=== PATIENT | male | born 1945 | race African-American/Black ===

== ENCOUNTER 2020-01-16 15:41 | Emergency (ER) | payer OTHER ==
--- OUTSIDE RECORDS SUMMARY | 2020-01-16 15:43 | XMS REPORT | Continuity of Care Document ---
:1945 Author Organization [facility] Care Team Providers Name Role Phone [facility] Unavailable Un available Problems Problem Status Onset Classification Date Comments Sourc e Date Reported Bradycardia Active Problem 09/06/2019 Medi crow (disorder) Group Hypertensive Active Problem 09/06/2019 Med ical disorder, Group systemic arterial (disorder) Obesity Active Problem 09/06/2019 Medica l (disorder) Group Ventricular Active Problem 09/06/2019 Medi crow premature Group complex (disorder) Medications Medication Details Route Status Patient Ordering Order Source Instructions Provider Date flecainide 100 mg = 1 Active 03/05/20 Medica l 100 mg oral tab, PO, 19 Group tablet Q12H, # 180 tab, 3 Refill(s), Pharmacy: [facility] amLODIPine 5 5 mg = 1 Active 03/05/20 Medica l mg oral tab, PO, 19 Group tablet BID, # 60 tab, 11 Refill(s), Pharmacy: [facility]08 amLODIPine 5 5 mg = 1 No Longer 08/25/19 Medi crow mg oral tab, PO, Active 19 Group tablet BID, # 60 tab, 11 Refill(s), Pharmacy: [facility]08 flecainide 100 mg = 1 Active 06/05/20 Medica l 100 mg oral tab, PO, 18 Group tablet Q12H, # 180 tab, 3 Refill(s), Pharmacy: [facility]08 amLODIPine 5 5 mg = 1 Active 02/14/20 Medica l mg oral tab, PO, 18 Group tablet BID, # 30 tab, 11 Refill(s), Pharmacy: [facility]08 flecainide 50 50 mg = 1 Active 02/14/20 Medi crow mg oral tab, PO, 18 Group tablet Q12H, # 60 tab, 5 Refill(s), Pharmacy: [facility] Allergies, Adverse Reactions, Alerts No Known Medication Allergies Immunizations No Data Provided for This Section Results No Data Provided for This Section Pathology Reports No Data Provided for This Section Diagnostic Reports No Data Provided for This Section Consultation Notes No Data Provided for This Section Discharge Summaries No Data Provided for This Section History and Physicals No Data Provided for This Section Vital Signs Vital Sign Value Date Comments Source Systolic (mm Hg) 150 09/03/2019 [facility] Diastolic (mm Hg) 70 09/03/2019 [facility] Heart Rate 63 09/03/2019 [facility] Height 187.96 cm 09/03/2019 [facility] Weight 108.182 09/03/2019 [facility] BMI Calculated 30.62 09/03/2019 [facility] Weight 104.091 03/05/2019 [facility] Height 187.96 cm 03/05/2019 [facility] BMI Calculated 29.46 03/05/2019 [facility] Heart Rate 54 03/05/2019 [facility] Systolic (mm Hg) 158 03/05/2019 [facility] Diastolic (mm Hg) 80 03/05/2019 [facility] Systolic (mm Hg) 150 09/05/2018 [facility] Diastolic (mm Hg) 72 09/05/2018 [facility] Heart Rate 67 09/05/2018 [facility] Height 187.96 cm 09/05/2018 [facility] Weight 106.818 09/05/2018 [facility] BMI Calculated 30.24 09/05/2018 [facility] BMI Calculated 30.54 06/05/2018 [facility] Height 185.42 cm 06/05/2018 [facility] Weight 105 06/05/2018 [facility] Systolic (mm Hg) 148 06/05/2018 [facility] Diastolic (mm Hg) 75 06/05/2018 [facility] Heart Rate 33 06/05/2018 [facility] BMI Calculated 31.2 02/13/2018 [facility] Weight 107.273 02/13/2018 [facility] Systolic (mm Hg) 158 02/13/2018 [facility] Diastolic (mm Hg) 74 02/13/2018 [facility] Heart Rate 46 02/13/2018 [facility] Height 185.42 cm 02/13/2018 [facility] Height 185.42 cm 12/25/2017 [facility] BMI Calculated 31.07 12/25/2017 [facility] Weight 106.818 12/25/2017 [facility] Systolic (mm Hg) 182 12/25/2017 [facility] Diastolic (mm Hg) 75 12/25/2017 [facility] Heart Rate 34 12/25/2017 [facility] Height 185.42 cm 07/03/2017 [facility] Weight 105.256 07/03/2017 [facility] Systolic (mm Hg) 140 07/03/2017 [facility] Diastolic (mm Hg) 80 07/03/2017 [facility] BMI Calculated 30.61 07/03/2017 [facility] Heart Rate 88 07/03/2017 [facility] Encounters Location Location Encounter Encounter Reason Attending ADM DC Stat us Source Details Type Number For Provider Date Date Visit Outpatient [id number] RANDEE 04/19 [facility] Outpatient [id number] ECHO VISIT 05/09 Act [facility] [place] Out[facility] [id number] [id number] [facility] [place] [facility] [id number] [facility] [id number] [facility] [id number] OTHER 07/03 Active [facility] VISIT [facility] Out[facility] [id number] Wesley 07/03 07/04 [facility] [place] /2016 [facility] Outpatient [id number] Wesley 07/03 07/04 [facility] [place] [id number] 08/18 [facility]2017 [facility] Outpatient [id number] RANDEE 12/25 [facility] Outpatient [id number] Randee 12/25 12/26 [facility] [place] /2017 [facility] Outpatient [id number] ECHO VISIT 02/[facility] [place] [facility] [id number] [facility] [place] [facility] Out[facility] [id number] Wesley 02/13 02/14 [facility] [place] [facility] [id number] Wesley 02/13 02/14 [facility] [place] /2017 [facility] Outpatient [id number] RANDEE [facility]/05 [facility] [id number] Randee 06/05 06/06 [facility] [place] /2017 [facility] Outpatient [id number] ECHO VISIT 09/05 [facility] Out[facility] [id number] RANDEE 09/05 [facility] [id number] Wesley 09/05 09/06 [facility] [place] /2018 [facility] [id number] Randee 09/05 09/06 [facility] [place] /2018 [facility] Outpatient [id number] Randee 03/05 [facility] [place] [facility] [id number] Randee 03/05 03/06 [facility] [place] /2018 [facility] Outpatient [id number] Randee 09/03 [facility] [facility] [place] [facility] [id number] Randee 09/03 09/04 [facility] [place] /2019 /2019 [facility] Outpatient [id number] Randee 03/03 [facility] Procedures No Data Provided for This Section Assessment and Plan No Data Provided for This Section Plan of Care No Data Provided for This Section Social History Social History Date Source Social History TypeResponse 09/03/2019 [facility] Smoking Status Never smoker; Exposure to Tobacco Smoke Unable to obtain; Cigarette Smoking Last 365 Days Unable to obtain; Reg Smoking Cessation Counseling No entered on: 09/03/19 Family History No Data Provided for This Section Advance Directives No Data Provided for This Section Functional Status No Data Provided for This Section
[2020-01-16 17:03] LABS: Absolute Lymphocytes (CBC) 0.4 K/uL (0.7-4.9); Basophils % 0.5 % (0-1.3); Hematocrit 22.3 % (39.6-49.0); Lymphocytes % 3.3 % (15.3-44.8); MPV 10.7 fL (7.6-11.3); Protime INR 1.27
[2020-01-16 17:19] LABS: Albumin 2.3 g/dL (3.4-5.0); Bilirubin Direct 0.3 mg/dL (0-0.2); Bilirubin Total 0.6 mg/dL (0.2-1.0); Magnesium 2.3 mg/dL (1.8-2.4); Potassium 3.9 mmol/L (3.5-5.1); Protein, Total 6.6 g/dL (6.4-8.2); Troponin (Emerg Dept Use Only) 0.02 ng/mL (0.0-0.045)
[2020-01-16 17:32] LABS: Urine Bacteria LOADED /HPF (NONE SEEN); Urine Culture Reflex Order REFLEXED; Urine RBC <5 /HPF (NONE SEEN)
--- NOTE | 2020-01-16 17:35 | RAD REPORT ---
EXAM DESCRIPTION: RAD - Knee Right 3 View - 01/16/2020 5:20 pm CLINICAL HISTORY: Right knee pain status post injury FINDINGS: No fracture or dislocation is seen. Bones are osteoporotic. If patient continues have symptoms to suggest an occult fracture, ligamentous or meniscal injury MRI would be recommended
--- NOTE | 2020-01-16 17:52 | RAD REPORT ---
EXAM DESCRIPTION: CT - Head C Spine Mpr Wo Con - 01/16/2020 5:38 pm CLINICAL HISTORY: Head and neck injury status post fall. Head and neck pain COMPARISON: None. TECHNIQUE: Computed axial tomography of the head and cervical spine was obtained. Sagittal and coronal reconstruction was performed. All CT scans are performed using dose optimization technique as appropriate and may include automated exposure control or mA/KV adjustment according to patient size. FINDINGS: An intracranial bleed is not seen. The ventricles are normal in caliber. An extra-axial fl uid collection is not noted.Fluid within the visualized sinuses and mastoids is not seen Mild posterior subluxation C4-C5. A cervical fracture is not visualized. No dislocation is noted. 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 A cervical fracture is not visualized. If the patient continues to have symptoms to suggest intracra nial /spinal cord pathology then MRI would be recommended
--- NOTE | 2020-01-16 17:53 | RAD REPORT ---
EXAM DESCRIPTION: Teto Single View01/16/2020 5:20 pm CLINICAL HISTORY: Chest pain COMPARISON: 2015 FINDINGS: The lungs appear clear of acute infiltrate. The heart is normal size IMPRESSION: No acute abnormalities displayed
[2020-01-16] MEDS ORDERED: CEFTRIAXONE/SWI 1gm 1 GM/10 ML SYR ONE (18:28)
[2020-01-16] MEDS ORDERED: PANTOPRAZOLE 40 MG INJ ONE (18:28)
[2020-01-16] MEDS ORDERED: NA CHLORIDE 0.9% 250 ML ONE (18:28)
--- NOTE | 2020-01-16 19:51 | ER ---
Nurse's Notes [facility] Name: Hoang Caamcho Age: 74 yrs Sex: Male : 1945 Arrival Date: 01/16/2020 Time: 15:43 Bed 15 Private MD: Diagnosis: Gastrointestinal hemorrhage, unspecified;Fall on same level from slipping, tripping and stumbling;Anemia Presentation: 01/15 16:03 Chief complaint: Patient states: "I went to my doctor last week and I was anemic so I aa5 know I need some blood". Pt c/o frequent falls since Saturday. Reports he fell twice today. Pt currently denies pain, pt states "I know I hit both of my knees and my forehead when I fell today in the restroom and I was having a hard time getting up". Pt denies LOC. Reports dizziness. 16:03 Coronavirus screen: Proceed with normal triage. Patient denies a cough. Patient denies aa5 shortness of breath or difficulty breathing. Patient denies measured and/or subjective temperature greater than 100.4F prior to today's visit. Patient denies travel on a cruise ship or to a country the [facility] currently lists as an affected area. Patient denies contact with known and/or suspected case of COVID-19. Ebola Screen: Patient negative for fever greater than or equal to 101.5 degrees Fahrenheit, and additional compatible Ebola Virus Disease symptoms. Initial Sepsis Screen: Does the patient meet any 2 criteria? No. Patient's initial sepsis screen is negative. Does the patient have a suspected source of infection? No. Patient's initial sepsis screen is negative. Risk Assessment: Do you want to hurt yourself or someone else? Patient reports no desire to harm self or others. Onset of symptoms was January 2020. 16:03 Acuity: ELLIOTT 2 aa5 16:03 Method Of Arrival: Wheelchair aa5 Triage Assessment: 16:03 General: Appears ill, Behavior is calm, cooperative, quiet. Pain: Denies pain. Neuro: ls4 No deficits noted. Neuro: Level of Consciousness is awake, alert, obeys commands, Oriented to person, place, time, situation, Pneumatic Press Hand are equal bilaterally Weakness Gait is unsteady, Speech is normal, Facial symmetry appears normal, Pupils are PERRLA, Intact Reports weakness Denies blurred vision difficulty swallowing, paresthesias numbness headache photophobia diplopia. Cardiovascular: Denies chest pain, Rhythm is atrial fibrillation With PVC's. Respiratory: Airway is patent Respiratory effort is even, unlabored, Respiratory pattern is regular, Breath sounds are clear bilaterally. GI: Patient currently denies abdominal pain, bloody stool, cramping, diarrhea, intolerance of fluids, intolerance of food, nausea, pain, rectal bleeding. : No signs and/or symptoms were reported regarding the genitourinary system. Denies burning with urination, discharge, inability to void, pain urinary frequency, urgency. Derm: Skin is intact, Skin is dry, Skin is pale, Skin temperature is warm. Musculoskeletal: Reports weakness in right leg and left leg. Historical: - Allergies: 16:03 No Known Allergies; aa5 - Home Meds: 19:45 amlodipine 5 mg tab 1 tab once daily [Active]; ls4 - PMHx: 16:03 Hypertension; aa5 - Immunization history:: Adult Immunizations unknown. - Social history:: Smoking status: Patient denies any tobacco usage or history of. Screenin:27 Abuse screen: Denies threats or abuse. Denies injuries from another. Nutritional ls4 screening: No deficits noted. Tuberculosis screening: No symptoms or risk factors identified. Fall Risk None identified. Assessment: 17:00 Reassessment: Patient appears in no apparent distress at this time. Patient and/or ls4 family updated on plan of care and expected duration. Pain level reassessed. Patient is alert, oriented x 3, equal unlabored respirations, skin warm/dry/pink. Patient denies pain at this time. 18:00 Reassessment: Patient appears in no apparent distress at this time. Patient and/or ls4 family updated on plan of care and expected duration. Pain level reassessed. Patient is alert, oriented x 3, equal unlabored respirations, skin warm/dry/pink. 19:00 Reassessment: Patient appears in no apparent distress at this time. Patient and/or ls4 family updated on plan of care and expected duration. Pain level reassessed. Patient is alert, oriented x 3, equal unlabored respirations, skin warm/dry/pink. 20:56 Reassessment: CALLED TRANSFER CENTER. DAVID ANSWERED AND STATED MELCHOR WILL CALL BACK IN ls4 15 MINUTES TO TAKE REPORT. DAVID ADVISED NOT TO DELAY CARE AND SEND PT, WHICH IS ALREADY INITIATED. 21:17 Reassessment: report given to GALILEA Davison of [facility]. mg2 22:30 Reassessment: Patient appears in no apparent distress at this time. Patient and/or ls4 family updated on plan of care and expected duration. Pain level reassessed. Patient is alert, oriented x 3, equal unlabored respirations, skin warm/dry/pink. Vital Signs: 16:04 BP 122 / 42; Pulse 96; Resp 18 S; Temp 97.5(O); Pulse Ox 98% on R/A; Weight 98.43 kg aa5 (R); Height 6 ft. 1 in. (185.42 cm) (R); Pain 0/10; 17:00 BP 118 / 53; Pulse 91; Resp 16; Pulse Ox 99% ; Pain 0/10; ls4 18:00 BP 122 / 50; Pulse 88; Resp 22; Pulse Ox 99% on R/A; Pain 0/10; ls4 19:00 BP 123 / 51; Pulse 91; Resp 16; Temp 98.3(O); Pulse Ox 99% on R/A; Pain 0/10; ls4 20:55 BP 144 / 54; Pulse 86; Resp 16; Pulse Ox 99% on R/A; Pain 0/10; ls4 22:00 BP 126 / 54; Pulse 84; Resp 16; Pulse Ox 99% on R/A; Pain 0/10; ls4 16:04 Body Mass Index 28.63 (98.43 kg, 185.42 cm) aa5 ED Course: 15:43 Patient arrived in ED. ag5 16:03 Arm band placed on Patient placed in an exam room, on a stretcher. aa5 16:03 Patient has correct armband on for positive identification. Bed in low position. Call ls4 light in reach. Side rails up X 1. surveillance system monitor on. Pulse ox on. NIBP on. 16:03 Door closed. ls4 16:03 No provider procedures requiring assistance completed. ls4 16:13 Sanjana Sherman, GALILEA is Primary Nurse. ls4 16:20 Triage completed. aa5 16:21 Anthony Brown PA is PHCP. cp 16:21 Anthony Clarke MD is Attending Physician. cp 16:30 Initial lab(s) drawn, by tn, sent to lab. Urine collected: clean catch specimen. ls4 Inserted saline lock: 20 gauge in left antecubital area, using aseptic technique. Blood collected. Patient maintains SpO2 saturation greater than 95% on room air. 16:44 Inserted saline lock: 22 gauge in right hand, using aseptic technique. ca1 17:21 XRAY Chest (1 view) In Process Unspecified. EDMS 17:21 XRAY Knee RIGHT 3 view In Process Unspecified. EDMS 17:38 CT Head C Spine In Process Unspecified. EDMS 19:09 initiated transfer to [facility] spoke with Wendy. ar5 19:37 spoke with WES Shaffer. ar5 22:50 Patient transferred, IV remains in place. intact, No redness/swelling at site. ls4 Administered Medications: 16:15 Drug: ProTONIX 8 mg/hr Route: IV; Rate: 25 ml/hr; Site: right antecubital; ls4 22:52 Follow up: IV Status: Infusion continued upon transfer; IV Intake: 175ml ls4 16:15 Drug: ProTONIX 40 mg Route: IVP; Site: right hand; ls4 19:01 Follow up: Response: No adverse reaction ls4 16:15 Drug: Rocephin 1 grams Route: IV; Rate: calculated rate; Site: left antecubital; ls4 16:30 Follow up: Response: No adverse reaction; IV Status: Completed infusion; IV Intake: [id number] Intake: 16:30 IV: 10ml; Total: 10ml. ls4 Outcome: 19:51 ER care complete, transfer ordered by . cp 22:49 Transferred by ground EMS to [facility], Transfer form completed. ls4 X-rays sent w/ patient. 22:49 Condition: unchanged 22:49 Instructed on the need for transfer. 22:50 Patient left the ED. ls4 Addendum: 01/21/2020 11:53 Addendum: Culture Results: Positive urine culture. Phone call Attempt #1 Pt transferred s s to [facility]. Called and spoke with counter control operator who reports that patient has been treated and discharged home. Signatures: Dispatcher [employer] EDDeborah Tracy RN RN aa5 Korin Baker RN RN ss Anthony Brown, Maxi Jeronimo cp, RN RN mg2 Sanjana Sherman, RN RN ls4 Yvonne Morales Cheryl, RN RN ca1 Christina, Vanda [facility]
--- NOTE | 2020-01-16 19:51 | EDPHYS ---
Physician Documentation [facility] Name: Hoang Camacho Age: 74 yrs Sex: Male : 1945 Arrival Date: 01/16/2020 Time: 15:43 Bed 15 Private MD: ED Physician Anthony Clarke HPI: 01/15 16:32 This 74 yrs old Black Male presents to ER via Wheelchair with complaints of Anemia, cp Dizziness, Fall Injury. 16:32 The patient's problem is reported as weakness, that is generalized, dizziness. cp 16:32 Onset: The symptoms/episode began/occurred last week. cp 16:32 Duration: The episode is continuous. Context: Possible contributing factors include: cp history of anemia. The symptoms are aggravated by standing. Associated signs and symptoms: Pertinent positives: dizziness, lightheadedness, Pertinent negatives: abdominal pain, chest pain, confusion, diaphoresis, diarrhea, headache, seizure, vomiting. Severity of symptoms: in the emergency department the symptoms are unchanged despite home interventions. Patient's baseline: Neuro: alert and fully oriented, Motor: no deficits, Ambulation: walks without assistance, Speech: normal. Historical: - Allergies: 16:03 No Known Allergies; aa5 - Home Meds: 19:45 amlodipine 5 mg tab 1 tab once daily [Active]; ls4 - PMHx: 16:03 Hypertension; aa5 - Immunization history:: Adult Immunizations unknown. - Social history:: Smoking status: Patient denies any tobacco usage or history of. ROS: 16:35 Cardiovascular: Negative for chest pain, edema, palpitations. cp 16:35 Eyes: Negative for injury, pain, redness, and discharge. cp 16:35 Constitutional: Negative for body aches, chills, fever, poor PO intake. 16:35 ENT: Negative for ear pain, sore throat, difficulty swallowing, difficulty handling secretions. 16:35 Respiratory: Negative for cough, shortness of breath, wheezing. 16:35 Abdomen/GI: Positive for black/tarry stool, Negative for abdominal pain, nausea, vomiting, and diarrhea, constipation, anorexia. 16:35 : Negative for urinary symptoms, flank pain, testicular pain 16:35 Neuro: Positive for dizziness, weakness, Negative for altered mental status, headache, loss of consciousness, numbness, seizure activity, syncope. 16:35 All other systems are negative. Exam: 16:31 ECG was reviewed by the Attending Physician. cp 16:40 Constitutional: The patient appears in no acute distress, alert, awake, cp non-diaphoretic, non-toxic, well developed, well nourished. 16:40 Head/Face: Normocephalic, atraumatic. cp 16:40 Eyes: Periorbital structures: appear normal, Pupils: equal, round, and reactive to light and accomodation, Extraocular movements: intact throughout, Conjunctiva: normal, no exudate, no injection, Sclera: no appreciated abnormality, Lids and lashes: appear normal, bilaterally. 16:40 ENT: External ear(s): are unremarkable, Nose: is normal, Mouth: Lips: moist, Oral mucosa: pink and intact, moist, Posterior pharynx: is normal, airway is patent, no erythema, no exudate. 16:40 Neck: C-spine: vertebral tenderness, is not appreciated, crepitus, is not appreciated, ROM/movement: pain, is not appreciated, limited range of motion, is not appreciated, nuchal rigidity, is not appreciated. 16:40 Chest/axilla: Inspection: normal, Palpation: is normal, no crepitus, no tenderness. 16:40 Cardiovascular: Rate: normal, Rhythm: regular, Edema: is not appreciated, JVD: is not appreciated. 16:40 Respiratory: the patient does not display signs of respiratory distress, Respirations: normal, no use of accessory muscles, no retractions, labored breathing, is not present, Breath sounds: are clear throughout, no decreased breath sounds, no stridor, no wheezing. 16:40 Abdomen/GI: Inspection: abdomen appears normal, Bowel sounds: active, all quadrants, Palpation: abdomen is soft and non-tender, in all quadrants. 16:40 Back: pain, is absent, ROM is normal. 16:40 Skin: no rash present. 16:40 Neuro: Orientation: to person, place \T\ time. Mentation: is normal, Cerebellar function: is grossly normal, Motor: moves all fours, strength is normal, Sensation: is normal. 18:00 Radiologist reports: no acute findings cp Vital Signs: 16:04 BP 122 / 42; Pulse 96; Resp 18 S; Temp 97.5(O); Pulse Ox 98% on R/A; Weight 98.43 kg aa5 (R); Height 6 ft. 1 in. (185.42 cm) (R); Pain 0/10; 17:00 BP 118 / 53; Pulse 91; Resp 16; Pulse Ox 99% ; Pain 0/10; ls4 18:00 BP 122 / 50; Pulse 88; Resp 22; Pulse Ox 99% on R/A; Pain 0/10; ls4 19:00 BP 123 / 51; Pulse 91; Resp 16; Temp 98.3(O); Pulse Ox 99% on R/A; Pain 0/10; ls4 20:55 BP 144 / 54; Pulse 86; Resp 16; Pulse Ox 99% on R/A; Pain 0/10; ls4 22:00 BP 126 / 54; Pulse 84; Resp 16; Pulse Ox 99% on R/A; Pain 0/10; ls4 16:04 Body Mass Index 28.63 (98.43 kg, 185.42 cm) aa5 MDM: 16:28 Patient medically screened. 19:15 Data reviewed: vital signs, nurses notes, lab test result(s), EKG, radiologic studies, cp CT scan, plain films. 19:15 Counseling: I had a detailed discussion with the patient and/or guardian regarding: the historical points, exam findings, and any diagnostic results supporting the discharge/admit diagnosis, lab results, radiology results, the need to transfer to another facility, [facility] does not immediately have the required specialist. 19:40 Physician consultation: was contacted at 19:40, regarding consult, patient's condition, DR Shaffer, GI physician \T\[facility], will consult on patient and request transfer to hospitalist services. 20:20 Physician consultation: was contacted at 20:18, regarding regarding transfer, to [facility]. patient's condition, DR Dhillon, hospitalist, will accept patient as transfer. 01/15 16:29 Order name: Type And Screen 01/15 16:29 Order name: Basic Metabolic Panel; Complete Time: 17:27 cp 01/15 17:27 Interpretation: Normal except: NA 132; CL 96; GLUC 180; CRE 1.32; GFR 64; BUN 54. 01/15 16:29 Order name: CBC with Diff; Complete Time: 20:10 01/15 17:51 Interpretation: Normal except: WBC 13.5; RBC 2.50; HGB 7.4; HCT 22.3; RDW 15.5; ISRAEL% cp 91.7; LYM% 3.3; NEUT A 12.3; LYMA 0.4. 01/15 16:29 Order name: LFT's; Complete Time: 17:27 01/15 16:29 Order name: Magnesium; Complete Time: 17:27 01/15 16:29 Order name: NT PRO-BNP; Complete Time: 17:27 01/15 16:29 Order name: PT-INR; Complete Time: 17:27 01/15 16:29 Order name: Troponin (emerg Dept Use Only); Complete Time: 17:27 01/15 16:29 Order name: Urine Microscopic Only; Complete Time: 17:51 01/15 17:51 Interpretation: Normal except: UWBC 5-10; UBACT LOADED. 01/15 17:05 Order name: Urine Dipstick--Ancillary (enter results) 01/15 17:33 Order name: Urine Culture [facility] 01/15 20:04 Order name: CBC Smear Scan; Complete Time: 20:10 [facility] 01/15 20:59 Order name: ABO/RH no charge [facility] 01/15 16:29 Order name: XRAY Chest (1 view); Complete Time: 17:58 01/15 16:29 Order name: EKG; Complete Time: 16:29 01/15 16:29 Order name: Cardiac monitoring; Complete Time: 17:26 01/15 16:29 Order name: EKG - Nurse/Tech; Complete Time: 17:26 01/15 16:29 Order name: IV Saline Lock; Complete Time: 17:26 01/15 16:29 Order name: Labs collected and sent; Complete Time: 17:26 01/15 16:29 Order name: O2 Per Protocol; Complete Time: 17:26 01/15 16:29 Order name: O2 Sat Monitoring; Complete Time: 17:26 01/15 16:29 Order name: XRAY Knee RIGHT 3 view; Complete Time: 17:51 01/15 16:29 Order name: Urine Dipstick-Ancillary (obtain specimen); Complete Time: 17:26 01/15 16:54 Order name: CT Head C Spine; Complete Time: 17:58 cp 01/15 19:11 Order name: Vital Signs: please update; Complete Time: 19:50 cp EC:31 Rate is 94 beats/min. Rhythm is regular. W[place] interval is prolonged at 226 msec. QRS cp interval is normal. QT interval is prolonged. Interpreted by me. Reviewed by me. Administered Medications: 16:15 Drug: ProTONIX 8 mg/hr Route: IV; Rate: 25 ml/hr; Site: right antecubital; ls4 22:52 Follow up: IV Status: Infusion continued upon transfer; IV Intake: 175ml ls4 16:15 Drug: ProTONIX 40 mg Route: IVP; Site: right hand; ls4 19:01 Follow up: Response: No adverse reaction ls4 16:15 Drug: Rocephin 1 grams Route: IV; Rate: calculated rate; Site: left antecubital; ls4 16:30 Follow up: Response: No adverse reaction; IV Status: Completed infusion; IV Intake: [id number] Disposition: 01/16 16:56 Co-signature as Attending Physician, Anthony Clarke MD I agree with the assessment and bebe plan of care. Disposition: 01/16/20 19:51 Transfer ordered to [facility]. Diagnosis are Gastrointestinal hemorrhage, unspecified, Fall on same level from slipping, tripping and stumbling, Anemia. - Reason for transfer: Higher level of care. - Accepting physician is . - Condition is Stable. - Problem is new. - Symptoms have improved. Signatures: Dispatcher [employer] Anthony Cesar MD MD cha Calderon, Audri, RN RN aa5 Anthony Brown PA PA Sanjana Cartagena, RN RN ls4 Corrections: (The following items were deleted from the chart) 01/15 17:51 17:27 Normal except: WBC 13.5; RBC 2.50; HGB 7.4; HCT 22.3; RDW 15.5; ISRAEL% 91.7; LYM% cp 3.3; NEUT A 12.3. cp 22:50 19:51 01/16/2020 19:51 Transfer ordered to [facility]. ls4 Diagnosis is Gastrointestinal hemorrhage, unspecified; Fall on same level from slipping, tripping and stumbling; Anemia. Reason for transfer: Higher level of care. Accepting physician is . Condition is Stable. Problem is new. Symptoms have improved. cp
[2020-01-16 20:04] LABS: Blood Morphology Comment NOTED (NOT SEEN); Hypochromasia 1+; Platelet Estimate ADEQ; Polychromasia 1+; Urine White Blood Cell Casts OK
[2020-01-16 20:59] LABS: Urine Blood NEGATIVE (NEG); Urine Glucose NEGATIVE (NEG); Urine Protein NEGATIVE (NEG); Urine pH 7.5 (5.0-7.0)
[2020-01-16 23:06] VITALS: O2SAT 99
[2020-01-16 23:09] VITALS: TEMP 98.3
[2020-01-16 23:12] VITALS: BP 126/54
== END 2020-01-16 22:50 | disposition short-term general hospital (02) ==
LOC: ER 15:41
DX: K92.2 Gastrointestinal hemorrhage, unspecified (principal); D64.9 Anemia, unspecified; W01.0XXA Fall on same level from slipping, tripping and stumbling without subsequent striking against object, initial encounter; Y93.9 Activity, unspecified; Y92.9 Unspecified place or not applicable; I10 Essential (primary) hypertension
CPT/HCPCS: 93005; 87088; 85025; 87086; 80048; 36415; 86900; 83735; 86850; 85610; 86901; 80076; 87077; 87186; 84484; 83880; 70450; 72125; 71045; 73562; 99285; C9113; J0696; J7030; 81003; 81015

== ENCOUNTER 2020-02-11 16:55 | Inpatient (IN) | payer OTHER ==
[2020-02-11 20:57] LABS: Albumin 2.3 g/dL (3.4-5.0); Bilirubin Direct 1.3 mg/dL (0-0.2); Bilirubin Total 2.1 mg/dL (0.2-1.0); Magnesium 2.9 mg/dL (1.8-2.4); Potassium 5.2 mmol/L (3.5-5.1); Protein, Total 6.5 g/dL (6.4-8.2); Troponin (Emerg Dept Use Only) 0.04 ng/mL (0.0-0.045)
--- NOTE | 2020-02-11 21:03 | RAD REPORT ---
EXAM DESCRIPTION: RAD - Chest Single View - 02/11/2020 8:57 pm CLINICAL HISTORY: GENERALIZED WEAKNESS Chest pain. COMPARISON: Chest Single View dated 01/16/2020; Chest Single View dated 03/29/2016 FINDINGS: Portable technique limits examination quality. The lungs are mildly emphysematous with small bilateral pleural effusions suspected. The heart is nor mal in size. Tortuous thoracic aorta. IMPRESSION: Small bilateral pleural effusions.
[2020-02-11 21:47] LABS: Protime INR 1.55
[2020-02-11 22:03] LABS: Absolute Lymphocytes (CBC) 0.6 K/uL (0.7-4.9); Basophils % 1.3 % (0-1.3); Hematocrit 29.7 % (39.6-49.0); MPV 9.9 fL (7.6-11.3); RBC Red Blood Cell Count 3.35 M/uL (4.33-5.43)
--- NOTE | 2020-02-11 22:33 | ER ---
Nurse's Notes [facility] Name: Hoang Camacho Age: 74 yrs Sex: Male : 1945 Arrival Date: 02/11/2020 Time: 17:18 Bed 15 Private MD: Diagnosis: Pancytopenia;Acute Kidney Injury;Pleural Effusions Presentation: 02/10 17:27 Chief complaint: Patient states: Here a month ago, transferred to [facility] for upper GI ca1 bleed. Hgb 3 and positive for H.Pylori Medications given and taken at home: Amoxicillin, Metronidazole, clarithromycin, and Omeprazole. Abx completed 2-3 days ago. Rash started all over the body few days ago. Reports generalized body weakness, SOB with exertion and swelling of hands and feet. More on the feet and ankles. Denies fever and cough. Coronavirus screen: Proceed with normal triage. Patient denies a cough. Patient denies shortness of breath or difficulty breathing. Patient denies measured and/or subjective temperature greater than 100.4F prior to today's visit. Patient denies travel on a cruise ship or to a country the [facility] currently lists as an affected area. Patient denies contact with known and/or suspected case of COVID-19. Ebola Screen: Patient negative for fever greater than or equal to 101.5 degrees Fahrenheit, and additional compatible Ebola Virus Disease symptoms Patient denies exposure to infectious person. Patient denies travel to an Ebola-affected area in the 21 days before illness onset. No symptoms or risks identified at this time. Initial Sepsis Screen: Does the patient meet any 2 criteria? No. Patient's initial sepsis screen is negative. Does the patient have a suspected source of infection? Yes: No. Patient's initial sepsis screen is negative. Risk Assessment: Do you want to hurt yourself or someone else? Patient reports no desire to harm self or others. Onset of symptoms was February 11, 2020. 17:27 Method Of Arrival: Wheelchair ca1 17:27 Acuity: ELLIOTT 3 ca1 Historical: - Allergies: 17:38 No Known Allergies; ca1 - Home Meds: 23:14 amlodipine 5 mg tab 1 tab once daily [Active]; lp1 - PMHx: 17:38 Hypertension; ca1 - Immunization history:: Adult Immunizations up to date. - Social history:: Smoking status: Patient denies any tobacco usage or history of. Screenin:30 Abuse screen: Denies threats or abuse. Denies injuries from another. Nutritional lp1 screening: No deficits noted. Tuberculosis screening: No symptoms or risk factors identified. Fall Risk Total Mota Fall Scale indicates High Risk Score (45 or more points). Fall prevention measures have been instituted. Side Rails Up X 2 As available patient and family educated on Fall Prevention Program and Strategies. Assessment: 20:15 General: Appears in no apparent distress. Behavior is appropriate for age. Pain: Denies lp1 pain. Neuro: Level of Consciousness is awake, obeys commands, Oriented to person, place, situation. Cardiovascular: Patient's skin is warm and dry. Respiratory: Respiratory effort is even. GI: Abdomen is non-distended. : No signs and/or symptoms were reported regarding the genitourinary system. EENT: No signs and/or symptoms were reported regarding the EENT system. Derm: Skin is intact, Skin is dry, Skin is jaundiced, Rash noted that is macular, red, on chest and abdomen. Musculoskeletal: No deficits noted. 22:10 Reassessment: Patient appears in no apparent distress at this time. Patient and/or lp1 family updated on plan of care and expected duration. Pain level reassessed. Patient resting, eyes closed, respirations even. 23:30 Reassessment: Patient appears in no apparent distress at this time. No changes from lp1 previously documented assessment. Patient and/or family updated on plan of care and expected duration. Pain level reassessed. 02/11 07:00 Reassessment: RECD REPORT FROM NARCISA CALERO. PT ON ER HOLD, SEE [facility]. bp 08:49 Reassessment: Ultrasound at the bedside. sv 11:44 Reassessment: ADMIT COMPLETE. PT BILLY WITH RN TO ICU 7. bp Vital Signs: 02/10 17:27 BP 101 / 70; Pulse 88; Resp 15 S; Temp 97.9(O); Pulse Ox 99% on R/A; Weight 98.43 kg ca1 (R); Height 6 ft. 0 in. (182.88 cm); 21:00 BP 108 / 69; Pulse 83; Resp 20; Pulse Ox 100% on R/A; wh 22:15 BP 111 / 70; Pulse 79; Resp 20; Pulse Ox 97% on R/A; wh 23:30 BP 118 / 70; Pulse 77; Resp 20; Pulse Ox 99% on R/A; lp1 02/11 01:00 BP 119 / 71; Pulse 75; Resp 20; Pulse Ox 99% on R/A; lp1 02/10 17:27 Body Mass Index 29.43 (98.43 kg, 182.88 cm) ca1 ED Course: 02/10 17:18 Patient arrived in ED. fj1 17:37 Triage completed. ca1 17:38 Arm band placed on right wrist. ca1 19:35 Rao Villaseñor MD is Attending Physician. mh7 19:56 Narcisa Aggarwal, RN is Primary Nurse. lp1 20:00 Patient has correct armband on for positive identification. Placed in gown. Bed in low lp1 position. Call light in reach. monitor worker on. Pulse ox on. NIBP on. 20:00 Notified ED physician of a critical lab result(s). WBC 1.9, PLatelet 28. lp1 20:30 Initial lab(s) drawn, by wy, sent to lab. Inserted saline lock: 20 gauge in left jp3 antecubital area, using aseptic technique. Blood collected. 22:31 Van Win is Hospitalizing Provider. 7 23:13 No provider procedures requiring assistance completed. Patient admitted, IV remains in lp1 place. Administered Medications: 22:42 Drug: Rocephin - (cefTRIAXone) 1 grams {Note: GIven in 10ml Ivp .} Route: IVPB; Infused wh Over: 30 mins; Site: left antecubital; 23:58 Follow up: IV Status: Completed infusion; IV Intake: 10ml lp1 22:44 Drug: AZITHromycin 500 mg Route: IVPB; Infused Over: 1 hrs; Site: left antecubital; 23:58 Follow up: IV Status: Completed infusion; IV Intake: 250ml lp1 Intake: 23:58 IV: 250ml; Total: 250ml. lp1 23:58 IV: 10ml; Total: 260ml. lp1 Outcome: 22:33 Decision to Hospitalize by Provider. 7 23:13 Condition: stable lp1 23:13 Instructed on the need for admit. 02/11 01:02 Admitted to ER Hold. Please see [facility] for further documentation. lp1 11:47 Patient left the ED. bp Signatures: Ramy, Destiny, RN RN sv Narcisa Aggarwal RN RN lp1 Jose Guajardo Brian RN RN bp Volodymyr Verde jp3 Odessa Ly RN RN ca1 Issac Perez1 Rao Villaseñor MD MD mh7
--- NOTE | 2020-02-11 22:33 | EDPHYS ---
Physician Documentation [facility] Name: Hoang Camacho Age: 74 yrs Sex: Male : 1945 Arrival Date: 02/11/2020 Time: 17:18 Bed 15 Private MD: ED Physician Rao Villaseñor HPI: 02/10 20:14 This 74 yrs old Black Male presents to ER via Wheelchair with complaints of General mh7 Weakness, PREVIIOUS PROC. FOR LOSS OF BLOOD. 20:15 Generalized weakness/fatigue. Onset: The symptoms/episode began/occurred 1 week(s) ago. mh7 Severity of symptoms: At their worst the symptoms were moderate 3 day(s) ago, in the emergency department the symptoms are unchanged. The patient has experienced a previous episode, last month. Patient reports generalized weakness/fatigue for the past week that has increased over the past three days. He reports symptoms worse with walking short distances. He also reports decreased appetite. He denies headache, chest pain, abdominal pain, SOB, fever, cough, nausea, vomiting, numbness/tingling, or focal weakness.. Historical: - Allergies: 17:38 No Known Allergies; ca1 - Home Meds: 23:14 amlodipine 5 mg tab 1 tab once daily [Active]; lp1 - PMHx: 17:38 Hypertension; ca1 - Immunization history:: Adult Immunizations up to date. - Social history:: Smoking status: Patient denies any tobacco usage or history of. ROS: 20:15 Constitutional: Negative for fever, chills, and weight loss, Eyes: Negative for injury, mh7 pain, redness, and discharge, ENT: Negative for injury, pain, and discharge, Neck: Negative for injury, pain, and swelling, Cardiovascular: Negative for chest pain, palpitations, and edema, Respiratory: Negative for shortness of breath, cough, wheezing, and pleuritic chest pain. 20:15 Back: Negative for injury and pain, : Negative for injury, bleeding, discharge, and swelling, MS/Extremity: Negative for injury and deformity, Skin: Negative for injury, rash, and discoloration, Psych: Negative for depression, anxiety, suicide ideation, homicidal ideation, and hallucinations, Allergy/Immunology: Negative for hives, rash, and allergies, Endocrine: Negative for neck swelling, polydipsia, polyuria, polyphagia, and marked weight changes, Hematologic/Lymphatic: Negative for swollen nodes, abnormal bleeding, and unusual bruising. 20:15 Abdomen/GI: Positive for diarrhea. Exam: 20:15 Constitutional: This is a well developed, well nourished patient who is awake, alert, mh7 and in no acute distress. Head/Face: Normocephalic, atraumatic. Eyes: Pupils equal round and reactive to light, extra-ocular motions intact. Lids and lashes normal. Conjunctiva and sclera are non-icteric and not injected. Cornea within normal limits. Periorbital areas with no swelling, redness, or edema. ENT: Nares patent. No nasal discharge, no septal abnormalities noted. Tympanic membranes are normal and external auditory canals are clear. Oropharynx with no redness, swelling, or masses, exudates, or evidence of obstruction, uvula midline. Mucous membranes moist. Neck: Trachea midline, no thyromegaly or masses palpated, and no cervical lymphadenopathy. Supple, full range of motion without nuchal rigidity, or vertebral point tenderness. No Meningismus. Chest/axilla: Normal chest wall appearance and motion. Nontender with no deformity. No lesions are appreciated. Cardiovascular: Regular rate and rhythm with a normal S1 and S2. No gallops, murmurs, or rubs. Normal PMI, no JVD. No pulse deficits. Respiratory: Lungs have equal breath sounds bilaterally, clear to auscultation and percussion. No rales, rhonchi or wheezes noted. No increased work of breathing, no retractions or nasal flaring. 20:15 Back: No spinal tenderness. No costovertebral tenderness. Full range of motion. Skin: Warm, dry with normal turgor. Normal color with no rashes, no lesions, and no evidence of cellulitis. MS/ Extremity: Pulses equal, no cyanosis. Neurovascular intact. Full, normal range of motion. Neuro: Awake and alert, GCS 15, oriented to person, place, time, and situation. Cranial nerves II-XII grossly intact. Motor strength 5/5 in all extremities. Sensory grossly intact. Cerebellar exam normal. Normal gait. Psych: Awake, alert, with orientation to person, place and time. Behavior, mood, and affect are within normal limits. 20:15 Abdomen/GI: Inspection: abdomen appears normal, Bowel sounds: normal, in all quadrants, Palpation: abdomen is soft and non-tender, in all quadrants, Rectal exam: Stool: normal, guaiac negative, Indicators: McBurney's point is not tender, England's sign is negative, Rovsing's sign is negative, Obturator sign is negative, Psoas sign is negative, Liver: no appreciated palpable abnormalities, Hernia: not appreciated. Vital Signs: 17:27 BP 101 / 70; Pulse 88; Resp 15 S; Temp 97.9(O); Pulse Ox 99% on R/A; Weight 98.43 kg ca1 (R); Height 6 ft. 0 in. (182.88 cm); 21:00 BP 108 / 69; Pulse 83; Resp 20; Pulse Ox 100% on R/A; wh 22:15 BP 111 / 70; Pulse 79; Resp 20; Pulse Ox 97% on R/A; wh 23:30 BP 118 / 70; Pulse 77; Resp 20; Pulse Ox 99% on R/A; lp1 02/11 01:00 BP 119 / 71; Pulse 75; Resp 20; Pulse Ox 99% on R/A; lp1 02/10 17:27 Body Mass Index 29.43 (98.43 kg, 182.88 cm) ca1 MDM: 02/10 19:48 [facility]. [facility] 22:30 Differential Diagnosis sepsis, CHF, Pneumonia, Generalized Weakness, Dehydration. Data [facility] reviewed: vital signs, nurses notes, old medical records, lab test result(s), cardiac enzymes, CBC, electrolytes, EKG, radiologic studies, plain films. 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 Interpretation: normal. Counseling: I had a detailed discussion with the patient and/or guardian regarding: the historical points, exam findings, and any diagnostic results supporting the discharge/admit diagnosis, lab results, radiology results, the need for further work-up and treatment in the hospital. 02/11 01:18 Response to treatment: the patient's symptoms have markedly improved after treatment. [facility] 02/10 19:49 Order name: Basic Metabolic Panel [facility] 02/10 19:49 Order name: CBC with Diff [facility] 02/10 19:49 Order name: LFT's [facility] 02/10 19:49 Order name: Magnesium [facility] 02/10 19:49 Order name: NT PRO-BNP [facility] 02/10 19:49 Order name: PT-INR [facility] 02/10 19:49 Order name: Troponin (emerg Dept Use Only) [facility] 02/10 21:01 Order name: Basic Metabolic Panel; Complete Time: 21:11 EDMS 02/10 21:01 Order name: Liver (Hepatic) Function; Complete Time: 21:11 EDMS 02/10 21:01 Order name: Troponin (Emerg Dept Use Only); Complete Time: 21:11 EDMS 02/10 21:01 Order name: NT PRO-BNP; Complete Time: 21:11 EDMS 02/10 21:01 Order name: Magnesium; Complete Time: 21:11 EDMS 02/10 22:01 Order name: Protime (+INR); Complete Time: 22:19 EDMS 02/10 22:08 Order name: CBC with Automated Diff [facility] 02/10 22:21 Order name: Blood Culture Adult (2) [facility] 02/10 23:43 Order name: CBC Smear Scan; Complete Time: 06:13 EDMS 02/11 06:40 Order name: Protime (+INR); Complete Time: 06:13 EDMS 02/11 06:40 Order name: PTT, Activated Partial Thromb; Complete Time: 06:13 EDMS 02/11 06:46 Order name: CBC with Automated Diff; Complete Time: 06:13 EDMS 02/11 06:59 Order name: Comprehensive Metabolic Panel; Complete Time: 06:13 EDMS 02/11 06:59 Order name: Phosphorus; Complete Time: 06:13 EDMS 02/11 06:59 Order name: Magnesium; Complete Time: 06:13 EDMS 02/11 08:49 Order name: Manual Differential; Complete Time: 06:13 EDMS 02/11 09:05 Order name: CBC with Automated Diff; Complete Time: 06:13 EDMS 02/11 09:20 Order name: Sedimentation Rate, Westergren; Complete Time: 06:13 EDMS 02/11 09:24 Order name: Comprehensive Metabolic Panel; Complete Time: 06:13 EDMS 02/11 09:24 Order name: Lactic Dehydrogenase; Complete Time: 06:13 EDMS 02/11 09:24 Order name: C-Reactive Protein; Complete Time: 06:13 [facility] 02/11 09:24 Order name: Magnesium; Complete Time: 06:13 [facility] 02/11 10:31 Order name: Rheumatoid Factor; Complete Time: 06:13 [facility] 02/10 19:49 Order name: XRAY Chest (1 view) [facility] 02/10 19:49 Order name: EKG; Complete Time: 21:23 [facility] 02/10 19:49 Order name: Cardiac monitoring; Complete Time: 20:14 [facility] 02/10 19:49 Order name: EKG - Nurse/Tech; Complete Time: 20:14 [facility] 02/10 19:49 Order name: IV Saline Lock; Complete Time: 20:58 [facility] 02/10 19:49 Order name: Labs collected and sent; Complete Time: 20:58 [facility] 02/10 19:49 Order name: O2 Per Protocol; Complete Time: 20:14 [facility] 02/10 19:49 Order name: O2 Sat Monitoring; Complete Time: 20:15 [facility] 02/10 19:49 Order name: Urine Dipstick-Ancillary (obtain specimen); Complete Time: 10:18 [facility] 02/10 21:05 Order name: RAD; Complete Time: 21:11 [facility] 02/10 22:54 Order name: CT Chest Abdomen Pelvis W/O Contrast [facility] 02/11 09:40 Order name: US; Complete Time: 06:13 [facility] 02/11 09:44 Order name: CT; Complete Time: 06:13 EDMS Administered Medications: 02/10 22:42 Drug: Rocephin - (cefTRIAXone) 1 grams {Note: GIven in 10ml Ivp .} Route: IVPB; Infused wh Over: 30 mins; Site: left antecubital; 23:58 Follow up: IV Status: Completed infusion; IV Intake: 10ml lp1 22:44 Drug: AZITHromycin 500 mg Route: IVPB; Infused Over: 1 hrs; Site: left antecubital; 23:58 Follow up: IV Status: Completed infusion; IV Intake: 250ml lp1 Disposition: 02/11/20 22:33 Hospitalization ordered by [facility] for Inpatient Admission. Preliminary diagnosis are Pancytopenia, Acute Kidney Injury, Pleural Effusions. - Bed requested for Intensive Care Unit. - Status is Inpatient Admission. bp - Condition is Stable. - Problem is new. - Symptoms have improved. Signatures: Dispatcher [employer] EDMS Dania Aggarwal RN RN lp1 Delmy Negrete RN RN Jose Guajardo Kuldeep Neil, RN GALILEA Shanna Wolf Odessa Ly RN RN [facility] Rao Villaseñor MD MD 7 Corrections: (The following items were deleted from the chart) 23:18 22:33 Hospitalization Ordered by [facility] for Inpatient Admission. Preliminary cg diagnosis is Pancytopenia; Acute Kidney Injury; Pleural Effusions. Bed requested for Telemetry/MedSurg (Inpatient). Status is Inpatient Admission. Condition is Stable. Problem is new. Symptoms have improved. [facility] 23:19 23:18 02/11/2020 22:33 Hospitalization Ordered by [facility]ir[facility] for Inpatient cg Admission. Preliminary diagnosis is Pancytopenia; Acute Kidney Injury; Pleural Effusions. Bed requested for [facility] ER HOLD. Status is Inpatient Admission. Condition is Stable. Problem is new. Symptoms have improved. 02/11 09:54 07 23:19 02/11/2020 22:33 Hospitalization Ordered by [facility] for Inpatient eb Admission. Preliminary diagnosis is Pancytopenia; Acute Kidney Injury; Pleural Effusions. Bed requested for [facility] ER HOLD. Status is Inpatient Admission. Condition is Stable. Problem is new. Symptoms have improved. 02/11 11:47 09:54 02/11/2020 22:33 Hospitalization Ordered by [facility] for Inpatient bp Admission. Preliminary diagnosis is Pancytopenia; Acute Kidney Injury; Pleural Effusions. Bed requested for Intensive Care Unit. Status is Inpatient Admission. Condition is Stable. Problem is new. Symptoms have improved. eb
[2020-02-11] MEDS ORDERED: AZITHROMYCIN 500 MG INJ IVPB ONE (22:44)
[2020-02-11] MEDS ORDERED: CEFTRIAXONE/SWI 1gm 1 GM/10 ML SYR ONE (22:44)
[2020-02-11] MEDS ORDERED: NA CHLORIDE 0.9% 250 ML ONE (22:44)
[2020-02-11 23:42] LABS: Blood Morphology Comment NOTED (NOT SEEN); White Blood Cell Scan OK
--- NOTE | 2020-02-11 23:42 | P.HP ---
Certification for Inpatient Patient admitted to: Inpatient With expected LOS: >2 Midnights Practitioner: I am a practitioner with admitting privileges, knowledge of patient current condition, hospital course, and medical plan of care. Services: Services provided to patient in accordance with Admission requirements found in Title 42 Section 412.3 of the Code of Federal Regulations Patient History Date of Service: 02/11/20 Reason for admission: Generalize weakness and fatigue History of Present Illness: 74-year-old gentleman with a history of hypertension, recent severe anemia secondary to GI bleed and recently diagnosed with H. pylori peptic ulcer at [facility], about 3 weeks ago, presented emergency department with a complaint of easy fatigability, generalized weakness and shortness of breath. Patient also reports red rashes all over his body and diarrhea. He denies any bloody stools or melena. He stated he completed 2 weeks of therapy for the H. pylori infection. Blood work in the ED shows leukopenia and thrombocytopenia. Hemoglobin is at 9.9. Blood chemistry shows evidence of acute renal failure, mild hyperkalemia and mild hyponatremia. Patient denies any fever. He is admitted for further management. Allergies No Known Allergies Allergy (Unverified 03/29/16 21:07) - Past Medical/Surgical History -: Hypertension -: H. pylori peptic ulcer -: History of GI bleed -: Endoscopy - Family History Father -: Hypertension - Social History Smoking Status: Never smoker Alcohol use: No CD- Drugs: No Place of Residence: Home Review of Systems Other: Except as documented, all other systems reviewed and negative. Physical Examination - Physical Exam General: Alert, In no apparent distress, Oriented x3 HEENT: Mucous membr. moist/pink, Sclerae nonicteric Neck: Supple, JVD not distended, No Thyromegaly Respiratory: Clear to auscultation bilaterally, Normal air movement Cardiovascular: Regular rate/rhythm, Normal S1 S2, Edema (1+ bilateral pedal pitting edema) Capillary refill: <2 Seconds Gastrointestinal: Normal bowel sounds, Soft and benign, Non-distended, No tenderness Musculoskeletal: No tenderness Integumentary: Other (Diffuse erythematous rash) Neurological: Normal speech, Normal strength at 5/5 x4 extr, Cranial nerves 3-12 intact Lymphatics: No axilla or inguinal lymphadenopathy - Studies Laboratory Data (last 24 hrs) 02/11/20 21:26: PT 18.1 H, INR 1.55 02/11/20 21:26: WBC 1.9 L*, Hgb 9.9 L, Hct 29.7 L, Plt Count 28 L* 02/11/20 20:19: Sodium 133 L, Potassium 5.2 H, BUN 45 H, Creatinine 2.11 H, Glucose 105, Magnesium 2.9 H D, Total Bilirubin 2.1 H, AST 83 H, ALT 22, Alkaline Phosphatase 139 H 02/11/20 19:49: PT Cancelled, INR Cancelled 02/11/20 19:49: WBC Cancelled, Hgb Cancelled, Hct Cancelled, Plt Count Cancelled 02/11/20 19:49: Sodium Cancelled, Potassium Cancelled, BUN Cancelled, Creatinine Cancelled, Glucose Cancelled, Magnesium Cancelled, Total Bilirubin Cancelled, AST Cancelled, ALT Cancelled, Alkaline Phosphatase Cancelled Assessment and Plan - Problems (Diagnosis) (1) Pancytopenia Current Visit: Yes Status: Acute (2) Acute renal failure Current Visit: Yes Status: Acute (3) Elevated liver enzymes Current Visit: Yes Status: Acute (4) History of peptic ulcer disease Current Visit: Yes Status: Acute (5) Anemia Current Visit: Yes Status: Acute - Plan Admit to the medical floor. I suspect the form of autoimmune thrombocytopenia vs TTP. Obtaining peripheral blood smear. Hematology consult Obtain CT abdomen and pelvis without contrast. IV hydration. Empiric IV antibiotics. Obtain blood cultures. Monitor CBC - Advance Directives Does patient have a Living Will: No Does patient have a Durable POA for Healthcare: No
[2020-02-11 23:43] LABS: Anisocytosis 1+; Platelet Estimate DECR; Polychromasia 2+
--- OUTSIDE RECORDS SUMMARY | 2020-02-12 00:49 | XMS REPORT | Clinical Summary ---
:1945 Author Organization [facility] Address [address] [place] [address] Care Team Providers Name Role Phone Unavailable Primary Care Provider Unavailable Allergies No Known Allergies Medications Medication Sig Dispensed Refills Start Date End Date Status flecainide Take 100 mg 0 Active (TAMBOCOR) 100 MG by mouth 2 tablet (two) times daily. amLODIPine Take 5 mg by 0 Active (NORVASC) 5 MG mouth daily. tablet pantoprazole Take 1 tablet 180 tablet 0 01/19/2020 04/18/2020 Active (PROTONIX) 40 MG (40 mg total) tablet by mouth 2 (two) times daily for 90 days. pantoprazole Take 1 tablet 30 tablet 0 01/18/2020 01/18/2020 D iscontinued (PROTONIX) 40 MG (40 mg total) tablet by mouth daily for 30 days. pantoprazole Take 1 tablet 60 tablet 0 01/18/2020 01/19/2020 D iscontinued (PROTONIX) 40 MG (40 mg total) tablet by mouth 2 (two) times daily for 30 days. Active Problems Problem Noted Date Acute cystitis without hematuria 01/17/2020 Iron deficiency anemia due to chronic blood loss 01/16 Acute blood loss anemia 01/17/2020 ASHLY (acute kidney injury) 01/17/2020 GIB (gastrointestinal bleeding) 01/16/2020 Essential hypertension 01/16/2020 Encounters Date Type Specialty Care Team Description 01/17/2020 Anesthesia Event Gastroenterology Susana Zayas MD 01/17/2020 Surgery Gastroenterology David Alfred MD ENDOSCOPY,SCLER OTHERAPY 01/17/2020 Travel 01/16/2020 - Hospital Encounter Cardiology Jacquie Acute b lood loss anemia; 01/19/2020 , MD Angel Acute cystitis without hematuria; Zulay Avila ASHLY (acute kidn ey injury) (HCC); MD Enrique Essential hypertension; Gadicherla, Gastrointestina l hemorrhage with melena; Thao Acute gastric u lcer with hemorrhage MD Wong after 02/10/2019 Social History Tobacco Use Types Packs/Day Years Used Date Never Smoker Smokeless Tobacco: Never Used Alcohol Use Drinks/Week oz/Week Comments No Alcohol Habits Answer Date Recorded How often do you have a drink containing alcohol? Never 01/17/2020 How many drinks containing alcohol do you have on a typical Not asked day when you are drinking? How often do you have six or more drinks on one occasion? No t asked Sex Assigned at Date Recorded Not on file Job Start Date Occupation Industry Not on file Not on file Not on file Travel History Travel Start Travel End No recent travel history available. Last Filed Vital Signs Vital Sign Reading Time Taken Blood Pressure 122/64 01/19/2020 7:00 AM CDT Pulse 74 01/19/2020 7:00 AM CDT Temperature 36.3 C (97.3 F) 01/19/2020 7:00 AM CDT Respiratory Rate 18 01/19/2020 7:00 AM CDT Oxygen Saturation 99% 01/19/2020 7:00 AM CDT Inhaled Oxygen Concentration - - Weight 95.7 kg (210 lb 15.7 oz) 01/19/2020 7:0 0 AM CDT Height 182.9 cm (6') 01/17/2020 12:00 AM CDT Body Mass Index 28.61 01/19/2020 7:00 AM CDT Plan of Treatment Not on file Procedures Procedure Name Priority Date/Time Associated Diagnosis Comme nts REPORT OF PROCEDURE 01/20/2020 1:53 - ENDOSCOPY SCAN PM CDT RHYTHM STRIP - SCAN 01/20/2020 1:53 PM CDT TRANSFUSION SERVICE 01/19/2020 6:10 REPORT - SCAN PM CDT CBC W/PLT COUNT & Routine 01/19/2020 3:55 Result s for AUTO DIFFERENTIAL AM CDT this proce dure are in the results section. PROTHROMBIN TIME/INR Routine 01/19/2020 3:55 Res ults for AM CDT this procedure are in the results section. MAGNESIUM Routine 01/19/2020 3:55 Results for AM CDT this procedure are in the results section. BASIC METABOLIC Routine 01/19/2020 3:55 Results for PANEL (7) AM CDT this procedure are in the results section. CBC W/PLT COUNT & Routine 01/19/2020 3:55 Result s for AUTO DIFFERENTIAL AM CDT this proce dure are in the results section. PREPARE STAT 01/18/2020 11:54 Results for LEUKO-REDUCED RBC PM CDT this proce dure are in the results section. TRANSFUSION SERVICE 01/18/2020 6:00 REPORT - SCAN PM CDT VENOUS DOPPLER ARM, STAT 01/18/2020 4:00 Resu lts for RIGHT PM CDT this procedure are in the results section. CBC W/PLT COUNT & Routine 01/18/2020 4:48 Result s for AUTO DIFFERENTIAL AM CDT this proce dure are in the results section. PROTHROMBIN TIME/INR Routine 01/18/2020 4:48 Res ults for AM CDT this procedure are in the results section. MAGNESIUM Routine 01/18/2020 4:48 Results for AM CDT this procedure are in the results section. BASIC METABOLIC Routine 01/18/2020 4:48 Results for PANEL (7) AM CDT this procedure are in the results section. CBC W/PLT COUNT & Routine 01/18/2020 4:48 Result s for AUTO DIFFERENTIAL AM CDT this proce dure are in the results section. REPORT OF PROCEDURE 01/17/2020 5:18 - ENDOSCOPY URL PM CDT TISSUE EXAM AP Routine 01/17/2020 5:03 Results for PM CDT this procedure are in the results section. UPPER 01/17/2020 1:03 Gastrointestinal ENDOSCOPY,BIOPSY PM CDT hemorrhage, unspecified gastrointestinal hemorrhage type UPPER 01/17/2020 1:03 Gastrointestinal ENDOSCOPY,SCLEROTHER PM CDT hemorrhage, unspecif ied APY gastrointestinal hemorrhage type CBC W/PLT COUNT & STAT 01/17/2020 12:11 Result s for AUTO DIFFERENTIAL PM CDT this proce dure are in the results section. CBC W/PLT COUNT & STAT 01/17/2020 12:11 Result s for AUTO DIFFERENTIAL PM CDT this proce dure are in the results section. TRANSFUSE STAT 01/17/2020 8:35 LEUKO-REDUCED RED AM CDT BLOOD CELLS TRANSFUSE STAT 01/17/2020 6:06 LEUKO-REDUCED RED AM CDT BLOOD CELLS HEMOGLOBIN AND STAT 01/17/2020 5:38 Results f or HEMATOCRIT AM CDT this procedure are in the results section. HEMOGLOBIN AND STAT 01/17/2020 3:16 Results f or HEMATOCRIT AM CDT this procedure are in the results section. PROTHROMBIN TIME/INR Routine 01/17/2020 3:16 Res ults for AM CDT this procedure are in the results section. TRANSFUSE STAT 01/17/2020 2:57 LEUKO-REDUCED RED AM CDT BLOOD CELLS ABORH, MANUAL STAT 01/17/2020 1:27 Results fo r AM CDT this procedure are in the results section. HAPTOGLOBIN Routine 01/17/2020 1:26 Results for AM CDT this procedure are in the results section. FERRITIN Routine 01/17/2020 1:26 Results for AM CDT this procedure are in the results section. IRON, TIBC, % SAT. Routine 01/17/2020 1:26 Resul ts for (WITHOUT FERRITIN) AM CDT this proc edure are in the results section. VITAMIN B12 AND Routine 01/17/2020 1:26 Results for FOLATE AM CDT this procedure are in the results section. CBC W/PLT COUNT & Routine 01/17/2020 12:57 Result s for AUTO DIFFERENTIAL AM CDT this proce dure are in the results section. TYPE AND SCREEN, Routine 01/17/2020 12:57 Results for AUTOMATED AM CDT this procedure are in the results section. LACTATE Routine 01/17/2020 12:57 Results for DEHYDROGENASE (LDH) AM CDT this pro cedure are in the results section. RETICULOCYTE COUNT Routine 01/17/2020 12:57 Resul ts for AM CDT this procedure are in the results section. PT/APTT Routine 01/17/2020 12:57 Results for AM CDT this procedure are in the results section. HEPATIC FUNCTION Routine 01/17/2020 12:57 Results for PANEL AM CDT this procedure are in the results section. MAGNESIUM Routine 01/17/2020 12:57 Results for AM CDT this procedure are in the results section. BASIC METABOLIC Routine 01/17/2020 12:57 Results for PANEL (7) AM CDT this procedure are in the results section. CBC W/PLT COUNT & Routine 01/17/2020 12:57 Result s for AUTO DIFFERENTIAL AM CDT this proce dure are in the results section. SARS-COV2/RT-PCR Routine 01/17/2020 12:37 Results for ([facility] REF LABS) AM CDT this proce dure are in the results section. ECG 12-LEAD Routine 01/17/2020 12:08 Results for AM CDT this procedure are in the results section. after 02/10/2019 Results EKG-SCANNED (01/20/2020 1:53 PM CDT) Narrative Performed At This result has an attachment that is no t available. RHYTHM STRIP - SCAN (01/20/2020 1:53 PM CDT) Narrative Performed At This result has an attachment that is no t available. TRANSFUSION SERVICE REPORT - SCAN (01/19/2020 6:10 PM CDT)Only the most recent of2 resultswithin the time period is included. Narrative Performed At This result has an attachment that is no t available. CBC with platelet count + automated diff (01/19/2020 3:55 AM CDT)Only the most recent of4 resultswithin the time period is included. WBC 5.6 3.5 - 10.5 K/L [facility] RBC 2.50 (L) 4.63 - 6.08 M/L [facility] Hemoglobin 7.4 (L) 13.7 - 17.5 GM/DL [facility] Hematocrit 23.1 (L) 40.1 - 51.0 % [facility] MCV 92.4 (H) 79.0 - 92.2 fL [facility] MCH 29.6 25.7 - 32.2 pg [facility] MCHC 32.0 (L) 32.3 - 36.5 GM/DL [facility] RDW 16.9 (H) 11.6 - 14.4 % [facility] Platelets 156 150 - 450 K/CU MM [facility] MPV 11.9 9.4 - 12.4 fL [facility] nRBC 0 0 - 0 /100 WBC [facility] % Neutros 73 % [facility] % Lymphs 13 % [facility] % Monos 9 % [facility] % Eos 2 % [facility] % Baso 0 % [facility] # Neutros 4.11 1.78 - 5.38 K/L [facility] # Lymphs 0.74 (L) 1.32 - 3.57 K/L [facility] # Monos 0.53 0.30 - 0.82 K/L [facility] # Eos 0.12 0.04 - 0.54 K/L [facility] # Baso 0.02 0.01 - 0.08 K/L [facility] Immature Granulocytes-Relative 2 (H) 0 - 1 % C HI [facility] Specimen Blood Performing Organization Address City/[facility] Phone Number [address] [address] [place] Prothrombin time/INR (01/19/2020 3:55 AM CDT)Only the most recent of3 results within the time period is included. Protime 15.3 (H) 11.9 - 14.2 seconds [facility] INR 1.2 <=5.9 [facility] Specimen Blood Narrative Performed At Effective 12/31/2018: PT Reference Range [facility] Change New: 11.9-14.2Previous: 11.7-14.7 RECOMMENDED COUMADIN/WARFARIN INR THERAPY RANGES STANDARD DOSE: 2.0-3.0Includes: PROPHYLAXIS for venous thrombosis, systemic embolization; TREATMENT for venous thrombosis and/or pulmonary embolus. HIGH RISK: Target INR is 2.5-3.5 for patients wiht mechanical heart valves. Performing Organization Address City/[facility] Hospitalcode Phone Number [address] [address] C[place] Magnesium (01/19/2020 3:55 AM CDT)Only the most recent of3 resultswithin the time period is included. Magnesium 2.2 1.6 - 2.6 mg/dL [facility] Specimen Blood Narrative Performed At Carburetor Rebuilder ID - AYAZ Horne [facility] Performing Organization Address City/[facility]/Zipcode Phone Number [address] [address] C[place] Basic Metabolic Panel (01/19/2020 3:55 AM CDT)Only the most recent of3 results within the time period is included. Sodium 135 (L) 136 - 145 meq/L [facility] Potassium 3.5 3.5 - 5.1 meq/L [facility] Chloride 104 98 - 107 meq/L [facility] CO2 24 22 - 29 meq/L [facility] BUN 20 7 - 21 mg/dL [facility] Creatinine 0.78 0.57 - 1.25 mg/dL [facility] Glucose 99 70 - 105 mg/dL [facility] Calcium 7.7 (L) 8.4 - 10.2 mg/dL [facility] EGFR 118Comment: ESTIMATED GFR IS mL/min/1.73 sq m [facility] NOT ACCURATE [facility] [place] CLEARANCE IN PREDICTING GLOMERULAR FILTRATION RATE. ESTIMATED GFR IS NOT APPLICABLE FOR DIALYSIS PATIENTS. Specimen Blood Narrative Performed At Carburetor Rebuilder ID - AYAZ Horne [facility] Performing Organization Address [facility]/Zipcode Phone Number [address] [address] C[place] Prepare Leuko-Red RBC (01/18/2020 11:54 PM CDT) CROSSMATCH COMPATIBLE SAFETRACE TX Unit ABO B Pos SAFETRACE TX UNIT NUMBER [id number] SAFETRACE TX Status TX_TIMEINCHART SAFETRACE TX Blood Bank Product RED BLOOD CELLS SAFETRACE TX PRODUCT CODE [id number] SAFETRACE TX CROSSMATCH COMPATIBLE SAFETRACE TX Unit ABO B Pos SAFETRACE TX UNIT NUMBER [id number] SAFETRACE TX Status TX_TIMEINCHART SAFETRACE TX Blood Bank Product RED BLOOD CELLS SAFETRACE TX PRODUCT CODE [id number] SAFETRACE TX CROSSMATCH COMPATIBLE SAFETRACE TX Unit ABO B Pos SAFETRACE TX UNIT NUMBER [id number] SAFETRACE TX Status TX_TIMEINCHART SAFETRACE TX Blood Bank Product RED BLOOD CELLS SAFETRACE TX PRODUCT CODE [id number] SAFETRACE TX Specimen Other Performing Organization Address City/State/Zipcode Phone Number SAFETRACE [place] Venous doppler arm, right (01/18/2020 4:00 PM CDT) Ejection Fraction [facility] ECHO HEAR TLAB MKCKESSON CPACS Specimen Impressions Performed At Right Impression [facility] ECHO HEARTLAB MKCKESSON CPACS 1. There is no deep venous obstruction in the jugular, subclavian, axillary, brachial, radial or ulnar veins. 2. There is no superficial venous obstruction in the cephalic or basilic veins. Conclusions Summary Venous duplex imaging and compression of the right upper extremity were performed. The veins were adequately visualized. The right venous system was patent and compressible with no evidence of thrombus. Signature Velocities are measured in cm/s ; Diameters are measured in cm Narrative Performed At PV LAB - Upper Extremities Veins [facility] ECHO HEARTLAB MKCKESSON CPACS Demographics Patient NameLEDET, RICHARDDate of Study 01/18/2020 74 Visit [id number] Male of 1945 Referring Thao Baker Room Number [id number] Physician [employer] BEBA Mantilla MD Procedure Type of Study: Veins: Upper Extremities Veins, VENOUS DOPPLER ARM, RIGHT. Indications for Study:Pain and Swelling. Patient Status:STAT. Study Location:Vascular Lab. Technical Quality:Adequate visualization . Risk Factors History of Disease + + + + !Diagnosis !Date!Comments ! + + + + !History/Risk Factors: !01/18/2020!ASHLY, HTN, History of fall 2 days ago! + + + + Procedure Note Interface, External Ris In - 01/19/2020 11:48 AM CDT PV LAB - Upper Extremities Veins Demographics Patient Name HOANG CUEVAS Geoffrey e of Study 01/18/2020 Age 74 Visit Number [id number] Gen varsha Male Accession Number [id number] Geoffrey e of 1945 Referring Thao Samuel Rahmano m Number [id number] Physician [employer] Manager Wyatt Gonzalez Int erpreting BEBA Portillo MD Procedure Type of Study: Veins: Upper Extremities Veins, VENOUS DOPPLER ARM, RIGHT. Indications for Study:Pain and Swelling. Patient Status:STAT. Study Location:Vascular Lab. Technical Quality:Adequate visualization . Risk Factors History of Disease + + +----- + !Diagnosis !Date !Comme nts ! + + +----- + !History/Risk Factors: !01/18/2020!ASHLY, HTN, History of fall 2 days ago ! + + +----- + Impressions Right Impression 1. There is no deep venous obstruction i n the jugular, subclavian, axillary, brachial, radial or ulnar veins. 2. There is no superficial venous obstru ction in the cephalic or basilic veins. Conclusions Summary Venous duplex imaging and compression o f the right upper extremity were performed. The veins were adequately vi sualized. The right venous system was patent and compressible with no rand dence of thrombus. Signature Velocities are measured in cm/s ; Diamet ers are measured in cm Performing Organization Address City/State/Zipcode Phone Number [facility] REPORT OF PROCEDURE - ENDOSCOPY URL (01/17/2020 5:18 PM CDT) Narrative Performed At This result has an attachment that is no t available. Tissue Exam (01/17/2020 5:03 PM CDT) Case Report Surgical Pathology Report Case: [id number] [facility] Authorizing Provider:David Ozuna, Collected: 01/17/2020 05:03 PM [facility] Ordering Location: [address] Received:01/18/2020 09:09 AM Service Pathologist: Wayne Mcadams MD Specimen:Biopsy, Gas tric, Random gastric bx ADDENDUM Immunostain for helicobacter [facility]ep[facility] performed on block A1 is [facility] POSITIVE. DIAGNOSIS PART A RANDOM GASTRIC BIOPSY: [facility] ANTRAL AND OXYNTIC MUCOSA WITH ACTIVE CHRONIC GA STRITIS. [facility] NEGATIVE FOR INTESTINAL METAPLASIA, DYSPLASIA, O R INVASIVE CARCINOMA. WARTHIN STARRY STAIN FOR HELICOBACTER IS NEGATIV E. IMMUNOSTAIN FOR HELICOBACTER IS PENDING, ADDENDU M REPORT TO FOLLOW. Signing Pathologist Direct Phone Line: [phone] CPT Code(s) 04524, 05937, 74470 [facility]ENTERPower [employer] [facility] CLINICAL HISTORY GI BLEED [facility]ural[facility] H [facility] SPECIMEN SOURCE Gastric biopsy [facility]ALSemasio [facility] GROSS DESCRIPTION Received in formalin labeled with the patient's name, accession number and "gastric biopsy" are 3 fam-pink tissue fragments measuring up to 0.3 cm in greatest dimension which are filtered and submitted in toto in A1. [facility] MARYLIN [place] ([facility])cm MICROSCOPIC DESCRIPTION PERFORMED. [facility] ER SPECIAL STUDIES The interpretation of this c ase included the use of immunohistochemistry or special stains. [facility] BLOCK A1- GRISEL PEREA, HELICOBACTER IMMUNOSTA IN. [facility] Control Slides Examined: In -house known positive controls were evaluated along with the test tissue. These control slides run alongside of the patients sample show appropriate staining. Internal posit vivien and negative controls when available are [employer] Immunohistochemistry technic al testing was performed at [facility], Pathology Laboratory where it was developed and its performance characteristics were determined. It has not be en cleared or approved by [facility] U.S. Food and Drug Administration. The FDA has determined that such clearance or approval is not necessary. The test is used for clinical purposes. It should not be regarde d as investigational or for research. This laboratory is certified under the Clinical Laboratory Improvement Amendments of 1988 (CLIA-88) as qualified to perform high complexity clinical laboratory testing. Gross assessment was [facility] performed at [place], Department of [facility] Pathology, [address] [place] [id number], Technical component was [facility] performed at [place], Department of [facility] Pathology, [address] [place] [id number], Professional component [facility] was performed at [place], Department of [facility] Pathology, [address] [place] [id number], Specimen Tissue Performing Organization Address City/State/Zipcode Phone Number [place] [phone] [place] Transfuse Leuko-Red RBC (01/17/2020 8:35 AM CDT)Only the most recent of4 resultswithin the time period is included.Hemoglobin and hematocrit (01/17/2020 5:38 AM CDT)Only the most recent of2 resultswithin the time period is included. Hemoglobin 6.2 (L) 13.7 - 17.5 GM/DL [facility] Hematocrit 19.3 (L) 40.1 - 51.0 % [facility] Specimen Blood Narrative Performed At Carburetor Rebuilder ID - [id number] [facility] Performing Organization Address [facility] Hospitalcomd Phone Number [address] [address] [place] ABORH, manual (01/17/2020 1:27 AM CDT) ABO Grouping B [facility] Rh Factor POS [facility] Specimen Blood Performing Organization Address [facility] Hospitalcomd Phone Number [address] [address] Vitamin B12 and Folate (01/17/2020 1:26 AM CDT) Vitamin B12 >2000 (H) 213 - 816 pg/mL [facility] Folate 14.20 >=7.00 ng/mL [facility] Specimen Blood Narrative Performed At Carburetor Rebuilder ID - PIAYA L [facility] Performing Organization Address [facility] Phone Number [address] [address] C[place] Iron, TIBC, % sat. (without ferritin) (01/17/2020 1:26 AM CDT) Iron 38.0 (L) 40.0 - 160.0 ug/dL [facility] TIBC 151 (L) 250 - 450 ug/dL [facility] Iron % Saturation 25 20 - 55 % [facility] Specimen Blood Narrative Performed At Carburetor Rebuilder ID - PIAYA L [facility] Performing Organization Address [facility] Hospitalcode Phone Number [address] [address] C[place] Haptoglobin (01/17/2020 1:26 AM CDT) Haptoglobin 277 (H) 14 - 258 mg/dL [facility] Specimen Blood Narrative Performed At Carburetor Rebuilder ID - MARVA Aguila [facility] Performing Organization Address [facility] Hospitalcode Phone Number [address] [address] C[place] Ferritin (01/17/2020 1:26 AM CDT) Ferritin 947.60 (H) 5.00 - 275.00 ng/mL [facility] Specimen Blood Narrative Performed At Carburetor Rebuilder ID - MARVA L [facility] Performing Organization Address [facility] Hospitalcode Phone Number [address] [address] C[place] Type and screen, automated (01/17/2020 12:57 AM CDT) ABO/RH AUTOMATED (BEAKER) B POSITIVE [facility] Ab Scrn NEGATIVE [facility] Specimen Blood Performing Organization Address [facility] Hospitalcode Phone Number [address] [address] PT/aPTT (01/17/2020 12:57 AM CDT) Protime 16.5 (H) 11.9 - 14.2 seconds [facility] INR 1.4 <=5.9 [facility] PTT 31.0 22.5 - 36.0 seconds [facility] Specimen Blood Narrative Performed At Effective 12/31/2018: PT Reference Range [facility] Change New: 11.9-14.2Previous: 11.7-14.7 RECOMMENDED COUMADIN/WARFARIN INR THERAPY RANGES STANDARD DOSE: 2.0-3.0Includes: PROPHYLAXIS for venous thrombosis, systemic embolization; TREATMENT for venous thrombosis and/or pulmonary embolus. HIGH RISK: Target INR is 2.5-3.5 for patients wiht mechanical heart valves. Performing Organization Address City/[facility]/Zipcode Phone Number [address] [phone] C[place] Reticulocyte count (01/17/2020 12:57 AM CDT) % Retic 4.9 (H) 0.5 - 1.8 % [facility] Specimen Blood Narrative Performed At Carburetor Rebuilder ID - [id number] [facility] Performing Organization Address [facility]/Zipcode Phone Number [address] [address] C[place] Lactate dehydrogenase (LDH) (01/17/2020 12:57 AM CDT) LDH 484 (H) 125 - 220 U/L [facility] Specimen Blood Narrative Performed At Carburetor Rebuilder ID - PIAYA L [facility] [facility] Performing Organization Address [facility] Phone Number [address] [address] [place] Hepatic function panel (01/17/2020 12:57 AM CDT) Protein, Total 5.8 (L) 6.0 - 8.3 gm/dL [facility] Albumin 2.7 (L) 3.5 - 5.0 g/dL [facility] Total Bilirubin 0.6 0.2 - 1.2 mg/dL [facility] Bilirubin, Direct 0.4 0.1 - 0.5 mg/dL [facility] Alkaline Phosphatase 71 40 - 150 U/L [facility] AST 40 (H) 5 - 34 U/L [facility] ALT 26 6 - 55 U/L [facility] Specimen Blood Narrative Performed At [employer]builder ID - MARVA Aguila [facility] Performing Organization Address City/State/Zipcode Phone Number [facility] [address] [place] [address] CENTER SARS-CoV2/RT-PCR (Asymptomatic ONLY) (01/17/2020 12:37 AM CDT) SARS-COV2/RT-PCR Not Detected Not Detected, Negative [facility] SARS-COV-2 PERFORMING LAB [facility] Specimen Other Narrative Performed At Negative results do not preclude SARS-CoV-2 [facility] infection and should not be used as the sole basis for patient management decisions. Negative results must be combined with clinical observations, patient history, and epidemiological information. A false negative result may occur if a specimen is improperly collected, transported or handled. The limit of detection for this assay is 250 copies/mL. This SARS CoV-2 test is a rapid, real-time RT-PCR test intended for the qualitative detection of nucleic acid from SARS-CoV-2 in a nasopharyngeal swab specimen collected from individuals suspected of COVID-19 by their healthcare provider. This test has not been Food and Drug Administration (FDA) cleared or approved and has been authorized by FDA under an Emergency Use Authorization (EUA). This EUA will be effective until the declaration that circumstances exist justifying the authorization of the emergency use of in vitro diagnostic tests for detection and/or diagnosis of COVID-19 is terminated under Section 564(b)(2) of the Act or the EUA is revoked under Section 564(g) of the Act. Fact Sheet for Healthcare Providers: https://www.[employer]/Documents/Xpert%20Xpre ss%20SARS%20CoV-2/Fact%20Sheets/3023802%20SAR S-COV-2%20HEALTHCARE%20PROVIDERS%20FACT%20SHEE T.pdf Fact Sheet for Healthcare Patients: https://www.[employer]/Documents/Xpert%20Xpre ss%20SARS%20CoV-2/Fact%20Sheets/3023801%20SAR S-COV-2%20PATIENT%20FACT%20SHEET.pdf Performing Laboratory: [facility] [address] [facility] [facility] [place] [address] Performing Organization Address City/State/Zipcode Phone Number [facility] MED[facility] [address] [place] [address] CENTER ECG 12 lead (01/17/2020 12:08 AM CDT) Specimen Narrative Performed At Ventricular Rate 84 BPM GE MUSE Atrial Rate 84 BPM P-R Interval 228 ms QRS Duration 86 ms Q-T Interval 414 ms QTC Calculation(Bazett) 489 ms P [place] 89 degrees R [place] 40 degrees T [place] 35 degrees Sinus rhythm with 1st degree A-V block Nonspecific ST abnormality Prolonged QT Abnormal ECG No previous ECGs available Confirmed by MD LORENZANA YOCHAI ([id number]) on 01/18/2020 10:52:55 AM Procedure Note Interface, External Ris In - 01/18/2020 10:53 AM CDT Ventricular Rate 84 BPM Atrial Rate 84 BPM P-R Interval 228 ms QRS Duration 86 ms Q-T Interval 414 ms QTC Calculation(Bazett) 489 ms P [place] 89 degrees R [place] 40 degrees T [place] 35 degrees Sinus rhythm with 1st degree A-V block Nonspecific ST abnormality Prolonged QT Abnormal ECG No previous ECGs available Confirmed by MD LORENZANA YOCHAI ([id number]) on 01/18/2020 10:52:55 AM Performing Organization Address City/State/Zipcode Phone Number RANJAN DELCID after 02/10/2019 Insurance Payer Benefit Plan / Group Subscriber ID Type Phone A ddress [facility] UNITED MEDICARE HMO xxxxxxxxx MEDICARE MGD CARE CDC REVIEW CDC REVIEW xxxxxxxx [place] [address] Advance Directives For more information, please contact:[facility] [place], [place] [phone] Code Status Date Activated Date Inactivated Comments Full Code 01/16/2020 11:57 PM 01/19/2020 11:53 AM This code status was determined by: Patient
--- OUTSIDE RECORDS SUMMARY | 2020-02-12 00:51 | XMS REPORT | Continuity of Care Document ---
:1945 Author Organization [employer] Care Team Providers Name Role Phone [employer] Unavailable Un available Problems Problem Status Onset [...] Q12H, # 180 tab, 3 Refill(s), Pharmacy: [facility] [id number] amLODIPine 5 5 mg = 1 Active 03/05/20 Medica l mg oral tab, PO, 19 Group tablet BID, # 60 tab, 11 Refill(s), Pharmacy: [facility] 808 amLODIPine 5 5 mg = 1 No Longer 08/25/19 Medi crow mg oral tab, PO, Active 19 Group tablet BID, # 60 tab, 11 Refill(s), Pharmacy: [facility] [id number] flecainide 100 mg = 1 Active 06/05/20 Medica l 100 mg oral tab, PO, 18 Group tablet Q12H, # 180 tab, 3 Refill(s), Pharmacy: [facility] 808 amLODIPine 5 5 mg = 1 Active 02/14/20 Medica l mg oral tab, PO, 18 Group tablet BID, # 30 tab, 11 Refill(s), Pharmacy: [facility] [id number] flecainide 50 50 mg = 1 Active 02/14/20 Medi crow mg oral tab, PO, 18 Group tablet Q12H, # 60 tab, 5 Refill(s), Pharmacy: [facility]08 Allergies, Adverse Reactions, Alerts No [...] Number For Provider Date Date Visit Outpatient [id number] RANDEE 04/19 [facility] Outpatient [id number] ECHO VISIT 05/09 Act [facility] Out[facility] [id number] [facility] Out[facility] [id number] [facility] [id number] [facility] [id number] [facility] [id number] OTHER 07/03 Active [facility] VISIT [facility] [id number] Wesley 07/03 07/04 Cardiology [place] /2016 [facility] Outpatient [id number] Wesley 07/03 07/04 [id number] 08/16 08/18 Cardiology Medical /2017 [facility] Outpatient [id number] RANDEE 12/25 [facility] Out[facility] [id number] Randee 12/25 12/26 Cardiology [place] /2017 [facility] Outpatient [id number] ECHO VISIT 02/[facility] [id number] [facility]13 [facility] [id number] Wesley 02/13 02/14 [facility] [place] [facility] [id number] Wesley 02/13 02/14 Cardiology [place] /2017 [facility] Outpatient [id number] RANDEE 06/05 [facility]2018 [facility] Outpatient [id number] Randee 06/05 06/06 [facility]iology [place] /2017 [facility] Outpatient [id number] ECHO VISIT 09/05 Act [facility] Outpatient [id number] RANDEE 09/05 [facility] /2019 [facility] Outpatient [id number] Wesley 09/05 09/06 [facility] [place] /2018 [facility]patient [id number] Randee 09/05 09/06 [facility] [place] /2018 [facility] Outpatient [id number] Randee 03/05 Active [facility] [place] /2019 [facility] Outpatient [id number] Randee 03/05 03/06 Cardiology [place] /2018 [facility] Outpatient [id number] Randee 09/03 Active [facility] /2020 [facility] Outpatient [id number] Randee 09/03 09/04 Cardiology [place] /2019 /2019 [facility] Outpatient [id number] Randee 03/03 Active [facility] /2020 Sant[facility] [...]
--- OUTSIDE RECORDS SUMMARY | 2020-02-12 00:55 | XMS REPORT | Continuity of Care Document ---
:1945 Author Organization [facility] t Address [address] [place] [address] Care Team Providers Name Role Phone JACQUIE Attending Clinician Unavailable Jacquie GAMBLE Attending Clinician Enrique Avila MD Attending Clinician Zuri GAMBLE, Wong Attending Clinician [phone] Chana GAMBLE, Vivian Attending Clinician Tima GAMBLE, Raymond Attending Clinician Bib Mi Attending Clinician VISIT, RETAIL PHARMACIST ECHO Attending Clinician Unavailable JACQUIE Admitting Clinician Unavailable Payers Payer Name Policy Type Policy Number Effective Date Expiration Source Date [facility] - xxxxxxxxx [facility]GD [facility] - CAREUNITED MEDICARE Medic al HMOxxxxxxxxx [place] CDC REVIEWCDC xxxxxxxx [facility] REVIEW[facility]PO [place] Medical [phone] Center Problems Condition Condition Condition Status Onset Resolution Last Treating Co mments Source Name Details Category Date Date Treatment Clinician Date Acute Acute Disease Active [facility] cystitis cystitis 6-14 [facility] - without without 00:00: Medical hematuria hematuria 00 Cent er 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 00:00: Me dical to chronic to chronic 00 Ce nter blood loss blood loss Acute Acute Disease Active [facility] blood loss blood loss 6-14 Emmie kes - anemia anemia 00:00: Medical 00 Center ASHLY (acute ASHLY (acute Disease Active [facility] kidney kidney 6-14 [facility] - injury) injury) 00:00: Medical 00 Center GIB GIB Disease Active [facility] (gastroint (gastroint 6-13 Emmie kes - estinal estinal 00:00: Medical bleeding) bleeding) 00 Cent er Essential Essential Disease Active [facility] hypertensi hypertensi 6-13 Emmie kes - on on 00:00: Medical 00 [place] 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 M emoria a 00:26:45 l (disorder) Shaun n Bradycardi a (disorder) Active Problem 09/06/2019 Medical Group Hypertensi Problem Active 2019-09-06 M emoria ve 00:26:45 l disorder, Santino systemic Hypertensi arterial ve (disorder) disorder, systemic arterial (disorder) Active Problem 09/06/2019 Medical Group Obesity Problem Active 2019-09-06 León tj (disorder) 00:26:45 l Obesity Vincent (disorder) Active Problem 09/06/2019 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 Social History Social Habit Start Date Stop Date Quantity Comments Source History [facility] Alcohol [facility] Std Drinks [facility] History [facility] Alcohol [facility] Binge [facility] Sex Assigned At [facility] History [facility] Alcohol 2020-01-17 2020-01-17 1 [facility] - Frequency 00:00:00 00:00:00 [facility] Smoking Status Start Date Stop Date Source Never smoker [facility] edical [place] Medications Ordered Filled Start Stop Current Ordering Indication Dosage Frequency Signature Comments Components Source Medication Medication Date Date Medication? Clinician (SIG) Name Name pantoprazol 2019- Yes 40mg Q.5D Take [address] [facility] 01-18 tablet (40 [facility] - (PROTONIX) 00:00: 23:59 mg total) edical 40 MG 00 :00 by mouth 2 Center tablet (two) times daily for 90 days. pantoprazol 2019- No 40mg Q.5D Take [address] [facility] 6-15 06-16 tablet (40 [facility] - (PROTONIX) 00:00: 00:00 mg total) M edical 40 MG 00 :00 by mouth 2 Center tablet (two) times daily for 30 days. pantoprazol 2020-0 2020- No 40mg QD Take [address] [facility] 615 -15 tablet (40 [facility] - (PROTONIX) 00:00: 00:00 mg total) M edical 40 MG 00 :00 by mouth Center tablet daily for 30 days. flecainide 2020-0 Yes 100mg Q.5D Take [address] (TAMBOCOR) 6-14 mg by [facility] - 100 MG 01:18: mouth 2 Medical tablet 35 (two) Center times daily. amLODIPine 2020-0 Yes 5mg QD Take [address] (NORVASC) 5 6-14 by mouth Luke s - MG tablet 01:18: daily. Medica l 35 Center flecainide 2019-0 Yes 100 mg = 1 M emoria 100 mg oral 8-01 tab, PO, l tablet 15:37: Q12H, # Santino 09 180 tab, 3 Refill(s), Pharmacy: [facility] amLODIPine 2018-0 Yes 5 mg = 1 Mem oria 5 mg oral 8-01 tab, PO, l tablet 15:37: BID, # 60 Shaun n 07 tab, 11 Refill(s), Pharmacy: [facility] amLODIPine 2018-0 No 5 mg = 1 Mem oria 5 mg oral 1-21 tab, PO, l tablet 22:16: BID, # 60 Shaun n 21 tab, 11 Refill(s), Pharmacy: [facility] flecainide 2017-08 Yes 100 mg = 1 M emoria 100 mg oral 1-01 tab, PO, l tablet 16:47: Q12H, # Santino 00 180 tab, 3 Refill(s), Pharmacy: [facility] amLODIPine 2017-0 Yes 5 mg = 1 Mem oria 5 mg oral 7-12 tab, PO, l tablet 15:46: BID, # 30 Shaun n 41 tab, 11 Refill(s), Pharmacy: [facility] flecainide 2017-0 Yes 50 mg = 1 Me moria 50 mg oral 7-12 tab, PO, l tablet 15:46: Q12H, # 60 Celina nn 00 tab, 5 Refill(s), Pharmacy: [facility] Vital Signs Vital Name Observation Time Observation Value Comments Source Systolic blood 2020-01-19 07:00:00 122 mm[Hg] [facility] Diastolic blood 2020-01-19 07:00:00 64 mm[Hg] [facility] Heart rate 2020-01-19 07:00:00 74 /min [facility] Body temperature 2020-01-19 07:00:00 36.28 [facility] Respiratory rate 2020-01-19 07:00:00 18 /min [facility] Body weight Measured 2020-01-19 07:00:00 95.7 kg [facility] BMI 2020-01-19 07:00:00 28.61 kg/m2 [facility] Oxygen saturation in 2020-01-19 07:00:00 99 /min [facility] Arterial blood by Medical Ce nter Pulse oximetry Body height 2020-01-17 00:00:00 182.9 cm [facility] Systolic (mm Hg) 2019-09-03 16:13:00 León rial Santino Diastolic (mm Hg) 2019-09-03 16:13:00 Mem orial Vincent Heart Rate 2019-09-03 16:13:00 [facility] Height 2019-09-03 16:13:00 187.96 cm [facility] Weight 2019-09-03 16:13:00 [facility] BMI Calculated 2019-09-03 16:13:00 Memori al Vincent Weight 2019-03-05 14:43:00 [facility] Height 2019-03-05 14:43:00 187.96 cm [facility] BMI Calculated 2019-03-05 14:43:00 Memori al [facility] Heart Rate 2019-03-05 14:43:00 [facility] Systolic (mm Hg) 2019-03-05 14:43:00 León rial Vincent Diastolic (mm Hg) 2019-03-05 14:43:00 Mem orial Vincent Systolic (mm Hg) 2018-09-05 17:41:00 León rial Santino Diastolic (mm Hg) 2018-09-05 17:41:00 Mem orial [facility] Heart Rate 2018-09-05 17:41:00 [facility] Height 2018-09-05 17:41:00 187.96 cm [facility] Weight 2018-09-05 17:41:00 [facility] BMI Calculated 2018-09-05 17:41:00 Memori al Vincent BMI Calculated 2018-06-05 16:04:00 Memori al [facility] Height 2018-06-05 16:04:00 185.42 cm [facility] Weight 2018-06-05 16:04:00 [facility] Systolic (mm Hg) 2018-06-05 16:04:00 León rial Vincent Diastolic (mm Hg) 2018-06-05 16:04:00 Mem orial Vincent Heart Rate 2018-06-05 16:04:00 [facility] BMI Calculated 2018-02-13 15:20:00 Memori al [place] Weight 2018-02-13 15:20:00 [facility] [place] Systolic (mm Hg) 2018-02-13 15:20:00 Elón rial Vincent Diastolic (mm Hg) 2018-02-13 15:20:00 Mem orial [place] Heart Rate 2018-02-13 15:20:00 [facility] Height 2018-02-13 15:20:00 185.42 cm [facility] Height 2017-12-25 15:51:00 185.42 cm [facility] BMI Calculated 2017-12-25 15:51:00 Memori al Vincent Weight 2017-12-25 15:51:00 [facility] [place] Systolic (mm Hg) 2017-12-25 15:51:00 León rial Vincent Diastolic (mm Hg) 2017-12-25 15:51:00 Mem orial Vincent Heart Rate 2017-12-25 15:51:00 [facility] Height 2017-07-03 17:24:00 185.42 cm [facility] Weight 2017-07-03 17:24:00 [facility] Systolic (mm Hg) 2017-07-03 17:24:00 León rial Vincent Diastolic (mm Hg) 2017-07-03 17:24:00 Mem orial [place] BMI Calculated 2017-07-03 17:24:00 Memori al Vincent Heart Rate 2017-07-03 17:24:00 [facility] Procedures Procedure Date / Time Performed Performing Clinician Ismael e REPORT OF PROCEDURE - 2020-01-20 13:53:10 Provider, Default [facility] ENDOSCOPY SCAN [facility] RHYTHM STRIP - SCAN 2020-01-20 13:53:05 Provider, Default [facility] TRANSFUSION SERVICE 2020-01-19 18:10:35 Provider, Default [facility] REPORT - SCAN [facility] BASIC METABOLIC PANEL (7) 2020-01-19 03:55:00 MELISSA Dhillon I [facility] MAGNESIUM 2020-01-19 [facility]:55[facility] 2020-01-19 03:55[facility]00 [facility] CBC W/PLT COUNT & AUTO 2020-01-19 03:55:00 Jacquie [facility] S t Rebeca - DIFFERENTIAL [facility] PREPARE LEUKO-REDUCED RBC 2020-01-18 23:54:00 Jacquie [facility] TRANSFUSION SERVICE 2020-01-18 18:00:14 Provider, Default [facility] REPORT - SCAN [facility] VENOUS DOPPLER ARM, RIGHT 2020-01-18 16:00:00 Thao Keating [facility] BASIC METABOLIC PANEL (7) 2020-01-18 04:48:00 MELISSA Dhillon I [facility] MAGNESIUM 2020-01-18 04:48:00 [facility] PROT[facility]OMBIN TIME/INR 2020-01-18 04:48:00 [facility] CBC W/PLT COUNT & AUTO 2020-01-18 04:48:00 MartOdessa [facility] DI[facility] REPORT OF PROCEDURE - 2020-01-17 17:18:56 David Alfred [facility] - ENDOSCOPY URL [facility] TISSUE EXAM 2020-01-17 17:03:00 David Alfred [facility] UPPER 2020-01-17 13:03:00 David Alfred [facility] - ENDOSCOPY,SCLEROTHERAPY [facility] UPPER ENDOSCOPY,BIOPSY 2020-01-17 13:03:00 David Alfred [facility] CBC W/PLT COUNT & AUTO 2020-01-17 12:11:00 Van Cope [facility] TRANSFUSE LEUKO-REDUCED 2020-01-17 08:35:27 [facility] RED BLOOD CELLS [facility] TRANSFUSE LEUKO-REDUCED 2020-01-17 06:06:38 [facility] HEMOGLOBIN AND HEMATOCRIT 2020-01-17 05:38:00 Jacquie I [facility] PROTHROMBIN TIME/INR 2020-01-17 03:16:00 [facility] HEMOGLOBIN AND HEMATOCRIT 2020-01-17 03:16:00 Jacquie [facility] TRANSFUSE LEUKO-REDUCED 2020-01-17 02:57:49 [facility] RED [facility]LOOD CELLS [facility] ABORH, MANUAL 2020-01-17 01:27:00 Marla Berger [facility] VITAMIN B12 AND FOLATE 2020-01-17 01:26:00 [facility] IRON, TIBC, % SAT. 2020-01-17 01:26:00 [facility] 2020-01-17 01:26:00 [facility] HAPTOGLOBIN 2020-01-17 01:26:00 [facility] BASIC METABOLIC PANEL (7) 2020-01-17 00:57:00 Jacquie Madelaine [facility] MAGNESIUM 2020-01-17 00:57[facility]00 [facility]EL 2020-01-17 00:57:00 [facility] PT[facility]APTT 2020-01-17 00:57:00 Jacquie [facility] RETICULOCYTE COUNT 2020-01-17 00:57:[address] [facility] LACTATE DEHYDROGENASE 2020-01-17 00:57:[address] [facility] - ([facility]) [facility] TYPE AND SCREEN, 2020-01-17 00:57:00 ARVIN Dhillon [place] [facility] - AUTOMATED [facility] CBC W/PLT COUNT & AUTO 2020-01-17 00:57:00 ARVIN Dhillon t [facility] - DIFFERENTIAL [facility] SARS-COV2/RT-PCR ([facility] & 2020-01-17 00:37:00 Jacquie [facility] - REF LABS) [facility] ECG 12-LEAD 2020-01-17 00:08:25 [facility] Encounters Start End Encounter Admission Attending Care Care Encounter Source Date/Time Date/Time Type Type Clinicians Facility Department ID 2019-09-03 2019-09-03 [place] [id number] 10:00:00 23:59:59 Abraham Mccartney 16 2019-03-05 2019-03-05 [place] [id number] 10:00:00 23:59:59 Abraham Mccartney 15 2018-09-05 2018-09-05 Outpatient [facility]ot, [facility] [id number] 11:15:00 23:59:59 Abraham Mccartney 14 2018-09-05 2018-09-05 [place] [id number] 11:15:00 23:59:59 Abraham Mccartney 14 2018-09-05 2018-09-05 Outpatient VISIT, MG MG [id number] 10:45:00 23:59:59 NURSE RETAIL PHARMACIST 13 ECHO 2018-09-05 2018-09-05 Outpatient VISIT, MG [facility] [id number] 10:45:00 23:59:59 NURSE RETAIL PHARMACIST 13 ECHO 2018-06-05 2018-06-05 Outpatient Hiwot, [facility] [id number] 11:00:00 23:59:59 Abraham Mccartney 12 2018-02-13 2018-02-13 [place] [id number] 10:45:00 23:59:59 Abraham Bib 11 2018-02-13 2018-02-13 Outpatient VISIT, [facility] [id number] 10:00:00 23:59:59 NURSE RETAIL PHARMACIST 10 ECHO 2017-12-25 2017-12-25 Outpatient NEO Mi [facility] [id number] 11:00:00 23:59:59 Abraham Bib 09 2017-08-16 2017-08-17 Outpatient [facility] [id number] 15:30:00 23:59:59 00 2017-08-16 2017-08-17 Outpatient [facility] [id number] 15:30:00 23:59:59 00 2017-07-03 2017-07-03 Outpatient Hiwot [facility] [id number] 12:00:00 23:59:59 Abraham Bib 08 2017-07-03 2017-07-03 Outpatient Hiwot [facility] [id number] 11:30:00 23:59:59 Abraham Bib 07 Results Test Description Test Time Test Comments Results Result Comments Source Tissue Exam 2020-01-20 10:48:00 Test Item Value Reference Range Interpretation Comme nts Case Report (test code = 104) Surgical Pathology Report Case: [id number] Authorizing Provider: David Alfred, Collected: 01/17/2020 05:03 PM Ordering Location: [address] Received: 01/18/2020 09:09 AM Service Pathologist: Wayne Mcadams MD Specimen: Biopsy, Gastric, Random gastric bx ADDENDUM (test code = 3381) r3dkvCIhJLRpmFTeRjKoVEHdCSQjd3cyUEUyzRR aXjYaRxZxXtVsYqxiaIAnPPQjRxGwq9gsv755bO Hnn9owHAPxVqU1wBPmHYCahXFiR671z7vuo3klh sVmlAS5OTKmFAO8YGotiqWblfX8FJreiYDlFsQ7 ORnneyNtGLeqvoAhjoYzGpi3GPJqO295HGG4fCy io7jaKUS7MCHyWSVqOgUdMf8zgEOeN076CTIuCE GYENTavAg9ZCLwxdRebnQesLAVs347I168v8evO JBzskFsgUlGykdgn9lxG807UFCzdGToilYcKnEc TLEpdZSizRK6XPLmLW8wqssbPLqcKYanDKRnylH 2HASajDKmP0LcJEDzNM1xiubyUCP3WWujPSAnCC H1NiAkCTAto6Nlbgd8BzFzph8gsn09YKC5j0Bii VylWBV8DJQ7CpBjMl3nfFOvMVNxUU6tTqExaUQv LCAlae70hYitJJiucmCnoL5zAtEaGGNckYGfXOV zUE9xcEMlPDMcqL2ximakNLDsZxEskvewFLQekC zgskSiSj7szVyeJNS6ZIueN8pqrS4sFmK0QLznA 5qmjH3fWKa9VGbimOL4IBPvxY1aRB6nbxuqm8qf UUrcMPjhZGUttzF2vuE9MRBglMYgO0PuiH9hSRC rYC9uqgkuh7xkVQV0WJuxOMWuILV0LnVmEUMma0 Rnvsw6VwFju8VwtIMdFBphC95pb110VCMrvhIgI 7pjbTGhklrbvYUtfshsAHlpriP5EHVaKKMgRZkm XGYwXGZzMjBcbGFuZzEwMzNcaGljaFxmMFxkYmN fFPXrVZnnD8htBpXvFsVjCHFRhU33fn1hcVXbhg Eds3GblBGkiARzFyQinEOtGPGclaSkie8nGXDis mRhxG4xhlLNXFFcbrZGM0HGRVuOVE0ryYVuxD== DIAGNOSIS (test code = 3220) o2mgmYMpJFUuu8oiUIUizWZuVwOrNtAxIhRuNp p alQZjOGptvcRuXBhyp8HsT9JkEpSyANmoeuRgIR HgHvjhcamsLZRhHAH1wgRwBLMmBRhcQWOwXPdoF d8tfRFlpNwsUnFzGORie4vbrzUYbpbmjKf9w8fw KVGlJkU3aPKnKXabX0xsgcDfrUNeDUKxFEi7lB8 9BFFinY2unZWpYUskdyZiJrP0HWatSHMjTxP2BB KafKXkIYNsI5aiKKPkLZcxMLNdCBadzMFrSJM8s Aaap4X6yCGezQTyzYzgMhIeCjWlGZRDb0DqTLg2 yNspY1UhZEZhFiD6mNXmSZItHDtnWGUqGPDqcfW 8tL06QHodcvP9yUYcr4Qyk14wj792bV5rtWBnSM U6FJVrDPYelUHsZIUxWNG5YXVeoJYbZ5s0KjZny YHjW1M4WzRxuZAbH8U0RsRzuOClU9D7EqRtwKNa LFMhsVAuNu7qpTFcsZFnma1bde63FLP3g5UkrBm mBBI1CCO0RcDdHw1zqEStEWBaUA5xWvCdfPUxZZ Xwpj21yTmmQMkhpuGxrL2pExReNWBobADkBKIjN O6kvZXcBOTghB8fsfnfAVVvLhViykhnRPPhgStk qsDlXk5mbAczRWY5LCbqY3maiX8uSvR6DNunJ5h czR1kLGr2GMditBV1BYAobE8lDQ7fgsqvq7pwIg UmSK7uepqic5nsOlPcLL1ddtf5x0upDoFpKH2kd iywz3jmCtYtGJtgPSUdonzmLSBhv6BxcjmfYADm o1XxL4TsgWxsX43aoNlcQ21zOGZyzXqddK2obPo wvK2mAkGoViBuJVktkKbfeRYmhpjtDOeiplMlDZ ootlbjURZzFKtdK6dkAfGpVJAvpNumCDuxr1BeB GYxXGZzMjAgUEFSVCBBIFJBTkRPTSBHQVNUUklD KVYCK4IJDRldbEJbGCMRZOXYBMHBLsQnZ8uFCoQ TMuIUHZUVI5ErG5eNOTWPZ5KPFhIhX6ySR99STk JFSMCKOcwQXKLbYLOuljGRQNwWQOdDAQAMI0AqR N7VYSNYKN7ZUWUDKPCWYEtTW0xTGOXTKTUVVODA BVYgYM2GYFkOKdNBBHOTXCCPNlVPDd6ASG6dkDP cTHcGPzFETV8vW3IHYqPNZCOZOUoYBLYSTcOFIU wMV87TUKQDNYDvUMRlCkDBXOPHWfLbPZLemdLEQ U7ZCx6FDFVOBrIDS3AaOGFZEQAEVoWWECKQUGpS HXJQTzRGZicsAHONKOOYUYDNXLRLEP7PJAVFUpI VB5yOK1iyETFjni01ZKL3UvIat9J3PPU4HWNgMH Kib4hnZFRqtWTrNpZjAxSoNeKoQlogdCGnEVYqP tWih7mth098eOMko6zoDCPnTfH6aJUyIPJbeKLu L461XFKnYJfps0znj1OpIWQlaMKsp8M3WYYXhzi tvGt7yMpjC34vt6Q4TaesS3hqYULrFLXeE6GuKE 4tOWZbCer9DBA6BAG0KDBfTZTfT3MbYG3wUJRrx WGkGOj6m2qvrDfbCEBgZSU3v8vwYMpkemIfIZ7a gs0buLz6d7qovdZfAHYdMDRdnEWXWYKzI8CbkAl rVv1rfVx6mJsbDiaxYFY2Nuj7TU4aey60esu4bE kuVZHvlrzbVoL0BUppAYFlrmfoEUu6SSpvIKHlw DG0QGFggKCxQ1SaWILrQQ8aitz5OHE0RVsoOUYb TgN3LVMisZXjYFAjlDjhVGlyz401AVN6HyPeII0 rP0Eqc9E1hX8yaMKcMMCxoUXkQpVeCHMuqa2icX XaZVraw1RdBRO5sbP2hORjoORhNGHqHnF6NQevY M8xwk58ESTxKSI2lh9ehTVtdAcriuLclNJiBUay Y4SfPLLeu500TWBqH0OxWDGpi5D0lpGkZwSuSME maEQ4tjT1CGMvBM5obslvt2dmWWdiRQxtMJLlfd O1yaH6YYPnzGGeK7BbbP5zSNWwJK6cshujk0dxM FI1LSbyAVRdREN6WsHkSWNoz4Hkmho9BkXdi9Eh sWKcVJstP65ns389CVJromQjU7slnTMwswglsXS oxdvtOYyczjR9KGBfTGcbeqtdIFNeMZquJ0xjNt YcOPNaiGvpUVrtd2KhRIXcTMAwDwXiiCIoQQLxU cc9CBStcTHuFPDmKfSeK9dkjporMyDKOXXny2mo T2bwbFRVhJJrH2QfDYbtefXhRMvaMAduAHPyJUS 4FJ25OKvkUYTjss21 CPT Code(s) (test code = 3357) v2cwtILfLJIeuYZaMjBuCTMyDNEag0lpARXl bGF xQpCgUnGxJeKmVvyhgJKiAUYyMdVrl7qoz324yT Sdk7maMFKlUtF3lWKtISYgeCBvT646v9syf7zng vImkAO5HCAsHPX0JVkostAkpzB4BXtqlDFdZwB7 AIuxelOzAAfhbwWljpYkMmv9YHDxB044IZK6qJq vd2pkPKL8DDStPSAjHlCxYi7pmYFxN692RWGkTL ZAIKNorUo3ZSWfhbEezcBxhAHPy640B061r6ydO XAmykEbmQgSpsbsx6wuJ116NZCcgDFwpxPcDxOp BVNvrMZmqTW9EMVfZT8mrwwbJyMsKZ6iaeczLjA lTZ0pkzr9IpIsBK6gvopxAuDwNKhzTXVsvhhyNJ Jxp9FgiiwlOK1lZ4Pwp2Y0xO4cmAGhRCSiuKZpZ hHqQVSnei6zdUPcGNgwl1PtIHB4khE6lMKcwTOq PYFjXI91Ctnow3CxMafmWNA4SGVcqdHki9Ifb7b zHbMpcnMsQ7cgA6WvVCJdQVQdIVWpUeGuxvWsm2 Mjy7HgwLZbqVu3x1znXKMyYLMkwTyhx2nfMYF0A WMnF0Q1cCVvt8voRAjeURNwdMN1fyuxBSlgQQWd mtQ7otxpAXztQOJztLX8dvbjBZcaCTQgDjW8zlm bTDkhZRXeFDJ3YScxl725ECU3YMmcJxipVGqiAL BnbmNvbnRccGduZGVjXHBsYWluXHBsYWluXGYwX YIzBsJgmZjqrAghvL1yRyLbMrAyOCrkAR0mEXRa D9npyCDhKBIbEKTdN8weShOmpD1wtUguXArjoxA nEYp2YfS4LBS8HWCgPspgGOojJVChiMTalR== CLINICAL HISTORY (test code = 3356) w2ozxYKnCHHvrUKcZwHvOOZiMMXox9p cZGVmbGF fUzYfCfPqVgWrBglrsERtIKQaQxOxt9gyq118cS Hex4imTQClPvP6iADcHWItyLVtM691SNOxQXiap 2bfl9CkAXZtxYFud8U9NCRMbaovkLn1cAkrL04m g1L9RzmpV9peZSDaQFFoZ0LoAR0gSESfSzu0CJL 7ZHZ1WTLjIAPfX6EcPF4wOUJpoTBkIWj0w3fhbI hnFYNxHND7j1kiSKllwgEjEG1vqg9oqGh9o7tks lNlJHAdBVMjqSGPAWUrL3ZxjMrsTo1cmBh8jEhl LgltXQV4Uwg9KT9uii38ure5tMtbEIJmcvlrDtG 4JVdkJWGennkdVCu8STflILJcvPsiBJujRWCett vwLScjFCMjuBrcBAvbKCNvAieoVXcpKNPoKAN3B Gfsf685UZP6IWnej6qyc6tzoOQlGgs4QTUxDxQa XdpdOXsir1Cip9koEWBmdt4nGCB8mZGcyGjlb6P 5zCLgLKLioFFicbRxMPXxYiL5YDhqCA2mlq52LV TiGUM8gm3glTFoaXshkyQmmGRsMUkqS8IhGTVhs 635FZVoC9JvMIElt4I2twAiLuMrYUNnjDB3piG9 ZRDkDOv6kWNltdB5tcQnoXJlK9focO97TdYdpJF dG8NncD17LtFidHYeK1XudF86DvUwzGWyS1RbyY 39MlJthTBwSVIbhCQaHr3owKWrzYJph1FjdVZnK MaaY16vu576COMgbvOaI0sigNQlcdhaaCZakvap HOsxsfH0YPg0ocJbgpoixYeqlRKkokjgMCyvmiT sQIipzxplSHFuAKvrU4pyWwBkFWAxmDdtRQgff3 XdYNAiDZTrDtNiW3ryDbdUWFWocPXhlE== SPECIMEN SOURCE (test code = 3377) u6pimAJnWQAcsQUxXoTjGQBzNZHoh0yx ZGVmbGF cXoAtMcMtYuNdKvaydNMrZNZoJwXcd8zof180vR Rrw2gcQWWdUkW2xDVvHQQxjFSeS334g5fyl1xkl fZdbVY9WFHtCAY2HGrukcKloyX6TOivdNBmVmG6 QWvltmZjCPhhchTkmhKzGhz7VDPqO740VPC3tUr jh0rcTSI9VQKeMVOzWzNbTd0ohMQiF595LMSzYA JJIJJxsEd5QCPllcEfiqBqkZDXn745X895i7ihH GKvnoMnvSjAbrvud2gmU095IRBpgILyavXtQeLg AHIncTPsaYC9RFNuHQ6yjhpnPwSkFN6mpwuhZcM xUT3bspr6YrUlYX5cbtbvWfLcELjwXWGvrfhmTF Ust2JaritiXN2yP5Xww6R4uA1ojRGqFATlvFVzO oEdVNCjtq4apKIgTPjlo8QvTYF8mkT3eDQwoRFh GWPeFX55Ssyjy2ZcEfqkLEI8APRbbbXsp9Ndv1f yLkQxbaGvV3pdH4YbQVElHJAxKLWxXbHtamNct6 Vqg7KquJZkxVh5w9opYIDdRYVneAyaw5jzUIE4H AHgS3L5jYWqg9jxDGsbDYKefGY8novoGQusGHBz aaJ4hsizVKdkBVJsqEO0biqfNTfeBUFtNbE2oxb qGFbpHSFeRCP9PPxur864HDI8JDyhVmfuWVlpOP BnbmNvbnRccGduZGVjXHBsYWluXHBsYWluXGYwX HWlLbFmwNjjsVpijL0sIyPsYuOhTFnfOU1tGIWj Z9ehpCHmXOZvXMMiS1jcAfTnnS1jhMksPIwnhvB rTUvzf5AabPUoDmcojQH7OZFqrd6= GROSS DESCRIPTION (test code = 3366) o8nveAQeOXMrtJUkLhRfQMPnFUBqy1 lcZGVmbGF fHvHuZpHkAoZxPocnbEHrHFYcPyAqx7odv085uD Ycl0szMBWxMxN3hRYkAQVovSKyN703e4erf1jfp pZleMG3KOUfHIX2INzihjEvyjW1GEyklIRkPnQ1 LSsrohTbGCojioZuzqFiIje1RXZkK645JYM4zXy kc0nvFFF7XRSiWSAiQwDpFq7doAJlN660SLHdCO BVCZMxdEo9WWXktlZfioRouDSIx528O672g3yrW QNgjzVfvDsXkfpev6hmR717LGZtqEEyqaXxNwEh HFXulSNxmET2JVVwGE2ynfncGmLrCC2ximdqLxV fHN8ddwz1DmWsPN4nnajiQvWzGMmoNXSsjwcrDM Ean6XzcyhsNA4kX1Mnz4R7oR9nkEPdIITqsQIiU eAjCPKbvu9lhRKlDYbcs9CqIIR4mqS9bYUpuIRq HOMbPQ33Khsxi7DmAkgcHBZ0CYWuesIee7Wyb4l pBhVoyfRlX4lwV2LhXNKjZPJuDJRsLxDetiZio9 Ygg4QndYMbeQe3k7epUVRiPTZshElwb0pzBGX8J BCtL9P2gCCqo0lrPFqfPKEtkOK6awydPPqgJTEg arL5kzleKHxtIIIdjCV0rfaoXVrtZLHsWwD9vdn yILgjJKMfZEM3HZkph883VOV5FChzKkgaIOtpWS BnbmNvbnRccGduZGVjXHBsYWluXHBsYWluXGYwX YCqHwSljMeqcQjwlP8hIzCuPzJlSLryPX6mHDBg G8zduSQsUPOoZNUkL2tyMoJbaT1zpYcnROhdzsG aKSSrQ9EtujGvBUzaVOXpfc5grXjiALzuGbJtEX Plq0j2rIW5yBXyjML9aRYvvMowAB9sqHEmAYUbQ 5Ykh3nwanOxmB7kESDtIE3rWQInXDM4okzkKBBf u8GvmFOjFIVhVLWrsYUnXOJbhyzpxBric6IyFLZ tREvlXZ27uaAeJDGfzKThjxbnoMDmeW5qVQ9pPF WsPJjhISjbYDP7TLS6ISKgpLIuz1hirzT3fLzjp YEhwrQhObusuTCsPGMuWK5rUEF0Bz7zxJNyACVo ffS7v5WsHWbgGNPtEgmxTAAywBAkAWGbiXLbQXZ iE1RpoRjcswdlAKXwCKJYZ1TvC90ljQZwkX== MICROSCOPIC DESCRIPTION (test code = q0gtgBDwQROerCVpWhDoXDXlKTQaj0 lcZGVmLake [facility] 3378) pIoLaHwVdUbKkCqnhcFLfPOQfXmKnj1aiq042vE Nzn3jmHJJrWhH9rCUbSXRjeNEjJ475g0lad0hhv vSiuJR1KPQlMEP0BUloibFzmdG5HPtkdXPfAnS6 HWqrxhGyDIqzcsKynmAcQrr3AHTuI316HTD6mLw le7ghFYV7WDHiKKYwRnJaRa0hyRAnB826PSSqUP MKVPHblQv5OQDlupZcyqYbmTXOk867D994w3odO BVfowAkcVhYoxsat9owE146LUQsnWAsetGlJhDz CETlpNSdlIK8OQOxOY7fhnzjUiObUL2yesfyGmQ aCZ0mmrp1RyCkMK1xdcocTvWqSXieENEhvatwEX Nfm8VojhkmCS9qJ1Pbn5Q5lU5lzXTyYBUyvCNrG hYpUFUcxa0tpNCfRMskf3CgXYG1dxF5oCTgdNYv GGTiJH25Actwp0CrIrzyLIG8FFCtilVek8Pyd8f qXfJlohXoM5nxZ9OpUDVzBYGtSKTdMpSzgiUtb7 Apw1QwbGUvrVy9w2pwIMAnNYHnkRbwv8dfKMQ3F ICnX9A5qYRdn2dtELvdGQSqdXQ5mexkRRfpCOCv uvT2tvsbNGamCTQwfID5nlybXUbqHIJgSxU2umf tPMfgLSKlPAF4IGbmj646DGT3NOnyIhooVDknZS BnbmNvbnRccGduZGVjXHBsYWluXHBsYWluXGYwX UWnFtEkmOxpyGasaO9lViQdBcKlQCygQM1jBTEo U7vulWGpBJPmPTXkQ4pqDkJzhH1heLjmISavssF aDACHGcVGFh7GTB7qoGHwoP== SPECIAL STUDIES (test code = 3376) y4rseHByAWEcsHTzYkAsMJHjGJYnc4je ZGVmbGF qJbFbGlVtQwAeDrcpcAJwEZIrXdCle1mlv524sG Kzz9eeVNAfKoC0aVHpUXSouSNxT452RLMxYGqek 8ymk3IzAKOccLCtg6I8YYAIJApbZhUaH592TFPp TQmps0hwa1DaOSRsdHPlo5H4ORISbbskrEs2jEo vS44ul7D9ZkrbG2fuPIJzTVEbT2NwRX4cCYZyUa i4TPU4JQO8JJKsJRFgP5KkCQ7zUNKpyMOzVIk2g 8afxYphUNQgJKO0x5acFGcoqyK2XE7tuk2ovTk1 e5qwdzUfVXXbISHsyKCFZGYzL3WwxFxjPf8rkAk 6p4uxJhabyzF1eXCbHmYgDxOeYDjwpZCkdurnAC LlBKD5mRSHJTy4V121n1vrDAFlliCbjXfIwlrkf 8rpH014LGGyuUTubtMxGxTkOJHzlFWcbNL2EGXl NG6joggtZaBbGH3kbvouOnBtPN7ipey3FtZmIO5 gxoojPtUtBLfgHZGufdipWJQrq3EpwitnCU5gE3 Tfg9V0jI1neIFqGIYreSDhDfWuCAHvjk9rrQNuX JvkSYB3ZEAdfgIgz9Ehk1zgOgGfojFvC0eaV1Jq OCFdCTTeEGScCtYkvzWmq6Nkg9DulIPllZr6t4k eOYIyRGThdPrgc0qsMQO3ROTkZ9X1cNEqn8hvJQ xcDLAntGJ4zxbcIIxgCSVvllK6ffwwAJrrPLVmd BV6xqyfZQpbQJJrYuZ2hjoaCIcbJAWxJDZ4RMfg c001YPQ9YQjfAyhbJNwlDJVbrvDjxkHzfYvaKYA jXHBsYWluXHBsYWluXGYwXGZzMjRccWxccGxhaW 9mZrMeWfHnHwimGP1yOCPeY0ergBBhEBMxKVWrU 9jhYpYfjL6bvSumZWvjFhWgWdXyQvDTlJLtrZ56 YLCstbB9DBJih99zu4QuhGuevrWtTVSjPOmhY4n 9EVEaEMTmUYA8y6Dwv9YwyS6yqF1jnUzcwC8ruC TpuVI3wowdr1Thz1TlI9qsoXEifPMclcEvMXLvI WluXGYxXGZzMjJcbGFuZzEwMzNcaGljaFxmMVxk JrKgKXKtAOxyI2qpOuQxJ1PdLRMnObXjmVZyV9e ccGFyXHBsYWluXGYxXGZzMjJcbGFuZzEwMzNcaG hklKecCTyrNsQfKCUxBAbjB4iyCnQxD1UxZXJeG qVmWstGN3gySUTnCCkGEzQPUM7iA8TBUaHJWWLX YMaGD72VWZUMUHTvJB5TYH5FV7ZQTI3vAQHfHWf uXGYxXGZzMjJcbGFuZzEwMzNcaGljaFxmMVxkYm RyMUDhCHaoT0qxZuHaO5DrZVQgTjDfdOClO2cce GFyXHBsYWluXGYxXGZzMjJcbGFuZzEwMzNcaGlj yGbbPZfzHrAqIQOvBNmgS6viJmDsA5GwPQYuGjS kS64gzLCfsCKQcJzsQQEpERkaiKgxPWN6ZOMGko 2bf9DpKNCucz71qgNbe0EurFc8WWLqx165sc0xl sC4XLKsODR8GCb4KPGaASJizM4oWtX3pNEoJACy LYB9ITJ9PWLsu7V9PR3pINViOUDfUJWitaXwc8b mx8mqVFOrJUR1aqTnjV2eQ1TuJMSkf9FfoQbcMW TgqIfmuiPhBKUypFHyIBJbkJ45MCDnoTRxuICrR ESfVFN3NYaclM3mAmLKncKftn6vtANof8YmiYd4 CWUaclJcbyNeQMOujgVoG78zmQCluDOnx2agscP xemEmvVJyfCHqNDAgUEK8CQh2BPQkYCstmDSdzb xrDJwrucJqFGjacsufPEGzGQimZ3lzQuUmOVImn ZtaAAbmd8EeDKHjAVDnGoetofKhEBg7thKqTRLk jxrlaIYskkchTMgnpvGvJIimxxqqAXEaCGmbT5s fFcNuLSJyqLwbSAnit4BvAZKuYVIzCicjfvBbOD SylYuxoB6qFdBwNbXaBlffDS0fSBCpQ6ueiXClY TOmIGZsA0oyVcBuvW0xlKshUGyzTtBeNuNkRwkg aXNscAfyYJXzwRabyP3iBqHlDpEzJlcxKW2gSKT qX9cgjWNgWFUuAYQeX7fxMnEtjM6suYixAUohYc HdVfDgTaINlF25yf1gxWS9z0UePN3np0LyuNS1G QSsqtwvGQvcvOHikQxbFdZ2NUPruGIjYy8zxELh VUK1QRAzzZwnfaLViL4gGSIiEAskmDAjcmclEHw rwsDbJDpckojyDZKqCTxnH8nfKpQcJUSplSfnDX qql3XvFWCyDUCyOnlhpiTzHNF9CsM4HMvbSMZxf DuoaZ3fTlUvPvChBhuvLF1mHWVrX9erpWMvQUJj MIAkG4geTsLriE0dxQpmJTvxJwYdSwHcSbDvDI4 iPIqtJQgcB2TtjAUyTDILURAfa5elD6qnNPDod0 YyqU1zcYN2zRKtLWWnxTM3DYGkOTX0UJschEOeV SRuFRVwyWCfoRRpBz3izFMcG1XfS1txcrHwnYJd qCX4bNCmSSymbxKoFRD8OSLotD2aWD6jEFRgaHE dTX9uzSQmXGRhKPQiUXBvUPOfr3OnJQNkxg36VK PsMbfapTyaOPSmNr0nIy7uMOYizhHbZML4IlTHH F2jltxyeRYpaSomaz9uACudJZXHSIDlSODbOIA7 KRAqpF5xWNH4gOZ8AFG9V2mfN9qzLCAfzkNpKU5 qXFOtiTInprAlQOuuAL4ffHFpDSRrq8UukpzzZT XkQXY1OEJ9FUauZCXiPKAgWb6oQYNwuM7vM3UfE LC6zoUtm0ScRyWQmYIqlC67vABmhu56HSNmLVMg F1TbGKBcODAsOTfecsKjcWlcTVDkt64rcAPgswA oz4PqhsYvKDGeP7gaUSKveLLpsJIjn7HxuA0eiM CdhlRxDKR8wAQpGPEedK8gBJTztGyaWXYjyP1kU 2PeAPgrNg3eWCYjdzwkNI1ajw15WX4zxhWuVT2f yjNxWY91llDdYiLnNVn0WHuXFZaRDPk2ICYoloB ivDYpsLWnUHTbcF7tvGCjKl6vcOOloQmvVOVmiX UqDFcmrIcmL8zkjcafBCequDZrb0YutS5tdHI8X MO0uZ9kFdgrvNVrkrjoCgmwhjSjVSenngozFZUf VAhnQ0vaPcMjMVKmqGiaZxtdo9RvJJPbNMAuEoQ tpOQeRTNnroMhmPrizS5dNmDhLwXsWIxmnZWceo ukThtzicL8RBKadu5= Gross assessment was performed at (test [facility] enter, code = 2777) Department of Pathology, [address] [place] [address], Technical component was performed at [facility] er, (test code = 2778) Department of Pathology, [address] [place] [address], Professional component was performed at [facility] enter, (test code = 2779) Department of Pathology, [address] [place] [address], [facility] CenterT[facility] [id number] 10:48:00Surgical Pathology Report Case: [id number] Authorizing Provider: David Alfred, Collected: 01/17/2020 05:03 PM OrderingLocation: [address] Received: 01/18/2020 09:09 AM Service Pathologist: Wayne Mcadams MD Specimen: Biopsy, Gastric, Random gastric bx Immunostain for helicobacter performed on block A1 is POSITIVE.Addendum electronically signed by Wayne Mcadams MD on 01/20/2020 at 10:48 AMPART A RANDOM GASTRIC BIOPSY:ANTRAL AND OXYNTIC MUCOSA WITH ACTIVE CHRONIC GASTRITIS.NEGATIVE FOR INTESTINAL METAPLASIA, DYSPLASIA, OR INVASIVE CARCINOMA.WARTHIN STARRY STAIN FOR HELICOBACTER IS NEGATIVE.IMMUNOSTAIN FOR HELICOBACTER IS PENDING, ADDENDUM REPORT TO FOLLOW.Signing Pathologist Direct Phone Line: [phone] signed by Wayne Mcadams MD on 01/18/2020 at 4:47 [id number] BLEEDGastric biopsyReceived in formalin labeled withthe patient's name, accession number and "gastric biopsy" are 3 fam-pink tissue fragments measuring up to 0.3 cm in greatest dimension which are filtered and submitted in toto in A1.MARYLIN Augustin ([facility])cmPERFORMED.The interpretation of this case included the use of immunohistochemistry or special stains.BLOCK A1- WARTHIN STARRYAN, HELICOBACTER IMMUNOSTAIN.Control Slides Examined: In-house known positive controls were evaluated along with the test tissue. These control slides run alongside of the patients sample show appropriate staining. Internal positive and negative controls when available are evaluated Immunohistochemistry technical testing was performed at [facility], Pathology Laboratory where it was developed and its performance characteristics were determined. It has not been cleared or approved by the U.S. Food and Drug Administration. The FDA has determined that such clearance or approval is not necessary. The test is used for clinical purposes. It should not be regarded as investigational or for research. This laboratory is certified under the Clinical Laboratory Improvement Amendments of 1988 (CLIA-88) as qualified to perform high complexity clinical laboratory testing.[facility], Department of Pathology, [address] [place] [address], [facility], [facility] of [facility]ology, [address] [place] [address], RztwttSanta Clara [facility], Department of Pathology, [address] [place] [address], Utdnft doppler arm, right 2020-01-19 11:48:48Ejection FractionSLE ECHO HEARTLAB MKCKESSON CPACSRight Impression1. There is no deep venous obstruction in the jugular, subclavian, axillary,brachial, radial or ulnar veins.2. There is no superficialvenous obstruction in the cephalic or basilicveins. Conclusions Summary Venous duplex imaging andcompression of the right upper extremity were performed. The veins were adequately visualized. The right venous system was patent and compressible with no evidence of thrombus. Signature Velocities are measured in cm/s ; Diameters are measured in cm Interface, External Ris In - 11:48 AM CDTPV LAB - Upper Extremities Veins Demographics Patient Name CINTHIA CUEVAS Date of Study 01/18/2020 Age 74 VisitNumber [id number] Gender Male Accession Number [id number] Date of 1945 Referring Thao Baker Room Number 1023 Physician Zuri Valve Mechanic Wyatt Gonzalez Interpreting BEBA Portillo Physician ProcedureType of Study: Veins: Upper Extremities Veins,VENOUS DOPPLER ARM, RIGHT. Indications for Study:Pain and Swelling.Patient Status:STAT.Study Location:Vascular Lab.Technical Quality:Adequate visualization.Risk FactorsHistory of Disease+ -------+ + +!Diagnosis !Date !Comments !+ + + ---------+!History/Risk Factors: !01/18/2020!ASHLY, HTN, History of fall 2 days ago !+ --------+ + +ImpressionsRight Impression1. There is no deep venous obstruction in the jugular, subclavian, axillary,brachial, radial or ulnar veins.2. There is no superficial venous obstruction in the cephalic or basilicveins. Conclusions Summary Venous duplex imaging and compression of the right upper extremity were performed. The veins were adequately visualized. The right venous system was patent and compressible with no evidence of thrombus. Signature Velocities are measured in cm/s ; Diameters are measured in [facility] Basic Metabolic [id number] 04:55:00 Test Item Value Reference Range Interpretation Comments Sodium (test code = 135 meq/L 136-145 L 2951-2) Potassium (test code = 3.5 meq/L 3.5-5.1 2823-3) Chloride (test code = 104 meq/L 98-107 5-0) CO2 (test code = 24 meq/L 22-29 2027-9) BUN (test code = 20 mg/dL 7-21 3094-0) Creatinine (test code 0.78 mg/dL 0.57-1.25 = 2160-0) Glucose (test code = 99 mg/dL 70-105 2345-7) Calcium (test code = 7.7 mg/dL 8.4-10.2 L 49145-3) EGFR (test code = 118 mL/min/1.73 [place] [address]-1) NOT ACCURATE CREATININE CLEARANCE IN PREDICTING GLOMERULAR FILTRATION RATE . ESTIMATED GFR I S NOT APPLICABLE FOR DIALYSIS PATIENTS. BEAR (test code = BEAR) Talent Advisor ID Jose JACOME W Lab Interpretation Abnormal (test code = 38532-5) [facility] CenterMagnesium2020-06-16 04:55:00 Test Item Value Reference Range Interpretation Comments Magnesium (test code = 2.2 mg/dL 1.6-2.6 41671-4) BEAR (test code = BEAR) Talent Advisor ID Jose JACOME W Lab Interpretation (test Normal code = 39001-1) [facility] CenterMAGNESIUM2020-06-16 04:55:00 Test Item Value Reference Range Interpretation Comments MAGNESIUM (BEAKER) (test code = 2.2 mg/dL 1.6-2.6 627) Talent Advisor ID Jose JACOME WBASIC METABOLIC [id number] 04:55:00 Test Item Value Reference Range Interpretation Comments SODIUM (BEAKER) 135 meq/L 136-145 L (test code = 381) POTASSIUM (BEAKER) 3.5 meq/L 3.5-5.1 (test code = 379) CHLORIDE (BEAKER) 104 meq/L 98-107 (test code = 382) CO2 (BEAKER) (test 24 meq/L 22-29 code = 355) BLOOD UREA NITROGEN 20 mg/dL 7-21 (BEAKER) (test code = 354) CREATININE (BEAKER) 0.78 mg/dL 0.57-1.25 (test code = 358) GLUCOSE RANDOM 99 mg/dL 70-105 (BEAKER) (test code = 652) CALCIUM (BEAKER) 7.7 mg/dL 8.4-10.2 L (test code = 697) EGFR (BEAKER) (test 118 mL/min/1.73 ESTIM ATED GFR IS code = 1092) sq m NOT ACCURATE CREATININE CLEARANCE IN PREDICTING GLOMERULAR FILTRATION RATE . ESTIMATED GFR I S NOT APPLICABLE FOR DIALYSIS PATIEN TS. Talent Advisor ID Jose JACOME WCBC with platelet count + automated [id number] 04:31:00 Test Item Value Reference Range Interpretation Comments WBC (test code = 6690-2) 5.6 3.5- 10.5 K/L RBC (test code = 789-8) 2.50 4.63- 6.08 M/L L MCHC (test code = 786-4) 32.0 32.3- 36.5 GM/DL L Hematocrit (test code = 4544-3) 23.1 % 40.1-51 L MCV (test code = 787-2) 92.4 fL 79-92.2 H MCH (test code = 785-6) 29.6 pg 25.7-32.2 RDW (test code = 788-0) 16.9 % 11.6-14.4 H Platelets (test code = 777-3) 156 150- 450 K/CU MM MPV (test code = 65217-3) 11.9 fL 9.4-12.4 nRBC (test code = 413) 0 0- 0 /100 WBC % Neutros (test code = 429) 73 % % Lymphs (test code = 430) 13 % % Monos (test code = 431) 9 % % Eos (test code = 432) 2 % % Baso (test code = 437) 0 % # Neutros (test code = 670) 4.11 1.78- 5.38 K/L # Lymphs (test code = 414) 0.74 1.32- 3.57 K/L L # Monos (test code = 415) 0.53 0.30- 0.82 K/L # Eos (test code = 416) 0.12 0.04- 0.54 K/L # Baso (test code = 417) 0.02 0.01- 0.08 K/L Immature Granulocytes-Relative 2 % 0-1 H (test code = 2801) Lab Interpretation (test code = Abnormal 87418-3) [facility] W/PLT COUNT & AUTO [id number] 04:31:00 Test Item Value Reference Range Interpretation Comments WHITE BLOOD CELL COUNT (BEAKER) 5.6 K/ L 3.5-10.5 (test code = 775) RED BLOOD CELL COUNT (BEAKER) 2.50 M/ L 4.63-6.08 L (test code = 761) HEMOGLOBIN (BEAKER) (test code = 7.4 GM/DL 13.7-17.5 L 410) HEMATOCRIT (BEAKER) (test code = 23.1 % 40.1-51.0 L 411) MEAN CORPUSCULAR VOLUME (BEAKER) 92.4 fL 79.0-92.2 H (test code = 753) MEAN CORPUSCULAR HEMOGLOBIN 29.6 pg 25.7-32.2 (BEAKER) (test code = 751) MEAN CORPUSCULAR HEMOGLOBIN CONC 32.0 GM/DL 32.3-36.5 L (BEAKER) (test code = 752) RED CELL DISTRIBUTION WIDTH 16.9 % 11.6-14.4 H (BEAKER) (test code = 412) PLATELET COUNT (BEAKER) (test 156 K/CU MM 150-450 code = 756) MEAN PLATELET VOLUME (BEAKER) 11.9 fL 9.4-12.4 (test code = 754) NUCLEATED RED BLOOD CELLS 0 /100 WBC 0-0 (BEAKER) (test code = 413) NEUTROPHILS RELATIVE PERCENT 73 % (BEAKER) (test code = 429) LYMPHOCYTES RELATIVE PERCENT 13 % (BEAKER) (test code = 430) MONOCYTES RELATIVE PERCENT 9 % (BEAKER) (test code = 431) EOSINOPHILS RELATIVE PERCENT 2 % (BEAKER) (test code = 432) BASOPHILS RELATIVE PERCENT 0 % (BEAKER) (test code = 437) NEUTROPHILS ABSOLUTE COUNT 4.11 K/ L 1.78-5.38 (BEAKER) (test code = 670) LYMPHOCYTES ABSOLUTE COUNT 0.74 K/ L 1.32-3.57 L (BEAKER) (test code = 414) MONOCYTES ABSOLUTE COUNT (BEAKER) 0.53 K/ L 0.30-0.82 (test code = 415) EOSINOPHILS ABSOLUTE COUNT 0.12 K/ L 0.04-0.54 (BEAKER) (test code = 416) BASOPHILS ABSOLUTE COUNT (BEAKER) 0.02 K/ L 0.01-0.08 (test code = 417) IMMATURE GRANULOCYTES-RELATIVE 2 % 0-1 H PERCENT (BEAKER) (test code = 2801) Prothrombin time/[id number] 04:30:00 Test Item Value Reference Range Interpretation Comments Protime (test code = 15.3 11.9- 14.2 H 5902-2) seconds INR (test code = 1.2 <=5.9 6301-6) BEAR (test code = BEAR) Effective 12/31/2018: PT Reference Range ChangeNew: 11.9-14.2 Previous: 11.7-14.7 RECOMMENDED COUMADIN/WARFARIN INR THERAPY RANGESSTANDARD DOSE: 2.0-3.0 Includes: PROPHYLAXIS for venous thrombosis, systemic embolization; TREATMENT for venous thrombosis and/or pulmonary embolus.HIGH RISK: Target INR is 2.5-3.5 for patients wiht mechanical heart valves. Lab Interpretation Abnormal (test code = 28663-7) [facility] CenterPROTHROMBIN TIME/[id number] 04:30:00 Test Item Value Reference Range Interpretation Comments PROTIME (BEAKER) (test code = 15.3 seconds 11.9-14.2 H 759) INR (BEAKER) (test code = 370) 1.2 <=5.9 Effective 12/31/2018: PT Reference Range ChangeNew: 11.9-14.2 Previous: 11.7- 14.7RECOMMENDED COUMADIN/WARFARIN INR THERAPY RANGESSTANDARD DOSE: 2.0-3.0 Includes: PROPHYLAXIS for venous thrombosis, systemic embolization; TREATMENT for venous thrombosis and/or pulmonary embolus.HIGH RISK: Target INR is2.5-3.5 for patients wiht mechanical heart valves.Prepare Leuko-Red [id number] 23:54:00 Test Item Value Reference Range Interpretation Comments CROSSMATCH (test code = 2264) COMPATIBLE Unit ABO (test code = B Pos 1007900) UNIT NUMBER (test code = [id number] 934-0) Status (test code = 0380088) TX_TIMEINCHART Blood Bank Product (test code RED BLOOD CELLS = 2263) PRODUCT CODE (test code = H9911U37 933-2) [facility] CenterECG 12 [id number] 10:52:57Interface, External Ris In - 01/18/2020 10:53 AM CDTVentricular Rate 84 BPMAtrial Rate 84 BPMP-R Interval 228 msQRS Duration 86 msQ-T Interval 414 msQTC Calculation(Bazett) 489 msP [place] 89 degreesR [place] 40 degreesT [place] 35 degreesSinus rhythm with 1st degree A-V blockNonspecific ST abnormalityProlonged QTAbnormal ECGNo previous ECGs availableConfirmed by MD HARRIETT, ROULA ([id number]) on 01/18/2020 10:52:55 AM [facility] CenterMAGNESIUM2020-06-15 05:53:00 Test Item Value Reference Range Interpretation Comments MAGNESIUM (BEAKER) (test code = 2.4 mg/dL 1.6-2.6 627) Talent Advisor ID - MARVA LBASIC METABOLIC [id number] 05:53:00 Test Item Value Reference Range Interpretation Comments SODIUM (BEAKER) 135 meq/L 136-145 L (test code = 381) POTASSIUM (BEAKER) 3.5 meq/L 3.5-5.1 (test code = 379) CHLORIDE (BEAKER) 102 meq/L 98-107 (test code = 382) CO2 (BEAKER) (test 24 meq/L 22-29 code = 355) BLOOD UREA NITROGEN 34 mg/dL 7-21 H (BEAKER) (test code = 354) CREATININE (BEAKER) 0.84 mg/dL 0.57-1.25 (test code = 358) GLUCOSE RANDOM 104 mg/dL 70-105 (BEAKER) (test code = 652) CALCIUM (BEAKER) 8.0 mg/dL 8.4-10.2 L (test code = 697) EGFR (BEAKER) (test 108 mL/min/1.73 ESTIM ATED GFR IS code = 1092) sq m NOT ACCURATE CREATININE CLEARANCE IN PREDICTING GLOMERULAR FILTRATION RATE . ESTIMATED GFR I S NOT APPLICABLE FOR DIALYSIS PATIEN TS. Talent Advisor ID - MARVA LPROTHROMBIN TIME/[id number] 05:26:00 Test Item Value Reference Range Interpretation Comments PROTIME (BEAKER) (test code = 14.8 seconds 11.9-14.2 H 759) INR (BEAKER) (test code = 370) 1.2 <=5.9 Effective 12/31/2018: PT Reference Range ChangeNew: 11.9-14.2 Previous: 11.7- 14.7RECOMMENDED COUMADIN/WARFARIN INR THERAPY RANGESSTANDARD DOSE: 2.0-3.0 Includes: PROPHYLAXIS for venous thrombosis, systemic embolization; TREATMENT for venous thrombosis and/or pulmonary embolus.HIGH RISK: Target INR is2.5-3.5 for patients wiht mechanical heart valves.CBC W/PLT COUNT & AUTO [id number] 05:15:00 Test Item Value Reference Range Interpretation Comments WHITE BLOOD CELL COUNT (BEAKER) 8.2 K/ L 3.5-10.5 (test code = 775) RED BLOOD CELL COUNT (BEAKER) 2.83 M/ L 4.63-6.08 L (test code = 761) HEMOGLOBIN (BEAKER) (test code = 8.3 GM/DL 13.7-17.5 L 410) HEMATOCRIT (BEAKER) (test code = 25.5 % 40.1-51.0 L 411) MEAN CORPUSCULAR VOLUME (BEAKER) 90.1 fL 79.0-92.2 (test code = 753) MEAN CORPUSCULAR HEMOGLOBIN 29.3 pg 25.7-32.2 (BEAKER) (test code = 751) MEAN CORPUSCULAR HEMOGLOBIN CONC 32.5 GM/DL 32.3-36.5 (BEAKER) (test code = 752) RED CELL DISTRIBUTION WIDTH 15.9 % 11.6-14.4 H (BEAKER) (test code = 412) PLATELET COUNT (BEAKER) (test 174 K/CU MM 150-450 code = 756) MEAN PLATELET VOLUME (BEAKER) 11.8 fL 9.4-12.4 (test code = 754) NUCLEATED RED BLOOD CELLS 1 /100 WBC 0-0 H (BEAKER) (test code = 413) NEUTROPHILS RELATIVE PERCENT 78 % (BEAKER) (test code = 429) LYMPHOCYTES RELATIVE PERCENT 11 % (BEAKER) (test code = 430) MONOCYTES RELATIVE PERCENT 8 % (BEAKER) (test code = 431) EOSINOPHILS RELATIVE PERCENT 2 % (BEAKER) (test code = 432) BASOPHILS RELATIVE PERCENT 0 % (BEAKER) (test code = 437) NEUTROPHILS ABSOLUTE COUNT 6.37 K/ L 1.78-5.38 H (BEAKER) (test code = 670) LYMPHOCYTES ABSOLUTE COUNT 0.88 K/ L 1.32-3.57 L (BEAKER) (test code = 414) MONOCYTES ABSOLUTE COUNT (BEAKER) 0.65 K/ L 0.30-0.82 (test code = 415) EOSINOPHILS ABSOLUTE COUNT 0.16 K/ L 0.04-0.54 (BEAKER) (test code = 416) BASOPHILS ABSOLUTE COUNT (BEAKER) 0.03 K/ L 0.01-0.08 (test code = 417) IMMATURE GRANULOCYTES-RELATIVE 1 % 0-1 PERCENT (BEAKER) (test code = 2801) CBC W/PLT COUNT & AUTO [id number] 12:38:00 Test Item Value Reference Range Interpretation Comments WHITE BLOOD CELL COUNT (BEAKER) 9.5 K/ L 3.5-10.5 (test code = 775) RED BLOOD CELL COUNT (BEAKER) 2.59 M/ L 4.63-6.08 L (test code = 761) HEMOGLOBIN (BEAKER) (test code = 7.6 GM/DL 13.7-17.5 L 410) HEMATOCRIT (BEAKER) (test code = 22.9 % 40.1-51.0 L 411) MEAN CORPUSCULAR VOLUME (BEAKER) 88.4 fL 79.0-92.2 (test code = 753) MEAN CORPUSCULAR HEMOGLOBIN 29.3 pg 25.7-32.2 (BEAKER) (test code = 751) MEAN CORPUSCULAR HEMOGLOBIN CONC 33.2 GM/DL 32.3-36.5 (BEAKER) (test code = 752) RED CELL DISTRIBUTION WIDTH 15.1 % 11.6-14.4 H (BEAKER) (test code = 412) PLATELET COUNT (BEAKER) (test 169 K/CU MM 150-450 code = 756) MEAN PLATELET VOLUME (BEAKER) 11.7 fL 9.4-12.4 (test code = 754) NUCLEATED RED BLOOD CELLS 0 /100 WBC 0-0 (BEAKER) (test code = 413) NEUTROPHILS RELATIVE PERCENT 84 % (BEAKER) (test code = 429) LYMPHOCYTES RELATIVE PERCENT 7 % (BEAKER) (test code = 430) MONOCYTES RELATIVE PERCENT 7 % (BEAKER) (test code = 431) EOSINOPHILS RELATIVE PERCENT 1 % (BEAKER) (test code = 432) BASOPHILS RELATIVE PERCENT 0 % (BEAKER) (test code = 437) NEUTROPHILS ABSOLUTE COUNT 7.97 K/ L 1.78-5.38 H (BEAKER) (test code = 670) LYMPHOCYTES ABSOLUTE COUNT 0.70 K/ L 1.32-3.57 L (BEAKER) (test code = 414) MONOCYTES ABSOLUTE COUNT (BEAKER) 0.68 K/ L 0.30-0.82 (test code = 415) EOSINOPHILS ABSOLUTE COUNT 0.07 K/ L 0.04-0.54 (BEAKER) (test code = 416) BASOPHILS ABSOLUTE COUNT (BEAKER) 0.02 K/ L 0.01-0.08 (test code = 417) IMMATURE GRANULOCYTES-RELATIVE 1 % 0-1 PERCENT (BEAKER) (test code = 2801) Hemoglobin and [id number] 05:57:00 Test Item Value Reference Range Interpretation Comments Hemoglobin (test code = 6.2 13.7- 17.5 GM/DL L 786-4) Hematocrit (test code = 19.3 % 40.1-51 L 4544-3) BEAR (test code = BEAR) Talent Advisor ID - [id number] Lab Interpretation (test Abnormal code = 51885-6) [facility] CenterHEMOGLOBIN AND [id number] 05:57:00 Test Item Value Reference Range Interpretation Comments HEMOGLOBIN (BEAKER) (test code = 6.2 GM/DL 13.7-17.5 L 410) HEMATOCRIT (BEAKER) (test code = 19.3 % 40.1-51.0 L 411) Talent Advisor ID - [id number] B12 and [id number] 05:35:00 Test Item Value Reference Range Interpretation Comments Vitamin B12 (test code = >2000 213-816 H 2132-9) Folate (test code = 14.20 ng/mL >=7.00 2284-8) BEAR (test code = BEAR) Talent Advisor ID - PIAYA L Lab Interpretation (test Abnormal code = 95053-7) [facility] CenterVITAMIN B12 AND [id number] 05:35:00 Test Item Value Reference Range Interpretation Comments VITAMIN B12 (BEAKER) (test code = > pg/mL 213-816 H 774) FOLATE (BEAKER) (test code = 362) 14.20 ng/mL >=7.00 Talent Advisor ID - PIAYA KFyhfdpjl0524-66-88 05:27:00 Test Item Value Reference Range Interpretation Comments Ferritin (test code = 947.60 ng/mL 5-275 H 2276-4) BEAR (test code = BEAR) Talent Advisor ID - PIAYA L Lab Interpretation (test Abnormal code = 91831-8) [facility] CenterFERRITIN2020-06-14 05:27:00 Test Item Value Reference Range Interpretation Comments FERRITIN (BEAKER) (test code = 947.60 ng/mL 5.00-275.00 H 361) Talent Advisor ID - MARVA LHEMOGLOBIN AND [id number] 03:47:00 Test Item Value Reference Range Interpretation Comments HEMOGLOBIN (BEAKER) (test code = 5.3 GM/DL 13.7-17.5 LL 410) HEMATOCRIT (BEAKER) (test code = 16.1 % 40.1-51.0 L 411) Talent Advisor ID - MarizaPROTHROMBIN TIME/[id number] 03:38:00 Test Item Value Reference Range Interpretation Comments PROTIME (BEAKER) (test code = 16.4 seconds 11.9-14.2 H 759) INR (BEAKER) (test code = 370) 1.4 <=5.9 Effective 12/31/2018: PT Reference Range ChangeNew: 11.9-14.2 Previous: 11.7- 14.7RECOMMENDED COUMADIN/WARFARIN INR THERAPY RANGESSTANDARD DOSE: 2.0-3.0 Includes: PROPHYLAXIS for venous thrombosis, systemic embolization; TREATMENT for venous thrombosis and/or pulmonary embolus.HIGH RISK: Target INR is2.5-3.5 for patients wiht mechanical heart valves.[id number] 02:11:00 Test Item Value Reference Range Interpretation Comments Haptoglobin (test code = 277 mg/dL 14-258 H 4542-7) BEAR (test code = BEAR) Talent Advisor ID - MARVA L Lab Interpretation (test Abnormal code = 35019-1) [facility] 02:11:00 Test Item Value Reference Range Interpretation Comments HAPTOGLOBIN (BEAKER) (test code = 277 mg/dL 14-258 H 366) Talent Advisor ID - MARVA Kurt, TIBC, % sat. (without ferritin)2020-01-17 02:10:00 Test Item Value Reference Range Interpretation Comments Iron (test code = 2498-4) 38.0 ug/dL 40-160 L TIBC (test code = 2500-7) 151 ug/dL 250-450 L Iron % Saturation (test 25 % 20-55 code = 2502-3) BEAR (test code = BEAR) Talent Advisor ID - MARVA L Lab Interpretation (test Abnormal code = 81453-5) [facility], % SAT. (WITHOUT FERRITIN)2020-01-17 02:10:00 Test Item Value Reference Range Interpretation Comments IRON (BEAKER) (test code = 547) 38.0 ug/dL 40.0-160.0 L TOTAL IRON BINDING CAPACITY 151 ug/dL 250-450 L (BEAKER) (test code = 769) IRON % SATURATION (2) (BEAKER) 25 % 20-55 (test code = 2590) Talent Advisor ELVIRA Jose PETERSON, [id number] 02:00:00 Test Item Value Reference Range Interpretation Comments ABO Grouping (test code = 2588) B Rh Factor (test code = 2589) POS [facility]Type [facility], [id number] 01:59:00 Test Item Value Reference Range Interpretation Comments ABO/RH AUTOMATED (BEAKER) (test B POSITIVE code = 2260) Ab Scrn (test code = 890-4) NEGATIVE [facility] CenterHepatic function [id number] 01:50:00 Test Item Value Reference Range Interpretation Comments Protein, Total (test code 5.8 6.0- 8.3 gm/dL L = 2885-2) Albumin (test code = 2.7 g/dL 3.5-5 L 04685-6) Total Bilirubin (test code 0.6 mg/dL 0.2-1.2 = 1975-2) Bilirubin, Direct (test 0.4 mg/dL 0.1-0.5 code = 1968-7) Alkaline Phosphatase (test 71 U/L 40-150 code = 6768-6) AST (test code = 1920-8) 40 U/L 5-34 H ALT (test code = 1742-6) 26 U/L 6-55 BEAR (test code = BEAR) Talent Advisor ID Jose ANGELOHUE L Lab Interpretation (test Abnormal code = 94595-3) [facility] CenterLact[facility] dehydrogenase (LDH)2020-01-17 01:50:00 Test Item Value Reference Range Interpretation Comments LDH (test code = 2532-0) 484 U/L 125-220 H BEAR (test code = BEAR) Talent Advisor ID Jose DURHAM L Lab Interpretation (test Abnormal code = 70667-3) [facility] CenterMAG[facility]UM2020-06-14 01:50:00 Test Item Value Reference Range Interpretation Comments MAGNESIUM (BEAKER) (test code = 2.4 mg/dL 1.6-2.6 627) Talent Advisor ID - MARVA LBASIC METABOLIC [id number] 01:50:00 Test Item Value Reference Range Interpretation Comments SODIUM (BEAKER) 132 meq/L 136-145 L (test code = 381) POTASSIUM (BEAKER) 3.8 meq/L 3.5-5.1 (test code = 379) CHLORIDE (BEAKER) 99 meq/L 98-107 (test code = 382) CO2 (BEAKER) (test 22 meq/L 22-29 code = 355) BLOOD UREA NITROGEN 57 mg/dL 7-21 H (BEAKER) (test code = 354) CREATININE (BEAKER) 1.14 mg/dL 0.57-1.25 (test code = 358) GLUCOSE RANDOM 143 mg/dL 70-105 H (BEAKER) (test code = 652) CALCIUM (BEAKER) 8.0 mg/dL 8.4-10.2 L (test code = 697) EGFR (BEAKER) (test 76 mL/min/1.73 ESTIMA KELLEE GFR IS code = 1092) sq m NOT ACCURATE CREATININE CLEARANCE IN PREDICTING GLOMERULAR FILTRATION RATE . ESTIMATED GFR I S NOT APPLICABLE FOR DIALYSIS PATIEN TS. Talent Advisor ID - PIHUE LHEPATIC FUNCTION [id number] 01:50:00 Test Item Value Reference Range Interpretation Comments TOTAL PROTEIN (BEAKER) (test code = 5.8 gm/dL 6.0-8.3 L 770) ALBUMIN (BEAKER) (test code = 1145) 2.7 g/dL 3.5-5.0 L BILIRUBIN TOTAL (BEAKER) (test code 0.6 mg/dL 0.2-1.2 = 377) BILIRUBIN DIRECT (BEAKER) (test 0.4 mg/dL 0.1-0.5 code = 706) ALKALINE PHOSPHATASE (BEAKER) (test 71 U/L 40-150 code = 346) AST (SGOT) (BEAKER) (test code = 40 U/L 5-34 H 353) ALT (SGPT) (BEAKER) (test code = 26 U/L 6-55 347) Talent Advisor ID Jose DURHAM LLACTATE DEHYDROGENASE (LDH)2020-01-17 01:50:00 Test Item Value Reference Range Interpretation Comments LACTATE DEHYDROGENASE (BEAKER) (test 484 U/L 125-220 H code = 635) Talent Advisor ID - PIAYA LSARS-CoV2/RT-PCR (Asymptomatic ONLY)2020-01-17 01:38:00 Test Item Value Reference Range Interpretation Comments SARS-COV2/RT-PCR Not Detected Not Detected, (test code = Negative 47352-8) SARS-COV-2 [facility] PERFORMING LAB (test code = 54663-9) BEAR (test code = Negative results do not BEAR) preclude SARS-CoV-2 infection and should not be used as [...] of the Act. Fact Sheet for Healthcare Providers:https://www.Shawarmanji/Documents/Xper t%20Xpress%20SARS%20CoV- 2/Fact%20Sheets/302-7652 %78KKXS-ZML-6%20HEALTHCA RE%20PROVIDERS%20FACT%20 SHEET.pdf Fact Sheet for Healthcare Patients:https://www.Feeligoid.Critical Links/Documents/Xpert %20Xpress%20SARS%20CoV-2 /Fact%20Sheets/302-3381% 21BKQG-QES-7%20PATIENT%2 0FACT%20SHEET.pdf Performing Laboratory:[facility], [place] [id number] [place], [place] [address]ARS-COV2/RT-PCR ([facility])2020-01-17 01:38:00 Test Item Value Reference Range Interpretation Comments SARS-COV2/RT-PCR (test Not Detected Not Detected, Negative code = 2725793) SARS-COV-2 PERFORMING LAB [facility] (test code = 1466340) Negative results do not preclude SARS-CoV-2 infection and should not be used as the sole basis for patient management decisions. Negative results must be combined with clinical observations, patient history, and epidemiological information. A false negative result may occur if a specimen is improperly collected, transported or handled.The limit of detection for this assay is 250 copies/mL.This SARS CoV-2 test is a rapid, real-time RT-PCR test intended for the qualitative detection of nucleic acid from SARS-CoV-2 in a nasopharyngeal swab specimen collected from individuals suspected of COVID-19 by their healthcare provider.This test has not been Food and Drug [...] is revoked under Section 564(g) of the Act.Fact Sheet for Healthcare Pro viders:https://www.[employer]/Documents/Xpert%20Xpress%20SARS%20CoV-2/Fact%20Sh eets/302-3802%19CQYL-XAD-6%20HEALTHCARE%20PROVIDERS%20FACT%20SHEET.pdfFact Sheet for Healthcare Patients:https://www.Mocoplex/Documents/Xpert%20Xpress%20SARS%20CoV-2/Fact%20Sheets/302-3801%20SARS-COV -2%20PATIENT%20FACT%20SHEET.pdfPerforming Laboratory:[facility], [place] [id number] 01:24:00 Test Item Value Reference Range Interpretation Comments Protime (test code = 16.5 11.9- 14.2 H 5902-2) seconds INR (test code = 1.4 <=5.9 6301-6) PTT (test code = 31.0 22.5- 36.0 59502-5) seconds BEAR (test code = BEAR) Effective 12/31/2018: PT Reference Range ChangeNew: 11.9-14.2 Previous: 11.7-14.7 RECOMMENDED COUMADIN/WARFARIN INR THERAPY RANGESSTANDARD DOSE: 2.0-3.0 Includes: PROPHYLAXIS for venous thrombosis, systemic embolization; TREATMENT for venous thrombosis and/or pulmonary embolus.HIGH RISK: Target INR is 2.5-3.5 for patients wiht mechanical heart valves. Lab Interpretation Abnormal (test code = 56623-6) [id number]00 Test Item Value Reference Range Interpretation Comments PROTIME (BEAKER) (test code = 16.5 seconds 11.9-14.2 H 759) INR (BEAKER) (test code = 370) 1.4 <=5.9 PARTIAL THROMBOPLASTIN TIME 31.0 seconds 22.5-36.0 (BEAKER) (test code = 760) Effective 12/31/2018: PT Reference Range ChangeNew: 11.9-14.2 Previous: 11.7- 14.7RECOMMENDED COUMADIN/WARFARIN INR THERAPY RANGESSTANDARD DOSE: 2.0-3.0 Includes: PROPHYLAXIS for venous thrombosis, systemic embolization; TREATMENT for venous thrombosis and/or pulmonary embolus.HIGH RISK: Target INR is2.5-3.5 for patients wiht mechanical heart valves.Reticulocyte [id number] 01:20:00 Test Item Value Reference Range Interpretation Comments % Retic (test code = 4.9 % 0.5-1.8 H 08509-5) BEAR (test code = BEAR) Talent Advisor ID - [id number] Lab Interpretation (test Abnormal code = 66352-9) [facility] & AUTO [id number] 01:20:00 Test Item Value Reference Range Interpretation Comments WHITE BLOOD CELL COUNT (BEAKER) 11.4 K/ L 3.5-10.5 H (test code = 775) RED BLOOD CELL COUNT (BEAKER) 1.69 M/ L 4.63-6.08 L (test code = 761) HEMOGLOBIN (BEAKER) (test code = 4.8 GM/DL 13.7-17.5 LL 410) HEMATOCRIT (BEAKER) (test code = 15.5 % 40.1-51.0 L 411) MEAN CORPUSCULAR VOLUME (BEAKER) 91.7 fL 79.0-92.2 (test code = 753) MEAN CORPUSCULAR HEMOGLOBIN 28.4 pg 25.7-32.2 (BEAKER) (test code = 751) MEAN CORPUSCULAR HEMOGLOBIN CONC 31.0 GM/DL 32.3-36.5 L (BEAKER) (test code = 752) RED CELL DISTRIBUTION WIDTH 15.3 % 11.6-14.4 H (BEAKER) (test code = 412) PLATELET COUNT (BEAKER) (test 196 K/CU MM 150-450 code = 756) MEAN PLATELET VOLUME (BEAKER) 12.3 fL 9.4-12.4 (test code = 754) NUCLEATED RED BLOOD CELLS 0 /100 WBC 0-0 (BEAKER) (test code = 413) NEUTROPHILS RELATIVE PERCENT 86 % (BEAKER) (test code = 429) LYMPHOCYTES RELATIVE PERCENT 7 % (BEAKER) (test code = 430) MONOCYTES RELATIVE PERCENT 6 % (BEAKER) (test code = 431) EOSINOPHILS RELATIVE PERCENT 0 % (BEAKER) (test code = 432) BASOPHILS RELATIVE PERCENT 0 % (BEAKER) (test code = 437) NEUTROPHILS ABSOLUTE COUNT 9.78 K/ L 1.78-5.38 H (BEAKER) (test code = 670) LYMPHOCYTES ABSOLUTE COUNT 0.78 K/ L 1.32-3.57 L (BEAKER) (test code = 414) MONOCYTES ABSOLUTE COUNT (BEAKER) 0.66 K/ L 0.30-0.82 (test code = 415) EOSINOPHILS ABSOLUTE COUNT 0.00 K/ L 0.04-0.54 L (BEAKER) (test code = 416) BASOPHILS ABSOLUTE COUNT (BEAKER) 0.01 K/ L 0.01-0.08 (test code = 417) IMMATURE GRANULOCYTES-RELATIVE 1 % 0-1 PERCENT (BEAKER) (test code = 2801) RETICULOCYTE [id number] 01:20:00 Test Item Value Reference Range Interpretation Comments RETICULOCYTE COUNT PCT (BEAKER) (test 4.9 % 0.5-1.8 H code = 575) Talent Advisor ID - [id number]
[2020-02-12] MEDS ORDERED: ACETAMINOPHEN 500 MG TAB PO PRN (01:05)
[2020-02-12] MEDS ORDERED: NA CHLORIDE 0.9% 1,000 ML IV SCH (01:05)
[2020-02-12] MEDS ORDERED: NA CHLORIDE 0.9% 1,000 ML ONE ×2 (02:02→10:30)
[2020-02-12] MEDS ORDERED: CEFTRIAXONE/SWI 1gm 1 GM/10 ML SYR IV SCH (05:00)
[2020-02-12] MEDS ORDERED: CEFTRIAXONE/SWI 1gm 0 GM/0 ML SYR ONE (06:02)
[2020-02-12 06:35] LABS: Protime INR 1.46
[2020-02-12 06:44] LABS: Absolute Lymphocytes (CBC) 0.4 K/uL (0.7-4.9); Basophils % 0.7 % (0-1.3); Hematocrit 30.1 % (39.6-49.0); Lymphocytes % 22.8 % (15.3-44.8); MPV 9.6 fL (7.6-11.3); RBC Red Blood Cell Count 3.37 M/uL (4.33-5.43)
[2020-02-12 06:50] LABS: Albumin 2.1 g/dL (3.4-5.0); Bilirubin Total 1.8 mg/dL (0.2-1.0); Magnesium 2.8 mg/dL (1.8-2.4); Phosphorus 4.1 mg/dL (2.5-4.9); Potassium 4.8 mmol/L (3.5-5.1); Protein, Total 5.5 g/dL (6.4-8.2)
[2020-02-12 08:48] LABS: Platelet Estimate DECR
[2020-02-12 08:49] LABS: Anisocytosis 1+; Blood Morphology Comment NOTED (NOT SEEN)
[2020-02-12 08:53] LABS: Absolute Lymphocytes (CBC) 0.3 K/uL (0.7-4.9); Basophils % 4.1 % (0-1.3); Hematocrit 30.4 % (39.6-49.0); Lymphocytes % 19.5 % (15.3-44.8); MPV 10.2 fL (7.6-11.3); RBC Red Blood Cell Count 3.38 M/uL (4.33-5.43)
[2020-02-12] MEDS: FUROSEMIDE 20 MG/ 2ML VIAL IV SCH ×2 (09:00→17:18)
[2020-02-12] MEDS: FOLIC ACID 1 MG TABLET PO SCH (09:00)
[2020-02-12] MEDS ORDERED: PNEUMOCOCCAL VACCINE 0.5 ML IMVAC ONE (09:00)
[2020-02-12] MEDS: THIAMINE HCL 100 MG TABLET PO SCH (09:00)
[2020-02-12] MEDS ORDERED: FLECAINIDE 100 MG TAB PO SCH (09:00)
--- NOTE | 2020-02-12 09:16 | P.PN ---
Subjective Date of Service: 02/12/20 Chief Complaint: Generalized weakness and fatigue Patient states he feels about the same. He has no fever. Petechial rash persist. Physical Examination - Vital Signs Temperature: 97.9 F Blood Pressure: 127/85 Pulse: 79 Respirations: 20 Pulse Ox (%): 100 - Physical Exam General: Alert, In no apparent distress, Oriented x3 HEENT: Mucous membr. moist/pink, Sclerae nonicteric Neck: Supple Respiratory: Clear to auscultation bilaterally, Normal air movement Cardiovascular: No edema, Regular rate/rhythm, Normal S1 S2, Edema (1+ bilateral pedal edema) Gastrointestinal: Normal bowel sounds, Soft and benign, Non-distended, No tenderness Integumentary: Other (Diffuse petechial rash) Neurological: Normal strength at 5/5 x4 extr, Cranial nerves 3-12 intact Lymphatics: No axilla or inguinal lymphadenopathy - Studies Laboratory Data (last 24 hrs) 02/11/20 21:26: PT 18.1 H, INR 1.55 02/11/20 21:26: WBC 1.9 L*, Hgb 9.9 L, Hct 29.7 L, Plt Count 28 L* 02/11/20 20:19: Sodium 133 L, Potassium 5.2 H, BUN 45 H, Creatinine 2.11 H, Glucose 105, Magnesium 2.9 H D, Total Bilirubin 2.1 H, AST 83 H, ALT 22, Alkaline Phosphatase 139 H 02/11/20 19:49: PT Cancelled, INR Cancelled 02/11/20 19:49: WBC Cancelled, Hgb Cancelled, Hct Cancelled, Plt Count Cancelled 02/11/20 19:49: Sodium Cancelled, Potassium Cancelled, BUN Cancelled, Creatinine Cancelled, Glucose Cancelled, Magnesium Cancelled, Total Bilirubin Cancelled, AST Cancelled, ALT Cancelled, Alkaline Phosphatase Cancelled Assessment And Plan - Current Problems (Diagnosis) (1) Pancytopenia Current Visit: Yes Status: Acute (2) Acute renal failure Current Visit: Yes Status: Acute (3) Elevated liver enzymes Current Visit: Yes Status: Acute (4) History of peptic ulcer disease Current Visit: Yes Status: Acute (5) Anemia Current Visit: Yes Status: Acute - Plan CT abdomen pelvis and chest demonstrates lymphadenopathy and splenomegaly. Leukemia or lymphoma not ruled out. Autoimmune induced pancytopenia also a possibility Obtain peripheral blood smear. Hematology consult-Sent message to Dr. Benjamin IV hydration. Empiric IV antibiotics. Follow blood cultures. Monitor CBC.
[2020-02-12 09:24] LABS: Bilirubin Total 1.8 mg/dL (0.2-1.0); C-Reactive Protein 71.9 mg/L (<3.00); Magnesium 2.7 mg/dL (1.8-2.4); Potassium 4.7 mmol/L (3.5-5.1); Protein, Total 5.6 g/dL (6.4-8.2)
--- NOTE | 2020-02-12 09:39 | RAD REPORT ---
EXAM DESCRIPTION: US - Abdomen Exam Complete - 02/12/2020 9:10 am CLINICAL HISTORY: Abdominal pain. Elevated liver fx, pancytopenia, Acute renal failu COMPARISON: No comparisons FINDINGS: The liver is normal in size, shape and echotexture. 3.0 x 1.7 cm hypoechoic lesions are se en left lobe liver likely 2 abutting cysts. No aggressive liver lesion or biliary dilatation. Gallbladder demonstrates no gallstones. Gallbladder wall is upper limit of normal measuring 3 mm. Co mmon bile duct is normal in caliber measuring 5 millimeters. Both kidneys are normal in size, shape and echotexture. No hydronephrosis. [place] cyst measuring 4.2 x 3.0 cm is seen inferior left kidney. Additional 4.8 x 4.7 cm cyst superior left kidney. The spleen is prominent in size measuring 16 cm. The pancreas and aorta are obscured by bowel gas. The visualized aspects of the IVC are grossly normal. IMPRESSION: Hepatic and left renal cysts are present without suspicious or aggressive features. No gallstones are evident. Gallbladder wall is upper limit of normal in thickness measuring 3 mm. Splenomegaly.
--- NOTE | 2020-02-12 09:43 | RAD REPORT ---
EXAM DESCRIPTION: CT - Head Brain Wo Cont - 02/12/2020 9:25 am CLINICAL HISTORY: recent fall, pancytopenia Headache, drowsiness COMPARISON: Head C Spine Mpr Wo Con dated 01/16/2020 TECHNIQUE: All CT scans are performed using dose optimization technique as appropriate and may inclu de automated exposure control or mA/KV adjustment according to patient size. FINDINGS: No intracranial hemorrhage, hydrocephalus or extra-axial fluid collection. Mild brain atro phy No areas of brain edema or evidence of midline shift. Mild mucosal thickening of the left maxillary antrum and left sphenoid sinus. The paranasal sinuses a nd mastoids are otherwise clear. The calvarium is intact. IMPRESSION: No acute intracranial abnormality.
[2020-02-12] MEDS ORDERED: FUROSEMIDE 20 MG/ 2ML VIAL ONE (10:29)
[2020-02-12] MEDS ORDERED: PANTOPRAZOLE 40MG TABLET PO ONE (10:30)
[2020-02-12] MEDS ORDERED: FOLIC ACID 1 MG TABLET ONE (10:30)
[2020-02-12 10:31] LABS: Rheumatoid Factor NEG (NEG)
[2020-02-12 14:47] LABS: RBC Red Blood Cell Count 3.28 M/uL (4.33-5.43)
[2020-02-12 14:51] LABS: Urine Appearance CLOUDY; Urine Bilirubin NEGATIVE (NEG); Urine Blood NEGATIVE (NEG); Urine Color DK YELLOW; Urine Glucose NEGATIVE (NEG); Urine Protein NEGATIVE (NEG); Urine Specific Gravity 1.015 (1.005-1.030); Urine Urobilinogen 0.2 mg/dL (0.2-1.0)
[2020-02-12 15:13] LABS: Urine Microscopic Reflex ORDER UMIC
[2020-02-12 15:29] LABS: Urine Amorphous Sediment 3+ /HPF (NONE SEEN); Urine Bacteria 20-50 /HPF (NONE SEEN); Urine Culture Reflex Order REFLEXED; Urine Mucus 1+ /HPF (NONE SEEN); Urine RBC <5 /HPF (NONE SEEN)
[2020-02-12 15:54] LABS: Ferritin 398.3 ng/mL (26-388); Folic Acid, (Folate) > 20.0 ng/mL (3.1-17.5); Transferrin 98 mg/dL (200-360)
[2020-02-12 17:44] LABS: Hematocrit 29.3 % (39.6-49.0); MPV 11.7 fL (7.6-11.3); RBC Red Blood Cell Count 3.26 M/uL (4.33-5.43)
[2020-02-12 18:13] LABS: Blood Morphology Comment NOT SEEN (NOT SEEN); Platelet Estimate DECR
--- NOTE | 2020-02-12 19:04 | RAD REPORT ---
EXAM DESCRIPTION: CT CHEST, ABDOMEN, PELVIS WITHOUT CONTRAST 02/12/2020 CLINICAL HISTORY: Dyspnea. COMPARISON: None. TECHNIQUE: Axial CT imaging of the chest, abdomen and pelvis performed without intravenous contrast. Reformatted coronal and sagittal images obtained. This exam was performed according to our departmental dose-optimization program which includes automa lana exposure control, adjustment of the mA and/or kV according to patient size and/or use of iterativ e reconstruction technique FINDINGS: CHEST HEART/VESSELS: Heart is normal in size. Moderate aortic atherosclerosis. Mild aneurysm dilatation of the ascending aorta to 4.3 cm. Normal caliber main pulmonary artery. There are moderate coronary art gosia calcifications. MEDIASTINUM AND SHANI: There is a mildly enlarged inferior pretracheal lymph node is 1.3 cm in short axis. Normal central airways. Normal esophagus. LUNGS/PLEURA: There is a small layering pleural effusion present bilaterally, right larger than left. There is bilateral lower lobe subpleural atelectasis. No consolidation or edema. No pneumothorax. CHEST WALL/SOFT TISSUES: Unremarkable thyroid. There are enlarged bilateral axillary lymph nodes. The largest in the right axilla is 3.0 x 1.8 x 1.3 cm. Largest in the left axilla is 2.6 x 1.5 x 2.4 cm. Intact sternum. There is moderate generalized thoracic degenerative change with multilevel Schmorl's nodes. There is an old fracture posterior left rib eight and nine. ABDOMEN: Normal liver size and contour. There is a benign-appearing 3.2 cm cyst anterior left lobe. Normal gal lbladder. The spleen is 19.4 cm. No varices. Pancreatic atrophy. Normal adrenal glands. There are sev eral benign-appearing left renal cysts. The largest is exophytic along the superior cortex, 5.8 cm. T here is an inferior posterior right renal 1.4 cm cyst. There is no renal stone. No hydronephrosis. There is tortuosity of the abdominal aorta with significant atherosclerosis. No aneurysm. Normal infe rior vena cava caliber. No adenopathy. Small hiatal hernia. Unremarkable stomach. Unremarkable small bowel. Normal appendix in the right low er quadrant. Normal colon. No ascites or free air. PELVIS: Normal bladder. Prostatic calcifications are present. No pelvic adenopathy. There is moderate pelvic free fluid. There is no old appearing mild superior endplate compression deformity of L4. Generalized lumbar dege nerative change. Intact bony pelvis. Normal hips. There is mild generalized body wall edema. IMPRESSION: 1. Small layering bilateral pleural effusions. Bilateral lower lobe subpleural atelectas is. 2. Mild nonspecific mediastinal and moderate bilateral axillary lymphadenopathy. Associated splenomeg donavan. Differential includes but is not limited to lymphoma or leukemia. 3. Anterior left hepatic cyst. 4. Bilateral renal cysts. 5. Mild pelvic free fluid. 6. Mild body wall edema. 7. 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 Electronically signed by: Juana Stevenson DO 02/12/2020 12:59 AM CDT Due to temporary technical issues with the PACS/Fluency reporting system, reports are being signed by the in house radiologist without review as a courtesy to ensure prompt reporting. The interpreting r adiologist is fully responsible for the content of the report.
--- NOTE | 2020-02-12 23:28 | CON ---
Reason For Consultation: Patient is seen for pancytopenia. Second Referring Physician: Dr. Efraín Espinoza. History Of Present Illness: Mr. Camacho is a 74-year-old gentleman who presented to the emergency room with complaints of severe fatigue, shortness of breath and a generalized rash. In the emergency room, CBC revealed a white count of 1900 with an absolute neutrophil count of 1000, hemoglobin of 9.9 g/dL, and a platelet count of 28,000. I am consulted for the pancytopenia. He first resented to the ED on January 15 with an acute GI bleed. At that time, his hemoglobin was significantly decreased at 7.4 g/dL. His white count was 13,500 and platelet count was 201,000. He was transferred to [place] for the acute GI bleed and felt that he was told he had an ulcer and was discovered to have the H pylori positive for which he was started on amoxicillin, omeprazole, clarithromycin, and another antibiotic, he was not able to name, which he took for 2 weeks until this past Saturday. He says he first noticed the rash on his torso few days after starting this combination of medications for the H pylori and the rash continued to worsen and spread until 2 days before he finished his antibiotic treatment. The rash is described as itchy. He denies any history of fever during this time or chills or sweats. He has had a 25-pound weight loss since October along with anorexia and intermittent diarrhea. He says he had some swollen glands in his neck, which have since gone down. There is no complaints of cough, shortness of breath, phlegm, or hemoptysis. He has a history of bradycardia and tachycardia, but has not noticed any chest pain or angina. He continues on flecainide prescribed by his game agent, but stopped the blood pressure medication because it was making him dizzy and supposedly interacted with his H pylori medications. He denies abdominal pain, nausea, vomiting, or melena in the past 2 weeks. He denies history of dark black cola-colored urine, hematuria, or dysuria. There is no history of dry eyes, dry mouth, mouth sores or joint swelling and pain. Review of Systems: As noted above. Past Medical History: Significant for: 1. Hypertension. 2. Tachybrady syndrome. 3. Peptic ulcer disease with GI bleed in January of 2020. 4. H pylori positivity. Surgical History: He has no known significant surgical history. Current Medications: Are as follows: Folic acid 1 mg daily, Lasix 20 mg IV b.i.d., pantoprazole 40 mg p.o. daily, thiamine 100 mg p.o. daily. As noted above, he was on flecainide 100 mg p.o. b.i.d., which is being currently held. He also received 1 g of ceftriaxone in the emergency room along with azithromycin 500 mg IV piggyback in the emergency room. Allergies: HE REPORTS NO KNOWN DRUG ALLERGIES. Social And Family History: He lives with his . He is a never smoker. Drinks alcohol socially. He has 2 biological daughters, the youngest one suddenly at the age of 36 with no known etiology. He has a sister who is a year younger than him in good health generally speaking. His parents are . Father in his 80s and mother in her mid 70s. Again, no history of leukemia, lymphoma, or blood issues. 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 Physical Examination: General: Mr. Camacho was resting comfortably in ICU. He reports no pain. General physical examination revealed a pale gentleman who appeared chronically ill. Vital Signs: Revealed temperature of 98 degrees Fahrenheit, pulse was 90, respirations 12, blood pressure 125/66. He was saturating at 99% on room air. Eyes: There is no evidence of icterus. Oral Examination: Revealed no petechiae, purpura, mucositis or thrush. Lymph Node Examination: Revealed less than 1 cm lymph node scattered, palpable on both sides of the neck, in both axillae, but not in the groin area. The rash is morbilliform, involves the entire torso, extremities, and the head. There is no evidence of purpura. Chest: Clear to auscultation with breath sounds reduced at the bases posteriorly. Heart: Sounds revealed a normal S1, S2. No tachycardia or murmurs or gallops were noted. Abdomen: Soft and nontender. Liver was not palpable. Spleen palpable just below the left subcostal margin, nontender. Bowel sounds were present. Neurologic: Mr. Camacho was alert, oriented, does not appear toxic and there is no evidence of meningeal signs or focal deficits. Extremities: Showed 3+ pitting edema of both lower extremities. Laboratory Data: From earlier today revealed that his white count was 1600. Absolute neutrophil count of 1000. Hemoglobin was stable from yesterday at 9.9 g/dL, hematocrit of 30.4 with normal RBC indices. Platelet count was 36,000. A peripheral smear review done today revealed no blasts or abnormal WBC morphology, no evidence of fragmented red blood cells or schistocytes or platelet clumping. Sedimentation rate was elevated at 35. Chemistries have revealed a low sodium of 132. BUN and creatinine have been consistently elevated, it was 52 and 2.07 this morning for an estimated GFR of 38. Total bilirubin was mildly elevated at 1.8 as well as mild elevation of AST of around 66. ALT and alkaline phosphatase were normal today. LDH is elevated at 528. CRP is significantly elevated at 71.9. Of note, his albumin is low at 2.0, globulins have been relatively high at 3.6. PT was 17.1 for an INR of 1.46, PTT was 28. Assessment And Plan: 74-year-old who presents with: 1. Pancytopenia. This is an acute pancytopenia since his CBC from January 2020 revealed no leukopenia or thrombocytopenia. Causes for this acute pancytopenia includes leukemia/lymphoma, drug-induced pancytopenia most likely amoxicillin induced, infectious etiology or microangiopathy-like TTP. Given the smear review, the probability of microangiopathy is considered low. In my opinion, a drug-induced pancytopenia is the most likely possibility, he has completed his course of antibiotics 3 days ago and if his counts improve in the coming days then that would clearly point towards a drug-induced etiology. If his counts do not improve in the coming days, then I would suggest a biopsy of one of the axillary lymph nodes to assess if there is an underlying lymphoma. a. Even though his white count is low, his absolute neutrophil count is 1000, would suggest to use G-CSF or Granix 480 mcg subcu daily if his ANC is less than 1000 and/or if he is febrile or infection is evident. b. Hemoglobin has been steady since admission. I would continue to monitor his hemoglobin and transfuse packed red cells if his hemoglobin is less than 8 g/dL. c. Platelet count is stable for now with no evidence of bleeding. Would continue to monitor the platelet count daily and transfuse platelets if his count is less than 10,000 or if there is evidence of significant bleeding and his platelet count is less than 50,000. 2. Hypoalbuminemia. His albumin is significantly decreased along with elevated globulin, will obtain an SPEP to see if this is monoclonal or polyclonal. I am concerned that he has an underlying inflammatory or immune disorder given the significantly elevated CRP, low albumin, and weight loss. 3. Acute renal failure. It could be due to an allergic reaction to drugs or direct nephrotoxicity. We will defer to Renal for evaluation and treatment. Again, the possibility of inflammatory or autoimmune disorder needs to be considered. We will follow along and as noted above if his counts continued to drop, then would refer to Dr. Patterson for an axillary lymph node biopsy. Thank you for asking me to see him, please do not hesitate to call me if you have any other questions. ZOE/SHADE Voice ID: [id number] Report ID: [id number] MEGAN
[2020-02-13] MEDS: PANTOPRAZOLE 40MG TABLET PO SCH (05:51)
[2020-02-13 06:39] LABS: Albumin 1.8 g/dL (3.4-5.0); Bilirubin Total 3.1 mg/dL (0.2-1.0); Potassium 4.8 mmol/L (3.5-5.1); Thyroid Stimulating Hormone 1.27 uIU/mL (0.360-3.740)
[2020-02-13 07:25] LABS: Absolute Lymphocytes (CBC) 0.5 K/uL (0.7-4.9); Basophils % 2.6 % (0-1.3); Hematocrit 28.5 % (39.6-49.0); Lymphocytes % 21.9 % (15.3-44.8); RBC Red Blood Cell Count 3.19 M/uL (4.33-5.43)
[2020-02-13] MEDS: THIAMINE HCL 100 MG TABLET PO SCH (08:48)
[2020-02-13] MEDS: FOLIC ACID 1 MG TABLET PO SCH (08:49)
[2020-02-13] MEDS: FUROSEMIDE 20 MG/ 2ML VIAL IV SCH ×2 (08:49→16:50)
[2020-02-13] MEDS: CEFTRIAXONE/SWI 1gm 1 GM/10 ML SYR IVP SCH (08:50)
[2020-02-13] MEDS ORDERED: CEFTRIAXONE/SWI 1gm 1 GM/10 ML SYR IV SCH (09:00)
[2020-02-13 11:13] LABS: Anisocytosis 1+; Blood Morphology Comment NOTED (NOT SEEN); Platelet Estimate DECR
[2020-02-13 12:44] LABS: Bilirubin Direct 2.8 mg/dL (0-0.2)
[2020-02-13] MEDS: TBO-FILGRASTIM 480 MCG/0.8 ML SYR SQ SCH (14:37)
--- NOTE | 2020-02-13 16:24 | P.PN ---
Subjective Date of Service: 02/13/20 Chief Complaint: Generalized weakness and fatigue Subjective: Other (Patient appears improved. Less swelling to the lower extremities noted. Patient less fatigued.) Physical Examination - Vital Signs Temperature: 99.0 F Blood Pressure: 107/61 Pulse: 100 Respirations: 16 Pulse Ox (%): 95 - Physical Exam General: Alert, Cooperative HEENT: Atraumatic Neck: Supple Respiratory: Clear to auscultation bilaterally, Normal air movement Cardiovascular: Normal pulses, Regular rate/rhythm Integumentary: Tenderness/swelling (Edema to the lower extremities improved.) Neurological: Normal speech, Normal strength at 5/5 x4 extr, Normal tone - Studies Medications List Reviewed: Yes Assessment & Plan Discharge Plan: Home Plan to discharge in: 48 Hours Physician Review Additional Text: Impression: Fatigue, edema and shortness of breast secondary to bilateral pleural effusions suspect underlying acute on chronic diastolic CHF Pancytopenia with recent diagnosis of H pylori/treated with multi antibiotics likely related to treatment Acute renal failure likely drug induced UTI Hypertension Atrial fibrillation Left hepatic cyst, bilateral renal cyst Mild ascending aortic aneurysm 4.3 cm Plan: Fatigue, edema and shortness of breast secondary to bilateral pleural effusions suspect underlying acute on chronic diastolic CHF: Continue diuresis. Will monitor closely. Case discussed with nephrology. Await echocardiogram. Other complicating factors include pancytopenia, acute renal failure. Will discuss fu rther with nephrology, cardiology and Hematology. Continue to monitor closely. Wean off oxygen. Will recheck chest x-ray tomorrow. If doing better will ambulate. Anticipate home in the next 2-3 days. Pancytopenia with recent diagnosis of H pylori/treated with multi antibiotics likely related to treatment: Patient previously took amoxicillin/Flagyl/clarithromycin. Patient has finish course. Continue with recommendations by Hematology. Patient on Granix. Patient may require platelet transfusion if less than 10,000 or bleeding with platelets less than 50,000. Pa tient may require transfusion if hemoglobin below 7.5. Will monitor closely. Continue to monitor lab. Acute renal failure likely drug induced: Possible underlying chronic renal disease will discuss further with nephrology. Overall improved. Will monitor closely. Continue with diuresis. UTI: Patient on antibiotic therapy. Await urine culture results. Hypertension: Continue to hold Norvasc. Will consider other options if medication required. Atrial fibrillation: Continue medication Left hepatic cyst, bilateral renal cyst: This appears benign. Mild ascending aortic aneurysm 4.3 cm: This can be monitored as an outpatient with Cardiology. Time Spent Managing Pts Care (In Minutes): 55
[2020-02-13] MEDS: FLECAINIDE 100 MG TAB PO SCH (17:58)
--- NOTE | 2020-02-13 20:59 | CON ---
Date of Consultation: 02/12/2020 Reason For Consultation: Atrial fibrillation, possible congestive heart failure. History Of Present Illness: A 74-year-old male who was brought in to the emergency room due to fatig ue and generalized weakness, history of hypertension, anemia, GI bleed, recent EGD at the [facility], presented with significant weakness, shortness of breath that is mild, some lower extremit y edema. No diarrhea. No abdominal pain. He was treated for H pylori recently and hemoglobin was r easonable close to 10. It was thought that he had an atrial fibrillation on the EKG, hence I was con sulted to see the patient. Patient denies having any palpitations. When I evaluated him, he denied even having any significant shortness of breath or orthopnea. Past Medical History: As outlined above in the HPI. Medications: Refer to reconciliation sheet for detailed list. Allergies: NO KNOWN DRUG ALLERGIES. Family History: No premature coronary artery disease or cancer. Social History: Does not smoke or drink. Does not use any drugs. Review of Systems: All systems reviewed and they were negative except for what is mentioned in the HPI. Physical Examination: Vital Signs: Temperature is 97.2, pulse 88, breathing at 18, blood pressure 113/64, saturating 97% o n room air. General: Pleasant elderly male in no apparent distress. Head and Neck: Pupils are equal and reactive to light. Intact eye movements. No JVD. No cervical lymphadenopathy. Neck is supple. Thyroid is not enlarged. Lungs: Clear to auscultation bilaterally. No rhonchi, rales, or crackles. No accessory muscle use. Heart: Regular rate and rhythm. No extra sounds. Abdomen: Soft, nontender. Bowel sounds positive. No organomegaly. . No masses or hernia. No rig idity or rebound. Extremities: No edema, clubbing, or cyanosis. Intact pulses. Skin: No rashes noted. Neurologic: Alert, awake, oriented x3. No acute focal deficits associated. Investigations: Sodium was 132, BUN 52, creatinine was 2.07. NT-proBNP was 3110. EKG is sinus rhyt hm with no atrial fibrillation was detected. dispensary clerk was reviewed and no atrial fibrillati on was detected. Assessment And Plan: 1.Shortness of breath with elevated NT-proBNP. Signs of congestive heart failure. Recommend diures is and obtain echocardiogram to further evaluate the heart structure and do serial sets of cardiac en zymes, rule out myocardial injury. Further plan will be made based on the echo results. 2.Tachycardia. There was no atrial fibrillation on presentation. On review of telemetry, no atrial fibrillation. Patient is in sinus rhythm. We will monitor and recommend to obtain echo as above. Thank you for the courtesy of this consultation. /SHADE Voice ID: [id number] Report ID: [id number]
[2020-02-14 05:55] LABS: Absolute Lymphocytes (CBC) 0.5 K/uL (0.7-4.9); Basophils % 0.7 % (0-1.3); Hematocrit 26.7 % (39.6-49.0); MPV 9.9 fL (7.6-11.3); RBC Red Blood Cell Count 3.06 M/uL (4.33-5.43)
[2020-02-14] MEDS: PANTOPRAZOLE 40MG TABLET PO SCH (06:50)
[2020-02-14] MEDS: THIAMINE HCL 100 MG TABLET PO SCH (08:51)
[2020-02-14] MEDS: CEFTRIAXONE/SWI 1gm 1 GM/10 ML SYR IVP SCH (08:51)
[2020-02-14] MEDS: FOLIC ACID 1 MG TABLET PO SCH (08:52)
[2020-02-14] MEDS: FUROSEMIDE 20 MG/ 2ML VIAL IV SCH (08:52)
[2020-02-14] MEDS: FLECAINIDE 100 MG TAB PO SCH ×2 (08:53→21:00)
--- NOTE | 2020-02-14 09:29 | P.CNS ---
Date of Consult: 02/12/20 Reason for Consult: ASHLY Requesting Physician: rohit tabares Chief Complaint: Generalized weakness and fatigue History of Present Illness: Pt is a 74 y/o male with past medical hx of HTN, Hpylori with hx of GI bleed presenting with complaints of severe weakness. Pt found to be anemic and with an elevated creatinine with baseline of 1.2 ciurrently >2. Pt reports having recently undergone an EGD and getting some antibiotics. Renal is consulted for ASHLY on miuld CKD. Allergies No Known Allergies Allergy (Verified 02/12/20 01:45) Home Medications: Amlodipine [Norvasc] 5 mg PO DAILY 02/12/20 Flecainide [Tambocor] 100 mg PO BID 02/12/20 - Past Medical/Surgical History Diabetic: No -: Hypertension -: H. pylori peptic ulcer -: History of GI bleed -: Endoscopy - Family History Father Medical History: Hypertension - Social History Alcohol use: No CD- Drugs: No Caffeine use: No Place of Residence: Home Review of Systems General: Weakness, Malaise Eyes: Unremarkable ENT: Unremarkable Respiratory: Unremarkable Cardiovascular: Chest Pain Gastrointestinal: Unremarkable Musculoskeletal: Pedal edema Integumentary: Unremarkable Neurological: Unremarkable Physical Examination Temp Pulse Resp BP Pulse Ox 98.0 F 92 H 18 105/88 95 02/14/20 04:00 02/14/20 08:52 02/14/20 04:00 02/14/20 08:52 02/14/20 04:00 General: Alert, In no apparent distress HEENT: Atraumatic, PERRLA, Mucous membr. moist/pink, EOMI, Sclerae nonicteric Neck: Supple, 2+ carotid pulse no bruit, No LAD, Without JVD or thyroid abnorm ality Respiratory: Clear to auscultation bilaterally, Normal air movement Cardiovascular: Edema Gastrointestinal: Normal bowel sounds, Soft and benign Musculoskeletal: No tenderness Integumentary: No rashes Neurological: Normal gait, Normal speech, Normal tone, Normal affect - Problems (1) Acute renal failure Current Visit: Yes Status: Acute (2) Anemia Current Visit: Yes Status: Acute (3) Elevated liver enzymes Current Visit: Yes Status: Acute Conclusions/Impression: PROBLEMS ASHLY most likely 2/2 cardiorenal ASHLY, possible AIN Hypervolemia Severe anemia PLAN Agree with lasix 40mg iv bid Strict i/o Monitor electrolytes and replete Correction of anemia as can cause high output heart failure Anemia management per primary team management Transfuse for hgb <7 Avoid nsaids, acei, CT contrast study. Will continue to follow
[2020-02-14 10:11] LABS: Anisocytosis 1+; Blood Morphology Comment NOTED (NOT SEEN); Platelet Estimate DECR
[2020-02-14 11:27] LABS: Albumin 1.8 g/dL (3.4-5.0); Bilirubin Total 3.6 mg/dL (0.2-1.0); Protein, Total 4.9 g/dL (6.4-8.2)
[2020-02-14] MEDS: TBO-FILGRASTIM 480 MCG/0.8 ML SYR SQ SCH (11:37)
[2020-02-14 12:02] LABS: Magnesium 2.9 mg/dL (1.8-2.4); Potassium 4.9 mmol/L (3.5-5.1)
[2020-02-14 13:10] LABS: Absolute Lymphocytes (CBC) 0.3 K/uL (0.7-4.9); Basophils % 1.5 % (0-1.3); Hematocrit 27.1 % (39.6-49.0); Lymphocytes % 8.8 % (15.3-44.8); MPV 9.4 fL (7.6-11.3); RBC Red Blood Cell Count 3.09 M/uL (4.33-5.43)
[2020-02-14 13:25] LABS: Protime INR 1.47
--- NOTE | 2020-02-14 15:00 | P.PN ---
Subjective Date of Service: 02/14/20 Chief Complaint: Generalized weakness and fatigue Subjective: Improving (but still with fatigue) Physical Examination - Vital Signs Temperature: 98.0 F Blood Pressure: 105/88 Pulse: 92 Respirations: 18 Pulse Ox (%): 95 - Physical Exam General: Alert, Cooperative HEENT: Atraumatic Neck: Supple Respiratory: Clear to auscultation bilaterally, Normal air movement Cardiovascular: Normal pulses, Regular rate/rhythm Gastrointestinal: Normal bowel sounds Integumentary: Tenderness/swelling (improved but still with mild swelling) Neurological: Normal speech, Normal strength at 5/5 x4 extr, Normal tone, Normal affect - Studies Medications List Reviewed: Yes Assessment & Plan Discharge Plan: Home Plan to discharge in: Greater than 2 days Physician Review Additional Text: Impression: Fatigue, edema and shortness of breast secondary to bilateral pleural effusions suspect underlying acute on chronic diastolic CHF Pancytopenia with recent diagnosis of H pylori/treated with multi antibiotics likely related to treatment Acute renal failure likely drug induced Suspected UTI Hypertension Atrial fibrillation Left hepatic cyst, bilateral renal cyst Mild ascending aortic aneurysm 4.3 cm Plan: Fatigue, edema and shortness of breast secondary to bilateral pleural effusions suspect underlying acute on chronic diastolic CHF: Continue diuresis. Will decrease IV Lasix to oral. Continue to monitor closely. Will discuss case further with nephrology. Case discussed with cardiology. No intervention required at this time. Will recheck chest x-ray tomorrow. Await echocardiogram. Pancytopenia slightly improved. Patient may require platelets if less than 10,000 or bleeding is noted. Will need transfusion if hemoglobin below 7.5. Will continue to reassess. Will have physical therapy assess ambulation. Will need to consider skilled placement for rehab or inpatient rehab. Will reassess tomorrow. Pancytopenia with recent diagnosis of H pylori/treated with multi antibiotics likely related to treatment: Patient previously took amoxicillin/Flagyl /clarithromycin. Patient has finish course. Continue with recommendations by Hematology. No need for Granix as absolute neutrophil count improved. Patient may require platelet transfusion if less than 10,000 or bleeding with platelets less than 50,000. Patient may require transfusion if hemoglobin below 7.5. Will monitor closely. Continue to monitor lab. Acute renal failure likely drug induced: Possible underlying chronic renal disease will discuss further with nephrology. Overall improved. Will monitor closely. Continue with diuresis. Suspected UTI: Cultures negative. Will discontinue antibiotic therapy Hypertension: Continue to hold Norvasc. Will consider other options if medication required. Atrial fibrillation: Continue medication Left hepatic cyst, bilateral renal cyst: This appears benign. Mild ascending aortic aneurysm 4.3 cm: This can be monitored as an outpatient with Cardiology. Time Spent Managing Pts Care (In Minutes): 55
[2020-02-14 16:10] LABS: Anisocytosis 1+; Blood Morphology Comment NOTED (NOT SEEN); Platelet Estimate DECR; Poikilocytosis 1+
--- NOTE | 2020-02-14 23:30 | P.PN ---
Subjective Date of Service: 02/13/20 Chief Complaint: Generalized weakness and fatigue Subjective: Improving (Still weak but strength slowly improving) Review of Systems General: Weakness Eyes: Unremarkable ENT: Unremarkable Respiratory: Unremarkable Cardiovascular: Edema (++3) Gastrointestinal: Unremarkable Genitourinary: Unremarkable Musculoskeletal: Unremarkable Integumentary: Unremarkable Neurological: Unremarkable Physical Examination - Vital Signs Temperature: 98.3 F Blood Pressure: 101/59 Pulse: 80 Respirations: 20 Pulse Ox (%): 93 - Physical Exam General: Alert, In no apparent distress, Oriented x3 HEENT: Atraumatic, Normocephalic, PERRLA Neck: Supple Respiratory: Diminished Cardiovascular: Edema Gastrointestinal: Normal bowel sounds, No tenderness Integumentary: No rashes Neurological: Normal speech, Normal tone, Normal affect Lymphatics: No axilla or inguinal lymphadenopathy - Studies Medications List Reviewed: Yes Assessment And Plan - Current Problems (Diagnosis) (1) Acute renal failure Current Visit: Yes Status: Acute (2) Anemia Current Visit: Yes Status: Acute (3) Elevated liver enzymes Current Visit: Yes Status: Acute Physician Review Additional Text: PROBLEMS ASHLY most likely 2/2 cardiorenal ASHLY Hypervolemia Severe anemia PLAN C/w lasix 40mg iv bid Strict i/o Monitor electrolytes and replete Correction of anemia as can cause high output heart failure Anemia management per primary team management Transfuse for hgb <7 Avoid nsaids, acei, CT contrast study. Will continue to follow
--- NOTE | 2020-02-14 23:32 | P.PN ---
Subjective Date of Service: 02/15/20 Chief Complaint: Generalized weakness and fatigue Subjective: No new changes Review of Systems General: Weakness Eyes: Unremarkable ENT: Unremarkable Respiratory: Unremarkable Cardiovascular: Edema Gastrointestinal: Unremarkable Genitourinary: Unremarkable Musculoskeletal: Unremarkable Integumentary: Unremarkable Physical Examination - Vital Signs Temperature: 98.3 F Blood Pressure: 101/59 Pulse: 80 Respirations: 20 Pulse Ox (%): 93 - Physical Exam General: Alert, In no apparent distress HEENT: Atraumatic, PERRLA, EOMI Neck: Supple, JVD not distended Cardiovascular: Regular rate/rhythm, Normal S1 S2, Edema Gastrointestinal: Normal bowel sounds, No tenderness Musculoskeletal: No tenderness Integumentary: No rashes Neurological: Normal speech, Normal tone, Normal affect - Studies Medications List Reviewed: Yes Assessment & Plan - Problems (Diagnosis) (1) Acute renal failure Current Visit: Yes Status: Acute (2) Anemia Current Visit: Yes Status: Acute (3) Elevated liver enzymes Current Visit: Yes Status: Acute Physician Review Additional Text: ASHLY most likely 2/2 cardiorenal ASHLY Hypervolemia Severe anemia PLAN Agree with deescalating diuresis However tommorrow,diurese with lasix 40mg iv bid with albumin Hypoalbuminemia is significant because of poor nutirtion. Recommend nutrition consult. Consider protein boosters Strict i/o Monitor electrolytes and replete Correction of anemia as can cause high output heart failure Anemia management per primary team management Transfuse for hgb <7 Avoid nsaids, acei, CT contrast study
[2020-02-15 05:02] LABS: Absolute Lymphocytes (CBC) 0.5 K/uL (0.7-4.9); Basophils % 1.2 % (0-1.3); Hematocrit 25.5 % (39.6-49.0); Lymphocytes % 12.3 % (15.3-44.8); MPV 9.8 fL (7.6-11.3); RBC Red Blood Cell Count 2.91 M/uL (4.33-5.43)
[2020-02-15 05:19] LABS: Albumin 1.7 g/dL (3.4-5.0); Bilirubin Total 3.4 mg/dL (0.2-1.0); Magnesium 2.9 mg/dL (1.8-2.4); Protein, Total 4.8 g/dL (6.4-8.2)
[2020-02-15] MEDS ORDERED: FUROSEMIDE 40 MG TABLET PO SCH (09:00)
[2020-02-15] MEDS: FOLIC ACID 1 MG TABLET PO SCH (09:25)
[2020-02-15] MEDS: FLECAINIDE 100 MG TAB PO SCH ×2 (09:25→21:00)
[2020-02-15] MEDS: PANTOPRAZOLE 40MG TABLET PO SCH (09:25)
[2020-02-15] MEDS: THIAMINE HCL 100 MG TABLET PO SCH (09:25)
--- NOTE | 2020-02-15 17:49 | P.PN ---
Subjective Date of Service: 02/15/20 Chief Complaint: Generalized weakness and fatigue Subjective: Other (Patient appeared confused early this morning but this afternoon he was much better. Edema still present to the lower extremities.) Physical Examination - Vital Signs Temperature: 98.2 F Blood Pressure: 102/61 Pulse: 80 Respirations: 18 Pulse Ox (%): 96 - Physical Exam General: Alert HEENT: Atraumatic Neck: Supple Respiratory: Clear to auscultation bilaterally Cardiovascular: Normal pulses, Regular rate/rhythm Gastrointestinal: Normal bowel sounds Integumentary: Tenderness/swelling (Edema to the lower extremities 1 to 2+ pitting edema) Neurological: Normal speech, Normal strength at 5/5 x4 extr, Normal tone, Normal affect - Studies Medications List Reviewed: Yes Assessment & Plan Discharge Plan: Home Plan to discharge in: Greater than 2 days Physician Review Additional Text: Impression: Fatigue, edema and shortness of breath secondary to bilateral pleural effusions suspect underlying acute on chronic diastolic CHF Pancytopenia with recent diagnosis of H pylori/treated with multi antibiotics likely related to treatment Acute renal failure likely drug induced Suspected UTI Hypertension Atrial fibrillation Left hepatic cyst, bilateral renal cyst Mild ascending aortic aneurysm 4.3 cm Suspect underlying liver cirrhosis with noted splenomegaly Plan: Fatigue, edema and shortness of breath secondary to bilateral pleural effusions suspect underlying acute on chronic diastolic CHF: Continue diuresis. Case discussed with hematology, GI, Renal, and Cardiology. Await echocardiogram. Renal and GI suspect drug reaction. Will continue to monitor and address. Patient likely with underlying liver disease is well. Will discuss further with GI. Encourage ambulation. Patient will likely require skilled placement. Pancytopenia with recent diagnosis of H pylori/treated with multi antibiotics likely related to treatment: Suspect drug reaction. Will discuss further with Hematology. Continue to monitor CBC. Acute renal failure likely drug induced: Case discussed with nephrology. Nephrology plans to had of be man with Lasix. Suspected UTI: Cultures negative. Antibiotic discontinued Hypertension: Continue to hold blood pressure medication Atrial fibrillation: Continue flecainide. Left hepatic cyst, bilateral renal cyst: This appears benign. Mild ascending aortic aneurysm 4.3 cm: This can be monitored as an outpatient with Cardiology. Suspect underlying liver cirrhosis with noted splenomegaly: Will discuss further with GI. Time Spent Managing Pts Care (In Minutes): 55
[2020-02-15] MEDS: ALBUMIN HUMAN 25% 12.5 GM, FUROSEMIDE 100 MG in NA CHLORIDE 0.9% 40 ML IV SCH ×2 (19:22→23:51)
[2020-02-15] MEDS ORDERED: LACTULOSE 20 GM/30 ML UCUP PO SCH (21:00)
[2020-02-15] MEDS: ENSURE ENLIVE 237 ML CAN PO SCH (21:00)
--- NOTE | 2020-02-15 21:04 | PN ---
Date of Progress Note: 02/15/2020 Subjective: Mr. Camacho was sitting up in bed, working with the physical therapist when I walked in. He complains of significant fatigue. He denies any pain or discomfort, continues to have significant swelling of his legs. Objective: Vital Signs: He has been afebrile. Temperature was 97.9 at noon today, pulse 86, respirations 18, blood pressure 106/54, saturating around 96% to 99% on room air. General: Reveals generalized anasarca and pallor. There is no evidence of petechiae. He continues to have the rash on his torso and extremities, which is fading and does not appear to be hemorrhagic. Lymph Node: Unchanged with bilateral cervical lymph nodes and bilateral axillary adenopathy. Chest: Reveals reduced breath sounds at the bases posteriorly. No rhonchi, rales, rhonchi, or bronchial breathing was heard. Heart: Sounds reveal normal S1, S2. No gallops or murmurs. Abdomen: Reveals significant abdominal and presacral edema. No evidence of ascites. Bowel sounds are present. Neurologic: He seemed somnolent and I did note asterixis today. Extremities: Show 3 to 4+ pitting edema. Laboratory Data: White count this morning was 4300 with an absolute neutrophil count of 3300, hemoglobin was 8.6, hematocrit 25.5, platelet count was 20,000. Sedimentation rate yesterday was still elevated at 45. PT, INR remained elevated at 17.2 and 1.47 respectively. Chemistries continued to show renal failure. His total bilirubin was 3.4. AST is mildly elevated at 60 with normal ALT and alkaline phosphatase. Albumin is significantly reduced at 1.7 g/dL. Assessment And Plan: 1. Pancytopenia. His white count responded to G-CSF and has normalized with a normal neutrophil count. Hemoglobin remains stable; however, platelet count has leveled off at around 20,000. I suspect he has significant liver disease and hepatocellular failure and platelet count could be decreased as a result of hypersplenism, inflammation and/or systemic infection. No need for platelet transfusion or red cell transfusion at this time. My bigger concern with him today is the real possibility of liver failure and renal failure. 2. Jaundice. He has a direct hyperbilirubinemia with significantly decreased albumin and elevated PT and splenomegaly, which indicates that he could have serious chronic liver disease. He was encephalopathic on examination today, and I did discuss with Dr. Espinoza about getting a GI consult. I have also requested records from [facility] about his GI workup to see if there was any evidence of varices to suggest portal hypertension and chronic liver disease as well. We will defer to GI and primary team for management of liver disease. 3. Renal failure. It appears likely that this could be from compartment syndrome. Drug-induced hypersensitivity reaction causing nephritis is a possibility; however, it should have been improving since he has been off the offending medications for the past week. We will defer to Renal regarding management of the renal failure. AP/MODL Voice ID: [id number] Report ID: [id number] ADDENDUM; Discussed case at length with Dr Espinoza and Dr Oconnell. 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 Will consult Dr Patterson for LN and skin biopsy JOSÉ MIGUEL Plan to start on Prednisone for DRESS syndrome after that. [facility]ITAL[facility]
[2020-02-16] MEDS ORDERED: ALBUMIN HUMAN 25% 100 ML IV SCH (01:00)
[2020-02-16 04:02] LABS: Absolute Lymphocytes (CBC) 0.5 K/uL (0.7-4.9); Basophils % 0.6 % (0-1.3); Hematocrit 26.6 % (39.6-49.0); Lymphocytes % 14.2 % (15.3-44.8); MPV 9.3 fL (7.6-11.3); RBC Red Blood Cell Count 3.02 M/uL (4.33-5.43)
[2020-02-16 04:19] LABS: Bilirubin Total 3.6 mg/dL (0.2-1.0); Magnesium 2.8 mg/dL (1.8-2.4); Potassium 4.4 mmol/L (3.5-5.1); Protein, Total 5.1 g/dL (6.4-8.2)
[2020-02-16] MEDS: ALBUMIN HUMAN 25% 12.5 GM, FUROSEMIDE 100 MG in NA CHLORIDE 0.9% 40 ML IV SCH ×3 (04:30→15:00)
[2020-02-16 05:16] LABS: Blood Morphology Comment NOTED (NOT SEEN); Platelet Estimate DECR; Polychromasia 1+; White Blood Cell Scan OK
[2020-02-16] MEDS: PANTOPRAZOLE 40MG TABLET PO SCH (05:31)
--- NOTE | 2020-02-16 08:10 | ECHO ---
HEIGHT: 6 ft 0 in WEIGHT: 217 lb 4.8 oz DATE OF STUDY: 02/12/[address]: Efraín Espinoza DO 2-DIMENSIONAL: YES M.MODE: YES DOPPLER: YES COLOR FLOW: YES TDS: NO PORTABLE: YES DEFINITY: NO BUBBLE STUDY: NO DIAGNOSIS: ATRIAL FIBRILLATION, SUSPECT CONGESTIVE HEART FAILURE CARDIAC HISTORY: CATHERIZATION: NO SURGERY: NO PROSTHETIC VALVE: NO PACEMAKER: NO MEASUREMENTS (cm) DIASTOLIC (NORMALS) SYSTOLIC (NORMALS) IVSd 1.1 (0.6-1.2) LA Diam 2.7 (1.9-4.0) LVEF 62% LVIDd 3.2 (3.5-5.7) LVIDs 2.1 (2.0-3.5) %FS 32% LVPWd 1.0 (0.6-1.2) Ao Diam 3.0 (2.0-3.7) 2 DIMENSIONAL ASSESSMENT: RIGHT ATRIUM: NORMAL LEFT ATRIUM: NORMAL RIGHT VENTRICLE: NORMAL LEFT VENTRICLE: TRICUSPID VALVE: NORMAL MITRAL VALVE: MILD MITRAL ANNULAR CALCIFICATION PULMONIC VALVE: NOT WELL SEEN AORTIC VALVE: NO AORTIC STENOSIS PERICARDIAL EFFUSION: NONE AORTIC ROOT: NORMAL LEFT VENTRICULAR WALL MOTION: VERY POOR WINDOWS, RECOMMEND CONTRAST FOR BETTER EVALUATION. DOPPLER/COLOR FLOW: AORTIC INSUFFICIENCY. COMMENTS: POOR WINDOWS, LEFT VENTRICULAR EJECTION FRACTION APPEARS TO BE AT LOW NORMAL RANGE. RECOMMEND CONTRAST FOCUSED STUDY FOR BETTER EVALUATION. MILD AORTIC INSUFFICIENCY, AND MILD AORTIC VALVE SCLEROSIS, NO AORTIC STENOSIS. TECHNOLOGIST: FEDE BROWN
[2020-02-16] MEDS: FLECAINIDE 100 MG TAB PO SCH ×2 (08:55→21:00)
[2020-02-16] MEDS: ENSURE ENLIVE 237 ML CAN PO SCH ×2 (08:55→21:00)
[2020-02-16] MEDS: THIAMINE HCL 100 MG TABLET PO SCH (08:55)
[2020-02-16] MEDS: FOLIC ACID 1 MG TABLET PO SCH (08:55)
[2020-02-16 10:12] LABS: Protime INR 1.38
[2020-02-16] MEDS ORDERED: NA CHLORIDE 0.9% 1,000 ML ONE (10:19)
[2020-02-16] MEDS ORDERED: propofoL 200 MG/20 ML VIAL IV ONE (10:28)
[2020-02-16] MEDS ORDERED: LIDOCAINE 1% MPF 5 ML VIAL ONE (10:28)
[2020-02-16] MEDS ORDERED: FENTANYL CITR 100 MCG/2 ML ONE (10:28)
[2020-02-16] MEDS ORDERED: LIDOCAINE 1% MPF 30 ML VIAL ONE (10:32)
[2020-02-16] MEDS ORDERED: CEFAZOLIN/SWI 1gm 1 GM/10 ML SYR ONE (10:39)
[2020-02-16] MEDS ORDERED: NA CHLORIDE 0.9% 100 ML IV ONE (10:46)
[2020-02-16] MEDS ORDERED: EPHEDRINE SULF 50 MG/ML VIAL ONE (11:15)
[2020-02-16] MEDS ORDERED: NS 0.9% VIAL 10 ML ONE (11:15)
[2020-02-16] MEDS ORDERED: dexAMETHasone 10 MG/ML VIAL ONE (11:17)
--- NOTE | 2020-02-16 11:44 | P.OP ---
Sample Coordinator: Leida WHITTINGTON Preoperative diagnosis: Pancytopenia, Lymphadenopathy, ARF, Liver failure, Rash Postoperative diagnosis: Same Primary procedure: Right Axillary LN Excision, Bx Skin Rash Anesthesia: General Estimated blood loss: min Specimen: Skin Rash, Lymph Node Findings: as above Complications: None Transferred to: Recovery Room Condition: Good
[2020-02-16] MEDS ORDERED: METHYLPREDNISOLONE 125 MG INJ IV ONE ×2 (12:00→18:48)
[2020-02-16] MEDS ORDERED: ONDANSETRON 4 MG/2 ML VIAL ONE (12:01)
--- NOTE | 2020-02-16 12:09 | EKG ---
Test Date: 2020-02-16 Test Time: 10:03:49 Pipe Bowls Paint Trimmer: FORREST MEASUREMENT RESULTS: Intervals: Rate: 87 PA: 240 QRSD: 98 QT: 434 QTc: 522 [place]: P: 85 PA: 240 QRS: 50 T: 67 INTERPRETIVE STATEMENTS: Sinus rhythm with 1st degree AV block with premature atrial complexes with aberrant conduction Low voltage QRS Prolonged QT Abnormal ECG Compared to ECG 02/11/2020 20:04:33 Atrial premature complex(es) now present Aberrant conduction of supraventricular beat(s) now present Ventricular premature complex(es) no longer present Electronically Signed On 02-16-20 12:09:25 CDT by David Marin
[2020-02-16] MEDS ORDERED: HYDROMORPHONE HCL 1 MG/ML INJ IV PRN (12:29)
--- NOTE | 2020-02-16 13:04 | PREOPCON ---
Date of Consultation: 02/15/2020 Reason For Consultation: The patient needs a lymph node biopsy and skin biopsy. History Of Present Illness: The patient is a 74-year-old gentleman, who presented to the emergency r oom on the tenth with weakness and malaise, workup revealed pancytopenia, lymphadenopathy in the axil la, liver failure, renal failure. The patient had an EGD done a couple of weeks ago, was treated for H pylori. This all started after that. 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 I w as asked to evaluate the patient for a lymph node biopsy as well as skin biopsy. He is awake and jacinda rt. No complaint. No sore throat, runny nose, cough, headaches, or dizziness. No chest pain. No c urrent fever or chills. Review of Systems: Otherwise unremarkable. Past Medical History: Significant for hypertension, H pylori, peptic ulcer history, GI bleed. Past Surgical History: Endoscopy. Allergies: NO ALLERGIES. Social History: The patient does not smoke. Drinks occasionally. Family History: No family history of leukemia or lymphoma or blood disorders. Physical Examination: Vital Signs: Currently is stable. He is afebrile. General: Awake, alert, and oriented x3. Head and Neck: Cranial nerves 2 through 12 grossly within normal limits. No neck masses. No JVD. Throat clear. Neck is supple. Chest: Clear. Heart: S1 and S2. Abdomen: Soft. Extremities: Neurovascular intact. Neuro: Nonfocal. Skin: On the axilla there is enlarged lymph node, right axilla greater than left, approximately 3 cm in size. Laboratory Data: White count is 3.3, H and H is 9 and 26.6, platelets are 15,000. Sedimentation rat e is 45. INR is 1.38. Chemistry shows BUN of 63, creatinine of 2.14. Direct bilirubin is 3.6, staci line phosphatase is 174. C-reactive protein is 62.3, procalcitonin is 0.91. CT of the chest, abdome n and pelvis reviewed with the radiologist shows small area bilateral pleural effusions, bilateral lo wer lobe subpleural atelectasis, mild nonspecific mediastinal and moderate bilateral axillary lymphad enopathy, associated splenomegaly, differential include but not limited to, lymphoma or leukemia, ant erior left hepatic cyst, bilateral renal cyst, mild pelvic free fluid, mild body wall edema. Mild as cending aortic aneurysm 4.3 cm. Assessment: A 74-year-old gentleman with multiple medical problems, currently with pancytopenia, lym phadenopathy, renal and liver failure. Recommendations: The patient will require platelet infusion following which we will proceed with rig ht axillary lymph node biopsy as well as a biopsy of this skin rash which is close to it. The patien t understands the risks, benefits, and alternatives, and agrees to procedure. VANESSA/MODAyla Voice ID: [id number] Report ID: [id number]
[2020-02-16] MEDS ORDERED: NA CHLORIDE 0.9% 250 ML ONE ×2 (16:03→16:54)
[2020-02-16] MEDS ORDERED: DIGOXIN 0.25 MG/ML AMP IV ONE (17:00)
[2020-02-16] MEDS ORDERED: ALBUMIN HUMAN 25% 100 ML IV ONE (17:00)
--- NOTE | 2020-02-16 18:59 | P.PN ---
Subjective Date of Service: 02/16/20 Chief Complaint: Generalized weakness and fatigue Subjective: Other (Patient had elevated heart rate after surgery. Patient in AFib.) Physical Examination - Vital Signs Temperature: 97.5 F Blood Pressure: 110/70 Pulse: 88 Respirations: 20 Pulse Ox (%): 96 - Physical Exam General: Alert, Cooperative HEENT: Atraumatic Neck: Supple Respiratory: Clear to auscultation bilaterally Cardiovascular: Irregular heart rate/rhythm (AFib) Integumentary: Tenderness/swelling (Still with swelling to the extremities) Neurological: Normal speech - Studies Medications List Reviewed: Yes Assessment & Plan Discharge Plan: Home Plan to discharge in: Greater than 2 days Physician Review Additional Text: Impression: Fatigue, edema and shortness of breath secondary to bilateral pleural effusions suspect underlying acute on chronic diastolic CHF Pancytopenia with recent diagnosis of H pylori/treated with multi antibiotics likely related to treatment Acute renal failure likely drug induced Suspected UTI Hypertension Atrial fibrillation Left hepatic cyst, bilateral renal cyst Mild ascending aortic aneurysm 4.3 cm Suspect underlying liver cirrhosis with noted splenomegaly Plan: Fatigue, edema and shortness of breath secondary to bilateral pleural effusions suspect underlying acute on chronic diastolic CHF: Suspect drug reaction. Spoke at length with hematology, GI, nephrology and cardiology. Patient will have biopsy by surgery. Patient had episode of atrial fibrillation. Flecainide were restarted. Will start IV steroids x1 today day and continue orally. Patient required fluid bolus with albumin. Will monitor blood pressure closely. Patient may require digoxin if heart rate increases. Patient not able the tolerate beta-veronika, Betapace or amiodarone due to current multiple organ system issues. Continue to monitor closely. Pancytopenia with recent diagnosis of H pylori/treated with multi antibiotics likely related to treatment: Suspect drug reaction. Will discuss further with Hematology. Continue to monitor CBC. Acute renal failure likely drug induced: Case discussed with nephrology. Nephrology plans to had of be man with Lasix. Suspected UTI: Cultures negative. Antibiotic discontinued Hypertension: Continue to hold blood pressure medication Atrial fibrillation: Continue flecainide. Left hepatic cyst, bilateral renal cyst: This appears benign. Mild ascending aortic aneurysm 4.3 cm: This can be monitored as an outpatient with Cardiology. Suspect underlying liver cirrhosis with noted splenomegaly: Will discuss further with GI. Time Spent Managing Pts Care (In Minutes): 55
[2020-02-16] MEDS: predniSONE 20 MG TAB PO SCH (21:23)
--- NOTE | 2020-02-16 23:59 | OP ---
Date of Procedure: 02/16/2020 Surgeon: Romaine Patterson MD Engine Lathe Set Up Operator: PK Looney Preoperative Diagnoses: 1.Pancytopenia. 2.Lymphadenopathy. 3.Renal failure. 4.Liver failure. 5.Rule out Zurita-Arnoldo syndrome. Postoperative Diagnoses: 1.Pancytopenia. 2.Lymphadenopathy. 3.Renal failure. 4.Liver failure. 5.Rule out Zurita-Arnoldo syndrome. Procedure Performed: Full-thickness skin biopsy of the right shoulder and excision of right axillary lymph node, deep. Estimated Blood Loss: Minimal. Specimens: Lymph node, which is enlarged and skin biopsy. Findings: As above. Anesthesia: General. Complications: None. Disposition: The patient tolerated the procedure in stable condition, taken to Recovery in good gene ral condition. Procedure In Detail: After the patient received platelets because of his thrombocytopenia, the patie nt was brought to the OR, and then prepped and draped in usual sterile fashion. Marcaine 0.5% infilt rated locally. A 15 blade was used to make a 1 x 0.5 cm incision to excise the skin rash that was pr esent in the right shoulder and then wound irrigated, bleeding controlled with cautery, flaps created , and 3-0 chromic used to approximate the subcutaneous tissue and close the skin. Sterile dressing a pplied. Then, a 4 cm incision was made in the right axilla. Subcutaneous tissue was divided. Deep to the subcutaneous tissue, an enlarged lymph node identified and excised. Vascular clips used as ne eded. Bleeding controlled with cautery and the lymph node sent fresh to Pathology. Wound irrigated and bleeding controlled with cautery. 3-0 chromic used to approximate deep subcutaneous tissue and c lose skin as well. Sterile dressing was applied. The patient was awakened and taken to Recovery in good general condition. /MODL Voice ID: [id number] Report ID: [id number]
[2020-02-17 04:49] LABS: Absolute Lymphocytes (CBC) 0.5 K/uL (0.7-4.9); Basophils % 0.6 % (0-1.3); Hematocrit 21.3 % (39.6-49.0); MPV 8.8 fL (7.6-11.3); RBC Red Blood Cell Count 2.43 M/uL (4.33-5.43)
[2020-02-17 04:57] LABS: Protime INR 1.43
[2020-02-17 05:06] LABS: Albumin 2.3 g/dL (3.4-5.0); Bilirubin Total 3.4 mg/dL (0.2-1.0); Magnesium 2.9 mg/dL (1.8-2.4); Potassium 4.3 mmol/L (3.5-5.1); Protein, Total 4.9 g/dL (6.4-8.2)
[2020-02-17] MEDS: PANTOPRAZOLE 40MG TABLET PO SCH (05:47)
--- NOTE | 2020-02-17 07:00 | P.PN ---
Subjective Date of Service: 02/17/20 Chief Complaint: Generalized weakness and fatigue Pt more fatigued. Scheduled for biopsy of axillary lymph nodes. Went into afib with rvr. Got bolus fluids and digoxin Review of Systems General: Weakness Eyes: Unremarkable ENT: Unremarkable Respiratory: Unremarkable Cardiovascular: Palpitations, Edema Gastrointestinal: Unremarkable Genitourinary: Unremarkable Musculoskeletal: Pedal edema, Unremarkable Neurological: Weakness Physical Examination - Vital Signs Temperature: 97.8 F Blood Pressure: 101/64 Pulse: 79 Respirations: 18 Pulse Ox (%): 96 - Physical Exam General: Alert, Oriented x3 HEENT: Atraumatic, PERRLA, EOMI Neck: Supple, JVD not distended Respiratory: Clear to auscultation bilaterally Cardiovascular: Edema Neurological: Normal speech, Normal tone, Normal affect - Studies Microbiology Data (last 24 hrs): 02/11/20 23:25 Blood - Blood Aerobic Blood Culture - Final No growth in 5 days. 02/11/20 23:25 Blood - Blood Anaerobic Blood Culture - Final No growth in 5 days. 02/11/20 23:17 Blood - Blood Aerobic Blood Culture - Final No growth in 5 days. 02/11/20 23:17 Blood - Blood Anaerobic Blood Culture - Final No growth in 5 days. Medications List Reviewed: Yes Assessment & Plan - Problems (Diagnosis) (1) Acute renal failure Current Visit: Yes Status: Acute (2) Anemia Current Visit: Yes Status: Acute (3) Elevated liver enzymes Current Visit: Yes Status: Acute Physician Review Additional Text: PROBLEM ASHLY most likely 2/2 cardiorenal ASHLY, N Suspect pt may have DRESS syndrome from antibiotics. or ALLERGIC RXN CHF Chronic liver failure Hypotension Severe anemia s/p axillary lymphnode biopsy PLAN Will hold albumin lasix combo Hypoalbuminemia is significant from liver failure and malnutrition Bolus albumin and normal saline Agree with stress solumedrol of 120mg x1, and prednisone 60mg which can be tapered. Anemia management per primary team management Transfuse for hgb <7 Avoid nsaids, acei, CT contrast study
--- NOTE | 2020-02-17 07:17 | P.PN ---
Subjective Date of Service: 02/16/20 Chief Complaint: Generalized weakness and fatigue Pt still fatigued. Review of Systems General: Weakness Eyes: Unremarkable ENT: Unremarkable Respiratory: Unremarkable Cardiovascular: Unremarkable Gastrointestinal: Unremarkable Genitourinary: Unremarkable Physical Examination - Vital Signs Temperature: 97.8 F Blood Pressure: 101/64 Pulse: 79 Respirations: 18 Pulse Ox (%): 96 - Physical Exam General: Alert, Oriented x3 HEENT: Atraumatic Respiratory: Clear to auscultation bilaterally, Normal air movement Cardiovascular: Regular rate/rhythm, Normal S1 S2 Gastrointestinal: Normal bowel sounds, No tenderness Musculoskeletal: No tenderness Integumentary: No rashes - Studies Microbiology Data (last 24 hrs): 02/11/20 23:25 Blood - Blood Aerobic Blood Culture - Final No growth in 5 days. 02/11/20 23:25 Blood - Blood Anaerobic Blood Culture - Final No growth in 5 days. 02/11/20 23:17 Blood - Blood Aerobic Blood Culture - Final No growth in 5 days. 02/11/20 23:17 Blood - Blood Anaerobic Blood Culture - Final No growth in 5 days. Medications List Reviewed: Yes Assessment & Plan - Problems (Diagnosis) (1) Acute renal failure Current Visit: Yes Status: Acute (2) Anemia Current Visit: Yes Status: Acute (3) Elevated liver enzymes Current Visit: Yes Status: Acute Physician Review Additional Text: PROBLEM ASHLY most likely 2/2 cardiorenal ASHLY, N CHF suspected. Echo pending Chronic liver failure Hypotension Severe anemia PLAN Will start on lasix/albumin gtt. Strict i/o Transfuse for hgb <7 Avoid nsaids, acei, CT contrast study
--- NOTE | 2020-02-17 07:47 | EKG ---
Test Date: 2020-02-16 Test Time: 13:02:21 Superintendent Recreation: FORREST MEASUREMENT RESULTS: Intervals: Rate: 112 IA: QRSD: 116 QT: 394 QTc: 537 [place]: P: IA: QRS: 45 T: 234 INTERPRETIVE STATEMENTS: Atrial fibrillation with rapid ventricular response with premature ventricular or aberrantly conducted complexes ST & T wave abnormality, consider inferior ischemia or digitalis effect Abnormal ECG Compared to ECG 02/16/2020 10:03:49 Ventricular premature complex(es) now present ST (T wave) deviation now present Possible ischemia now present Sinus rhythm no longer present Atrial premature complex(es) no longer present First degree AV block no longer present Aberrant conduction of supraventricular beat(s) no longer present Prolonged QT interval no longer present Electronically Signed On 02-17-20 07:44:38 CDT by David Marin
[2020-02-17] MEDS: ENSURE ENLIVE 237 ML CAN PO SCH ×2 (09:00→21:00)
[2020-02-17 09:09] LABS: Hematocrit 24.7 % (39.6-49.0); MPV 9.2 fL (7.6-11.3); RBC Red Blood Cell Count 2.82 M/uL (4.33-5.43)
[2020-02-17] MEDS: THIAMINE HCL 100 MG TABLET PO SCH (09:31)
[2020-02-17] MEDS: FOLIC ACID 1 MG TABLET PO SCH (09:31)
[2020-02-17] MEDS: FUROSEMIDE 20 MG/ 2ML VIAL IV SCH (09:32)
[2020-02-17] MEDS: FLECAINIDE 100 MG TAB PO SCH ×2 (09:32→21:16)
[2020-02-17] MEDS: predniSONE 20 MG TAB PO SCH ×2 (09:32→21:16)
[2020-02-17] MEDS: TBO-FILGRASTIM 480 MCG/0.8 ML SYR SQ SCH (09:32)
[2020-02-17 10:07] LABS: Anisocytosis SLIGHT; Blood Morphology Comment NOTED (NOT SEEN); Platelet Estimate DECR
--- NOTE | 2020-02-17 11:57 | PN ---
Date of Progress Note: 02/17/2020 Subjective: Patient is awake, alert. No complaint. Vitals are stable. Afebrile. Laboratory Data: His H and H this morning were 7.1 and 21.2, but that were repeated and were 8.2 and 24.7, which are essentially unchanged from preop. His white count is 2.4, platelets are 24,000. Objective: Examination of the dressing reveals it to be clean, dry, and intact. There is no hematom a. There is no bruising around the incision. Assessment: Status post lymph node biopsy and skin biopsy. Recommendation: The patient can be discharged per Medicine once he stabilizes and follow with me as an outpatient for wound check. /MODL Voice ID: [id number] Report ID: [id number]
--- NOTE | 2020-02-17 14:15 | P.PN ---
Subjective Date of Service: 02/17/20 Chief Complaint: Generalized weakness and fatigue Subjective: Improving Physical Examination - Vital Signs Temperature: 97.8 F Blood Pressure: 101/64 Pulse: 79 Respirations: 18 Pulse Ox (%): 96 - Physical Exam General: Alert, Cooperative HEENT: Atraumatic Neck: Supple Respiratory: Clear to auscultation bilaterally, Normal air movement Cardiovascular: Normal pulses, Regular rate/rhythm Gastrointestinal: Normal bowel sounds Integumentary: Tenderness/swelling (Swelling to the lower extremities unchanged) Neurological: Normal speech, Normal strength at 5/5 x4 extr, Normal tone, Normal affect - Studies Microbiology Data (last 24 hrs): 02/11/20 23:25 Blood - Blood Aerobic Blood Culture - Final No growth in 5 days. 02/11/20 23:25 Blood - Blood Anaerobic Blood Culture - Final No growth in 5 days. 02/11/20 23:17 Blood - Blood Aerobic Blood Culture - Final No growth in 5 days. 02/11/20 23:17 Blood - Blood Anaerobic Blood Culture - Final No growth in 5 days. Medications List Reviewed: Yes Assessment & Plan Discharge Plan: Home Plan to discharge in: Greater than 2 days Physician Review Additional Text: Impression: Fatigue, edema and shortness of breath secondary to DRESS syndrome(drug reaction) Pancytopenia likely related to DRESS syndrome Acute renal failure as above Hypertension Atrial fibrillation Left hepatic cyst, bilateral renal cyst Mild ascending aortic aneurysm 4.3 cm Suspect underlying liver cirrhosis with noted splenomegaly Moderate malnutrition and low albumin Plan: Fatigue, edema and shortness of breath secondary to DRESS syndrome(drug reaction): Patient had biopsy done yesterday. Surgery spoke to pathology. There may be some indication of lymphoma. Flow cytometry sent out. Spoke with surgery, Hematology, GI and nephrology yesterday. Steroid treatment initiated. Patient feels better. Continue to monitor closely. White count decreased. Will start Granix. Will consider transfusion if hemoglobin below 7.5. Continue to monitor closely. Will discuss further with specialty care. Anticipate improvement over the next 72 hr. Pancytopenia likely related to DRESS syndrome: Patient started on Granix. Monitor hemoglobin. Patient may require transfusion. Patient given platelet transfusion prior surgery yesterday. Will also monitor this is well. Patient will likely require bone marrow biopsy as an outpatient on less this continues to decline. Acute renal failure as above: Case discussed with nephrology. Nephrology plans continue with albumin/Lasix. Hypertension: Continue to hold blood pressure medication Atrial fibrillation: Continue flecainide. Spoke with cardiology. No need for additional medication. If with accelerated heart rate will consider digoxin. Left hepatic cyst, bilateral renal cyst: This appears benign. Mild ascending aortic aneurysm 4.3 cm: This can be monitored as an outpatient with Cardiology. Suspect underlying liver cirrhosis with noted splenomegaly: Case discussed with GI. Patient likely with chronic liver disease. Will monitor closely. Moderate malnutrition and low albumin: Albumin replaced. Will have dietary make recommendation. Time Spent Managing Pts Care (In Minutes): 55
[2020-02-17] MEDS ORDERED: TRAMADOL HCL 50 MG TAB PO PRN (14:22)
[2020-02-17] MEDS ORDERED: HYDROCODONE/APAP 7.5/325 MG TAB PO PRN (14:22)
[2020-02-17 14:32] LABS: HIV AG/AB 4TH GEN Non-reactive (Non-reactive)
[2020-02-17] MEDS: ALBUMIN HUMAN 25% 100 ML IV SCH ×2 (17:19→23:27)
[2020-02-18 00:09] LABS: Albumin, (SPE) 2.3 g/dL (3.8-4.8); Alpha-1-Globulins 0.5 g/dL (0.2-0.3); Alpha-2-Globulins 0.6 g/dL (0.5-0.9); Gamma Globulins 0.9 g/dL (0.8-1.7); INTERPRETATION REPORT
--- NOTE | 2020-02-18 01:46 | PN ---
Date of Progress Note: 02/17/2020 Mr. Camacho has been seen by Dr. Espinoza and Dr. Conklin because of history of atrial fibrillation. Ther e are other issues going on with him including pancytopenia, thought to be related to some drug react ion. Yesterday, he went back into atrial fibrillation on flecainide and Dr. Espinoza asked me to get i nvolved again in his case. I recommended using digoxin 0.5 mg dose x1. Since then, he remained on f lecainide and he is back in sinus rhythm. No cardiac complaints. He is being followed by multiple p hysicians including Hematology/Oncology. Workup that way is under progress. From a cardiac standpoi nt, I will continue his flecainide. His blood pressure would not tolerate the beta-veronika at this p oint. We will use digoxin again if we have to if he goes back into atrial fibrillation. We will con tinue to follow him. CHARLES/SHADE Voice ID: [id number] Report ID: [id number]
[2020-02-18] MEDS: ALBUMIN HUMAN 25% 100 ML IV SCH ×2 (04:30→15:01)
[2020-02-18 04:34] LABS: HBsAG Nonreactive (Nonreactive)
[2020-02-18] MEDS: PANTOPRAZOLE 40MG TABLET PO SCH (05:33)
[2020-02-18 06:43] VITALS: BMI 29.8
--- NOTE | 2020-02-18 07:12 | P.PN ---
Subjective Date of Service: 02/17/20 Chief Complaint: Generalized weakness and fatigue Clinically improved. Better energy level. Review of Systems 10-point ROS is otherwise unremarkable (Pt reports improved energy level. Denies any chest pain, sob, nausea, vomiting, cramping.) Physical Examination - Vital Signs Temperature: 97.5 F Blood Pressure: 123/73 Pulse: 79 Respirations: 16 Pulse Ox (%): 98 - Physical Exam General: Alert, In no apparent distress HEENT: Atraumatic, PERRLA, EOMI Neck: Supple, JVD not distended Respiratory: Clear to auscultation bilaterally, Normal air movement Cardiovascular: Normal S1 S2, Edema Capillary refill: <2 Seconds Gastrointestinal: Normal bowel sounds - Studies Medications List Reviewed: Yes Assessment & Plan - Problems (Diagnosis) (1) Acute renal failure Current Visit: Yes Status: Acute (2) Anemia Current Visit: Yes Status: Acute (3) Elevated liver enzymes Current Visit: Yes Status: Acute Physician Review Additional Text: PROBLEM ASHLY most likely 2/2 cardiorenal ASHLY; improved post albumin Suspect pt may have DRESS syndrome from antibiotics. or ALLERGIC RXN CHF Chronic liver failure Hypotension Severe anemia s/p axillary lymph node biopsy Pancytopenia PLAN Albumin q 6h. lasix 20mg iv daily Hypoalbuminemia is significant from liver failure and malnutrition S/P stress solumedrol of 120mg x1, and prednisone 60mg which can be tapered. Anemia management per primary team management Check for parvovirus. Transfuse for hgb <7 Avoid nsaids, acei, CT contrast study
[2020-02-18 07:26] LABS: Absolute Lymphocytes (CBC) 0.3 K/uL (0.7-4.9); Basophils % 0.8 % (0-1.3); Lymphocytes % 9.9 % (15.3-44.8); MPV 9.1 fL (7.6-11.3); RBC Red Blood Cell Count 2.35 M/uL (4.33-5.43)
[2020-02-18 07:31] LABS: Protime INR 1.36
[2020-02-18 07:32] LABS: Hematocrit 20.6 % (39.6-49.0)
[2020-02-18 07:47] LABS: Bilirubin Total 3.2 mg/dL (0.2-1.0); Magnesium 3.1 mg/dL (1.8-2.4); Potassium 4.3 mmol/L (3.5-5.1); Protein, Total 5.4 g/dL (6.4-8.2)
[2020-02-18] MEDS: ENSURE ENLIVE 237 ML CAN PO SCH ×2 (09:00→21:29)
[2020-02-18] MEDS: predniSONE 20 MG TAB PO SCH ×2 (09:33→21:29)
[2020-02-18] MEDS: FLECAINIDE 100 MG TAB PO SCH ×2 (09:35→21:29)
[2020-02-18] MEDS: THIAMINE HCL 100 MG TABLET PO SCH (09:35)
[2020-02-18] MEDS: FUROSEMIDE 20 MG/ 2ML VIAL IV SCH (09:35)
[2020-02-18] MEDS: FOLIC ACID 1 MG TABLET PO SCH (09:35)
[2020-02-18] MEDS: TBO-FILGRASTIM 480 MCG/0.8 ML SYR SQ SCH (09:36)
[2020-02-18] MEDS ORDERED: NA CHLORIDE 0.9% 500 ML ONE (10:44)
[2020-02-18 11:05] LABS: RBC Red Blood Cell Count 2.35 M/uL (4.33-5.43)
[2020-02-18 11:10] LABS: Bilirubin Direct 2.1 mg/dL (0-0.2); Ferritin 340.7 ng/mL (26-388)
[2020-02-18] MEDS ORDERED: FUROSEMIDE 20 MG/ 2ML VIAL IV ONE (15:00)
--- NOTE | 2020-02-18 15:34 | PN ---
Date of Progress Note: 02/18/2020 Subjective: Mr. Camacho has come in with pancytopenia. He had paroxysmal atrial fibrillation. He is on flecainide 100 b.i.d. Forty eight hours ago, he went back to atrial fibrillation with rapid ventr icular response. His flecainide a 100 b.i.d. was continued. He was given digoxin 0.5 mg 1 dose and he has been in normal sinus rhythm since. His other issue remains pancytopenia. His white count is 2.4, hemoglobin is 8.2, platelet count is 24,000. His last creatinine is 1.96. Hematology is follow ing him. I do not have anything to add from a cardiovascular standpoint. I think we need to continu e the flecainide, use IV digoxin as needed if his heart rate increases. We are still hoping that his pancytopenia is a drug reaction, but workup is in progress. I will sign off his case for now. CHARLES/SHADE Voice ID: [id number] Report ID: [id number]
[2020-02-18 16:17] LABS: Hematocrit 23.8 % (39.6-49.0)
--- NOTE | 2020-02-18 16:48 | P.PN ---
Subjective Date of Service: 02/18/20 Chief Complaint: Generalized weakness and fatigue Subjective: Improving (Patient ambulating today. Lower extremity edema improved.) Physical Examination - Vital Signs Temperature: 98 F Blood Pressure: 119/59 Pulse: 80 Respirations: 16 Pulse Ox (%): 98 - Physical Exam General: Alert, Cooperative HEENT: Atraumatic Neck: Supple Respiratory: Clear to auscultation bilaterally, Normal air movement Cardiovascular: Normal pulses, Regular rate/rhythm Integumentary: Tenderness/swelling (Lower extremity edema improved. Patient ambulating.) Neurological: Normal speech, Normal strength at 5/5 x4 extr, Normal tone, Normal affect - Studies Medications List Reviewed: Yes Assessment & Plan Discharge Plan: Home Plan to discharge in: 72 Hours Physician Review Additional Text: Impression: Fatigue, edema and shortness of breath secondary to DRESS syndrome(drug reaction) Pancytopenia likely related to DRESS syndrome Acute renal failure as above Hypertension Atrial fibrillation Left hepatic cyst, bilateral renal cyst Mild ascending aortic aneurysm 4.3 cm Suspect underlying liver cirrhosis with noted splenomegaly Moderate malnutrition and low albumin Plan: Fatigue, edema and shortness of breath secondary to DRESS syndrome(drug reaction): Biopsy still pending. 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 Flow sent telemetry sent out. Will discuss with hematology. Patient continues to improve with albumin/Lasix. Patient also getting prednisone 30 mg 1 pill twice daily. This will be tapered as an outpatient. Hemoglobin low. Will transfuse 1 unit. Maintain hemoglobin above 7.5. Will monitor closely. Will monitor closely. Anticipate improvement over the next 48-72 hr. I will turn the service over to the hospitalist team tomorrow. I will go plan of care with him. Pancytopenia likely related to DRESS syndrome: Discontinue Granix. Hemoglobin low. Will provide 1 unit of blood. Maintain hemoglobin above 7.5. Will monitor this closely. Patient also may require platelet count if this continues to decline. Will monitor closely. Will discuss further with Hematology. Patient will likely require bone marrow biopsy as an outpatient. Acute renal failure as above: Case discussed with nephrology. Nephrology plans continue with albumin/Lasix. No further use of nonsteroidal anti- inflammatories. Future medications will need to be renally dose. Hypertension: Continue to hold blood pressure medication Atrial fibrillation: Continue flecainide. Spoke with cardiology. No need for additional medication. If with accelerated heart rate will consider digoxin. Left hepatic cyst, bilateral renal cyst: This appears benign. Mild ascending aortic aneurysm 4.3 cm: This can be monitored as an outpatient with Cardiology. Suspect underlying liver cirrhosis with noted splenomegaly: Case discussed with GI. Patient likely with chronic liver disease. Will monitor closely. This can be further addressed as an outpatient. Moderate malnutrition and low albumin: Albumin replaced. Will have dietary make recommendation. Time Spent Managing Pts Care (In Minutes): 55
--- NOTE | 2020-02-18 17:39 | P.PN ---
Subjective Date of Service: 02/18/20 Chief Complaint: Generalized weakness and fatigue Clinically improved. Better energy level. Review of Systems General: Unremarkable Eyes: Unremarkable ENT: Unremarkable Respiratory: Unremarkable Cardiovascular: Edema Gastrointestinal: Unremarkable Genitourinary: Unremarkable Musculoskeletal: Unremarkable Integumentary: Unremarkable Physical Examination - Vital Signs Temperature: 98 F Blood Pressure: 119/59 Pulse: 80 Respirations: 16 Pulse Ox (%): 98 - Physical Exam General: Alert, In no apparent distress HEENT: Atraumatic, PERRLA, EOMI Neck: Supple, JVD not distended Cardiovascular: Edema Gastrointestinal: Normal bowel sounds, No tenderness Musculoskeletal: No tenderness Integumentary: No rashes Neurological: Normal speech, Normal tone, Normal affect - Studies Medications List Reviewed: Yes Assessment & Plan - Problems (Diagnosis) (1) Acute renal failure Current Visit: Yes Status: Acute (2) Anemia Current Visit: Yes Status: Acute (3) Elevated liver enzymes Current Visit: Yes Status: Acute Physician Review Additional Text: PROBLEM ASHLY most likely 2/2 cardiorenal ASHLY; improved post albumin Suspect pt may have DRESS syndrome from antibiotics. or ALLERGIC RXN CHF Chronic liver failure Hypotension Severe anemia s/p axillary lymph node biopsy Pancytopenia PLAN Albumin q 6h. lasix 20mg iv daily continue Hypoalbuminemia is significant from liver failure and malnutrition Anemia management per primary team management Check for parvovirus. Transfuse for hgb <7 Avoid nsaids, acei, CT contrast study
[2020-02-19 05:48] LABS: Absolute Lymphocytes (CBC) 0.9 K/uL (0.7-4.9); Basophils % 0.7 % (0-1.3); Hematocrit 24.8 % (39.6-49.0); Lymphocytes % 14.3 % (15.3-44.8); MPV 9.5 fL (7.6-11.3); RBC Red Blood Cell Count 2.83 M/uL (4.33-5.43)
[2020-02-19 05:59] LABS: Albumin 2.8 g/dL (3.4-5.0); Bilirubin Total 2.9 mg/dL (0.2-1.0); Potassium 4.6 mmol/L (3.5-5.1); Protein, Total 5.2 g/dL (6.4-8.2)
[2020-02-19 06:00] LABS: Protime INR 1.23
[2020-02-19] MEDS: PANTOPRAZOLE 40MG TABLET PO SCH (06:23)
[2020-02-19] MEDS: THIAMINE HCL 100 MG TABLET PO SCH (08:48)
[2020-02-19] MEDS: FOLIC ACID 1 MG TABLET PO SCH (08:48)
[2020-02-19] MEDS: predniSONE 20 MG TAB PO SCH ×2 (08:48→20:32)
[2020-02-19] MEDS: ENSURE ENLIVE 237 ML CAN PO SCH ×2 (08:48→20:35)
[2020-02-19] MEDS: FUROSEMIDE 20 MG/ 2ML VIAL IV SCH ×2 (08:49→16:31)
[2020-02-19 09:50] LABS: Anisocytosis SLIGHT; Blood Morphology Comment NOTED (NOT SEEN); Platelet Estimate DECR; White Blood Cell Scan OK
[2020-02-19] MEDS: FLECAINIDE 100 MG TAB PO SCH ×2 (10:19→20:32)
--- NOTE | 2020-02-19 11:31 | P.PN ---
Subjective Date of Service: 02/19/20 Chief Complaint: Generalized weakness and fatigue Subjective: No new changes Review of Systems 10-point ROS is otherwise unremarkable Physical Examination - Vital Signs Temperature: 97.6 F Blood Pressure: 135/61 Pulse: 87 Respirations: 16 Pulse Ox (%): 97 - Physical Exam General: Alert, In no apparent distress HEENT: Atraumatic, Normocephalic Neck: Supple Respiratory: Clear to auscultation bilaterally, Normal air movement Cardiovascular: Regular rate/rhythm, Normal S1 S2, Edema Capillary refill: <2 Seconds Gastrointestinal: Soft and benign, W/out hepatosplenomegaly Musculoskeletal: No swelling, Swelling Integumentary: No rashes Neurological: Other (moves all extremities) Urinary: Other (No bladder distention ) - Studies Laboratory Last Values WBC 1.9 K/uL (4.3-10.9) L* 02/11/20 21:26 RBC 3.35 M/uL (4.33-5.43) L 02/11/20 21:26 Hgb 9.9 g/dL (13.6-17.9) L 02/11/20 21:26 Hct 29.7 % (39.6-49.0) L 02/11/20 21:26 MCV 88.8 fL (80-100) 02/11/20 21:26 MCH 29.5 pg (27.0-35.0) 02/11/20 21:26 MCHC 33.2 g/dL (32.0-36.0) 02/11/20 21:26 RDW 18.8 % (12.1-15.2) H 02/11/20 21:26 Plt Count 28 K/uL (152-406) L* 02/11/20 21:26 MPV 9.9 fL (7.6-11.3) 02/11/20 21:26 Neutrophils % 54.4 % (41.7-73.7) 02/11/20 21:26 Lymphocytes % 29.0 % (15.3-44.8) 02/11/20 21:26 Monocytes % 11.2 % (3.3-12.3) 02/11/20 21:26 Eosinophils % 4.1 % (0-4.4) 02/11/20 21:26 Basophils % 1.3 % (0-1.3) 02/11/20 21:26 Absolute Neutrophils 1.0 K/uL (1.8-8.0) L 02/11/20 21:26 Absolute Lymphocytes 0.6 K/uL (0.7-4.9) L 02/11/20 21:26 Absolute Monocytes 0.2 K/uL (0.1-1.3) 02/11/20 21: Absolute Eosinophils 0.1 K/uL (0-0.5) 02/11/20 21:26 Absolute Basophils 0.0 K/uL (0-0.5) 02/11/20 21:26 Diff Path Review Cancelled 02/11/20 19:49 Polychromasia 2+ 02/11/20 21:26 Anisocytosis 1+ 02/11/20 21:26 Morphology Comment Noted (NOT SEEN) 02/11/20 21:26 PT 18.1 SECONDS (9.5-12.5) H 02/11/20 21:26 INR 1.55 02/11/20 21:26 Sodium 133 mmol/L (136-145) L 02/11/20 20:19 Potassium 5.2 mmol/L (3.5-5.1) H 02/11/20 20:19 Chloride 99 mmol/L (98-107) 02/11/20 20:19 Carbon Dioxide 20 mmol/L (21-32) L 02/11/20 20:19 BUN 45 mg/dL (7-18) H 02/11/20 20:19 Creatinine 2.11 mg/dL (0.55-1.3) H 02/11/20 20:19 Estimated GFR 37 mL/min (=/>90) L 02/11/20 20:19 Glucose 105 mg/dL (74-106) 02/11/20 20:19 Calcium 7.8 mg/dL (8.5-10.1) L 02/11/20 20:19 Magnesium 2.9 mg/dL (1.8-2.4) H D 02/11/20 20:19 Total Bilirubin 2.1 mg/dL (0.2-1.0) H 02/11/20 20:19 Direct Bilirubin 1.3 mg/dL (0-0.2) H 02/11/20 20:19 AST 83 U/L (15-37) H 02/11/20 20:19 ALT 22 U/L (12-78) 02/11/20 20:19 Alkaline Phosphatase 139 U/L (45-117) H 02/11/20 20:19 Rapid Troponin I 0.04 ng/mL (0.0-0.045) 02/11/20 20:19 NT-Pro-B Natriuret Pep 3110 pg/mL (<450) H 02/11/20 20:19 Serum Total Protein 6.5 g/dL (6.4-8.2) 02/11/20 20:19 Albumin 2.3 g/dL (3.4-5.0) L 02/11/20 20: Globulin 4.2 g/dL (2.3-3.5) H 02/11/20 20: Albumin/Globulin Ratio 0.5 (1.1-1.8) L 02/11/20 20:19 Medications List Reviewed: Yes Assessment & Plan - Problems (Diagnosis) (1) Acute renal failure Current Visit: Yes Status: Acute (2) Anemia Current Visit: Yes Status: Acute (3) Elevated liver enzymes Current Visit: Yes Status: Acute (4) History of peptic ulcer disease Current Visit: Yes Status: Acute (5) Pancytopenia Current Visit: Yes Status: Acute Physician Review Additional Text: Fatigue, edema and shortness of breath secondary to DRESS syndrome(drug reaction) Pancytopenia likely related to DRESS syndrome Acute renal failure as above Hypertension Atrial fibrillation Left hepatic cyst, bilateral renal cyst Mild ascending aortic aneurysm 4.3 cm Suspect underlying liver cirrhosis with noted splenomegaly Moderate malnutrition and low albumin Plan: Fatigue, edema and shortness of breath secondary to DRESS syndrome(drug reaction): Biopsy still pending. 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 Flow cytometry sent out. Appreciate help from hematology. Patient continues to improve with albumin/Lasix. Patient also getting prednisone 30 mg 1 pill twice daily. This will be tapered as an outpatient. Hemoglobin low. CBC monitored Transfuse p.r.n.to maintain hemoglobin above 7.5. Will monitor closely. Pancytopenia likely related to DRESS syndrome: Was on Granix. Patient also may require platelet count if this continues to decline. Will monitor closely. May require bone marrow biopsy as an outpatient. Acute renal failure as above: Appreciate help from nephrology. Nephrology plans continue with albumin/Lasix. Avoid nephrotoxins Medications to renally dose. Hypertension: Titrate antihypertensives Atrial fibrillation: Continue flecainide. Appreciate help from cardiology. Digoxin p.r.n. if tachycardia developes Left hepatic cyst, bilateral renal cyst: appears benign. Follow up as an outpatient Mild ascending aortic aneurysm 4.3 cm: outpatient with Cardiology. Possible underlying liver cirrhosis with noted splenomegaly: Appreciate help from GI. Patient likely with chronic liver disease. Monitor LFTs Moderate malnutrition and low albumin: Albumin replaced. Will have dietary make recommendation. Time Spent Managing Pts Care (In Minutes): 45
--- NOTE | 2020-02-19 14:37 | P.PN ---
Subjective Date of Service: 02/19/20 Chief Complaint: Generalized weakness and fatigue Clinically improved. Better energy level. Edema about the same as yesterday Review of Systems General: Unremarkable Eyes: Unremarkable ENT: Unremarkable Respiratory: Unremarkable Cardiovascular: Edema Gastrointestinal: Unremarkable Genitourinary: Unremarkable Musculoskeletal: Pedal edema Neurological: Unremarkable Physical Examination - Vital Signs Temperature: 97.6 F Blood Pressure: 135/61 Pulse: 87 Respirations: 16 Pulse Ox (%): 97 - Physical Exam General: Alert, In no apparent distress HEENT: Atraumatic, PERRLA, EOMI Neck: Supple, JVD not distended Respiratory: Clear to auscultation bilaterally Cardiovascular: Edema Gastrointestinal: Normal bowel sounds Musculoskeletal: No tenderness Integumentary: No rashes Neurological: Normal speech, Normal tone, Normal affect Lymphatics: No axilla or inguinal lymphadenopathy - Studies Medications List Reviewed: Yes Assessment & Plan - Problems (Diagnosis) (1) Acute renal failure Current Visit: Yes Status: Acute (2) Anemia Current Visit: Yes Status: Acute (3) Elevated liver enzymes Current Visit: Yes Status: Acute Physician Review Additional Text: PROBLEM ASHLY most likely 2/2 cardiorenal ASHLY; improved post albumin; improving Possible DRESS syndrome from antibiotics. CHF Chronic liver failure Hypotension; improved on steroids. Severe anemia s/p axillary lymph node biopsy Pancytopenia PLAN Change regimen to increase diuresis. Albumin q 12h. Increased lasix 20mg iv bid Hypoalbuminemia is significant from liver failure and malnutrition, management per primary team Anemia management per primary team management Transfuse for hgb <7 Avoid nsaids, acei, CT contrast study
[2020-02-19] MEDS: ALBUMIN HUMAN 25% 100 ML IV SCH (20:34)
[2020-02-20] MEDS: PANTOPRAZOLE 40MG TABLET PO SCH (06:30)
[2020-02-20] MEDS: FUROSEMIDE 20 MG/ 2ML VIAL IV SCH ×2 (08:02→16:20)
[2020-02-20] MEDS: FOLIC ACID 1 MG TABLET PO SCH (08:02)
[2020-02-20] MEDS: predniSONE 20 MG TAB PO SCH ×2 (08:03→20:41)
[2020-02-20] MEDS: FLECAINIDE 100 MG TAB PO SCH ×2 (08:04→20:41)
[2020-02-20] MEDS: THIAMINE HCL 100 MG TABLET PO SCH (08:05)
[2020-02-20] MEDS: ENSURE ENLIVE 237 ML CAN PO SCH ×2 (08:05→20:42)
[2020-02-20] MEDS: ALBUMIN HUMAN 25% 100 ML IV SCH ×2 (08:06→20:41)
--- NOTE | 2020-02-20 10:28 | P.PN ---
Subjective Date of Service: 02/20/20 Chief Complaint: Generalized weakness and fatigue Subjective: No new changes, Other (Still has swelling all extremities Denies any chest pain or shortness of breath No fever or chills) Review of Systems 10-point ROS is otherwise unremarkable Physical Examination - Vital Signs Temperature: 97.9 F Blood Pressure: 110/68 Pulse: 72 Respirations: 17 Pulse Ox (%): 96 - Physical Exam General: Alert, In no apparent distress HEENT: Atraumatic, Normocephalic Neck: Supple Respiratory: Diminished Cardiovascular: Normal pulses, Regular rate/rhythm, Normal S1 S2, Edema Capillary refill: <2 Seconds Gastrointestinal: Soft and benign Musculoskeletal: Swelling Integumentary: No rashes Neurological: Normal speech, Normal strength at 5/5 x4 extr - Studies Laboratory Tests 02/11/20 02/11/20 02/11/20 19:49 19:49 19:49 WBC Cancelled RBC Cancelled Hgb Cancelled Hct Cancelled MCV Cancelled MCH Cancelled MCHC Cancelled RDW Cancelled Plt Count Cancelled MPV Cancelled Neutrophils % Cancelled Lymphocytes % Cancelled Monocytes % Cancelled Eosinophils % Cancelled Basophils % Cancelled Absolute Neutrophils Cancelled Absolute Lymphocytes Cancelled Absolute Monocytes Cancelled Absolute Eosinophils Cancelled Absolute Basophils Cancelled Diff Path Review Cancelled Polychromasia Anisocytosis Morphology Comment PT Cancelled INR Cancelled Sodium Cancelled Potassium Cancelled Chloride Cancelled Carbon Dioxide Cancelled BUN Cancelled Creatinine Cancelled Estimated GFR Cancelled Glucose Cancelled Calcium Cancelled Magnesium Cancelled Total Bilirubin Cancelled Direct Bilirubin Cancelled AST Cancelled ALT Cancelled Alkaline Phosphatase Cancelled Rapid Troponin I Cancelled NT-Pro-B Natriuret Pep Cancelled Serum Total Protein Cancelled Albumin Cancelled Globulin Cancelled Albumin/Globulin Ratio Cancelled 02/11/20 02/11/20 02/11/20 20:19 21:26 21:26 WBC 1.9 L* RBC 3.35 L Hgb 9.9 L Hct 29.7 L MCV 88.8 MCH 29.5 MCHC 33.2 RDW 18.8 H Plt Count 28 L* MPV 9.9 Neutrophils % 54.4 Lymphocytes % 29.0 Monocytes % 11.2 Eosinophils % 4.1 Basophils % 1.3 Absolute Neutrophils 1.0 L Absolute Lymphocytes 0.6 L Absolute Monocytes 0.2 Absolute Eosinophils 0.1 Absolute Basophils 0.0 Diff Path Review Polychromasia 2+ Anisocytosis 1+ Morphology Comment Noted PT 18.1 H INR 1.55 Sodium 133 L Potassium 5.2 H Chloride 99 Carbon Dioxide 20 L BUN 45 H Creatinine 2.11 H Estimated GFR 37 L Glucose 105 Calcium 7.8 L Magnesium 2.9 H D Total Bilirubin 2.1 H Direct Bilirubin 1.3 H AST 83 H ALT 22 Alkaline Phosphatase 139 H Rapid Troponin I 0.04 NT-Pro-B Natriuret Pep 3110 H Serum Total Protein 6.5 Albumin 2.3 L Globulin 4.2 H Albumin/Globulin Ratio 0.5 L Medications List Reviewed: Yes Assessment & Plan - Problems (Diagnosis) (1) Acute renal failure Current Visit: Yes Status: Acute (2) Anemia Current Visit: Yes Status: Acute (3) Elevated liver enzymes Current Visit: Yes Status: Acute (4) History of peptic ulcer disease Current Visit: Yes Status: Acute (5) Pancytopenia Current Visit: Yes Status: Acute Physician Review Additional Text: Fatigue, edema and shortness of breath secondary to DRESS syndrome(drug reaction) Pancytopenia likely related to DRESS syndrome Acute renal failure as above Hypertension Atrial fibrillation Left hepatic cyst, bilateral renal cyst Mild ascending aortic aneurysm 4.3 cm Suspect underlying liver cirrhosis with noted splenomegaly Moderate malnutrition and low albumin Plan: Fatigue, edema and shortness of breath secondary to DRESS syndrome(drug reaction): Biopsy still pending. 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 Flow cytometry sent out. Appreciate help from hematology. Patient continues to improve with albumin/Lasix. Patient also getting prednisone 30 mg twice daily. This will be tapered as an outpatient. Hemoglobin low. CBC monitored Transfuse p.r.n.to maintain hemoglobin above 7.5. Will monitor closely. Pancytopenia likely related to DRESS syndrome: Was on Granix. Patient also may require platelet count if this continues to decline. Will monitor closely. May require bone marrow biopsy as an outpatient. Acute renal failure as above: Appreciate help from nephrology. Nephrology plans continue with albumin/Lasix. Avoid nephrotoxins Medications to renally dose. Hypertension: Titrate antihypertensives Atrial fibrillation: Continue flecainide. Appreciate help from cardiology. Digoxin p.r.n. if tachycardia developes Left hepatic cyst, bilateral renal cyst: appears benign. Follow up as an outpatient Mild ascending aortic aneurysm 4.3 cm: outpatient with Cardiology. Possible underlying liver cirrhosis with noted splenomegaly: Appreciate help from GI. Patient likely with chronic liver disease. Monitor LFTs Moderate malnutrition and low albumin: Albumin replaced. Will have dietary make recommendation. Time Spent Managing Pts Care (In Minutes): 45
[2020-02-20 13:56] LABS: Potassium 4.6 mmol/L (3.5-5.1)
[2020-02-20 15:21] LABS: Absolute Lymphocytes (CBC) 0.6 K/uL (0.7-4.9); Basophils % 0.4 % (0-1.3); Hematocrit 25.2 % (39.6-49.0); Lymphocytes % 11.3 % (15.3-44.8); MPV 8.7 fL (7.6-11.3); RBC Red Blood Cell Count 2.83 M/uL (4.33-5.43)
[2020-02-21] MEDS: PANTOPRAZOLE 40MG TABLET PO SCH (05:29)
[2020-02-21 05:43] LABS: Absolute Lymphocytes (CBC) 0.5 K/uL (0.7-4.9); Basophils % 0.3 % (0-1.3); Lymphocytes % 13.4 % (15.3-44.8); MPV 9.5 fL (7.6-11.3); RBC Red Blood Cell Count 2.62 M/uL (4.33-5.43)
[2020-02-21 05:52] LABS: Albumin 3.3 g/dL (3.4-5.0); Bilirubin Total 2.5 mg/dL (0.2-1.0); Protein, Total 5.6 g/dL (6.4-8.2)
[2020-02-21 07:45] LABS: Anisocytosis 1+; Blood Morphology Comment NOTED (NOT SEEN); Platelet Estimate DECR; Polychromasia 1+; Spherocyte 1+
[2020-02-21] MEDS: predniSONE 20 MG TAB PO SCH ×2 (09:00→21:08)
[2020-02-21] MEDS: FLECAINIDE 100 MG TAB PO SCH ×2 (09:00→21:00)
[2020-02-21] MEDS: FUROSEMIDE 20 MG/ 2ML VIAL IV SCH ×2 (09:00→17:00)
[2020-02-21] MEDS: ALBUMIN HUMAN 25% 100 ML IV SCH ×2 (09:00→21:00)
[2020-02-21] MEDS: THIAMINE HCL 100 MG TABLET PO SCH (09:00)
[2020-02-21] MEDS: FOLIC ACID 1 MG TABLET PO SCH (09:00)
[2020-02-21] MEDS: ENSURE ENLIVE 237 ML CAN PO SCH ×2 (09:00→21:14)
[2020-02-21] MEDS ORDERED: NA CHLORIDE 0.9% 250 ML ONE (10:48)
--- NOTE | 2020-02-21 11:07 | P.PN ---
Subjective Date of Service: 02/21/20 Chief Complaint: Generalized weakness and fatigue Subjective: No new changes, Improving Review of Systems 10-point ROS is otherwise unremarkable Physical Examination - Vital Signs Temperature: 97.6 F Blood Pressure: 144/67 Pulse: 89 Respirations: 20 Pulse Ox (%): 97 - Physical Exam General: Alert, In no apparent distress HEENT: Atraumatic, Normocephalic Neck: Supple Respiratory: Clear to auscultation bilaterally Cardiovascular: Regular rate/rhythm, Normal S1 S2, Edema Capillary refill: <2 Seconds Gastrointestinal: Soft and benign, W/out hepatosplenomegaly Musculoskeletal: No clubbing, Swelling Integumentary: No rashes Neurological: Normal speech, Normal strength at 5/5 x4 extr Lymphatics: No axilla or inguinal lymphadenopathy - Studies Medications List Reviewed: Yes Assessment & Plan - Problems (Diagnosis) (1) Acute renal failure Current Visit: Yes Status: Acute (2) Anemia Current Visit: Yes Status: Acute (3) Elevated liver enzymes Current Visit: Yes Status: Acute (4) History of peptic ulcer disease Current Visit: Yes Status: Acute (5) Pancytopenia Current Visit: Yes Status: Acute Physician Review Additional Text: Fatigue, edema and shortness of breath secondary to DRESS syndrome(drug reaction) Pancytopenia likely related to DRESS syndrome Acute renal failure as above Hypertension Atrial fibrillation Left hepatic cyst, bilateral renal cyst Mild ascending aortic aneurysm 4.3 cm Suspect underlying liver cirrhosis with noted splenomegaly Moderate malnutrition and low albumin Plan: Fatigue, edema and shortness of breath secondary to DRESS syndrome(drug reaction): Biopsy still pending. Preliminary report suggestive of B-cell lymphoma. Flow cytometry sent out. Appreciate help from hematology. Patient continues to improve with albumin/Lasix. Patient also getting prednisone 30 mg twice daily. This will be tapered as an outpatient. CBC monitored Transfuse p.r.n.to maintain hemoglobin above 7.5. Will monitor closely. Swelling is better Advice ambulation Pancytopenia likely related to DRESS syndrome: Was on Granix. Will transfuse 1 unit of PRBC Will also transfuse 1 unit of platelet Will monitor CBC closely. May require bone marrow biopsy as an outpatient. Acute renal failure as above: Appreciate help from nephrology. Nephrology plans continue with albumin/Lasix. Renal parameters improving Avoid nephrotoxins Medications to renally dose. Hypertension: Titrate antihypertensives Atrial fibrillation: Continue flecainide. Appreciate help from cardiology. Digoxin p.r.n. if tachycardia developes Left hepatic cyst, bilateral renal cyst: appears benign. Follow up as an outpatient Mild ascending aortic aneurysm 4.3 cm: outpatient with Cardiology. Possible underlying liver cirrhosis with noted splenomegaly: Appreciate help from GI. Patient likely with chronic liver disease. Monitor LFTs Moderate malnutrition and low albumin: Albumin replaced. Will have dietary make recommendation. Disposition : Dc home once more stable clinically Need to follow up with hematology oncology as an out patient for possible treatment of B-cell lymphoma Time Spent Managing Pts Care (In Minutes): 45
[2020-02-21 13:48] LABS: MPV 8.5 fL (7.6-11.3)
[2020-02-21 15:30] LABS: Platelet Estimate DECR
--- NOTE | 2020-02-21 16:44 | P.PN ---
Subjective Date of Service: 02/20/20 Chief Complaint: Generalized weakness and fatigue Clinically improving edema and overall well being. No complaints at this time Review of Systems 10-point ROS is otherwise unremarkable (Legs still swollen, reports improved appetite) Physical Examination - Vital Signs Temperature: 97.0 F Blood Pressure: 137/67 Pulse: 82 Respirations: 15 Pulse Ox (%): 97 - Physical Exam General: Alert, In no apparent distress HEENT: Atraumatic, PERRLA, EOMI Neck: Supple, JVD not distended Respiratory: Clear to auscultation bilaterally, Normal air movement Cardiovascular: Edema Capillary refill: <2 Seconds Gastrointestinal: Normal bowel sounds, No tenderness Musculoskeletal: No tenderness Integumentary: No rashes - Studies Medications List Reviewed: Yes Assessment & Plan - Problems (Diagnosis) (1) Acute renal failure Current Visit: Yes Status: Acute (2) Anemia Current Visit: Yes Status: Acute (3) Elevated liver enzymes Current Visit: Yes Status: Acute Physician Review Additional Text: PROBLEM ASHLY most likely 2/2 cardiorenal ASHLY; improved post albumin; improving almost at baseline of 1.0 DRESS syndrome from antibiotics. CHF Chronic liver failure Hypotension; improved on steroids. Severe anemia s/p axillary lymph node biopsy Pancytopenia PLAN Continue albumin bid and lasix 20mg iv bid Hypoalbuminemia is significant from liver failure and malnutrition, management per primary team; improving Anemia management per primary team management Transfuse for hgb <7 Avoid nsaids, acei, CT contrast study
[2020-02-22 05:43] LABS: Absolute Lymphocytes (CBC) 0.4 K/uL (0.7-4.9); Basophils % 1.4 % (0-1.3); Lymphocytes % 21.5 % (15.3-44.8); MPV 8.9 fL (7.6-11.3); RBC Red Blood Cell Count 2.49 M/uL (4.33-5.43)
[2020-02-22 06:14] LABS: Albumin 3.4 g/dL (3.4-5.0); Bilirubin Total 2.5 mg/dL (0.2-1.0); Protein, Total 5.9 g/dL (6.4-8.2)
[2020-02-22] MEDS: PANTOPRAZOLE 40MG TABLET PO SCH (06:18)
[2020-02-22 08:20] LABS: Anisocytosis 1+; Blood Morphology Comment NOTED (NOT SEEN); Platelet Estimate DECR; White Blood Cell Scan OK
[2020-02-22] MEDS: predniSONE 20 MG TAB PO SCH ×2 (08:29→21:19)
[2020-02-22] MEDS: THIAMINE HCL 100 MG TABLET PO SCH (08:29)
[2020-02-22] MEDS: FUROSEMIDE 20 MG/ 2ML VIAL IV SCH ×2 (08:30→16:15)
[2020-02-22] MEDS: FOLIC ACID 1 MG TABLET PO SCH (08:30)
[2020-02-22] MEDS: FLECAINIDE 100 MG TAB PO SCH ×2 (08:31→21:19)
[2020-02-22] MEDS: ALBUMIN HUMAN 25% 100 ML IV SCH ×2 (08:32→21:00)
[2020-02-22] MEDS: ENSURE ENLIVE 237 ML CAN PO SCH ×3 (08:32→21:00)
--- NOTE | 2020-02-22 11:27 | P.PN ---
Subjective Date of Service: 02/22/20 Chief Complaint: Generalized weakness and fatigue Subjective: No new changes, Tolerating diet Review of Systems 10-point ROS is otherwise unremarkable Physical Examination - Vital Signs Temperature: 97 F Blood Pressure: 152/63 Pulse: 82 Respirations: 20 Pulse Ox (%): 96 - Physical Exam General: Alert, In no apparent distress HEENT: Atraumatic, Normocephalic Neck: Supple Respiratory: Clear to auscultation bilaterally, Normal air movement Cardiovascular: Normal pulses, Regular rate/rhythm Capillary refill: <2 Seconds Gastrointestinal: Soft and benign, W/out hepatosplenomegaly Musculoskeletal: No clubbing, No erythema, No tenderness, No warmth, Swelling Integumentary: No rashes Neurological: Normal speech, Normal strength at 5/5 x4 extr Urinary: Other (No bladder distention) - Studies Medications List Reviewed: Yes Assessment & Plan - Problems (Diagnosis) (1) Acute renal failure Current Visit: Yes Status: Acute (2) Anemia Current Visit: Yes Status: Acute (3) Elevated liver enzymes Current Visit: Yes Status: Acute (4) History of peptic ulcer disease Current Visit: Yes Status: Acute (5) Pancytopenia Current Visit: Yes Status: Acute Plan: Fatigue, edema and shortness of breath secondary to DRESS syndrome(drug reaction) Pancytopenia likely related to DRESS syndrome Acute renal failure as above Hypertension Atrial fibrillation Left hepatic cyst, bilateral renal cyst Mild ascending aortic aneurysm 4.3 cm Suspect underlying liver cirrhosis with noted splenomegaly Moderate malnutrition and low albumin Plan: Fatigue, edema and shortness of breath secondary to DRESS syndrome(drug reaction): Biopsy consistent with B-cell lymphoma Appreciate help from hematology. Will taper of steroids 20 mg p.o. b.i.d. CBC monitored Will transfuse 2 units PRBC will also transfuse 1 unit platelet Possible Dc in a.m. Hematology recommended starting chemotherapy as early as possible Will monitor closely. Swelling is better Advice ambulation Pancytopenia likely related to DRESS syndrome: Restarted back on Granix. Will transfuse 2 unit of PRBC Will also transfuse 1 unit of platelet Will monitor CBC closely. Acute renal failure as above: Appreciate help from nephrology. Nephrology plans continue with albumin/Lasix. Renal parameters improving Avoid nephrotoxins Medications to renally dose. Hypertension: Titrate antihypertensives Atrial fibrillation: Continue flecainide. Appreciate help from cardiology. Digoxin p.r.n. if tachycardia developes Left hepatic cyst, bilateral renal cyst: appears benign. Follow up as an outpatient Mild ascending aortic aneurysm 4.3 cm: outpatient with Cardiology. Possible underlying liver cirrhosis with noted splenomegaly: Appreciate help from GI. Patient likely with chronic liver disease. Monitor LFTs Moderate malnutrition and low albumin: Albumin replaced. Will have dietary make recommendation. Disposition : Dc home in a.m. Need to follow up with hematology oncology as an out patient for possible treatment of B-cell lymphoma [facility] Secretary discussed with him about the options and he verbalized understanding Time Spent Managing Pts Care (In Minutes): 40
[2020-02-22] MEDS ORDERED: NA CHLORIDE 0.9% 250 ML IV SCH (13:00)
[2020-02-22] MEDS: TBO-FILGRASTIM 480 MCG/0.8 ML SYR SQ SCH (15:42)
[2020-02-22] MEDS ORDERED: CEFAZOLIN/SWI 1gm 1 GM/10 ML SYR IVP SCH (16:30)
--- NOTE | 2020-02-22 21:35 | PN ---
Date of Progress Note: 02/22/2020 Subjective: Mr. Camacho was resting when I saw him. He complained of having to wake up multiple times to go to the bathroom since he is on diuretics. He denies any chest pain or shortness of breath. He has been walking around in his room without too much difficulty. Objective: Vital Signs: He has been afebrile. Temperature was 97.6 at noon, pulse 93, respirations 20, blood pressure 142/70. He is saturating at 100% on room air. In's and out's for the last 24 hours revealed a total intake of 1940, a total output of urination 4 times, exact output is unknown. His weight was 212 pounds this morning. General: There is pallor. No clubbing or cyanosis was noted. Lymph Node Survey: Reveals the small cervical lymph nodes bilaterally. He has a dressing over his right axilla and left axillary adenopathy is still palpable. HEENT: Unchanged. Chest: Reveals bilateral vesicular breath sounds. Again, reduced at the bases posteriorly. Heart: Reveal normal S1, S2. No gallops or murmurs. Abdomen: Soft with evidence of cutaneous edema. Liver and spleen were not palpable. There is no ascites. Bowel sounds were present. Neurologic: He is alert and oriented with no acute deficits. Extremities: Continue to show 2 to 3+ edema. Laboratory Data: Lab data from this morning reveals a white count of 2.1 with an absolute neutrophil count of 1500, hemoglobin was 7.4, hematocrit 22, platelet count was 26,000. Chemistries reveal improving BUN and creatinine, which were at 49 and 1.01 respectively, for an estimated GFR of 87. His total bilirubin remains elevated at 2.5. AST was also elevated at 87 as was the alkaline phosphatase at 142. Albumin remains low at 3.4 g/dL. He has been receiving IV albumin infusions 25 g b.i.d. Assessment And Plan: 1. Diffuse large B-cell lymphoma. The right axillary lymph node reveals a diffuse large B-cell lymphoma, germinal center cell type. Staging based on CT scan of the chest, abdomen, and pelvis suggests he has stage IV lymphoma given the significant splenic and possible hepatic involvement. I had a long discussion with him, with his on speaker phone today. We discussed that this is an aggressive lymphoma and that therapy would be indicated. I have recommended chemotherapy with R-CHOP q.3 weeks x6 cycles for Mr. Camacho. The plan is to discharge Mr. Camacho from the hospital tomorrow or latest by Saturday, so we may start on chemotherapy the same day, i.e., Saturday afternoon. We discussed side effects of chemotherapy including, but not limited to nausea, vomiting, fatigue, worsening blood counts, need for support factors and/or transfusion, the risk of infection, and even . We also discussed that in the absence of therapy, this lymphoma is usually fatal. They understand and are willing to proceed with therapy as outlined above. 2. Pancytopenia. He has a persistent pancytopenia in spite of steroids and growth factor, especially Neupogen intermittently. Again, possible causes include drug hypersensitivity reaction or lymphoma. We will resume Granix 480 mcg subcu daily until. We would suggest to transfuse 2 units of packed red blood cells in anticipation of discharge and chemotherapy. We would also transfuse 1 unit of single donor platelets in anticipation of a Port-A-Cath placement tomorrow and chemotherapy day after tomorrow. ZOE/SHADE Voice ID: [id number] Report ID: [id number] MEGAN
[2020-02-23] MEDS: PANTOPRAZOLE 40MG TABLET PO SCH (04:43)
[2020-02-23 06:11] LABS: ALT/SGPT 51 U/L (12-78); AST/SGOT 89 U/L (15-37); Albumin 3.3 g/dL (3.4-5.0); Alkaline Phosphatase 127 U/L (45-117); BUN Blood Urea Nitrogen 45 mg/dL (7-18); Bicarbonate 29 mmol/L (21-32); Bilirubin Total 2.2 mg/dL (0.2-1.0); Glucose Level 115 mg/dL (74-106); Potassium 4.5 mmol/L (3.5-5.1); Protein, Total 5.7 g/dL (6.4-8.2); Sodium Level 140 mmol/L (136-145)
[2020-02-23] MEDS: THIAMINE HCL 100 MG TABLET PO SCH (07:33)
[2020-02-23] MEDS: ENSURE ENLIVE 237 ML CAN PO SCH ×2 (07:33→14:00)
[2020-02-23] MEDS: FOLIC ACID 1 MG TABLET PO SCH (07:34)
[2020-02-23] MEDS: predniSONE 20 MG TAB PO SCH (09:00)
[2020-02-23] MEDS: ALBUMIN HUMAN 25% 100 ML IV SCH (09:00)
[2020-02-23] MEDS: TBO-FILGRASTIM 480 MCG/0.8 ML SYR SQ SCH (09:00)
[2020-02-23] MEDS: FLECAINIDE 100 MG TAB PO SCH (09:28)
[2020-02-23] MEDS: FUROSEMIDE 20 MG/ 2ML VIAL IV SCH (09:28)
[2020-02-23] MEDS ORDERED: NA CHLORIDE 0.9% 500 ML ONE (10:16)
[2020-02-23] MEDS ORDERED: CEFAZOLIN/SWI 1gm 1 GM/10 ML SYR ONE (10:17)
[2020-02-23] MEDS ORDERED: HEPARIN 5000 UNIT/ML 1 ML VIAL ONE (10:31)
[2020-02-23] MEDS ORDERED: NS 0.9% VIAL 20 ML ONE (10:31)
[2020-02-23] MEDS ORDERED: LIDOCAINE 1% 20 ML MDV ONE (10:32)
[2020-02-23] MEDS ORDERED: NA CHLORIDE 0.9% 250 ML ONE (10:44)
--- NOTE | 2020-02-23 11:12 | P.PN ---
Subjective Date of Service: 02/23/20 Chief Complaint: Generalized weakness and fatigue Subjective: No new changes Review of Systems 10-point ROS is otherwise unremarkable Physical Examination - Vital Signs Temperature: 97.0 F Blood Pressure: 146/73 Pulse: 77 Respirations: 16 Pulse Ox (%): 98 - Physical Exam General: Alert, In no apparent distress HEENT: Atraumatic, Normocephalic Neck: Supple Respiratory: Clear to auscultation bilaterally Cardiovascular: Regular rate/rhythm, Normal S1 S2, Edema Capillary refill: <2 Seconds Gastrointestinal: Soft and benign, W/out hepatosplenomegaly Musculoskeletal: No clubbing, No swelling Integumentary: No rashes Neurological: Normal speech, Normal strength at 5/5 x4 extr Lymphatics: No axilla or inguinal lymphadenopathy - Studies Medications List Reviewed: Yes Assessment & Plan - Problems (Diagnosis) (1) Acute renal failure Current Visit: Yes Status: Acute (2) Anemia Current Visit: Yes Status: Acute (3) Elevated liver enzymes Current Visit: Yes Status: Acute (4) History of peptic ulcer disease Current Visit: Yes Status: Acute (5) Pancytopenia Current Visit: Yes Status: Acute Plan: Fatigue, edema and shortness of breath secondary to DRESS syndrome(drug reaction) Pancytopenia likely related to DRESS syndrome Acute renal failure as above Hypertension Atrial fibrillation Left hepatic cyst, bilateral renal cyst Mild ascending aortic aneurysm 4.3 cm Suspect underlying liver cirrhosis with noted splenomegaly Moderate malnutrition and low albumin Plan: Fatigue, edema and shortness of breath secondary to DRESS syndrome(drug reaction): Biopsy consistent with B-cell lymphoma Appreciate help from hematology. Will taper of steroids 20 mg p.o. b.i.d. CBC monitored Will transfuse 2 units PRBC will also transfuse 1 unit platelet Possible Dc in a.m. Hematology recommended starting chemotherapy as early as possible Will monitor closely. Swelling is better Advice ambulation Pancytopenia likely related to DRESS syndrome: Restarted back on Granix. Will transfuse 2 unit of PRBC Will also transfuse 1 unit of platelet Will monitor CBC closely. Acute renal failure as above: Appreciate help from nephrology. Nephrology plans continue with albumin/Lasix. Renal parameters improving Avoid nephrotoxins Medications to renally dose. Hypertension: Titrate antihypertensives Atrial fibrillation: Continue flecainide. Appreciate help from cardiology. Digoxin p.r.n. if tachycardia developes Left hepatic cyst, bilateral renal cyst: appears benign. Follow up as an outpatient Mild ascending aortic aneurysm 4.3 cm: outpatient with Cardiology. Possible underlying liver cirrhosis with noted splenomegaly: Appreciate help from GI. Patient likely with chronic liver disease. Monitor LFTs Moderate malnutrition and low albumin: Albumin replaced. Will have dietary make recommendation. 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 discussed with him about the options and he verbalized understanding Time Spent Managing Pts Care (In Minutes): 45
[2020-02-23] MEDS ORDERED: FENTANYL CITR 100 MCG/2 ML ONE (11:56)
[2020-02-23] MEDS ORDERED: propofoL 200 MG/20 ML VIAL IV ONE (11:56)
[2020-02-23] MEDS ORDERED: LIDOCAINE 1% MPF 5 ML VIAL ONE (11:57)
--- NOTE | 2020-02-23 12:26 | P.OP ---
Preoperative diagnosis: Lymphoma Postoperative diagnosis: same Primary procedure: RIJ Portacath, Fluoroscopy Anesthesia: MAC Estimated blood loss: min Specimen: NONE Findings: Normal Anatomy Complications: None Transferred to: Recovery Room Condition: Good
--- NOTE | 2020-02-23 13:08 | RAD REPORT ---
EXAM DESCRIPTION: RAD - Fluoroscopy <1 Hour - 02/23/2020 12:59 pm CLINICAL HISTORY: Venous catheter insertion. PORT A CATH PLACEMENT COMPARISON: No comparisons FINDINGS: Fluoroscopic imaging is submitted from placement of a venous catheter. Details of the pro cedure not available. Fluoroscopy time: 0.3 minutes.
--- NOTE | 2020-02-23 13:16 | RAD REPORT ---
EXAM DESCRIPTION: RAD - Chest Single View - 02/23/2020 1:12 pm CLINICAL HISTORY: S/P Portacath Chest pain. COMPARISON: Chest Single View dated 02/11/2020; Chest Single View dated 01/16/2020; Chest Single View d ated 03/29/2016 FINDINGS: Portable technique limits examination quality. Right-sided port catheter is in place with tip in the SVC. No postprocedure pneumothorax. The heart i s normal in size. No displaced fractures. IMPRESSION: No postprocedure pneumothorax.
[2020-02-23 13:39] VITALS: O2SAT 99
[2020-02-23 14:18] VITALS: BP 146/73; TEMP 97
--- NOTE | 2020-02-23 14:23 | P.DS ---
Admission Date: 02/11/20 Discharge Date: 02/23/20 Disposition: ROUTINE DISCHARGE Discharge Condition: FAIR Reason for Admission: Generalized weakness and fatigue - Problems (1) Acute renal failure Current Visit: Yes Status: Acute (2) Anemia Current Visit: Yes Status: Acute (3) Elevated liver enzymes Current Visit: Yes Status: Acute (4) History of peptic ulcer disease Current Visit: Yes Status: Acute (5) Pancytopenia Current Visit: Yes Status: Acute Brief History of Present Illness: 74-year-old gentleman with a history of hypertension, recent severe anemia secondary to GI bleed and recently diagnosed with H. pylori peptic ulcer at [facility] [place], about 3 weeks ago, presented emergency department with a complaint of easy fatigability, generalized weakness and shortness of breath. Patient also reports red rashes all over his body and diarrhea. He denies any bloody stools or melena. He stated he completed 2 weeks of therapy for the H. pylori infection. Blood work in the ED shows leukopenia and thrombocytopenia. Hemoglobin is at 9.9. Blood chemistry shows evidence of acute renal failure, mild hyperkalemia and mild hyponatremia. Patient denies any fever. He is admitted for further management. Hospital Course: Fatigue, edema and shortness of breath secondary to DRESS syndrome(drug reaction) Pancytopenia likely related to DRESS syndrome Acute renal failure as above Hypertension Atrial fibrillation Left hepatic cyst, bilateral renal cyst Mild ascending aortic aneurysm 4.3 cm Suspect underlying liver cirrhosis with noted splenomegaly Moderate malnutrition and low albumin Plan: Fatigue, edema and shortness of breath secondary to DRESS syndrome(drug reaction): Biopsy consistent with B-cell lymphoma Appreciate help from hematology. Will taper of steroids 20 mg p.o. b.i.d. CBC monitored Will transfuse 2 units PRBC will also transfuse 1 unit platelet Possible Dc in a.m. Hematology recommended starting chemotherapy as early as possible Will monitor closely. Swelling is better Advice ambulation Pancytopenia likely related to DRESS syndrome: Restarted back on Granix. Will transfuse 2 unit of PRBC Will also transfuse 1 unit of platelet Will monitor CBC closely. Acute renal failure as above: Appreciate help from nephrology. Nephrology plans continue with albumin/Lasix. Renal parameters improving Avoid nephrotoxins Medications to renally dose. Hypertension: Titrate antihypertensives Atrial fibrillation: Continue flecainide. Appreciate help from cardiology. Digoxin p.r.n. if tachycardia developes Left hepatic cyst, bilateral renal cyst: appears benign. Follow up as an outpatient Mild ascending aortic aneurysm 4.3 cm: outpatient with Cardiology. Possible underlying liver cirrhosis with noted splenomegaly: Appreciate help from GI. Patient likely with chronic liver disease. Monitor LFTs Moderate malnutrition and low albumin: Albumin replaced. Will have dietary make recommendation. 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 [employer] discussed with him about the options and he verbalized understanding He was also given tapering dose of steroids advised to taper off steroids through the PCPs/heme oncology Vital Signs/Physical Exam: Temp Pulse Resp BP Pulse Ox 97.0 F 77 16 146/73 H 98 02/23/20 14:18 02/23/20 14:18 02/23/20 14:18 02/23/20 14:18 02/23/20 14:18 General: Alert, In no apparent distress HEENT: Atraumatic, Normocephalic Neck: Supple, 2+ carotid pulse no bruit Respiratory: Clear to auscultation bilaterally, Normal air movement Cardiovascular: Regular rate/rhythm, Normal S1 S2 Capillary refill: <2 Seconds Gastrointestinal: Soft and benign, W/out hepatosplenomegaly Musculoskeletal: No clubbing, Swelling Integumentary: No rashes Neurological: Normal speech Lymphatics: No axilla or inguinal lymphadenopathy Laboratory Data at Discharge: WBC 2.1 K/uL (4.3-10.9) L D 02/22/20 05:28 Hgb 8.9 g/dL (13.6-17.9) L 02/23/20 05:01 Hct 26.0 % (39.6-49.0) L D 02/23/20 05:01 Plt Count 26 K/uL (152-406) L* D 02/22/20 05:28 PT 14.5 SECONDS (9.5-12.5) H 02/19/20 05:31 INR 1.23 02/19/20 05:31 APTT 28.6 SECONDS (24.3-36.9) 02/14/20 12:59 Sodium 140 mmol/L (136-145) 02/23/20 05:01 Potassium 4.5 mmol/L (3.5-5.1) 02/23/20 05:01 BUN 45 mg/dL (7-18) H 02/23/20 05:01 Creatinine 0.92 mg/dL (0.55-1.3) 02/23/20 05:01 Glucose 115 mg/dL (74-106) H 02/23/20 05:01 Phosphorus 1.9 mg/dL (2.5-4.9) L 02/21/20 05:08 Magnesium 3.0 mg/dL (1.8-2.4) H 02/19/20 05:31 Total Bilirubin 2.2 mg/dL (0.2-1.0) H 02/23/20 05:01 AST 89 U/L (15-37) H 02/23/20 05:01 ALT 51 U/L (12-78) 02/23/20 05:01 Alkaline Phosphatase 127 U/L (45-117) H 02/23/20 05:01 Home Medications: Amlodipine [Norvasc*] 5 mg PO DAILY 02/12/20 Flecainide [Tambocor*] 100 mg PO BID 02/12/20 Furosemide [Lasix*] 20 mg PO BIDL 30 Days #60 tab 02/23/20 predniSONE [Prednisone*] 30 mg PO BID #20 tab 02/23/20 New Medications: Furosemide [Lasix*] 20 mg PO BIDL 30 Days #60 tab predniSONE [Prednisone*] 30 mg PO BID #20 tab Diet: [facility] Time spent managing pt's care (in minutes): 35
--- NOTE | 2020-02-23 18:16 | P.PN ---
Subjective Date of Service: 02/21/20 Chief Complaint: Generalized weakness and fatigue Clinically improving edema and overall well being. No complaints at this time Review of Systems 10-point ROS is otherwise unremarkable (Still with bill le swelling. Improved appetite) Physical Examination - Vital Signs Temperature: 97.0 F Blood Pressure: 146/73 Pulse: 77 Respirations: 16 Pulse Ox (%): 98 - Physical Exam General: Alert, In no apparent distress HEENT: Atraumatic, PERRLA, EOMI Neck: Supple, JVD not distended Respiratory: Clear to auscultation bilaterally, Normal air movement Cardiovascular: Regular rate/rhythm, Normal S1 S2, Edema Capillary refill: <2 Seconds Gastrointestinal: Normal bowel sounds, No tenderness Musculoskeletal: No tenderness Integumentary: No rashes Neurological: Normal speech, Normal tone, Normal affect - Studies Medications List Reviewed: Yes Assessment & Plan - Problems (Diagnosis) (1) Acute renal failure Status: Acute (2) Anemia Status: Acute (3) Elevated liver enzymes Status: Acute Physician Review Additional Text: PROBLEM ASHLY most likely 2/2 cardiorenal ASHLY; improved post albumin; improving almost at baseline of 1.0 DRESS syndrome from antibiotics. CHF Chronic liver failure Hypotension; improved on steroids. Severe anemia s/p axillary lymph node biopsy Pancytopenia PLAN Continue albumin bid and lasix 20mg iv bid Hypoalbuminemia is significant from liver failure and malnutrition, management per primary team; improving Anemia management per primary team management Transfuse for hgb <7 Avoid nsaids, acei, CT contrast study
--- NOTE | 2020-02-23 18:19 | P.PN ---
Subjective Date of Service: 02/23/20 Chief Complaint: Generalized weakness and fatigue Clinically improving edema and overall well being. No complaints at this time Review of Systems 10-point ROS is otherwise unremarkable (No complaints. Ready to go home. Lower extremity swelling improving) Physical Examination - Vital Signs Temperature: 97.0 F Blood Pressure: 146/73 Pulse: 77 Respirations: 16 Pulse Ox (%): 98 - Physical Exam General: Alert, In no apparent distress HEENT: Atraumatic, PERRLA, EOMI Neck: Supple, JVD not distended Respiratory: Clear to auscultation bilaterally, Normal air movement Cardiovascular: Regular rate/rhythm, Normal S1 S2, Edema Capillary refill: <2 Seconds Gastrointestinal: Normal bowel sounds, No tenderness Musculoskeletal: No tenderness Integumentary: No rashes - Studies Medications List Reviewed: Yes Assessment & Plan - Problems (Diagnosis) (1) Acute renal failure Status: Acute (2) Anemia Status: Acute (3) Elevated liver enzymes Status: Acute Physician Review Additional Text: PROBLEM ASHLY most likely 2/2 cardiorenal ASHLY; improved post albumin; back to baseline; 0.9 DRESS syndrome from antibiotics. CHF Chronic liver failure Hypotension; improved on steroids. Severe anemia s/p axillary lymph node biopsy Pancytopenia PLAN Agree with lasix 20mg bid for discharge Hypoalbuminemia is significant from liver failure and malnutrition, management per primary team; improving Anemia management per primary team management Transfuse for hgb <7 Avoid nsaids, acei, CT contrast study
--- NOTE | 2020-02-23 22:12 | OP ---
Date of Procedure: 02/23/2020 Surgeon: Romaine Patterson MD Preoperative Diagnosis: B-cell lymphoma, stage IV. Postoperative Diagnosis: B-cell lymphoma, stage IV. Procedure: Placement of right IJ Port-A-Cath and interpretation of intraoperative fluoroscopy. Estimated Blood Loss: Minimal. Specimen: None. Findings: Normal anatomy. Anesthesia: MAC. Complications: None. The patient tolerated the procedure in stable condition, taken to Recovery in good general condition. Procedure In Detail: The patient was brought to the OR and placed in supine position and MAC anesthe rosaura begun. Then, the patient was prepped and draped in the usual sterile fashion. Lidocaine 1% infi ltrated locally. An 18-gauge needle was used to access the right IJ vein. Guidewire was passed. Po sition was confirmed with fluoroscopy. A 3 cm counterincision made on the right anterior chest. Poc ket was created. Bleeding controlled with cautery. Then tunneling device was used to tunnel the cat heter between the 2 wounds. Then Seldinger technique used. Tip of the catheter was placed in the SVC under fluoroscopy. Cut to appropriate size, attached to the Port-A-Cath device. Port-A-Cath device was attached to the subcutaneous tissue with 3-0 Vicryl and then 0 chromic used to approximate the s ubcutaneous tissue and close the skin. Port flushed with heparin and packed with heparin with good b lood flow. Pressure applied and chest x-ray has been ordered. The patient tolerated procedure in stable condition, taken recovery in good general condition. /MODL Voice ID: [id number] Report ID: [id number]
== END 2020-02-23 17:10 | disposition home or self-care (01) | DRG 823 ==
LOC: ER 16:55 → ERHOLD 23:54 → 3RD-ICU 02-12 11:33 → 4TH 02-13 10:54 → 2ND 02-18 18:22
PROVIDERS: ADMIT Internal Medicine; ATTEND Family Medicine
PROC: 07B50ZX Excision of Right Axillary Lymphatic, Open Approach, Diagnostic (ICD-10-PCS; 2020-02-16)
PROC: 0HBBXZX Excision of Right Upper Arm Skin, External Approach, Diagnostic (ICD-10-PCS; 2020-02-16)
PROC: 30233R1 Transfusion of Nonautologous Platelets into Peripheral Vein, Percutaneous Approach (ICD-10-PCS; 2020-02-16)
PROC: 30233N1 Transfusion of Nonautologous Red Blood Cells into Peripheral Vein, Percutaneous Approach (ICD-10-PCS; 2020-02-18)
PROC: 02HV33Z Insertion of Infusion Device into Superior Vena Cava, Percutaneous Approach (ICD-10-PCS; 2020-02-23)
PROC: B5181ZA Fluoroscopy of Superior Vena Cava using Low Osmolar Contrast, Guidance (ICD-10-PCS; 2020-02-23)
PROC: 0JH60WZ Insertion of Totally Implantable Vascular Access Device into Chest Subcutaneous Tissue and Fascia, Open Approach (ICD-10-PCS; principal; 2020-02-23 12:15)
DX: C85.10 Unspecified B-cell lymphoma, unspecified site (principal); D61.811 Other drug-induced pancytopenia; N17.9 Acute kidney failure, unspecified; E87.1 Hypo-osmolality and hyponatremia; R17 Unspecified jaundice; E44.0 Moderate protein-calorie malnutrition; G93.40 Encephalopathy, unspecified; D72.1 Eosinophilia; R60.9 Edema, unspecified; R53.83 Other fatigue; D72.819 Decreased white blood cell count, unspecified; E87.5 Hyperkalemia; Z20.828 Contact with and (suspected) exposure to other viral communicable diseases; Z79.899 Other long term (current) drug therapy; E87.70 Fluid overload, unspecified; E88.09 Other disorders of plasma-protein metabolism, not elsewhere classified; B96.81 Helicobacter pylori [H. pylori] as the cause of diseases classified elsewhere; I48.91 Unspecified atrial fibrillation; I71.2 Thoracic aortic aneurysm, without rupture; N28.1 Cyst of kidney, acquired; R00.0 Tachycardia, unspecified; I95.9 Hypotension, unspecified; T36.95XA Adverse effect of unspecified systemic antibiotic, initial encounter; R59.1 Generalized enlarged lymph nodes; K72.90 Hepatic failure, unspecified without coma; I10 Essential (primary) hypertension; Z68.29 Body mass index [BMI] 29.0-29.9, adult; K74.60 Unspecified cirrhosis of liver
CPT/HCPCS: 36415; 36430; 70450; 71045; 71250; 74176; 76000; 76700; 80048; 80053; 80074; 80076; 81003; 81015; 82040; 82140; 82248; 82607; 82728; 82746; 82947; 83010; 83540; 83615; 83735; 83880; 84100; 84145; 84165; 84443; 84466; 84484; 85014; 85018; 85025; 85044; 85049; 85610; 85652; 85730; 86038; 86140; 86255; 86430; 86850; 86880; 86900; 86901; 87040; 87086; 87088; 87389; 88305; 88333; 93005; 93306; 94760; 96365; 97110; 97116; 97161; 99285; C1788; J0456; J0690; J0696; J1100; J1160; J1447; J1644; J1940; J2405; J2704; J2930; J3010; J7030; J7040; J7050; J7512; P9016; P9035; P9047; U0002

== ENCOUNTER 2020-02-26 07:05 | Day surgery (SDC) | payer OTHER ==
--- OUTSIDE RECORDS SUMMARY | 2020-02-26 07:08 | XMS REPORT | Clinical Summary ---
:1945 Author Organization [facility] Address [address] [place] [address] Care Team Providers Name Role Phone Unavailable [...] Encounters Date Type Specialty Care Team Description 02/12/2020 Lab Requisition Lab 01/17/2020 Anesthesia Event Gastroenterology Susana Zayas MD 01/17/2020 Surgery Gastroenterology David Alfred MD ENDOSCOPY,SCLER OTHERAPY 01/17/2020 Travel 01/16/2020 - Hospital Encounter Cardiology Jacquie Acute b lood loss anemia; 01/19/2020 , MD Angel Acute cystitis without hematuria; Zulay Avila ASHLY (acute kidn ey injury) (HCC); MD Enrique Essential hypertension; Julianichermele Gastrointestina l hemorrhage with melena; Thao Acute gastric u lcer with hemorrhage MD Wong after 02/25/2019 Social History Tobacco Use Types Packs/Day Years [...] Name Priority Date/Time Associated Diagnosis Comme nts SARS-COV2/RT-PCR Routine 02/12/2020 11:50 Results for ([facility]) AM CDT this proce dure are in the results section. REPORT OF PROCEDURE 01/20/2020 1:53 - ENDOSCOPY [...] procedure are in the results section. after 02/25/2019 Results SARS-CoV2/RT-PCR ([facility]) (02/12/2020 11:50 AM CDT)Only the most recent of2 resultswithin the time period is included. SARS-COV2/RT-PCR Not Detected Not Detected, Negative [facility] SARS-COV-2 PERFORMING LAB [facility] Specimen Other Narrative Performed At Negative results do not preclude SARS-CoV-2 [facility] infection and should not be used as [...] the Act. Fact Sheet for Healthcare Providers: https://www.[employer]/Documents/Xpert%20Xpre ss%20SARS%20CoV-2/Fact%20Sheets/302-2112%20SAR S-COV-2%20HEALTHCARE%20PROVIDERS%20FACT%20SHEE T.pdf Fact Sheet for Healthcare Patients: https://www.[employer]/Documents/Xpert%20Xpre ss%20SARS%20CoV-2/Fact%20Sheets/302-2913%20SAR S-COV-2%20PATIENT%20FACT%20SHEET.pdf Performing Laboratory: [facility] [address] [place] [address]. [place] [address] Performing Organization Address City/State/Zipcode Phone Number [address] [address] CENTER EKG-SCANNED (01/20/2020 1:53 PM CDT) Narrative Performed [...] included. WBC 5.6 3.5 - 10.5 K/L [facility] RBC 2.50 (L) 4.63 - 6.08 M/L [facility] Hemoglobin 7.4 (L) 13.7 - 17.5 GM/DL [facility] Hematocrit 23.1 (L) 40.1 - 51.0 % [facility] MCV 92.4 (H) 79.0 - 92.2 fL [facility] MCH 29.6 25.7 - 32.2 pg [facility] MCHC 32.0 (L) 32.3 - 36.5 GM/DL [facility] RDW 16.9 (H) 11.6 - 14.4 % [facility] Platelets 156 150 - 450 K/CU MM [facility] MPV 11.9 9.4 - 12.4 fL [facility] nRBC 0 0 - 0 /100 WBC [facility] % Neutros 73 % [facility] % Lymphs 13 % [facility] % Monos 9 % [facility] % Eos 2 % [facility] % Baso 0 % [facility] # Neutros 4.11 1.78 - 5.38 K/L [facility] # Lymphs 0.74 (L) 1.32 - 3.57 K/L [facility] # Monos 0.53 0.30 - 0.82 K/L [facility] # Eos 0.12 0.04 - 0.54 K/L [facility] # Baso 0.02 0.01 - 0.08 K/L [facility] Immature Granulocytes-Relative 2 (H) 0 - 1 % C [facility] Specimen Blood Performing Organization Address City/State/Zipcode Phone Number [facility] [address] [place] [address] CENTER Prothrombin time/INR (01/19/2020 3:55 AM CDT)Only the most recent of3 results within the time period is included. Protime 15.3 (H) 11.9 - 14.2 seconds [facility] INR 1.2 <=5.9 [facility] Specimen Blood Narrative Performed At Effective 12/31/2018: PT Reference Range [facility] Change New: 11.9-14.2Previous: 11.7-14.7 RECOMMENDED COUMADIN/WARFARIN INR THERAPY RANGES STANDARD DOSE: 2.0-3.0Includes: PROPHYLAXIS for venous thrombosis, systemic embolization; TREATMENT for venous thrombosis and/or pulmonary embolus. HIGH RISK: Target INR is 2.5-3.5 for patients wiht mechanical heart valves. Performing Organization Address City/[facility]/Zipcode Phone Number [facility] [address] [place] [phone] CENTER Magnesium (01/19/2020 3:55 AM CDT)Only the most recent of3 resultswithin the time period is included. Magnesium 2.2 1.6 - 2.6 mg/dL [facility] Specimen Blood Narrative Performed At Rod Placer ID - AYAZ Horne [facility] Performing Organization Address [facility] Phone Number [address] [phone] CENTER Basic Metabolic Panel (01/19/2020 3:55 AM CDT)Only the most recent of3 results within the time period is included. Sodium 135 (L) 136 - 145 meq/L [facility] Potassium 3.5 3.5 - 5.1 meq/L [facility] Chloride 104 98 - 107 meq/L [facility] CO2 24 22 - 29 meq/L [facility] BUN 20 7 - 21 mg/dL [facility] Creatinine 0.78 0.57 - 1.25 mg/dL [facility] Glucose 99 70 - 105 mg/dL [facility] Calcium 7.7 (L) 8.4 - 10.2 mg/dL [facility] EGFR 118Comment: ESTIMATED GFR IS mL/min/1.73 sq m [facility] NOT ACCURATE CREATININE [facility] CLEARANCE IN PREDICTING GLOMERULAR FILTRATION RATE. ESTIMATED GFR IS NOT APPLICABLE FOR DIALYSIS PATIENTS. Specimen Blood Narrative Performed At Rod Placer ID - AYAZ Horne [facility] Performing Organization Address City/[facility] Cent[facility]ode Phone Number [facility] MEDICAL [address] [place], [place] [phone] CENTER Prepare Leuko-Red RBC (01/18/2020 11:54 PM CDT) CROSSMATCH COMPATIBLE SAFETRACE TX Unit ABO B Pos SAFETRACE TX UNIT NUMBER [id number] SAFETRACE TX Status TX_TIMEINCHART SAFETRACE TX Blood Bank Product RED BLOOD CELLS SAFETRACE TX PRODUCT CODE [id number] SAFETRACE TX CROSSMATCH COMPATIBLE SAFETRACE TX Unit ABO B Pos SAFETRACE TX UNIT NUMBER [id number] SAFETRACE TX Status TX_TIMEINCHART SAFETRACE TX Blood Bank Product RED BLOOD CELLS SAFETRACE TX PRODUCT CODE [id number] SAFETRACE TX CROSSMATCH COMPATIBLE SAFETRACE TX Unit ABO B Pos SAFETRACE TX UNIT NUMBER [id number] SAFETRACE TX Status TX_TIMEINCHART SAFETRACE TX Blood Bank Product RED BLOOD CELLS SAFETRACE TX PRODUCT CODE [id number] SAFETRACE [place] Specimen Other Performing Organization Address [facility] Phone Number SAFETRACE [place] Venous doppler arm, right (01/18/2020 4:00 PM CDT) Ejection Fraction [facility] ECHO HEAR TLAB MKCKESSON CPACS Specimen Impressions Performed At Right Impression [facility] ECHO HEARTLAB MKCKESSON CPACS 1. There [...] At PV LAB - Upper Extremities Veins SLE ECHO HEARTLAB MKCKESSON [facility] Demographics Patient NameFrancie CUEVAS of Study 01/18/2020 74 Visit [id number] Male of 1945 Referring Thao Hung Room Number 1023 Physician Zuri Gallery Manager BEBA Mantilla Physician Procedure Type of Study: Veins: Upper Extremities [...] of Study 01/18/2020 Age 74 Visit Number [id number] Gen varsha Male Accession Number [id number] Geoffrey e of 1945 Referring Thaoebony hung Number 1023 Physician Zuri Gallery Manager Wyatt Gonzalez Int erpretin Meenakshi Hill, BALBIRS Adam avalos MD Procedure Type of Study: Veins: Upper [...] are measured in cm Performing Organization Address City/State/[facility] Centercode Phone Number SLEH ECHO HEARTLAB MKCKESSON [facility] REPORT OF PROCEDURE - ENDOSCOPY URL (01/17/2020 5:18 PM CDT) Narrative Performed At This result has an attachment that is no t available. Tissue Exam (01/17/2020 5:03 PM CDT) Case Report Surgical Pathology Report Case: [id number] [facility] Authorizing Provider:David Ozuna, Collected: 01/17/2020 05:03 PM [facility] Ordering Location: [address] Received:01/18/2020 09:09 AM Service Pathologist: Wayne Mcadams MD Specimen:Biopsy, Gas tric, Random gastric bx ADDENDUM Immunostain for helicobacter [facility] [employer] [facility] performed on block A1 is [facility] POSITIVE. DIAGNOSIS PART A RANDOM GASTRIC BIOPSY: CH I [employer] [facility] ANTRAL AND OXYNTIC MUCOSA WITH ACTIVE CHRONIC GA STRITIS. [facility] NEGATIVE FOR INTESTINAL METAPLASIA, DYSPLASIA, O R INVASIVE CARCINOMA. WARTHIN STARRY STAIN FOR HELICOBACTER IS NEGATIV E. IMMUNOSTAIN FOR HELICOBACTER IS PENDING, ADDENDU M REPORT TO FOLLOW. Signing Pathologist Direct Phone Line: CPT Code(s) 99133, 07530, 50899 [facility] dVisit [facility] ER CLINICAL HISTORY GI BLEED [facility] Mogujie H [facility] ER SPECIMEN SOURCE Gastric biopsy [facility] ALTH [facility] GROSS DESCRIPTION Received in formalin labeled with the patient's name, accession number and "gastric biopsy" are 3 fam-pink tissue fragments measuring up to 0.3 cm in greatest dimension which are filtered and submitted in toto in A1. [facility] Augustin (ASCP)cm MICROSCOPIC DESCRIPTION PERFORMED. [facility] SPECIAL STUDIES The interpretation of this c ase included the use of immunohistochemistry or special stains. [facility] BLOCK A1- GRISEL PEREA, HELICOBACTER IMMUNOSTA IN. [facility] Control Slides Examined: In -house known positive controls were evaluated along with the test tissue. These control slides run alongside of the patients sample show appropriate staining. Internal posit vivien and negative controls when available are [employer] Immunohistochemistry technic al testing was performed at [facility], Pathology Laboratory where it was developed and its performance characteristics were determined. It has not be en cleared or approved by [facility] U.S. Food and Drug Administration. The FDA has determined that such clearance or approval is not necessary. The test is used for clinical purposes. It should not be regarde d as investigational or for research. This laboratory is certified under the Clinical Laboratory Improvement Amendments of 1988 (CLIA-88) as qualified to perform high complexity clinical laboratory testing. Gross assessment was [facility] performed at [place], Department of [facility] Pathology, [address] [place] [address], Technical component was [facility] performed at [place], Department of [facility] Pathology, [address] [place] [address], Professional component [facility] was performed at [place], Department of [facility] Pathology, [address] [place] [address], Specimen Tissue Performing Organization Address City/State/Zipcode Phone Number [address] [address] [place] [employer] Leuko-Red RBC (01/17/2020 8:35 AM CDT)Only the most recent of4 resultswithin the time period is included.Hemoglobin and hematocrit (01/17/2020 5:38 AM CDT)Only the most recent of2 resultswithin the time period is included. Hemoglobin 6.2 (L) 13.7 - 17.5 GM/DL [facility] Hematocrit 19.3 (L) 40.1 - 51.0 % [facility] Specimen Blood Narrative Performed At Rod Placer ID - [id number] [facility] Performing Organization Address City/[facility]/Zipcode Phone Number [facility] [address] [place] [address] CENTER ABORH, manual (01/17/2020 1:27 AM CDT) ABO Grouping B [facility] Rh Factor POS [facility] Specimen Blood Performing Organization Address City/[facility]/Zipcode Phone Number [facility] [address] [place] [address] Vitamin B12 and Folate (01/17/2020 1:26 AM CDT) Vitamin B12 >2000 (H) 213 - 816 pg/mL [facility] Folate 14.20 >=7.00 ng/mL [facility] Specimen Blood Narrative Performed At Rod Placer ID - PIAYA L [facility] Performing Organization Address City/[facility]/Zipcode Phone Number [facility] [address] [place] [address] [place] Iron, TIBC, % sat. (without ferritin) (01/17/2020 1:26 AM CDT) Iron 38.0 (L) 40.0 - 160.0 ug/dL [facility] TIBC 151 (L) 250 - 450 ug/dL [facility] Iron % Saturation 25 20 - 55 % [facility] Specimen Blood Narrative Performed At Rod Placer ID - MARVA Aguila [facility] Performing Organization Address City/[facility] Centercode Phone Number [address] [address] CENTER Haptoglobin (01/17/2020 1:26 AM CDT) Haptoglobin 277 (H) 14 - 258 mg/dL [facility] Specimen Blood Narrative Performed At Rod Placer ID - MARVA Aguila [facility] Performing Organization Address [facility] Phone Number [address] [address] CENTER Ferritin (01/17/2020 1:26 AM CDT) Ferritin 947.60 (H) 5.00 - 275.00 ng/mL [facility] Specimen Blood Narrative Performed At Rod Placer ID - MARVA Aguila [facility] Performing Organization Address [facility] Centercode Phone Number [address] [address] CENTER Type and screen, automated (01/17/2020 12:57 AM CDT) ABO/RH AUTOMATED (LONNIE) B POSITIVE [facility] Ab Scrn NEGATIVE [facility] Specimen Blood Performing Organization Address City/[facility] Centercode Phone Number [address] [address] PT/aPTT (01/17/2020 12:57 AM CDT) Protime 16.5 (H) 11.9 - 14.2 seconds [facility] INR 1.4 <=5.9 [facility] PTT 31.0 22.5 - 36.0 seconds [facility] Specimen Blood Narrative Performed At Effective 12/31/2018: PT Reference Range [facility] Change New: 11.9-14.2Previous: 11.7-14.7 RECOMMENDED COUMADIN/WARFARIN INR THERAPY RANGES STANDARD DOSE: 2.0-3.0Includes: PROPHYLAXIS for venous thrombosis, systemic embolization; TREATMENT for venous thrombosis and/or pulmonary embolus. HIGH RISK: Target INR is 2.5-3.5 for patients wiht mechanical heart valves. Performing Organization Address City/[facility] Centercode Phone Number [address] [phone] [place] Reticulocyte count (01/17/2020 12:57 AM CDT) % Retic 4.9 (H) 0.5 - 1.8 % [facility] Specimen Blood Narrative Performed At Rod Placer ID - [id number] [facility] Performing Organization Address [facility]i Phone Number [address] [address] CENTER Lactate dehydrogenase (LDH) (01/17/2020 12:57 AM CDT) LDH 484 (H) 125 - 220 U/L [facility] Specimen Blood Narrative Performed At Rod Placer ID - PIAYA L [facility] Performing Organization Address [facility] Phone Number [address] [address] [place] Hepatic function panel (01/17/2020 12:57 AM CDT) Protein, Total 5.8 (L) 6.0 - 8.3 gm/dL [facility] Albumin 2.7 (L) 3.5 - 5.0 g/dL [facility] Total Bilirubin 0.6 0.2 - 1.2 mg/dL [facility] Bilirubin, Direct 0.4 0.1 - 0.5 mg/dL [facility] Alkaline Phosphatase 71 40 - 150 U/L [facility] AST 40 (H) 5 - 34 U/L [facility] HE ALTH [facility] ALT 26 6 - 55 U/L [facility] HE ALTH [facility] Specimen Blood Narrative Performed At Rod Placer ID - PIAYA L [facility] MED ICAL CENTER Performing Organization Address City/State/Zipcode Phone Number [facility] [address] [place] [address] CENTER ECG 12 lead (01/17/2020 12:08 AM CDT) Specimen Narrative Performed At Ventricular Rate 84 BPM GE MUSE Atrial Rate 84 BPM P-R Interval 228 ms QRS Duration 86 ms Q-T Interval 414 ms QTC Calculation(Bazett) 489 ms P [place] 89 degrees R [place] 40 degrees T [place] 35 degrees Sinus rhythm with 1st degree [...] 414 ms QTC Calculation(Bazett) 489 ms P [place] 89 degrees R [place] 40 degrees T [place] 35 degrees Sinus rhythm with 1st degree A-V block Nonspecific ST abnormality Prolonged QT Abnormal ECG No previous ECGs available Confirmed by MD LORENZANA YOCHAI ([id number]) on 01/18/2020 10:52:55 AM Performing Organization Address City/State/Zipcode Phone Number GE MUSE after 02/25/2019 Insurance Payer Benefit Plan / Group Subscriber ID Type Phone A ddress [facility] HMO xxxxxxxxx MEDICARE MGD CARE CDC REVIEW CDC REVIEW xxxxx[place] [address] [place] [place] [address] Advance Directives For more information, please contact:[facility] [place], [place] [phone] Code Status Date Activated Date Inactivated Comments Full Code 01/16/2020 11:57 PM 01/19/2020 11:53 AM This code status was determined by: Patient
--- OUTSIDE RECORDS SUMMARY | 2020-02-26 07:09 | XMS REPORT | Continuity of Care Document ---
:1945 Author Organization [employer] Care Team Providers Name Role Phone [employer] Unavailable Un available Problems Problem Status Onset [...] Q12H, # 180 tab, 3 Refill(s), Pharmacy: [facility] amLODIPine 5 5 mg = 1 Active 03/05/20 Medica l mg oral tab, PO, 19 Group tablet BID, # 60 tab, 11 Refill(s), Pharmacy: [facility]08 amLODIPine 5 5 mg = 1 No Longer 08/25/19 Medi crow mg oral tab, PO, Active 19 Group tablet BID, # 60 tab, 11 Refill(s), Pharmacy: [facility]08 flecainide 100 mg = 1 Active 06/05/20 Medica l 100 mg oral tab, PO, 18 Group tablet Q12H, # 180 tab, 3 Refill(s), Pharmacy: [facility] 808 amLODIPine 5 5 mg = 1 Active 02/14/20 Medica l mg oral tab, PO, 18 Group tablet BID, # 30 tab, 11 Refill(s), Pharmacy: [facility]08 flecainide 50 50 mg = 1 Active 02/14/20 Medi crow mg oral tab, PO, 18 Group tablet Q12H, # 60 tab, 5 Refill(s), Pharmacy: [facility]08 Allergies, Adverse Reactions, [...] Number For Provider Date Date Visit Outpatient [id number] RANDEE 04/19 [facility] Santino Outpatient [id number] ECHO VISIT 05/09 Act [facility] Out[facility] [id number] [facility] [id number] [facility] [id number] [facility] 06[facility] [id number] [facility]E 07[facility]03 [facility] [id number] OTHER 07/03 Active [facility] VISIT Santino [facility] Outpatient [id number] Wesley 07/03 07/04 Cardiology [place] /2016 [facility] Outpatient [id number] Wesley 07/03 07/04 [facility] [id number] 08/16 08/18 Cardiology Medical /2017 [facility] Outpatient [id number] RANDEE 12/25 [facility] HIWOT Santino [facility] Outpatient [id number] Randee 12/25 12/26 Cardiology Hiwot /2017 [facility] Outpatient [id number] ECHO VISIT 02/13 [facility] [id number] [facility]ANDEE 02/13 [facility] Outpatient [id number] Wesley 02/13 02/14 [facility] [place] [facility] [id number] Wesley 02/13 02/14 Cardiology [place] /2017 [facility] Outpatient [id number] RANDEE 06/05 Active [facility] HIWOT /2018 Sant[facility] Outpatient [id number] Randee 06/05 06/06 Cardiology Hiwot /2017 [facility] Outpatient [id number] ECHO VISIT 09/05 Act vivien [facility] Outpatient [id number] RANDEE 09/05 Active [facility] HIWOT /2019 [facility] Outpatient [id number] Wesley 09/05 09/06 MH Cardiology [place] /2018 [facility] Outpatient [id number] Randee 09/05 09/06 [facility] Cardiology [place] /2018 [facility] Outpatient [id number] Randee 03/05 Active [facility] /2019 [facility] Outpatient [id number] Randee 03/05 03/06 Cardiology [place] /2018 [facility] Outpatient [id number] Randee 09/03 Active [facility] /2020 [facility] Outpatient [id number] Randee 09/03 09/04 Cardiology Hiwot /2019 /2019 [facility] Outpatient [id number] Randee 03/03 Active [facility] /2020 Santino [...]
--- OUTSIDE RECORDS SUMMARY | 2020-02-26 07:10 | XMS REPORT | Continuity of Care Document ---
:1945 Author Organization [facility] t Address [address] [place] [address] Care Team Providers Name Role Phone JACQUIE Attending Clinician Unavailable Jacquie GAMBLE Attending Clinician Enrique Avila MD Attending Clinician Zuri GAMBLE, Wong Attending Clinician [phone] Chana GAMBLE, Vivian Attending Clinician Tima GAMBLE, Raymond Attending Clinician Bib Mi Attending Clinician VISIT, APPAREL PATTERN MAKER ECHO Attending Clinician Unavailable JACQUIE Admitting Clinician Unavailable Payers Payer Name Policy Type Policy Number Effective Date Expiration Source Date [facility] - xxxxxxxxx [facility] - CAREUNITED MEDICARE Medic al HMOxxxxxxxxx [place] [facility] REVIEWCDC xxxxxxxx [facility] REVIEW[facility] Medical [phone] Center Problems Condition Condition Condition Status Onset [...] kes - on on 00:00: Medical 00 [place] 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 M emoria a 00:26:45 l (disorder) Shaun n Bradycardi a (disorder) Active Problem 09/06/2019 Medical Group Hypertensi Problem Active 2019-09-06 M emoria ve 00:26:45 l disorder, [place] systemic Hypertensi arterial ve (disorder) disorder, systemic arterial (disorder) Active Problem 09/06/2019 Medical Group Obesity Problem Active 2019-09-06 León tj (disorder) 00:26:45 l Obesity [place] (disorder) Active Problem 09/06/2019 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 Social History Social Habit Start Date Stop Date Quantity Comments Source History [facility] Alcohol [facility] Std Drinks [facility] History [facility] Alcohol [facility] Binge [facility] Sex Assigned At [facility] History [facility] Alcohol 2020-01-17 2020-01-[address] [facility] - Frequency 00:00:00 00:00:00 [facility] Smoking Status Start Date Stop Date Source Never smoker [facility] edical [place] Medications Ordered Filled Start Stop Current Ordering Indication Dosage Frequency Signature Comments Components Source Medication Medication Date Date Medication? Clinician (SIG) Name Name pantoprazol 2019- Yes 40mg Q.5D Take [address] [facility] 01-18 tablet (40 [facility] - (PROTONIX) 00:00: 23:59 mg total) edical 40 MG 00 :00 by mouth 2 Center tablet (two) times daily for 90 days. pantoprazol 2019- No 40mg Q.5D Take [address] [facility] 6-15 06-16 tablet (40 [facility] - [...] Santino 09 180 tab, 3 Refill(s), Pharmacy: [facility] amLODIPine 2018-0 Yes 5 mg = 1 Mem oria 5 mg oral 8-01 tab, PO, l tablet 15:37: BID, # 60 Shaun n 07 tab, 11 Refill(s), Pharmacy: [facility] amLODIPine 2018-0 No 5 mg = 1 Mem oria 5 mg oral 1-21 tab, PO, l tablet 22:16: BID, # 60 Shaun n 21 tab, 11 Refill(s), Pharmacy: [facility] flecainide 2017-08 Yes 100 mg = 1 M emoria 100 mg oral 1-01 tab, PO, l tablet 16:47: Q12H, # Santino 00 180 tab, 3 Refill(s), Pharmacy: [facility] amLODIPine 2017-0 Yes 5 mg = 1 Mem oria 5 mg oral 7-12 tab, PO, l tablet 15:46: BID, # 30 Shaun n 41 tab, 11 Refill(s), Pharmacy: [facility] flecainide 2017-0 Yes 50 mg = 1 Me moria 50 mg oral 7-12 tab, PO, l tablet 15:46: Q12H, # 60 Celina nn 00 tab, 5 Refill(s), Pharmacy: [facility]08 Vital Signs Vital Name Observation Time Observation Value Comments Source Systolic blood 2020-01-19 07:00:00 122 mm[Hg] [facility] Diastolic blood 2020-01-19 07:00:00 64 mm[Hg] [facility] Heart rate 2020-01-19 07:00:00 74 /min [facility] Body temperature 2020-01-19 07:00:00 36.28 Stacey [facility] Respiratory rate 2020-01-19 07:00:00 18 /min [facility] Body weight Measured 2020-01-19 07:00:00 95.7 kg [facility] BMI 2020-01-19 07:00:00 28.61 kg/m2 [facility] Oxygen saturation in 2020-01-19 07:00:00 99 /min [facility] Arterial blood by Medical Ce nter Pulse oximetry Body height 2020-01-17 00:00:00 182.9 cm [facility] Systolic (mm Hg) 2019-09-03 16:13:00 León rial [place] Diastolic (mm Hg) 2019-09-03 16:13:00 Mem orial [place] Heart Rate 2019-09-03 16:13:00 [facility] [place] Height 2019-09-03 16:13:00 187.96 cm [facility] [place] Weight 2019-09-03 16:13:00 [facility] [place] BMI Calculated 2019-09-03 16:13:00 Memori al [place] Weight 2019-03-05 14:43:00 [facility] [place] Height 2019-03-05 14:43:00 187.96 cm [facility] [place] BMI Calculated 2019-03-05 14:43:00 Memori al [place] Heart Rate 2019-03-05 14:43:00 [facility] [place] Systolic (mm Hg) 2019-03-05 14:43:00 León rial [place] Diastolic (mm Hg) 2019-03-05 14:43:00 Mem orial [place] Systolic (mm Hg) 2018-09-05 17:41:00 León rial [place] Diastolic (mm Hg) 2018-09-05 17:41:00 Mem orial [place] Heart Rate 2018-09-05 17:41:00 [facility] [place] Height 2018-09-05 17:41:00 187.96 cm [facility] [place] Weight 2018-09-05 17:41:00 [facility] [place] BMI Calculated 2018-09-05 17:41:00 Memori al [place] BMI Calculated 2018-06-05 16:04:00 Memori al [place] Height 2018-06-05 16:04:00 185.42 cm [facility] [place] Weight 2018-06-05 16:04:00 [facility] [place] Systolic (mm Hg) 2018-06-05 16:04:00 León rial [place] Diastolic (mm Hg) 2018-06-05 16:04:00 Mem orial [place] Heart Rate 2018-06-05 16:04:00 [facility] [place] BMI Calculated 2018-02-13 15:20:00 Memori al [place] Weight 2018-02-13 15:20:00 [facility] [place] Systolic (mm Hg) 2018-02-13 15:20:00 León rial [place] Diastolic (mm Hg) 2018-02-13 15:20:00 Mem orial [place] Heart Rate 2018-02-13 15:20:00 [facility] [place] Height 2018-02-13 15:20:00 185.42 cm [facility] [place] Height 2017-12-25 15:51:00 185.42 cm [facility] [place] BMI Calculated 2017-12-25 15:51:00 Memori al [place] Weight 2017-12-25 15:51:00 [facility] [place] Systolic (mm Hg) 2017-12-25 15:51:00 León rial [place] Diastolic (mm Hg) 2017-12-25 15:51:00 Mem orial [place] Heart Rate 2017-12-25 15:51:00 [facility] [place] Height 2017-07-03 17:24:00 185.42 cm [facility] [place] Weight 2017-07-03 17:24:00 [facility] [place] Systolic (mm Hg) 2017-07-03 17:24:00 León rial [place] Diastolic (mm Hg) 2017-07-03 17:24:00 Mem orial [place] BMI Calculated 2017-07-03 17:24:00 Memori al [place] Heart Rate 2017-07-03 17:24:00 [facility] [place] Procedures Procedure Date / Time Performed Performing Clinician Sour e SARS-COV2/RT-PCR ([facility] & 2020-02-12 11:50:00 [facility] REF LABS) [facility] REPORT OF PROCEDURE - 2020-01-20 13:53:10 Provider, Default [facility] - ENDOSCOPY SCAN [facility] RHYTHM STRIP - SCAN 2020-01-20 13:53:05 Provider, Default [facility] TRANSFUSION SERVICE 2020-01-19 18:10:35 Provider, Default [facility] REPORT - SCAN [facility] BASIC METABOLIC PANEL (7) 2020-01-19 03:55:00 MELISSA Dhillon I [facility] MAGNESIUM 2020-01-19 03:55:[address] [facility] PROTHROMBIN TIME/INR 2020-01-19 03:55:00 [facility] W/PLT COUNT & AUTO 2020-01-19 03:55:00 Jacquie [facility] DIFFERENTIAL [facility] PREPARE LEUKO-REDUCED RBC 2020-01-18 23:54:00 MartMELISSA Saxena I [facility] TRANSFUSION SERVICE 2020-01-18 18:00:14 Provider, Default [facility] VENOUS DOPPLER ARM, RIGHT 2020-01-18 16:00:00 Thao [facility] BASIC METABOLIC PANEL (7) 2020-01-18 04:48:00 MELISSA Dhillon I [facility] MAGNESIUM 2020-01-18 04:48:00 [facility] PROTHROMBIN TIME/INR 2020-01-18 04:48:00 [facility] W/PLT COUNT & AUTO 2020-01-18 04:48:00 ARVIN [facility] DIFFERENTIAL [facility] REPORT OF PROCEDURE - 2020-01-17 17:18:[address] [facility] ENDOSCOPY [facility] TISSUE EXAM 2020-01-17 17:03:00 David Alfred [facility] UPPER 2020-01-17 13:03:[address] [facility] ENDOSCOPY,SCLEROTHERAPY [facility] UPPER ENDOSCOPY,BIOPSY 2020-01-17 13:03:00 David Alfred [facility] CBC W/PLT COUNT & AUTO 2020-01-17 12:11:00 [facility] TRANSFUSE LEUKO-REDUCED 2020-01-17 08:35:27 [facility]LL[facility] TRANSFUSE LEUKO-REDUCED 2020-01-17 06:06:38 [facility] RED BLOOD CELLS [facility] HEMOGLOBIN AND HEMATOCRIT 2020-01-17 05:38:00 Jacquie [facility] PROTHROMBIN TIME/INR 2020-01-17 03:16:[address] [facility] [address] HEMOGLOBIN AND HEMATOCRIT 2020-01-17 03:16:00 Jacquie [facility] TRANSFUSE LEUKO-REDUCED 2020-01-17 02:57:49 [facility]LL[facility] ABORH, MANUAL 2020-01-17 01:27:00 Marla Berger [facility] VITAMIN B12 AND FOLATE 2020-01-17 01:26:00 [facility] IRON, TIBC, % SAT. 2020-01-17 01:26[facility] 2020-01-17 01:26:00 [facility] HAPTOGLOBIN 2020-01-17 01:26:00 [facility] BASIC METABOLIC PANEL (7) 2020-01-17 00:57:00 Jacquie I [facility] MAGNESIUM 2020-01-17 00:57:00 [facility]EL 2020-01-17 00:57:00 Jacquie [facility] PT/APTT 2020-01-17 00:57:00 Jacquie [facility] RETICULOCYTE COUNT 2020-01-17 00:57:00 [facility] LACTATE DEHYDROGENASE 2020-01-17 00:57:[address] [facility] (LDH) [facility] TYPE AND SCREEN, 2020-01-17 00:57:00 Jacquie [facility] - AUTOMATED [facility] CBC W/PLT COUNT & AUTO 2020-01-17 00:57:00 Jacquie [facility] t [facility] DIFFERENTIAL [facility] SARS-COV2/RT-PCR ([facility] & 2020-01-17 00:37:[address] [facility] - REF LABS) [facility] ECG 12-LEAD 2020-01-17 00:08:25 [facility] Encounters Start End Encounter Admission Attending Care Care Encounter Source Date/Time Date/Time Type Type Clinicians Facility Department ID 2019-09-03 2019-09-03 [place] [id number] 10:00:00 23:59:59 Abraham Mccartney 16 2019-03-05 2019-03-05 [place] [id number] 10:00:00 23:59:59 Abraham Mccartney 15 2018-09-05 2018-09-05 [place] [id number] 11:15:00 23:59:59 Abraham Mccartney 14 2018-09-05 2018-09-05 Outpatient Hiwot, [facility] [id number] 11:15:00 23:59:59 Abraham Mccartney 14 2018-09-05 2018-09-05 Outpatient VISIT, MG MG [id number] 10:45:00 23:59:59 NURSE APPAREL PATTERN MAKER 13 ECHO 2018-09-05 2018-09-05 Outpatient VISIT, [facility] [id number] 10:45:00 23:59:59 NURSE APPAREL PATTERN MAKER 13 ECHO 2018-06-05 2018-06-05 Outpatient Hiwot, [facility] [id number] 11:00:00 23:59:59 Abraham Bib 12 2018-02-13 2018-02-13 Outpatient Hiwot, [facility] [id number] 10:45:00 23:59:59 Abraham Bib 11 2018-02-13 2018-02-13 Outpatient VISIT, [facility] [id number] 10:00:00 23:59:59 NURSE APPAREL PATTERN MAKER 10 SENTHIL 2017-12-25 2017-12-25 Outpatient Hiwot, [facility] [id number] 11:00:00 23:59:59 Abraham Bib 09 2017-08-16 2017-08-17 Outpatient [facility] [id number] 15:30:00 23:59:59 00 2017-08-16 2017-08-17 Outpatient [facility] [id number] 15:30:00 23:59:59 00 2017-07-03 2017-07-03 Outpatient Hiwot, [facility] [id number] 12:00:00 23:59:59 Abraham Bib 08 2017-07-03 2017-07-03 Outpatient Hiwot, [facility] [id number] 11:30:00 23:59:59 Abraham Bib 07 Results Test Description Test Time Test Comments Results Result Comments Source SARS-CoV2/RT-PCR ([facility] & Ref Labs) 2020-02-13 11:36:00 Test Item Value Reference Range Interpretation Comme nts SARS-COV2/RT-PCR (test code = Not Detected Not Detected, Negative 60089-1) SARS-COV-2 PERFORMING LAB [facility] (test code = 70985-3) BEAR (test code = BEAR) Negative results do not preclude SARS-CoV-2 infection [...] of the Act. Fact Sheet for Healthcare Providers:https://www.MovieLine/Documents/Xpert%20Xpress %20SARS%20CoV-2/Fact%20Sheets /3023802%26VDRS-NDG-6%20HEAL THCARE%20PROVIDERS%20FACT%20S HEET.pdf Fact Sheet for Healthcare Patients:https://www.SeeSaw.com/Documents/Xpert%20Xpress% 20SARS%20CoV-2/Fact%20Sheets/ 3023801%70QOSP-QUI-3%20PATIE NT%20FACT%20SHEET.pdf Performing Laboratory:[place] [address] [address] [place], [place] [address] [place], [place] [address]ARS-COV2/RT-PCR ([facility] REF LABS)2020-02-13 11:36:00 Test Item Value Reference Range Interpretation Comments SARS-COV2/RT-PCR (test Not Detected Not Detected, Negative code = 3276726) SARS-COV-2 PERFORMING LAB [facility] (test code = 5819361) Negative results do not preclude SARS-CoV-2 infection [...] of the Act.Fact Sheet for Healthcare Pro viders:https://www.[employer]Documents/Xpert%20Xpress%20SARS%20CoV-2/Fact%20Sh eets/302-3802%38LDSE-TEH-9%20HEALTHCARE%20PROVIDERS%20FACT%20SHEET.pdfFact Sheet for Healthcare Patients:https://www.AwayFind/Documents/Xpert%20Xpress%20SARS%20CoV-2/Fact%20Sheets/302-3801%20SARS-COV -2%20PATIENT%20FACT%20SHEET.pdfPerforming Laboratory:[facility] [place] [address]299Gprfgt [id number] 10:48:00 Test Item Value Reference Range Interpretation Comments Case Report (test code Surgical Pathology = 104) Report Case: [id number] Authorizing Provider: David Alfred, Collected: 01/17/2020 05:03 PM Ordering Location: [address] Received: 01/18/2020 09:09 AM Service Pathologist: Wayne Mcadams MD Specimen: Biopsy, Gastric, Random gastric bx ADDENDUM (test code = [id number] 3381) YzVKEts0yvEZFflWXzRyOg MzNcZnRuYmpcdWMxXGRlZm Deh0zyo887hIBik0myNZAv UlA8mBJxFBXrhJRhR399b4 vdl6dkmtCmsBU0LDQpLXE4 CCrujxLhicD2UDrdgBKlLk D4NQhhzzAwOXnosmFhucGs Mwv2KHNuZ381XAX3bFhhr2 syAJA0CGIcPUFvTwAgAd7p fDBdR485OXPbYLMPCWIhrK n5JMMdnwWvnnPifFDSc162 F245s8wiXLAafqBkrJqTuw lbi9saE025OAQghXYgdkGo EoRqWTLawUIxyEB6WGKmPE 8hxpzaGMwdJMgzTATdxoJ6 PJNtrOQpI5HaBOBrQY1sjj eiSTB3JIlwCRIcTRU2OnSh OOTtk6Adrzt2WvHusn6crh 89FGR9k5EhsXkcIKT8EKN4 AlHzQy2rsMNoKTQdBK5lTk IjjKAnTFNmvr26oPgoYDnq txKdiP1xHtQqOIXaiGZaZT PaZZ6svPXbJNJsyY7cdnbz XHBnYnJkcmhlYWRccGdicm UxIo4ebWmrYLM5CDoqL4vg rR3sHwI2GLqrA2vwhM0fQI l6CKhapVS9JABfvB4pQF0l zfpog2ojSTvnRYajMSWkzy T7wzJ3SWQjzGUmM7PrbZ8j JMQdJZ9nbebcx6wxMCO8LP tcFBChNOK7VyLtXEMjn1Wt dnh5VdCxr6TdpCXyEKxmN7 7ml577VVUjteRvE2iryRZn lrwpkGLckwvqNJmerwO4EZ FsXHBsYWluXGYwXGZzMjBc bGFuZzEwMzNcaGljaFxmMF dgMhEcQFJbQLrhY0vzJfIw KhCtIHRGjQ35qk3jvCQvxj Zaa5EvlOBfsZMoYiXlqNWi PAKtqxXock3gQCIveeUbyI 5elpFVFESscsWUA1CHKToY OK3veDItaD== DIAGNOSIS (test code = [id number] 3220) FuZzEwMzNcZnRuYmpcdWMx KSvmshXoHOztd6FmQ3GcFa AwMFxhbnNpXGRlZmxhbmcx RPDsYHK3kzFeWQYuMOkaTB VpUOknXe4atJJreYvgVhLs YSXoe7cjhlTUncfimKw1i6 gbTMVzSwJ0hRAiPRvfF8hc byJmwIHvTNUpHRr3fK00HN TbgD0dmHTcAKumgjWdLjA6 XRmiQVGlLeF7SGEsaFXxFD CgP4icBZJmQEgzHSOzVSuq yNDpTJN7hLtva0G7dSEwrT HbjJdyMmLaOhFhIGFZm3Wm UDy1xZnfY4DnCUPwFkD6uT QgUGFyYWdyYXBoIEZvbnQ7 sT97UJpjktE9iFRze2Iec3 6nb594eY4kuRIeKXW3QSFa PDCcyCBmCMMvZTV0BNZifO VlQ5l9NrCnqNZdO7J6QlDs jQCeK6H8PgGkoLUjO8P9Ha PcsLIqZSTlxCXgLx2wyXCy lIZoae0rer74POF5m5NsqA efSMC0OOD8KmYkJu0ddCRn IKSmFO1lRzNxfXOaAPIwmt 31cDekBWaarpRueC9dVxOx SBFoyVLrHBOnQN3yzHTtCM KvqK3uuzqaMPFgSzPgbwkj FMZdaAwssfNnJg5nxMehJT U1OUgfI3ccfR6wYeJ3AKii L0ztuN4eNDk2ZDaawYS5UY PmtB9gBR9jemnvx7ncZhRg SJ0nehuhd0vuAbAfPS8yaf r5p3ouFfFfRX4hcejzg7em NzIwXGhlYWRlcnkwXGZvb3 SvtdixQWCzm2GdK7QzzGvk H34ynJygX49dBEYsfInxlU 6xiMngeB1yZfEvFxNlIUpl bFxwbGFpblxmMVxmczIwXG gfnykaQCLtDIslX3ymYoDm HHBztAajARzyu3SaEHKtFQ ZzMjAgUEFSVCBBIFJBTkRP FWMRXWXPGswNLOIOX7ISTI pccGFyIEFOVFJBTCBBTkQg G6pMNmWIMxTVLJFWR5AvM7 mIVYXVS0WJKpXjE2zSX11H QyBHQVNUUklUSVMuXHBhci BUFRlXTMlJEUZLQ2PkRX1Y YYHYIQ9XPKFKIKBEIVjVA2 mXHVGFOLNXVMAIYOMbKM2Y IElOVkFTSVZFIENBUkNJTk 4LVY1cpYCwRKbAOpWXUD7u H5WSUjFCCMWNDRvNVCCVXe SDSGgRV51CXCONRLSqLJKt TkVHQVRJVkUuXHBhciBJTU 3QIf0TCVXBHwFMR2WdKMVM SUNPQkFDVEVSIElTIFBFTk RJTkcsIEFEREVORFVNIFJF VR0OEUVZSlQUR3tXB4joAR Ybzg78FRS4VeFde4S0IGZ2 EVAiNILrd4hgAWWqzMOtJc EwMzNcZnRuYmpcdWMxXGRl MvOlh9yhv154fDTsd6evPH GxMfH0dXIjVFMgcJDtB657 OKApSIioq4yad1OdOVGlmQ Yem3T9UIZJtdguoOg7gDvl E39qs3V9OxghV2oaWWVuND MbT5QiMR2wSFIwJck1PVZ6 EBK7KTCkDLUiR8WbZQ0kCF VghJXcCJf2m6lxdGxxTXFe YWT7b5ecDOhkrwFmOM7mbn 9sbIa6s3vwiuCzLOAvYWGc aOLSWOKcH0BnfWjuWy4dxL k0iOraOypxEDE4Svd3CM1b pk18ahv3kUgdCQMlneuaAh N6AMbuMXBvayxcMKk0KKgu WJNxdQH2RTYqnKMqJ6DaMC QfXS0cdir4AOA0CWeuQQBh YrU7IUQttFIqEXRkkVfnFU pwx715OIU2PbRhNP4xN7Cm q0L8iX5ehAMiGNBmwVDyRn BuTWSver2hxSVuEFrgc8Wn RDT8meS9aJZrqTMvICKgAp W2ICcbGO8lzd13WCLfONJ1 vn4phLDizXrhvgQwvPXrEP qvI5GbMDSam622WWMbF6Jk RRGpl1Q9jbMkDrLtEPJfiB F6jxQ4MLHoEZ9bivioo4do BHplDStxQXWtqtP7nuW7NP NnaYXgM8XcxN8sFWEwZE4o hufdd4eeBII7DWnxAIFsIC B6TiCqIGSmt9Sygtw4YjUm o0BiaGFxAXinY22vf099QB AzsmEwG1zltOPurtmhfGYn vwzvPNafkuK2JPGvLNlfdk vrFWRhFWuzM4qnKjCaUYUw gWepGTpap7LkQLSrFENiYh PywHVwAPLkBth8UJUipTYu VEUmYyZsY4ceasfwKnOUPF Joz7fcY3tzaLIFxUQzD8Bf UGhvbmUgTGluZTogODMyLT C4UA59TZsaJWRnda86 CPT Code(s) (test code r6soxQImOQPjxZNuExEjKW = 3357) XrZZQps2sbVRRxzLJeWuBh MzNcZnRuYmpcdWMxXGRlZm Vao9fzx417oORfi1zjZKCd UmZ0oCJqYLHyfQZdX568o0 gry8rdrfCviAZ2PXIzKXC9 KWqhhoUsfkR3AIvfcUTiOt Z6ZQayeaIvFGajfpSrgdFg Dyb2UZHuC716RCD2xKfkx0 dsYRW1WIKkMBQcIdAxQp1l dATcU121HPKnLQJGUXZsrG j2BVFmijZtosGcfCCFe600 T516f9peXAUxlzBctEyLvb cbl5uyA894USMeqDAmqeEg ZrPlIEBebDTlgJQ0YZFtYO 5eejnvYrShGR8awaleJpEt DX3tcrv2JmVcQQ0dfihaUh SwGYgmSTPhgwklJIMcr4Za xjqwHU6wC4Ofc8B2mP8arL UxKSQbiHUqPuRmURCech2i sFWzZCvpz0QgCZB6ffP5bY MttAXdEQZpVF92Vhqbo4Am KdmjZOF4GZNewlNet5Agh9 smZpHbpnZnK7rnM9XpVLPn XXCjUYEiKtEogvMfw4Pmj9 HpbYPnxPo4l7jxRGIvJVKj eRszy6flJQZ5FGZiL3T7gP Svu2adLWcnZFAsiJV8oroz VFbvFDOsmhV2yepmLQfvTI CuyIP8xpagRTenVSJrIpF1 iluhOAutTNVqJSO5FFvjw1 92UVK9SOmdEklaTOdyRJZc bmNvbnRccGduZGVjXHBsYW luXHBsYWluXGYwXGZzMjRc vOqyjFytvH8nEtZkUxMoGX oxBO4iRDKqF3egvLBbOIAo LLByO4zzGhDnlV4kpVcjRE zphyZmCRg5PjR7HYQ0GWPs MiwgODgzNDJccGFyfQ== CLINICAL HISTORY (test w6bjcINcUAJptPKrRmQgZF code = 3356) ZpFJRyf3xbPMNskKDoQcHi MzNcZnRuYmpcdWMxXGRlZm Afa8uqs717cOYbf5bwZESl KwT7tXNzMDQbiJOhB193NH ErUGrvp5uvz7WoIDRnkPBo x4R0FDGRndqyjOp7wRagD5 3xi4D6VwfgF4ylMWCiQFEh G7WjCQ9eKXFnLys4MCA3IB W1WIWlKJJdM4XwQT9dTJUp bEDxFPp8f4kdnDvzMIXpPT K1j5tuSGwalkYvZR0qoo4h iFl6r2lphvPfAEPkLIQffG FBVPLoF0FehJffId2lzXg8 nEdyXdegZMZ0Hzo1RR4lec 68agj4lQagJDWcuwkdNvJ7 GVzkAPMehckiBPs0NZxaHL JnbDcyMFxtYXJncjcyMFxt YXJndDcyMFxtYXJnYjcyMF ckEVSaHVA6PYflv198HMX9 GSjfh9ndn4tavTAsXtl1JS GcSfGrBnbmWXedo6Qxi0zs RLUiwi4jNZW0iEQatOgxs7 H3dDLuRNVhuFKkedOlFOHg UmI4KFhxFA5avg95EIXsNJ Q4tc7inGRvcKhmalWfwCEq TFokX5UmXXOjl978DVGcI5 SeRMRco9N7olPwLmIsPTPs pSM2toC0DYRzELp0nCPuxs L2diNkoFQlP9yimG49SlKq eVKlJ8RciQ81HiMkiNRoD1 OzwJ28YmGdrUXiO4FopY42 VbGpiIIrRBFobXDfEy7feL QziVRec1VhbSMyKQrjD98f y459OOKtlaSnP0ocwNIzwb pnwBZbicncDRuvmpE4DWs1 cnBhclxxbFxwbGFpblxmMV xmczIwXGxhbmcxMDMzXGhp W7fxAnGyRWVrrMxwHUmal2 ZdGPZwNKOnKyPoL5ztJvcS RURccGFyfQ== SPECIMEN SOURCE (test x5pvmXWiIYSeqEFjWfSkTA code = 3377) LiUDLim3rxUETvfZGwMzDh MzNcZnRuYmpcdWMxXGRlZm Qtc2sez334bMSft5kdXNJv RgQ1hHPuSYHgxPKvQ072h5 sei5yyxcTmsFX3ADIwBEH1 OVeohtKjsrY5ZRvwsXEaIo M5OHvzpxXaMWoeezLkidGy Izy3EJDoT392CDL0gDjll1 mfKFL5DRNdNQRbTmGfYx8d qFNeX571DCXyMEDKWQDrzW a5IQEwplHucrClkTGPe901 N731g2amXUAcdgIjgTdIrq zwt2wvQ769IPYclTJmbgTp JaWdFULsgNZobEN1JURyGC 5aixvaReJnQW3wrdnbNmHb DM2ydjt6CaAlFW1sxfbqIe JvBMwnZKWellpaFXUne1Ia xnzrNY7lB1Lha0N5hN3rkS IoPSGmcDKtCwGiKTMowv2i rDSdUBckn2PlUYW6ofP8gI RjqZFqUJCoPB87Ftmnb1Kn IousDXY2XBPgdjVyn3Sij4 qmJtRtlvTbT6fgD1SdFFUv XTGzDIRaIsVzspUia7Kvm0 SrnLKobAl4w8ieRSMyRWKx jWqap1vbWFP2PTYzE0C7uX Opw9ejSFquJMUbsGH3ynel LGzwCGShmhY3yvgfDBglMI HbjFY5zdokOCutTDFrZyX1 pjyiLDkyOEMuKQK5EEghr2 23EXE1HKuoWwvoBMnrWYXs bmNvbnRccGduZGVjXHBsYW luXHBsYWluXGYwXGZzMjRc iOoxiBjqfR7vLzHiYeRjOU caAS8vWTSuA9cttJTxWDPs OHQyM6iuLaLqdN4aqHphLZ osexPfRUmsj0CxkTWoVynq nWR0LSOckt2= GROSS DESCRIPTION (test c1telLPmHXIazJUqJyOzBC code = 3366) NkMZYad8bfQFInaVAjOqNo MzNcZnRuYmpcdWMxXGRlZm Fcw3euu569hMQox2fqNOMh CbZ4jATdRDTbyLHlF389w6 vbq5hhtqRbpAQ8LMKhDYT1 DWpdzrZrkcN7QXbjsRYaLh D5HQeehxIuSQkeacZkaoOd Dcz3DCRtA580ZBF1zLkzc7 faMZX2ZLJlGHYlVwTdFk1b zBPnD501OCAyIVKZNEAasK g6ZNRmdnTaagGfrPEBn514 J776l7stPRQwrpBvmNqKnv gan4tbU677HEOihDUmajLd HwUuGWCppFEkpSO9FLTxLG 7rnbgjFyKgPA9swbfyAtIn ZK3cfcz6PfJdAJ8uxwxqFz DwUNqvGBYmxszeBLGwc4Ir xjdsNK6qZ7Zmn4Y8vT5yuR AwUXHprLQaNeIiXHAxow0r lYDnFDbhf6RmNLV1rvG4jQ EmtNZoRGOyQH28Nncah7Td JycwUHQ7BFWgjnOzm9Rrn5 frHaYdwxMxS4mrQ2EqHRAa WBLrGCVnZbYbfmLft8Owo3 XoySJmsJn9z0mxAKBlHKNz vZmgz8ozZRO6RGRiZ9E5pO Fiq7xyJAbxSANlyLK1qfhp HUtnCKRpfxX7ihhcUSprXP DdrIJ9lprsDUluJRJoNxQ2 iubmUKytDEMyBJI9RBpso5 16MZT2XBspYobdOMbeJFEz bmNvbnRccGduZGVjXHBsYW luXHBsYWluXGYwXGZzMjRc fKrakBgajN7dFyVzFdFbVZ iaNS2rUHBjJ1cnaZVqQKJq KYCcY2yiGpWotR0clUtmRJ jolpXeHLZjN9NaopErWHdr NZImft8vtDjoPXknLpHrXH Dna5q6oYZ3nZUduNZ9nALt wImoGH3fzAYwIHJlV0Gkw2 koehYmmT8mZXPuLJ3yKBFr UIH6oapgAHGsn2LsoRFgDC JlIDMgdGFuLXBpbmsgdGlz j2KrCGFfKEvqTG10jpHdZJ PlxCAesuhyrGFxqI3tUU6m SRTrTTcjBNulKPX0DPI2DN FonCSdx0hibgZ4dWafbETb lqTvAcplaNDoWXCoOR8iNT Z3Ze4meQVnBHFxuoR2h2Rs IGluIEExLlxwYXJccGFyIF KorXXgCENdG5YglUicsthq KRFwFOFSR1UcB92biNFxhQ == MICROSCOPIC DESCRIPTION e9gncMVlCMRyzJSbGbMrSC (test code = 3371) CeMNKlz7rgZJJsaDQyJwAu MzNcZnRuYmpcdWMxXGRlZm Azt5lbq424iIBkk8ruBQSo ZwF5wNIeSYSmbBZyW062y9 qrc6dspgErmGF5AYXyTEL8 YYgwkiXfmbS5QIcwyHOpSt T7KBopjtFkMFxxelWyhcFt Jrv3QZTdH137JPT0oFkzo5 hvVGZ7ZRBqUDTvXmBpSe8v uOYgC396ADQiYFKQDRBpqA s4NUSxysFouiEyfPIYi796 D677d1mhHZSguiVweUoXlc wha9xfV600LIRjpVIhsoAi MvXnEJYwgKRswZO5KLCtVM 7wseswJcPhOT9frtsqJpIi HT0lywf8IoBtMI1idexdZu UfRQerUUGendlbZQQgd0Ji cvbzGJ8sE1Lgu3H7wG5xqQ DyDWRblXSdWlHwTPXttq8o ePEuRSolg6SkLPS4raA0oK YwkFZqZAKiUO74Nbunl6Ek ZjrjUBJ6JALfydXpt4Ptr7 zeGoIipzTmZ6raG1JkUBXy PDFfRDZrYjPtwfDkd0Qsj5 IrpTSldFj0w5avJMGoBIVo eBgbu2grFMB9TNYrP1B4yC Eit2gyJQveCHFeoHQ2ucux DUqiZMYdmjQ9yobdBGpzAH EqrHJ5mljqVEgnEQIxFdZ6 tmmhIQxaXHXsQQS0FFfcc1 06QRY4IMevJmseSNziDVYn bmNvbnRccGduZGVjXHBsYW luXHBsYWluXGYwXGZzMjRc zCusxVjkpJ0tWmMxQaPdQM odGD7fZRGbU5yuwJAxXJLz FRXiQ8xsMaXlxS2exMesPN mzwnMzUQJTLvHDHc4CED3y cGFyfQ== SPECIAL STUDIES (test s0ndrGUhWUTgpHFhLwEwJV code = 3376) VmGNEvc0ndMAFxwOQwUlJs MzNcZnRuYmpcdWMxXGRlZm Orc7giw255aACaw7zxVRGr ApO6uYNbDYVuuHRsV123WY BnIDggu4dqq7OjNTMujLWv x6N9BSNANMpiPsDgX018WV VkAPbln7kub5PeQFTjjASq v9I9YIVXbkwreAc2pUolX6 4sw4O9YjsaP3fjDFSfDAXo X5EnBD3fDOCyJwz2YNT4KX J7QZWaHDIsN3WeQM5kWTDt cSNsWKf4p2uidRzzDCDrJS D9n6udMLchkuF1OS3bgg4m eYk4x7abboGeEACsMWDxfE GJCBQpY5QblIzkKr9npRj7 g0acEypovvI3cYIpLnCfPr MyMFxsaTBccmkwIENvUGF0 cGSXDBw8K256u8kgGJZebh GrjZgHhtsak4utT260VXEi cGVydzEyMjQwXHBhcGVyaD U7IXCmWK7dkkztPtAxOL4t qsphHvImCQ0lhxo2TsAjEM 1hcmdiNzIwXGhlYWRlcnkw PKXym4VtjlcwDV7kU1Jrw7 C6yD1xxTLnMINjnYPfMhHt VOQoal1uqYBkWPygCOF3TD TpwpBdt6Ifz0mzVmIdetDb Q2toS8AqGNHwRCAsYSJgSj EloaHdb5Gjx8SchKVrvHb5 e1scDFIfJIQrvAgjr2xfMI C0XJTmK2D6hGSya3cvSRcs MWIxmFD8ugcnRQfoKBNcuj R1kqdkKBrkJUBbaDV0uofs RHlcEMBrMgE5lgojRJxsXR XqMYY3BJnzf743ARK6PKlo YmtwYWdlXHBnbmNvbnRccG duZGVjXHBsYWluXHBsYWlu XGYwXGZzMjRccWxccGxhaW 9bEbNgFgBiHeqcAF1jPKAt E0uerDXnIUSyHOBmC9mxCr LdaU5vrKauPIicKuDuTvBy KwHRsSMeaR14FAVbumF4TN Eyu85cm5XxwKodvjHpLMEl HMhgD3f4TSOtPMTmLGC2h3 Smn7BwxC3dhH6icCpbnN7b wCFdkHV6hdsom7Uak9OtP9 lhbCBzdGFpbnMuXHBsYWlu XGYxXGZzMjJcbGFuZzEwMz NcaGljaFxmMVxkYmNoXGYx BJicG0oyJuNjI9AoOZDsXz ZojBTnC3cwrWYsHBCfRHby XGYxXGZzMjJcbGFuZzEwMz NcaGljaFxmMVxkYmNoXGYx OFdoZ8pqSbQnK3AePTHgSx ClRyqPY5fxRIDaTLkTRpBC ET2rU9BPAvYXEEGOFVgAA8 4MHKFCAQGpBG9DSA1FW5NV XR1wYMOzDNotFZRhZLUdDp JcbGFuZzEwMzNcaGljaFxm DPecCiEnGJUrYKyhV3uzCk IiI6YjVJBcJuFlyQNrS5mb cGFyXHBsYWluXGYxXGZzMj JcbGFuZzEwMzNcaGljaFxm VAqnOcDdOPMaCYgvY7hxFw EgU0ByNAWnHmIbJ84gjNJl bCBTbGlkZXMgRXhhbWluZW T7CEVBte4rj4UeZCRfoc92 nsDwv0AvwQp2DAAqb091ww 5hhjA5QJCxVJF1LUm9DUFo KBSziP9hUaB4wSFkEPYxNK X7XQT0GICjb0I0MH8xCYMo IQAvKIJlcuGfr6aii1poAI JeEWN7ucSxlF0eR8FcMNPq d3EtrWdgHNMlyRxiapHsRT RopJTjPFPvmO24KDAbtFBt lGMjIBTlZOY9SQqcpU2tSi DWrmLybw6duSVug8SiaCu0 ZSBhbmQgbmVnYXRpdmUgY2 1tsOHscPAmx9vzsaWcfjJj fZXkcLEnFRUxLXV6VPq0TI RlZFxwbGFpblxmMVxmczIy TPhwinjqTVNnHVofJ7zdFa NwINZrhAhcDXbiq6VgJSRg URPqEwhqigUhTNc9axPaKF BhclxwbGFpblxmMVxmczIy KWfqodrdEGMoDRolF9fjNo BcXZYvaQlkURkwc9MaESDz XGNmMlxmczIyICBccGxhaW 0tBqEnUcKmYgofZG3gDIQs M2kswSEyFTHcDTEhW4xzAu NebQ8xpOxeZPjlDpJiDcBn MlxsdHJjaFxwYXJccGxhaW 9cEjKjUcCeZfeiOH1fKWAw E9kfpMRuSUAkIFFqY5ttIi KkwE6sbIdkLLqiIvNdZdTh MmTQsE16wb4cvKH3x6EeKI 9vw5WrhMS7ZBJceqpdUMva gEMrsThxNjT3CVTmiHQcRl 8chUWmNHV4CBFugIoefxHL hL5uSNDqAYxjmIFzlionSN xmczIyXGxhbmcxMDMzXGhp T2ymOfOuQRAnkYlgMWttd1 NoXGYxXGNmMlxmczIyXHU4 CcN4MTweIEJuvCrveU0cWh IyJkMwOpnsAB5dPZJqX8ud tCXgCQCqWDWcK1xkKnQooR 9jaFxmMVxjZjJcZnMyMiBz XE6qSGbdAUtwS1KotCXcGU PAHADgn3jkN1qiYTFxe5Eo dE5kdHE2qXOkELAtaIY1VL UwSVC1LYxevLJcZXBgQHAl rNAucPDpTg1mbEReT6HjI6 carpFriKNfgFK0fGVcQPdp bkSbILY4OIPknF3sAJ1bKZ SqeXRuBB8pbSJfMWNgIOYu HOAdIPEpf9BeQWWusf15SE QeIaqepDbkZTBcLb9tEp6w ZPYlmtJvURA8OqKBHI9ovz mjcWLojBbxem8dFCpaMCFF YPSoZXNcBZE4AVUtjL0qRO X6cOV0QBX6F2rbR2xvBMSs lhUmEF0yNKVbuITimzXeNC lpVH3afTNwEFJfv3Uejbxo TFIiXKQ8FHT2EEdaOIFpNC KaCt7iMEWrmR0hX8SnCVN2 nnOiy7UwVtMGtKFixR74kT Xhlg50VKHaGKEzM8XxDUJc IGFzIGludmVzdGlnYXRpb2 2fzYVegpAxs4YpluOqAEMx U0xdGMVboYRzxGErt8ClyP 1wsKQxarPcVNU4cBSrGPBu zR6vYQKwvXsuFWPzbL8qY3 AoSZdqPq0yDAWstwkyJM9g ud23VF2jcaIyMN6swzItTH 94qhFrVtYxYSw0DJeIWSjR OTj8ERHbqlJcvTHwyLYpPK ApjA3qhKIvDu2alJNuyHjc YSRnaZCiIDrguUseI7awik ktEAmvbVOnb5SjjW5kvOD4 MYO8fO5fMbnrjJFuspjrQr xmczIyXGxhbmcxMDMzXGhp U5rrThSjMIEyySanWfjlb9 NoXGYyXGZzMjJccGFyXHBh cuNplKndcC6pUyPmYuTeOE gchNUqdkypStmfqcC2ELHq cn0= Gross assessment was [facility] performed at ([facility], = 2777) Department of Pathology, [address] [place] [address], Technical component was [facility] performed at ([facility], = 2778) Department of Pathology, [address] [place] [address], Professional component [facility] was performed at ([facility], code = 2779) Department of Pathology, [address] [place] [address], [facility] CenterTISSUE [id number] 10:48:00Surgical Pathology Report Case: [id number] Authorizing Provider: David Alfred, Collected: 01/17/2020 05:03 PM OrderingLocation: [address] Received: 01/18/2020 09:09 AM Service Pathologist: [...] REPORT TO FOLLOW.Signing Pathologist Direct Phone Line: [phone] signed by Wayne Mcadams MD on 01/18/2020 at 4:47 [id number] BLEEDGastric biopsyReceived in formalin labeled withthe patient's name, accession number and "gastric biopsy" are 3 fam-pink tissue fragments measuring up to 0.3 cm in greatest dimension which are filtered and submitted in toto in A1.MARYLIN Augustin ([facility])cmPERFORMED.The interpretation of this case included the use of immunohistochemistry or special stains.BLOCK A1- WARTHIWesley STARRYAN, HELICOBACTER IMMUNOSTAIN.Control Slides Examined: In-house known positive controls were evaluated along with the test tissue. These control slides run alongside of the patients sample show appropriate staining. Internal positive and negative controls when available are evaluated Immunohistochemistry technical testing was performed at [facility], Pathology Laboratory where it was developed [...] qualified to perform high complexity clinical laboratory testing.[facility], Department of Pathology, [address] [place] [address], [facility]ruvAl[facility], [facility] of Pathology, [address] [place] [address], FacvcfAlvarado [facility] Center, Department of Pathology, [address] [place] [address], Bwkidt doppler arm, right 2020-01-19 11:48:48Ejection FractionSLEH ECHO HEARTLAB MKCKESSON CPACSRight Impression1. There is [...] Date of Study 01/18/2020 Age 74 VisitNumber [id number] Gender Male Accession Number [id number] Date of 1945 Referring Thao Baker Room Number 1023 Physician Zuri Edge Bonder Wyatt Gonzalez Interpreting Meenakshi Hill Pineda Physician ProcedureType of Study: Veins: Upper Extremities [...] in cm/s ; Diameters are measured in [facility] Basic Metabolic [id number] 04:55:00 Test Item Value Reference Range Interpretation Comments Sodium (test code = 135 meq/L 136-145 L 2951-2) Potassium (test code = 3.5 meq/L 3.5-5.1 2823-3) Chloride (test code = 104 meq/L 98-107 2075-0) CO2 (test code = 24 meq/L 22-29 8-9) BUN (test code = 20 mg/dL 7- 3094-0) Creatinine (test code 0.78 mg/dL 0.57-1.25 = 2160-0) Glucose (test code = 99 mg/dL 70-105 2345-7) Calcium (test code = 7.7 mg/dL 8.4-10.2 L 35541-6) EGFR (test code = 118 mL/min/1.73 [place] [address]-9) NOT ACCURATE CREATININE CLEARANCE IN PREDICTING GLOMERULAR FILTRATION RATE . ESTIMATED GFR I S NOT APPLICABLE FOR DIALYSIS PATIENTS. BEAR (test code = BEAR) Cotton Stripper ID - AYAZ W Lab Interpretation Abnormal (test code = 44056-1) [facility] CenterMagnesium2020-06-16 04:55:00 Test Item Value Reference Range Interpretation Comments Magnesium (test code = 2.2 mg/dL 1.6-2.6 72561-5) BEAR (test code = BEAR) Cotton Stripper ID Jose JACOME W Lab Interpretation (test Normal code = 52697-0) [facility] CenterMAGNESIUM2020-06-16 04:55:00 Test Item Value Reference Range Interpretation Comments MAGNESIUM (BEAKER) (test code = 2.2 mg/dL 1.6-2.6 627) Cotton Stripper ID Jose JACOME WBASIC METABOLIC [id number] 04:55:00 Test Item Value Reference Range Interpretation [...] S NOT APPLICABLE FOR DIALYSIS PATIEN TS. Cotton Stripper ID Jose JACOME WCBC with platelet count + automated [id number] 04:31:00 Test Item Value Reference Range Interpretation [...] 450 K/CU MM MPV (test code = 30062-0) 11.9 fL 9.4-12.4 nRBC (test code = [...] 2801) Lab Interpretation (test code = Abnormal 66810-5) [facility] W/PLT COUNT & AUTO [id number] 04:31:00 Test Item Value Reference Range Interpretation [...] PERCENT (BEAKER) (test code = 2801) Prothrombin time/[id number] 04:30:00 Test Item Value Reference Range Interpretation [...] valves. Lab Interpretation Abnormal (test code = 16425-5) [facility] CenterPROTHROMBIN TIME/[id number] 04:30:00 Test Item Value Reference Range Interpretation [...] for patients wiht mechanical heart valves.Prepare Leuko-Red [id number] 23:54:00 Test Item Value Reference Range Interpretation Comments CROSSMATCH (test code = 2264) COMPATIBLE Unit ABO (test code = B Pos 3451235) UNIT NUMBER (test code = [id number] 934-0) Status (test code = 2454396) TX_TIMEINCHART Blood Bank Product (test code RED BLOOD CELLS = 2263) PRODUCT CODE (test code = C3219L25 933-2) [facility] CenterECG 12 [id number] 10:52:57Interface, External Ris In - 01/18/2020 10:53 AM CDTVentricular Rate 84 BPMAtrial Rate 84 BPMP-R Interval 228 msQRS Duration 86 msQ-T Interval 414 msQTC Calculation(Bazett) 489 msP [place] 89 degreesR [place] 40 degreesT [place] 35 degreesSinus rhythm with 1st degree A-V blockNonspecific ST abnormalityProlonged QTAbnormal ECGNo previous ECGs availableConfirmed by MD HARRIETT, ROULA ([id number]) on 01/18/2020 10:52:55 AM [facility] CenterMAGNESIUM2020-06-15 05:53:00 Test Item Value Reference Range Interpretation Comments MAGNESIUM (BEAKER) (test code = 2.4 mg/dL 1.6-2.6 627) Cotton Stripper ID - PIAYA LBASIC METABOLIC [id number] 05:53:00 Test Item Value Reference Range Interpretation [...] S NOT APPLICABLE FOR DIALYSIS PATIEN TS. Cotton Stripper ID - PIAYA LPROTHROMBIN TIME/[id number] 05:26:00 Test Item Value Reference Range Interpretation [...] mechanical heart valves.CBC W/PLT COUNT & AUTO [id number] 05:15:00 Test Item Value Reference Range Interpretation [...] = 2801) CBC W/PLT COUNT & AUTO [id number] 12:38:00 Test Item Value Reference Range Interpretation [...] (BEAKER) (test code = 2801) Hemoglobin and qfavtuvrne1159-62-73 05:57:00 Test Item Value Reference Range Interpretation Comments Hemoglobin (test code = 6.2 13.7- 17.5 GM/DL L 786-4) Hematocrit (test code = 19.3 % 40.1-51 L 4544-3) BEAR (test code = BEAR) Cotton Stripper ID - 6000 Lab Interpretation (test Abnormal code = 79735-3) [facility] CenterHEMOGLOBIN AND [id number] 05:57:00 Test Item Value Reference Range Interpretation Comments HEMOGLOBIN (BEAKER) (test code = 6.2 GM/DL 13.7-17.5 L 410) HEMATOCRIT (BEAKER) (test code = 19.3 % 40.1-51.0 L 411) Cotton Stripper ID - 6000Vitamin B12 and Vptyov4325-77-75 05:35:00 Test Item Value Reference Range Interpretation Comments Vitamin B12 (test code = >2000 213-816 H 2132-9) Folate (test code = 14.20 ng/mL >=7.00 2284-8) BEAR (test code = BEAR) Cotton Stripper ID - PIAYA L Lab Interpretation (test Abnormal code = 96965-5) [facility] CenterVITAMIN B12 AND [id number] 05:35:00 Test Item Value Reference Range Interpretation Comments VITAMIN B12 (BEAKER) (test code = > pg/mL 213-816 H 774) FOLATE (BEAKER) (test code = 362) 14.20 ng/mL >=7.00 Cotton Stripper ID - MARVA EVsmwjfji7106-58-06 05:27:00 Test Item Value Reference Range Interpretation Comments Ferritin (test code = 947.60 ng/mL 5-275 H 2276-4) BEAR (test code = BEAR) Cotton Stripper ID - PIAYA L Lab Interpretation (test Abnormal code = 81870-7) [facility] CenterFERRITIN2020-06-14 05:27:00 Test Item Value Reference Range Interpretation Comments FERRITIN (BEAKER) (test code = 947.60 ng/mL 5.00-275.00 H 361) Cotton Stripper ID - PETEYAYA LHEMOGLOBIN AND [id number] 03:47:00 Test Item Value Reference Range Interpretation Comments HEMOGLOBIN (BEAKER) (test code = 5.3 GM/DL 13.7-17.5 LL 410) HEMATOCRIT (BEAKER) (test code = 16.1 % 40.1-51.0 L 411) Cotton Stripper ID - MarizaPROTHROMBIN TIME/[id number] 03:38:00 Test Item Value Reference Range Interpretation [...] INR is2.5-3.5 for patients wiht mechanical heart valves.Qhcxktykaym8838-78-71 02:11:00 Test Item Value Reference Range Interpretation Comments Haptoglobin (test code = 277 mg/dL 14-258 H 4542-7) BEAR (test code = BEAR) Cotton Stripper ID - MARVA L Lab Interpretation (test Abnormal code = 04440-8) [facility] CenterHAPTOGLOBIN2020-06-14 02:11:00 Test Item Value Reference Range Interpretation Comments HAPTOGLOBIN (BEAKER) (test code = 277 mg/dL 14-258 H 366) Cotton Stripper ID - MARVA Kurt, TIBC, % sat. (without ferritin)2020-01-17 02:10:00 Test Item Value Reference Range Interpretation Comments Iron (test code = 2498-4) 38.0 ug/dL 40-160 L TIBC (test code = 2500-7) 151 ug/dL 250-450 L Iron % Saturation (test 25 % 20-55 code = 2502-3) BEAR (test code = BEAR) Cotton Stripper ID - MARVA L Lab Interpretation (test Abnormal code = 08468-7) [facility] CenterIRON, TIBC, % SAT. (WITHOUT FERRITIN)2020-01-17 02:10:00 Test Item Value Reference Range Interpretation Comments IRON (BEAKER) (test code = 547) 38.0 ug/dL 40.0-160.0 L TOTAL IRON BINDING CAPACITY 151 ug/dL 250-450 L (BEAKER) (test code = 769) IRON % SATURATION (2) (BEAKER) 25 % 20-55 (test code = 2590) Cotton Stripper ELVIRA DURHAM KRISTEN, [id number] 02:00:00 Test Item Value Reference Range Interpretation Comments ABO Grouping (test code = 2588) B Rh Factor (test code = 2589) POS [facility] CenterType and screen, gyyzyxzbu6094-98-01 01:59:00 Test Item Value Reference Range Interpretation Comments ABO/RH AUTOMATED (BEAKER) (test B POSITIVE code = 2260) Ab Scrn (test code = 890-4) NEGATIVE [facility] CenterHepatic function doxep9097-56-84 01:50:00 Test Item Value Reference Range Interpretation Comments Protein, Total (test code 5.8 6.0- 8.3 gm/dL L = 2885-2) Albumin (test code = 2.7 g/dL 3.5-5 L 84060-0) Total Bilirubin (test code 0.6 mg/dL 0.2-1.2 = 1975-2) Bilirubin, Direct (test 0.4 mg/dL 0.1-0.5 code = 1968-7) Alkaline Phosphatase (test 71 U/L 40-150 code = 6768-6) AST (test code = 1920-8) 40 U/L 5-34 H ALT (test code = 1742-6) 26 U/L 6-55 BEAR (test code = BEAR) Cotton Stripper ELVIRA DURHAM L Lab Interpretation (test Abnormal code = 08621-7) [facility] CenterLactate dehydrogenase (LDH)2020-01-17 01:50:00 Test Item Value Reference Range Interpretation Comments LDH (test code = 2532-0) 484 U/L 125-220 H BEAR (test code = BEAR) Cotton Stripper ELVIRA DURHAM L Lab Interpretation (test Abnormal code = 82045-1) [facility] CenterMAGNESIUM2020-06-14 01:50:00 Test Item Value Reference Range Interpretation Comments MAGNESIUM (BEAKER) (test code = 2.4 mg/dL 1.6-2.6 627) Cotton Stripper ELVIRA DURHAM LBASIC METABOLIC [id number] 01:50:00 Test Item Value Reference Range Interpretation [...] S NOT APPLICABLE FOR DIALYSIS PATIEN TS. Cotton Stripper ID - MARVA LHEPATIC FUNCTION [id number] 01:50:00 Test Item Value Reference Range Interpretation [...] (test code = 26 U/L 6-55 347) Cotton Stripper ID - MARVA LLACTATE DEHYDROGENASE (LDH)2020-01-17 01:50:00 Test Item Value Reference Range Interpretation Comments LACTATE DEHYDROGENASE (BEAKER) (test 484 U/L 125-220 H code = 635) Cotton Stripper ID - MARVA LSARS-COV2/RT-PCR ([facility] & REF LABS)2020-01-17 01:38:00 Test Item Value Reference Range Interpretation Comments SARS-COV2/RT-PCR (test Not Detected Not Detected, Negative code = 7314621) SARS-COV-2 PERFORMING LAB [facility] (test code = 0446181) Negative results do not preclude SARS-CoV-2 infection [...] of the Act.Fact Sheet for Healthcare Pro viders:https://www.[employer]Documents/Xpert%20Xpress%20SARS%20CoV-2/Fact%20Sh eets/3023802%06XCZU-VQG-5%20HEALTHCARE%20PROVIDERS%20FACT%20SHEET.pdfFact Sheet for Healthcare Patients:https://www.[employer]/Documents/Xpert%20Xpress%20SARS%20CoV-2/Fact%20Sheets/3023801%20SARS-COV -2%20PATIENT%20FACT%20SHEET.pdfPerforming Laboratory:[facility], [place] [address]WR/eWUA3401-66-11 01:24:00 Test Item Value Reference Range Interpretation Comments Protime (test code = 16.5 11.9- 14.2 H 5902-2) seconds INR (test code = 1.4 <=5.9 6301-6) PTT (test code = 31.0 22.5- 36.0 93088-4) seconds BEAR (test code = BEAR) Effective 12/31/2018: PT Reference Range ChangeNew: 11.9-14.2 Previous: 11.7-14.7 RECOMMENDED COUMADIN/WARFARIN INR THERAPY RANGESSTANDARD DOSE: 2.0-3.0 Includes: PROPHYLAXIS for venous thrombosis, systemic embolization; TREATMENT for venous thrombosis and/or pulmonary embolus.HIGH RISK: Target INR is 2.5-3.5 for patients wiht mechanical heart valves. Lab Interpretation Abnormal (test code = 10367-4) [facility] CenterPT/[id number] 01:24:00 Test Item Value Reference Range Interpretation [...] is2.5-3.5 for patients wiht mechanical heart valves.Reticulocyte [id number] 01:20:00 Test Item Value Reference Range Interpretation Comments % Retic (test code = 4.9 % 0.5-1.8 H 38695-6) BEAR (test code = BEAR) Cotton Stripper ID - 6000 Lab Interpretation (test Abnormal code = 09806-7) [facility] CenterCB W/PLT COUNT & AUTO [id number] 01:20:00 Test Item Value Reference Range Interpretation [...] PERCENT (BEAKER) (test code = 2801) RETICULOCYTE [id number] 01:20:00 Test Item Value Reference Range Interpretation Comments RETICULOCYTE COUNT PCT (BEAKER) (test 4.9 % 0.5-1.8 H code = 575) Cotton Stripper ID - 6000
[2020-02-26] MEDS ORDERED: NA CHLORIDE 0.9% 250 ML ONE (08:05)
[2020-02-26 10:04] LABS: MPV 9.1 fL (7.6-11.3)
[2020-02-26 10:54] LABS: Platelet Estimate DECR
[2020-02-26 11:18] VITALS: BMI 29.8
[2020-02-26 11:29] VITALS: BP 125/60; TEMP 98.1; O2SAT 97
== END 2020-02-26 10:20 | disposition home or self-care (01) ==
LOC: DS 07:05
PROVIDERS: ATTEND Internal Medicine Hematology & Oncology
DX: D61.810 Antineoplastic chemotherapy induced pancytopenia (principal); D69.59 Other secondary thrombocytopenia; T45.1X5A Adverse effect of antineoplastic and immunosuppressive drugs, initial encounter; C83.30 Diffuse large B-cell lymphoma, unspecified site
CPT/HCPCS: 36415; 86900; 85049; 86901; 36430; P9035; J7050

== ENCOUNTER 2020-03-01 07:43 | Day surgery (SDC) | payer OTHER ==
[2020-02-29 14:44] LABS: Absolute Lymphocytes (CBC) 0.1 K/uL (0.7-4.9); Hematocrit 22.8 % (39.6-49.0); Lymphocytes % 44.3 % (15.3-44.8); RBC Red Blood Cell Count 2.66 M/uL (4.33-5.43)
[2020-02-29 16:08] LABS: Anisocytosis 1+; Blood Morphology Comment NOTED (NOT SEEN); Platelet Estimate DECR
--- OUTSIDE RECORDS SUMMARY | 2020-03-01 07:50 | XMS REPORT | Clinical Summary ---
:1945 Author Organization [facility] Address [address] [place] [address] Care Team Providers Name Role Phone Unavailable [...] u lcer with hemorrhage MD Wong after 03/01/2019 Social History Tobacco Use Types Packs/Day Years [...] procedure are in the results section. after 03/01/2019 Results SARS-CoV2/RT-PCR ([facility]) (02/12/2020 11:50 AM CDT)Only the most recent of2 resultswithin the time period is included. SARS-COV2/RT-PCR Not Detected Not Detected, Negative [facility] SARS-COV-2 PERFORMING LAB [facility] Specimen Other Narrative Performed At Negative results do not preclude SARS-CoV-2 [facility] infection and should not be used as [...] the Act. Fact Sheet for Healthcare Providers: https://www.[employer]/Documents/Xpert%20Xpre ss%20SARS%20CoV-2/Fact%20Sheets/302-8192%20SAR S-COV-2%20HEALTHCARE%20PROVIDERS%20FACT%20SHEE T.pdf Fact Sheet for Healthcare Patients: https://www.[employer]/Documents/Xpert%20Xpre ss%20SARS%20CoV-2/Fact%20Sheets/302-6259%20SAR S-COV-2%20PATIENT%20FACT%20SHEET.pdf Performing Laboratory: [facility] [address] [place] [address]. [place] [address] Performing Organization Address City/State/Zipcode Phone Number [address] [address] CENTER EKG-SCANNED (01/20/2020 1:53 PM [...] included. WBC 5.6 3.5 - 10.5 K/L [facility] RBC 2.50 (L) 4.63 - 6.08 M/L [facility] Hemoglobin 7.4 (L) 13.7 - 17.5 GM/DL [facility] Hematocrit 23.1 (L) 40.1 - 51.0 % [facility] MCV 92.4 (H) 79.0 - 92.2 fL [facility] MCH 29.6 25.7 - 32.2 pg [facility] MCHC 32.0 (L) 32.3 - 36.5 GM/DL [facility] RDW 16.9 (H) 11.6 - 14.4 % [facility] Platelets 156 150 - 450 K/CU MM [facility] MPV 11.9 9.4 - 12.4 fL [facility] nRBC 0 0 - 0 /100 WBC [facility] % Neutros 73 % [facility] % Lymphs 13 % [facility] % Monos 9 % [facility] % Eos 2 % [facility] % Baso 0 % [facility] # Neutros 4.11 1.78 - 5.38 K/L [facility] # Lymphs 0.74 (L) 1.32 - 3.57 K/L [facility] # Monos 0.53 0.30 - 0.82 K/L [facility] # Eos 0.12 0.04 - 0.54 K/L [facility] # Baso 0.02 0.01 - 0.08 K/L [facility] Immature Granulocytes-Relative 2 (H) 0 - 1 % C [facility] Specimen Blood Performing Organization Address City/State/Zipcode Phone Number [facility] [address] [place] [address] CENTER Prothrombin time/INR (01/19/2020 3:55 AM CDT)Only the most recent of3 results within the time period is included. Protime 15.3 (H) 11.9 - 14.2 seconds [facility] INR 1.2 <=5.9 [facility] Specimen Blood Narrative Performed At Effective 12/31/2018: PT Reference Range [facility] Change New: 11.9-14.2Previous: 11.7-14.7 RECOMMENDED COUMADIN/WARFARIN INR THERAPY RANGES STANDARD DOSE: 2.0-3.0Includes: PROPHYLAXIS for venous thrombosis, systemic embolization; TREATMENT for venous thrombosis and/or pulmonary embolus. HIGH RISK: Target INR is 2.5-3.5 for patients wiht mechanical heart valves. Performing Organization Address City/[facility]/Zipcode Phone Number [facility] [address] [place] [phone] CENTER Magnesium (01/19/2020 3:55 AM CDT)Only the most recent of3 resultswithin the time period is included. Magnesium 2.2 1.6 - 2.6 mg/dL [facility] Specimen Blood Narrative Performed At [facility] Instructor ID - AYAZ Horne [facility] Performing Organization Address [facility] [[email or web address] Phone Number [address] [phone] CENTER Basic Metabolic Panel (01/19/2020 3:55 AM CDT)Only the most recent of3 results within the time period is included. Sodium 135 (L) 136 - 145 meq/L [facility] Potassium 3.5 3.5 - 5.1 meq/L [facility] Chloride 104 98 - 107 meq/L [facility] CO2 24 22 - 29 meq/L [facility] BUN 20 7 - 21 mg/dL [facility] Creatinine 0.78 0.57 - 1.25 mg/dL [facility] Glucose 99 70 - 105 mg/dL [facility] Calcium 7.7 (L) 8.4 - 10.2 mg/dL [facility] EGFR 118Comment: ESTIMATED GFR IS mL/min/1.73 sq m [facility] NOT ACCURATE CREATININE [facility] CLEARANCE IN PREDICTING GLOMERULAR FILTRATION RATE. ESTIMATED GFR IS NOT APPLICABLE FOR DIALYSIS PATIENTS. Specimen Blood Narrative Performed At [facility] Instructor ID - AYAZ Horne [facility] Performing Organization Address City/[facility] [[email or web address] Phone Number [facility] [address], [place] [phone] CENTER Prepare Leuko-Red RBC (01/18/2020 11:54 PM CDT) CROSSMATCH COMPATIBLE SAFETRACE TX Unit ABO B Pos SAFETRACE TX UNIT NUMBER [id number] SAFETRACE TX Status TX_TIMEINCHART SAFETRACE TX Blood Bank Product RED BLOOD CELLS SAFETRACE TX PRODUCT CODE [id number] SAFETRACE TX CROSSMATCH COMPATIBLE SAFETRACE TX Unit ABO B Pos SAFETRACE TX UNIT NUMBER [id number] SAFETRACE TX Status TX_TIMEINCHART SAFETRACE TX Blood Bank Product RED BLOOD CELLS SAFETRACE TX PRODUCT CODE [id number] SAFETRACE TX CROSSMATCH COMPATIBLE SAFETRACE TX Unit ABO B Pos SAFETRACE TX UNIT NUMBER [id number] SAFETRACE TX Status TX_TIMEINCHART SAFETRACE TX Blood Bank Product RED BLOOD CELLS SAFETRACE TX PRODUCT CODE [id number] SAFETRACE [place] Specimen Other Performing Organization Address [facility] Phone Number SAFETRACE [place] Venous doppler arm, right (01/18/2020 4:00 PM CDT) Ejection Fraction [facility] Specimen Impressions Performed At Right Impression [facility] 1. There is [...] Upper Extremities Veins [facility] Demographics Patient NameFrancie CUEVAS of Study 01/18/2020 74 Visit [id number] Male of 1945 Referring Thao Hung Room Number [id number] Physician [employer] Architect BEBA Mantilla Physician Procedure Type of Study: [...] of Study 01/18/2020 Age 74 Visit Number [id number] Gen varsha Male Accession Number [id number] Geoffrey e of 1945 Referring Thaoebony hung Number 1023 Physician [employer] Architect Wyatt Gonzalez Int erpretin Meenakshi Hill, BALBIRS [...] are measured in cm Performing Organization Address City/State/[facility] [[email or web address] Phone Number [facility]ART[facility] REPORT OF PROCEDURE - ENDOSCOPY URL (01/17/2020 5:18 PM CDT) Narrative Performed At This result has an attachment that is no t available. Tissue Exam (01/17/2020 5:03 PM CDT) Case Report Surgical Pathology Report Case: [id number] [facility] Authorizing Provider:David Ozuna, Collected: 01/17/2020 05:[address] [facility] Ordering Location: [address] Received:01/18/2020 09:09 AM Service Pathologist: Wayne Mcadams MD Specimen:Biopsy, Gas tric, Random gastric bx ADDENDUM Immunostain for helicobacter [facility] [employer] [facility] performed on block A1 is [facility] POSITIVE. 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 [facility] NEGATIVE FOR INTESTINAL METAPLASIA, DYSPLASIA, O R INVASIVE CARCINOMA. WARTHIN STARRY STAIN FOR HELICOBACTER IS NEGATIV E. IMMUNOSTAIN FOR HELICOBACTER IS PENDING, ADDENDU M REPORT TO FOLLOW. Signing Pathologist Direct Phone Line: CPT Code(s) 92598, 31694, 67734 [facility] Flat.to [facility] ER CLINICAL HISTORY GI BLEED [facility] Scatter Lab [facility] ER SPECIMEN SOURCE Gastric biopsy [facility] DES[facility] Received in formalin labeled with the patient's name, accession number and "gastric biopsy" are 3 fam-pink tissue fragments measuring up to 0.3 cm in greatest dimension which are filtered and submitted in toto in A1. [facility] Augustin (ASCP)cm MICROSCOPIC DESCRIPTION PERFORMED. [facility] SPECIAL STUDIES The interpretation of this c ase included the use of immunohistochemistry or special stains. [facility] BLOCK A1- GRISEL PEREA, HELICOBACTER IMMUNOSTA IN. [facility] Control Slides Examined: In -house known positive controls were evaluated along with the test tissue. These control slides run alongside of the patients sample show appropriate staining. Internal posit vivien and negative controls when available are [employer] Immunohistochemistry technic al testing was performed at [facility], Pathology Laboratory where it was developed and its performance characteristics were determined. It has not be en cleared or approved by [facility] U.S. Food and Drug Administration. The FDA has determined that such clearance or approval is not necessary. The test is used for clinical purposes. It should not be regarde d as investigational or for research. This laboratory is certified under the Clinical Laboratory Improvement Amendments of 1988 (CLIA-88) as qualified to perform high complexity clinical laboratory testing. Gross assessment was [facility] performed at [place], Department of [facility] Pathology, [address] [place] [phone], Technical component was [facility] performed at [place], Department of [facility] Pathology, [address] [place] [address], Professional component [facility] was performed at [place], Department of [facility] Pathology, [address] [place] [phone], Specimen Tissue Performing Organization Address City/State/Zipcode Phone Number [address] [address] [place] [employer] Leuko-Red RBC (01/17/2020 8:35 AM CDT)Only the most recent of4 resultswithin the time period is included.Hemoglobin and hematocrit (01/17/2020 5:38 AM CDT)Only the most recent of2 resultswithin the time period is included. Hemoglobin 6.2 (L) 13.7 - 17.5 GM/DL [facility] Hematocrit 19.3 (L) 40.1 - 51.0 % [facility] Specimen Blood Narrative Performed At [facility] Instructor ID - [id number] [facility] Performing Organization Address City/[facility]/Zipcode Phone Number [facility] [address] [place] [address] CENTER ABORH, manual (01/17/2020 1:27 AM CDT) ABO Grouping B [facility] Rh Factor POS [facility] Specimen Blood Performing Organization Address City/[facility]/Zipcode Phone Number [facility] [address] [place] [address] Vitamin B12 and Folate (01/17/2020 1:26 AM CDT) Vitamin B12 >2000 (H) 213 - 816 pg/mL [facility] Folate 14.20 >=7.00 ng/mL [facility] Specimen Blood Narrative Performed At [facility] Instructor ID - PIAYA L [facility] Performing Organization Address City/[facility]/Zipcode Phone Number [facility] [address] [place] [address] [place] Iron, TIBC, % sat. (without ferritin) (01/17/2020 1:26 AM CDT) Iron 38.0 (L) 40.0 - 160.0 ug/dL [facility] TIBC 151 (L) 250 - 450 ug/dL [facility] Iron % Saturation 25 20 - 55 % [facility] Specimen Blood Narrative Performed At [facility] Instructor ID - MARVA Aguila [facility] Performing Organization Address City/[facility] [[email or web address] Phone Number [address] [address] CENTER Haptoglobin (01/17/2020 1:26 AM CDT) Haptoglobin 277 (H) 14 - 258 mg/dL [facility] Specimen Blood Narrative Performed At [facility] Instructor ID - MARVA Aguila [facility] Performing Organization Address [facility] [[email or web address] Phone Number [address] [address] CENTER Ferritin (01/17/2020 1:26 AM CDT) Ferritin 947.60 (H) 5.00 - 275.00 ng/mL [facility] Specimen Blood Narrative Performed At [facility] Instructor ID - MARVA Aguila [facility] Performing Organization Address [facility] [[email or web address] Phone Number [address] [address] CENTER Type and screen, automated (01/17/2020 12:57 AM CDT) ABO/RH AUTOMATED (LONNIE) B POSITIVE [facility] Ab Scrn NEGATIVE [facility] Specimen Blood Performing Organization Address City/[facility] [[email or web address] Phone Number [address] [address] PT/aPTT (01/17/2020 12:57 AM CDT) Protime 16.5 (H) 11.9 - 14.2 seconds [facility] INR 1.4 <=5.9 [facility] PTT 31.0 22.5 - 36.0 seconds [facility] Specimen Blood Narrative Performed At Effective 12/31/2018: PT Reference Range [facility] Change New: 11.9-14.2Previous: 11.7-14.7 RECOMMENDED COUMADIN/WARFARIN INR THERAPY RANGES STANDARD DOSE: 2.0-3.0Includes: PROPHYLAXIS for venous thrombosis, systemic embolization; TREATMENT for venous thrombosis and/or pulmonary embolus. HIGH RISK: Target INR is 2.5-3.5 for patients wiht mechanical heart valves. Performing Organization Address City/[facility] [[email or web address] Phone Number [address] [phone] [place] Reticulocyte count (01/17/2020 12:57 AM CDT) % Retic 4.9 (H) 0.5 - 1.8 % [facility] Specimen Blood Narrative Performed At [facility] Instructor ID - [id number] [facility] Performing Organization Address [facility] [[email or web address] Phone Number [address] [address] CENTER Lactate dehydrogenase (LDH) (01/17/2020 12:57 AM CDT) LDH 484 (H) 125 - 220 U/L [facility] Specimen Blood Narrative Performed At [facility] Instructor ID - PIAYA L [facility] Performing Organization Address [facility] Phone Number [address] [address] [place] Hepatic function panel (01/17/2020 12:57 AM CDT) Protein, Total 5.8 (L) 6.0 - 8.3 gm/dL [facility] Albumin 2.7 (L) 3.5 - 5.0 g/dL [facility] Total Bilirubin 0.6 0.2 - 1.2 mg/dL [facility] Bilirubin, Direct 0.4 0.1 - 0.5 mg/dL [facility] Alkaline Phosphatase 71 40 - 150 U/L [facility] AST 40 (H) 5 - 34 U/L [facility] ALT 26 6 - 55 U/L [facility] Specimen Blood Narrative Performed At Allied Health Instructor ID - PIAYA L [facility] Performing Organization Address City/State/Zipcode Phone Number [facility] [address] [place] [address] CENTER ECG 12 lead (01/17/2020 12:08 AM CDT) Specimen Narrative Performed At Ventricular Rate 84 BPM GE MUSE Atrial Rate 84 BPM P-R Interval 228 ms QRS Duration 86 ms Q-T Interval 414 ms QTC Calculation(Bazett) 489 ms P [place] 89 degrees R [place] 40 degrees T [place] 35 degrees Sinus rhythm with 1st degree [...] 414 ms QTC Calculation(Bazett) 489 ms P [place] 89 degrees R [place] 40 degrees T [place] 35 degrees Sinus rhythm with 1st degree A-V block Nonspecific ST abnormality Prolonged QT Abnormal ECG No previous ECGs available Confirmed by MD LORENZANA YOCHAI ([id number]) on 01/18/2020 10:52:55 AM Performing Organization Address City/State/Zipcode Phone Number GE MUSE after 03/01/2019 Insurance Payer Benefit Plan / Group Subscriber ID Type Phone A ddress [employer] HMO xxxxxxxxx MEDICARE MGD CARE CDC REVIEW CDC REVIEW xxxxx[place] [address] [place] [address] Advance Directives For more information, please contact:[facility] [place], [place] [phone] Code Status Date Activated Date Inactivated Comments Full Code 01/16/2020 11:57 PM 01/19/2020 11:53 AM This code status was determined by: Patient
--- OUTSIDE RECORDS SUMMARY | 2020-03-01 07:51 | XMS REPORT | Continuity of Care Document ---
:1945 Author Organization [facility] Care Team Providers Name Role Phone [facility] Unavailable Un available Problems Problem Status Onset [...] Q12H, # 180 tab, 3 Refill(s), Pharmacy: [facility]08 amLODIPine 5 5 mg = 1 Active 03/05/20 Medica l mg oral tab, PO, 19 Group tablet BID, # 60 tab, 11 Refill(s), Pharmacy: [facility] 808 amLODIPine 5 5 mg = 1 No Longer 08/25/19 Medi crow mg oral tab, PO, Active 19 Group tablet BID, # 60 tab, 11 Refill(s), Pharmacy: [facility] 808 flecainide 100 mg = 1 Active 06/05/20 Medica l 100 mg oral tab, PO, 18 Group tablet Q12H, # 180 tab, 3 Refill(s), Pharmacy: [facility] 808 amLODIPine 5 5 mg = 1 Active 02/14/20 Medica l mg oral tab, PO, 18 Group tablet BID, # 30 tab, 11 Refill(s), Pharmacy: [facility] 808 flecainide 50 50 mg = 1 Active 02/14/20 Medi crow mg oral tab, PO, 18 Group tablet Q12H, # 60 tab, 5 Refill(s), Pharmacy: [facility]08 Allergies, Adverse Reactions, Alerts [...] Number For Provider Date Date Visit Outpatient [id number] RANDEE 04/19 [facility] Outpatient [id number] ECHO VISIT 05/09 Act [facility] [place] Outpatient [id number] [facility]ANDEE 09[facility]13 [facility] [id number] [facility] [place] [facility] [id number] RANDEE 06/13 [facility] [id number] RANDEE 07/03 [facility] [id number] OTHER 07/03 Active [facility] VISIT Sant[facility] Outpatient [id number] Wesley 07/03 07/04 Cardiology [place] /2016 [facility] Outpatient [id number] Wesley 07/03 07/04 [facility] [place] [facility] [id number] 08/16 08/18 Cardiology Medical /2017 [facility] Outpatient [id number] RANDEE 12/25 [facility]WOT Santino [facility] Outpatient [id number] Randee 12/25 12/26 [facility]iology [place] /2017 [facility] Outpatient [id number] ECHO VISIT 02/13 [facility] [place] [facility] [id number] RANDEE 02/13 [facility] [place] [facility] Outpatient [id number] Wesley 02/13 02/14 [facility] [place] [facility] [id number] Wesley 02/13 02/14 Cardiology [place] /2017 [facility] Outpatient [id number] RANDEE 06/05 [facility] Outpatient [id number] Randee 06/05 06/06 [facility] [place] /2017 [facility] Outpatient [id number] ECHO VISIT 09/05 Act [facility] [id number] RANDEE 09/05 [facility]2019 [facility] Outpatient [id number] Wesley 09/05 09/06 [facility] Cardiology [place] /2018 [facility] Outpatient [id number] Randee 09/05 09/06 [facility] [place] /2018 [facility] Outpatient [id number] Randee 03/05 Active [facility]2019 [place] [facility] Outpatient [id number] Randee 03/05 03/06 Cardiology [place] /2018 [facility] Outpatient [id number] Randee 09/03 [facility]2020 [place] [facility] Outpatient [id number] Randee 09/03 09/04 Cardiology [facility] /2019 /2019 [facility] Outpatient [id number] Randee 03/03 Active [facility] /2020 [facility] [...]
--- OUTSIDE RECORDS SUMMARY | 2020-03-01 07:53 | XMS REPORT | Continuity of Care Document ---
:1945 Author Organization [facility] t Address [address] [place] [address] Care Team Providers Name Role Phone JACQUIE Attending Clinician Unavailable Jacquie GAMBLE Attending Clinician Enrique Avila MD Attending Clinician Zuri GAMBLE, Wong Attending Clinician [phone] Chana GAMBLE, Vivian Attending Clinician Tima GAMBLE, Raymond Attending Clinician Bib Mi Attending Clinician VISIT, INFECTION PREVENTION COORDINATOR ECHO Attending Clinician Unavailable JACQUIE Admitting Clinician Unavailable Payers Payer Name Policy Type Policy Number Effective Date Expiration Source Date [facility] - xxxxxxxxx [facility]IC[facility] - CAREUNITED MEDICARE Medic al HMOxxxxxxxxx [facility] REVIEW[facility] x[facility] REVIEW[facility] Medical [id number] Center Problems Condition Condition Condition Status Onset [...] kes - on on 00:00: Medical 00 [facility] 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 M emoria a 00:26:45 l (disorder) Shaun n Bradycardi a (disorder) Active Problem 09/06/2019 [facility] Group Hypertensi Problem Active 2019-09-06 M emoria ve 00:26:45 l disorder, Santino systemic Hypertensi arterial ve (disorder) disorder, systemic arterial (disorder) Active Problem 09/06/2019 Medical Group Obesity Problem Active 2019-09-06 León tj (disorder) 00:26:45 l Obesity [place] (disorder) Active Problem 09/06/2019 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 Social History Social Habit Start Date Stop Date Quantity Comments Source History [facility] Alcohol [facility] Std Drinks [facility] History [facility] Alcohol [facility] Binge [facility] Sex Assigned At [facility] History [facility] Alcohol 2020-01-17 2020-01-17 1 [facility] - Frequency 00:00:00 00:00:00 [facility] Smoking Status Start Date Stop Date Source Never smoker [facility] edical [facility] Medications Ordered Filled Start Stop Current Ordering Indication Dosage Frequency Signature Comments Components Source Medication Medication Date Date Medication? Clinician (SIG) Name Name pantoprazol 2019- Yes 40mg Q.5D Take 1 [facility] 01-18 tablet (40 [facility] - (PROTONIX) 00:00: 23:59 mg total) edical 40 MG 00 :00 by mouth 2 Center tablet (two) times daily for 90 days. pantoprazol 2019- No 40mg Q.5D Take 1 [facility] 6-15 06-16 tablet (40 [facility] - (PROTONIX) [...] Santino 09 180 tab, 3 Refill(s), Pharmacy: [facility] amLODIPine 2018-0 Yes 5 mg = 1 Mem oria 5 mg oral 8-01 tab, PO, l tablet 15:37: BID, # 60 Shaun n 07 tab, 11 Refill(s), Pharmacy: [facility] amLODIPine 2018-0 No 5 mg = 1 Mem oria 5 mg oral 1-21 tab, PO, l tablet 22:16: BID, # 60 Shaun n 21 tab, 11 Refill(s), Pharmacy: [facility] flecainide 2017-08 Yes 100 mg = 1 M emoria 100 mg oral 1-01 tab, PO, l tablet 16:47: Q12H, # Santino 00 180 tab, 3 Refill(s), Pharmacy: [facility] amLODIPine 2017-0 Yes 5 mg = 1 Mem oria 5 mg oral 7-12 tab, PO, l tablet 15:46: BID, # 30 Shaun n 41 tab, 11 Refill(s), Pharmacy: [facility] flecainide 2017-0 Yes 50 mg = 1 Me moria 50 mg oral 7-12 tab, PO, l tablet 15:46: Q12H, # 60 Celina nn 00 tab, 5 Refill(s), Pharmacy: [facility] Vital Signs Vital Name Observation Time Observation Value Comments Source Systolic blood 2020-01-19 07:00:00 122 mm[Hg] [facility] Diastolic blood 2020-01-19 07:00:00 64 mm[Hg] [facility] Heart rate 2020-01-19 07:00:00 74 /min [facility] Body temperature 2020-01-19 07:00:00 36.28 Stacey [facility] Respiratory rate 2020-01-19 07:00:00 18 /min [facility] Body weight Measured 2020-01-19 07:00:00 95.7 kg [facility] BMI 2020-01-19 07:00:00 28.61 kg/m2 [facility] Oxygen saturation in 2020-01-19 07:00:00 99 /min [facility] Arterial blood by Medical Ce nter Pulse oximetry Body height 2020-01-17 00:00:00 182.9 cm [facility] Systolic (mm Hg) 2019-09-03 16:13:00 León rial Santino Diastolic (mm Hg) 2019-09-03 16:13:00 Mem orial [place] Heart Rate 2019-09-03 16:13:00 [facility] [place] Height 2019-09-03 16:13:00 187.96 cm [facility] [place] Weight 2019-09-03 16:13:00 [facility] [place] BMI Calculated 2019-09-03 16:13:00 Memori al [place] Weight 2019-03-05 14:43:00 [facility] [place] Height 2019-03-05 14:43:00 187.96 cm [facility] [place] BMI Calculated 2019-03-05 14:43:00 Memori al [place] Heart Rate 2019-03-05 14:43:00 [facility] [place] Systolic (mm Hg) 2019-03-05 14:43:00 León rial [place] Diastolic (mm Hg) 2019-03-05 14:43:00 Mem orial [place] Systolic (mm Hg) 2018-09-05 17:41:00 León rial [place] Diastolic (mm Hg) 2018-09-05 17:41:00 Mem orial [place] Heart Rate 2018-09-05 17:41:00 [facility] [place] Height 2018-09-05 17:41:00 187.96 cm [facility] [place] Weight 2018-09-05 17:41:00 [facility] [place] BMI Calculated 2018-09-05 17:41:00 Memori al [place] BMI Calculated 2018-06-05 16:04:00 Memori al [place] Height 2018-06-05 16:04:00 185.42 cm [facility] [place] Weight 2018-06-05 16:04:00 [facility] [place] Systolic (mm Hg) 2018-06-05 16:04:00 León rial [place] Diastolic (mm Hg) 2018-06-05 16:04:00 Mem orial [place] Heart Rate 2018-06-05 16:04:00 [facility] [place] BMI Calculated 2018-02-13 15:20:00 Memori al [place] Weight 2018-02-13 15:20:00 [facility] [place] Systolic (mm Hg) 2018-02-13 15:20:00 León rial [place] Diastolic (mm Hg) 2018-02-13 15:20:00 Mem orial [place] Heart Rate 2018-02-13 15:20:00 [facility] [place] Height 2018-02-13 15:20:00 185.42 cm [facility] [place] Height 2017-12-25 15:51:00 185.42 cm [facility] [place] BMI Calculated 2017-12-25 15:51:00 Memori al [place] Weight 2017-12-25 15:51:00 [facility] [place] Systolic (mm Hg) 2017-12-25 15:51:00 León rial [place] Diastolic (mm Hg) 2017-12-25 15:51:00 Mem orial [place] Heart Rate 2017-12-25 15:51:00 [facility] [place] Height 2017-07-03 17:24:00 185.42 cm [facility] [place] Weight 2017-07-03 17:24:00 [facility] [place] Systolic (mm Hg) 2017-07-03 17:24:00 León rial [place] Diastolic (mm Hg) 2017-07-03 17:24:00 Mem orial [place] BMI Calculated 2017-07-03 17:24:00 Memori al [place] Heart Rate 2017-07-03 17:24:00 [facility] [place] Procedures Procedure Date / Time Performed Performing Clinician Sour e SARS-COV2/RT-PCR ([facility] & 2020-02-12 11:50:00 [facility] REF LABS) [facility] REPORT OF PROCEDURE - 2020-01-20 13:53:10 Provider, Default [facility] - ENDOSCOPY SCAN [facility] RHYTHM STRIP - SCAN 2020-01-20 13:53:05 Provider, Default [facility] TRANSFUSION SERVICE 2020-01-19 18:10:35 Provider, Default [facility] REPORT - SCAN [facility] BASIC METABOLIC PANEL (7) 2020-01-19 03:55:00 MELISSA Dhillon I [facility] MAGNESIUM 2020-01-19 03:55:00 MartJakob PROTHROMBIN TIME/INR 2020-01-19 03:55:00 [facility] W/PLT COUNT & AUTO 2020-01-19 03:55:00 Jacquie [facility] DIFFERENTIAL [facility] PREPARE LEUKO-REDUCED RBC 2020-01-18 23:54:00 MartMELISSA Saxena I [facility] TRANSFUSION SERVICE 2020-01-18 18:00:14 Provider, Default [facility] VENOUS DOPPLER ARM, RIGHT 2020-01-18 16:00:00 Thao Keating [facility] BASIC METABOLIC PANEL (7) 2020-01-18 04:48:00 MELISSA Dhillon I [facility] MAGNESIUM 2020-01-18 04:48:00 [facility] PROTHROMBIN TIME/INR 2020-01-18 04:48:00 [facility] CBC W/PLT COUNT & AUTO 2020-01-18 04:48:00 ARVIN [facility] DIFFERENTIAL [facility] REPORT OF PROCEDURE - 2020-01-17 17:18:56 David Alfred [facility] ENDOSCOPY [facility] TISSUE EXAM 2020-01-17 17:03:00 David Alfred [facility] UPPER 2020-01-17 13:03:00 David Alfred [facility] ENDOSCOPY,SCLEROTHERAPY [facility] UPPER ENDOSCOPY,BIOPSY 2020-01-17 13:03:[address] [facility] CBC W/PLT COUNT & AUTO 2020-01-17 12:11:00 [facility] TRANSFUSE LEUKO-REDUCED 2020-01-17 08:35:[facility]OD [facility]LL[facility] TRANSFUSE LEUKO-REDUCED 2020-01-17 06:06:[address] [facility] RED BLOOD CELLS [facility] HEMOGLOBIN AND HEMATOCRIT 2020-01-17 05:38:00 Jacquie [facility] PROTHROMBIN TIME/INR 2020-01-17 03:16:00 [facility] HEMOGLOBIN AND HEMATOCRIT 2020-01-17 03:16:00 Jacquie [facility] TRANSFUSE LEUKO-REDUCED 2020-01-17 02:57:49 [facility] ABORH, MANUAL 2020-01-17 01:27:00 Marla Berger [facility] VITAMIN B12 AND FOLATE 2020-01-17 01:26:00 [facility] IRON, TIBC, % SAT. 2020-01-17 01:26:00 [facility] 2020-01-17 01:26:00 [facility] HAPTOGLOBIN 2020-01-17 01:26:00 [facility] BASIC METABOLIC PANEL (7) 2020-01-17 00:57:00 Jacquie I [facility] MAGNESIUM 2020-01-17 00:57[facility] 2020-01-17 00:57:00 Jacquie [facility] S [facility] PT/APTT 2020-01-17 00:57:00 Jacquie [facility] RETICULOCYTE COUNT 2020-01-17 00:57:00 [facility] LACTATE DEHYDROGENASE 2020-01-17 00:57:00 Jacquie [facility] (LDH) [facility] TYPE AND SCREEN, 2020-01-17 00:57:00 Jacquie [facility] s - AUTOMATED [facility] CBC W/PLT COUNT & AUTO 2020-01-17 00:57:00 Jacquie [facility] S t [facility] DIFFERENTIAL [facility] SARS-COV2/RT-PCR ([facility] & 2020-01-17 00:37:00 Jacquie [facility] - REF LABS) [facility] ECG 12-LEAD 2020-01-17 00:08:25 [facility] Encounters Start End Encounter Admission Attending Care Care Encounter Source Date/Time Date/Time Type Type Clinicians Facility Department ID 2019-09-03 2019-09-03 [place] [id number] 10:00:00 23:59:59 Abraham Mccartney 16 2019-03-05 2019-03-05 [place] [id number] 10:00:00 23:59:59 Abraham Mccartney 15 2018-09-05 2018-09-05 [place] [id number] 11:15:00 23:59:59 Abraham Mccartney 14 2018-09-05 2018-09-05 Outpatient Hiwot, [facility] [id number] 11:15:00 23:59:59 Abraham Mccartney 14 2018-09-05 2018-09-05 Outpatient VISIT, MG MG [id number] 10:45:00 23:59:59 NURSE INFECTION PREVENTION COORDINATOR 13 ECHO 2018-09-05 2018-09-05 Outpatient VISIT, [facility] [id number] 10:45:00 23:59:59 NURSE INFECTION PREVENTION COORDINATOR 13 ECHO 2018-06-05 2018-06-05 Outpatient Hiwot, [facility] [id number] 11:00:00 23:59:59 Abraham Bib 12 2018-02-13 2018-02-13 Outpatient Hiwot, [facility] [id number] 10:45:00 23:59:59 Abraham Bib 11 2018-02-13 2018-02-13 Outpatient VISIT, [facility] [id number] 10:00:00 23:59:59 NURSE INFECTION PREVENTION COORDINATOR 10 SENTHIL 2017-12-25 2017-12-25 Outpatient Hiwot, [facility] [id number] 11:00:00 23:59:59 Abraham Bib 09 2017-08-16 2017-08-17 Outpatient [facility] [id number] 15:30:00 23:59:59 00 2017-08-16 2017-08-17 Outpatient [facility] [id number] 15:30:00 23:59:59 00 2017-07-03 2017-07-03 Outpatient Hiwot, [facility] [id number] 12:00:00 23:59:59 Abraham Bib 08 2017-07-03 2017-07-03 Outpatient Hiwot, [facility] [id number] 11:30:00 23:59:59 Abraham Bib 07 Results Test Description Test Time Test Comments Results Result Comments Source SARS-CoV2/RT-PCR ([facility] & Ref Labs) 2020-02-13 11:36:00 Test Item Value Reference Range Interpretation Comme nts SARS-COV2/RT-PCR (test code = Not Detected Not Detected, Negative 23085-2) SARS-COV-[address] [facility] (test code = 21162-9) BEAR (test code = BEAR) Negative results [...] of the Act. Fact Sheet for Healthcare Providers:https://www.[employer]/Documents/Xpert%20Xpress %20SARS%20CoV-2/Fact%20Sheets /3023802%44WKJQ-LLQ-0%20HEAL THCARE%20PROVIDERS%20FACT%20S HEET.pdf Fact Sheet for Healthcare Patients:https://www.Plango/Documents/Xpert%20Xpress% 20SARS%20CoV-2/Fact%20Sheets/ 3023801%21NGLX-IBA-5%20PATIE NT%20FACT%20SHEET.pdf Performing Laboratory:[place] [address] [address] [place], [place] [address] [place], [place] [address]ARS-COV2/RT-PCR ([facility] REF LABS)2020-02-13 11:36:00 Test Item Value Reference Range Interpretation Comments SARS-COV2/RT-PCR (test Not Detected Not Detected, Negative code = 5888223) SARS-COV-[address] [facility] (test code = 3914723) Negative results do not preclude SARS-CoV-2 infection [...] of the Act.Fact Sheet for Healthcare Pro viders:https://www.Arlettie/Documents/Xpert%20Xpress%20SARS%20CoV-2/Fact%20Sh eets/302-3802%85DKXY-CAG-2%20HEALTHCARE%20PROVIDERS%20FACT%20SHEET.pdfFact Sheet for Healthcare Patients:https://www.[employer]/Documents/Xpert%20Xpress%20SARS%20CoV-2/Fact%20Sheets/302-3801%20SARS-COV -2%20PATIENT%20FACT%20SHEET.pdfPerforming Laboratory:[facility] [place] [address]380Tjnhwc [id number] 10:48:00 Test Item Value Reference Range Interpretation Comments Case Report (test code Surgical Pathology = 104) Report Case: [id number] Authorizing Provider: David Alfred, Collected: 01/17/2020 05:03 PM Ordering Location: [address] Received: 01/18/2020 09:09 AM Service Pathologist: Wanye Mcadams MD Specimen: Biopsy, Gastric, Random gastric bx ADDENDUM (test code = k5hrpRPqLESboDVjClTzDN 3381) NeHURuv1umDZKpcILtFwLq MzNcZnRuYmpcdWMxXGRlZm Rti9bjj115qPFte6loAQSi SeP0mUWyWEThqZRgT822v5 def1njqmZwbMQ8CTRvRXV2 YAmubwRnleA5VIowuRDlFs D3DRnngdSeKGxvqaTjuqNw Itx9EBRlE405MZA0nOxje0 myQRD9FUSwQBWaSjUmHj1i lRKiN427NLPdLGRNONCkxC b0DGFcdyTsqfWpwXBYx749 E779l7vjPRRbnjNgvFuSdd nqb8asR417TPZbdUUvuuDs KaMiLHFekSCndLJ2PTDyLU 3ljpgcGOiwSRqfABXiscR4 FPBsgWFsX6SzTKSoYP4iyw cqBKD8QYuzGKXgHAN8PiKw TJDgi8Tmtrf1AjLqpi6tnm 50VBP4s5TnbWvfOPK2XHJ1 LmJhPy1xmRTkARBxRY4zQf PokXBhRULurf05kPdjZZnh duKpdC5aJqLeMRNcrKVqYK KdMM6flSIhKKHjkI2jlall XHBnYnJkcmhlYWRccGdicm ZcQx9voRnvVTA9KTdlB6jl wO3sJeF1AItiS8kbjG1vED i5OGmmaOY1MSXyeF3gJV5v ostzt3eeLZmbZAusSAMosw N1odR3EGXskCShB1YnjS2m ZGRoBS1wtjtzg6btPDH8IZ rbXUIvCWU0ZaVnVQJth5Hq otd6WlJkp9TnzJEmRZwgK1 9wh619JAQjkmObK9lpnPGq nvvutKCdcqazMNfvwcI4DP FsXHBsYWluXGYwXGZzMjBc bGFuZzEwMzNcaGljaFxmMF itMpZaZNMbMRfgR8btGtQn SbQiIWDZdO48ib4ruJEemz Irc3KnqAVvrYTtIqNodWIq DFWmxeBtpj8rXHNwanLaiE 1chwOAGTOlbyJIA4MYLCeC YD6jtDRtzF== DIAGNOSIS (test code = j4kncZLmBIHmb1ciVFVxwC 3220) FuZzEwMzNcZnRuYmpcdWMx SCoshtYvEFwmk2IcC7KhZs AwMFxhbnNpXGRlZmxhbmcx TPRoJGA2erZgXHCfNXgkCF GcUNsuKk6ewXLitFhhPgFg WZXmf6ertiZXipnnqTq2o6 byFXVfVdZ6eYJvHBhpH6ht fdYnkOKgXVLfJIg5qA20LS AlsK1rhIDdGStiuiQqCgA3 IQjsNMAoVxA4EWWciZNhTZ ZoN3wtFLZsEChwEHEgQKpt lUBfGPZ7tJgkl3N2zRZyjU MdjPagSfJyUtEcIEIDu5Hb BEd9zCpqR9WpBQIhBoP4cE QgUGFyYWdyYXBoIEZvbnQ7 gY66CEhaniP3yHCop8Rkm7 6tg371eY6zlGOvSQM5NWVb IWMtpNMcQJQvHFS2YYCjuI BnT5a8IeTesWEeA3R2PgPr hUBmQ2L3TnUgkUKjB2N6St DbxLObFZHreTVlCd4ugNFx tTZeyq5ian67SXK0q2QagU puWIX8FHL8DhJzRq2pbITc SEDxVS5iYdJzsWEsGQNzct 52dRxfEFveseIhdP8pLqQf DVRaiNGqYXHhNH3edXFzNA ItlL1gsxiiRGKxXuDmwrbt OCZirZghxwHzSf1ugAiwME S4SCxlH3bpnT7aFvB0QEot R2eetR8aJDy6UTsahNI7MM NjrE4sIS3osvlsa1yfYyVn DE2nduxts8usHkGzUQ3aqd f9g6keMrTkFH3whhscv8la NzIwXGhlYWRlcnkwXGZvb3 SqpcqsKKUad1KxJ6SbrCto K65rrWzaY10lMFVchMxyjQ 3eqZkycH6xKlFfLzWdMIpm bFxwbGFpblxmMVxmczIwXG pldmwoBLWjRXnjS6tqMjZj YWKojTrfVNhdb1YyALZaNI ZzMjAgUEFSVCBBIFJBTkRP QDECCIOVTizGHOKXE3DLSM pccGFyIEFOVFJBTCBBTkQg C5rZGwWHAfVDXVBWC0JeZ0 rFCYCIU7NAAwEyD2eFW29Q QyBHQVNUUklUSVMuXHBhci AEDUdUZVySHMBDL0XqZV1P PYNGEC0IFEIIIBXWUHdGY9 mXVVISSGLOJFCEAUKfZD3Q IElOVkFTSVZFIENBUkNJTk 2NDZ2pfVIlMWySBxAEQQ9i H4TASuGXHGIDCHaUDVKSYq EEUStGR78EWDOCUWHqDGEf TkVHQVRJVkUuXHBhciBJTU 8MIj3BEYQJYxYRW1GkQZUD SUNPQkFDVEVSIElTIFBFTk RJTkcsIEFEREVORFVNIFJF XJ3UNYVQKaXHG6pCK2jvJJ Niuy58OGT5OaOng2I0VOP5 YXPgMILfg4prLZXezMLxKt EwMzNcZnRuYmpcdWMxXGRl KxZee2pwz185fCDah0exWZ OkQcX5hHNpFIYohOBxA648 FISzCSodn8jrn4LnQOQrmI Wfs3I1CHVVksromMd7tHje T81cv3E1YhfgD6puXMUhIT MqO6PlYW1vJPXqTug5HDG3 HJM7HTFyNMZhT3BfIE5jKS CueODmMAm8f6mrgGqiULMd FFN6i0ieCZkmpyNkXK9gln 8bqAh5g7fuzmNgWZAfXFFf vWBGVGJwJ0OsjOzbBt2uwU a6dHxoJrcfBBT2Yro7GH7h tw86ypu6sNcsKWLeioycOp J6NXiaPUOyvxwtSSy7DCbj HZAyrMT6AFUvvYEeM8RaYA ItBI0nblt8BHF8FLdiDSNp LiP2HIQhzQEzMNXxbXdvJS zek963KBB6VxNjEU0rE6So l8N2tJ5ajMIiABGntOXeIj JdOSXrvk9hgZPjIOivm2Zm QSO2czA9gRFdgGCyUSErRj V9UVfgTB3obo27SZFrNKL2 fb7pkGKsnDgsghFrbFWiZF kkF5ShALIuf808UDTpK7Wz DRCnk0O7ynFtHmXuIRNiaC D1qwE5EWBsYO4sgvncm6vt ITmuIMpiOSYvllN8twM4QD CgiHBiK9BwyI2zNYMmAF9c joofa1ewRUF4LFusMRSdEV N5PpGiZYNun9Qcwxb8NhKc v1QztUNdFPwcS99sv422TV RfhhLsY8mzaBWpzzhvoVHe ehpdCSkuilB2QGWoPBcyhs ieYCZeQAwkO3gbUfXdHWFg tQjlFRgwn5AdVFXcMWCaFr IftMEtARMnSyv1JZFmcTZf FVLwAqGeO2ofqnzmXhWLLU Twg0oaC4penSMXgUJuN4Fl UGhvbmUgTGluZTogODMyLT Y0IB65QEwsUCBbld28 CPT Code(s) (test code u1zsiHVvMYUpiWQfYxKxBN = 3357) FcFOZuj3zyWHTylJZqYuFa MzNcZnRuYmpcdWMxXGRlZm Kcy6cjm110iQDmp4faFFHw BfW0oKSxTHAxtCYwH145o9 wwc3latgExvXS4JFAzKXT4 YLinsdUmsiV2TNoruATkId I7FWarhwKhSOefskYnmiYp Kmv3SUKkG972NJI6mCtyy1 omLFU5RBGiFPQgMzUrAd0y aGGiI605TIBeSEJLYNNxgJ x1QFQricJgqpRchNTJc043 M804a9ijTVEfdjYpeOkYuh faa4zjA367WMSxtXOgamFn HfDdBGWsiHAvjGB5KSPaZI 9wjkfrVxGwCO7jatpbWgAp TC3wjoj9RjHaKS5hkejeQq OvLVlmARMbsytrVHCjg5Ch gzldRV0sH6Lpg4Z2vE6rnN BgOCPijMSeGuPqQHVwmy2i tJRcDHrda3BsPVI7pxX5wO JjrDGcQPOwUE39Xrzwp3Hd TlcxOLE1OUNwhjKsh4Efq1 uyVpTsngHnM3haB7KvBPKi ELMuDGWkSbRgrwBuy2Anp5 FhoMMswVa7t8btYTAjGBSi oBtjw1apJDR6EAEvN0F7bW Yvb6wzTIucOSIgdWR1rcmz CGbpODKjjvO3imkiAYywNQ MkqLI2noqxGPfnYMCsScY3 gkpsGRwcPHUvJLL6ZExck3 16HCS6TXuoOolyZSeaARJp bmNvbnRccGduZGVjXHBsYW luXHBsYWluXGYwXGZzMjRc jTldhSfcoH7bQkJdToDwFP yvJN3yAERvW4ilfVWlYRCd JQUkM0cfJqMarA3qzAniZM vlcdNhIQg8VkZ3NCZ9WSNa MiwgODgzNDJccGFyfQ== CLINICAL HISTORY (test m2cvkMMbJGIkdCDhDsPeGU code = 3356) IdJBZtk8fpKZSeePTtFbAb MzNcZnRuYmpcdWMxXGRlZm Zsl5yjh320wRXqx6ecJASb ToS8vRSbFHEjaHIdE253GO ZuCSgtd5emq7EpMFAedPPf h0Y7JMSYsjdgtFi4aLekJ4 6ki2P4GycaS7kvQFOuYEMr A8KmNP6eKHItUco8WZX4YP M1TABxVVMyM1AuHJ6sWMPx bIDwFXv8f7fplWlcSKBuEE B0q8alWOudfuRtIH2ybg4e dGj5j9ootgWwUEZkCJHjwD FJRVCdU0ZqiZrkSt2eoEj8 fQbxBvgiXCQ8Vyo5TY2dvx 03zqd2zNibKQYpwhohVzY3 SFerPHEwtxnuOAm5WOrpMP JnbDcyMFxtYXJncjcyMFxt YXJndDcyMFxtYXJnYjcyMF ujUWYvVVT6GXwdu313GFZ0 RPvho1lyw8rylFDeAbx7II WdApDsTbarEOcfk7Ukg1mm QFFkjs6eDYN1gEBzhXdrv9 N6gVMiYRJdnNKrkpDeLMLv GeL4QMzlRH3ozq11UUDaFS E6xq4fwPQddFfpinNmdWSy EJadQ9LjQYKbr294OVMmF8 TnESOvw0R6hnLyGeChRSDx pST6lmZ8GFWeYKh2iYMfyw D6qxCmuLQbW0kkfY27QfFh pMEgZ7ZnnC39AmDbgDXoB4 ZfeQ29ScBrnLZyA4WxlE89 JmIklMPhMRQmyYOvLh0umY ItoAUzu5BqtIIqAVrlC50x z747LJCcjtKwM5gltXSbrj abcFBkqjnzOWhllkO5NOf4 cnBhclxxbFxwbGFpblxmMV xmczIwXGxhbmcxMDMzXGhp Q8owOiQaMTJqxIkzYQlpm6 GcGVIbDHAlYwKaG4aeImmE RURccGFyfQ== SPECIMEN SOURCE (test c5xjiYEuYSSvqADrDgNfDN code = 3377) CkYMQay7tlJLVxvOUkItIl MzNcZnRuYmpcdWMxXGRlZm Lax4mhk385oDFpt1hwQYXx OrT0dQGcCWSwzYLdH979f0 dyl0mkelIxtTI6YBZbKIV6 ROtgcmQtjkO0QHrxeTKvRx R7KUuklwZoPPsghpArdcSs Zer1WHSoQ521XTE1nMooa6 gyROF3ZAPeGTYiQtCyTu2y dXVfA247IGSwZSZJYJUzbK l8LFOdryZmcmCphLUVv253 C298a3emCEUpdmUnaYbRys pex9lbF211DXAtyVHmbwAm VsJfNMWfcTAcmET8OQAiTG 6szlvqYjXnZL8louemVdKy KP3njqw3XnCdSS5udixbRc HgDGdyPPTiayuvXMUmh4It lsfyFX8uU5Kwj7Q4lT9iqF YcUOXcqPJsDsIhBKQsfb4l jQAtAMwoh3WqEOQ1qxY2uW GgiLBiJQHsAC75Cfbpr2Tq DjidWBH5NDYiunWpt7Tpf5 neUoEjbqRoN7xbO0WpMEFg ZZNhHHZoRrWohuNpe9Vzv0 PgoFKfxWq7w1krOSEuLZGr mLuew8sbLSR6EQCrH6J4wW Mjx6ykGPldULHdpVW2rndi XUkqXQIhsiA4wxscCZlwQT IgnOX7flirUIawAIGwUlM5 lgodLFlvMHZzUIZ2LHvbc3 78JNP6GBtgMmblEVqkRMXu bmNvbnRccGduZGVjXHBsYW luXHBsYWluXGYwXGZzMjRc jKivmYeaaF6yZnNqUyDmRJ aqNJ6xCHJjF7nqmTWnNMZh OIEcT2qxMcRlpN4scTtsIE jkejVwJOflf9YlpCKyTgut tPJ5HOPqkr4= GROSS DESCRIPTION (test x6ydgEUcKUPwtMXoHcFdXT code = 3366) WvABBax2kkZPUkxJQpTcGr MzNcZnRuYmpcdWMxXGRlZm Tcd7rhx143uZWfe2dgOSHl TqX7hABgCONmgPXaF779s3 jwa1soxeRrcXY6CQWwGSL8 HKmgtpMozdK1CZixtUDxXi U0FBbbebHbNSggdnYavrOl Hjq0UMRlG141TNT1bZvpx7 xvUBG9RJRlLADiOfVwDc2x oXTfL241GBOmVYKRPKSqpF q5TABpuvZfzlVltGRZk924 M117t8cwWVBlrrNunRaWcw zgn3qzS779DWZbsHDgxbQm ReUfWDEzcCIsbST0YAPgGC 8qwreoRgMpHH9bvjrjLmLo UK2mekw0VxUnKA4gebynYm YoVFiyBTHrbphaFAIfo3Yc imopAM7nP2Glk0S0cT6tlZ LvPNAxbOIwQjWyVKTbeu4o eUYyNKxhw2TmXGH6zbQ4mZ FptKGhQVFdNM62Bxwlv0Ie YtcaMKJ4GSRfblAgt8Pae2 vyLuQwavHdC2kdJ5YiGZPw ALIzQCDxIzLxfcLyu2Mxe0 YuiSHveXu7e1xlWUXnPDXn iTbme6siMPM9SRWbQ0W4jN Ato6uwEFkaBTYcsPB2igep FPdeSSNdxfD6yqlgJUeaJB OwjHC1byseACfjLBDtEbL1 vdqyGQptSJXgSWG8OZynn7 88POF1OXewJpzdOXftTJHz bmNvbnRccGduZGVjXHBsYW luXHBsYWluXGYwXGZzMjRc qWmsvFehwT3xKvCmVuTcGB sxYF2gNLRlX5lfhTShNCNz CVSgS7tbCkFlxR7diGcjPK iqbpHpMWOnQ0XjxdHrJQwc UYMqci1tiOqbCBznCiIjZJ Coc6i0kSM5hSQnsAR2qWEp oYsrXJ5hpDIhPCXaL8Eex1 zrgdPfnO0gIQCeME5vILVq OVE2ewkmJNSnz2MteZDnEI JlIDMgdGFuLXBpbmsgdGlz z4TrGFXoVOvhCI53czZeMH MawVBffxyvzKRchN7aDJ0i PMDvRUcmFDxdWAX2MYF0PK YqlZTnf6zlbvH6nIlgyJBa ewYvOqwmaEHiUEZvSI2dUO D8Rj6qaESqOKCbrwS2a1Bv IGluIEExLlxwYXJccGFyIF HjtKIqWDWpD8RbyIgwnltt KPRfXDKKS2HjJ70kcNPnqD == MICROSCOPIC DESCRIPTION f9nngVDiKRLbsGKsKbVqJP (test code = 3371) JgDCSig2dhSDWhpASpMfVa MzNcZnRuYmpcdWMxXGRlZm Tkq6gnd737zHLfu3rlTPSv XnX4mRChVHVqvBBdK292i1 mwj5dmtzEobMV6RYDfIPV5 HByxykItvoU2AYvaaPRpVq V1PXcwmyQlDRuotwGujcXw Cpm8MJLgT383ZSN9oWeth4 tmHYC8DYPhWROkScJgUf2m qKFfJ071ZHLqLJKPNMUlxL c9WBCrbfEnxyUanCVOe526 Y094k7vtPGNavyWiiGrVfh qrk5fzM014PJWquZCnsnQf EtQqBJEgrCYijLJ1JTLoCP 4nawbyPqXrTE3bfqkxUqXs WL9wdit8GcJlNF0nyklpGi MtRCftBTRicrmbLGYjc3Pg sorhPY2fX4Olt7Q0bF3vtP AeBTHbuKDxTbRlBFSmdl9e nAInQOeuj8XbRIT9tlZ8lZ YpcBAlERUwSI06Tfasi9Yk RivgSEH1YAQkavSbm2Aji2 diGbIlhzRxJ6wcX1MfYOPv LEGwUTYoHjTgoeHer6Jku5 DzeJBbqWx2t5koGSMfWNFx zOxqh8dqFBA4DHGyX5V7jP Ixw2jbWNmfNSSpxRP5ovrg MKyrOBObjoO9xtlbKAxxDL IwrGQ1nomkDPcgUITaPpD1 qxbxVJdpEPKoRZD4XMpni4 75GYY0RQrbNdovARhvARVt bmNvbnRccGduZGVjXHBsYW luXHBsYWluXGYwXGZzMjRc vCwicYcgcU4cFfNrHqPkVO ktXG8iOHEtQ9yycOBwJWIi UCQtX9gfUvTekT0odKhsDS nhnzOzZXSDTnZLAw4FZL7r cGFyfQ== SPECIAL STUDIES (test f0gffWNhEMNhuTWgDgMqIQ code = 3376) QlQKByp0uwWWNpvBRnOmQc MzNcZnRuYmpcdWMxXGRlZm Ofw4rtf463cKAwx3bfWMKj DiH3vVLqMBMmnNQcJ579WV KoRKecg3sud0VrHDIjiMVg t9B4JVUCHVpsRdVpY877ET ChBGzwq0eog5ZqVQLyuJXi e8K0RGNZwtgbmQg5gRbiS8 4vs8W3AyocW7tvRTGqPQPy Q1CbIZ6pIIIaVxk7RWN4MO A0JMVsOBPqC0OcDU3uIPCj sKNuOTr0g8rllWduMVXnED X8r8ufSCphwcY6BB6vxt4c jGg3h0wgzfRvGSXjQECpfU JPCMHnD8MvmIhqCz6zeOk7 x5ujCvpttmF2mLEsBxLnNw MyMFxsaTBccmkwIENvUGF0 hEGMVBm0D282z8wfBLUubx AyvXzZcwthz9lmI916QOGo cGVydzEyMjQwXHBhcGVyaD D5JZAsPL7lstukFrUiJK0z wuvuQwUgAP4yxgr9GrZeHN 1hcmdiNzIwXGhlYWRlcnkw ZVArk5DrkfeoCG4jC8Wef9 X1zA5edQRsQBFmaEVuFoOn BLPgda3ymJSyOWpbNAJ6KX JuedLld5Jnb8kdHlLnubOa Y6wvS1FxKJUqHDYnVZIvWo MnncEfm7Fdx1PzgBImzJc0 j8ktJJObQFEhdHbdw3tyEQ X1BRHuX0G7yXFxj1llFUas FXDdhPJ0ldmmUGddKXSujb T5qjgfSBccWZKouKJ0hhjr DRkwDVUpRcJ3qbstCYqhMO GcAIC0POoie395AHE1VDft YmtwYWdlXHBnbmNvbnRccG duZGVjXHBsYWluXHBsYWlu XGYwXGZzMjRccWxccGxhaW 2uByTqWyVkPfdjJZ8rAWGv R6uovJIrRCWtRLYmA6ozGb VcnF3trTkmJTkcAcEnZfCo SwXRbPWevJ95JKItjnO1NJ Sdy14tl6ExyLfiybVbEJGa HQncI9b4QDUwBTTwKZV4l5 Qcn5YmiY2foT5ltUtnyL5p aEGyfDB8dotyc8Qiw7PiF2 lhbCBzdGFpbnMuXHBsYWlu XGYxXGZzMjJcbGFuZzEwMz NcaGljaFxmMVxkYmNoXGYx SIfwK4hhGsGkK3FcCHXgGq OmqRRtP0xmoYVgGVNqDGma XGYxXGZzMjJcbGFuZzEwMz NcaGljaFxmMVxkYmNoXGYx UWrqI9mwNuCqR7DsXCKvSh ClZomKI4rmTVApEXhTMxED KT3pX3FQYyGERYTRHNdON0 2SPXLZKZYsQN9QZQ0UB1DL UH6gCVDfITfvFIUaRYJaFt JcbGFuZzEwMzNcaGljaFxm PYxhCqZpMKPcSVatI8yhXd NoT1RxGOJwOfYtdKDlH2kv cGFyXHBsYWluXGYxXGZzMj JcbGFuZzEwMzNcaGljaFxm JDnyNxJnQXKzMOtfZ0tdTm VyY3WzHZRwFxIuK33ijRJe bCBTbGlkZXMgRXhhbWluZW J1BIDOwa9vn9OwAHHmgp97 lcZnh8YzoQp0ZBBwj838dh 3tihU8OTCiYDW4ZEt1YFOz ATLsjE0aEeQ8bJWnSFNfMF S4XVH3SFGfy3N1FQ9qBKBs BSMlLLJnkeUey3zer8keWV GsJRT1qwSutZ6cN2JtVSEj j5HsfTxiQJIefInoaeHaPC TnvZVgTQLywK42KMXpqIDn oATeXWFjRMN6EXtujA1kGo TPujRdmq8cmBNql3OjhUv6 ZSBhbmQgbmVnYXRpdmUgY2 9pfGWobLCis1uvksIqrxEk pJPrkAWfNZAfBGP7TPd4QI RlZFxwbGFpblxmMVxmczIy FUojwqhnPIJdKJebG4fvHr LjDYFkwQbuDSqeq5QiMXPq FRGbIyuvrqWdZGy7duMwHG BhclxwbGFpblxmMVxmczIy SRsmyqlfVWUdWRvsW5hwKy GuEONkpPabGUndy2ElJMRs XGNmMlxmczIyICBccGxhaW 7oTnSeVmHoPyyjIX7kQKHq U7dayTUbFFOqWKEsM2iiBd PdiW2vyNxuKZxnIcRiNxFt MlxsdHJjaFxwYXJccGxhaW 8oAuIoBoIdQrqdRH5rXPIa P6kknRUeOQBqBESlQ2ryNc KpzQ4tnXbqUUtrMrPzQnNm JwRYnA03fe3vaNT3o7TtNC 8gq9KvyPL0MKDhgbxzAHom xFZykUptJqL9GMWhfXHxDf 7kyQIeLNH0RJTirYxdzbRJ cI2tYPPnFPbfwQIvyvqfNC xmczIyXGxhbmcxMDMzXGhp T1hoFkHwAYKxkEkzTVblk8 NoXGYxXGNmMlxmczIyXHU4 AvY1XZhzNNGleMtfsT2xRy SoPrDeLrmnUB8eOCYkE5fa nCFwEPCoYYNoF5lpIsTioN 9jaFxmMVxjZjJcZnMyMiBz EK3vEDlnVFkkY1UeaVNiEO IRGRSlh4riI1hzEUWmi1Zl uU2zqLL4dJDiSTDdrJS6CT EmUHZ1CBtcuFElCXFkFYNm vNAtpFEoAo0epDGqZ9TuQ7 hwsoHpsOHhxLO0uOQgXRca hvGyTUK4XPRzrM1nRL8yMW WhkIAjTT7wbMMoYCQwPTNf ICYrBEQsd6UvTNYhxa85PS ScJrcvmGbqAMZyEx3jTz5p FDNrtyBlOMC2FnGBCA6qtu yetPXfzIvdik0xGAtvZZZJ IJQpDISgSPP6JQXsmM8iBI I0gAQ4YLZ8O3sjD4uwRGKq vlGpQF5aINUrzCCrumMsZD khDY4mhNFrPAZwn5Uhwtno QDGlCMM0KAK1QUomVLXdGF UcLt1lDBVkoI0aK9YiQRI1 caBmn4SgCaOBeJOyuN38rF Eiiz02ASKjYDZzS0OpTUOf IGFzIGludmVzdGlnYXRpb2 7liWXxdfOse5EssvSlEXLa Y6hrRABntLBbeQAen7KyyB 7ydFAnasOsXUR4zUEgSFUm rQ5cLQWaaEtpKNKprD5vO9 HvIZzrUh7iEDFqepntYA3p by72AC8bprJuEW4orgFoHV 22jmOuJxNxKMs2PDzEPHpW BZu5FOIbzgJnsXFesDJdCJ WrfI0ssQPxAi1nwKCyzXoj EYXbbYSrTFnadIgsD3nxnf jpYXjkbRAxk3RkcN8czIU5 NMO8rA3mAvavpPXlosnqVe xmczIyXGxhbmcxMDMzXGhp X5uiGwOkGLDzjJjeWwdpy8 NoXGYyXGZzMjJccGFyXHBh zuMacLexzO1eCaMuKnUvCC txqJMukmiuVtqlsgD6MTNb cn0= Gross assessment was [facility] performed at ([facility], = 2777) Department of Pathology, [address] [place] [address], Technical component was [facility] performed at ([facility], = 2778) Department of Pathology, [address] [place] [address], Professional component [facility] was performed at ([facility], code = 2779) Department of Pathology, [address] [place] [address], [facility] [id number] 10:48:00Surgical Pathology Report Case: [id number] Authorizing Provider: David Alfred, Collected: 01/17/2020 05:03 PM OrderingLocation: [address] Received: 01/18/2020 09:09 AM Service Pathologist: [...] REPORT TO FOLLOW.Signing Pathologist Direct Phone Line: [phone] signed by Wayne Mcadams MD on 01/18/2020 at 4:47 [id number], [id number], [id number] BLEEDGastric biopsyReceived in formalin labeled withthe patient's name, accession number and "gastric biopsy" are 3 fam-pink tissue fragments measuring up to 0.3 cm in greatest dimension which are filtered and submitted in toto in A1.MARYLIN Augustin ([facility])cmPERFORMED.The interpretation of this case included the use of immunohistochemistry or special stains.BLOCK A1- WARTHIWesley STARRYAN, HELICOBACTER IMMUNOSTAIN.Control Slides Examined: In-house known positive controls were evaluated along with the test tissue. These control slides run alongside of the patients sample show appropriate staining. Internal positive and negative controls when available are evaluated Immunohistochemistry technical testing was performed at [facility], Pathology Laboratory where it was developed [...] qualified to perform high complexity clinical laboratory testing.[facility], Department of Pathology, [address] [place] [address], [facility], [facility] of [facility]ology, [address] [place] [address], [facility], Department of Pathology, [address] [place] [address], Szzsdr doppler arm, right 2020-01-19 11:48:48Ejection FractionSLEH ECHO [...] Date of Study 01/18/2020 Age 74 VisitNumber [id number] Gender Male Accession Number [id number] Date of 1945 Referring Thao Baker Room Number 1023 Physician Zuri Manager Animation Wyatt Gonzalez Interpreting Meenakshi Hill Pineda Physician [...] in cm/s ; Diameters are measured in [facility] Basic Metabolic [id number] 04:55:00 Test Item Value Reference Range Interpretation [...] (test code = 7.7 mg/dL 8.4-10.2 L 71458-9) EGFR (test code = 118 mL/min/1.73 [place] [address]-8) NOT ACCURATE CREATININE CLEARANCE IN PREDICTING GLOMERULAR FILTRATION RATE . ESTIMATED GFR I S NOT APPLICABLE FOR DIALYSIS PATIENTS. BEAR (test code = BEAR) Independent Video Producer ID - AYAZ W Lab Interpretation Abnormal (test code = 98060-1) [facility] CenterMagnesium2020-06-16 04:55:00 Test Item Value Reference Range Interpretation Comments Magnesium (test code = 2.2 mg/dL 1.6-2.6 98075-2) BEAR (test code = BEAR) Independent Video Producer ID Jose JACOME W Lab Interpretation (test Normal code = 42117-5) [facility] CenterMAGNESIUM2020-06-16 04:55:00 Test Item Value Reference Range Interpretation Comments MAGNESIUM (BEAKER) (test code = 2.2 mg/dL 1.6-2.6 627) Independent Video Producer ID Jose JACOME WBASIC METABOLIC [id number] 04:55:00 Test Item Value Reference Range Interpretation [...] S NOT APPLICABLE FOR DIALYSIS PATIEN TS. Independent Video Producer ID Jose JACOME WCBC with platelet count + automated [id number] 04:31:00 Test Item Value Reference Range Interpretation [...] 450 K/CU MM MPV (test code = 16749-8) 11.9 fL 9.4-12.4 nRBC (test code = [...] 2801) Lab Interpretation (test code = Abnormal 47707-4) [facility] W/PLT COUNT & AUTO [id number] 04:31:00 Test Item Value Reference Range Interpretation [...] PERCENT (BEAKER) (test code = 2801) Prothrombin time/[id number] 04:30:00 Test Item Value Reference Range Interpretation [...] valves. Lab Interpretation Abnormal (test code = 77128-8) [facility] CenterPROTHROMBIN TIME/[id number] 04:30:00 Test Item Value Reference Range Interpretation [...] for patients wiht mechanical heart valves.Prepare Leuko-Red [id number] 23:54:00 Test Item Value Reference Range Interpretation Comments CROSSMATCH (test code = 2264) COMPATIBLE Unit ABO (test code = B Pos 7601284) UNIT NUMBER (test code = [id number] 934-0) Status (test code = 6372858) TX_TIMEINCHART Blood Bank Product (test code RED BLOOD CELLS = 2263) PRODUCT CODE (test code = T6640P19 933-2) [facility] CenterECG 12 [id number] 10:52:57Interface, External Ris In - 01/18/2020 10:53 AM CDTVentricular Rate 84 BPMAtrial Rate 84 BPMP-R Interval 228 msQRS Duration 86 msQ-T Interval 414 msQTC Calculation(Bazett) 489 msP Mounds 89 degreesR Mounds 40 degreesT Mounds 35 degreesSinus rhythm with 1st degree A-V blockNonspecific ST abnormalityProlonged QTAbnormal ECGNo previous ECGs availableConfirmed by MD HARRIETT, ROULA ([id number]) on 01/18/2020 10:52:55 AM [facility] CenterMAGNESIUM2020-06-15 05:53:00 Test Item Value Reference Range Interpretation Comments MAGNESIUM (BEAKER) (test code = 2.4 mg/dL 1.6-2.6 627) Independent Video Producer ID - PIAYA LBASIC METABOLIC [id number] 05:53:00 Test Item Value Reference Range Interpretation [...] S NOT APPLICABLE FOR DIALYSIS PATIEN TS. Independent Video Producer ID - PIAYA LPROTHROMBIN TIME/[id number] 05:26:00 Test Item Value Reference Range Interpretation [...] mechanical heart valves.CBC W/PLT COUNT & AUTO [id number] 05:15:00 Test Item Value Reference Range Interpretation [...] = 2801) CBC W/PLT COUNT & AUTO [id number] 12:38:00 Test Item Value Reference Range Interpretation [...] (BEAKER) (test code = 2801) Hemoglobin and jquyrwfklw9927-08-68 05:57:00 Test Item Value Reference Range Interpretation Comments Hemoglobin (test code = 6.2 13.7- 17.5 GM/DL L 786-4) Hematocrit (test code = 19.3 % 40.1-51 L 4544-3) BEAR (test code = BEAR) Independent Video Producer ID - [id number] Lab Interpretation (test Abnormal code = 21508-4) [facility] CenterHEMOGLOBIN AND [id number] 05:57:00 Test Item Value Reference Range Interpretation Comments HEMOGLOBIN (BEAKER) (test code = 6.2 GM/DL 13.7-17.5 L 410) HEMATOCRIT (BEAKER) (test code = 19.3 % 40.1-51.0 L 411) Independent Video Producer ID - [id number] B12 and Dpeuvp0664-56-56 05:35:00 Test Item Value Reference Range Interpretation Comments Vitamin B12 (test code = >2000 213-816 H 2132-9) Folate (test code = 14.20 ng/mL >=7.00 2284-8) BEAR (test code = BEAR) Independent Video Producer ID - PIAYA L Lab Interpretation (test Abnormal code = 82507-9) [facility] CenterVITAMIN B12 AND [id number] 05:35:00 Test Item Value Reference Range Interpretation Comments VITAMIN B12 (BEAKER) (test code = > pg/mL 213-816 H 774) FOLATE (BEAKER) (test code = 362) 14.20 ng/mL >=7.00 Independent Video Producer ID - MARVA FAiqnglke1516-51-44 05:27:00 Test Item Value Reference Range Interpretation Comments Ferritin (test code = 947.60 ng/mL 5-275 H 2276-4) BEAR (test code = BEAR) Independent Video Producer ID - PIAYA L Lab Interpretation (test Abnormal code = 31593-1) [facility] CenterFERRITIN2020-06-14 05:27:00 Test Item Value Reference Range Interpretation Comments FERRITIN (BEAKER) (test code = 947.60 ng/mL 5.00-275.00 H 361) Independent Video Producer ID - PETEYAYA LHEMOGLOBIN AND [id number] 03:47:00 Test Item Value Reference Range Interpretation Comments HEMOGLOBIN (BEAKER) (test code = 5.3 GM/DL 13.7-17.5 LL 410) HEMATOCRIT (BEAKER) (test code = 16.1 % 40.1-51.0 L 411) Independent Video Producer ID - MarizaPROTHROMBIN TIME/[id number] 03:38:00 Test Item Value Reference Range Interpretation [...] INR is2.5-3.5 for patients wiht mechanical heart valves.Lvxnoxqzgsg4427-29-29 02:11:00 Test Item Value Reference Range Interpretation Comments Haptoglobin (test code = 277 mg/dL 14-258 H 4542-7) BEAR (test code = BEAR) Independent Video Producer ID - MARVA L Lab Interpretation (test Abnormal code = 82119-3) [facility] CenterHAPTOGLOBIN2020-06-14 02:11:00 Test Item Value Reference Range Interpretation Comments HAPTOGLOBIN (BEAKER) (test code = 277 mg/dL 14-258 H 366) Independent Video Producer ID - MARVA Kurt, TIBC, % sat. (without ferritin)2020-01-17 02:10:00 Test Item Value Reference Range Interpretation Comments Iron (test code = 2498-4) 38.0 ug/dL 40-160 L TIBC (test code = 2500-7) 151 ug/dL 250-450 L Iron % Saturation (test 25 % 20-55 code = 2502-3) BEAR (test code = BEAR) Independent Video Producer ID - MARVA L Lab Interpretation (test Abnormal code = 54451-7) [facility] CenterIRON, TIBC, % SAT. (WITHOUT FERRITIN)2020-01-17 02:10:00 Test Item Value Reference Range Interpretation Comments IRON (BEAKER) (test code = 547) 38.0 ug/dL 40.0-160.0 L TOTAL IRON BINDING CAPACITY 151 ug/dL 250-450 L (BEAKER) (test code = 769) IRON % SATURATION (2) (BEAKER) 25 % 20-55 (test code = 2590) Independent Video Producer ELVIRA DURHAM KRISTEN, [id number] 02:00:00 Test Item Value Reference Range Interpretation Comments ABO Grouping (test code = 2588) B Rh Factor (test code = 2589) POS [facility] CenterType and screen, [id number] 01:59:00 Test Item Value Reference Range Interpretation Comments ABO/RH AUTOMATED (BEAKER) (test B POSITIVE code = 2260) Ab Scrn (test code = 890-4) NEGATIVE [facility] CenterHepatic function [id number] 01:50:00 Test Item Value Reference Range Interpretation Comments Protein, Total (test code 5.8 6.0- 8.3 gm/dL L = 2885-2) Albumin (test code = 2.7 g/dL 3.5-5 L 83576-1) Total Bilirubin (test code 0.6 mg/dL 0.2-1.2 = 1975-2) Bilirubin, Direct (test 0.4 mg/dL 0.1-0.5 code = 1968-7) Alkaline Phosphatase (test 71 U/L 40-150 code = 6768-6) AST (test code = 1920-8) 40 U/L 5-34 H ALT (test code = 1742-6) 26 U/L 6-55 BEAR (test code = BEAR) Independent Video Producer ELVIRA DURHAM L Lab Interpretation (test Abnormal code = 96499-8) [facility] CenterLactate dehydrogenase (LDH)2020-01-17 01:50:00 Test Item Value Reference Range Interpretation Comments LDH (test code = 2532-0) 484 U/L 125-220 H BEAR (test code = BEAR) Independent Video Producer ELVIRA DURHAM L Lab Interpretation (test Abnormal code = 76898-5) [facility] CenterMAGNESIUM2020-06-14 01:50:00 Test Item Value Reference Range Interpretation Comments MAGNESIUM (BEAKER) (test code = 2.4 mg/dL 1.6-2.6 627) Independent Video Producer ELVIRA DURHAM LBASIC METABOLIC [id number] 01:50:00 Test Item Value Reference Range Interpretation [...] S NOT APPLICABLE FOR DIALYSIS PATIEN TS. Independent Video Producer ID - MARVA LHEPATIC FUNCTION [id number] 01:50:00 Test Item Value Reference Range Interpretation [...] (test code = 26 U/L 6-55 347) Independent Video Producer ID - MARVA LLACTATE DEHYDROGENASE (LDH)2020-01-17 01:50:00 Test Item Value Reference Range Interpretation Comments LACTATE DEHYDROGENASE (BEAKER) (test 484 U/L 125-220 H code = 635) Independent Video Producer ID - MARVA LSARS-COV2/RT-PCR ([facility] & REF LABS)2020-01-17 01:38:00 Test Item Value Reference Range Interpretation Comments SARS-COV2/RT-PCR (test Not Detected Not Detected, Negative code = 4444356) SARS-COV-[address] [facility] (test code = 7034676) Negative results do not preclude SARS-CoV-2 infection [...] of the Act.Fact Sheet for Healthcare Pro viders:https://www.Ar[employer]/Documents/Xpert%20Xpress%20SARS%20CoV-2/Fact%20Sh eets/3023802%79TELL-HSZ-0%20HEALTHCARE%20PROVIDERS%20FACT%20SHEET.pdfFact Sheet for Healthcare Patients:https://www.[employer]/Documents/Xpert%20Xpress%20SARS%20CoV-2/Fact%20Sheets/3023801%20SARS-COV -2%20PATIENT%20FACT%20SHEET.pdfPerforming Laboratory:[facility], [place] [address]QN/[id number] 01:24:00 Test Item Value Reference Range Interpretation Comments Protime (test code = 16.5 11.9- 14.2 H 5902-2) seconds INR (test code = 1.4 <=5.9 6301-6) PTT (test code = 31.0 22.5- 36.0 72040-0) seconds BEAR (test code = BEAR) Effective 12/31/2018: PT Reference Range ChangeNew: 11.9-14.2 Previous: 11.7-14.7 RECOMMENDED COUMADIN/WARFARIN INR THERAPY RANGESSTANDARD DOSE: 2.0-3.0 Includes: PROPHYLAXIS for venous thrombosis, systemic embolization; TREATMENT for venous thrombosis and/or pulmonary embolus.HIGH RISK: Target INR is 2.5-3.5 for patients wiht mechanical heart valves. Lab Interpretation Abnormal (test code = 70359-4) [facility] CenterPT/[id number] 01:24:00 Test Item Value Reference Range Interpretation [...] is2.5-3.5 for patients wiht mechanical heart valves.Reticulocyte [id number] 01:20:00 Test Item Value Reference Range Interpretation Comments % Retic (test code = 4.9 % 0.5-1.8 H 22532-2) BEAR (test code = BEAR) Independent Video Producer ID - [id number] Lab Interpretation (test Abnormal code = 51048-7) [facility] CenterCB W/PLT COUNT & AUTO [id number] 01:20:00 Test Item Value Reference Range Interpretation [...] PERCENT (BEAKER) (test code = 2801) RETICULOCYTE [id number] 01:20:00 Test Item Value Reference Range Interpretation Comments RETICULOCYTE COUNT PCT (BEAKER) (test 4.9 % 0.5-1.8 H code = 575) Independent Video Producer ID - [id number]
[2020-03-01] MEDS ORDERED: NA CHLORIDE 0.9% 500 ML ONE (09:04)
[2020-03-01] MEDS ORDERED: ACETAMINOPHEN 325 MG TABLET ONE (10:18)
[2020-03-01 11:04] LABS: MPV 8.9 fL (7.6-11.3)
[2020-03-01 12:47] LABS: Platelet Estimate DECR
[2020-03-01 13:08] VITALS: O2SAT 98; BMI 29.8
[2020-03-01 13:20] VITALS: BP 141/62; TEMP 98.1
== END 2020-03-01 11:10 | disposition home or self-care (01) ==
LOC: DS 07:43
PROVIDERS: ATTEND Internal Medicine Hematology & Oncology
DX: D69.59 Other secondary thrombocytopenia (principal); T45.1X5A Adverse effect of antineoplastic and immunosuppressive drugs, initial encounter; C83.30 Diffuse large B-cell lymphoma, unspecified site
CPT/HCPCS: 85025; 36415; 86900; 86850; 85049; 86901; 36430; P9035; J7040

== ENCOUNTER 2020-03-02 10:39 | Day surgery (SDC) | payer OTHER ==
--- OUTSIDE RECORDS SUMMARY | 2020-03-02 11:34 | XMS REPORT | Clinical Summary ---
:1945 Author Organization [facility] Address [address] [place] [address] Care Team Providers Name Role Phone Unavailable [...] ey injury) (HCC); MD Enrique Essential hypertension; Julianichfrank Gastrointestina l hemorrhage with melena; Thao Acute gastric u lcer with hemorrhage MD Wong after 03/02/2019 Social History Tobacco Use Types Packs/Day Years [...] procedure are in the results section. after 03/02/2019 Results SARS-CoV2/RT-PCR ([facility]) (02/12/2020 11:50 AM CDT)Only the most recent of2 resultswithin the time period is included. SARS-COV2/RT-PCR Not Detected Not Detected, Negative [facility] SARS-COV-2 PERFORMING LAB [facility] Specimen Other Narrative Performed At Negative results do not preclude SARS-CoV-2 [facility] infection and should not be used as [...] the Act. Fact Sheet for Healthcare Providers: https://www.[employer]/Documents/Xpert%20Xpre ss%20SARS%20CoV-2/Fact%20Sheets/302-9242%20SAR S-COV-2%20HEALTHCARE%20PROVIDERS%20FACT%20SHEE T.pdf Fact Sheet for Healthcare Patients: https://www.[employer]/Documents/Xpert%20Xpre ss%20SARS%20CoV-2/Fact%20Sheets/302-2186%20SAR S-COV-2%20PATIENT%20FACT%20SHEET.pdf Performing Laboratory: [facility] [address] [place] [address]. [place] [address] Performing Organization Address City/State/Zipcode Phone Number [address] [address] CENTER EKG-SCANNED (01/20/2020 1:53 PM [...] included. WBC 5.6 3.5 - 10.5 K/L [facility] RBC 2.50 (L) 4.63 - 6.08 M/L [facility] Hemoglobin 7.4 (L) 13.7 - 17.5 GM/DL [facility] Hematocrit 23.1 (L) 40.1 - 51.0 % [facility] [place] MCV 92.4 (H) 79.0 - 92.[address] [facility] [place] MCH 29.6 25.7 - 32.[address] [facility] [place] MCHC 32.0 (L) 32.3 - 36.5 GM/DL [facility] RDW 16.9 (H) 11.6 - 14.4 % [facility] [place] Platelets 156 150 - 450 K/CU MM [facility] MPV 11.9 9.4 - 12.[address] [facility] [place] nRBC 0 0 - 0 /[address] [facility] [place] % Neutros 73 % [facility] [place] % Lymphs 13 % [facility] % Monos 9 % [facility] % Eos 2 % [facility] % Baso 0 % [facility] [place] # Neutros 4.11 1.78 - 5.38 K/L [facility] # Lymphs 0.74 (L) 1.32 - 3.57 K/L [facility] # Monos 0.53 0.30 - 0.82 K/L [facility] # Eos 0.12 0.04 - 0.54 K/L [facility] # Baso 0.02 0.01 - 0.08 K/L [facility] Immature Granulocytes-Relative 2 (H) 0 - 1 % C [facility] Specimen Blood Performing Organization Address City/State/Zipcode Phone Number [facility] [address] [place] [address] CENTER Prothrombin time/INR (01/19/2020 3:55 AM CDT)Only the most recent of3 results within the time period is included. Protime 15.3 (H) 11.9 - 14.2 seconds [facility] INR 1.2 <=5.[address] [facility] [place] Specimen Blood Narrative Performed At Effective 12/31/2018: PT Reference Range [facility] Change New: 11.9-14.2Previous: 11.7-14.7 RECOMMENDED COUMADIN/WARFARIN INR THERAPY RANGES STANDARD DOSE: 2.0-3.0Includes: PROPHYLAXIS for venous thrombosis, systemic embolization; TREATMENT for venous thrombosis and/or pulmonary embolus. HIGH RISK: Target INR is 2.5-3.5 for patients wiht mechanical heart valves. Performing Organization Address City/[facility]/Zipcode Phone Number [facility] [address] [place] [phone] CENTER Magnesium (01/19/2020 3:55 AM CDT)Only the most recent of3 resultswithin the time period is included. Magnesium 2.2 1.6 - 2.6 mg/dL [facility] Specimen Blood Narrative Performed At Supervisor Tank Cleaning ID - AYAZ Horne [facility] Performing Organization Address [facility]/[place] Phone Number [address] [phone] CENTER Basic Metabolic Panel (01/19/2020 3:55 AM CDT)Only the most recent of3 results within the time period is included. Sodium 135 (L) 136 - 145 meq/L [facility] [place] Potassium 3.5 3.5 - 5.1 meq/L [facility] [place] Chloride 104 98 - 107 meq/L [facility] [place] CO2 24 22 - 29 meq/L [facility] [place] BUN 20 7 - 21 mg/dL [facility] [place] Creatinine 0.78 0.57 - 1.25 mg/dL [facility] Glucose 99 70 - 105 mg/dL [facility] [place] Calcium 7.7 (L) 8.4 - 10.2 mg/dL [facility] EGFR 118Comment: ESTIMATED GFR IS mL/min/1.73 sq m [facility] NOT ACCURATE CREATININE [facility] CLEARANCE IN PREDICTING GLOMERULAR FILTRATION RATE. ESTIMATED GFR IS NOT APPLICABLE FOR DIALYSIS PATIENTS. Specimen Blood Narrative Performed At Supervisor Tank Cleaning ID - AYAZ Horne [facility] Performing Organization Address City/[facility]/[place] Phone Number [facility] [address] [place], [place] [phone] CENTER Prepare Leuko-Red RBC (01/18/2020 11:54 PM CDT) CROSSMATCH COMPATIBLE SAFETRACE TX Unit ABO B Pos SAFETRACE TX UNIT NUMBER [id number] SAFETRACE [place] Status TX_TIMEINCHART SAFETRACE [place] Blood Bank Product RED BLOOD CELLS SAFETRACE TX PRODUCT CODE [id number] SAFETRACE [place] CROSSMATCH COMPATIBLE SAFETRACE TX Unit ABO B Pos SAFETRACE TX UNIT NUMBER [id number] SAFETRACE TX Status TX_TIMEINCHART SAFETRACE TX Blood Bank Product RED BLOOD CELLS SAFETRACE TX PRODUCT CODE [id number] SAFETRACE TX CROSSMATCH COMPATIBLE SAFETRACE TX Unit ABO B Pos SAFETRACE TX UNIT NUMBER [id number] SAFETRACE TX Status TX_TIMEINCHART SAFETRACE [place] Blood Bank Product RED BLOOD CELLS SAFETRACE [place] PRODUCT CODE [id number] [place] Specimen Other Performing Organization Address [facility] Phone Number [place] Venous doppler arm, right (01/18/2020 4:00 PM CDT) Ejection Fraction [facility] Specimen Impressions Performed At Right Impression [facility] 1. There is [...] Upper Extremities Veins [facility] ECHO HEARTLAB MKCKESSON [facility] Demographics Patient NameFrancie CUEVAS of Study 01/18/2020 74 Visit [id number] Male of 1945 Referring Thao Hung Room Number 1023 Physician Zuri Concrete Inspector BEBA Mantilla Physician Procedure Type of Study: [...] of Study 01/18/2020 Age 74 Visit Number [id number] Gen varsha Male Accession Number [id number] Geoffrey e of 1945 Referring Thaoebony hung Number 1023 Physician Zuri Concrete Inspector Wyatt Gonzalez Int erpretin Meenakshi [place], BALBIRS [...] are measured in cm Performing Organization Address City/State/[place] Phone Number [facility] ECHO HEARTLAB MKCKESSON [facility] REPORT OF PROCEDURE - ENDOSCOPY URL (01/17/2020 5:18 PM CDT) Narrative Performed At This result has an attachment that is no t available. Tissue Exam (01/17/2020 5:03 PM CDT) Case Report Surgical Pathology Report Case: [id number] [facility] Authorizing Provider:David Ozuna, Collected: 01/17/2020 05:[address] [facility] Ordering Location: [address] Received:01/18/2020 09:09 AM Service Pathologist: Wayne Mcadams MD Specimen:Biopsy, Gas tric, Random gastric bx ADDENDUM Immunostain for helicobacter [facility] [employer] [facility] performed on block A1 is [facility] POSITIVE. DIAGNOSIS PART A RANDOM GASTRIC BIOPSY: CH I [employer] [facility] ANTRAL AND OXYNTIC MUCOSA WITH ACTIVE CHRONIC GA STRITIS. [facility] NEGATIVE FOR INTESTINAL METAPLASIA, DYSPLASIA, O R INVASIVE CARCINOMA. WARTHIN STARRY STAIN FOR HELICOBACTER IS NEGATIV E. IMMUNOSTAIN FOR HELICOBACTER IS PENDING, ADDENDU M REPORT TO FOLLOW. Signing Pathologist Direct Phone Line: CPT Code(s) 58244, 47993, 20143 [facility] [employer] [facility] CLINICAL HISTORY GI BLEED [facility] [employer] Assist H [facility] ER SPECIMEN SOURCE Gastric biopsy [facility] ALTH [facility] GROSS DESCRIPTION Received in formalin labeled with the patient's name, accession number and "gastric biopsy" are 3 afm-pink tissue fragments measuring up to 0.3 cm in greatest dimension which are filtered and submitted in toto in A1. [facility] MARYLIN Augustin (ASCP)cm MICROSCOPIC DESCRIPTION PERFORMED. [facility] SPECIAL STUDIES The interpretation of this c ase included the use of immunohistochemistry or special stains. [facility] BLOCK A1- GRISEL PEREA, HELICOBACTER IMMUNOSTA IN. [facility] Control Slides Examined: In -house known positive controls were evaluated along with the test tissue. These control slides run alongside of the patients sample show appropriate staining. Internal posit vivien and negative controls when available are [employer] Immunohistochemistry technic al testing was performed at [facility], Pathology Laboratory where it was developed and its performance characteristics were determined. It has not be en cleared or approved by [facility] U.S. Food and Drug Administration. The FDA has determined that such clearance or approval is not necessary. The test is used for clinical purposes. It should not be regarde d as investigational or for research. This laboratory is certified under the Clinical Laboratory Improvement Amendments of 1988 (CLIA-88) as qualified to perform high complexity clinical laboratory testing. Gross assessment was [facility] performed at [place], Department of [facility] Pathology, [address] [place] [address], Technical component was [facility] performed at [place], Department of [facility] Pathology, [address] [place] [address], Professional component [facility] was performed at [place], Department of [facility] Pathology, [address] [place] [address], Specimen Tissue Performing Organization Address City/State/Zipcode Phone Number [address] [address] [place] [employer] Leuko-Red RBC (01/17/2020 8:35 AM CDT)Only the most recent of4 resultswithin the time period is included.Hemoglobin and hematocrit (01/17/2020 5:38 AM CDT)Only the most recent of2 resultswithin the time period is included. Hemoglobin 6.2 (L) 13.7 - 17.5 GM/DL [facility] Hematocrit 19.3 (L) 40.1 - 51.0 % [facility] [place] Specimen Blood Narrative Performed At Supervisor Tank Cleaning ID - [id number] [facility] Performing Organization Address City/[facility]/Zipcode Phone Number [facility] [address] [place] [address] CENTER ABORH, manual (01/17/2020 1:27 AM CDT) ABO Grouping B [facility] Rh Factor POS [facility] Specimen Blood Performing Organization Address City/[facility]/Zipcode Phone Number [facility] [address] [place] [address] Vitamin B12 and Folate (01/17/2020 1:26 AM CDT) Vitamin B12 >2000 (H) 213 - 816 pg/mL [facility] [place] Folate 14.20 >=7.00 ng/mL [facility] [place] Specimen Blood Narrative Performed At Supervisor Tank Cleaning ID - PIAYA L [facility] Performing Organization Address City/[facility]/Zipcode Phone Number [facility] [address] [place] [address] [place] Iron, TIBC, % sat. (without ferritin) (01/17/2020 1:26 AM CDT) Iron 38.0 (L) 40.0 - 160.0 ug/dL [facility] TIBC 151 (L) 250 - 450 ug/dL [facility] Iron % Saturation 25 20 - 55 % [facility] Specimen Blood Narrative Performed At Supervisor Tank Cleaning ID - MARVA Aguila [facility] Performing Organization Address City/[facility]/[place] Phone Number [address] [address] CENTER Haptoglobin (01/17/2020 1:26 AM CDT) Haptoglobin 277 (H) 14 - 258 mg/dL [facility] [place] Specimen Blood Narrative Performed At Supervisor Tank Cleaning ID - MARVA Aguila [facility] Performing Organization Address [facility]/[place] Phone Number [address] [address] CENTER Ferritin (01/17/2020 1:26 AM CDT) Ferritin 947.60 (H) 5.00 - 275.00 ng/mL [facility] Specimen Blood Narrative Performed At Supervisor Tank Cleaning ID - MARVA Aguila [facility] Performing Organization Address [facility]/[place] Phone Number [address] [address] CENTER Type and screen, automated (01/17/2020 12:57 AM CDT) ABO/RH AUTOMATED (LONNIE) B POSITIVE [facility] Ab Scrn NEGATIVE [facility] Specimen Blood Performing Organization Address City/[facility]/[place] Phone Number [address] [address] PT/aPTT (01/17/2020 12:57 AM CDT) Protime 16.5 (H) 11.9 - 14.2 seconds [facility] INR 1.4 <=5.[address] [facility] [place] PTT 31.0 22.5 - 36.0 seconds [facility] Specimen Blood Narrative Performed At Effective 12/31/2018: PT Reference Range [facility] Change New: 11.9-14.2Previous: 11.7-14.7 RECOMMENDED COUMADIN/WARFARIN INR THERAPY RANGES STANDARD DOSE: 2.0-3.0Includes: PROPHYLAXIS for venous thrombosis, systemic embolization; TREATMENT for venous thrombosis and/or pulmonary embolus. HIGH RISK: Target INR is 2.5-3.5 for patients wiht mechanical heart valves. Performing Organization Address City/[facility]/[place] Phone Number [address] [phone] [place] Reticulocyte count (01/17/2020 12:57 AM CDT) % Retic 4.9 (H) 0.5 - 1.8 % [facility] [place] Specimen Blood Narrative Performed At Supervisor Tank Cleaning ID - [id number] [facility] Performing Organization Address [facility]/[place] Phone Number [address] [address] CENTER Lactate dehydrogenase (LDH) (01/17/2020 12:57 AM CDT) LDH 484 (H) 125 - 220 U/L [facility] [place] Specimen Blood Narrative Performed At Supervisor Tank Cleaning ID - PIAYA L [facility] Performing Organization Address [facility] Phone Number [address] [address] [place] Hepatic function panel (01/17/2020 12:57 AM CDT) Protein, Total 5.8 (L) 6.0 - 8.3 gm/dL [facility] [place] Albumin 2.7 (L) 3.5 - 5.0 g/dL [facility] [place] Total Bilirubin 0.6 0.2 - 1.2 mg/dL [facility] [place] Bilirubin, Direct 0.4 0.1 - 0.5 mg/dL [facility] Alkaline Phosphatase 71 40 - 150 U/L [facility] AST 40 (H) 5 - 34 U/L [facility] HE ALTH [facility] ALT 26 6 - 55 U/L [facility] HE ALTH [facility] Specimen Blood Narrative Performed At Supervisor Tank Cleaning ID - PIAYA L [facility] Performing Organization Address City/State/Zipcode Phone Number [facility] [address] [place] [address] CENTER ECG 12 lead (01/17/2020 12:08 AM CDT) Specimen Narrative Performed At Ventricular Rate 84 BPM GE MUSE Atrial Rate 84 BPM P-R Interval 228 ms QRS Duration 86 ms Q-T Interval 414 ms QTC Calculation(Bazett) 489 ms P Hudson 89 degrees R Hudson 40 degrees T Hudson 35 degrees Sinus rhythm with 1st degree [...] 414 ms QTC Calculation(Bazett) 489 ms P Hudson 89 degrees R Hudson 40 degrees T Hudson 35 degrees Sinus rhythm with 1st degree A-V block Nonspecific ST abnormality Prolonged QT Abnormal ECG No previous ECGs available Confirmed by MD LORENZANA YOCHAI ([id number]) on 01/18/2020 10:52:55 AM Performing Organization Address City/State/Zipcode Phone Number GE MUSE after 03/02/2019 Insurance Payer Benefit Plan / Group Subscriber ID Type Phone A ddress [facility] [employer] HMO xxxxxxxxx MEDICARE MGD CARE CDC REVIEW CDC REVIEW xxxxxxxx [address] [place] [place] [address] Advance Directives For more information, please contact:[facility] [place], [place] [phone] Code Status Date Activated Date Inactivated Comments Full Code 01/16/2020 11:57 PM 01/19/2020 11:53 AM This code status was determined by: Patient
--- OUTSIDE RECORDS SUMMARY | 2020-03-02 11:35 | XMS REPORT | Continuity of Care Document ---
:1945 Author Organization [facility] Care Team Providers Name Role Phone [facility] Unavailable Un available Problems Problem Status Onset [...] Q12H, # 180 tab, 3 Refill(s), Pharmacy: [facility] amLODIPine 5 5 mg = 1 Active 03/05/20 Medica l mg oral tab, PO, 19 Group tablet BID, # 60 tab, 11 Refill(s), Pharmacy: [facility] 808 amLODIPine 5 5 mg = 1 No Longer 08/25/19 Medi crow mg oral tab, PO, Active 19 Group tablet BID, # 60 tab, 11 Refill(s), Pharmacy: [facility]08 flecainide 100 mg = 1 Active 06/05/20 Medica l 100 mg oral tab, PO, 18 Group tablet Q12H, # 180 tab, 3 Refill(s), Pharmacy: [facility] 808 amLODIPine 5 5 mg = 1 Active 02/14/20 Medica l mg oral tab, PO, 18 Group tablet BID, # 30 tab, 11 Refill(s), Pharmacy: [facility]08 flecainide 50 50 mg = 1 Active 02/14/20 Medi crow mg oral tab, PO, 18 Group tablet Q12H, # 60 tab, 5 Refill(s), Pharmacy: [facility]08 Allergies, Adverse Reactions, Alerts [...] Number For Provider Date Date Visit Outpatient [id number] RANDEE 04/19 [facility] Santino Outpatient [id number] ECHO VISIT 05/[address] [facility] Outpatient [id number] [facility] 09[facility] [id number] [facility] [id number] [facility]ANDEE 06/13 [facility] [id number] RANDEE 07/03 [facility] [id number] OTHER 07/03 Active [facility] VISIT Santino [facility] Outpatient [id number] Wesley 07/03 07/04 Cardiology [place] /2016 [facility] Outpatient [id number] Wesley 07/03 07/04 [facility] [id number] 08/16 08/18 Cardiology Medical /2017 [facility] Outpatient [id number] RANDEE 12/25 [facility]WOT Santino [facility] Outpatient [id number] Randee 12/25 12/26 Cardiology [place]wot /2017 [facility] Outpatient [id number] [facility]ISIT 02/[facility] [id number] RANDEE 02/13 [facility] Outpatient [id number] Wesley 02/13 02/14 [facility] [place] [facility] [id number] Wesley 02/13 02/14 Cardiology [place] /2017 [facility] Outpatient [id number] RANDEE 06/05 [facility]OT /2018 Sant[facility] Outpatient [id number] Randee 06/05 06/06 Cardiology [place] /2017 [facility] Outpatient [id number] ECHO VISIT 09/05 Act [facility]ien [facility] Outpatient [id number] RANDEE 09/05 Active [facility]WOT /2019 [facility] Outpatient [id number] Wesley 09/05 09/06 [facility] Cardiology [place] /2018 [facility] Outpatient [id number] Randee 09/05 09/06 [facility] [place] /2018 [facility] Outpatient [id number] Randee 03/05 [facility] /2019 [facility] Outpatient [id number] Randee 03/05 03/06 Cardiology [place] /2018 [facility] Outpatient [id number] Randee 09/03 Active [facility] /2020 [facility] Outpatient [id number] Randee 09/03 09/04 Cardiology Hiw[place] /2019 /2019 [facility] Outpatient [id number] Randee 03/03 Active [facility] /2020 Santino [...]
--- OUTSIDE RECORDS SUMMARY | 2020-03-02 11:37 | XMS REPORT | Continuity of Care Document ---
:1945 Author Organization [facility] t Address [address] [place] [address] Care Team Providers Name Role Phone JACQUIE Attending Clinician Unavailable Jacquie GAMBLE Attending Clinician Enrique Avila MD Attending Clinician Zuri GAMBLE, Wong Attending Clinician [phone] Chana GAMBLE, Vivian Attending Clinician Tima GAMBLE, Raymond Attending Clinician Bib Mi Attending Clinician VISIT, ENGINE DESIGNER ECHO Attending Clinician Unavailable JACQUIE Admitting Clinician Unavailable Payers Payer Name Policy Type Policy Number Effective Date Expiration Source Date [facility] - xxxxxxxxx [facility] - CAREUNITED MEDICARE Medic al HMOxxxxxxxxx [facility] CDC REVIEWCDC xxxxxxxx [facility] REVIEW[facility] Medical [phone] Center Problems Condition Condition Condition Status Onset [...] kes - on on 00:00: Medical 00 [facility] 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 M emoria a 00:26:45 l (disorder) Shaun n Bradycardi a (disorder) Active Problem 09/06/2019 Medical Group Hypertensi Problem Active 2019-09-06 M emoria ve 00:26:45 l disorder, Santino systemic Hypertensi arterial ve (disorder) disorder, systemic arterial (disorder) Active Problem 09/06/2019 Medical Group Obesity Problem Active 2019-09-06 León tj (disorder) 00:26:45 l Obesity Normanna (disorder) Active Problem 09/06/2019 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 Social History Social Habit Start Date Stop Date Quantity Comments Source History [facility] Alcohol [facility] Std Drinks [facility] History [facility] Alcohol [facility] Binge [facility] Sex Assigned At [facility] History [facility] Alcohol 2020-01-17 2020-01-17 1 [facility] - Frequency 00:00:00 00:00:00 [facility] Smoking Status Start Date Stop Date Source Never smoker [facility] edical [facility] Medications Ordered Filled Start Stop Current Ordering Indication Dosage Frequency Signature Comments Components Source Medication Medication Date Date Medication? Clinician (SIG) Name Name pantoprazol 2019- Yes 40mg Q.5D Take 1 [facility] 01-18 tablet (40 [facility] - (PROTONIX) 00:00: 23:59 mg total) edical 40 MG 00 :00 by mouth 2 Center tablet (two) times daily for 90 days. pantoprazol 2019- No 40mg Q.5D Take 1 [facility] 6-15 06-16 tablet (40 [facility] - (PROTONIX) [...] Santino 09 180 tab, 3 Refill(s), Pharmacy: [facility] amLODIPine 2018-0 Yes 5 mg = 1 Mem oria 5 mg oral 8-01 tab, PO, l tablet 15:37: BID, # 60 Shaun n 07 tab, 11 Refill(s), Pharmacy: [facility] amLODIPine 2018-0 No 5 mg = 1 Mem oria 5 mg oral 1-21 tab, PO, l tablet 22:16: BID, # 60 Shaun n 21 tab, 11 Refill(s), Pharmacy: [facility] flecainide 2017-08 Yes 100 mg = 1 M emoria 100 mg oral 1-01 tab, PO, l tablet 16:47: Q12H, # Santino 00 180 tab, 3 Refill(s), Pharmacy: [facility] amLODIPine 2017-0 Yes 5 mg = 1 Mem oria 5 mg oral 7-12 tab, PO, l tablet 15:46: BID, # 30 Shaun n 41 tab, 11 Refill(s), Pharmacy: [facility] flecainide 2017-0 Yes 50 mg = 1 Me moria 50 mg oral 7-12 tab, PO, l tablet 15:46: Q12H, # 60 Celina nn 00 tab, 5 Refill(s), Pharmacy: [facility] Vital Signs Vital Name Observation Time Observation Value Comments Source Systolic blood 2020-01-19 07:00:00 122 mm[Hg] [facility] Diastolic blood 2020-01-19 07:00:00 64 mm[Hg] [facility] Heart rate 2020-01-19 07:00:00 74 /min [facility] Body temperature 2020-01-19 07:00:00 36.28 [facility] Respiratory rate 2020-01-19 07:00:00 18 /min [facility] Body weight Measured 2020-01-19 07:00:00 95.7 kg [facility] BMI 2020-01-19 07:00:00 28.61 kg/m2 [facility] Oxygen saturation in 2020-01-19 07:00:00 99 /min [facility] Arterial blood by Medical Ce nter Pulse oximetry Body height 2020-01-17 00:00:00 182.9 cm [facility] Systolic (mm Hg) 2019-09-03 16:13:00 León rial Santino Diastolic (mm Hg) 2019-09-03 16:13:00 Mem orial Normanna Heart Rate 2019-09-03 16:13:00 [facility] Height 2019-09-03 16:13:00 187.96 cm [facility] Weight 2019-09-03 16:13:00 [facility] BMI Calculated 2019-09-03 16:13:00 Memori al [place] Weight 2019-03-05 14:43:00 [facility] [place] Height 2019-03-05 14:43:00 187.96 cm [facility] BMI Calculated 2019-03-05 14:43:00 Memori al [facility] Heart Rate 2019-03-05 14:43:00 [facility] Systolic (mm Hg) 2019-03-05 14:43:00 León rial Normanna Diastolic (mm Hg) 2019-03-05 14:43:00 Mem orial Normanna Systolic (mm Hg) 2018-09-05 17:41:00 León rial Santino Diastolic (mm Hg) 2018-09-05 17:41:00 Mem orial [place]ino Heart Rate 2018-09-05 17:41:00 [facility] Height 2018-09-05 17:41:00 187.96 cm [facility] Weight 2018-09-05 17:41:00 [facility] BMI Calculated 2018-09-05 17:41:00 Memori al [place] BMI Calculated 2018-06-05 16:04:00 Memori al [place] Height 2018-06-05 16:04:00 185.42 cm [facility] Weight 2018-06-05 16:04:00 [facility] [place] Systolic (mm Hg) 2018-06-05 16:04:00 León rial Normanna Diastolic (mm Hg) 2018-06-05 16:04:00 Mem orial [place] Heart Rate 2018-06-05 16:04:00 [facility] [place] BMI Calculated 2018-02-13 15:20:00 Memori al [place]ino Weight 2018-02-13 15:20:00 [facility] Systolic (mm Hg) 2018-02-13 15:20:00 León rial Normanna Diastolic (mm Hg) 2018-02-13 15:20:00 Mem orial [place]ino Heart Rate 2018-02-13 15:20:00 [facility] [place] Height 2018-02-13 15:20:00 185.42 cm [facility] Height 2017-12-25 15:51:00 185.42 cm [facility] BMI Calculated 2017-12-25 15:51:00 Memori al [place]anna Weight 2017-12-25 15:51:00 [facility] Systolic (mm Hg) 2017-12-25 15:51:00 León rial Normanna Diastolic (mm Hg) 2017-12-25 15:51:00 Mem orial [place]anna Heart Rate 2017-12-25 15:51:00 [facility] Satn[place] Height 2017-07-03 17:24:00 185.42 cm [facility] Weight 2017-07-03 17:24:00 [facility] Systolic (mm Hg) 2017-07-03 17:24:00 León rial Normanna Diastolic (mm Hg) 2017-07-03 17:24:00 Mem orial Santino BMI Calculated 2017-07-03 17:24:00 Memori al [place] Heart Rate 2017-07-03 17:24:00 [facility] [place] Procedures Procedure Date / Time Performed Performing Clinician Sour e SARS-COV2/RT-PCR ([facility] & 2020-02-12 11:50:00 [facility] REF LABS) [facility] REPORT OF PROCEDURE - 2020-01-20 13:53:10 Provider, Default [facility] - ENDOSCOPY SCAN [facility] RHYTHM STRIP - SCAN 2020-01-20 13:53:05 Provider, Default [facility] TRANSFUSION SERVICE 2020-01-19 18:10:35 Provider, Default [facility] REPORT - SCAN [facility] BASIC METABOLIC PANEL (7) 2020-01-19 03:55:00 MELISSA Dhillon I [facility] MAGNESIUM 2020-01-19 03:55:00 [facility]INR 2020-01-19 [facility] & AUTO 2020-01-19 03:55:[address] [facility] DIFFERENTIAL [facility] PREPARE LEUKO-REDUCED RBC 2020-01-18 23:54:00 MartMELISSA Saxena I [facility] TRANSFUSION SERVICE 2020-01-18 18:00:14 Provider, Default [facility] VENOUS DOPPLER ARM, RIGHT 2020-01-18 16:00:00 Thao Keating [facility] BASIC METABOLIC PANEL (7) 2020-01-18 04:48:00 MELISSA Dhillon I [facility] MAGNESIUM 2020-01-18 04:48:[facility] PROTHROM[facility] TIME/INR 2020-01-18 04:48:00 [facility] W/PLT COUNT & AUTO 2020-01-18 04:48:00 [facility]VIN [facility] DIFFERENTIAL [facility] REPORT OF PROCEDURE - 2020-01-17 17:18:56 David Alfred [facility] ENDOSCOPY [facility] ED TISSUE EXAM 2020-01-17 17:03:00 David Alfred [facility] UPPER 2020-01-17 13:03:00 David Alfred [facility] ENDOSCOPY,SCLEROTHERAPY [facility] UPPER ENDOSCOPY,BIOPSY 2020-01-17 13:03:00 David Alfred [facility] CBC W/PLT COUNT & AUTO 2020-01-17 12:11:00 [facility] TRANSFUSE LEUKO-REDUCED 2020-01-17 08:35:27 [facility]LOOD CELLS [facility] TRANSFUSE LEUKO-REDUCED 2020-01-17 06:06:38 [facility] RED BLOOD CELLS [facility] HEMOGLOBIN AND HEMATOCRIT 2020-01-17 05:38:00 Jacquie [facility] PROTHROMBIN TIME/INR 2020-01-17 03:16:00 [facility] HEMOGLOBIN AND HEMATOCRIT 2020-01-17 03:16:00 Jacquie [facility] TRANSFUSE LEUKO-REDUCED 2020-01-17 02:57:49 [facility]LO[facility] CELL[facility] ABORH, MANUAL 2020-01-17 01:27:00 Marla Berger [facility] VITAMIN B12 AND FOLATE 2020-01-17 01:26:00 [facility] IRON, TIBC, % SAT. 2020-01-17 01:26:00 [facility] 2020-01-17 01:26:00 [facility] HAPTOGLOBIN 2020-01-17 01:26:00 [facility] BASIC METABOLIC PANEL (7) 2020-01-17 00:57:00 Jacquie I [facility] MAGNESIUM 2020-01-17 00:57:00 [facility] PANEL 2020-01-17 00:57:[address] [facility] S [facility] PT/APTT 2020-01-17 00:57:00 Jacquie [facility] RETICULOCYTE COUNT 2020-01-17 00:57:[address] [facility] LACTATE DEHYDROGENASE 2020-01-17 00:57:00 Jacquie [facility] (LDH) [facility] TYPE AND SCREEN, 2020-01-17 00:57:00 Jacquie [facility] s - AUTOMATED [facility] CBC W/PLT COUNT & AUTO 2020-01-17 00:57:[address] [facility] S t [facility] DIFFERENTIAL [facility] SARS-COV2/RT-PCR ([facility] & 2020-01-17 00:37:00 Jacquie [facility] - REF LABS) [facility] ECG 12-LEAD 2020-01-17 00:08:25 [facility] Encounters Start End Encounter Admission Attending Care Care Encounter Source Date/Time Date/Time Type Type Clinicians Facility Department ID 2019-09-03 2019-09-03 [place] [id number] 10:00:00 23:59:59 Abraham Mccartney 16 2019-03-05 2019-03-05 [place] [id number] 10:00:00 23:59:59 Abraham Mccartney 15 2018-09-05 2018-09-05 [place] [id number] 11:15:00 23:59:59 Abraham Mccartney 14 2018-09-05 2018-09-05 Outpatient Hiwot, [facility] [id number] 11:15:00 23:59:59 Abraham Mccartney 14 2018-09-05 2018-09-05 Outpatient VISIT, MG MG [id number] 10:45:00 23:59:59 NURSE ENGINE DESIGNER 13 ECHO 2018-09-05 2018-09-05 Outpatient VISIT, [facility] [id number] 10:45:00 23:59:59 NURSE ENGINE DESIGNER 13 ECHO 2018-06-05 2018-06-05 Outpatient Hiwot, [facility] [id number] 11:00:00 23:59:59 Abraham Bib 12 2018-02-13 2018-02-13 Outpatient Hiwot, [facility] [id number] 10:45:00 23:59:59 Abraham Bib 11 2018-02-13 2018-02-13 Outpatient VISIT, [facility] [id number] 10:00:00 23:59:59 NURSE ENGINE DESIGNER 10 SENTHIL 2017-12-25 2017-12-25 Outpatient Hiwot, [facility] [id number] 11:00:00 23:59:59 Abraham Bib 09 2017-08-16 2017-08-17 Outpatient [facility] [id number] 15:30:00 23:59:59 00 2017-08-16 2017-08-17 Outpatient [facility] [id number] 15:30:00 23:59:59 00 2017-07-03 2017-07-03 Outpatient Hiwot, [facility] [id number] 12:00:00 23:59:59 Abraham Bib 08 2017-07-03 2017-07-03 Outpatient Hiwot, [facility] [id number] 11:30:00 23:59:59 Abraham Bib 07 Results Test Description Test Time Test Comments Results Result Comments Source SARS-CoV2/RT-PCR ([facility] & Ref Labs) 2020-02-13 11:36:00 Test Item Value Reference Range Interpretation Comme nts SARS-COV2/RT-PCR (test code = Not Detected Not Detected, Negative 16876-0) SARS-COV-2 PERFORMING LAB [facility] (test code = 37620-7) BEAR (test code = BEAR) Negative results [...] of the Act. Fact Sheet for Healthcare Providers:https://www.amazingtunes/Documents/Xpert%20Xpress %20SARS%20CoV-2/Fact%20Sheets /3023802%85IFJJ-ZTE-0%20HEAL THCARE%20PROVIDERS%20FACT%20S HEET.pdf Fact Sheet for Healthcare Patients:https://www.Tab Asia/Documents/Xpert%20Xpress% 20SARS%20CoV-2/Fact%20Sheets/ 3023801%82NYID-QOO-0%20PATIE NT%20FACT%20SHEET.pdf Performing Laboratory:[place] [address] [place], [place] [address] [place], [place] [address]ARS-COV2/RT-PCR ([facility] & REF LABS)2020-02-13 11:36:00 Test Item Value Reference Range Interpretation Comments SARS-COV2/RT-PCR (test Not Detected Not Detected, Negative code = 9329617) SARS-COV-2 PERFORMING LAB [facility] (test code = 4797247) Negative results do not preclude SARS-CoV-2 infection [...] of the Act.Fact Sheet for Healthcare Pro viders:https://www.Get Together/Documents/Xpert%20Xpress%20SARS%20CoV-2/Fact%20Sh eets/302-3802%24LPGB-BGM-2%20HEALTHCARE%20PROVIDERS%20FACT%20SHEET.pdfFact Sheet for Healthcare Patients:https://www.The Echo System/Documents/Xpert%20Xpress%20SARS%20CoV-2/Fact%20Sheets/302-3801%20SARS-COV -2%20PATIENT%20FACT%20SHEET.pdfPerforming Laboratory:[facility] [place] [address]Agyqfs [id number] 10:48:00 Test Item Value Reference Range Interpretation Comments Case Report (test code Surgical Pathology = 104) Report Case: [id number] Authorizing Provider: David Alfred, Collected: 01/17/2020 05:03 PM Ordering Location: [address] Received: 01/18/2020 09:09 AM Service Pathologist: Wayne Mcadams MD Specimen: Biopsy, Gastric, Random gastric bx ADDENDUM (test code = s4shsDSuMHEreTOuVrPsYE 3381) GePKObh6guGBUewDXcEgAx MzNcZnRuYmpcdWMxXGRlZm Hzi5xzg782fNTow0cjKXZe AdM4lHBgVHRqgYAjM223q2 eyf1xfrrGphQO1KUJePYO2 YWkhbpGxglK4ANxmvFWzFz Y6IHvjfqLuJWwfpmMnssSn Xsz9TWYzS917DHE6vSyhe6 vsNIY7VLBgSMEjQmEkQs6s lVErF928RGEyBCINKWHwpN w7UYGupjYhfjUflQNVo342 D805e5xaUVWrsdPpoWnScu gqh3zzZ954CIDtuLYentKp LzNyKRJkqRLjmGC4IJQiRD 8oodpgSYjgQCquVHLiqpX4 YHTtoQKjZ3QsJOXpTB1efr bxONP1EZgvRHHcEZS9EzVn ZKXjg6Rotmh3OmYoca9wby 11BAJ2d4NcuUmaDGG5QWF4 IaIvDp7vqFOjONHqCV9aTh PslPBzWPOujz37vDylYVxv siCcdJ1nTsFhSWWmoTTsLP XeDZ9pdGAdTLNflD6eqijy XHBnYnJkcmhlYWRccGdicm LjQw5dmWxjNXA9ISurG1aw cI5uIqH5TMnoJ1igvQ2bSS v2OXamzWE8CEAygR4uMR6e btcyw5ppUDsoVVvlBXYmqb Y1thZ8QAYojLCeF6IjvI6o BSNsAX8cotdwa8qlFRI7OP euCOCbCTE0UsEiKLXjq9Xg gmn2DkWrq7EjzXJpQGcyU8 0rz602VUYsoqYiN7egeFGm ybzbvMZmtpuyXCazdsV7KH FsXHBsYWluXGYwXGZzMjBc bGFuZzEwMzNcaGljaFxmMF alBgLzIPLkBTpiS9htKwJp CzCkASPPwN40ye7hrMFipx Qdv5VsjOQfsFMaDnVesEDx ZCVelaKfeb8qITCoqgKwdH 4kdeSNGLKrnaZIE1OUJPzK CF5lmNZupU== DIAGNOSIS (test code = k7qonJAuGKHjv8gpMOWtoK 3220) FuZzEwMzNcZnRuYmpcdWMx DUxaotBmTXcyw4GsA3NdUk AwMFxhbnNpXGRlZmxhbmcx TBWyIYF6emZsFEQbLZjdZD NtPBvtOz9gjKNpxWvgXmEg VBEfp5ephhOYtjqvoZj6u9 bdKBWuNlZ9vTJnXMmwT6ab szXkoBFjEEDwECp6lN27DW ObgA3zxAOhYEvojhIiYwO0 UVjdTAQaTsC6IREnaXBfAW ZpN2vrRAIjJCsbLQOmPXtb fSHoZUW2vYbxj7V8sZXjcT VciSfmAbZyJiDzFIVUd4Ce JAy6xCqcA4AxTRTjXsZ4nH QgUGFyYWdyYXBoIEZvbnQ7 rU49ANxqnwN7yFOwd3Eem6 0ni330vD3gnDQxBAP2GVXm EHCxgLQrILQyHCO2PNOtcZ FeH8r1IwEalXEsH1J3PrSn sRSbG2R1AaBwiERaF0C1Xx QosFIwBCAihVByVp0tiDEd dOLzxs3kri48KOX7h7AfzL yvBTS4AXQ9XwBdFv7jcKXq CGMsHL4aNaVkxPUhIPNxvm 03tGciFSjuwaVurO8yWbAp JKBpaOAqIHMsHU2ecQBkKH IdbT2gzbycHPZkAbZyjwrt TXIkhYocigEdVl7tmKydCG D9LTedA7uzeW0qVqD6FLmh S9fnaA2jXDw8MGbgzEK9KS IzdG8rOH2rhyehm5waMjBs OL9knuldr4koMjGnJZ3jxx u7c8sqHoGwLF8ntlkyd9sc NzIwXGhlYWRlcnkwXGZvb3 HlckmtCCXlr0DjC5KapEba Z94xwWeoM53gCUAtoAdfrH 7nsKuwxA5qIgDfVnNkBLya bFxwbGFpblxmMVxmczIwXG lirwbqLMGhMNnpK3buWvCj WNSgaCsyPWvoj3WxMCOuZR ZzMjAgUEFSVCBBIFJBTkRP DMTPBCIKGduABVJJI4XSMT pccGFyIEFOVFJBTCBBTkQg W8aKCbSIHvGDVKWRT7HuF5 nGZFBEJ3RVVaFaM5nGN89H QyBHQVNUUklUSVMuXHBhci TLLPaRBUuTLFGDR8MhUV6Q LWYWMY0ZEBDKHNNSPXuIY8 iMUCBPBELKRJNFFUOoSI4E IElOVkFTSVZFIENBUkNJTk 0FPC6ngIVkSMaCJaJKXJ2i U1KJDwUOMCSCYZyEMUCZFh HXFOlJN19KDGHPMXExANZk TkVHQVRJVkUuXHBhciBJTU 3WWj6UHCASMwJTE7XaVJSC SUNPQkFDVEVSIElTIFBFTk RJTkcsIEFEREVORFVNIFJF EL5FOSHDBlHOV9dSA9enDB Gvuu74ZNZ0YhZmb3S5TNL8 DRQqGUUor0ckSGCrwIOjIy EwMzNcZnRuYmpcdWMxXGRl FoSbp3olk483wTHdy0lgHL GwGeM3sBAjGTUnrUUfA898 SUQpAAijh9ybx5YfNQZsyR Gia4Z7TQCIsbtpbRp9lFic N65sp9D5HnwnB4gjQALcPQ RyT3HcRU3yNGFuSho1JHE5 UVI8LAVuSZCqF3QjRT6dCO IquEIsADf2h3hmzChiOZWz QFE9i7wuXVsmtlReWD3kzr 7miCf7k9wesuWnTQYbAAOw jVBDWQBnC5VihQrnNk3rwP q4dAkoAdfiXJZ5Tsq0RI9n cw35acn8pQbpFPImdkuxLj R6OWteSADpetqmWHi3CWjg UMDhkXF1PCVhwTTpW2DkCX SiMD1qcyc5NSZ7BJfyDWCx HtI8YVOlcIZcEKOwtDglDY gqt791QTS8LqMyBR0pK3Su o1T8gO3egDEiMLBopUZeOy FkTBSzra2tvKTpMFkkv5Rh MRX7lrL0iBAclRYnADNsRd R1YNxeON3zve33IFErWUT1 sc1bxRWxgLefrbHrgBFjOF alF7LiIMEfy687WLZxX4Tx QBAfk4M5yzStCgVmNQElkA E1tiO5KIRqLR2kxcbff7us DDgwIUdsCLPpdnH3vgB0VI BwaCXbB4QorB2eYHWeND2c mtijt6vjNAK6QIclPLKrRB A6AuGiJKOfq8Occtx4BoEq k9EjiGXnBBcyM30tn807LS AnwcXxA0phaVEpzvzruBGg hwquQCqngqJ6XEAiTZnrus kxFOPkFQsiL5kdHuDsFQOs dDxaDZmew9TlXOCbYYTtKb AkbXNfIEMsHav1BNFwpJEu MBCfMwJuD6buzuxwMoQBVJ Bhj7jyU7rmvYBLjISyT0It UGhvbmUgTGluZTogODMyLT C4LX48HEehKFTmrf53 CPT Code(s) (test code j3qavKSoYHOrcLRcTrHiJP = 3357) SnQJYiw5hrSHOqwSMfKtKb MzNcZnRuYmpcdWMxXGRlZm Snv0suu854kEKnx0nvKTRn QeV2xSMoKZMyrZAfZ059c9 fxf7acegVucBN5LZRhVVI9 FYhrenAjbnI7TYkynOMeJm C2KHsazpVyYQtlttXjhkKq Tqu9WWDxO757BRV2pFrre0 mnHDK3IEMbEVOcNuGlCf8o eNUoC312CNMxQRUVRLRgaA c9YYBlchQpumObqIZFk044 L473a2wbHNRalmQbzCpUwj uzn5tsK132YFJirQBtxbYz CrHtTOIgzHPbuTN5FDBrUA 3smyffPuFhSE3psfbbUdMi LB8vphs2KmMgRA5ikpqvTu NnMBaiZFQamjpiDORke0Kr kgosKL5hU7Vld2H9hX0mlA MzCKEbvAKjDiFoQEFoar1c nJZxRClue5FyTTA1taA1qI SumLZqDHPaOH42Ogxbe4Xn OlobBFE7NATmblNfv7Inx9 arCnUmkfMrU9xpL5InOOVo SQMgJTCsAwXnibHyj4Yds8 VjwRCyzXf5m0cmNTJvJDGs tBerp1lhGJB6YAFjB9S4iR Ivh3bmUZbvTMDjlDT8ndfj PDmrOWAgidI0ybocJItsUT DicTC9iaqwDLhjGDJpCgG0 aulsINozYVBrOPL0DEkjx0 06XOO3ERnsVxzoPQipZZGc bmNvbnRccGduZGVjXHBsYW luXHBsYWluXGYwXGZzMjRc bKxoeGyfyO4bYyXyVwNbZO duKH9oKAOzZ9cymYGeFKAi AEVzO9atWcWfnO5adQfeHQ hpwlOmODv1YwX9APX1BIXm MiwgODgzNDJccGFyfQ== CLINICAL HISTORY (test a2cuqZPoDJDznFTzByQnDK code = 3356) LoRQAai4udVRJlsZLqMfYy MzNcZnRuYmpcdWMxXGRlZm Upz6syj305aHUtj5frZKHh XwK1hCShBROodPMjW372UE NtNItrr7twp0NrYXGqzJCq o4P1NKWHrdideVs6oPtxI5 5ll7C8CxscD8csFGZgRUWg Q6PdCR3eCNPhAna0KUI1KO T1EDAnDBEbB8DhXG6dVYPy jJFeZTh3s8mhxRldFUUvKV L8f7bkBEcwfzPhLA4vux3d jGu8g6vejkSeGFQtBZPntI XWSDFhI0WujWzhAk6fmNq5 iMuoKpazSQG8Dkj0NA8qwx 87urt6aNefTFOlrahvEqK8 QEpuKGSduwszPVt2QNniXQ JnbDcyMFxtYXJncjcyMFxt YXJndDcyMFxtYXJnYjcyMF otSLWxXRZ5KZpgk641SOH8 RYxwr2zdj5ckrPIaPam0GY FcWkVkQdloDPfoy9Stf6yr ADBkrk2sUMO0cTZlyHror9 Z7uRZqPWWjcNNqntCvOZYx QnN8ROugJG8fpa24WHJvNR N3ee3qcCPzvWvuuoHgrSTw VQrsG4YkFPNzg895MARvZ1 HsJBAmg3C9ztGvWxXgNKMi xHG3drN8ORRpIIj8sBLdzr B2xmUqwGNcD4gjvV80TtCy jZLvQ6VzdY88QkHhrFIrA6 EswS98BySrxRRzB8WjkC73 XqGquEShJYMuhGPdXf7whV EdiJFfh9SyvJKhCFtgR32q q875SDHsqpGqV4onbCPpvi iirJKxnevaLCcpvyE3FUh6 cnBhclxxbFxwbGFpblxmMV xmczIwXGxhbmcxMDMzXGhp W4klSfOtCIZioMiiHWgwb7 UqQZWrULJdZhBbK5alPjaS RURccGFyfQ== SPECIMEN SOURCE (test u4xeeXOjOKGfaMTrIhQyFN code = 3377) BoOUSzf7tfUKLjwHBkScFi MzNcZnRuYmpcdWMxXGRlZm Znl5dgn648vGDjk6zdSRBd VkA0wQRyHOGbdAQrS455x7 ugm0neniCsuXN4DAFxOWQ0 DWwdgwNdnhZ7SFvohLHoAr T1MJmomyKnKImnboJkiyDd Qqf1ABQgW348JHE8nQbze3 wkQGS2NHHaDAEhWyZeXy4t dBAqQ679BRAbZGWISQYqeX t3XKGdbjFplpFppJKJz003 I492x1ibWEZlfySprOrLxk dkl5paE726BXXzhRVzueAp CzCuAQMhmLCpiXC1GAOmFF 1axcrkGgVeCE4piwijNwJc WR8wfjo1GeVoKB5pfgzsZg FwZBiiIXXrcijlKOZfq3Pf ivgdOZ6eT2Fub3E3rN1rnC XxONRulXJjSnKkGDNdfc5n qJEhKPhtk1KiAFL1vmL4iT HqqKAePCLrSB15Davqp9Tt DdceIIG3ACXoqcZzq0Dxy2 joYvHsypBbR7tkT5BlFPFw WTGtAIKrXdSezyKgz9Iyc5 NlxRVavPd5t2dsPIPzNKSi gZzae9ltEUO0FIMcX0O4bN Lzm8ddACnwWNDahGQ6lcth UTdbOLRyvtE7hpqeZOdxUY CtnVK0dyfcNOctZPZeTmO7 boqkTBwoRVEqWRN3WZvjm2 72GTU5JCrpBsgsBLxpEXYd bmNvbnRccGduZGVjXHBsYW luXHBsYWluXGYwXGZzMjRc fLwfbOwluT5vCeMdSkRsCN ahRZ4xUHFwH1yqvWDbPPZm JGIuL6uyJzEzmK6gvJpeBO dlbbCfMJkqv3TtgFMpHnky vCI2TSZyto8= GROSS DESCRIPTION (test j4priURaXJWbzLKyClDgYY code = 3366) SnUOQdl6fkNEFwxSYbSeHf MzNcZnRuYmpcdWMxXGRlZm Yoz8uzn114yTGmg9csSTQd BgD2cBPcWBNfbFVcU654z7 zyv3vnbiSegPH0GKTdXOM6 WXwmyfMfxdL6ZBoliRSjHb Q6HZaijbOoKWtpqgJvudIk Wzj2JZNkM014KLB1qPkua6 gcERR2ABZiVPHjZbSyKh3z pSCmL232WTZeCRSMURGbsI w7SFBdasBcmoIlrOBXs440 U588s8hlQQLsjhAhiWxHce frg1alT851WBAybPKujgLn OdXhIGMwoAQuuGS2DSMyHF 3qstkpIoDbZS7pvqseVqPx TD3hidw1CrIvYU4dniidGk VjTCjwSLImbrtgEZJpk6Nz jesiYX8fR5Twp9R4zR6byC HkGYFhxYHrZjEeNRRzxc2k uDQqBUqjs3TdNDM2phB6dR MwwEBnBKPuDM31Demtw7Om IyyqPJM5LVOiklLxc5Acy2 rrGrDrizXiV4sgN3FaYZFn QKEkJQRzBiKyoiDao3Wbi1 AejEAgvQr8r0njOEDqWDXp kZfbs2qxHKS6JMUcE5D6qW Gls1mdQNyfZGXkfBS5hxzj PCulAHPhnmM1phzcRZlfJU MwiYI9aldfCYnuOOImLgL1 chvwZUolRRYzBVL0AOzzy9 73COK5KLrhVpaxEKwbWHPe bmNvbnRccGduZGVjXHBsYW luXHBsYWluXGYwXGZzMjRc jJtlvChjuS6lUsLsKdUzXA itOA6pBUJbW4aupCEzBKMh JIXdQ9ynJgIloP3hgSquJV xxsrAuIULzN6LwrlMcNWor HILxpf5bxUdcUOtgJwZgOP Vpu0d3dGK9cDIfaRO5wHWn hYwcHG4wuRDxZRUsT3Lgn9 ibjmOgnW7hUELfEI3iAUQp BGT1xhkzODQll8AdiAFnHG JlIDMgdGFuLXBpbmsgdGlz u4HbFJPmEYgrVW68bsLrPI QwvEBqqqjqwNTdkD9rHK8r DRYqRMghWPqkSOP3VXL4US OqyECnu3fkjbE4fBscwYFj vzEpSzsgjTYqWFHyCW4lQF W5Ez9keMQwESCkycB6e6Hx IGluIEExLlxwYXJccGFyIF GvrDEuCZCiC7YflJpobwqb GPGjKPOVJ9HlG04jsYVkfZ == MICROSCOPIC DESCRIPTION t6tsmUQjNMAxvBOlEsScTL (test code = 3371) KvMTTie0jfOXBkfADnQsVx MzNcZnRuYmpcdWMxXGRlZm Htr8jyp692vFTgk3mlZPBs LoH9tDCaWFZlwCBwV646c8 ohy3kamaUrbZM2PAExNXH5 HXfoylClhqB1ASzpuJFkKl G3AHscljDxZQstidLohhCk Fpo4KGXfX472UQV8aXuva8 cgKNP0MMMmHPZsQlFlRt1s wMRmL047EHJgWWJZROWqaB r3DLSvaxEhgeDkuCOLx453 S126q1ogFLNlvnByoMjQrw sil0neA347IRRqjJDzvhRv QuNxPWBcdAOyfUC6KDNoZB 5jaknoKvGnBF7ddnftGoYm OL4capl5DyKeWM5ykioeOb SjLJgqOMLhonhpZLPbm1Mr rghmTS2eR1Ibk8Y9yR7swG IiCWJzaQKrWiGxPWQnhz1h cEDfGFkpm2CgPDD8rvY9pV RslMEmJCBjYX43Bhqgo4Ve GhhmQCO0LAXcbvNix8Cvd7 ooCxAhqyNaJ9geK6YpVAGx YFVyKLEkInDqreOwh5Yay3 YagZTbjSn0d9tuGSLpFSDx wEvvt6bmUIR7PYQpN0C1jO Mfs6yoIWraTLJqeJK0orgl AMltIPDcijH3prvqRSgoZP DhcNB5wtjkWYzkZJRyMvN5 nqonQAjrRXVnBXO5VCckn5 08EWN9JFzkXtlyANkdNIMq bmNvbnRccGduZGVjXHBsYW luXHBsYWluXGYwXGZzMjRc kMmugCkacM0jUiSyKfHyHH buAX1mKZLhI9kukQCoKCBv TNDuJ2hmUkIifO5nuFdnXH qkzkPvPHCFHfCMKb8WUA9q cGFyfQ== SPECIAL STUDIES (test m5pusFOvNCRuuATyCiGdPO code = 3376) QaTIEtm9gnUZDwnNDkUpSq MzNcZnRuYmpcdWMxXGRlZm Skl8ghy971tBDjz3bhCYGk EqO5nTJyUVJbcAMnJ602IH WnLHkfn6gsg5YmUKJzuWKv i2B5JIVZJRqfJrEyJ268UN UkXTugs0tkh9BkJRNvsAPg a1A1OIKIwhdggFr6zRlzQ9 8sw5N3DfpeJ8xxBZVqUSSo X6TfNA9mFPZnOhz0LNY4QF G7CIBvTLLnY0CoWR3tSXGi tNUlBPo2p1okvEfrJJKwSZ X0e1ckAIligkP2TB9bne1l iBe9r2tlxyRfEHHfBNRnyS VQUWLrB2BijKfmFz3pmJj8 x1uuUxaqjvN5jUXrRzClDc MyMFxsaTBccmkwIENvUGF0 gYYWRTe8Z102n2htCZSgky ViqRfRfilxp7jzN369BKHb cGVydzEyMjQwXHBhcGVyaD F8CRGgUD2szkjoZzKrUS6w noswUnWpIF7hjlq8HcBdVC 1hcmdiNzIwXGhlYWRlcnkw XBJip4GjijcjLY6eL7Ics2 F5tR1dyNZnKFOgxCMxPhOw PWCaki7gtIBsKCehLTI6DX LfqkCgk5Nnp9zkCzTzrvLj Y2fjK3GmMAHhUEVuXKSjHj LfnsFka0Lqg0GcnAKwlSh3 h6ouWNRgOXDwuSeas6jzXH F8LEKdG1J5eXKmr6zdWOua HGUivFV3ojkfZBlcFZGykk E3iqtqBTifCROqcRW6cvvc KJdsTUHcNwI8wgedQUnaUO RlRVJ6NCmmv527NSV9OVkc YmtwYWdlXHBnbmNvbnRccG duZGVjXHBsYWluXHBsYWlu XGYwXGZzMjRccWxccGxhaW 5oOmTsSuHlDsydGL5iJHTp O8aqcUVmJIFoUIBgM6jrJj JmpI7toVguTAxjLvKcLmFp FvTFnYWryG24TFVwnmI6WR Wez87hn8YqvHetxdFkJPUs URahS8e2DGTtLEHtUHL8e7 Fan3GqdE0kuX9agTsqzR1d rUDrbZQ1fjwlq8Qdz1RqZ6 lhbCBzdGFpbnMuXHBsYWlu XGYxXGZzMjJcbGFuZzEwMz NcaGljaFxmMVxkYmNoXGYx MQjrS0yqMrRbM9AjCXTsMi WznPAkF6lkeDRkABYoMZju XGYxXGZzMjJcbGFuZzEwMz NcaGljaFxmMVxkYmNoXGYx AMfzD4kjSiFyH4SyVIAlUt JvFvhPA9xhYHCyXJiDKcUI WF4oJ7BJQjXAHVIVPKuMW4 1PGWRTLXTaLI2BUC3BH1ZS TG0oUTRyYKoaPOOkSODpBq JcbGFuZzEwMzNcaGljaFxm UMmbElHqKRNiJCxoQ7ifSp VuU6DcJUTjAaObbBNyO2lp cGFyXHBsYWluXGYxXGZzMj JcbGFuZzEwMzNcaGljaFxm KIwcBsWfSZGuBSavM5cvQb ThA2UbLYVaGwRoU43pwFMy bCBTbGlkZXMgRXhhbWluZW C0JJGZmr9gr0KwWFUvii97 khLmy8AagFl7QRQga804mp 4knvO9TBLdBLT7YRo2OMQs PJGxcF2sJjG9gHAuZAFhKJ Z7PTK5OWHac3K2QW1kWRJz WUZhSRJljsIiz7oze5bxXE HvUJE7siJolJ3qD7IvPNHy r8UdxMhjCVQhgMhomkNhBU VwxKKpWASlzP75HQFcpNUs uUUdKXUgTMA0ZToilK6qAf LHyiCrrg0wuJEuk7WsqFj3 ZSBhbmQgbmVnYXRpdmUgY2 3buDQgyEJkj1pjcmHmvsCd oAThiLXnXMAdAJI6WKn7KZ RlZFxwbGFpblxmMVxmczIy TZetxgklNLZnEMpaX8xtUb AbTKAohYmcKUmof9JwFLPh TALcCybhpcVdSDe6dnFcJK BhclxwbGFpblxmMVxmczIy GKyytbndTXHoHZsmW4viPl YkLCIssPwpPSbnm1PhYVGx XGNmMlxmczIyICBccGxhaW 5hHvYwHjSsTojfYY8xXJVu E0vwjXTyFQOdZIRqD7vfWj BwvE6fwXduASbsEzGqNbPr MlxsdHJjaFxwYXJccGxhaW 3hXlFpIuWfLqabUZ0yKDUg R9jnyVRwTBByETEmS6ljVr NfaY1gxRhpGRpgOrCzSbAx RkCKwI79kl4pcIQ8a1NbFQ 9tm6DwtLQ8BQPjivruEYcc gDGjdSpfLkR3YNJwxFTjId 4wxJKaCGV4LDTrgKdhpeVP rC4oBZVvARgaiCJxbssnMN xmczIyXGxhbmcxMDMzXGhp J4fpYxTyGYArqNtnAFelz9 NoXGYxXGNmMlxmczIyXHU4 MhX0UAftUJLalVzwkM8gEj QzKdCwRyavIJ0yACYeX5hi lWHjKUQnHYUbN2pjTsDiiJ 9jaFxmMVxjZjJcZnMyMiBz ZB5wDOryVAlqI9FljFEoOO ZKUDUaq0zpQ6axTXWnl6Jc hZ7uhPG8mEIhGCCklEF9VH EkKIP3BQzazCZuIPQfYPFm kSMyxYPgKe3fuMBmB0ShK9 kcnyViyBZnnSA2nZCwSQsf ejDsDUI4RMHabP4iIY2lDY IdzYZdDR0mhLOpAWLdNYTf TUAuBLBfl1BoPYMefn47BA EaWupguYerYCLnUa9rDl2d MTPzqvPuRGD8QlDKQA6mlv tryYHotNszdj2xVPrqIYSJ FRNaICHlANI0DHOjgR1rPO Y4xUR7YQG2Z0csV3fnJJWs asPlID8lBVIpoNSmjyAaQV yxNA4jwSXnCGNar2Laxque CYVuWFJ7LMQ7FShuJDMzUL JgOn7sUWIndT7eQ1OfINI3 hcDkk2RsSlZQtTKvvG66jI Netn28RMMhKGXoB9QeUEDa IGFzIGludmVzdGlnYXRpb2 6ngHTovkGul2KvpuKaPNRj I0mhMDQjeKIgeAQtj8DotV 8geDUzyuFjVVK4sWNaOFCn kE8nLHUtaXwpYZGcuH4lN1 QhRNyyKr9mKIXggvvuUJ4f sz80ZX3piwZiWT7ormLsGI 34tkSnTvVoDKm8PDaLOYlJ TDu2GCJhnpMenUPaoTMmUF NmsB6qiTVvBy7geWCsqCaw GIUcyMSiDKpwoXusN0fqox urUIdzvWGlz6PprG5znBH6 LQX5gC9aZsiutMRexwyhBl xmczIyXGxhbmcxMDMzXGhp N3rtTgBeOCKqtAcyZelpf3 NoXGYyXGZzMjJccGFyXHBh goUkePglvP5oAmOuIkJiRU jbqYJmvexwFgyrsfW2RRUm cn0= Gross assessment was [facility] performed at ([facility]ly [facility], = 2777) Department of Pathology, [address] [place] [address], Technical component was [facility] performed at ([facility], = 2778) Department of Pathology, [address] [place] [address], Professional component [facility] was performed at ([facility], code = 2779) Department of Pathology, [address] [place] [address], [facility] CaliforniaTISSUE [id number] 10:48:00Surgical Pathology Report Case: [id number] Authorizing Provider: David Alfred, Collected: 01/17/2020 05:03 PM OrderingLocation: [address] Received: 01/18/2020 09:09 AM Service Pathologist: [...] REPORT TO FOLLOW.Signing Pathologist Direct Phone Line: [phone] signed by Wayne Mcadams MD on 01/18/2020 at 4:47 [id number], [id number] BLEEDGastric biopsyReceived in formalin labeled withthe patient's name, accession number and "gastric biopsy" are 3 fam-pink tissue fragments measuring up to 0.3 cm in greatest dimension which are filtered and submitted in toto in A1.MARYLIN Augustin ([facility])cmPERFORMED.The interpretation of this case included the use of immunohistochemistry or special stains.BLOCK A1- WARTHIWesley STARRYAN, HELICOBACTER IMMUNOSTAIN.Control Slides Examined: In-house known positive controls were evaluated along with the test tissue. These control slides run alongside of the patients sample show appropriate staining. Internal positive and negative controls when available are evaluated Immunohistochemistry technical testing was performed at [facility], Pathology Laboratory where it was developed [...] qualified to perform high complexity clinical laboratory testing.[facility], Department of Pathology, [address] [place] [address], [facility], [address] [place] [address], [facility]aug[facility], Department of Pathology, [address] [place] [address], Krjohw doppler arm, right 2020-01-19 11:48:48Ejection FractionSLEH ECHO [...] Date of Study 01/18/2020 Age 74 VisitNumber [id number] Gender Male Accession Number [id number] Date of 1945 Referring Thao Baker Room Number 1023 Physician Zuri Dining Room Host/Hostess Wyatt Gonzalez Interpreting Meenakshi Hill Pineda Physician [...] in cm/s ; Diameters are measured in [facility] Basic Metabolic [id number] 04:55:00 Test Item Value Reference Range Interpretation [...] (test code = 7.7 mg/dL 8.4-10.2 L 42381-3) EGFR (test code = 118 mL/min/1.73 [place] [address]-4) NOT ACCURATE CREATININE CLEARANCE IN PREDICTING GLOMERULAR FILTRATION RATE . ESTIMATED GFR I S NOT APPLICABLE FOR DIALYSIS PATIENTS. BEAR (test code = BEAR) Medical Assistant Float ID - AYAZ W Lab Interpretation Abnormal (test code = 45943-9) [facility] CaliforniaMagnesium2020-06-16 04:55:00 Test Item Value Reference Range Interpretation Comments Magnesium (test code = 2.2 mg/dL 1.6-2.6 47822-6) BEAR (test code = BEAR) Medical Assistant Float ID Jose JACOME W Lab Interpretation (test Normal code = 59673-1) [facility] CaliforniaMAGNESIUM2020-06-16 04:55:00 Test Item Value Reference Range Interpretation Comments MAGNESIUM (BEAKER) (test code = 2.2 mg/dL 1.6-2.6 627) Medical Assistant Float ID Jose JACOME WBASIC METABOLIC [id number] 04:55:00 Test Item Value Reference Range Interpretation [...] S NOT APPLICABLE FOR DIALYSIS PATIEN TS. Medical Assistant Float ID Jose JACOME WCBC with platelet count + automated [id number] 04:31:00 Test Item Value Reference Range Interpretation [...] 450 K/CU MM MPV (test code = 00059-0) 11.9 fL 9.4-12.4 nRBC (test code = [...] 2801) Lab Interpretation (test code = Abnormal 89226-1) [facility] W/PLT COUNT & AUTO [id number] 04:31:00 Test Item Value Reference Range Interpretation [...] PERCENT (BEAKER) (test code = 2801) Prothrombin time/[id number] 04:30:00 Test Item Value Reference Range Interpretation [...] valves. Lab Interpretation Abnormal (test code = 79762-5) [facility] CaliforniaPROTHROMBIN TIME/[id number] 04:30:00 Test Item Value Reference Range Interpretation [...] for patients wiht mechanical heart valves.Prepare Leuko-Red [id number] 23:54:00 Test Item Value Reference Range Interpretation Comments CROSSMATCH (test code = 2264) COMPATIBLE Unit ABO (test code = B Pos 1499449) UNIT NUMBER (test code = [id number] 934-0) Status (test code = 0896547) TX_TIMEINCHART Blood Bank Product (test code RED BLOOD CELLS = 2263) PRODUCT CODE (test code = R2255C87 933-2) [facility] CaliforniaECG 12 [id number] 10:52:57Interface, External Ris In - 01/18/2020 10:53 AM CDTVentricular Rate 84 BPMAtrial Rate 84 BPMP-R Interval 228 msQRS Duration 86 msQ-T Interval 414 msQTC Calculation(Bazett) 489 msP [place] 89 degreesR [place] 40 degreesT [place] 35 degreesSinus rhythm with 1st degree A-V blockNonspecific ST abnormalityProlonged QTAbnormal ECGNo previous ECGs availableConfirmed by MD HARRIETT, ROULA ([id number]) on 01/18/2020 10:52:55 AM [facility] CaliforniaMAGNESIUM2020-06-15 05:53:00 Test Item Value Reference Range Interpretation Comments MAGNESIUM (BEAKER) (test code = 2.4 mg/dL 1.6-2.6 627) Medical Assistant Float ID - PIAYA LBASIC METABOLIC [id number] 05:53:00 Test Item Value Reference Range Interpretation [...] S NOT APPLICABLE FOR DIALYSIS PATIEN TS. Medical Assistant Float ID - PIAYA LPROTHROMBIN TIME/[id number] 05:26:00 Test Item Value Reference Range Interpretation [...] mechanical heart valves.CBC W/PLT COUNT & AUTO [id number] 05:15:00 Test Item Value Reference Range Interpretation [...] = 2801) CBC W/PLT COUNT & AUTO [id number] 12:38:00 Test Item Value Reference Range Interpretation [...] (BEAKER) (test code = 2801) Hemoglobin and scprhfdpxb0041-17-18 05:57:00 Test Item Value Reference Range Interpretation Comments Hemoglobin (test code = 6.2 13.7- 17.5 GM/DL L 786-4) Hematocrit (test code = 19.3 % 40.1-51 L 4544-3) BEAR (test code = BEAR) Medical Assistant Float ID - 6000 Lab Interpretation (test Abnormal code = 15275-2) [facility] CaliforniaHEMOGLOBIN AND [id number] 05:57:00 Test Item Value Reference Range Interpretation Comments HEMOGLOBIN (BEAKER) (test code = 6.2 GM/DL 13.7-17.5 L 410) HEMATOCRIT (BEAKER) (test code = 19.3 % 40.1-51.0 L 411) Medical Assistant Float ID - 6000Vitamin B12 and Qivfgr0834-37-68 05:35:00 Test Item Value Reference Range Interpretation Comments Vitamin B12 (test code = >2000 213-816 H 2132-9) Folate (test code = 14.20 ng/mL >=7.00 2284-8) BEAR (test code = BEAR) Medical Assistant Float ID - PIAYA L Lab Interpretation (test Abnormal code = 13655-4) [facility] CaliforniaVITAMIN B12 AND [id number] 05:35:00 Test Item Value Reference Range Interpretation Comments VITAMIN B12 (BEAKER) (test code = > pg/mL 213-816 H 774) FOLATE (BEAKER) (test code = 362) 14.20 ng/mL >=7.00 Medical Assistant Float ID - MARVA [id number] 05:27:00 Test Item Value Reference Range Interpretation Comments Ferritin (test code = 947.60 ng/mL 5-275 H 2276-4) BEAR (test code = BEAR) Medical Assistant Float ID - PIAYA L Lab Interpretation (test Abnormal code = 15733-9) [facility] CaliforniaFERRITIN2020-06-14 05:27:00 Test Item Value Reference Range Interpretation Comments FERRITIN (BEAKER) (test code = 947.60 ng/mL 5.00-275.00 H 361) Medical Assistant Float ID - PETEYAYA LHEMOGLOBIN AND [id number] 03:47:00 Test Item Value Reference Range Interpretation Comments HEMOGLOBIN (BEAKER) (test code = 5.3 GM/DL 13.7-17.5 LL 410) HEMATOCRIT (BEAKER) (test code = 16.1 % 40.1-51.0 L 411) Medical Assistant Float ID - MarizaPROTHROMBIN TIME/[id number] 03:38:00 Test Item Value Reference Range Interpretation [...] INR is2.5-3.5 for patients wiht mechanical heart valves.Impgrapyjjt4462-27-63 02:11:00 Test Item Value Reference Range Interpretation Comments Haptoglobin (test code = 277 mg/dL 14-258 H 4542-7) BEAR (test code = BEAR) Medical Assistant Float ID - MARVA L Lab Interpretation (test Abnormal code = 35812-4) [facility] CaliforniaHAPTOGLOBIN2020-06-14 02:11:00 Test Item Value Reference Range Interpretation Comments HAPTOGLOBIN (BEAKER) (test code = 277 mg/dL 14-258 H 366) Medical Assistant Float ID - MARVA Kurt, TIBC, % sat. (without ferritin)2020-01-17 02:10:00 Test Item Value Reference Range Interpretation Comments Iron (test code = 2498-4) 38.0 ug/dL 40-160 L TIBC (test code = 2500-7) 151 ug/dL 250-450 L Iron % Saturation (test 25 % 20-55 code = 2502-3) BEAR (test code = BEAR) Medical Assistant Float ID - MARVA L Lab Interpretation (test Abnormal code = 92153-0) [facility] CaliforniaIRON, TIBC, % SAT. (WITHOUT FERRITIN)2020-01-17 02:10:00 Test Item Value Reference Range Interpretation Comments IRON (BEAKER) (test code = 547) 38.0 ug/dL 40.0-160.0 L TOTAL IRON BINDING CAPACITY 151 ug/dL 250-450 L (BEAKER) (test code = 769) IRON % SATURATION (2) (BEAKER) 25 % 20-55 (test code = 2590) Medical Assistant Float ELVIRA DURHAM KRISTEN, [id number] 02:00:00 Test Item Value Reference Range Interpretation Comments ABO Grouping (test code = 2588) B Rh Factor (test code = 2589) POS [facility] CaliforniaType and screen, [id number] 01:59:00 Test Item Value Reference Range Interpretation Comments ABO/RH AUTOMATED (BEAKER) (test B POSITIVE code = 2260) Ab Scrn (test code = 890-4) NEGATIVE [facility] CaliforniaHepatic function [id number] 01:50:00 Test Item Value Reference Range Interpretation Comments Protein, Total (test code 5.8 6.0- 8.3 gm/dL L = 2885-2) Albumin (test code = 2.7 g/dL 3.5-5 L 11127-5) Total Bilirubin (test code 0.6 mg/dL 0.2-1.2 = 1975-2) Bilirubin, Direct (test 0.4 mg/dL 0.1-0.5 code = 1968-7) Alkaline Phosphatase (test 71 U/L 40-150 code = 6768-6) AST (test code = 1920-8) 40 U/L 5-34 H ALT (test code = 1742-6) 26 U/L 6-55 BEAR (test code = BEAR) Medical Assistant Float ELVIRA DURHAM L Lab Interpretation (test Abnormal code = 93235-4) [facility] CaliforniaLactate dehydrogenase (LDH)2020-01-17 01:50:00 Test Item Value Reference Range Interpretation Comments LDH (test code = 2532-0) 484 U/L 125-220 H BEAR (test code = BEAR) Medical Assistant Float ELVIRA DURHAM L Lab Interpretation (test Abnormal code = 14892-9) [facility] CaliforniaMAGNESIUM2020-06-14 01:50:00 Test Item Value Reference Range Interpretation Comments MAGNESIUM (BEAKER) (test code = 2.4 mg/dL 1.6-2.6 627) Medical Assistant Float ELVIRA DURHAM LBASIC METABOLIC [id number] 01:50:00 Test Item Value Reference Range Interpretation [...] S NOT APPLICABLE FOR DIALYSIS PATIEN TS. Medical Assistant Float ID - MARVA LHEPATIC FUNCTION [id number] 01:50:00 Test Item Value Reference Range Interpretation [...] (test code = 26 U/L 6-55 347) Medical Assistant Float ID - MARVA LLACTATE DEHYDROGENASE (LDH)2020-01-17 01:50:00 Test Item Value Reference Range Interpretation Comments LACTATE DEHYDROGENASE (BEAKER) (test 484 U/L 125-220 H code = 635) Medical Assistant Float ID - MARVA LSARS-COV2/RT-PCR ([facility] & REF LABS)2020-01-17 01:38:00 Test Item Value Reference Range Interpretation Comments SARS-COV2/RT-PCR (test Not Detected Not Detected, Negative code = 6271541) SARS-COV-2 PERFORMING LAB [facility] (test code = 1905014) Negative results do not preclude SARS-CoV-2 infection [...] of the Act.Fact Sheet for Healthcare Pro viders:https://www.Get Together/Documents/Xpert%20Xpress%20SARS%20CoV-2/Fact%20Sh eets/3023802%27NPPN-QBX-1%20HEALTHCARE%20PROVIDERS%20FACT%20SHEET.pdfFact Sheet for Healthcare Patients:https://www.[employer]/Documents/Xpert%20Xpress%20SARS%20CoV-2/Fact%20Sheets/3023801%20SARS-COV -2%20PATIENT%20FACT%20SHEET.pdfPerforming Laboratory:[facility], [place] [address]WM/[id number] 01:24:00 Test Item Value Reference Range Interpretation Comments Protime (test code = 16.5 11.9- 14.2 H 5902-2) seconds INR (test code = 1.4 <=5.9 6301-6) PTT (test code = 31.0 22.5- 36.0 26792-8) seconds BEAR (test code = BEAR) Effective 12/31/2018: PT Reference Range ChangeNew: 11.9-14.2 Previous: 11.7-14.7 RECOMMENDED COUMADIN/WARFARIN INR THERAPY RANGESSTANDARD DOSE: 2.0-3.0 Includes: PROPHYLAXIS for venous thrombosis, systemic embolization; TREATMENT for venous thrombosis and/or pulmonary embolus.HIGH RISK: Target INR is 2.5-3.5 for patients wiht mechanical heart valves. Lab Interpretation Abnormal (test code = 42131-5) [facility] CaliforniaPT/[id number] 01:24:00 Test Item Value Reference Range Interpretation [...] is2.5-3.5 for patients wiht mechanical heart valves.Reticulocyte [id number] 01:20:00 Test Item Value Reference Range Interpretation Comments % Retic (test code = 4.9 % 0.5-1.8 H 57546-9) BEAR (test code = BEAR) Medical Assistant Float ID - 6000 Lab Interpretation (test Abnormal code = 36367-5) [facility] CaliforniaCB W/PLT COUNT & AUTO [id number] 01:20:00 Test Item Value Reference Range Interpretation [...] PERCENT (BEAKER) (test code = 2801) RETICULOCYTE [id number] 01:20:00 Test Item Value Reference Range Interpretation Comments RETICULOCYTE COUNT PCT (BEAKER) (test 4.9 % 0.5-1.8 H code = 575) Medical Assistant Float ID - 6000
[2020-03-02] MEDS ORDERED: NA CHLORIDE 0.9% 250 ML ONE (12:09)
[2020-03-02 14:19] LABS: MPV 8.8 fL (7.6-11.3)
[2020-03-02 14:34] LABS: Platelet Estimate DECR
[2020-03-02 15:05] VITALS: BP 142/52; TEMP 98.1; O2SAT 98; BMI 29.5
== END 2020-03-02 14:15 | disposition home or self-care (01) ==
LOC: DS 10:39
PROVIDERS: ATTEND Internal Medicine Hematology & Oncology
DX: D69.59 Other secondary thrombocytopenia (principal); C83.30 Diffuse large B-cell lymphoma, unspecified site
CPT/HCPCS: 36415; 86900; 85049; 86901; 36430; P9035; J7050

== ENCOUNTER → 2020-03-04 | Day surgery (SDC) | payer OTHER ==
[~2020-03-04] MED LIST: DIPHENHYDRAMINE 50 MG/ML VIAL ONE; NA CHLORIDE 0.9% 1,000 ML ONE; NA CHLORIDE 0.9% 100 ML IV ONE; NA CHLORIDE 0.9% 250 ML ONE; NA CHLORIDE 0.9% 500 ML ONE; ONDANSETRON 4 MG/2 ML VIAL ONE; Pegfilgrastim-CBQV 6 MG/0.6 ML SYR SQ ONE; dexAMETHasone 4 MG/ML VIAL ONE
--- OUTSIDE RECORDS SUMMARY | 2020-03-04 10:58 | XMS REPORT | Continuity of Care Document ---
:1945 Author Organization [employer] Care Team Providers Name Role Phone [employer] Unavailable Un available Problems Problem Status Onset [...] Q12H, # 180 tab, 3 Refill(s), Pharmacy: [facility] amLODIPine 5 5 mg = 1 Active 03/05/20 Medica l mg oral tab, PO, 19 Group tablet BID, # 60 tab, 11 Refill(s), Pharmacy: [facility]08 amLODIPine 5 5 mg = 1 No Longer 08/25/19 Medi crow mg oral tab, PO, Active 19 Group tablet BID, # 60 tab, 11 Refill(s), Pharmacy: [facility]08 flecainide 100 mg = 1 Active 06/05/20 Medica l 100 mg oral tab, PO, 18 Group tablet Q12H, # 180 tab, 3 Refill(s), Pharmacy: [facility] 808 amLODIPine 5 5 mg = 1 Active 02/14/20 Medica l mg oral tab, PO, 18 Group tablet BID, # 30 tab, 11 Refill(s), Pharmacy: [facility]08 flecainide 50 50 mg = 1 Active 02/14/20 Medi crow mg oral tab, PO, 18 Group tablet Q12H, # 60 tab, 5 Refill(s), Pharmacy: [facility]08 Allergies, Adverse Reactions, [...] Number For Provider Date Date Visit Outpatient [id number] RANDEE 04/19 [facility] Outpatient [id number] ECHO VISIT 05/09 Act [facility] [place] Out[facility] [id number] [facility] [id number] [facility] [place] [facility] [id number] [facility]E [facility] [id number] RANDEE 07[facility]03 [facility] [id number] OTHER 07/03 Active [facility] VISIT Santino [facility] Outpatient [id number] Wesley 07/03 07/04 Cardiology [place] /2016 [facility] Outpatient [id number] Wesley 07/03 07/04 [facility] [id number] 08/16 08/18 Cardiology Medical /2017 [facility] Outpatient [id number] RANDEE 12/25 [facility] HIWOT Santino [facility] Outpatient [id number] Randee 12/25 12/26 Cardiology [place] /2017 [facility] Outpatient [id number] ECHO VISIT 02/13 [facility] [place] [facility] [id number] RANDEE 02/[facility] [place] [facility] Outpatient [id number] Wesley 02/13 02/14 [facility] [place] [facility] [id number] Wesley 02/13 02/14 Cardiology [place] /2017 [facility] Outpatient [id number] RANDEE 06/05 Active [facility]WOT /2018 [facility]patient [id number] Randee 06/05 06/06 Cardiology [place] /2017 [facility] Outpatient [id number] ECHO VISIT 09/05 Act [facility] Outpatient [id number] RANDEE 09/05 Active [facility]WOT /2019 [facility] Outpatient [id number] Wesley 09/05 09/06 MH Cardiology [place] /2018 [facility] Outpatient [id number] Randee 09/05 09/06 [facility] Cardiology [place] /2018 [facility] Outpatient [id number] Randee 03/05 Active [facility] [place] /2019 [place] [facility]patient [id number] Randee 03/05 03/06 Cardiology [place] /2018 [facility] Outpatient [id number] Randee 09/03 Active [facility] [place] /2020 [place] [facility]patient [id number] Randee 09/03 09/04 Cardiology Hiw[place] /2019 /2019 [facility] Outpatient [id number] Randee 03/03 Active [facility] /2020 [place] [...]
--- OUTSIDE RECORDS SUMMARY | 2020-03-04 10:58 | XMS REPORT | Clinical Summary ---
:1945 Author Organization [facility] Address [address] [place] [address] Care Team Providers Name Role Phone Unavailable [...] u lcer with hemorrhage MD Wong after 03/04/2019 Social History Tobacco Use Types Packs/Day Years [...] procedure are in the results section. after 03/04/2019 Results SARS-CoV2/RT-PCR ([facility]) (02/12/2020 11:50 AM CDT)Only the most recent of2 resultswithin the time period is included. SARS-COV2/RT-PCR Not Detected Not Detected, Negative [facility] SARS-COV-2 PERFORMING LAB [facility] Specimen Other Narrative Performed At Negative results do not preclude SARS-CoV-2 [facility] infection and should not be used [...] the Act. Fact Sheet for Healthcare Providers: https://www.Wealthfront/Documents/Xpert%20Xpre ss%20SARS%20CoV-2/Fact%20Sheets/302-0702%20SAR S-COV-2%20HEALTHCARE%20PROVIDERS%20FACT%20SHEE T.pdf Fact Sheet for Healthcare Patients: https://www.Wealthfront/Documents/Xpert%20Xpre ss%20SARS%20CoV-2/Fact%20Sheets/302-8655%20SAR S-COV-2%20PATIENT%20FACT%20SHEET.pdf Performing Laboratory: [facility] [address] [place] [address]. [place] [address] Performing Organization Address City/State/Zipcode Phone Number [address] [address] CENTER EKG-SCANNED (01/20/2020 1:53 PM [...] included. WBC 5.6 3.5 - 10.5 K/L [facility] RBC 2.50 (L) 4.63 - 6.08 M/L [facility] Hemoglobin 7.4 (L) 13.7 - 17.5 GM/DL [facility] Hematocrit 23.1 (L) 40.1 - 51.0 % [facility] MCV 92.4 (H) 79.0 - 92.2 fL [facility] MCH 29.6 25.7 - 32.2 pg [facility] MCHC 32.0 (L) 32.3 - 36.5 GM/DL [facility] RDW 16.9 (H) 11.6 - 14.4 % [facility] Platelets 156 150 - 450 K/CU MM [facility] MPV 11.9 9.4 - 12.4 fL [facility] nRBC 0 0 - 0 /100 WBC [facility] % Neutros 73 % [facility] % Lymphs 13 % [facility] % Monos 9 % [facility] % Eos 2 % [facility] % Baso 0 % [facility] # Neutros 4.11 1.78 - 5.38 K/L [facility] # Lymphs 0.74 (L) 1.32 - 3.57 K/L [facility] # Monos 0.53 0.30 - 0.82 K/L [facility] # Eos 0.12 0.04 - 0.54 K/L [facility] # Baso 0.02 0.01 - 0.08 K/L [facility] Immature Granulocytes-Relative 2 (H) 0 - 1 % C [facility] Specimen Blood Performing Organization Address City/State/Zipcode Phone Number [facility] [address] [place] [address] CENTER Prothrombin time/INR (01/19/2020 3:55 AM CDT)Only the most recent of3 results within the time period is included. Protime 15.3 (H) 11.9 - 14.2 seconds [facility] INR 1.2 <=5.9 [facility] Specimen Blood Narrative Performed At Effective 12/31/2018: PT Reference Range [facility] Change New: 11.9-14.2Previous: 11.7-14.7 RECOMMENDED COUMADIN/WARFARIN INR THERAPY RANGES STANDARD DOSE: 2.0-3.0Includes: PROPHYLAXIS for venous thrombosis, systemic embolization; TREATMENT for venous thrombosis and/or pulmonary embolus. HIGH RISK: Target INR is 2.5-3.5 for patients wiht mechanical heart valves. Performing Organization Address City/[facility]/Zipcode Phone Number [facility] [address] [place] [phone] CENTER Magnesium (01/19/2020 3:55 AM CDT)Only the most recent of3 resultswithin the time period is included. Magnesium 2.2 1.6 - 2.6 mg/dL [facility] Specimen Blood Narrative Performed At Air Conditioning Sheet Metal Installer ID - AYAZ Horne [facility] Performing Organization Address [facility] Phone Number [address] [phone] CENTER Basic Metabolic Panel (01/19/2020 3:55 AM CDT)Only the most recent of3 results within the time period is included. Sodium 135 (L) 136 - 145 meq/L [facility] Potassium 3.5 3.5 - 5.1 meq/L [facility] Chloride 104 98 - 107 meq/L [facility] CO2 24 22 - 29 meq/L [facility] BUN 20 7 - 21 mg/dL [facility] Creatinine 0.78 0.57 - 1.25 mg/dL [facility] Glucose 99 70 - 105 mg/dL [facility] Calcium 7.7 (L) 8.4 - 10.2 mg/dL [facility] EGFR 118Comment: ESTIMATED GFR IS mL/min/1.73 sq m [facility] NOT ACCURATE CREATININE [facility] CLEARANCE IN PREDICTING GLOMERULAR FILTRATION RATE. ESTIMATED GFR IS NOT APPLICABLE FOR DIALYSIS PATIENTS. Specimen Blood Narrative Performed At Air Conditioning Sheet Metal Installer ID - AYAZ Horne [facility] Performing Organization Address City/[facility] Vegas[facility] Phone Number [facility] [address] [place], [place] [phone] CENTER Prepare Leuko-Red RBC (01/18/2020 11:54 PM CDT) CROSSMATCH COMPATIBLE SAFETRACE TX Unit ABO B Pos SAFETRACE TX UNIT NUMBER [id number] SAFETRACE TX Status TX_TIMEINCHART SAFETRACE TX Blood Bank Product RED BLOOD CELLS SAFETRACE TX PRODUCT CODE [id number] SAFETRACE TX CROSSMATCH COMPATIBLE SAFETRACE TX Unit ABO B Pos SAFETRACE TX UNIT NUMBER [id number] SAFETRACE TX Status TX_TIMEINCHART SAFETRACE TX Blood Bank Product RED BLOOD CELLS SAFETRACE TX PRODUCT CODE [id number] SAFETRACE TX CROSSMATCH COMPATIBLE SAFETRACE TX Unit ABO B Pos SAFETRACE TX UNIT NUMBER [id number] SAFETRACE TX Status TX_TIMEINCHART SAFETRACE TX Blood Bank Product RED BLOOD CELLS SAFETRACE [place] PRODUCT CODE [id number] SAFETRACE [place] Specimen Other Performing Organization Address [facility] Phone Number SAFETRACE [place] Venous doppler arm, right (01/18/2020 4:00 PM CDT) Ejection Fraction [facility] ECHO HEAR TLAB MKCKESSON CPACS Specimen Impressions Performed At Right Impression [facility] ECHO HEARTLAB MKCKESSON CPACS 1. There [...] Upper Extremities Veins SLE ECHO HEARTLAB MKCKESSON [facility] Demographics Patient NameFrancie CUEVAS of Study 01/18/2020 74 Visit [id number] Male of 1945 Referring Thao Hung Room Number [id number] Physician Zuri Senior User Experience Architect BEBA Mantilla Physician Procedure Type of [...] Extremities Veins Demographics Patient Name HOANG CUEVAS Geoffrye e of Study 01/18/2020 Age 74 Visit Number [id number] Gen varsha Male Accession Number [id number] Geoffrey e of 1945 Referring Thaoebony hung Number [id number] Physician Zuri Senior User Experience Architect Wyatt Gonzalez Int erpretin Meenakshi Hill, [...] are measured in cm Performing Organization Address City/State/[facility] Vegas[facility] Phone Number SLEH ECHO HEARTLAB MKCKESSON [facility] REPORT OF PROCEDURE - ENDOSCOPY URL (01/17/2020 5:18 PM CDT) Narrative Performed At This result has an attachment that is no t available. Tissue Exam (01/17/2020 5:03 PM CDT) Case Report Surgical Pathology Report Case: [id number] [facility] Authorizing Provider:David Ozuna, Collected: 01/17/2020 05:03 PM [facility] Ordering Location: [address] Received:01/18/2020 09:09 AM Service Pathologist: Wayne Mcadams MD Specimen:Biopsy, Gas tric, Random gastric bx ADDENDUM Immunostain for helicobacter [facility] [employer] [facility] performed on block A1 is [facility] POSITIVE. 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 [facility] NEGATIVE FOR INTESTINAL METAPLASIA, DYSPLASIA, O R INVASIVE CARCINOMA. WARTHIN STARRY STAIN FOR HELICOBACTER IS NEGATIV E. IMMUNOSTAIN FOR HELICOBACTER IS PENDING, ADDENDU M REPORT TO FOLLOW. Signing Pathologist Direct Phone Line: CPT Code(s) 87856, 96571, 57179 [facility] [employer] [facility] CLINICAL HISTORY GI BLEED [facility] [employer] H [facility] ER SPECIMEN SOURCE Gastric biopsy [facility] ALTH [facility] GROSS DESCRIPTION Received in formalin labeled with the patient's name, accession number and "gastric biopsy" are 3 fam-pink tissue fragments measuring up to 0.3 cm in greatest dimension which are filtered and submitted in toto in A1. [facility] MARYLIN Augustin (ASCP)cm MICROSCOPIC DESCRIPTION PERFORMED. [facility] SPECIAL STUDIES The interpretation of this c ase included the use of immunohistochemistry or special stains. [facility] BLOCK A1- GRISEL PEREA, HELICOBACTER IMMUNOSTA IN. [facility] Control Slides Examined: In -house known positive controls were evaluated along with the test tissue. These control slides run alongside of the patients sample show appropriate staining. Internal posit vivien and negative controls when available are [employer] Immunohistochemistry technic al testing was performed at [facility], Pathology Laboratory where it was developed and its performance characteristics were determined. It has not be en cleared or approved by [facility] U.S. Food and Drug Administration. The FDA has determined that such clearance or approval is not necessary. The test is used for clinical purposes. It should not be regarde d as investigational or for research. This laboratory is certified under the Clinical Laboratory Improvement Amendments of 1988 (CLIA-88) as qualified to perform high complexity clinical laboratory testing. Gross assessment was [facility] performed at [place], Department of [facility] Pathology, [address] [place] [id number], Technical component was [facility] performed at [place], Department of [facility] Pathology, [address] [place] [id number], Professional component [facility] was performed at [place], Department of [facility] Pathology, [address] [place] [id number], Specimen Tissue Performing Organization Address City/State/Zipcode Phone Number [address] [address] [place] [employer] Leuko-Red RBC (01/17/2020 8:35 AM CDT)Only the most recent of4 resultswithin the time period is included.Hemoglobin and hematocrit (01/17/2020 5:38 AM CDT)Only the most recent of2 resultswithin the time period is included. Hemoglobin 6.2 (L) 13.7 - 17.5 GM/DL [facility] Hematocrit 19.3 (L) 40.1 - 51.0 % [facility] Specimen Blood Narrative Performed At Air Conditioning Sheet Metal Installer ID - [id number] [facility] Performing Organization Address City/[facility]/Zipcode Phone Number [facility] [address] [place] [address] CENTER ABORH, manual (01/17/2020 1:27 AM CDT) ABO Grouping B [facility] Rh Factor POS [facility] Specimen Blood Performing Organization Address City/[facility]/Zipcode Phone Number [facility] [address] [place] [address] Vitamin B12 and Folate (01/17/2020 1:26 AM CDT) Vitamin B12 >2000 (H) 213 - 816 pg/mL [facility] Folate 14.20 >=7.00 ng/mL [facility] Specimen Blood Narrative Performed At Air Conditioning Sheet Metal Installer ID - PIAYA L [facility] Performing Organization Address City/[facility]/Zipcode Phone Number [facility] [address] [place] [address] [place] Iron, TIBC, % sat. (without ferritin) (01/17/2020 1:26 AM CDT) Iron 38.0 (L) 40.0 - 160.0 ug/dL [facility] TIBC 151 (L) 250 - 450 ug/dL [facility] Iron % Saturation 25 20 - 55 % [facility] Specimen Blood Narrative Performed At Air Conditioning Sheet Metal Installer ID - MARVA Aguila [facility] Performing Organization Address City/[facility] Phone Number [address] [address] CENTER Haptoglobin (01/17/2020 1:26 AM CDT) Haptoglobin 277 (H) 14 - 258 mg/dL [facility] Specimen Blood Narrative Performed At Air Conditioning Sheet Metal Installer ID - MARVA Aguila [facility] Performing Organization Address [facility] Phone Number [address] [address] CENTER Ferritin (01/17/2020 1:26 AM CDT) Ferritin 947.60 (H) 5.00 - 275.00 ng/mL [facility] Specimen Blood Narrative Performed At Air Conditioning Sheet Metal Installer ID - MARVA Aguila [facility] Performing Organization Address [facility] Phone Number [address] [address] CENTER Type and screen, automated (01/17/2020 12:57 AM CDT) ABO/RH AUTOMATED (LONNIE) B POSITIVE [facility] Ab Scrn NEGATIVE [facility] Specimen Blood Performing Organization Address City/[facility] Phone Number [address] [address] PT/aPTT (01/17/2020 12:57 AM CDT) Protime 16.5 (H) 11.9 - 14.2 seconds [facility] INR 1.4 <=5.9 [facility] PTT 31.0 22.5 - 36.0 seconds [facility] Specimen Blood Narrative Performed At Effective 12/31/2018: PT Reference Range [facility] Change New: 11.9-14.2Previous: 11.7-14.7 RECOMMENDED COUMADIN/WARFARIN INR THERAPY RANGES STANDARD DOSE: 2.0-3.0Includes: PROPHYLAXIS for venous thrombosis, systemic embolization; TREATMENT for venous thrombosis and/or pulmonary embolus. HIGH RISK: Target INR is 2.5-3.5 for patients wiht mechanical heart valves. Performing Organization Address City/[facility] Phone Number [address] [phone] [place] Reticulocyte count (01/17/2020 12:57 AM CDT) % Retic 4.9 (H) 0.5 - 1.8 % [facility] Specimen Blood Narrative Performed At Air Conditioning Sheet Metal Installer ID - [id number] [facility] Performing Organization Address [facility] Phone Number [address] [address] CENTER Lactate dehydrogenase (LDH) (01/17/2020 12:57 AM CDT) LDH 484 (H) 125 - 220 U/L [facility] Specimen Blood Narrative Performed At Air Conditioning Sheet Metal Installer ID - PIAYA L [facility] Performing Organization Address [facility] Phone Number [address] [address] [place] Hepatic function panel (01/17/2020 12:57 AM CDT) Protein, Total 5.8 (L) 6.0 - 8.3 gm/dL [facility] Albumin 2.7 (L) 3.5 - 5.0 g/dL [facility] Total Bilirubin 0.6 0.2 - 1.2 mg/dL [facility] Bilirubin, Direct 0.4 0.1 - 0.5 mg/dL [facility] Alkaline Phosphatase 71 40 - 150 U/L [facility] AST 40 (H) 5 - 34 U/L [facility] ALT 26 6 - 55 U/L [facility] Specimen Blood Narrative Performed At Air Conditioning Sheet Metal Installer ID - PIAYA L [facility] Performing Organization Address City/State/Zipcode Phone Number [facility] [address] [place] [address] CENTER ECG 12 lead (01/17/2020 12:08 AM CDT) Specimen Narrative Performed At Ventricular Rate 84 BPM GE MUSE Atrial Rate 84 BPM P-R Interval 228 ms QRS Duration 86 ms Q-T Interval 414 ms QTC Calculation(Bazett) 489 ms P [place] 89 degrees R [place] 40 degrees T [place] 35 degrees Sinus rhythm with 1st degree [...] 414 ms QTC Calculation(Bazett) 489 ms P [place] 89 degrees R [place] 40 degrees T [place] 35 degrees Sinus rhythm with 1st degree A-V block Nonspecific ST abnormality Prolonged QT Abnormal ECG No previous ECGs available Confirmed by MD LORENZANA YOCHAI ([id number]) on 01/18/2020 10:52:55 AM Performing Organization Address City/State/Zipcode Phone Number GE MUSE after 03/04/2019 Insurance Payer Benefit Plan / Group Subscriber ID Type Phone A ddress [facility] HMO xxxxxxxxx MEDICARE MGD CARE CDC REVIEW CDC REVIEW xxxxx[place] [address] [place] [place] [address] Advance Directives For more information, please contact:[facility] [place], [place] [phone] Code Status Date Activated Date Inactivated Comments Full Code 01/16/2020 11:57 PM 01/19/2020 11:53 AM This code status was determined by: Patient
--- OUTSIDE RECORDS SUMMARY | 2020-03-04 11:00 | XMS REPORT | Continuity of Care Document ---
:1945 Author Organization [facility] t Address [facility] [address] [place] [address] Care Team Providers Name Role Phone JACQUIE Attending Clinician Unavailable Jacquie GAMBLE Attending Clinician Enrique Avila MD Attending Clinician Zuri GAMBLE, Wong Attending Clinician [phone] Chana GAMBLE, Vivian Attending Clinician Tima GAMBLE, Raymond Attending Clinician Bib Mi Attending Clinician VISIT, PROGRAM ARCHITECT ECHO Attending Clinician Unavailable JACQUIE Admitting Clinician Unavailable Payers Payer Name Policy Type Policy Number Effective Date Expiration Source Date [facility] - xxxxxxxxx [facility] - CAREUNITED MEDICARE Medic al HMOxxxxxxxxx [place] CDC REVIEWCDC xxxxxxxx [facility] RE[facility] Medical [id number] Center Problems Condition Condition Condition Status Onset [...] kes - on on 00:00: Medical 00 [place] 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 M emoria a 00:26:45 l (disorder) Shaun n Bradycardi a (disorder) Active Problem 09/06/2019 Medical Group Hypertensi Problem Active 2019-09-06 M emoria ve 00:26:45 l disorder, [place] systemic Hypertensi arterial ve (disorder) disorder, systemic arterial (disorder) Active Problem 09/06/2019 Medical Group Obesity Problem Active 2019-09-06 León tj (disorder) 00:26:45 l Obesity Santino (disorder) Active Problem 09/06/2019 Medical Group 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 Social History Social Habit Start Date Stop Date Quantity Comments Source History [facility] Alcohol [facility] Std Drinks [facility] History [facility] Alcohol [facility] Binge [facility] Sex Assigned At [facility] History [facility] Alcohol 2020-01-17 2020-01-17 1 [facility] - Frequency 00:00:00 00:00:00 [facility] Smoking Status Start Date Stop Date Source Never smoker [facility] edical [place] Medications Ordered Filled Start Stop Current Ordering Indication Dosage Frequency Signature Comments Components Source Medication Medication Date Date Medication? Clinician (SIG) Name Name pantoprazol 2019- Yes 40mg Q.5D Take 1 [facility] 01-18 tablet (40 [facility] - (PROTONIX) 00:00: 23:59 mg total) edical 40 MG 00 :00 by mouth 2 Center tablet (two) times daily for 90 days. pantoprazol 2019- No 40mg Q.5D Take 1 [facility] 6-15 06-16 tablet (40 [facility] - [...] Santino 09 180 tab, 3 Refill(s), Pharmacy: [facility] amLODIPine 2018-0 Yes 5 mg = 1 Mem oria 5 mg oral 8-01 tab, PO, l tablet 15:37: BID, # 60 Shaun n 07 tab, 11 Refill(s), Pharmacy: [facility] amLODIPine 2018-0 No 5 mg = 1 Mem oria 5 mg oral 1-21 tab, PO, l tablet 22:16: BID, # 60 Shaun n 21 tab, 11 Refill(s), Pharmacy: [facility] flecainide 2017-08 Yes 100 mg = 1 M emoria 100 mg oral 1-01 tab, PO, l tablet 16:47: Q12H, # [place] 00 180 tab, 3 Refill(s), Pharmacy: [facility] amLODIPine 2017-0 Yes 5 mg = 1 Mem oria 5 mg oral 7-12 tab, PO, l tablet 15:46: BID, # 30 Shaun n 41 tab, 11 Refill(s), Pharmacy: [facility] flecainide 2017-0 Yes 50 mg = 1 Me moria 50 mg oral 7-12 tab, PO, l tablet 15:46: Q12H, # 60 Celina nn 00 tab, 5 Refill(s), Pharmacy: [facility] 808 Vital Signs Vital Name Observation Time Observation Value Comments Source Systolic blood 2020-01-19 07:00:00 122 mm[Hg] [facility] Diastolic blood 2020-01-19 07:00:00 64 mm[Hg] [facility] Heart rate 2020-01-19 07:00:00 74 /min [facility] Body temperature 2020-01-19 07:00:00 36.28 Stacey [facility] Respiratory rate 2020-01-19 07:00:00 18 /min [facility] Body weight Measured 2020-01-19 07:00:00 95.7 kg [facility] BMI 2020-01-19 07:00:00 28.61 kg/m2 [facility] Oxygen saturation in 2020-01-19 07:00:00 99 /min [facility] Arterial blood by Medical Ce nter Pulse oximetry Body height 2020-01-17 00:00:00 182.9 cm [facility] Systolic (mm Hg) 2019-09-03 16:13:00 León rial Santino Diastolic (mm Hg) 2019-09-03 16:13:00 Mem orial [place] Heart Rate 2019-09-03 16:13:00 [facility] Height 2019-09-03 16:13:00 187.96 cm [facility] Weight 2019-09-03 16:13:00 [facility] BMI Calculated 2019-09-03 16:13:00 Memori al [place] Weight 2019-03-05 14:43:00 [facility] [place] Height 2019-03-05 14:43:00 187.96 cm [facility] [place] BMI Calculated 2019-03-05 14:43:00 Memori al [place] Heart Rate 2019-03-05 14:43:00 [facility] [place] Systolic (mm Hg) 2019-03-05 14:43:00 León rial [place]ino Diastolic (mm Hg) 2019-03-05 14:43:00 Mem orial [place] Systolic (mm Hg) 2018-09-05 17:41:00 León rial [place] Diastolic (mm Hg) 2018-09-05 17:41:00 Mem orial Santino Heart Rate 2018-09-05 17:41:00 [facility] [place] Height 2018-09-05 17:41:00 187.96 cm [facility] Weight 2018-09-05 17:41:00 [facility] [place] BMI Calculated 2018-09-05 17:41:00 Memori al [place] BMI Calculated 2018-06-05 16:04:00 Memori al [place] Height 2018-06-05 16:04:00 185.42 cm [facility] [place] Weight 2018-06-05 16:04:00 [facility] [place] Systolic (mm Hg) 2018-06-05 16:04:00 León rial Santino Diastolic (mm Hg) 2018-06-05 16:04:00 Mem orial Santino Heart Rate 2018-06-05 16:04:00 [facility] BMI Calculated 2018-02-13 15:20:00 Memori al [place] Weight 2018-02-13 15:20:00 [facility] Systolic (mm Hg) 2018-02-13 15:20:00 León rial Santino Diastolic (mm Hg) 2018-02-13 15:20:00 Mem orial [place] Heart Rate 2018-02-13 15:20:00 [facility] [place] Height 2018-02-13 15:20:00 185.42 cm [facility] [place] Height 2017-12-25 15:51:00 185.42 cm [facility] [place] BMI Calculated 2017-12-25 15:51:00 Memori al [place] Weight 2017-12-25 15:51:00 [facility] [place] Systolic (mm Hg) 2017-12-25 15:51:00 León rial [place] Diastolic (mm Hg) 2017-12-25 15:51:00 Mem orial Santino Heart Rate 2017-12-25 15:51:00 [facility] [place] Height 2017-07-03 17:24:00 185.42 cm [facility] [place] Weight 2017-07-03 17:24:00 [facility] [place] Systolic (mm Hg) 2017-07-03 17:24:00 León rial [place] Diastolic (mm Hg) 2017-07-03 17:24:00 Mem orial [place] BMI Calculated 2017-07-03 17:24:00 Memori al Santino Heart Rate 2017-07-03 17:24:00 [facility] [place] Procedures Procedure Date / Time Performed Performing Clinician Sour e SARS-COV2/RT-PCR ([facility] & 2020-02-12 11:50:00 [facility] REF LABS) [facility] REPORT OF PROCEDURE - 2020-01-20 13:53:10 Provider, Default [facility] - ENDOSCOPY SCAN [facility] RHYTHM STRIP - SCAN 2020-01-20 13:53:05 Provider, Default [facility] TRANSFUSION SERVICE 2020-01-19 18:10:35 Provider, Default [facility] REPORT - SCAN [facility] BASIC METABOLIC PANEL (7) 2020-01-19 03:55:00 MELISSA Dhillon I [facility] MAGNESIUM 2020-01-19 03:55:00 [facility] PR[facility]/INR 2020-01-19 [facility] & AUTO 2020-01-19 03:55:00 Jacquie [facility] S t [facility] DIFFERENTIAL [facility] PREPARE LEUKO-REDUCED RBC 2020-01-18 23:54:00 MartMELISSA Saxena I [facility] TRANSFUSION SERVICE 2020-01-18 18:00:14 Provider, Default [facility] VENOUS DOPPLER ARM, RIGHT 2020-01-18 16:00:00 Thao Keating [facility] BASIC METABOLIC PANEL (7) 2020-01-18 04:48:00 MELISSA Dhillon I [facility] MAGNESIUM 2020-01-18 04:48:00 [facility] PROT[facility] TIME/INR 2020-01-18 04:48:00 [facility] W/PLT [facility] & AUTO 2020-01-18 04:48:00 ARVIN [facility]on S [facility] DIFFERENTIAL [facility] REPORT OF PROCEDURE - 2020-01-17 17:18:[address] [facility] ENDOSCOPY [facility] TISSUE EXAM 2020-01-17 17:03:00 David Alfred [facility] UPPER 2020-01-17 13:03:[address] [facility] ENDOSCOPY,SCLEROTHERAPY [facility] UPPER ENDOSCOPY,BIOPSY 2020-01-17 13:03:00 David Alfred [facility] CBC W/PLT COUNT & AUTO 2020-01-17 12:11:00 Van Cope [facility] TRANSFUSE LEUKO-REDUCED 2020-01-17 08:35:27 [facility] TRANSFUSE LEUKO-REDUCED 2020-01-17 06:06:38 [facility] RED BLOOD CELLS [facility] HEMOGLOBIN AND HEMATOCRIT 2020-01-17 05:38:00 Jacquie [facility] PROTHROMBIN TIME/INR 2020-01-17 03:16:00 [facility] HEMOGLOBIN AND HEMATOCRIT 2020-01-17 03:16:00 Jacquie [facility] TRANSFUSE LEUKO-REDUCED 2020-01-17 02:57:49 [facility] ABORH, MANUAL 2020-01-17 01:27:00 Marla Berger [facility] VITAMIN B12 AND FOLATE 2020-01-17 01:26:00 [facility] IRON, TIBC, % SAT. 2020-01-17 01:26:00 [facility] 2020-01-17 01:26:00 [facility] HAPTOGLOBIN 2020-01-17 01:26:00 [facility] BASIC METABOLIC PANEL (7) 2020-01-17 00:57:00 Jacquie I [facility] MAGNESIUM 2020-01-17 00:57:00 [facility] HEPAT[facility] FUNCTION PANEL 2020-01-17 00:57:00 Jacquie [facility] S [facility] PT/APTT 2020-01-17 00:57:[address] [facility] RETICULOCYTE COUNT 2020-01-17 00:57:00 [facility] LACTATE DEHYDROGENASE 2020-01-17 00:57:[address] [facility] (LDH) [facility] TYPE AND SCREEN, 2020-01-17 00:57:00 Jacquie [facility] s - AUTOMATED [facility] CBC W/PLT COUNT & AUTO 2020-01-17 00:57:00 Jacquie [facility] S t [facility] DIFFERENTIAL [facility] SARS-COV2/RT-PCR ([facility] & 2020-01-17 00:37:00 Jacquie [facility] - REF LABS) [facility] ECG 12-LEAD 2020-01-17 00:08:[address] [facility] Encounters Start End Encounter Admission Attending Care Care Encounter Source Date/Time Date/Time Type Type Clinicians Facility Department ID 2019-09-03 2019-09-03 [place] [id number] 10:00:00 23:59:59 Abraham Mccartney 16 2019-03-05 2019-03-05 [place] [id number] 10:00:00 23:59:59 Abraham Mccartney 15 2018-09-05 2018-09-05 [place] [id number] 11:15:00 23:59:59 Abraham Mccartney 14 2018-09-05 2018-09-05 Outpatient Hiwot, [facility] [id number] 11:15:00 23:59:59 Abraham Mccartney 14 2018-09-05 2018-09-05 Outpatient VISIT, MG MG [id number] 10:45:00 23:59:59 NURSE PROGRAM ARCHITECT 13 ECHO 2018-09-05 2018-09-05 Outpatient VISIT, [facility] [id number] 10:45:00 23:59:59 NURSE PROGRAM ARCHITECT 13 ECHO 2018-06-05 2018-06-05 Outpatient Hiwot, [facility] [id number] 11:00:00 23:59:59 Abraham Bib 12 2018-02-13 2018-02-13 Outpatient Hiwot, [facility] [id number] 10:45:00 23:59:59 Abraham Bib 11 2018-02-13 2018-02-13 Outpatient VISIT, [facility] [id number] 10:00:00 23:59:59 NURSE PROGRAM ARCHITECT 10 SENTHIL 2017-12-25 2017-12-25 Outpatient Hiwot, [facility] [id number] 11:00:00 23:59:59 Abraham Bib 09 2017-08-16 2017-08-17 Outpatient [facility] [id number] 15:30:00 23:59:59 00 2017-08-16 2017-08-17 Outpatient [facility] [id number] 15:30:00 23:59:59 00 2017-07-03 2017-07-03 Outpatient Hiwot, [facility] [id number] 12:00:00 23:59:59 Abraham Bib 08 2017-07-03 2017-07-03 Outpatient Hiwot, [facility] [id number] 11:30:00 23:59:59 Abraham Bib 07 Results Test Description Test Time Test Comments Results Result Comments Source SARS-CoV2/RT-PCR ([facility] & Ref Labs) 2020-02-13 11:36:00 Test Item Value Reference Range Interpretation Comme nts SARS-COV2/RT-PCR (test code = Not Detected Not Detected, Negative 97856-8) SARS-COV-2 PERFORMING LAB [facility] (test code = 28401-3) BEAR (test code = BEAR) Negative results [...] of the Act. Fact Sheet for Healthcare Providers:https://www.2can/Documents/Xpert%20Xpress %20SARS%20CoV-2/Fact%20Sheets /3023802%63WFZY-ZDN-0%20HEAL THCARE%20PROVIDERS%20FACT%20S HEET.pdf Fact Sheet for Healthcare Patients:https://www.[employer]/Documents/Xpert%20Xpress% 20SARS%20CoV-2/Fact%20Sheets/ 3023801%31OXDU-TPA-7%20PATIE NT%20FACT%20SHEET.pdf Performing Laboratory:[place] [address] [place] [place], [place] [address] [place], [place] [address]ARS-COV2/RT-PCR ([facility] & REF LABS)2020-02-13 11:36:00 Test Item Value Reference Range Interpretation Comments SARS-COV2/RT-PCR (test Not Detected Not Detected, Negative code = 6612276) SARS-COV-2 PERFORMING LAB [facility] (test code = 4147537) Negative results do not preclude SARS-CoV-2 infection [...] of the Act.Fact Sheet for Healthcare Pro viders:https://www.ClickGanic/Documents/Xpert%20Xpress%20SARS%20CoV-2/Fact%20Sh eets/302-3802%90HYYB-UQF-8%20HEALTHCARE%20PROVIDERS%20FACT%20SHEET.pdfFact Sheet for Healthcare Patients:https://www.Rapleaf/Documents/Xpert%20Xpress%20SARS%20CoV-2/Fact%20Sheets/302-3801%20SARS-COV -2%20PATIENT%20FACT%20SHEET.pdfPerforming Laboratory:[facility] [place] [address] 87659Ymgjgg [id number] 10:48:00 Test Item Value Reference Range Interpretation Comments Case Report (test code Surgical Pathology = 104) Report Case: [id number] Authorizing Provider: David Alfred, Collected: 01/17/2020 05:03 PM Ordering Location: [address] Received: 01/18/2020 09:09 AM Service Pathologist: Wayne Mcadams MD Specimen: Biopsy, Gastric, Random gastric bx ADDENDUM (test code = [id number] 3381) ZmOZJoq3pqLXZgtGKkTrAk MzNcZnRuYmpcdWMxXGRlZm Cyp8wnx611sALuh8ijHINe DgM9mYTfDAYelHXjP901o7 gap2ueseHyaDV4OGObPAE2 OXkmniRsdgO2HKlfcGMhJm P9SMpfbyAgNYubbiZsdoGc Jzo3LRFdA113LPJ3dIobj3 gyYCZ4OCVnTLSiXaOnLn4m pCGvO339UOUpLDQAMMJuyB f3AYYvebLtbuFmjIWOr659 A885h4huDGFnymSdwOnUqm oit9lcL123WZQjjUGtnsNj AfYpZXRnhZZwcZT6DMArGK 8fnqcyTBsjHUlrJWTqnzA7 TNCbnUOcI5PaWNYfDP7zby anBGV7QXrlGKSlZHW6SuFo COLxf1Qsrof4KbAmwp8cxq 44YAM3x2XojKzpYIP5QNA8 JlMgKu9ovMMlCLOeYE7sGn BqpQZlHTNgln65zFblCJye peCoiJ8mSjJcQBBoyDNdLC VwDS6xmDGySTStcT4fxgwa XHBnYnJkcmhlYWRccGdicm SdNm7bmUreHQO9DHcbQ9hm xS5aImF2XSmzR8jrhB9tII o7BIzsmPH3ATYooF3hMU9k cgudm2ivKYrdCDdhYUXurr U3gvC7SBErdNPrY2VuxD2c XSDsVW2nfegae8glKVY4HI bkIQVvDII6CyToXRIjm7Mz djv2ZuFoa2ZyvDEjCVneJ7 6sy568UDJwytOlA7kzqEDn xevxmSXfxjnnFQttcaL2QB FsXHBsYWluXGYwXGZzMjBc bGFuZzEwMzNcaGljaFxmMF hbQlEqECXmEUtaO4zlQiMi OwOkWTFFpE10sa3wkRZlak Fgr8VjmSDlvNKbOtMwqWAh WIXaneZucj2oZPHthsGdtJ 9eyvDEMGVxqcFFV2ZXRYoY HD6vbCGovM== DIAGNOSIS (test code = i9ndqSQfCJKlm5mrOSWwoI 3220) FuZzEwMzNcZnRuYmpcdWMx GLvffzEgIXfsg4IhC1YyBy AwMFxhbnNpXGRlZmxhbmcx GXBsRBG4nyCuYZVpXDvsNK GwVXnkRn7aqDUqnXscXiKj PUGyx7utvoVMhhngySy7u7 zbWGPrVoL8oLHdHPidG6ig hqXtxLBzGYAmJAm8mO03YB WvrN8amWPuPBwguwZsAgD3 EFzsAMKfApI7YRVsnEKnGD LsE4hdGBUqGHcyRXUzXKay yCEuQJK3cDuli0K6tPWukX WgyVdeRuKhRwFmPPYAd6Hn LQe9tLuxU8QhBASzDmI4oL QgUGFyYWdyYXBoIEZvbnQ7 qZ00SVvtddE8iQZhh3Hib1 1xi170mM3ejHJbNWG5BOEp UJYqiRFpMDBeGLY0SVDxeH WnB5n5CrOnpVLqG7W8EnGz sLFwU0H8KvKnoQGgN5C4Zh VbpTAmFIMpaXCnGj2xrZIc tRMfin5mka07RII0u7FafB sdMTZ4BKL6UlAmXu7fuHAw TNZxZJ9oGjKteLZpWZQxgv 57kIuiGMbqrjKhlU5kUrZz RAJwlKUuEJDyVL2raBTjKU KrvW5ygpcaFHFdLyLjuxrq SXRsqDjklzWlNx5yzDumNU V2RPmrX4podG4uBsX6BGth I0lymL7oOKx3JJmymHG3RE LshH8hKV3ojwlax4ykByOn IA5ycwlcw7iwVhEzDS1maj n6r2peHnTeTV3bywown2cq NzIwXGhlYWRlcnkwXGZvb3 DgeiiyPTRzm3SaP1KgeCyy U40mbDufY42oABXzyTmjwK 0omJkruU7wXqCsItDtKXqp bFxwbGFpblxmMVxmczIwXG tqgaxhYNKkVIifR6tnKwZv BYNmcPwmGRqtc7MtPYEyDY ZzMjAgUEFSVCBBIFJBTkRP TGOKBCGOUfnIEVBCN4NQME pccGFyIEFOVFJBTCBBTkQg U3tMAlAVCzBZXSULP1CeV4 pXZRMTN3GOWsArE9kMY07V QyBHQVNUUklUSVMuXHBhci VJOVrOLKbVYAEOB2DpXS6U IHOEPC2YWCOVTVMWURqHB1 oNSDSGQXKKUZVSOLNhUN8U IElOVkFTSVZFIENBUkNJTk 2HKB2liREaTYzFMuLMFI6v W0NSSoWRYOKJYMbYKZIBAz VPCQtSV78TVIFTGIPkCGKo TkVHQVRJVkUuXHBhciBJTU 2WVt3EZEJUBfFEV8WwIATQ SUNPQkFDVEVSIElTIFBFTk RJTkcsIEFEREVORFVNIFJF BN1LAOTNJvOIU6iYN8vuGD Qasb57LTR5LuZze8D0GTS0 ROInMOFtw3xaGVMcwFIpYr EwMzNcZnRuYmpcdWMxXGRl JdQcx8uzj176xVRmh9mdEZ WtLvL7pWRoHKCvdOFrR920 AJTyAMhpc2xyw9KrLPVyjD Jsp9B3GPKAcszorBg0iLwu J92nj2M9HdvcE1jnFCIpXN HlG6AxCP3nUMLvJgk8YFJ4 XYH7WFNnAORgL1KoDC9bXB QcoMGnVGc9u9wxyBlnIZIv DKR5a6cnERmgkoVdBZ6zed 3pnBm4o1jhrlIrZUMnAFGy jAWWEXXkF1XalYhzMc1pmR j1lIkxVyhfIXY2Nnj5RQ0w ah75kzj0wXnkOTYnleifGb S2UCjxXBSjlqmaHQe3CGzq POLaeHW7ZKDrxYWsH6NqNQ VlIC1jjdk3CFT3AWmuJWBm GkK9JNTnxNFiESEmwFndRJ gkh872HON2BmPfER2sR9Fj u8H6iV6siTDrQAKsuAQjIj OqWPZmvo9rdAJjFQeyx8Wd GWZ5uoA6sWStwNAwRRPeUn C4KKleRL5scz17IUIdHGL3 ba4kuCEmsCatplVxcXUuLO ywW7DjXSLie469CNWzM8Zl VQWzm8L1xwYhSgVgTZQbnZ T8xtR8OGOiER0ebkdju7bu CLuoAInxEXYnjnR4rjM6YB SrvEUcW2PynL2hYFWuES6c exdej6ujHII7CKggBODgCQ Q7DzRfKILin6Yoddp7GpKi t7KfaWLqBMuzZ91gw814SD QqbiWrI1thxLSevufyfVBq tciwHJwbnvS6YNZgRVyftb muEMJuBJxmH4ceAgEzYZOj hEwoNAmye7BxGHTyAHCsJd KutVMjVHAqIio6GVTsuMTq WDRuHyIsL3admtdcVuEUVB Rdh0cvQ4efhOAWrXOwZ3Ly UGhvbmUgTGluZTogODMyLT J9VK61SSrvQBCbme97 CPT Code(s) (test code w1sliRUzHBTsyGQqHnTrYR = 3357) NjAUEzt2srMQUmtLYjKrYo MzNcZnRuYmpcdWMxXGRlZm Izv6zhm196bKNpt4hoJKLi YrI6uXQvKRAotOChT247h5 ino0xqebWzjPF6DRAmJEL7 JVnqhlUjkmP7XIwwpGKvYr Z0VFoeouImOGchtfUnggTq Dwl9MZCpN813HGR3dCypv3 npRAP4RSEpCHLfAeClHv0o uRHxF465ZBYoVIAQTHBkvC p1UKJlsgCmhpShbFOIe303 Y041v3wzXUOmahFxiAvHyb gou5prB109NIItwJWkbmQi HiGqRWHhwOZtbOI6PEFsER 4ibacfGuSaGM0xptllHxPu ZX9sfke6AnSzFG8jkqylNo FmHEntCIHttmjtXCOxe2Yb caejFP8vQ1Bne4T5rE2nrO ZqRZXojNTuKzKoNDFyrk0n wAWoMQjfb7OlNYW9mnT1zF HsfJGwMQOjXK92Gtryi7Nw WdrbDYB6WVUnfdVdg3Aae7 oiHpSwdbThV8rhV3MgQVZd ZNWbUEQpEnDxviAgn9Bnn9 EqnBVtqBb6t5bxGGIqCWTo qGyla2vkCGX3UUKjT1P4zI Kjv9hyCLvnWGJgsBM1xfow NCwcBQNallH7duvaWPusDX RhtCL8wnrvCOyvKCRmKiS9 ugyvLHguECFsZSI1EDbxo3 21PUT2IJxhIkkuFTfdZYHn bmNvbnRccGduZGVjXHBsYW luXHBsYWluXGYwXGZzMjRc bOnegYsbbU4qShKiDoYeBL ddIX0hRSFkK4ttmAYqILOz KFYvN8cwYbXmcK2iiDftAN xywzQfIBf3WjN3UXZ4XIUh MiwgODgzNDJccGFyfQ== CLINICAL HISTORY (test x8grwEGxIWRibURuEpDfNQ code = 3356) EiTMTla7apGASpuWMqHvNq MzNcZnRuYmpcdWMxXGRlZm Zod0qwa357wBRui6xlCIIi YjB3wCBaHFLpkDVbI937ZO AuPPbic6tqp3MmJYJzbACj j9U3TCIBaiwziLc6eNfdL2 1eo4G0OjhhI9ouIHBwDTId K5EhIR5pMEUlYne2LNZ1HK L5ZWIbVGAuC6EkHW5yBYKu uJMeJJx1q9dkkVrwPAHaSS V0k4dsTWzvkdCgBC0opl3r kFc3x1npfbTpVUGrEMRdkG PVNXDeQ6CnwNmbEc4wyOw9 vUxvEmntYSH9Juc3PL0ihl 22zpo5fRhgVDOwfljfXrE4 YLptRVNvtireVNy2GZbdVW JnbDcyMFxtYXJncjcyMFxt YXJndDcyMFxtYXJnYjcyMF jnMJVmHKY3RGjph127RDR7 OPbyf4tpa4mcpNBoXoq4NA OjWgWwTjysJGiqk7Sce6cl XOQmor6eLIJ8iIVmqZqgr2 X2dERvTVCvmKEbulLqHCJm XcD5NDanKE0uek69PTHuHL Z8cd6plOUxaRnsirSayBTg YEzzJ1BzREArm297YGZcO3 PqQGFyt4M9zzGaCwAkLGEu dRR7ocZ8NZPbRZw9aGMrrp L2hyRmiQLoW9godE47LnRn aPYkS9BmcC29NmNeyONlR1 UgtV60DsVnmVQnS0YplT29 OaShqLMpAPCpcGOlPx1emH EigEWbh7YnmCYzKIflD29g f371DZNyawVmZ8irnLNkve uvkQUpkkxsHPlqnbY5YBq7 cnBhclxxbFxwbGFpblxmMV xmczIwXGxhbmcxMDMzXGhp B0wfCsVqPNBevIhsKQnfd0 ZnHCLhXOYvYeXtJ5onIomU RURccGFyfQ== SPECIMEN SOURCE (test v9pgqWXvSSBwwIDxVgVkSE code = 3377) FcERTst4gtENKivBQqBxAr MzNcZnRuYmpcdWMxXGRlZm Gxk6mwq812oZLkp2uyVJNe JrM3kPGsCONqnNLfM190l2 rgc2fxweFodKM1JCJjULI0 OJklqeItryJ7VArabGAxZj E2VAtxfiMbGMhhgxNdhnBh Wwl7ECFtF331XTL0sHhfx1 djKWT8FJOiFDTpSnIhSv4o pPPfP263HFZlUIHEEXMraH m0KPBywgDweoAuvTCOj560 C064r3sbONJqosKpaFeDvd uqm7yaV353YMMxaOTbhgWm SyApCNQpbIWubDP3MMYxIL 1iryziTuQlBM8sibeoYzZq NG3bblh1WrKzII9pmfwhBq SwELqhWGSnaomoUEXel5Xj aowvAE3mT3Pyz9U6iM5rpD EqBDZgfUSuPcRpJTVvfp9h lACqYTesd1VxDXS3vyE9aG XpcWJmVZHaYU69Brznw6Ct NfkaOHZ4MOJhswUye4Noe8 lgLwFntqErJ1ldH6FmQRPw HHQqSOYcOtCbuoYcp3Oct5 OlnLRvhMx5o1muMLOaZEEz fJsxu1gxKZZ0WBQbK1L7oZ Kns5inXUekNSMsaTR8bytc JNvuAONgohA3styjXIhqCK HnyIW6lgdvMUcgUSXuYzF0 bjjqNUvtASJuYQT9YKmto6 58FYD3IOovBlklFEljQKQk bmNvbnRccGduZGVjXHBsYW luXHBsYWluXGYwXGZzMjRc vIyflVwglV7gDgMzUmItSS hpZQ9rRKIfA5vmbZCbGLAl VLUxK2rsJaWxcD7kiOeaPI iqekZtJMytu2EmkZKwOdia jDT8YBNglv1= GROSS DESCRIPTION (test r1ihdKKnGZAtqDPwPqCvVV code = 3366) ZgWADsh6omGOWxmQRoBxJz MzNcZnRuYmpcdWMxXGRlZm Uca0zqh857fJXzj4djTUZg YbO1oJGqKXOnrJRrD852f7 mzf8ugzkAvbPS3NWTbXFS6 GXrzfnIlraI1QTpsqBLyVk V2QPlcqkXkGNpydjDiniCk Zmr3ZEFzU705WIN2pVgmq9 qgAEX5VIVdFTWhHvLkJl8q tOQsF641UUZhHRPIJWYlaS l3WWXbtvSyrnZxbTXBa348 X023u6hqVCPuloEolUvXbi xrd1bhL066WEKoaVUmroEf IoAhKTFubUXafGO1VQWwOH 5lmcsgLwDjTH8ujpunOpWn SC6roha1ZeOxKC8hpwwqLs WdNEwmRNZkstawNABmn3Yr lfaiPC4hW5Yjg3I2lW5hdP AcUTUkvHYaTkEnGKUzfs8l gXRlMQixo5PwUJH5xfZ3xK KszMBdZDGoRM00Dszqa8Cf UdqaEKJ2ORGrsuRaa6Bol2 xuZcWzkjOlO0tnS6IfAJVo RJQgQUVaLzJlpjLhx5Jxj6 ZhxXZmjJm1h0zsQULuHPDy jCcsi8bwUCR8XNGpN2B4yU Ndt3fdMGcdINZqwDN7lzld ZBzkHJKuexS6gqheMNeeLT QutOI1lzsbXQxaCYHqQeB8 umsfZUygBJKkCMI5FVcsa3 59BCR6XBihQxbvTLudDNLk bmNvbnRccGduZGVjXHBsYW luXHBsYWluXGYwXGZzMjRc dLvqhGpixA1iCkHdGcCtZK zmWJ8gDZMgH7vhgHLvCAJt SWTtN6ilFtIrhG6wzQboOI huxgQbOISzI3IcdfRiYVtu HMAihj6cnWxtMAmvZxDhCG Jqy7c1sVA5tJBmkWE8jLPa oQrgUM8bnROlVTOjT5Gng0 xncwKitR9mYQRcDQ0cJHTi NUC2ypjuURXub6BozBFhYG JlIDMgdGFuLXBpbmsgdGlz l2QpJMErILxiEC71ekRiFK VhkOGqknvpsUAfbX3hJB0k BKYrRIexMEkkWCC2KFK2ZE WqtNHjn2cnxjL9vKowpCKd nuRzIoxsdGWrSSJfEJ1bQZ N4Ar5vqIUrZZLhtxH6z8My IGluIEExLlxwYXJccGFyIF XlmVOqYDNeG7VlxUigsgpr SJYfIWXHE9RvJ28onXPrfV == MICROSCOPIC DESCRIPTION c8kryROtCFKvyRUvBrIkXL (test code = 3371) UlDDDkc9okKMCeuLIeZgSi MzNcZnRuYmpcdWMxXGRlZm Gzu4rnk870dWAkh2qtPOPv SpO3dBRqIJMzuIVoW169j8 svs2vdftJylET2JMQmBKZ2 HMnmvaJmssQ8FKycqMOhDs W6YYwwmzFmAHjwitAhnlBe Hmy6QIDiM083QDZ9kFeuh0 iyOBE2MZDtNPUkYyXnUd6o xWPnH757OZOwMNRPTDDmgK j8IYTehmVzgjXteDBTt971 W173p6gdPJIiwfObgHiBmc rdi7dwS263PYRaePCfxuBm NqVhKYBnuTGtxYR0KBHuKJ 0kftomJhTcQU6dcljnGsNb MF2zjen8JaAbYQ9zmjjeGl NeDRnwSCIueoayTJSqf1Mb ayioZT5rR1Wrm4W5bU3beR XyOFFzgFJwIhIoFUSafb8g eJLhVAxwj1ExTXJ9dkZ8pN BtaVUwTCNaNX43Pnkef5Bm IvreWJP4TMTwtoKyc1Jkj6 glBbZxolViI1ebB4BwIQEt UAPzPXKlGdRluqCja4Iqi3 JjyOTumZd9t1atWLKyZRJb aZumw0vmUPG0VACpY3U2nK Jxk8zzFJxjGXWsfHD4gmrb HQbqXZWpncT6tfdoSGyiXD HrtZZ8zqbvOCxsFDGeZgZ4 yacoVMnqABVxPFT4HNuui0 89IUL3ADpfGodeRNtfHTDw bmNvbnRccGduZGVjXHBsYW luXHBsYWluXGYwXGZzMjRc aPdirXrnoW4hTwXoOzRuLG ytQI7fFSMvI1ulbIFsXCIk UDEkK5lyNbKmyZ2msHwiBL erkwJtFAKYRgYUTp4FIA7h cGFyfQ== SPECIAL STUDIES (test r7lnxCOrVEVouIGzPfSuDP code = 3376) DoMIWzq7ujLMWtkUMwPkLq MzNcZnRuYmpcdWMxXGRlZm Ykb2mgk799eFGvp9pvSDMj YpY8lTCmLJAzjCHnL479VQ QvKYyuo4ufe8XgHDPcgESu d3M2MIXDKKqyLuNdQ210XU IaUAewe2oan6SsBRLpfNHd e1M4ZQGSvhzboCr3fTgrT4 8mc0I1SqxcM9kyWQQkMEHr X6JdJG8hCKYcKmf2FMU4JJ N7WQJdCCAwK0QyVM0cTTGw gNQmFUt7k4aajFhjMZMqPW Y8c3blZJybwqQ1UY7wjf1g sTc0i9rvxaBcFCJvTXHyqM YOFYKmU0VfeZfqNs8hrQe0 x2fvJwkijzG0qZDhYrTbDc MyMFxsaTBccmkwIENvUGF0 bDOBWNq8S269c0kaEBLgnw GbcOuNxyqhf8kxF220AZBk cGVydzEyMjQwXHBhcGVyaD W8TTUvLK4yoqywIeFfLV7q dnoyWfPoRB7fvki0LyHxEI 1hcmdiNzIwXGhlYWRlcnkw ELYah0RjmjqwKT9eB1Ety3 Q0eN0cePHkAXQsoMPeDcIa RPTiqb8htYCqEPpzIHX6AD JoliUff2Ruh4wbRrAotpSe A6xtF2InJHTfXDInYPUeLa McqvTgv1Bpx0TmsADgbSu3 x2rzRWLcRAKurAmvn3koQJ Z0OJYkG0M9gPLfl2rbKBre RUOuiLE2adylROueRTCtfi R7vffcCGqhEGPtiPO1ehog OGytIJIoUjL2mwmnRQztDF QvNTS6ORhtl709ZGA2DFxj YmtwYWdlXHBnbmNvbnRccG duZGVjXHBsYWluXHBsYWlu XGYwXGZzMjRccWxccGxhaW 3mKnZmUwVuDjokIG9gEUHe T3szuEZcQRKsUCBuR1bnZv XrtY6pyOozBGsiYiQpBgWa MbIIkGRttL54BXBnbfB0QA Gfe28ar2ZzzUaqifRcEOZr JMxpA6c2FCDzTFSjUZP9y2 Xev4UhoI1ofS3uiJggdD3g xEAqxMH3juvpe6Zie4NbR0 lhbCBzdGFpbnMuXHBsYWlu XGYxXGZzMjJcbGFuZzEwMz NcaGljaFxmMVxkYmNoXGYx KDwvO6yzAnZpI8IbYDLbSk AivYBuZ4hqqLVqUKEwOCek XGYxXGZzMjJcbGFuZzEwMz NcaGljaFxmMVxkYmNoXGYx ZJuoS9wnVeZoO1QhUBKdQp CiKqaBQ1dlIDSaWBaNGyOB OZ6gR1TVLyRPQDKXDIvEA8 3AANSOPCHoFZ7QXS6CH8SB YX4eJTJmAQkcNRCwULMcXn JcbGFuZzEwMzNcaGljaFxm MLfqMaDtYTQmINogP5wqDh HxH8CfQZOgCxGwsTGsN4lj cGFyXHBsYWluXGYxXGZzMj JcbGFuZzEwMzNcaGljaFxm OCuqVbCwZKYkJPpgJ6suMl NxS1OvOEXuIrKkR98fhEMr bCBTbGlkZXMgRXhhbWluZW N8SPIAcz9om3QnMXLybw42 mlRsn6NzdDn1MWDkh684mr 3zmfT1ZNXlVTG0CEf4RQAg EAQgpI2mZwA6xGYrEFEhDL I4HVI4WXUvk0S3RQ6iYPZe SMBxURSamhIlg3ujd3bgQM YoTCM6xjKvfR7sW5ZoSWZl l5UppUktOEEskNbtbyVnYT GnxGCwAGFkaW31HDDdwTQp jOTxXILpOMF6WGuaoE6wGv XBtwMvix0lyTOox2VwqOq8 ZSBhbmQgbmVnYXRpdmUgY2 4vpWGlhZIzk7jokmHwheYi iJGbhYPjELUqVCI6KBb2KZ RlZFxwbGFpblxmMVxmczIy SMzilfadRQTkOEicP6dpVl AaHYZniWscSUraw6OkSXCf KAQoSzplspAdSGf6jfLzZD BhclxwbGFpblxmMVxmczIy DMktxltdTHNnDUfmS9atDj CcNKBtmThfXEhvp1EwGFFp XGNmMlxmczIyICBccGxhaW 3zUrRxSrSaWbydOO4xDZCj T7xfyNAcZBKjLEXwP9aiRf XrlD9zwSlkIGznQaQcElCa MlxsdHJjaFxwYXJccGxhaW 6zGpStKwAdKmxpXJ5hZEXw M9mbyHTuKAWpPBRzX3afTe XxwG4elQfyKJjvNrRpNbWq HhHQiZ54sl0lvDO5i7NbXT 0na3WguRM5IOKhfqmwTGnc oUOmfEtvJxP4WRSgmWGrMh 7wvSNlHXO2FXEfoIblwiKL rS5vWNGeBUamdOJolgknCR xmczIyXGxhbmcxMDMzXGhp E3erKrLeICYouXrrEXlsb8 NoXGYxXGNmMlxmczIyXHU4 WwT2HEuzQPYjfCukdT4qSh ZzSdNyXirsSQ6vORHxT9iu cWLpSLFwRGPnY2mjMhMmuV 9jaFxmMVxjZjJcZnMyMiBz MZ5aVIttXQxuK1UnwVHeYE OEPYHkc8ilA9rfFUGlu3Uz fQ6opFB2hLNmRNNsqYF7DJ KaUBQ9CZvjxCEdWHNkNAAp rEAmlTXeTi9spZNhP5GzB5 omqpUnyVKgtMI3sNVzARna lyRpBFU5ZBRfpH9pLL3gUP DbsJFrNV1lpBAlRJZePOAc JTFsSRVxb1KgBLUcqz64VC YrRrnakDkpWDHrNi4wHb4q MFCwioDbOBY3QiMCAP7rvi btnPVszVyxdq9vHTvoSTXL TZAjBLVdJVB3VRYdrF4tEM C8cWJ9GMZ2F4niT1niXVJk rcLkSL8mXSWgzDTduoKyNO qiOJ2vjBViBLAtf6Hkjrhk BLAqGFK7NEM0EIyeSRAgHR SyOo9kCLDrnJ4oR8LwNZO0 loOsk3NsKvZIvSBqpF58pJ Qxlx69TIOePDOkG6AoDPDq IGFzIGludmVzdGlnYXRpb2 1unDWsuuGwl6RknxEuCKKo V6aiMFQkjRWoiBIcw6XxbX 1onODuywRdGAD4xMBnBNCn vG3lPYTfvIjyBUYjsO7dW3 CiTXchUf1kJRTlkrbaER8r md44KK7pjlZkZA7mkoSdQL 57dsTuOfIiQGf6HGeOOLvR HYj0FIRqssIdeFRgdWXgIU NsjL7yyUVeGp0fiASlpQcc CBTbqXJhAVndbGgiD9ukcx yqGMugpPTqh6DreS4daGC1 ARO9iX2xFqbvfNGapzsxTp xmczIyXGxhbmcxMDMzXGhp S7imEgVfPOZacHetGphkx4 NoXGYyXGZzMjJccGFyXHBh ptFchLphxA1nTdQgEcZsOX dwmELqiilaZdbxchJ0ATNq cn0= Gross assessment was [facility] performed at ([facility], = 2777) Department of Pathology, [address] [place] [address], Technical component was [facility] performed at ([facility], = 2778) Department of Pathology, [address] [place] [address], Professional component [facility] was performed at ([facility], code = 2779) Department of Pathology, [address] [place] [address], [facility] [id number] 10:48:00Surgical Pathology Report Case: [id number] Authorizing Provider: David Alfred, Collected: 01/17/2020 05:03 PM OrderingLocation: [address] Received: 01/18/2020 09:09 AM Service Pathologist: [...] REPORT TO FOLLOW.Signing Pathologist Direct Phone Line: [phone] signed by Wayne Mcadams MD on 01/18/2020 at 4:47 [id number], [id number] BLEEDGastric biopsyReceived in formalin labeled withthe patient's name, accession number and "gastric biopsy" are 3 fam-pink tissue fragments measuring up to 0.3 cm in greatest dimension which are filtered and submitted in toto in A1.MARYLIN Augustin ([facility])cmPERFORMED.The interpretation of this case included the use of immunohistochemistry or special stains.BLOCK A1- WARTHIWesley STARRYAN, HELICOBACTER IMMUNOSTAIN.Control Slides Examined: In-house known positive controls were evaluated along with the test tissue. These control slides run alongside of the patients sample show appropriate staining. Internal positive and negative controls when available are evaluated Immunohistochemistry technical testing was performed at [facility], Pathology Laboratory where it was developed [...] qualified to perform high complexity clinical laboratory testing.[facility], Department of Pathology, [address] [place] [address], [facility], [address] [place] [address], [facility], [facility] of [facility], [address] [place] [address], Bjdxoh doppler arm, right 2020-01-19 11:48:48Ejection FractionSLEH ECHO [...] Date of Study 01/18/2020 Age 74 VisitNumber [id number] Gender Male Accession Number [id number] Date of 1945 Referring Thao Baker Room Number 1023 Physician [employer]uri [employer] Wyatt Gonzalez Interpreting Meenakshi Hill Pineda Physician [...] in cm/s ; Diameters are measured in [facility] Basic Metabolic [id number] 04:55:00 Test Item Value Reference Range Interpretation [...] (test code = 7.7 mg/dL 8.4-10.2 L 04856-0) EGFR (test code = 118 mL/min/1.73 [place] [address]-6) NOT ACCURATE CREATININE CLEARANCE IN PREDICTING GLOMERULAR FILTRATION RATE . ESTIMATED GFR I S NOT APPLICABLE FOR DIALYSIS PATIENTS. BEAR (test code = BEAR) Shipping And Receiving Weigher ID - AYAZ W Lab Interpretation Abnormal (test code = 64298-6) [facility]2020-[facility] 04:55:00 Test Item Value Reference Range Interpretation Comments Magnesium (test code = 2.2 mg/dL 1.6-2.6 78345-5) BEAR (test code = BEAR) Shipping And Receiving Weigher ID Jose JACOME W Lab Interpretation (test Normal code = 04465-2) [facility]2020-06-16 04:55:00 Test Item Value Reference Range Interpretation Comments MAGNESIUM (BEAKER) (test code = 2.2 mg/dL 1.6-2.6 627) Shipping And Receiving Weigher ID Jose JACOME WBASIC METABOLIC [id number] 04:55:00 Test Item Value Reference Range Interpretation [...] S NOT APPLICABLE FOR DIALYSIS PATIEN TS. Shipping And Receiving Weigher ID Jose JACOME WCBC with platelet count + automated [id number] 04:31:00 Test Item Value Reference Range Interpretation [...] 450 K/CU MM MPV (test code = 60190-3) 11.9 fL 9.4-12.4 nRBC (test code = [...] 2801) Lab Interpretation (test code = Abnormal 60739-3) [facility] W/PLT COUNT & AUTO [id number] 04:31:00 Test Item Value Reference Range Interpretation [...] PERCENT (BEAKER) (test code = 2801) Prothrombin time/[id number] 04:30:00 Test Item Value Reference Range Interpretation [...] valves. Lab Interpretation Abnormal (test code = 61434-0) [facility]fieldPROTHROMBIN TIME/[id number] 04:30:00 Test Item Value Reference Range Interpretation [...] for patients wiht mechanical heart valves.Prepare Leuko-Red [id number] 23:54:00 Test Item Value Reference Range Interpretation Comments CROSSMATCH (test code = 2264) COMPATIBLE Unit ABO (test code = B Pos 8610348) UNIT NUMBER (test code = [id number] 934-0) Status (test code = 2722154) TX_TIMEINCHART Blood Bank Product (test code RED BLOOD CELLS = 2263) PRODUCT CODE (test code = A0325C60 933-2) [facility]fieldECG 12 [id number] 10:52:57Interface, External Ris In - 01/18/2020 10:53 AM CDTVentricular Rate 84 BPMAtrial Rate 84 BPMP-R Interval 228 msQRS Duration 86 msQ-T Interval 414 msQTC Calculation(Bazett) 489 msP Brownell 89 degreesR Brownell 40 degreesT Brownell 35 degreesSinus rhythm with 1st degree A-V blockNonspecific ST abnormalityProlonged QTAbnormal ECGNo previous ECGs availableConfirmed by MD HARRIETT, ROULA ([id number]) on 01/18/2020 10:52:55 AM [facility]IUM2020-06-15 05:53:00 Test Item Value Reference Range Interpretation Comments MAGNESIUM (BEAKER) (test code = 2.4 mg/dL 1.6-2.6 627) Shipping And Receiving Weigher ID - PIAYA LBASIC METABOLIC [id number] 05:53:00 Test Item Value Reference Range Interpretation [...] S NOT APPLICABLE FOR DIALYSIS PATIEN TS. Shipping And Receiving Weigher ID - PIAYA LPROTHROMBIN TIME/[id number] 05:26:00 Test Item Value Reference Range Interpretation [...] mechanical heart valves.CBC W/PLT COUNT & AUTO [id number] 05:15:00 Test Item Value Reference Range Interpretation [...] = 2801) CBC W/PLT COUNT & AUTO [id number] 12:38:00 Test Item Value Reference Range Interpretation [...] (BEAKER) (test code = 2801) Hemoglobin and [id number] 05:57:00 Test Item Value Reference Range Interpretation Comments Hemoglobin (test code = 6.2 13.7- 17.5 GM/DL L 786-4) Hematocrit (test code = 19.3 % 40.1-51 L 4544-3) BEAR (test code = BEAR) Shipping And Receiving Weigher ID - 6000 Lab Interpretation (test Abnormal code = 75930-2) [facility]fieldHEMOGLOBIN AND [id number] 05:57:00 Test Item Value Reference Range Interpretation Comments HEMOGLOBIN (BEAKER) (test code = 6.2 GM/DL 13.7-17.5 L 410) HEMATOCRIT (BEAKER) (test code = 19.3 % 40.1-51.0 L 411) Shipping And Receiving Weigher ID - 6000Vitamin B12 and [id number] 05:35:00 Test Item Value Reference Range Interpretation Comments Vitamin B12 (test code = >2000 213-816 H 2132-9) Folate (test code = 14.20 ng/mL >=7.00 2284-8) BEAR (test code = BEAR) Shipping And Receiving Weigher ID - PIAYA L Lab Interpretation (test Abnormal code = 01210-6) [facility]field[facility]ITAMIN B12 AND [id number] 05:35:00 Test Item Value Reference Range Interpretation Comments VITAMIN B12 (BEAKER) (test code = > pg/mL 213-816 H 774) FOLATE (BEAKER) (test code = 362) 14.20 ng/mL >=7.00 Shipping And Receiving Weigher ID - MARVA [id number] 05:27:00 Test Item Value Reference Range Interpretation Comments Ferritin (test code = 947.60 ng/mL 5-275 H 2276-4) BEAR (test code = BEAR) Shipping And Receiving Weigher ID - PIAYA L Lab Interpretation (test Abnormal code = 41196-8) [facility]fieldFERRITIN2020-06-14 05:27:00 Test Item Value Reference Range Interpretation Comments FERRITIN (BEAKER) (test code = 947.60 ng/mL 5.00-275.00 H 361) Shipping And Receiving Weigher ID - PTEEYAYA LHEMOGLOBIN AND [id number] 03:47:00 Test Item Value Reference Range Interpretation Comments HEMOGLOBIN (BEAKER) (test code = 5.3 GM/DL 13.7-17.5 LL 410) HEMATOCRIT (BEAKER) (test code = 16.1 % 40.1-51.0 L 411) Shipping And Receiving Weigher ID - MarizaPROTHROMBIN TIME/[id number] 03:38:00 Test Item Value Reference Range Interpretation [...] INR is2.5-3.5 for patients wiht mechanical heart valves.Gtqnkqrqvqs2518-51-48 02:11:00 Test Item Value Reference Range Interpretation Comments Haptoglobin (test code = 277 mg/dL 14-258 H 4542-7) BEAR (test code = BEAR) Shipping And Receiving Weigher ID - MARVA L Lab Interpretation (test Abnormal code = 77399-3) [facility]field[facility]APTOGLOBIN2020-06-14 02:11:00 Test Item Value Reference Range Interpretation Comments HAPTOGLOBIN (BEAKER) (test code = 277 mg/dL 14-258 H 366) Shipping And Receiving Weigher ID - MARVA Kurt, TIBC, % sat. (without ferritin)2020-01-17 02:10:00 Test Item Value Reference Range Interpretation Comments Iron (test code = 2498-4) 38.0 ug/dL 40-160 L TIBC (test code = 2500-7) 151 ug/dL 250-450 L Iron % Saturation (test 25 % 20-55 code = 2502-3) BEAR (test code = BEAR) Shipping And Receiving Weigher ID - MARVA L Lab Interpretation (test Abnormal code = 88977-7) [facility]ON, TIBC, % SAT. (WITHOUT FERRITIN)2020-01-17 02:10:00 Test Item Value Reference Range Interpretation Comments IRON (BEAKER) (test code = 547) 38.0 ug/dL 40.0-160.0 L TOTAL IRON BINDING CAPACITY 151 ug/dL 250-450 L (BEAKER) (test code = 769) IRON % SATURATION (2) (BEAKER) 25 % 20-55 (test code = 2590) Shipping And Receiving Weigher ELVIRA DURHAM KRISTEN, [id number] 02:00:00 Test Item Value Reference Range Interpretation Comments ABO Grouping (test code = 2588) B Rh Factor (test code = 2589) POS [facility]fieldType and screen, [id number] 01:59:00 Test Item Value Reference Range Interpretation Comments ABO/RH AUTOMATED (BEAKER) (test B POSITIVE code = 2260) Ab Scrn (test code = 890-4) NEGATIVE [facility]fieldHepatic function [id number] 01:50:00 Test Item Value Reference Range Interpretation Comments Protein, Total (test code 5.8 6.0- 8.3 gm/dL L = 2885-2) Albumin (test code = 2.7 g/dL 3.5-5 L 66763-8) Total Bilirubin (test code 0.6 mg/dL 0.2-1.2 = 1975-2) Bilirubin, Direct (test 0.4 mg/dL 0.1-0.5 code = 1968-7) Alkaline Phosphatase (test 71 U/L 40-150 code = 6768-6) AST (test code = 1920-8) 40 U/L 5-34 H ALT (test code = 1742-6) 26 U/L 6-55 BEAR (test code = BEAR) Shipping And Receiving Weigher ELVIRA DURHAM L Lab Interpretation (test Abnormal code = 67562-0) [facility]fieldLactate dehydrogenase (LDH)2020-01-17 01:50:00 Test Item Value Reference Range Interpretation Comments LDH (test code = 2532-0) 484 U/L 125-220 H BEAR (test code = BEAR) Shipping And Receiving Weigher ELVIRA DURHAM L Lab Interpretation (test Abnormal code = 12256-7) [facility]field[facility]NESIUM2020-06-14 01:50:00 Test Item Value Reference Range Interpretation Comments MAGNESIUM (BEAKER) (test code = 2.4 mg/dL 1.6-2.6 627) Shipping And Receiving Weigher ELVIRA DURHAM LBASIC METABOLIC [id number] 01:50:00 Test Item Value Reference Range Interpretation [...] S NOT APPLICABLE FOR DIALYSIS PATIEN TS. Shipping And Receiving Weigher ID - MARVA LHEPATIC FUNCTION [id number] 01:50:00 Test Item Value Reference Range Interpretation [...] (test code = 26 U/L 6-55 347) Shipping And Receiving Weigher ID - MARVA LLACTATE DEHYDROGENASE (LDH)2020-01-17 01:50:00 Test Item Value Reference Range Interpretation Comments LACTATE DEHYDROGENASE (BEAKER) (test 484 U/L 125-220 H code = 635) Shipping And Receiving Weigher ID - MARVA LSARS-COV2/RT-PCR ([facility] & REF LABS)2020-01-17 01:38:00 Test Item Value Reference Range Interpretation Comments SARS-COV2/RT-PCR (test Not Detected Not Detected, Negative code = 4212633) SARS-COV-2 PERFORMING LAB [facility] (test code = 3942664) Negative results do not preclude SARS-CoV-2 infection [...] of the Act.Fact Sheet for Healthcare Pro viders:https://www.ClickGanic/Documents/Xpert%20Xpress%20SARS%20CoV-2/Fact%20Sh eets/3023802%70IYBG-REM-9%20HEALTHCARE%20PROVIDERS%20FACT%20SHEET.pdfFact Sheet for Healthcare Patients:https://www.Rapleaf/Documents/Xpert%20Xpress%20SARS%20CoV-2/Fact%20Sheets/3023801%20SARS-COV -2%20PATIENT%20FACT%20SHEET.pdfPerforming Laboratory:[facility], [place] [address]XL/[id number] 01:24:00 Test Item Value Reference Range Interpretation Comments Protime (test code = 16.5 11.9- 14.2 H 5902-2) seconds INR (test code = 1.4 <=5.9 6301-6) PTT (test code = 31.0 22.5- 36.0 55698-6) seconds BEAR (test code = BEAR) Effective 12/31/2018: PT Reference Range ChangeNew: 11.9-14.2 Previous: 11.7-14.7 RECOMMENDED COUMADIN/WARFARIN INR THERAPY RANGESSTANDARD DOSE: 2.0-3.0 Includes: PROPHYLAXIS for venous thrombosis, systemic embolization; TREATMENT for venous thrombosis and/or pulmonary embolus.HIGH RISK: Target INR is 2.5-3.5 for patients wiht mechanical heart valves. Lab Interpretation Abnormal (test code = 47048-1) [facility]fieldPT/[id number] 01:24:00 Test Item Value Reference Range Interpretation [...] is2.5-3.5 for patients wiht mechanical heart valves.Reticulocyte [id number] 01:20:00 Test Item Value Reference Range Interpretation Comments % Retic (test code = 4.9 % 0.5-1.8 H 39012-1) BEAR (test code = BEAR) Shipping And Receiving Weigher ID - 6000 Lab Interpretation (test Abnormal code = 68768-3) [facility]fieldCB W/PLT COUNT & AUTO [id number] 01:20:00 Test Item Value Reference Range Interpretation [...] PERCENT (BEAKER) (test code = 2801) RETICULOCYTE [id number] 01:20:00 Test Item Value Reference Range Interpretation Comments RETICULOCYTE COUNT PCT (BEAKER) (test 4.9 % 0.5-1.8 H code = 575) Shipping And Receiving Weigher ID - 6000
[2020-03-04 12:06] VITALS: O2SAT 100; BMI 29.1
[2020-03-04 16:01] VITALS: BP 122/53; TEMP 97.6
[2020-03-04 17:17] LABS: Absolute Lymphocytes (CBC) 0.2 K/uL (0.7-4.9); Hematocrit 21.6 % (39.6-49.0); Lymphocytes % 96.1 % (15.3-44.8); MPV 8.4 fL (7.6-11.3); RBC Red Blood Cell Count 2.52 M/uL (4.33-5.43)
== END ==
LOC: DS 10:08
PROVIDERS: ATTEND Internal Medicine Hematology & Oncology
DX: D69.59 Other secondary thrombocytopenia (principal); C83.30 Diffuse large B-cell lymphoma, unspecified site
CPT/HCPCS: 85025; 36415; 86900; 86850; 86901; 36430; P9035; P9016; J7050 ×2

== ENCOUNTER 2020-03-07 15:41 | Inpatient (IN) | payer OTHER ==
--- OUTSIDE RECORDS SUMMARY | 2020-03-07 15:49 | XMS REPORT | Continuity of Care Document ---
:1945 Author Organization [facility] Care Team Providers Name Role Phone [facility] Unavailable Un available Problems Problem Status Onset [...] Q12H, # 180 tab, 3 Refill(s), Pharmacy: [facility] 808 amLODIPine 5 5 mg = 1 Active 03/05/20 Medica l mg oral tab, PO, 19 Group tablet BID, # 60 tab, 11 Refill(s), Pharmacy: [facility] 808 amLODIPine 5 5 mg = 1 No Longer 08/25/19 Medi crow mg oral tab, PO, Active 19 Group tablet BID, # 60 tab, 11 Refill(s), Pharmacy: [facility] 808 flecainide 100 mg = 1 Active 06/05/20 Medica l 100 mg oral tab, PO, 18 Group tablet Q12H, # 180 tab, 3 Refill(s), Pharmacy: [facility] 808 amLODIPine 5 5 mg = 1 Active 02/14/20 Medica l mg oral tab, PO, 18 Group tablet BID, # 30 tab, 11 Refill(s), Pharmacy: [facility] 808 flecainide 50 50 mg = 1 Active 02/14/20 Medi crow mg oral tab, PO, 18 Group tablet Q12H, # 60 tab, 5 Refill(s), Pharmacy: [facility] 808 Allergies, Adverse Reactions, Alerts [...] Number For Provider Date Date Visit Outpatient [id number] RANDEE 04/19 [facility] Outpatient [id number] ECHO VISIT 05/09 Act [facility] Outpatient [id number] [facility] [id number] [facility] Out[facility] [id number] [facility]ANDEE 06/13 [facility] [place] [facility] [id number] RANDEE 07/03 [facility] [place] [facility] [id number] OTHER 07/[address] [facility] VISIT Santino [facility] Outpatient [id number] Wesley 07/03 07/04 Cardiology [place] /2016 [facility] Outpatient [id number] Wesley 07/03 07/04 [facility] [facility] [id number]/16 08/18 Cardiology Medical /2017 [facility] Outpatient [id number] RANDEE 12/25 [facility]OT Santino [facility] Outpatient [id number] Randee 12/25 12/26 Cardiology [place] /2017 [facility] Outpatient [id number] ECHO VISIT 02/13 [facility] [place] [facility] [id number] RANDEE 02/13 [facility] Outpatient [id number] Wesley 02/13 02/14 [facility] [place] [facility] [id number] Wesley 02/13 02/14 Cardiology [place] /2017 [facility] Outpatient [id number] RANDEE 06/05 [facility]2018 [place] [facility] [id number] Randee 06/05 06/06 Cardiology [place] /2017 [facility] Outpatient [id number] ECHO VISIT 09/05 Act [facility] [place] Outpatient [id number] RANDEE 09/05 [facility] /2019 [place] [facility] Outpatient [id number] Wesley 09/05 09/06 [facility] [place] /2018 [facility] Outpatient [id number] Randee 09/05 09/06 [facility] [place] /2018 [facility] Outpatient [id number] Randee 03/05 [facility] [place] [facility]2019 [place] [facility] Outpatient [id number] Randee 03/05 03/06 Cardiology [place] /2018 [facility] Outpatient [id number] Randee 09/03 [facility] [place] [facility]2020 [place] [facility] Outpatient [id number] Randee 09/03 09/04 Cardiology [place] /2019 /2019 [facility] Outpatient [id number] Randee 03/03 [facility] [place] /2020 [place] Procedures No Data Provided for This Section [...]
--- OUTSIDE RECORDS SUMMARY | 2020-03-07 15:49 | XMS REPORT | Clinical Summary ---
:1945 Author Organization [facility] Address [address] [place] [address] Care Team Providers Name Role Phone Unavailable [...] u lcer with hemorrhage MD Wong after 03/07/2019 Social History Tobacco Use Types Packs/Day Years [...] procedure are in the results section. after 03/07/2019 Results SARS-CoV2/RT-PCR ([facility]) (02/12/2020 11:50 AM CDT)Only the most recent of2 resultswithin the time period is included. SARS-COV2/RT-PCR Not Detected Not Detected, Negative [facility] SARS-COV-2 PERFORMING LAB [facility] Specimen Other Narrative Performed At Negative results do not preclude SARS-CoV-2 [facility] infection and should not be used as [...] the Act. Fact Sheet for Healthcare Providers: https://www.[employer]Documents/Xpert%20Xpre ss%20SARS%20CoV-2/Fact%20Sheets/302-4882%20SAR S-COV-2%20HEALTHCARE%20PROVIDERS%20FACT%20SHEE T.pdf Fact Sheet for Healthcare Patients: https://www.[employer]Documents/Xpert%20Xpre ss%20SARS%20CoV-2/Fact%20Sheets/302-4693%20SAR S-COV-2%20PATIENT%20FACT%20SHEET.pdf Performing Laboratory: [facility] [address] [place] [address]. [place] [address] Performing Organization Address City/State/Zipcode Phone Number [address] [address] CENTER EKG-SCANNED (01/20/2020 1:53 PM [...] included. WBC 5.6 3.5 - 10.5 K/L [facility] RBC 2.50 (L) 4.63 - 6.08 M/L [facility] Hemoglobin 7.4 (L) 13.7 - 17.5 GM/DL [facility] Hematocrit 23.1 (L) 40.1 - 51.0 % [facility] MCV 92.4 (H) 79.0 - 92.2 fL [facility] MCH 29.6 25.7 - 32.2 pg [facility] MCHC 32.0 (L) 32.3 - 36.5 GM/DL [facility] RDW 16.9 (H) 11.6 - 14.4 % [facility] Platelets 156 150 - 450 K/CU MM [facility] MPV 11.9 9.4 - 12.4 fL [facility] nRBC 0 0 - 0 /100 WBC [facility] % Neutros 73 % [facility] % Lymphs 13 % [facility] % Monos 9 % [facility] % Eos 2 % [facility] % Baso 0 % [facility] # Neutros 4.11 1.78 - 5.38 K/L [facility] # Lymphs 0.74 (L) 1.32 - 3.57 K/L [facility] # Monos 0.53 0.30 - 0.82 K/L [facility] # Eos 0.12 0.04 - 0.54 K/L [facility] # Baso 0.02 0.01 - 0.08 K/L [facility] Immature Granulocytes-Relative 2 (H) 0 - 1 % C [facility] Specimen Blood Performing Organization Address City/State/Zipcode Phone Number [facility] [address] [place] [address] CENTER Prothrombin time/INR (01/19/2020 3:55 AM CDT)Only the most recent of3 results within the time period is included. Protime 15.3 (H) 11.9 - 14.2 seconds [facility] INR 1.2 <=5.9 [facility] Specimen Blood Narrative Performed At Effective 12/31/2018: PT Reference Range [facility] Change New: 11.9-14.2Previous: 11.7-14.7 RECOMMENDED COUMADIN/WARFARIN INR THERAPY RANGES STANDARD DOSE: 2.0-3.0Includes: PROPHYLAXIS for venous thrombosis, systemic embolization; TREATMENT for venous thrombosis and/or pulmonary embolus. HIGH RISK: Target INR is 2.5-3.5 for patients wiht mechanical heart valves. Performing Organization Address City/[facility]/Zipcode Phone Number [facility] [address] [place] [phone] CENTER Magnesium (01/19/2020 3:55 AM CDT)Only the most recent of3 resultswithin the time period is included. Magnesium 2.2 1.6 - 2.6 mg/dL [facility] Specimen Blood Narrative Performed At Media Relations Coordinator ID - AYAZ Horne [facility] Performing Organization Address [facility] Phone Number [address] [phone] CENTER Basic Metabolic Panel (01/19/2020 3:55 AM CDT)Only the most recent of3 results within the time period is included. Sodium 135 (L) 136 - 145 meq/L [facility] Potassium 3.5 3.5 - 5.1 meq/L [facility] Chloride 104 98 - 107 meq/L [facility] CO2 24 22 - 29 meq/L [facility] BUN 20 7 - 21 mg/dL [facility] Creatinine 0.78 0.57 - 1.25 mg/dL [facility] Glucose 99 70 - 105 mg/dL [facility] Calcium 7.7 (L) 8.4 - 10.2 mg/dL [facility] EGFR 118Comment: ESTIMATED GFR IS mL/min/1.73 sq m [facility] NOT ACCURATE CREATININE [facility] CLEARANCE IN PREDICTING GLOMERULAR FILTRATION RATE. ESTIMATED GFR IS NOT APPLICABLE FOR DIALYSIS PATIENTS. Specimen Blood Narrative Performed At Media Relations Coordinator ID - AYAZ Horne [facility] Performing Organization Address City/[facility]/Unm Hospitalcode Phone Number [facility] [address] [place], [place] [phone] CENTER Prepare Leuko-Red RBC (01/18/2020 11:54 PM CDT) CROSSMATCH COMPATIBLE SAFETRACE TX Unit ABO B Pos SAFETRACE TX UNIT NUMBER [id number] SAFETRACE TX Status TX_TIMEINCHART SAFETRACE TX Blood Bank Product RED BLOOD CELLS SAFETRACE TX PRODUCT CODE [id number] SAFETRACE TX CROSSMATCH COMPATIBLE SAFETRACE TX Unit ABO B Pos SAFETRACE TX UNIT NUMBER [id number] SAFETRACE TX Status TX_TIMEINCHART SAFETRACE TX Blood Bank Product RED BLOOD CELLS SAFETRACE TX PRODUCT CODE [id number] SAFETRACE TX CROSSMATCH COMPATIBLE SAFETRACE TX Unit ABO B Pos SAFETRACE TX UNIT NUMBER [id number] SAFETRACE TX Status TX_TIMEINCHART SAFETRACE TX Blood Bank Product RED BLOOD CELLS SAFETRACE TX PRODUCT CODE [id number] SAFETRACE [place] Specimen Other Performing Organization Address [facility] Phone Number SAFETRACE [place] Venous doppler arm, right (01/18/2020 4:00 PM CDT) Ejection Fraction [facility] ECHO HEAR TLAB MKCKESSON CPACS Specimen Impressions Performed At Right Impression [facility] ECHO HEARTLAB MKCKESSON [...] Upper Extremities Veins SLE ECHO HEARTLAB MKCKESSON [facility] Demographics Patient NameFrancie CUEVAS of Study 01/18/2020 74 Visit [id number] Male of 1945 Referring Thao Hung Room Number [id number] Physician Zuri Steffen House Supervisor BEBA Mantilla Physician Procedure Type of Study: [...] of Study 01/18/2020 Age 74 Visit Number [id number] Gen varsha Male Accession Number [id number] Geoffrey e of 1945 Referring Thaoebony hung Number 1023 Physician Zuri Steffen House Supervisor Wyatt Gonzalez Int erpretin Meenakshi Hill, BALBIRS [...] are measured in cm Performing Organization Address City/State/Unm Hospitalcode Phone Number SLEH ECHO HEARTLAB MKCKESSON [facility] REPORT OF PROCEDURE - ENDOSCOPY URL (01/17/2020 5:18 PM CDT) Narrative Performed At This result has an attachment that is no t available. Tissue Exam (01/17/2020 5:03 PM CDT) Case Report Surgical Pathology Report Case: [id number] [facility] Authorizing Provider:David Ozuna, Collected: 01/17/2020 05:03 PM [facility] Ordering Location: [address] Received:01/18/2020 09:09 AM Service Pathologist: Wayne Mcadams MD Specimen:Biopsy, Gas tric, Random gastric bx ADDENDUM Immunostain for helicobacter [facility] [employer] [facility] performed on block A1 is [facility] POSITIVE. 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 [facility] NEGATIVE FOR INTESTINAL METAPLASIA, DYSPLASIA, O R INVASIVE CARCINOMA. WARTHIN STARRY STAIN FOR HELICOBACTER IS NEGATIV E. IMMUNOSTAIN FOR HELICOBACTER IS PENDING, ADDENDU M REPORT TO FOLLOW. Signing Pathologist Direct Phone Line: CPT Code(s) 16036, [id number], [id number] [facility] [employer]z [facility] CLINICAL HISTORY GI BLEED [facility] [employer] [facility] ER SPECIMEN SOURCE Gastric biopsy [facility] GROSS DESCRIPTION Received in formalin labeled with the patient's name, accession number and "gastric biopsy" are 3 fam-pink tissue fragments measuring up to 0.3 cm in greatest dimension which are filtered and submitted in toto in A1. [facility] Augustin (ASCP)cm MICROSCOPIC DESCRIPTION PERFORMED. [facility] SPECIAL STUDIES The interpretation of this c ase included the use of immunohistochemistry or special stains. [facility] BLOCK A1- GRISEL PEREA, HELICOBACTER IMMUNOSTA IN. [facility] Control Slides Examined: In -house known positive controls were evaluated along with the test tissue. These control slides run alongside of the patients sample show appropriate staining. Internal posit vivien and negative controls when available are [employer] Immunohistochemistry technic al testing was performed at [facility], Pathology Laboratory where it was developed and its performance characteristics were determined. It has not be en cleared or approved by [facility] [place].S. Food and Drug Administration. The FDA has determined that such clearance or approval is not necessary. The test is used for clinical purposes. It should not be regarde d as investigational or for research. This laboratory is certified under the Clinical Laboratory Improvement Amendments of 1988 (CLIA-88) as qualified to perform high complexity clinical laboratory testing. Gross assessment was [facility] performed at [place], Department of [facility] Pathology, [address] [place] [address], Technical component was [facility] performed at [place], Department of [facility] Pathology, [address] [place] [address], Professional component [facility] was performed at [place], Department of [facility] Pathology, [address] [place] [address], Specimen Tissue Performing Organization Address City/State/Zipcode Phone Number [address] [address] ANATONE Transfuse Leuko-Red RBC (01/17/2020 8:35 AM CDT)Only the most recent of4 resultswithin the time period is included.Hemoglobin and hematocrit (01/17/2020 5:38 AM CDT)Only the most recent of2 resultswithin the time period is included. Hemoglobin 6.2 (L) 13.7 - 17.5 GM/DL [facility] Hematocrit 19.3 (L) 40.1 - 51.0 % [facility] Specimen Blood Narrative Performed At Media Relations Coordinator ID - [id number] [facility] Performing Organization Address City/[facility]/Zipcode Phone Number [facility] [address] [place] [address] CENTER ABORH, manual (01/17/2020 1:27 AM CDT) ABO Grouping B [facility] Rh Factor POS [facility] Specimen Blood Performing Organization Address City/[facility]/Zipcode Phone Number [facility] [address] [place] [address] Vitamin B12 and Folate (01/17/2020 1:26 AM CDT) Vitamin B12 >2000 (H) 213 - 816 pg/mL [facility] Folate 14.20 >=7.00 ng/mL [facility] Specimen Blood Narrative Performed At Media Relations Coordinator ID - PIAYA L [facility] Performing Organization Address City/[facility]/Zipcode Phone Number [facility] [address] [place] [address] ANATONE Iron, TIBC, % sat. (without ferritin) (01/17/2020 1:26 AM CDT) Iron 38.0 (L) 40.0 - 160.0 ug/dL [facility] TIBC 151 (L) 250 - 450 ug/dL [facility] Iron % Saturation 25 20 - 55 % [facility] Specimen Blood Narrative Performed At Media Relations Coordinator ID - MARVA Aguila [facility] Performing Organization Address City/[facility] Hospitalcode Phone Number [address] [address] CENTER Haptoglobin (01/17/2020 1:26 AM CDT) Haptoglobin 277 (H) 14 - 258 mg/dL [facility] Specimen Blood Narrative Performed At Media Relations Coordinator ID - MARVA Aguila [facility] Performing Organization Address [facility] Phone Number [address] [address] CENTER Ferritin (01/17/2020 1:26 AM CDT) Ferritin 947.60 (H) 5.00 - 275.00 ng/mL [facility] Specimen Blood Narrative Performed At Media Relations Coordinator ID - MARVA Aguila [facility] Performing Organization Address [facility] Hospital[facility] Phone Number [address] [address] CENTER Type and screen, automated (01/17/2020 12:57 AM CDT) ABO/RH AUTOMATED (LONNIE) B POSITIVE [facility] Ab Scrn NEGATIVE [facility] Specimen Blood Performing Organization Address City/[facility] Hospitalcode Phone Number [address] [address] PT/aPTT (01/17/2020 12:57 AM CDT) Protime 16.5 (H) 11.9 - 14.2 seconds [facility] INR 1.4 <=5.9 [facility] PTT 31.0 22.5 - 36.0 seconds [facility] Specimen Blood Narrative Performed At Effective 12/31/2018: PT Reference Range [facility] Change New: 11.9-14.2Previous: 11.7-14.7 RECOMMENDED COUMADIN/WARFARIN INR THERAPY RANGES STANDARD DOSE: 2.0-3.0Includes: PROPHYLAXIS for venous thrombosis, systemic embolization; TREATMENT for venous thrombosis and/or pulmonary embolus. HIGH RISK: Target INR is 2.5-3.5 for patients wiht mechanical heart valves. Performing Organization Address City/[facility] Hospital[facility] Phone Number [address] [phone] ANATONE Reticulocyte count (01/17/2020 12:57 AM CDT) % Retic 4.9 (H) 0.5 - 1.8 % [facility] Specimen Blood Narrative Performed At Media Relations Coordinator ID - [id number] [facility] Performing Organization Address [facility] Phone Number [address] [address] CENTER Lactate dehydrogenase (LDH) (01/17/2020 12:57 AM CDT) LDH 484 (H) 125 - 220 U/L [facility] Specimen Blood Narrative Performed At Media Relations Coordinator ID - PIAYA L [facility] Performing Organization Address [facility] Phone Number [address] [address] ANATONE Hepatic function panel (01/17/2020 12:57 AM CDT) Protein, Total 5.8 (L) 6.0 - 8.3 gm/dL [facility] Albumin 2.7 (L) 3.5 - 5.0 g/dL [facility] Total Bilirubin 0.6 0.2 - 1.2 mg/dL [facility] Bilirubin, Direct 0.4 0.1 - 0.5 mg/dL [facility] Alkaline Phosphatase 71 40 - 150 U/L [facility] AST 40 (H) 5 - 34 U/L [facility] ALT 26 6 - 55 U/L [facility] Specimen Blood Narrative Performed At Media Relations Coordinator ID - PIAYA L [facility] Performing Organization Address City/State/Zipcode Phone Number [facility] [address] [place] [address] CENTER ECG 12 lead (01/17/2020 12:08 AM CDT) Specimen Narrative Performed At Ventricular Rate 84 BPM GE MUSE Atrial Rate 84 BPM P-R Interval 228 ms QRS Duration 86 ms Q-T Interval 414 ms QTC Calculation(Bazett) 489 ms P [place] 89 degrees R [place] 40 degrees T [place] 35 degrees Sinus rhythm with 1st degree [...] 414 ms QTC Calculation(Bazett) 489 ms P [place] 89 degrees R [place] 40 degrees T [place] 35 degrees Sinus rhythm with 1st degree A-V block Nonspecific ST abnormality Prolonged QT Abnormal ECG No previous ECGs available Confirmed by MD LORENZANA YOCHAI ([id number]) on 01/18/2020 10:52:55 AM Performing Organization Address City/State/Zipcode Phone Number GE MUSE after 03/07/2019 Insurance Payer Benefit Plan / Group Subscriber ID Type Phone A ddress [facility] HMO xxxxxxxxx MEDICARE MGD CARE CDC REVIEW CDC REVIEW xxxxxxxx [address] [place] [address] Advance Directives For more information, please contact:[facility] [place], [place] [phone] Code Status Date Activated Date Inactivated Comments Full Code 01/16/2020 11:57 PM 01/19/2020 11:53 AM This code status was determined by: Patient
--- OUTSIDE RECORDS SUMMARY | 2020-03-07 15:51 | XMS REPORT | Continuity of Care Document ---
:[address] [facility] t Address [address] [place] [address] Care Team Providers Name Role Phone JACQUIE Attending Clinician Unavailable Jacquie GAMBLE Attending Clinician Enrique Avila MD Attending Clinician Zuri GAMBLE, Wong Attending Clinician [phone] Chana GAMBLE, Vivian Attending Clinician Tima GAMBLE, Raymond Attending Clinician Bib Mi Attending Clinician VISIT, LOCKSTITCH LINING MAKER ECHO Attending Clinician Unavailable JACQUIE Admitting Clinician Unavailable Payers Payer Name Policy Type Policy Number Effective Date Expiration Source Date [facility] - xxxxxxxxx [facility] - CAREUNITED MEDICARE Medic al HMOxxxxxxxxx [place] CDC REVIEWCDC xxxxxxxx [facility] REVIEWxxxxxxxxPO [facility] [id number] Center Problems Condition Condition Condition Status Onset [...] kes - on on 00:00: Medical 00 [place] 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 M emoria a 00:26:45 l (disorder) Shaun n Bradycardi a (disorder) Active Problem 09/06/2019 [facility] Group Hypertensi Problem Active 2019-09-06 M emoria ve 00:26:45 l disorder, Santino systemic Hypertensi arterial ve (disorder) disorder, systemic arterial (disorder) Active Problem 09/06/2019 Medical Group Obesity Problem Active 2019-09-06 León tj (disorder) 00:26:45 l Obesity [place] (disorder) Active Problem 09/06/2019 Medical Group 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 Social History Social Habit Start Date Stop Date Quantity Comments Source History SDOH Alcohol [facility] - Std Drinks [facility] History [facility] Alcohol [facility] Binge [facility] Sex Assigned At [facility] History SDTN Alcohol 2020-01-17 2020-01-[address] [facility] - Frequency 00:00:00 00:00:00 [facility] Smoking Status Start Date Stop Date Source Never smoker [facility] edical [place] Medications Ordered Filled Start Stop Current Ordering Indication Dosage Frequency Signature Comments Components Source Medication Medication Date Date Medication? Clinician (SIG) Name Name pantoprazol 2019- Yes 40mg Q.5D Take [address] [facility] [address] e 16 04-18 tablet (40 [facility] - (PROTONIX) 00:00: 23:59 mg total) edical 40 MG 00 :00 by mouth 2 Center tablet (two) times daily for 90 days. pantoprazol 2019- No 40mg Q.5D Take [address] [facility] [address] [facility] 6-15 06-16 tablet (40 [facility] - (PROTONIX) 00:00: 00:00 mg total) M edical 40 MG 00 :00 by mouth 2 Center tablet (two) times daily for 30 days. pantoprazol 2020-0 2020- No 40mg QD Take [address] [facility] 6-15 06-15 tablet (40 [facility] - (PROTONIX) 00:00: 00:00 [...] 01:18: daily. Medica l 35 Center flecainide 2018-0 Yes 100 mg = 1 M emoria 100 mg oral 8-01 tab, PO, l tablet 15:37: Q12H, # [place] 09 180 tab, 3 Refill(s), Pharmacy[facility] amLODIPine 2018-0 Yes 5 mg = 1 Mem oria 5 mg oral 8-01 tab, PO, l tablet 15:37: BID, # 60 Shaun n 07 tab, 11 Refill(s), Pharmacy: [facility] amLODIPine 2018-0 No 5 mg = 1 Mem oria 5 mg oral 1-21 tab, PO, l tablet 22:16: BID, # 60 Shaun n 21 tab, 11 Refill(s), Pharmacy: [facility] flecainide 2017-08 Yes 100 mg = 1 M emoria 100 mg oral 1-01 tab, PO, l tablet 16:47: Q12H, # [place] 00 180 tab, 3 Refill(s), Pharmacy: [facility] amLODIPine 2017-0 Yes 5 mg = 1 Mem oria 5 mg oral 7-12 tab, PO, l tablet 15:46: BID, # 30 Shaun n 41 tab, 11 Refill(s), Pharmacy: [facility] flecainide 2017-0 Yes 50 mg = 1 Me moria 50 mg oral 7-12 tab, PO, l tablet 15:46: Q12H, # 60 Celina nn 00 tab, 5 Refill(s), Pharmacy: [facility] Vital Signs Vital Name Observation Time Observation Value Comments Source Systolic blood 2020-01-19 07:00:00 122 mm[Hg] [facility] Diastolic blood 2020-01-19 07:00:00 64 mm[Hg] [facility] Heart rate 2020-01-19 07:00:00 74 /min [facility] Body temperature 2020-01-19 07:00:00 36.28 Stacey [facility] Respiratory rate 2020-01-19 07:00:00 18 /min [facility] Body weight Measured 2020-01-19 07:00:00 95.7 kg [facility] BMI 2020-01-19 07:00:00 28.61 kg/m2 [facility] Oxygen saturation in 2020-01-19 07:00:00 99 /min [facility] Arterial blood by Medical Ce nter Pulse oximetry Body height 2020-01-17 00:00:00 182.9 cm [facility] Systolic (mm Hg) 2019-09-03 16:13:00 León rial [place] Diastolic (mm Hg) 2019-09-03 16:13:00 Mem orial [place] Heart Rate 2019-09-03 16:13:00 [facility] [place] Height 2019-09-03 16:13:00 187.96 cm [facility] [place] Weight 2019-09-03 16:13:00 [facility] [place] BMI Calculated 2019-09-03 16:13:00 Memori al [place] Weight 2019-03-05 14:43:00 [facility] [place] Height 2019-03-05 14:43:00 187.96 cm [facility] [place] BMI Calculated 2019-03-05 14:43:00 Memori al [place] Heart Rate 2019-03-05 14:43:00 [facility] [place] Systolic (mm Hg) 2019-03-05 14:43:00 León rial [place] Diastolic (mm Hg) 2019-03-05 14:43:00 Mem orial [place] Systolic (mm Hg) 2018-09-05 17:41:00 León rial [place] Diastolic (mm Hg) 2018-09-05 17:41:00 Mem orial [place] Heart Rate 2018-09-05 17:41:00 [facility] [place] Height 2018-09-05 17:41:00 187.96 cm [facility] [place] Weight 2018-09-05 17:41:00 [facility] [place] BMI Calculated 2018-09-05 17:41:00 Memori al [place] BMI Calculated 2018-06-05 16:04:00 Memori al [place] Height 2018-06-05 16:04:00 185.42 cm [facility] [place] Weight 2018-06-05 16:04:00 [facility] [place] Systolic (mm Hg) 2018-06-05 16:04:00 León rial [place] Diastolic (mm Hg) 2018-06-05 16:04:00 Mem orial [place] Heart Rate 2018-06-05 16:04:00 [facility] [place] BMI Calculated 2018-02-13 15:20:00 Memori al [place] Weight 2018-02-13 15:20:00 [facility] [place] Systolic (mm Hg) 2018-02-13 15:20:00 León rial [place] Diastolic (mm Hg) 2018-02-13 15:20:00 Mem orial [place] Heart Rate 2018-02-13 15:20:00 [facility] [place] Height 2018-02-13 15:20:00 185.42 cm [facility] [place] Height 2017-12-25 15:51:00 185.42 cm [facility] [place] BMI Calculated 2017-12-25 15:51:00 Memori al [place] Weight 2017-12-25 15:51:00 [facility] [place] Systolic (mm Hg) 2017-12-25 15:51:00 León rial [place] Diastolic (mm Hg) 2017-12-25 15:51:00 Mem orial [place] Heart Rate 2017-12-25 15:51:00 [facility] [place] Height 2017-07-03 17:24:00 185.42 cm [facility] [place] Weight 2017-07-03 17:24:00 [facility] [place] Systolic (mm Hg) 2017-07-03 17:24:00 León rial [place] Diastolic (mm Hg) 2017-07-03 17:24:00 Mem orial [place] BMI Calculated 2017-07-03 17:24:00 Memori al [place] Heart Rate 2017-07-03 17:24:00 [facility] [place] Procedures Procedure Date / Time Performed Performing Clinician Sour e SARS-COV2/RT-PCR ([facility] & 2020-02-12 11:50:00 [facility] REF LABS) [facility] REPORT OF PROCEDURE - 2020-01-20 13:53:10 Provider, Default [facility] ENDOSCOPY SCAN [facility] RHYTHM STRIP - SCAN 2020-01-20 13:53:05 Provider, Default [facility] TRANSFUSION SERVICE 2020-01-19 18:10:35 Provider, Default [facility] REPORT - [facility] BASIC METABOLIC PANEL (7) 2020-01-19 03:55:00 MELISSA Dhillon [facility] MAGNESIUM 2020-01-19 03[facility] 2020-01-19 [facility] W/[facility]T [facility] & AUTO 2020-01-19 03:55:00 Jacquie [facility] DIFFERENTIAL [facility] PREPARE LEUKO-REDUCED RBC 2020-01-18 23:54:00 MartMELISSA Saxena [facility] TRANSFUSION SERVICE 2020-01-18 18:00:14 Provider, Default [facility] VENOUS DOPPLER ARM, RIGHT 2020-01-18 16:00:00 Thao Keating [facility] BASIC METABOLIC PANEL (7) 2020-01-18 04:48:00 MELISSA Dhillon [facility] MAGNESIUM 2020-01-18 04:48:00 [facility] PROT[facility]/INR 2020-01-18 04:[facility] W/[facility]T [facility] & AUTO 2020-01-18 04:48:00 ARVIN [facility] DIFFERENTIAL [facility] REPORT OF PROCEDURE - 2020-01-17 17:18:[address] [facility] - ENDOSCOPY URL [facility] TISSUE EXAM 2020-01-17 17:03:00 David Alfred [facility] UPPER 2020-01-17 13:03:[address] [facility] - ENDOSCOPY,SCLEROTHERAPY [facility] UPPER ENDOSCOPY,BIOPSY 2020-01-17 13:03:00 David Alfred [facility] CBC W/PLT COUNT & AUTO 2020-01-17 12:11:00 AnatoliyVan [facility] TRANSFUSE LEUKO-REDUCED 2020-01-17 08:35:[facility]LL[facility] TRANSFUSE LEUKO-REDUCED 2020-01-17 06:06:38 [facility] RED BLOOD CELLS [facility] HEMOGLOBIN AND HEMATOCRIT 2020-01-17 05:38:00 Jacquie [facility] PROTHROMBIN TIME/INR 2020-01-17 03:16:00 [facility] HEMOGLOBIN AND HEMATOCRIT 2020-01-17 03:16:00 Jacquie [facility] TRANSFUSE LEUKO-REDUCED 2020-01-17 02:57:49 [facility] RED BLOOD CELLS [facility] ABORH, MANUAL 2020-01-17 01:27:00 Marla Berger [facility] VITAMIN B12 AND FOLATE 2020-01-17 01:26:00 [facility] IRON, TIBC, % SAT. 2020-01-17 01:26:[address] [facility] ([facility]OUT [facility]IN[facility] 2020-01-17 01:26:00 [facility] HAPTOGLOBIN 2020-01-17 01:26:00 [facility] BASIC METABOLIC PANEL (7) 2020-01-17 00:57:00 Jacquie [facility] MAGNESIUM 2020-01-17 00:57:00 [facility] HEPATIC FUNCTION PANEL 2020-01-17 00:57:00 Jacquie [facility] S [facility] PT/APTT 2020-01-17 00:57:[address] [facility] RETICULOCYTE COUNT 2020-01-17 00:57:00 [facility] LACTATE DEHYDROGENASE 2020-01-17 00:57:[address] [facility] (LDH) [facility] TYPE AND SCREEN, 2020-01-17 00:57:00 Jacquie [facility] s - AUTOMATED [facility] CBC W/PLT COUNT & AUTO 2020-01-17 00:57:00 Jacquie [facility] t [facility] DIFFERENTIAL [facility] SARS-COV2/RT-PCR ([facility] & 2020-01-17 00:37:[address] [facility] REF LABS) [facility] ECG 12-LEAD 2020-01-17 00:08:[address] [facility] Encounters Start End Encounter Admission Attending Care Care Encounter Source Date/Time Date/Time Type Type Clinicians Facility Department ID 2019-09-03 2019-09-03 [place] [id number] 10:00:00 23:59:59 Abraham Mccartney 16 2019-03-05 2019-03-05 Outpatient Hiwot, [facility] [id number] 10:00:00 23:59:59 Abraham Mccartney 15 2018-09-05 2018-09-05 [place] [id number] 11:15:00 23:59:59 Abraham Mccartney 14 2018-09-05 2018-09-05 Outpatient Hiwot, [facility] [id number] 11:15:00 23:59:59 Abraham Mccartney 14 2018-09-05 2018-09-05 Outpatient VISIT, MG [facility] [id number] 10:45:00 23:59:59 NURSE LOCKSTITCH LINING MAKER 13 ECHO 2018-09-05 2018-09-05 Outpatient VISIT, [facility] [id number] 10:45:00 23:59:59 NURSE LOCKSTITCH LINING MAKER 13 ECHO 2018-06-05 2018-06-05 Outpatient Hiwot, [facility] [id number] 11:00:00 23:59:59 Abraham Bib 12 2018-02-13 2018-02-13 Outpatient Hiwot, [facility] [id number] 10:45:00 23:59:59 Abraham Bib 11 2018-02-13 2018-02-13 Outpatient VISIT, [facility] [id number] 10:00:00 23:59:59 NURSE LOCKSTITCH LINING MAKER 10 SENTHIL 2017-12-25 2017-12-25 Outpatient Hiwot, [facility] [id number] 11:00:00 23:59:59 Abraham Bib 09 2017-08-16 2017-08-17 Outpatient [facility] [id number] 15:30:00 23:59:59 00 2017-08-16 2017-08-17 Outpatient [facility] [id number] 15:30:00 23:59:59 00 2017-07-03 2017-07-03 Outpatient Hiwot, [facility] [id number] 12:00:00 23:59:59 Abraham Bib 08 2017-07-03 2017-07-03 Outpatient Hiwot, [facility] [id number] 11:30:00 23:59:59 Abraham Bib 07 Results Test Description Test Time Test Comments Results Result Comments Source SARS-CoV2/RT-PCR ([facility] & Ref Labs) 2020-02-13 11:36:00 Test Item Value Reference Range Interpretation Comme nts SARS-COV2/RT-PCR (test code = Not Detected Not Detected, Negative 04453-8) SARS-COV-2 PERFORMING LAB [facility] (test code = 10144-9) BEAR (test code = BEAR) Negative results [...] of the Act. Fact Sheet for Healthcare Providers:https://www.FlxOne/Documents/Xpert%20Xpress %20SARS%20CoV-2/Fact%20Sheets /3023802%72IREZ-PNW-5%20HEAL THCARE%20PROVIDERS%20FACT%20S HEET.pdf Fact Sheet for Healthcare Patients:https://www.[employer]/Documents/Xpert%20Xpress% 20SARS%20CoV-2/Fact%20Sheets/ 3023801%62FIBE-DBI-8%20PATIE NT%20FACT%20SHEET.pdf Performing Laboratory:[address] [place], [place] [address]ARS-COV2/RT-PCR ([facility] & REF LABS)2020-02-13 11:36:00 Test Item Value Reference Range Interpretation Comments SARS-COV2/RT-PCR (test Not Detected Not Detected, Negative code = 6528646) SARS-COV-2 PERFORMING LAB [facility] (test code = 7772447) Negative results do not preclude SARS-CoV-2 infection [...] of the Act.Fact Sheet for Healthcare Pro viders:https://www.Pinocular/Documents/Xpert%20Xpress%20SARS%20CoV-2/Fact%20Sh eets/302-3802%37BGOB-SHT-6%20HEALTHCARE%20PROVIDERS%20FACT%20SHEET.pdfFact Sheet for Healthcare Patients:https://www.Meituan.com/Documents/Xpert%20Xpress%20SARS%20CoV-2/Fact%20Sheets/302-3801%20SARS-COV -2%20PATIENT%20FACT%20SHEET.pdfPerforming Laboratory:[address] [address]Ibmzxg [id number] 10:48:00 Test Item Value Reference Range Interpretation Comments Case Report (test code Surgical Pathology = 104) Report Case: [id number] Authorizing Provider: David Alfred, Collected: 01/17/2020 05:03 PM Ordering Location: [address] Received: 01/18/2020 09:09 AM Service Pathologist: Wayne Mcadams MD Specimen: Biopsy, Gastric, Random gastric bx ADDENDUM (test code = [id number] 3381) HdENKdq3yrCCBktBQdYxTi MzNcZnRuYmpcdWMxXGRlZm Ozv6ujy312rPFfj1cbUONc NzK4eVNiPXZclOWsI769e3 kxk9voerRiuIS8WDKkHXU4 CAlldcYffrH9RNjqtRUbTg W5CQfwhtTwMHeaitYjpnKq Ogm1TRPuT997DNS6hEvsn0 quWSH8CYJmNYXeNzMmHs4a wMBnG602BPHbKEVIRNSgeW w2PYUejtEhfaXrrHMAw646 B900n5sgTGJkmtRwlGcVdc guk8kpL539EMWutPIeidMc DeAdSNZdeFRefZJ6KLObGG 9wppozYAkzZYmzQCYsyrM1 DSHyiYVaM0QlYIFrOE2uoe zcLFE1DXdyZSNqGFF2MyFf TUDtd0Weddg8QiSxrv6tme 61UCK3e7LfpTccFVQ2SEN1 LuIhEb5ojLVqTKCpGN5sYi AnwLDpJKHjrf46oQbeUIpz tlMbyP2rIcSpARHbhNJeGP NaXL5seIPeJTQjnH4leuql XHBnYnJkcmhlYWRccGdicm SqAp9vyReeBUJ9UWpdR2au pU8yXhW5VUspU5dejV5vTT z3CSafkUZ6OIZqfF8hNY5n xwryz1nrVHkkXEnbIOAngl C3ifU8HCPqyVKiO1NobM1h HBKwGZ1kvfpzo2gaDID8XE dfKPRgVZN4OoNaGYFzd5Si cgw5HnHqn1FfdCWmOVmgO5 2tu618ECZrlkNvG7bzyXUe ieguzJHbflxhAYiqfxW8PS FsXHBsYWluXGYwXGZzMjBc bGFuZzEwMzNcaGljaFxmMF qaCoYaZLQtRDnqR2wjGcJw SpAsNSBDfV92ap4htGFsdj Qkf8HpqFWbaFRkEbByrLYm VPAqckEscy2yKBFwmqZdvL 2fcoJGMCMjfqXIR8EPYYzE PL5wzHPyoB== DIAGNOSIS (test code = [id number] 3220) FuZzEwMzNcZnRuYmpcdWMx QKmetsYdBGiak2PyG4JsSu AwMFxhbnNpXGRlZmxhbmcx QEUiPRN8lgDlDMTeSOasKX MnLCujWq9hlNKifNexVrOw DYMes7dwwkHCkldjgZx3f1 lnITXxGkG5bYSoZRiqR2uz pvXxcUSvJLClMNb8oA03EZ UkpQ4rtNCnQOispeAhCuE0 YFogUROzQpL1LYPekNNeAS SxR9qcGNVgNKkyUMZhKUen rPFjZAG1lYeof6W5vTYlnW WycFzlPwWxHvWcHZJBd3Gw UPj9jDccT3JeHOViMiO2gO QgUGFyYWdyYXBoIEZvbnQ7 kO10YAsroaD7tPRyb8Mqe5 8rs932bU3nvOMaNPP1LMMd RPFdoPKaJXXiSHD2SRHuiR NlN9q1NfRwgEGwY4T7CpGf lOFrW5D3BrPdoKQlD6U9Ya XmtMGeARMsjAUhRg3tpTKp cBXwtl6mer88MMR2b1ZsuK yyNJY5QTP8LfRlDn9eeXVs TQEaKE4cNrJnbBDpARXexw 83nUcdKNjcxoSpcU2iPeFy DSLtkMCoHNQpUC7cyBJcDX HxdZ1mpnlyQNIcCjLxdbgx KONtaSncllLrJz4ysYxdRJ P0SPyaQ5yqcH7bYhU2CJsx P2dmeB3tZTt7NYkdmJA5KT UfwG3cVC3eqkhwr4cnXdCz UE9nlippx1plKwMoCB6jct z4w2neGlHwNV1yoyryc1sn NzIwXGhlYWRlcnkwXGZvb3 GwetcqURHbh9BbU9JdtKgz P79xuKsuI42fZIUigHkpfU 8xrIvnsX8hHfHeLqXjYRrh bFxwbGFpblxmMVxmczIwXG suwgepCCLvDWvnG7qfMwAk AXJkpDqjSUofb2FoFQBsLD ZzMjAgUEFSVCBBIFJBTkRP ZLGXAIOIZzzUCBWEQ6PEJK pccGFyIEFOVFJBTCBBTkQg S3gLEeWOQjPSMAFPA1WeF7 xWRFUDX6FVAlSdO2bVU24Q QyBHQVNUUklUSVMuXHBhci GYZEiAEDgTMAZOY9KvNT6K YHBDHL1PRVIAENWHUWnNE9 iOVKZQXRNKYIWVXCKqYG5Y IElOVkFTSVZFIENBUkNJTk 2DHI4xnQMcRFnDRkHKEK3d D5YAGlLYYOZPUNyFYSHBId MMYTmXD88AKEGWCPVeXVVu TkVHQVRJVkUuXHBhciBJTU 5BRm6TOLKOLtSDN7StNHSH SUNPQkFDVEVSIElTIFBFTk RJTkcsIEFEREVORFVNIFJF TJ1QLWVWDqRCU7sQF5pzWL Hiax27ZLW6GiRyh5O3NXC7 WIVgDTPyq7xpMISgxJAvVu EwMzNcZnRuYmpcdWMxXGRl GjHzw2pyn642kLTyr6pxMJ JqAsO1dHPkAPOnjTGdD424 EOLvQQghk1mjz0GdQEIslA Bbo6B5TSBXqqesyAs9tFkg J85rx9Z1DlnxN7irIVUjDW RoA6KiYM6bUEEiUhc8FAA7 RVL7BBNzYLDiU3OyOC0bSV GjtARfEEm0d8zpqFehCZZg ZTE3s9dsBHsvbiChSI8qcb 1mtBs4q1asnpFtGEKzTHVk mYHIVJZiS1MywOylUn2gwH q2kLabGybyPHH2Yor7VR6h ci47qok5uZfmEKZkcqeuRt S9QUvbGLXcsspmTZx0HTcc XGUvuAC5PSSmoSVdW3VdCY DkDT1ctuu5YDQ7XHxtVQKz LzP0RJZxiLKlEUTpiMvcEJ amx116NUU2UqRxVF9tN5Bb u6Q1jD2zwKLvMPTorQBcDb ReURLpcv0edEFiLAtnv6Zy NVU3suW7iKGgoIBrJGGaDc A4KWydIS7sre67UODwEZG7 cy1tjBQagZpbttDocYEyMA nlC9EtRHMue292ZYHwB7Tv DFUou5C6oiGfYuViRMCgyA O2abH3EFMwRR4cbmval4qh GNboBFjwZCXpuxF2buK1OS SbbWSmL9NgdE8qQGNyCY9x xvdex3wdWOK2UBrmSSNbEX A5AkGaFKWgs4Rxqxo5DtCj t6XnpLSyBRmcG40oq511YZ YsehQcC2jpwCWubkycuJUj rhttXPgutqX2ZNHsIDylhd lvLZSjDRzhX5aqNeLkAYNa iUuhQQjgp3BfONQvACUyFi PfbDMzZTNkZrl0THJacPYe MBKoWzHaU0kfzkwiVgGJUJ Mdx9hjQ5sxwKPKjQPgP1Pm UGhvbmUgTGluZTogODMyLT E9FW05IJoyQRDeuw77 CPT Code(s) (test code f9indAFuOKVwnDIeTdSsRC = 3357) KcECEmb5stQHMkwWMsFtBm MzNcZnRuYmpcdWMxXGRlZm Lae1nwd184kWFou2jpPBXv KjG7wXBxEPXssKHwO417c2 yxd2uljyRqdOZ1MKIyVSV0 ISefihJmizN1JOsesNMtQt T1WBrvorYaNEighpUlfnTa Xsy5ETCnT921ZVY6rYynz8 gkJMF8AZHpXJPpPwUbGy0m lPVtM913VHIlOWBGPJJgrB o2KURiqsUfptMtyFGBh257 K217m0odFVKhrrFdnUmNbo omb7dgD531AGVsqHYytzRl OkZnRLEhpTYwvQZ2MCTmTE 9dlkftCsPmQC5rsbpkXpMe IR4gmqr3QzClWS1rggswKg IeRLbhPPHxwabcQDSwg5Xb orbyOU3wE3Qmw8F1yO9nwK HhVAKkfRTsTxHhOZDhbe0x mHFmKKfqt6EvVKL7xtD1qE BhtAUmTMYuTK87Fojrl4Et SinyGMQ1TSUotrUza3Fkc1 ohJtAehkSzK5fkE7DfECKl QJQlZEAnVaZuzwBmh5Wok6 KvsCPffCs1t7qaIMJxFHKm nXkqs7ogVTM0WQNeI6A7cL Oaw5byYIrkDKCahGF2ghsz YZlcMRNmyyR7ewjjBKwpCU DnlCG5wlcnPHcuBUWhFzV0 vxrmWYorQREeJHE7EMrbc0 10ZGN2IGmaPhubBLbnKHFh bmNvbnRccGduZGVjXHBsYW luXHBsYWluXGYwXGZzMjRc sEezpMsafG3vTiGmIqGiEK okNK9uWZQoI6rcbXXlHVNm ZLKcK8bqFhOqrP8zwLhgMY ikdvYuTGn0MaN2YLR6LCVp MiwgODgzNDJccGFyfQ== CLINICAL HISTORY (test y9wjxOPeMKIuxRQoOuKlIR code = 3356) KpVLZyf5awPIYlcQXxEzQu MzNcZnRuYmpcdWMxXGRlZm Keh8iqz536iXTqt2cnSSBp XuA4qYKzBBJuiJKiQ419KH FpDCsca5hed5SiFRVirKOr j0A1ROJOqfkpzVn4aUrxO9 8pf0V9RmecF2ljMSVxDSMx V7OtWF9gZANvRgn8QPG2LA C8OKPrJBClV5OgIY6aORLk qNAgNVs1p0jogYwqOGRkOU M1j4hvSOhtllCiYE3kkq5b uHi0x2yvciZuTJTnYOFbjF JUZCLcI1NihKrkKl0byXp1 xXmpXibzSAW9Sxp6JC9bzb 89ftb3lDbhXDIjztqtVnN9 XKlqJPEqrgyyKBf1ZAbePY JnbDcyMFxtYXJncjcyMFxt YXJndDcyMFxtYXJnYjcyMF ceQZYrDBJ2BLtit686CXV6 XBcii6ntf1pcgAJrQpq7LU BiHuJyNwkpXWpqk6Aus5vy ZZKukz2yTJR6bCDopPswc2 X0yQHrTFBsgTIhgpOxIMZs EcM3TQbfFE2pdz08XNWtYQ N2ln3meNMesRmwsxNbbFLf KHfeE2LfXBLhc995DAMwZ3 AjZOEfv3I1kuViFjRhOTXd cWU6bfA9RSFzMRg4mGQsru U5unUoeAPfQ4ncfE36BhOq sNUfI4GljE69CjTfrMGzN3 MheN34KqVqjSXgD1ImtK26 FjTsmFSlTLUtfPCrHx2crD XdjIXbm9WrpLNpARneL05b w214HHQrrcKcG1aasBKioi qikASnqqvcJWgkvnP2SWx8 cnBhclxxbFxwbGFpblxmMV xmczIwXGxhbmcxMDMzXGhp W0xqFqNmLMNoqLgiUJisu9 ApKQQpICFgCnRsC2zaJjsC RURccGFyfQ== SPECIMEN SOURCE (test a4gifSTwTXVtoBXnKrMnNJ code = 3377) PjWQGeu7qdAKKhoBEzOuJv MzNcZnRuYmpcdWMxXGRlZm Jhy9urq519fRSbw8omCXJg JeQ8hXVeASWwoNKtK641x9 nxa6hwlzKugAT9OJAnAQG7 ITybznMudrT3VUfxqYJgQc O6HDbqgrAuHMewirShlcEk Gpp1PJThW643PRI6fDlvb3 ngZMB5RJJdDDOwYoKyPh8i gVRqN680EREvVYFMGJDtzQ l9TDVkvcZjwdBisZSVo729 B633b5xrEZHkiaTquMfXqa rix5nbE774UWZsiJQvrkEm EsAzOPJikAXwtQO0TSEpWW 2lazppYjUvKY3dbtriGaAp YI5phhm0FuErNM1syfdwFa PjATbxXWBlnjiwAHWwv2Zx pgyfDB0dU3Sgo2L0pW1bqV RsMXUveNItHdYbYWUplf9l uTJbKKyjo5NnWNG2vdQ8uF GvkCQdOADpMM60Vehkw7Rm PjcpWOR7SACufmRhw2Epg3 mqUcPwptMwR4keN3OsJFXn JZNpJGCjVdHkrxXha4Lpf9 EoeFEmsEm4l1nuENTyWQTk iCyfb9ulBTO4XFVhO5P2aZ Uqa2jrTJisZJMouZT1noqz QImvHEAaplT7hyusNQglUG RdeFD6ewpfEYnzPXDqEuT7 uhrpKBkdGCRoPUT3IDcrv6 06XOF1LVyrKshzVWowTQBm bmNvbnRccGduZGVjXHBsYW luXHBsYWluXGYwXGZzMjRc uRdwfAfzkP9fSwFaIkDdPC noNZ6bGSJvQ7ifiHBsDCBq YVScZ4evPxYvhZ1lyBokXD brmpTcXTxcp9EwlTHwVjhd sZL4CZOoey8= GROSS DESCRIPTION (test i6izoOOqYSRojGMfByDdYV code = 3366) TkOYJbi2bmWLCwwMPlSpQn MzNcZnRuYmpcdWMxXGRlZm Fex1fdp271eDFnk2tjUPRe NuR7uSAsVDRorBNmZ412g1 ebd6mzspMcgSJ8RPEpDSD8 TVoocmAfnrQ9KKmlcJPiWa O0HBkenoXgHOtkbzSxmbZm Jnv6VWQlX360AHY0vSfth1 sfQYC0EVMjCQOtOoJaXb5a rBQkT851WDTbHFCDDZOxzT u2FEEnjqSdgvSlfSDIp546 C850f8kcPLKbfhPbuBcVwp riz3cxN030MCFfwMRcsvRq DaPtVAMztFCezOU7VASbQK 6kwqpbQvIgFG1gudmlHtLw DA8hjdp9UaVxYQ4fournYe ZiMKecGBVrcbbrFDExu7Lf qpdrOZ7wU1Gly6H4nX5qnX YlQORemLYsBlIpDKAaxz6t eZPgDLwqm5IjDMX7cbT9aH InjSWwRONsJT16Etndm9Ro SimpWVI8GZByieKkk6Rbk8 znCqMowyUpL9txX8QtDQCm SOFyXXEeVeKaxxTpo1Dsg6 NntQZfoUh0n5wdYWQdLTNc bVkwk7rrXWR7JUNwJ4Z7eN Kmx9cpIInyRVJfpLK4qkcq OKmcIQOzzrP7iejeMGupAH RksKY5aogdVItaZDOnQhT8 bfmoIHuzBACjXGX6FBrfh2 21OWM6UHycYonpRTtnZTMx bmNvbnRccGduZGVjXHBsYW luXHBsYWluXGYwXGZzMjRc cUutfQwudV5sAoKtJqMuSH yvPE0oPIEzW3ladMNjMMVd YTDzH4obQcHgaA6weHtgWO tkapZnYLSfB7RjzfThVKed FGNive5kaYbdTPgdBiOkXG Hcf5w2jRS5vTEomHO9xAId cKvwLS0omBAcIWPmB6Bns2 ewnpBdsW6mGDPpBG8eTLPr HAG9wgfmQQDdt5TucCOqDO JlIDMgdGFuLXBpbmsgdGlz m0SeZBXwPWzxMG88jiKnJK PvgGYfbuaodGYdpO2tIB3y YMHzLTkiNMeuPAM0MNM0OH JeoBRuj4vrclN7qYonqBDo xkZoCwbmuQMvZEXgCZ5aTQ K0Fu2jcTKlRTPhnjK9w5Bm IGluIEExLlxwYXJccGFyIF VyrYPaSRNnZ5IycChnzkah JQUzUMUAF8DdI27lcSSwaE == MICROSCOPIC DESCRIPTION o1goiDRiHXTggRDpPqMwNR (test code = 3371) NbQCAmo8ovXQLstKKtBkLr MzNcZnRuYmpcdWMxXGRlZm Ldj1ufj505uPToj8cwAHWm EvC6rRWtUPKhxCIvW324r5 rax1gtlhGnwAZ8AAXeEYE1 KVtbqwNlupE4HJrmyFGuGa H4XFywjiKxLRcsyjRskbLi Bue1IJZlW468XDW2lXbsk5 xoKFK5EJEnCDOiXkVnTz1s jPUnY060RGZvEETDFXWzlT q8DUEiudUqstCfrKTXk154 U146h0zbEYUxwlCauPxHoi xzl5ntA567HPNbcQJxvzGx CxFnAAAbjSWvtZE9VBNyQX 2yytwoLhTtHV3aowmfVmXh YQ9wmhv5EmKxYU7eopjrEe VpHPrdAZOuahuoYNOnp2Qp mztnNQ7dF3Viz2N0pB3yzA FmCTYvgCJtHoIgLCMzzq6w eZEfDSnlz8XrQGA1ucO9tG PsnQNfIFNxSF24Agdsc7Xw YnrdTWV0KAFmvuOgh2Gda5 eaStNbwsDlY9dkU7LhVSPj BOUwTMLrWzEirjJlw6Bep2 ZyzNAyzAe0a6pdLMOlFOTo jPsfj3peAOF4MKZyN3U5fC Bfi3lvNQayWVTibUX7khkh DTayTFPfwpZ9nznnPCrgPX NorVJ6xfkpZBodGBEoQhU9 mtfgTEozNTUfGUV5KIvbd9 07ERF2DHbwNqdqAOotABYo bmNvbnRccGduZGVjXHBsYW luXHBsYWluXGYwXGZzMjRc uXzboRcgyP8pSgPsDhAaKZ ngOB3uOSSfA0odjDMvLBFw ZMUwV2ogHfEykH8awAjsJH lwxgDzYHQKGvRUXo4WYD3i cGFyfQ== SPECIAL STUDIES (test o0hanOPjCZEoyGTsDbRtER code = 3376) MrTMIbe7zyLGRnjOJsUkZe MzNcZnRuYmpcdWMxXGRlZm Kfm6jua857eSIqx8fqASQr TkH6lNWfAEGcmCVgA844WO SxNUvbv6nga5EqIWYkmXKt k4C8BYUNMIxaYlRbO313QL YuSDret9sih6ZdCGNmqOJx g6W7FAGXdcjrtOk0iBduJ6 3kd2K3GypxY0xmMSBdWRMb C0JdGD6wLITjTvj1PGH2VR Q2CCTvOLAxF8CyBC9xIVAh dSEvTAe9q6qyuIowIDPkTN G0p7frWMzvzpW7KD7vvb5q qDa8t8rwrfRiUNQuQWOatU QKSKHjR6WcwTyzFw6ygHe9 g6tlLpsemaI6vVGiLfZmEv MyMFxsaTBccmkwIENvUGF0 iVAHUNi1S694h8xtYSJtpl GoeAyLxqovk8wnI917ATPz cGVydzEyMjQwXHBhcGVyaD B5BAJnEM7sludoNdZcOH6d metbNwWzFX1rlwm6RrRjYY 1hcmdiNzIwXGhlYWRlcnkw BGVcx5BikohdBJ3rF7Olm3 M9aU1pkJEkOSDcwETjPxIo XPDbvf3skVWzRFiqVYO4HJ OgfcNxv0Dzh5rqYuVvzhZw S3dcH8DrXFZxIWQcAYEvDo FgxyLdn5Kmi3NptXJvhFo8 g7ytFTGlGMOhmWhdp7xrIQ E0ZFItZ9U5oOQav9qwDFvc TMRhpCW4mtdkKBqmCPPfrv L7ygcqBHklFSGieDA2zleg LApsBUKrHiS0kfuqJErrSZ InRAZ5VUblm199OYI1FPvh YmtwYWdlXHBnbmNvbnRccG duZGVjXHBsYWluXHBsYWlu XGYwXGZzMjRccWxccGxhaW 2bEdFwRyEwQuajHI3hJOKs Q9rlkBInZZHyXFFnQ5mjJl PvhH7utRfxPXpoEwMpObAe JlGVuAVapT40HXLaezP8PU Llf99gx3CewRtolnAbONSt FYvmU0v6TRWfVEGyGER3z9 Biz4UkjT6acL4yeFazlT2y cWQkoWS1yjsoq4Hww6SlA4 lhbCBzdGFpbnMuXHBsYWlu XGYxXGZzMjJcbGFuZzEwMz NcaGljaFxmMVxkYmNoXGYx KMmqO7qtQyStR3PnAXNwCn GioMUyY3bglBJpRDGiUEfv XGYxXGZzMjJcbGFuZzEwMz NcaGljaFxmMVxkYmNoXGYx JBkhL5brMyRtG0GrIYAkCa YaGskZH6bwXFEmYGyURiJZ KE8dV1VGUnEFNQUIYAhOH6 3QEVHHZLCqNJ4TSR3TG3RI AN9zPVNgEYjkIIJiEQRrYd JcbGFuZzEwMzNcaGljaFxm QWjtCqGgPYWbEMveM4koFw ExR3TtAWPbYjMcgPPjY8sy cGFyXHBsYWluXGYxXGZzMj JcbGFuZzEwMzNcaGljaFxm VGaoWdOlSDJyJQejD1rdLa ApN3CuUAKbDzKzE04khLMb bCBTbGlkZXMgRXhhbWluZW O4EKYIkp2fd5ZjFJJlwu07 euZuo1YjbWq7NYGca091ld 0vsmG2XAReDYX1FRm0LWMe EQGrvT3aBmZ3jSSiHXAzAU W5PER1HEElx3A0PW0rSKIi PZFtSJZalpWur6ymz0lmQQ RdXGI3phJplM3oR3KmGFXb k2QcbKmcIJOazMzhwgOqRO IepWIuLYOitY59ZLFcwKXq uVLzDRZhZOH6SHnniE7rVj DRdvAmur8dkSCtq3AzvRc4 ZSBhbmQgbmVnYXRpdmUgY2 9meKKevJXwk4swvxShobKq pCXoeOBaCXKhPEI3YBp5WO RlZFxwbGFpblxmMVxmczIy GZwexyevJLHzUZdbM3utWb VlUWVmgTcgEAxoz1TpIRAp LIBzPljgbyYvYPy3iiWjAO BhclxwbGFpblxmMVxmczIy TMewligvRGWzABlhH2jjVu FtVQMftTnhEGcjg0JoYMHe XGNmMlxmczIyICBccGxhaW 7xBnEnWcQzJfmzJD2gGWSk Q4gmwFEfORJbOTFsL9uzUa OaxZ3hzVnbUXqyEwKmVpTl MlxsdHJjaFxwYXJccGxhaW 8bEnEfHkIoCqhyCP5iGGCu J0aonISqMRKzJMHrN7obVw RwnB8noLlbTHwvZdJjGhIa DdOXiP37bx6odVL3v5DzGZ 6qp4BggSQ5OHSosavlVKgl zWIvcXnjDiE6JBEccQYjTq 9pkHTzGLT8RYQqpAjnfvOZ mU2xKZAvKTzcjTOxkuyyBP xmczIyXGxhbmcxMDMzXGhp P0umAdDmPPYnuTpjKUuoy1 NoXGYxXGNmMlxmczIyXHU4 IdU2PWmmBIBgrUaqzJ5gMg QnKrHmThgnXF8bCEToA4hi oJQzAQYhOUDjM0wjAvFysP 9jaFxmMVxjZjJcZnMyMiBz VW5gEAbhDSpmL6ZjtYCkZI DOUWRqh5peW8luQTYgb1Xw jE6pfWQ7jHDqHDWjjXI9NY OhFUM1MJgqaXGnPEHxRERe eBEwpUYiUl7ayMKcG1QvQ5 kmbcTiiSUyoRP9kXPrWFwb uyRnACF8UVSklA0mTI7lPT NptVFsRY4mgZXsFKIxYREh SBTsVHQcm4ApNTAhmi04EK EcLeoepOqpUVWbWz3oSx3e YSSibhQgAIT2MxKHWW1kta xvlCUycLybgr7pBVeoXDLZ WBTdBTUaXIF5CZNtxJ6jVJ A0bOF7UGY4M8ioH3pyVDBe ubIlZB6cABBmhBKnuwXfAB ucZP6ivYZyJDGlv5Xkomkw LLVxXOI7NZU2ETewTRPeIU QmHz3hXRQivB4wL8SaMFF1 gjQco2QhHiHFeTAcnI30zU Fwmd92AQPbRYSpN8RmVDZv IGFzIGludmVzdGlnYXRpb2 3nzCFdxlHfm1KwqjEgTTFo U5dqZLYkdSKtsOOja4GfcJ 7szTIwukSqRSC3nPVbQWRo wG9xKJTyaYwbIYXznT9pD9 TsZQjlOl7hGFUcpeyfBT0z ke90PI5jxlBrRZ1nthGvMY 20hvGdPvNnXGd2FFkLVJmN KWq0QMCzxhMnsBXueCJiEF QoaN0ecRVfUb4ijWWccUgc VYNiuSNbEVakvSghS5rovq moGAkwxCCkm9CkiU8gwPI0 NUQ0gC8eShoqsFMzwzuxPj xmczIyXGxhbmcxMDMzXGhp I7knHoEiJQJwvLawPjlhc4 NoXGYyXGZzMjJccGFyXHBh fzQyfJsiwM8fJgMgPyWuRS ikdVMnvhzaKkslhuL3VMUi cn0= Gross assessment was [facility] performed at ([facility], = 2777) Department of Pathology, [address] [place] [address], Technical component was [facility] performed at ([facility], = 2778) Department of Pathology, [address] [place] [address], Professional component [facility] was performed at ([facility], code = 2779) Department of Pathology, [address] [place] [address], [facility] Hospital[facility] [id number] 10:48:00Surgical Pathology Report Case: [id number] Authorizing Provider: David Alfred, Collected: 01/17/2020 05:03 PM OrderingLocation: [address] Received: 01/18/2020 09:09 AM Service Pathologist: [...] REPORT TO FOLLOW.Signing Pathologist Direct Phone Line: [phone] signed by Wayne Mcadams MD on 01/18/2020 at 4:47 [id number], [id number], [id number] BLEEDGastric biopsyReceived in formalin labeled withthe patient's name, accession number and "gastric biopsy" are 3 fam-pink tissue fragments measuring up to 0.3 cm in greatest dimension which are filtered and submitted in toto in A1.MARYLIN Augustin ([facility])cmPERFORMED.The interpretation of this case included the use of immunohistochemistry or special stains.BLOCK A1- WARTHIN STARRY, HELICOBACTER IMMUNOSTAIN.Control Slides Examined: In-house known positive controls were evaluated along with the test tissue. These control slides run alongside of the patients sample show appropriate staining. Internal positive and negative controls when available are evaluated Immunohistochemistry technical testing was performed at [facility], Pathology Laboratory where it was developed [...] qualified to perform high complexity clinical laboratory testing.[facility], Department of Pathology, [address] [place] [address], [facility], [address] [place] [address], [facility], Department of Pathology, [address] [place], [place] [address], Optpls doppler arm, right 2020-01-19 11:48:48Ejection FractionSLE ECHO [...] Date of Study 01/18/2020 Age 74 VisitNumber [id number] Gender Male Accession Number [id number] Date of 1945 Referring Thao Baker Room Number 1023 Physician 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 ESTIMATED GFR I S NOT APPLICABLE FOR DIALYSIS PATIENTS. BEAR (test code = BEAR) Retina Subspecialist ID - AYAZ W Lab Interpretation Abnormal (test code = 76722-1) [facility] HospitalMagnesium2020-06-16 04:55:00 Test Item Value Reference Range Interpretation Comments Magnesium (test code = 2.2 mg/dL 1.6-2.6 53462-1) BEAR (test code = BEAR) Retina Subspecialist ID Jose JACOME W Lab Interpretation (test Normal code = 65902-2) [facility]NESIUM2020-06-16 04:55:00 Test Item Value Reference Range Interpretation Comments MAGNESIUM (BEAKER) (test code = 2.2 mg/dL 1.6-2.6 627) Retina Subspecialist ID Jose JACOME WBASIC METABOLIC [id number] 04:55:00 Test Item Value Reference Range Interpretation [...] S NOT APPLICABLE FOR DIALYSIS PATIEN TS. Retina Subspecialist ID Jose JACOME WCBC with platelet count + automated [id number] 04:31:00 Test Item Value Reference Range Interpretation [...] 450 K/CU MM MPV (test code = 84992-3) 11.9 fL 9.4-12.4 nRBC (test code = [...] 2801) Lab Interpretation (test code = Abnormal 98133-9) [facility] W/PLT COUNT & AUTO [id number] 04:31:00 Test Item Value Reference Range Interpretation [...] PERCENT (BEAKER) (test code = 2801) Prothrombin time/[id number] 04:30:00 Test Item Value Reference Range Interpretation [...] valves. Lab Interpretation Abnormal (test code = 32002-4) [facility] HospitalPROTHROMBIN TIME/[id number] 04:30:00 Test Item Value Reference Range Interpretation [...] for patients wiht mechanical heart valves.Prepare Leuko-Red [id number] 23:54:00 Test Item Value Reference Range Interpretation Comments CROSSMATCH (test code = 2264) COMPATIBLE Unit ABO (test code = B Pos 2577241) UNIT NUMBER (test code = [id number] 934-0) Status (test code = 8324090) TX_TIMEINCHART Blood Bank Product (test code RED BLOOD CELLS = 2263) PRODUCT CODE (test code = [id number] 933-2) [facility] HospitalECG 12 [id number] 10:52:57Interface, External Ris In - 01/18/2020 10:53 AM CDTVentricular Rate 84 BPMAtrial Rate 84 BPMP-R Interval 228 msQRS Duration 86 msQ-T Interval 414 msQTC Calculation(Bazett) 489 msP Phoenix 89 degreesR Phoenix 40 degreesT Phoenix 35 degreesSinus rhythm with 1st degree A-V blockNonspecific ST abnormalityProlonged QTAbnormal ECGNo previous ECGs availableConfirmed by MD HARRIETT, ROULA ([id number]) on 01/18/2020 10:52:55 AM [facility] HospitalMAGNESIUM2020-06-15 05:53:00 Test Item Value Reference Range Interpretation Comments MAGNESIUM (BEAKER) (test code = 2.4 mg/dL 1.6-2.6 627) Retina Subspecialist ID - PIAYA LBASIC METABOLIC [id number] 05:53:00 Test Item Value Reference Range Interpretation [...] S NOT APPLICABLE FOR DIALYSIS PATIEN TS. Retina Subspecialist ID - PIAYA LPROTHROMBIN TIME/[id number] 05:26:00 Test Item Value Reference Range Interpretation [...] mechanical heart valves.CBC W/PLT COUNT & AUTO [id number] 05:15:00 Test Item Value Reference Range Interpretation [...] = 2801) CBC W/PLT COUNT & AUTO [id number] 12:38:00 Test Item Value Reference Range Interpretation [...] (BEAKER) (test code = 2801) Hemoglobin and [id number] 05:57:00 Test Item Value Reference Range Interpretation Comments Hemoglobin (test code = 6.2 13.7- 17.5 GM/DL L 786-4) Hematocrit (test code = 19.3 % 40.1-51 L 4544-3) BEAR (test code = BAER) Retina Subspecialist ID - [id number] Lab Interpretation (test Abnormal code = 49567-1) [facility] HospitalHEMOGLOBIN AND [id number] 05:57:00 Test Item Value Reference Range Interpretation Comments HEMOGLOBIN (BEAKER) (test code = 6.2 GM/DL 13.7-17.5 L 410) HEMATOCRIT (BEAKER) (test code = 19.3 % 40.1-51.0 L 411) Retina Subspecialist ID - [id number] B12 and [id number] 05:35:00 Test Item Value Reference Range Interpretation Comments Vitamin B12 (test code = >2000 213-816 H 2132-9) Folate (test code = 14.20 ng/mL >=7.00 2284-8) BEAR (test code = BEAR) Retina Subspecialist ID - PIAYA L Lab Interpretation (test Abnormal code = 62845-3) [facility] HospitalVITAMIN B12 AND [id number] 05:35:00 Test Item Value Reference Range Interpretation Comments VITAMIN B12 (BEAKER) (test code = > pg/mL 213-816 H 774) FOLATE (BEAKER) (test code = 362) 14.20 ng/mL >=7.00 Retina Subspecialist ID - MARVA [id number] 05:27:00 Test Item Value Reference Range Interpretation Comments Ferritin (test code = 947.60 ng/mL 5-275 H 2276-4) BEAR (test code = BEAR) Retina Subspecialist ID - PIAYA L Lab Interpretation (test Abnormal code = 40220-0) [facility] HospitalFERRITIN2020-06-14 05:27:00 Test Item Value Reference Range Interpretation Comments FERRITIN (BEAKER) (test code = 947.60 ng/mL 5.00-275.00 H 361) Retina Subspecialist ID - MARVA LHEMOGLOBIN AND [id number] 03:47:00 Test Item Value Reference Range Interpretation Comments HEMOGLOBIN (BEAKER) (test code = 5.3 GM/DL 13.7-17.5 LL 410) HEMATOCRIT (BEAKER) (test code = 16.1 % 40.1-51.0 L 411) Retina Subspecialist ID - [id number] TIME/[id number] 03:38:00 Test Item Value Reference Range Interpretation [...] INR is2.5-3.5 for patients wiht mechanical heart valves.Yrsqubtjgjk5519-98-01 02:11:00 Test Item Value Reference Range Interpretation Comments Haptoglobin (test code = 277 mg/dL 14-258 H 4542-7) BEAR (test code = BEAR) Retina Subspecialist ID - MARVA L Lab Interpretation (test Abnormal code = 68872-0) [facility] HospitalHAPTOGLOBIN2020-06-14 02:11:00 Test Item Value Reference Range Interpretation Comments HAPTOGLOBIN (BEAKER) (test code = 277 mg/dL 14-258 H 366) Retina Subspecialist ID - MARVA Kurt, TIBC, % sat. (without ferritin)2020-01-17 02:10:00 Test Item Value Reference Range Interpretation Comments Iron (test code = 2498-4) 38.0 ug/dL 40-160 L TIBC (test code = 2500-7) 151 ug/dL 250-450 L Iron % Saturation (test 25 % 20-55 code = 2502-3) BEAR (test code = BEAR) Retina Subspecialist ID - MARVA L Lab Interpretation (test Abnormal code = 89137-8) [facility] HospitalIRON, TIBC, % SAT. (WITHOUT FERRITIN)2020-01-17 02:10:00 Test Item Value Reference Range Interpretation Comments IRON (BEAKER) (test code = 547) 38.0 ug/dL 40.0-160.0 L TOTAL IRON BINDING CAPACITY 151 ug/dL 250-450 L (BEAKER) (test code = 769) IRON % SATURATION (2) (BEAKER) 25 % 20-55 (test code = 2590) Retina Subspecialist ELVIRA DURHAM KRISTEN, [id number] 02:00:00 Test Item Value Reference Range Interpretation Comments ABO Grouping (test code = 2588) B Rh Factor (test code = 2589) POS [facility] HospitalType and screen, [id number] 01:59:00 Test Item Value Reference Range Interpretation Comments ABO/RH AUTOMATED (BEAKER) (test B POSITIVE code = 2260) Ab Scrn (test code = 890-4) NEGATIVE [facility] HospitalHepatic function [id number] 01:50:00 Test Item Value Reference Range Interpretation Comments Protein, Total (test code 5.8 6.0- 8.3 gm/dL L = 2885-2) Albumin (test code = 2.7 g/dL 3.5-5 L 83209-3) Total Bilirubin (test code 0.6 mg/dL 0.2-1.2 = 1975-2) Bilirubin, Direct (test 0.4 mg/dL 0.1-0.5 code = 1968-7) Alkaline Phosphatase (test 71 U/L 40-150 code = 6768-6) AST (test code = 1920-8) 40 U/L 5-34 H ALT (test code = 1742-6) 26 U/L 6-55 BEAR (test code = BEAR) Retina Subspecialist ELVIRA DURHAM L Lab Interpretation (test Abnormal code = 53029-5) [facility] HospitalLactate dehydrogenase (LDH)2020-01-17 01:50:00 Test Item Value Reference Range Interpretation Comments LDH (test code = 2532-0) 484 U/L 125-220 H BEAR (test code = BEAR) Retina Subspecialist ELVIRA DURHAM L Lab Interpretation (test Abnormal code = 96695-9) [facility] HospitalMAGNESIUM2020-06-14 01:50:00 Test Item Value Reference Range Interpretation Comments MAGNESIUM (BEAKER) (test code = 2.4 mg/dL 1.6-2.6 627) Retina Subspecialist ELVIRA DURHAM LBASIC METABOLIC [id number] 01:50:00 Test Item Value Reference Range Interpretation [...] S NOT APPLICABLE FOR DIALYSIS PATIEN TS. Retina Subspecialist ID - MARVA LHEPATIC FUNCTION [id number] 01:50:00 Test Item Value Reference Range Interpretation [...] (test code = 26 U/L 6-55 347) Retina Subspecialist ID - MARVA LLACTATE DEHYDROGENASE (LDH)2020-01-17 01:50:00 Test Item Value Reference Range Interpretation Comments LACTATE DEHYDROGENASE (BEAKER) (test 484 U/L 125-220 H code = 635) Retina Subspecialist ID - MARVA LSARS-COV2/RT-PCR ([facility])2020-01-17 01:38:00 Test Item Value Reference Range Interpretation Comments SARS-COV2/RT-PCR (test Not Detected Not Detected, Negative code = 9657235) SARS-COV-2 PERFORMING LAB [facility] (test code = 5918376) Negative results do not preclude SARS-CoV-2 infection [...] of the Act.Fact Sheet for Healthcare Pro viders:https://www.Pinocular/Documents/Xpert%20Xpress%20SARS%20CoV-2/Fact%20Sh eets/302-3802%63NKKY-UNR-3%20HEALTHCARE%20PROVIDERS%20FACT%20SHEET.pdfFact Sheet for Healthcare Patients:https://www.Meituan.com/Documents/Xpert%20Xpress%20SARS%20CoV-2/Fact%20Sheets/3023801%20SARS-COV -2%20PATIENT%20FACT%20SHEET.pdfPerforming Laboratory:[facility], [place] [address]VY/[id number] 01:24:00 Test Item Value Reference Range Interpretation Comments Protime (test code = 16.5 11.9- 14.2 H 5902-2) seconds INR (test code = 1.4 <=5.9 6301-6) PTT (test code = 31.0 22.5- 36.0 06782-8) seconds BEAR (test code = BEAR) Effective 12/31/2018: PT Reference Range ChangeNew: 11.9-14.2 Previous: 11.7-14.7 RECOMMENDED COUMADIN/WARFARIN INR THERAPY RANGESSTANDARD DOSE: 2.0-3.0 Includes: PROPHYLAXIS for venous thrombosis, systemic embolization; TREATMENT for venous thrombosis and/or pulmonary embolus.HIGH RISK: Target INR is 2.5-3.5 for patients wiht mechanical heart valves. Lab Interpretation Abnormal (test code = 76084-9) [facility] HospitalPT/[id number] 01:24:00 Test Item Value Reference Range Interpretation [...] is2.5-3.5 for patients wiht mechanical heart valves.Reticulocyte [id number] 01:20:00 Test Item Value Reference Range Interpretation Comments % Retic (test code = 4.9 % 0.5-1.8 H 74672-6) BEAR (test code = BEAR) Retina Subspecialist ID - [id number] Lab Interpretation (test Abnormal code = 95238-2) [facility] HospitalCBC W/PLT COUNT & AUTO [id number] 01:20:00 Test Item Value Reference Range Interpretation [...] PERCENT (BEAKER) (test code = 2801) RETICULOCYTE [id number] 01:20:00 Test Item Value Reference Range Interpretation Comments RETICULOCYTE COUNT PCT (BEAKER) (test 4.9 % 0.5-1.8 H code = 575) Retina Subspecialist ID - [id number]
[2020-03-07] MEDS ORDERED: NA CHLORIDE 0.9% 1,000 ML ONE (17:25)
[2020-03-07 17:28] LABS: Absolute Lymphocytes (CBC) 0.1 K/uL (0.7-4.9); Hematocrit 23.1 % (39.6-49.0); Lymphocytes % 80.6 % (15.3-44.8); MPV 8.5 fL (7.6-11.3); RBC Red Blood Cell Count 2.72 M/uL (4.33-5.43)
[2020-03-07 17:31] LABS: Protime INR 1.25
[2020-03-07 17:33] LABS: Urine Bacteria <20 /HPF (NONE SEEN); Urine RBC <5 /HPF (NONE SEEN)
[2020-03-07 17:33] LABS: Urine Blood NEGATIVE (NEG); Urine Glucose NEGATIVE (NEG); Urine Protein 1+ (NEG); Urine pH 6.5 (5.0-7.0)
[2020-03-07 17:34] LABS: Urine Amorphous Sediment 3+ /HPF (NONE SEEN); Urine Culture Reflex Order NOT NEEDED; Urine Mucus 4+ /HPF (NONE SEEN)
--- NOTE | 2020-03-07 17:35 | RAD REPORT ---
EXAM DESCRIPTION: Teto Single View03/07/2020 5:25 pm CLINICAL HISTORY: Shortness of breath COMPARISON: February 28 FINDINGS: The lungs appear clear of acute infiltrate. The heart is normal size. Small bilateral pleural effusions. A central venous line in place
[2020-03-07 17:50] LABS: ALT/SGPT 27 U/L (12-78); AST/SGOT 27 U/L (15-37); Albumin 2.5 g/dL (3.4-5.0); Alkaline Phosphatase 113 U/L (45-117); BUN Blood Urea Nitrogen 21 mg/dL (7-18); Bicarbonate 23 mmol/L (21-32); Bilirubin Direct 1.3 mg/dL (0-0.2); Bilirubin Total 2.1 mg/dL (0.2-1.0); Creatine Phosphokinase 91 U/L (39-308); Glucose Level 140 mg/dL (74-106); Lipase 69 U/L (73-393); Potassium 3.9 mmol/L (3.5-5.1); Protein, Total 5.5 g/dL (6.4-8.2); Sodium Level 136 mmol/L (136-145); Troponin (Emerg Dept Use Only) < 0.02 ng/mL (0.0-0.045)
--- NOTE | 2020-03-07 18:09 | ER ---
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 Last Session 3 weeks ago. Had an appointment today with Dr. Benjamin, Systolic BP 77, HR 144. Sent here to the ER by Dr. Benjamin. Reports weakness. Denies pain at this time. Coronavirus screen: Client denies travel out of the [place] in the last 14 days. At this time, the client does not indicate any symptoms associated with coronavirus-19. Ebola Screen: Patient negative for fever greater than or equal to 101.5 degrees Fahrenheit, and additional compatible Ebola Virus Disease symptoms Patient denies exposure to infectious person. Patient denies travel to an Ebola-affected area in the 21 days before illness onset. No symptoms or risks identified at this time. Risk Assessment: Do you want to hurt yourself or someone else? Patient reports no desire to harm self or others. Onset of symptoms was March 07, 2020. 15:49 Method Of Arrival: Wheelchair ca1 15:49 Acuity: ELLIOTT 2 ca1 Triage Assessment: 16:03 General: Appears in no apparent distress. comfortable, Behavior is calm, cooperative, bp appropriate for age. Pain: Denies pain. EENT: No deficits noted. Neuro: No deficits noted. Cardiovascular: No deficits noted. Respiratory: No deficits noted. GI: No deficits noted. : No deficits noted. Derm: No deficits noted. Musculoskeletal: Swelling present in right arm, left arm, right leg and left leg. Historical: - Allergies: 15:54 Amoxicillin; ca1 - PMHx: 15:54 Hypertension; lymphoma; Atrial Fib; ca1 - Immunization history:: Adult Immunizations up to date. - Social history:: Smoking status: Patient denies any tobacco usage or history of. Screenin:11 Abuse screen: Denies threats or abuse. Denies injuries from another. Nutritional bp screening: No deficits noted. Tuberculosis screening: No symptoms or risk factors identified. Fall Risk None identified. Assessment: 16:06 General: SEE TRIAGE NOTE. bp 17:20 Reassessment: ALL CURRENT ORDERS COMPLETED, RESULTS PENDING. VS STABLE ON MONITOR. bp 19:00 Reassessment: Patient and/or family updated on plan of care and expected duration. Pain jb4 level reassessed. Patient is alert, oriented x 3, equal unlabored respirations, skin warm/dry/pink. PT is resting in bed watching TV. No s/s of pain or distress noted at this time. Respirations are even and unlabored. 20:00 Reassessment: Pt is resting in bed comfortably. Given extra warm blanket per request. jb4 Respirations are even and unlabored. No s/s of pain or distress noted. Attempted to call report. on hold for 6 minutes, instructed to wait for call back. 20:44 Reassessment: Patient and/or family updated on plan of care and expected duration. Pain jb4 level reassessed. Patient is alert, oriented x 3, equal unlabored respirations, skin warm/dry/pink. Pt transferred upstairs to room 215 via stretcher. Vital Signs: 15:49 BP 89 / 57; Pulse 139; Resp 20; Temp 97.8(O); Pulse Ox 99% on R/A; Weight 95.25 kg (R); ca1 Height 6 ft. (182.88 cm) (R); 16:11 BP 110 / 67; Pulse 101; Resp 27; Pulse Ox 100% ; bp 17:19 BP 106 / 59; Pulse 93; Resp 16; Pulse Ox 100% ; bp 19:00 BP 116 / 65; Pulse 92; Resp 16; Pulse Ox 100% on R/A; jb4 20:00 BP 127 / 79; Pulse 82; Resp 16; Pulse Ox 100% on R/A; jb4 15:49 Body Mass Index 28.48 (95.25 kg, 182.88 cm) ca1 ED Course: 15:43 Patient arrived in ED. ag5 15:53 Triage completed. ca1 15:54 Arm band placed on right wrist. ca1 16:02 Kuldeep Neil, GALILEA is Primary Nurse. bp 16:06 Ervin Malin PA is PHCP. jr8 16:06 Anthony Clarke MD is Attending Physician. jr8 16:11 Patient has correct armband on for positive identification. Bed in low position. Call bp light in reach. Side rails up X2. chief controller center on. Pulse ox on. NIBP on. 17:05 Inserted saline lock: 20 gauge in right wrist, using aseptic technique. Blood collected.bp 17:25 Chest Single View XRAY In Process Unspecified. EDMS 17:34 Notified Nurse Practitioner and/or Physician Chief Nursing Officer of a critical lab result(s), sv WBC-0.1, hemoglobin-7.8, platelet-11. 18:07 Prince Noonan MD is Hospitalizing Provider. jr8 20:44 No provider procedures requiring assistance completed. Patient admitted, IV remains in jb4 place. Administered Medications: 17:05 Drug: NS 0.9% (30 ml/kg) 30 ml/kg Route: IV; Rate: bolus; Site: right hand; bp 19:30 Drug: Cefepime 2 grams Route: IVPB; Rate: 200 ml/hr; Infused Over: 30 mins; Site: right jb4 hand; 20:00 Follow up: Response: No adverse reaction; IV Status: Completed infusion; IV Intake: jb4 100ml Intake: 20:00 IV: 100ml; Total: 100ml. jb4 Outcome: 18:08 Decision to Hospitalize by Provider. jr8 20:44 Admitted to Med/surg accompanied by nurse, via stretcher, room 215, with chart, Report jb4 called to GALILEA Nieves 20:44 Condition: stable 20:44 Discharge instructions given to patient, Instructed on the need for admit, Demonstrated understanding of instructions. 20:46 Patient left the ED. jb4 Signatures: Dispatcher [employer] [facility] Destiny Mccann RN RN sv Roszak, Josh, PA PA jr8 Chris Chong RN RN jb4 Peltier, Brian, RN RN bp Acob, Cheryl, RN RN ca1 Gaskin, Ajare ag5 Corrections: (The following items were deleted from the chart) 16:12 16:03 Musculoskeletal: No deficits noted. bp bp
--- NOTE | 2020-03-07 18:09 | EDPHYS ---
Physician Documentation [facility] Name: Hoang Camacho Age: 74 yrs Sex: Male : 1945 Arrival Date: 03/07/2020 Time: 15:43 Bed 25 Private MD: ED Physician Anthony Clarke HPI: 03/07 17:59 This 74 yrs old Black Male presents to ER via Wheelchair with complaints of Blood jr8 Pressure Problem, Increased Heart Rate. 17:59 Patient with history of lymphoma. Had chemotherapy a few weeks ago. Started to become jr8 dizzy and lightheaded. Had blood work done a few days ago and was resulted today as low H/H and Plt. Also had recent biopsy of right axilla which now it is getting larger and more painful . Onset: The symptoms/episode began/occurred gradually. Severity of symptoms: At their worst the symptoms were moderate in the emergency department the symptoms are unchanged. It is unknown whether or not the patient has had similar symptoms in the past. The patient has been recently seen by a physician:. Historical: - Allergies: 15:54 Amoxicillin; ca1 - PMHx: 15:54 Hypertension; lymphoma; Atrial Fib; ca1 - Immunization history:: Adult Immunizations up to date. - Social history:: Smoking status: Patient denies any tobacco usage or history of. ROS: 17:59 Eyes: Negative for injury, pain, redness, and discharge, ENT: Negative for injury, jr8 pain, and discharge, Neck: Negative for injury, pain, and swelling, Cardiovascular: Negative for chest pain, palpitations, and edema, Respiratory: Negative for shortness of breath, cough, wheezing, and pleuritic chest pain, Abdomen/GI: Negative for abdominal pain, nausea, vomiting, diarrhea, and constipation, Back: Negative for injury and pain, MS/Extremity: Negative for injury and deformity. 17:59 Constitutional: Positive for fatigue, malaise. 17:59 Neuro: Positive for dizziness, near syncope. Exam: 17:59 Head/Face: Normocephalic, atraumatic. Eyes: Pupils equal round and reactive to light, jr8 extra-ocular motions intact. Lids and lashes normal. Conjunctiva and sclera are non-icteric and not injected. Cornea within normal limits. Periorbital areas with no swelling, redness, or edema. ENT: Nares patent. No nasal discharge, no septal abnormalities noted. Tympanic membranes are normal and external auditory canals are clear. Oropharynx with no redness, swelling, or masses, exudates, or evidence of obstruction, uvula midline. Mucous membranes moist. Neck: Trachea midline, no thyromegaly or masses palpated, and no cervical lymphadenopathy. Supple, full range of motion without nuchal rigidity, or vertebral point tenderness. No Meningismus. Respiratory: Lungs have equal breath sounds bilaterally, clear to auscultation and percussion. No rales, rhonchi or wheezes noted. No increased work of breathing, no retractions or nasal flaring. Abdomen/GI: Soft, non-tender, with normal bowel sounds. No distension or tympany. No guarding or rebound. No evidence of tenderness throughout. Back: No spinal tenderness. No costovertebral tenderness. Full range of motion. MS/ Extremity: Pulses equal, no cyanosis. Neurovascular intact. Full, normal range of motion. Neuro: Awake and alert, GCS 15, oriented to person, place, time, and situation. Cranial nerves II-XII grossly intact. Motor strength 5/5 in all extremities. Sensory grossly intact. Cerebellar exam normal. Normal gait. 17:59 Chest/axilla: Axilla: large mass like structure noted to right axilla with surrounding erythema and warmth to palpation. 17:59 Cardiovascular: Rate: tachycardic, Rhythm: irregular, Pulses: Pulses are 1+ in right radial artery and left radial artery. Heart sounds: S1, normal, S2, normal, Edema: 2+ edema to level of right upper arm, right forearm, right wrist, left midcalf, left upper arm, left forearm, left wrist, right midcalf, right ankle and right foot, JVD: is not appreciated. 17:59 Skin: Appearance: Color: pale, Temperature: normal temperature, Moisture: normal moisture, ecchymosis, noted on the, chest and abdomen. Vital Signs: 15:49 BP 89 / 57; Pulse 139; Resp 20; Temp 97.8(O); Pulse Ox 99% on R/A; Weight 95.25 kg (R); ca1 Height 6 ft. (182.88 cm) (R); 16:11 BP 110 / 67; Pulse 101; Resp 27; Pulse Ox 100% ; bp 17:19 BP 106 / 59; Pulse 93; Resp 16; Pulse Ox 100% ; bp 19:00 BP 116 / 65; Pulse 92; Resp 16; Pulse Ox 100% on R/A; jb4 20:00 BP 127 / 79; Pulse 82; Resp 16; Pulse Ox 100% on R/A; jb4 15:49 Body Mass Index 28.48 (95.25 kg, 182.88 cm) ca1 MDM: 16:09 Patient medically screened. [facility] 18:06 Data reviewed: vital signs, nurses notes, lab test result(s), EKG, radiologic studies, [facility] plain films, ultrasound. Data interpreted: Pulse oximetry: on room air is 100 %. Interpretation: normal. Counseling: I had a detailed discussion with the patient and/or guardian regarding: the historical points, exam findings, and any diagnostic results supporting the discharge/admit diagnosis, lab results, radiology results, the need for further work-up and treatment in the hospital. ED course: Discussed case with Dr. Benjamin and Dr. Patterson. Both consulted on case. Patient will be admitted to Hospitalist . 03/07 16:08 Order name: Basic Metabolic Panel; Complete Time: 17:51 [facility] 03/07 16:08 Order name: Blood Culture Adult (2) [facility] 03/07 16:08 Order name: CBC with Diff; Complete Time: 20:18 [facility] 03/07 16:08 Order name: CPK; Complete Time: 17:51 [facility] 03/07 16:08 Order name: Lactate; Complete Time: 17:56 [facility] 03/07 16:08 Order name: LFT's; Complete Time: 17:51 [facility] 03/07 16:09 Order name: Lipase; Complete Time: 17:51 [facility] 03/07 16:09 Order name: Procalcitonin; Complete Time: 19:28 [facility] 03/07 16:09 Order name: Protime (+inr); Complete Time: 18:06 [facility] 03/07 16:09 Order name: Ptt, Activated; Complete Time: 18:06 [facility] 03/07 16:09 Order name: Troponin (emerg Dept Use Only); Complete Time: 17:51 [facility] 03/07 16:09 Order name: Urine Microscopic Only; Complete Time: 17:35 [facility] 03/07 16:18 Order name: TS [facility] 03/07 16:44 Order name: Bb Add On bd 03/07 16:03 Order name: EKG; Complete Time: 16:03 bp 03/07 16:03 Order name: EKG - Nurse/Tech; Complete Time: 16:03 bp 03/07 16:09 Order name: Chest Single View XRAY; Complete Time: 17:38 jr8 03/07 16:09 Order name: Accucheck; Complete Time: 16:32 jr8 03/07 16:09 Order name: Cardiac monitoring; Complete Time: 16:32 8 03/07 16:09 Order name: EKG - Nurse/Tech; Complete Time: 16:20 jr8 03/07 16:09 Order name: IV Saline Lock - Large Bore; Complete Time: 17:19 8 03/07 16:09 Order name: Labs collected and sent; Complete Time: 17:19 8 03/07 16:09 Order name: O2 Per Protocol; Complete Time: 16:21 8 03/07 17:16 Order name: Urine Dipstick--Ancillary (enter results); Complete Time: 17:35 bd 03/07 17:49 Order name: CBC Smear Scan; Complete Time: 20:18 EDMS 03/07 18:06 Order name: US Extrmty Nonvasular Limited [facility] 03/07 18:21 Order name: Packed RBCs (Additional Unit) [facility] 03/07 18:21 Order name: Platelets, Leukored Pheresis [facility] 03/07 16:09 Order name: O2 Sat Monitoring; Complete Time: 16:20 [facility] 03/07 16:09 Order name: Urine Dipstick-Ancillary (obtain specimen); Complete Time: 17:19 [facility] Administered Medications: 17:05 Drug: NS 0.9% (30 ml/kg) 30 ml/kg Route: IV; Rate: bolus; Site: right hand; bp 19:30 Drug: Cefepime 2 grams Route: IVPB; Rate: 200 ml/hr; Infused Over: 30 mins; Site: right jb4 hand; 20:00 Follow up: Response: No adverse reaction; IV Status: Completed infusion; IV Intake: jb4 100ml Disposition: 03/08 08:46 Co-signature as Attending Physician, Anthony GAMBLE I agree with the assessment and bebe plan of care. Disposition: 03/07/20 18:08 Hospitalization ordered by Prince Shaista for Inpatient Admission. Preliminary diagnosis are Neutropenia, unspecified, Anemia in neoplastic disease, Hypotension, Atrial fibrillation and flutter - new onset . - Bed requested for Telemetry/MedSurg (Inpatient). - Status is Inpatient Admission. jb4 - Condition is Fair. - Problem is new. - Symptoms have improved. Signatures: Dispatcher [employer] EDMS Svetlana Cummins RN RN dw Jamey Hall RN RN sg Anthony Clarke MD MD cha Roszak, Josh, PA PA jr8 Chris Chong RN RN jb4 Kuldeep Neil RN RN bp Odessa Ly RN RN ca1 Corrections: (The following items were deleted from the chart) 08 18:36 18:08 Hospitalization Ordered by Prince Shaista GAMBLE for Inpatient Admission. Preliminary dw diagnosis is Neutropenia, unspecified; Anemia in neoplastic disease; Hypotension; Atrial fibrillation and flutter - new onset . Bed requested for Telemetry/MedSurg (Inpatient). Status is Inpatient Admission. Condition is Fair. Problem is new. Symptoms have improved. jr8 20:08 18:36 03/07/2020 18:08 Hospitalization Ordered by Prince Shaista GAMBLE for Inpatient sg Admission. Preliminary diagnosis is Neutropenia, unspecified; Anemia in neoplastic disease; Hypotension; Atrial fibrillation and flutter - new onset . Bed requested for Telemetry/MedSurg (Inpatient). Status is Inpatient Admission. Condition is Fair. Problem is new. Symptoms have improved. dw 20:46 20:08 03/07/2020 18:08 Hospitalization Ordered by Prince Shaista GAMBLE for Inpatient jb4 Admission. Preliminary diagnosis is Neutropenia, unspecified; Anemia in neoplastic disease; Hypotension; Atrial fibrillation and flutter - new onset . Bed requested for Telemetry/MedSurg (Inpatient). Status is Inpatient Admission. Condition is Fair. Problem is new. Symptoms have improved. sg
--- NOTE | 2020-03-07 18:44 | P.HP ---
Certification for Inpatient Patient admitted to: Inpatient With expected LOS: >2 Midnights Patient will require the following post-hospital care: None Practitioner: I am a practitioner with admitting privileges, knowledge of patient current condition, hospital course, and medical plan of care. 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 Patient reports that he has noticed the swelling and redness to the right axillary area for last 2-3 days. Patient currently receiving chemotherapy with , last chemotherapy was approximately 2-3 weeks ago. During patient's evaluation in the emergency department he is found to be aplastic anemia with a white blood cell count of 0.1, hemoglobin of 7.8, platelet count of 11. Patient was also noted to have a large swollen, tense, cellulitic area to the right axillary region. Ultrasound was obtained which showed abscess versus hematoma of the right axillary region. Patient was also noted to be tachycardic upon presentation to the emergency department and on his initial EKG appear to be in atrial flutter. Patient has since converted out of atrial flutter and is currently in normal sinus rhythm. Blood pressure has improved greatly as well. Patient started on broad-spectrum antibiotics including Levaquin per oncology and cefepime. ED provider spoke with oncology and general surgery. Oncology prefers patient had 2 units packed red blood cells and 1 unit apheresis platelets. General surgery will evaluate patient in the morning. When I saw the patient in the emergency department he was awake, alert, oriented x4. Blood pressure was 120/70, heart rate was in the 80s. Patient not in any distress. What appears to be a large abscesses look in the right axillary region. Patient be admitted for further evaluation and management. Will also consult cardiology. Allergies No Known Allergies Allergy (Verified 02/12/20 01:45) Home Medications: Amlodipine [Norvasc*] 5 mg PO DAILY 02/12/20 Flecainide [Tambocor*] 100 mg PO BID 02/12/20 Furosemide [Lasix*] 20 mg PO BIDL 30 Days #60 tab 02/23/20 predniSONE [Prednisone*] 30 mg PO BID #20 tab 02/23/20 - Past Medical/Surgical History Diabetic: No -: Hypertension -: H. pylori peptic ulcer -: History of GI bleed -: Lymphoma -: Endoscopy Psychosocial/ Personal History: Patient lives at home with his . - Family History Father -: Hypertension - Social History Alcohol use: No CD- Drugs: No Caffeine use: No Place of Residence: Home Review of Systems General: Malaise Integumentary: As per HPI Physical Examination - Physical Exam General: Alert, In no apparent distress, Oriented x3 HEENT: Atraumatic, Normocephalic, PERRLA, Mucous membr. moist/pink Neck: Supple Respiratory: Clear to auscultation bilaterally, Normal air movement Cardiovascular: Normal pulses, Regular rate/rhythm, Normal S1 S2 Capillary refill: <2 Seconds Gastrointestinal: Normal bowel sounds, Non-distended, No masses, No rebound, No guarding Musculoskeletal: Erythema, Tenderness, Warmth Integumentary: Tenderness/swelling (Right axilla), Erythema, Warmth Neurological: Normal speech, Normal strength at 5/5 x4 extr, Normal tone, Sensation intact - Studies Laboratory Data (last 24 hrs) 03/07/20 17:05: PT 14.7 H, INR 1.25, APTT 29.9 03/07/20 17:05: WBC 0.1 L* D, Hgb 7.8 L*, Hct 23.1 L, Plt Count 11 L* D 03/07/20 17:05: Sodium 136, Potassium 3.9, BUN 21 H, Creatinine 1.09, Glucose 140 H, Total Bilirubin 2.1 H, AST 27, ALT 27, Alkaline Phosphatase 113, Lipase 69 L Assessment and Plan - Plan Assessment 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 Patient will receive 2 units packed red blood cells and 1 unit of Apheresed platelets. Will continue to monitor patient's CBC daily. Will hold off on any anti coagulation at this time. Appreciate further input from oncology/hematology. Large right axillary abscess versus hematoma complicated by aplastic anemia significant thrombocytopenia: Broad-spectrum antibiotics started with Levaquin and cefepime. General surgery has been consulted on this case. NPO after midni ght even though surgery is unlikely given patient's platelet count. Ultrasound has been completed. Will continue trend patient's labs. Appreciate further input from general surgery and oncology/hematology. Paroxysmal atrial flutter-now resolved: Cardiology consult in place. Patient will remain on telemetry. Will hold off on any beta-veronika therapy as patient was initially hypotensive and is now in sinus rhythm. Hypertension: Will obtain and continue patient's home medications. Discharge Plan: Home Plan to discharge in: Greater than 2 days - Advance Directives Does patient have a Living Will: No Does patient have a Durable POA for Healthcare: No - Code Status/Comfort Care Code Status Assessed: Yes (Patient is full code) Critical Care: No Time Spent Managing Pts Care (In Minutes): 55
[2020-03-07] MEDS ORDERED: NA CHLORIDE 0.9% 100 ML IV ONE (19:29)
[2020-03-07] MEDS ORDERED: CEFEPIME 2 GM VIAL ONE (19:29)
[2020-03-07 20:05] LABS: Urine White Blood Cell Casts OK
[2020-03-07 20:06] LABS: Anisocytosis 1+; Blood Morphology Comment NOTED (NOT SEEN); Platelet Estimate DECR; Poikilocytosis 1+
[2020-03-07] MEDS: NA CHLORIDE 0.9% 1,000 ML IV SCH ×2 (20:54→22:04)
[2020-03-07] MEDS ORDERED: ONDANSETRON 4 MG/2 ML VIAL IV PRN (20:54)
[2020-03-07] MEDS ORDERED: Levofloxacin 750mg IV 750 MG/150 ML BAG IV SCH (22:00)
[2020-03-07] MEDS ORDERED: NA CHLORIDE 0.9% 250 ML ONE (22:11)
[2020-03-07 22:39] LABS: Urine Appearance CLEAR; Urine Bilirubin NEGATIVE (NEG); Urine Blood NEGATIVE (NEG); Urine Color DK YELLOW; Urine Glucose NEGATIVE (NEG); Urine Microscopic Reflex ORDER UMIC; Urine Protein TRACE (NEG); Urine Specific Gravity 1.015 (1.005-1.030)
[2020-03-07 22:53] VITALS: BMI 27.8
[2020-03-07] MEDS ORDERED: ACETAMINOPHEN 325 MG TABLET PO ONE (23:00)
[2020-03-07] MEDS ORDERED: DIPHENHYDRAMINE 50 MG/ML VIAL IV ONE (23:00)
[2020-03-07 23:41] LABS: Urine Bacteria <20 /HPF (NONE SEEN); Urine Coarse Granular Casts 0-5 /LPF (NONE SEEN); Urine Culture Reflex Order NOT NEEDED; Urine RBC NONE SEEN /HPF (NONE SEEN)
[2020-03-08] MEDS ORDERED: NA CHLORIDE 0.9% 250 ML ONE ×2 (02:45→22:56)
[2020-03-08 07:35] LABS: Hematocrit 21.1 % (39.6-49.0); RBC Red Blood Cell Count 2.49 M/uL (4.33-5.43)
[2020-03-08 07:52] LABS: ALT/SGPT 25 U/L (12-78); AST/SGOT 27 U/L (15-37); Albumin 2.6 g/dL (3.4-5.0); Alkaline Phosphatase 103 U/L (45-117); BUN Blood Urea Nitrogen 21 mg/dL (7-18); Bicarbonate 25 mmol/L (21-32); Glucose Level 94 mg/dL (74-106); Magnesium 2.3 mg/dL (1.8-2.4); Potassium 3.8 mmol/L (3.5-5.1); Protein, Total 5.8 g/dL (6.4-8.2); Sodium Level 138 mmol/L (136-145)
[2020-03-08] MEDS ORDERED: PNEUMOCOCCAL VACCINE 0.5 ML IMVAC ONE (08:00)
--- NOTE | 2020-03-08 08:48 | RAD REPORT ---
EXAM DESCRIPTION: US - Extremity Nonvascular Complete - 03/08/2020 7:58 am CLINICAL HISTORY: mass. Recent biopsy now with swelling and enlargement;Pain COMPARISON: No comparisons TECHNIQUE: Real-time sonographic evaluation of the area of interest was performed right axilla. FINDINGS: Large irregular complex mass is present in the region, likely neoplastic, measuring approx imately 8 x 5 cm. There appears to be a hematoma adjacent to the large mass laterally measuring 5 cm.
[2020-03-08] MEDS ORDERED: predniSONE 10 MG TAB PO SCH (09:00)
[2020-03-08] MEDS ORDERED: CEFEPIME 1 GM/VIAL IV SCH (09:00)
[2020-03-08] MEDS ORDERED: predniSONE 20 MG TAB PO SCH (09:00)
[2020-03-08] MEDS: CEFEPIME/SWI 1gm 10 ML IV SCH (09:17)
[2020-03-08] MEDS: NA CHLORIDE 0.9% 1,000 ML IV SCH ×2 (09:19→23:34)
[2020-03-08] MEDS ORDERED: NA CHLORIDE 0.9% 100 ML IV ONE (11:00)
--- NOTE | 2020-03-08 11:03 | EKG ---
Test Date: 2020-03-07 Test Time: 15:57:56 Director Adult: GINNY MEASUREMENT RESULTS: Intervals: Rate: 136 MA: QRSD: 92 QT: 344 QTc: 517 [place]: P: MA: QRS: 62 T: 195 INTERPRETIVE STATEMENTS: Supraventricular tachycardia Marked ST abnormality, possible inferior subendocardial injury Abnormal ECG Compared to ECG 02/16/2020 19:46:46 ST (T wave) deviation now present Sinus rhythm no longer present First degree AV block no longer present Prolonged QT interval no longer present Electronically Signed On 03-08-20 11:01:47 CDT by David Marin
--- NOTE | 2020-03-08 11:29 | PREOPCON ---
Date of Consultation: 03/07/2020 Reason: The patient has a hematoma in the right axilla with a mass. History Of Present Illness: The patient is a 74-year-old gentleman who comes in with a history of st age IV lymphoma, which was diagnosed 3 to 4 weeks ago, and I did the biopsy of lymph node in the righ t axilla and a stage IV lymphoma. I also placed a Port-A-Cath for chemotherapy. He went and saw Dr. Benjamin yesterday. His last chemotherapy was 2 weeks ago, and he was found to be with aplastic anemia. White count of 0.1, hemoglobin of 7.8, platelets of 11. He had a large intense red area in the rig ht axillary region. Ultrasound was obtained, showed a hematoma and a mass 8 x 5 cm, which was not th ere several weeks ago and Dr. Benjamin is concerned about refractory lymphoma and needs a biopsy of that as well as drainage of the fluid. So, I was consulted. He is awake, alert, complaining of discomfor t in the area but no fever or chills. Review of Systems: Otherwise unremarkable. Past Medical History: Significant for hypertension, peptic ulcer disease, history GI bleed, lymphoma . Past Surgical History: Endoscopy. Allergies: NONE. Social History: The patient does not smoke or drink. Family History: Noncontributory. Physical Examination: Vital Signs: Stable. He is afebrile. General: He is awake, alert, and oriented x3. Head and Neck: No masses. Chest: Clear. Heart: S1 and S2. Abdomen: Soft. Extremities: Neurovascularly intact. Neurologic: Nonfocal. SKIN: On right axilla, there is a large 10 x 15 cm area of erythema, edema, induration, lateral fluc tuance. Laboratory Data: White count this morning is less than 0.5, hemoglobin 7.2, platelets are 29. INR i s 1.25. Chemistry reviewed. Lactic acid was 5.1, is now 1.8. Ultrasound reviewed with the radiolog ist of the right axilla, which shows a large areolar complex masses likely neoplastic measuring 8 x 5 cm. There appears to be a hematoma adjacent to the large mass laterally measuring 5 cm. Assessment: A 74-year-old gentleman with a large mass and hematoma in the right axilla and a stage I V lymphoma. Recommendations: The patient will receive platelets and we will take him to the OR for drainage of t he hematoma and biopsy of the mass as this may be refractory lymphoma, may be altering the treatment options for the patient. Risks, benefits, and alternatives with the patient discussed and the patien t agrees. VANESSA/SHADE Voice ID: [id number] Report ID: [id number]
[2020-03-08] MEDS ORDERED: FENTANYL CITR 100 MCG/2 ML ONE (11:42)
[2020-03-08] MEDS ORDERED: MIDAZOLAM HCL 2 MG/2 ML INJ ONE (11:42)
[2020-03-08] MEDS ORDERED: propofoL 200 MG/20 ML VIAL IV ONE (11:42)
[2020-03-08] MEDS ORDERED: LIDOCAINE 2% MPF 5 ML VIAL ONE (11:42)
[2020-03-08] MEDS ORDERED: Phenylephrine HCl 10 MG/ML 1 ML VIAL ONE (12:04)
--- NOTE | 2020-03-08 12:35 | P.OP ---
Door Trimmer: Leida WHITTINGTON Preoperative diagnosis: Lymphoma, Right axillary mass and hematoma Postoperative diagnosis: same Primary procedure: I and D Right axillary hematoma and Bx Right axillary mass Anesthesia: General Estimated blood loss: min Specimen: Fluid and tissue Findings: as above Complications: None Drain(s): JENNIFER drain Transferred to: Recovery Room Condition: Good
[2020-03-08] MEDS ORDERED: HYDROCODONE/APAP 7.5/325 MG TAB PO PRN (12:41)
[2020-03-08] MEDS ORDERED: NA CHLORIDE 0.9% 1,000 ML ONE (12:45)
[2020-03-08] MEDS: MEPERIDINE HCL 25 MG/ML SYR ONE ×2 (13:06→13:10)
[2020-03-08 13:09] LABS: Anisocytosis 1+; Blood Morphology Comment NOTED (NOT SEEN); Platelet Estimate DECR
[2020-03-08 13:10] LABS: Dohle Bodies PRESENT; Toxic Granulation 1+
--- NOTE | 2020-03-08 13:32 | P.PN ---
Subjective Date of Service: 03/08/20 Chief Complaint: Aplastic anemia, abscess Subjective: No new changes (Received platelet and blood transfusion overnight. Feeling less fatigued today. He underwent I and D of Right axillary hematoma and Bx Right axillary mass.) Physical Examination - Vital Signs Temperature: 98.5 F Blood Pressure: 117/49 Pulse: 85 Respirations: 18 Pulse Ox (%): 100 - Physical Exam General: In no apparent distress, Cooperative, Other (More alert and less lethargic) HEENT: Atraumatic, Normocephalic, EOMI Respiratory: Clear to auscultation bilaterally, Normal air movement Cardiovascular: Normal S1 S2, Edema, Irregular heart rate/rhythm Gastrointestinal: Normal bowel sounds, Soft and benign, Non-distended, No ascites Musculoskeletal: Swelling, Other (+pitting edema from ankle down, bilaterally) Integumentary: Other (Bilateral ankle petechiae) Neurological: Normal speech, Sensation intact, Normal affect - Studies Laboratory Data (last 24 hrs) 03/07/20 17:05: PT 14.7 H, INR 1.25, APTT 29.9 03/07/20 17:05: WBC 0.1 L* D, Hgb 7.8 L*, Hct 23.1 L, Plt Count 11 L* D 03/07/20 17:05: Sodium 136, Potassium 3.9, BUN 21 H, Creatinine 1.09, Glucose 140 H, Total Bilirubin 2.1 H, AST 27, ALT 27, Alkaline Phosphatase 113, Lipase 69 L Microbiology Data (last 24 hrs): 03/07/20 17:05 Blood - Blood Anaerobic Blood Culture - Final 03/07/20 17:05 Blood - Blood Anaerobic Blood Culture - Final Assessment & Plan - Problems (Diagnosis) (1) Lymphoma Current Visit: Yes Status: Acute (2) Atrial fibrillation with RVR Current Visit: Yes Status: Acute (3) History of peptic ulcer disease Current Visit: No Status: Acute (4) Pancytopenia Current Visit: No Status: Acute (5) Neutropenia Current Visit: Yes Status: Acute Physician Review Additional Text: Assessment Patient is a 74 year male currently on chemotherapy for lymphoma who presented to the ER at which shortness of breath and right axillary mass. Developed rapid AFib in the ER. Receive blood and platelet transfusion for pancytopenia. H/H responded partially. He underwent I and D of right axillary mass on 03/08 which yielded hematoma. Hematology has been consulted for neutropenia. R axillary mass Symptomatic anemia Pancytopenia AND Neutropenia Atrial fibrillation with RVR Lymphoma PLAN Transfuse 2 units of pRBC with goal Hb > 8 Give furosemide between transfusions Continue anti-microbial ppx (cefepime and valacyclovir) Resume on home dose of fleicanide for Afib Hematology consulted for neutropenia Patient is pending evaluation by Hematology, post op wound check by Surgery.
[2020-03-08] MEDS ORDERED: FUROSEMIDE 40 MG/4 ML VIAL IV PRN (13:48)
[2020-03-08] MEDS: VALACYCLOVIR 500 MG TAB PO SCH (14:00)
[2020-03-08 15:16] LABS: RBC Red Blood Cell Count 1.95 M/uL (4.33-5.43)
[2020-03-08 15:35] LABS: Hematocrit 16.4 % (39.6-49.0)
[2020-03-08] MEDS: allopurinoL 100 MG TAB PO SCH (15:43)
[2020-03-08] MEDS: PANTOPRAZOLE 40MG TABLET PO SCH (15:43)
[2020-03-08] MEDS: FLECAINIDE 100 MG TAB PO SCH ×2 (15:43→21:06)
[2020-03-08] MEDS: FUROSEMIDE 20 MG TABLET PO SCH (17:00)
[2020-03-08 17:11] LABS: Anisocytosis 1+; Blood Morphology Comment NOTED (NOT SEEN); Hypochromasia 1+; Platelet Estimate DECR; Polychromasia 1+
--- NOTE | 2020-03-08 22:17 | OP ---
Date of Procedure: 03/08/2020 Surgeon: Romaine Patterson MD Auxiliary Equipment Tender: PK Looney Preoperative Diagnoses: Right axillary hematoma and right axillary mass and stage IV lymphoma. Postoperative Diagnoses: Right axillary hematoma and right axillary mass and stage IV lymphoma. Procedure: Incision and drainage of right axillary hematoma and biopsy of right axillary mass. Estimated Blood Loss: Minimal. Specimens: Fluid from the right axilla and biopsy of the mass. Findings: As above. Anesthesia: General. Complications: None. Drains: JENNIFER #10 flat. Disposition: The patient tolerated the procedure in stable condition, taken to Recovery in good gene ral condition. Procedure In Detail: The patient was brought to the OR and placed in the supine position. General a nesthesia begun and the patient was prepped and draped in the usual sterile fashion. Marcaine 0.5% w as infiltrated locally. Then, 15 blade was used to make a 4 cm incision in the right axilla and deep to the subcutaneous tissue, there was indurated tissue, which was biopsied, excised, sent to Patholo gy as specimen. There was oozing noted from all of the tissue that was incised. There was a large a mount of serous fluid, cultures were done, and pathology specimen was taken, and this is where the pr evious lymph node biopsy was done. The entire wound was irrigated. All clots were removed and then bleeding was controlled with cautery as much as possible. Then, diverting Surgicel multiple were use d to cover the wound. Pressure was applied and injected. Angel-Alves drain #10 flat was placed an d secured with 3-0 nylon and then 2-0 nylon was used to close the skin with a running baseball stitch . Then, pressure was applied again and pressure dressing was applied. The patient was awakened and taken to Recovery in good general condition. /MODL Voice ID: [id number] Report ID: [id number]
[2020-03-09] MEDS: ACETAMINOPHEN 500 MG TAB PO PRN ×2 (00:47→14:39)
[2020-03-09 04:29] LABS: MPV 8.4 fL (7.6-11.3)
[2020-03-09 04:32] LABS: Hematocrit 19.3 % (39.6-49.0)
[2020-03-09 04:39] LABS: ALT/SGPT 21 U/L (12-78); AST/SGOT 22 U/L (15-37); Albumin 2.2 g/dL (3.4-5.0); Alkaline Phosphatase 87 U/L (45-117); BUN Blood Urea Nitrogen 20 mg/dL (7-18); Bicarbonate 25 mmol/L (21-32); Bilirubin Total 3.1 mg/dL (0.2-1.0); Glucose Level 106 mg/dL (74-106); Potassium 3.3 mmol/L (3.5-5.1); Protein, Total 5.1 g/dL (6.4-8.2); Sodium Level 139 mmol/L (136-145)
[2020-03-09] MEDS: NA CHLORIDE 0.9% 1,000 ML IV SCH ×2 (04:57→12:54)
[2020-03-09 05:37] LABS: Blood Morphology Comment NOT SEEN (NOT SEEN); Platelet Estimate DECR
[2020-03-09] MEDS ORDERED: POTASSIUM 25 MEQ EFFERV TAB PO ONE (06:00)
[2020-03-09] MEDS ORDERED: CALCIUM GLUC 10% INJ 9.3 MEQ in NA CHLORIDE 0.9% 100 ML IV ONE (06:11)
[2020-03-09] MEDS: CEFEPIME/SWI 1gm 10 ML IV SCH (08:49)
[2020-03-09] MEDS: VALACYCLOVIR 500 MG TAB PO SCH (08:50)
[2020-03-09] MEDS: PANTOPRAZOLE 40MG TABLET PO SCH ×2 (08:50→17:20)
[2020-03-09] MEDS: allopurinoL 100 MG TAB PO SCH (08:50)
[2020-03-09] MEDS: FLECAINIDE 100 MG TAB PO SCH ×2 (08:51→21:32)
[2020-03-09] MEDS: FUROSEMIDE 20 MG TABLET PO SCH ×2 (08:51→17:20)
--- NOTE | 2020-03-09 10:38 | PN ---
Date of Progress Note: 03/09/2020 Subjective: The patient is awake and alert. No complaint. No pain. Objective: Vital Signs: Stable. He is afebrile. JENNIFER put out 150 cc of serous fluid. Most likely lymphoid. Dressing is clean, dry, and intact. JENNIFER dr richmond has minimal serous mixed with a little bit of dried blood in the JENNIFER drain. Laboratory Data: His white count is still less than 500, H and H is 6.7 and 19.3, platelets are 35. Assessment: Status post incision and drainage of a right axillary fluid collection and biopsy of a m ass. Recommendation: There is no evidence of active bleeding. The patient can be discharged home when me dically stabilized and cleared by the Oncology service with home health. They needed record JENNIFER outpu t and strip tubing p.r.n. Reinforce the dressing p.r.n. and we can utilize telemedicine as a followu p as he is high risk for infection to determine when to remove the drain. /MODL Voice ID: [id number] Report ID: [id number]
[2020-03-09] MEDS ORDERED: VANCOMYCIN 2 GM in NA CHLORIDE 0.9% 500 ML IVPB ONE (11:00)
[2020-03-09 13:14] LABS: RBC Red Blood Cell Count 2.67 M/uL (4.33-5.43)
[2020-03-09 13:30] LABS: Bilirubin Direct 1.9 mg/dL (0-0.2)
--- NOTE | 2020-03-09 13:45 | P.PN ---
Subjective Date of Service: 03/09/20 Chief Complaint: Aplastic anemia, abscess Subjective: No new changes (Patient is having low-grade fever. Still neutropenic. I discussed the case with Hematology and requested an inpatient consult.) Physical Examination - Vital Signs Temperature: 97.2 F Blood Pressure: 134/63 Pulse: 78 Respirations: 18 Pulse Ox (%): 100 - Physical Exam General: In no apparent distress, Cooperative, Other (With RT) HEENT: Atraumatic, Normocephalic, Other (Pale conjunctiva) Neck: Supple, Without JVD or thyroid abnormality Respiratory: Clear to auscultation bilaterally, Normal air movement Cardiovascular: Normal S1 S2, Other (Irregular heart rate. Bilateral lower extremity edema.), Irregular heart rate/rhythm Gastrointestinal: Normal bowel sounds, Soft and benign, Non-distended, No tenderness Musculoskeletal: Other (Petechiae) Integumentary: Other (Petechia) Neurological: Normal speech, Sensation intact, Normal affect - Studies Microbiology Data (last 24 hrs): 03/07/20 17:05 Blood - Blood Anaerobic Blood Culture - Final 03/07/20 17:05 Blood - Blood Anaerobic Blood Culture - Final Assessment & Plan - Problems (Diagnosis) (1) Lymphoma Current Visit: Yes Status: Acute (2) Atrial fibrillation with RVR Current Visit: Yes Status: Acute (3) History of peptic ulcer disease Current Visit: No Status: Acute (4) Pancytopenia Current Visit: No Status: Acute (5) Neutropenia Current Visit: Yes Status: Acute Physician Review Additional Text: Assessment Patient is a 74 year male currently on chemotherapy for lymphoma who presented to the ER at which shortness of breath and right axillary mass. Developed rapid AFib in the ER. Receive blood and platelet transfusion for pancytopenia. H/H responded partially. He underwent I and D of right axillary mass on 03/08 which yielded hematoma. Currently with a JENNIFER drain with minimal output. Hematology has been consulted for neutropenia. Patient has large B-cell lymphoma and follows up with Hematology. His last dose of Neulasta was 1 week prior to presentation. R axillary mass due to hematoma Symptomatic anemia Pancytopenia AND Neutropenia Atrial fibrillation with RVR Lymphoma PLAN Hematology consult requested Started on vancomycin suspicion for neutropenic fever Continue anti-microbial ppx (cefepime and valacyclovir) Blood cultures pending Transfuse another 2 units of pRBC with goal Hb > 8 Give furosemide between transfusions Continue home dose of fleicanide for Afib Hematology consulted for neutropenia Patient is pending evaluation by Hematology Surgery monitoring drain output
[2020-03-09] MEDS ORDERED: NA CHLORIDE 0.9% 250 ML IV SCH (14:00)
[2020-03-09] MEDS ORDERED: POTASSIUM CL SA 10 MEQ TAB PO ONE (14:21)
[2020-03-09] MEDS: TBO-FILGRASTIM 480 MCG/0.8 ML SYR SQ SCH (16:02)
--- NOTE | 2020-03-09 20:24 | CON ---
Date of Consultation: 03/09/2020 Additional Consulting Physician: Dr. Prince Noonan. Reason For Consultation: Pancytopenia and lymphoma. History Of Present Illness: Mr. Camacho is known to me from his previous hospitalization on February 11 2020. Please see the consult from 02/12/2020 dictated by me for details. Briefly, Mr. Camacho was admitted with acute renal failure, generalized rash, anemia, and pancytopenia at that time. Following a workup and a right axillary lymph node biopsy, he was diagnosed with diffuse large B-cell lymphoma and has been under my care as an outpatient for the same. He remains severely pancytopenic in spite of chemotherapy 2 weeks ago and is red blood cell and platelet transfusion dependent. He received the first cycle of chemotherapy with R-CHOP on 02/25/2020, followed by long-acting Neupogen called Fulphila on 02/26/2020. He was hospitalized this time on the 07 of March for hypotension, tachycardia, and an enlarging right axillary swelling. In the ER, he was noted to be in atrial flutter, possibly supraventricular tachycardia, which resolved. On 03/08/2020, he underwent incision and drainage of the right axillary swelling along with a biopsy of the solid component of this swelling. Mr. Camacho complains of weakness. He denies a fever. He said he had about 6 blankets on his body because he felt cold last night. His temperature was a 100.1 Fahrenheit overnight and he has been afebrile since then. He denies any chills or rigors. Denies any rectal bleeding or melena. He denies chest pain or shortness of breath. He reports no abdominal pain, diarrhea, or constipation. Past Medical History: Unchanged and is significant for hypertension, acute GI bleeding in January 2020, anemia, atrial fibrillation/tachycardia. Past Surgical History: Significant for the right axillary lymph node biopsy in February, followed by incision and drainage on 03/08/2020. Social And Family History: Unchanged from February 2020. Current Medications: As follows: Acetaminophen 500 mg p.o. q.4 hours p.r.n., hydrocodone 1 tablet q.6 hours p.r.n., allopurinol 100 mg p.o. daily, cefepime 1 g q.24 hours, flecainide 100 mg p.o. b.i.d., Lasix 20 mg p.o. b.i.d., ondansetron 4 mg IV q.6 hours p.r.n. for nausea, pantoprazole 40 mg p.o. b.i.d., prednisone 20 mg p.o. daily in a.m. and 10 mg p.o. daily in p.m., valacyclovir 500 mg p.o. daily, and vancomycin 1.5 g q.12 hours. Allergies: HE IS ALLERGIC TO PENICILLIN, WHICH CAUSED A GENERALIZED RASH LAST MONTH. Physical Examination: General: Mr. Janice haynes has anasarca and appears chronically ill. Vital Signs: Revealed temperature of 96.6 Fahrenheit at noon, pulse 96, respirations 20 per minute, blood pressure 135/62, saturating at 99%. HEENT: General physical examination reveals pallor and icterus. No cyanosis or clubbing was noted. Oral examination reveals no mucositis or thrush. Lymph Node Survey: Reveals no neck adenopathy. The previous left axillary adenopathy has resolved. He has swelling of the right axilla with an incision and drain in place draining serosanguineous clear fluid. Skin: Examination reveals petechiae and bruising around the right axilla, on his knees and shins. Chest: Clear to auscultation. Heart: Sounds reveal normal S1, S2. No gallops or murmurs. Abdomen: Soft and nontender. Bowel sounds were present. Neurological: He is alert and oriented with no acute deficits. Extremities: Showed 3+ pitting edema. Laboratory Data: From this morning reveals a white count of less than 0.5, hemoglobin was 6.7 g/dL, hematocrit 19.3, and a platelet count of 35,000. The retic count and absolute retic count were low. Chemistries reveal an albumin of 2.2 and a bilirubin of 3.1. A direct bilirubin was ordered and was found to be elevated at 1.9. Liver enzymes, AST, ALT, and alkaline phosphatase were normal. LDH was also found to be normal. Assessment And Plan: 1. Pancytopenia. a. This patient has had a chronic neutropenia/leukopenia, anemia, and thrombocytopenia for at least 6 weeks if not longer. He is packed red blood cell and platelet transfusion dependent. Given the recent right axillary surgery, I would suggest you transfuse packed red blood cells to keep his hemoglobin at 8 g/dL or more and his platelet count at 30,000 or more at all times. We will continue to follow his blood counts 3 times a week as we have done as an outpatient and transfuse as needed upon his discharge. b. Possible neutropenic fever. We will start him back on Granix 480 mcg SQ daily. Blood cultures done on the 07 of March are still pending and not finalized. In the interim, we would continue with IV cefepime, IV Levaquin, and vancomycin. 2. Diffuse large B-cell lymphoma. Mr. Camacho has a high risk high-grade lymphoma. This is most likely the cause of his pancytopenia, which has not improved yet inspite of chemotherapy. We will continue supportive care and palliative chemotherapy as soon as his counts recover/stabilize. Prognosis is guarded as regards to lymphoma. 3. Tachycardia and hypotension. He has a history of arrhythmia and was on flecainide. Awaiting Cardiology input with regard to management of his tachycardia and hypotension. 4. Right axillary swelling. A biopsy of the right axillary mass has not revealed lymphoma regrowth, which is good. We are still awaiting cultures of the fluid drained while he continues on empirical antibiotics. We will leave the drain in, and proceed with wound care as per Dr. Patterson. 5. Jaundice. He has a direct hyperbilirubinemia of unknown etiology. During his last hospitalization, Dr. Bishop was consulted and did not think that he has chronic liver disease. We will follow. 6. Acute renal failure. He had presented with acute renal failure in February, renal function remains good at this time. 7. Severe protein-calorie malnutrition. His albumin is declining again, he had received IV albumin infusions in the past with temporary improvement. Advised to increase total caloric intake and protein intake. AP/MODL Voice ID: [id number] Report ID: [id number] MEGAN
[2020-03-09] MEDS: VANCOMYCIN 1.5 GM in NA CHLORIDE 0.9% 500 ML IVPB SCH (21:32)
--- NOTE | 2020-03-09 22:48 | CON ---
The patient was admitted on 03/07/[address] Nguyen for multiple medical problems. I was consulted for a paroxysmal atrial flutter. History Of Present Illness: Mr. Camacho is a 74-year-old male we have seen him not too long ago. His main problem really and the reason he was admitted is possible infection of a right axillary node. Samuel Camacho is undergoing chemotherapy for stage IV lymphoma. His last white count is 0.1, hemoglobin i s 7.8, platelet is 11,000, pancytopenic. He came in with swollen right axillary node, was noted to b e in atrial flutter, which is paroxysmal. He is now back in sinus rhythm. Echocardiogram in February of 2020 was normal. He takes flecainide 100 mg b.i.d. for that. He had a negative chest x-ray. Ultra sound of the right axillary lymph node is pending to rule out abscess. At home he takes Lasix, fleca inide, Valtrex, Protonix, prednisone, and allopurinol. His main cardiac issue is hypertension that i s well controlled right now without any medication. Paroxysmal atrial fibrillation, on flecainide. He is not a candidate for anticoagulation. His major problem is stage IV lymphoma. He has been care d per Dr. Benjamin. Mr. Camacho's atrial flutter is paroxysmal. We will continue flecainide, use IV beta-veronika only if h is heart rate goes up over 120 as long as his blood pressure tolerate it. His echocardiogram was nor mal recently. We have absolutely no need to do any further cardiac workup on him at this point. We will follow him pjacqueline SOTO/SHADE Voice ID: [id number] Report ID: [id number]
[2020-03-09] MEDS ORDERED: NA CHLORIDE 0.9% 250 ML ONE (22:54)
[2020-03-10] MEDS: NA CHLORIDE 0.9% 1,000 ML IV SCH ×4 (02:14→21:00)
[2020-03-10 05:35] LABS: Absolute Lymphocytes (CBC) 0.2 K/uL (0.7-4.9); Basophils % 0.4 % (0-1.3); Hematocrit 24.9 % (39.6-49.0); Lymphocytes % 41.8 % (15.3-44.8); MPV 8.8 fL (7.6-11.3); RBC Red Blood Cell Count 2.86 M/uL (4.33-5.43)
[2020-03-10 05:45] LABS: ALT/SGPT 16 U/L (12-78); AST/SGOT 16 U/L (15-37); Albumin 2.1 g/dL (3.4-5.0); Alkaline Phosphatase 80 U/L (45-117); BUN Blood Urea Nitrogen 17 mg/dL (7-18); Bicarbonate 28 mmol/L (21-32); Bilirubin Total 3.1 mg/dL (0.2-1.0); Glucose Level 95 mg/dL (74-106); Potassium 3.4 mmol/L (3.5-5.1); Sodium Level 138 mmol/L (136-145)
[2020-03-10] MEDS ORDERED: POTASSIUM 25 MEQ EFFERV TAB PO ONE ×2 (07:30→09:00)
[2020-03-10] MEDS: VALACYCLOVIR 500 MG TAB PO SCH (09:58)
[2020-03-10] MEDS: CEFEPIME/SWI 1gm 10 ML IV SCH (09:59)
[2020-03-10] MEDS: allopurinoL 100 MG TAB PO SCH (09:59)
[2020-03-10] MEDS: VANCOMYCIN 1.5 GM in NA CHLORIDE 0.9% 500 ML IVPB SCH ×2 (09:59→21:01)
[2020-03-10] MEDS: FLECAINIDE 100 MG TAB PO SCH ×2 (10:00→21:01)
[2020-03-10] MEDS: TBO-FILGRASTIM 480 MCG/0.8 ML SYR SQ SCH (10:01)
[2020-03-10] MEDS: PANTOPRAZOLE 40MG TABLET PO SCH ×2 (10:02→15:23)
[2020-03-10] MEDS: FUROSEMIDE 20 MG TABLET PO SCH (10:03)
--- NOTE | 2020-03-10 13:22 | P.PN ---
Subjective Date of Service: 03/10/20 Chief Complaint: Aplastic anemia, abscess Subjective: Improving (Patient responded appropraitely to pRBC transfusion. No significant symptomatic change. He is less winded and fatigued.) Physical Examination - Vital Signs Temperature: 97.5 F Blood Pressure: 155/68 Pulse: 85 Respirations: 16 Pulse Ox (%): 97 - Physical Exam General: In no apparent distress, Cooperative, Other (lethargic) HEENT: Atraumatic, Normocephalic, EOMI Neck: Supple Respiratory: Clear to auscultation bilaterally, Normal air movement Cardiovascular: Normal pulses, Regular rate/rhythm, Normal S1 S2, Other (lower extremity edema), Edema Gastrointestinal: Normal bowel sounds, Soft and benign, Non-distended, No tenderness Musculoskeletal: No clubbing, No contractures, No erythema, No tenderness, No warmth Integumentary: Other (B/L Le petechiae) Assessment & Plan - Problems (Diagnosis) (1) Lymphoma Current Visit: Yes Status: Acute (2) Atrial fibrillation with RVR Current Visit: Yes Status: Acute (3) History of peptic ulcer disease Current Visit: No Status: Acute (4) Pancytopenia Current Visit: No Status: Acute (5) Neutropenia Current Visit: Yes Status: Acute Physician Review Additional Text: Assessment Patient is a 74 year male currently on chemotherapy for lymphom a who presented to the ER at which shortness of breath and right axillary mass. Developed rapid AFib in the ER. Receive blood and platelet transfusion for pancytopenia. H/H responded partially. He underwent I and D of right axillary mass on 03/08 which yielded hematoma. Currently with a JENNIFER drain with minimal output. Hematology has been consulted for neutropenia. Patient has large B- cell lymphoma and follows up with Hematology. His last dose of Neulasta was 1 week prior to presentation. R axillary mass due to hematoma Symptomatic anemia Pancytopenia AND Neutropenia Atrial fibrillation with RVR Lymphoma PLAN Transfuse 2 units of platelet with goal > 20 Furosemide between transfusion Monitor daily CBC with goal Hb > 8 Agree with granulocyte stimulating agents Continue vancomycin, cefepime and valacyclovir for possible neutropenic fever Blood cultures pending Continue home dose of fleicanide for Afib Surgery monitoring drain output, > 1/2 JENNIFER bag
[2020-03-10] MEDS ORDERED: FUROSEMIDE 40 MG/4 ML VIAL IV ONE (13:36)
[2020-03-10] MEDS ORDERED: POTASSIUM CL SA 10 MEQ TAB PO ONE (16:00)
[2020-03-10] MEDS ORDERED: FUROSEMIDE 40 MG/4 ML VIAL IV SCH (17:00)
[2020-03-10 23:35] LABS: Platelet Estimate ND
[2020-03-11] MEDS: NA CHLORIDE 0.9% 1,000 ML IV SCH ×3 (03:56→18:14)
[2020-03-11] MEDS: VANCOMYCIN 1.5 GM in NA CHLORIDE 0.9% 500 ML IVPB SCH (09:00)
[2020-03-11] MEDS: FLECAINIDE 100 MG TAB PO SCH ×2 (09:02→20:09)
[2020-03-11] MEDS: PANTOPRAZOLE 40MG TABLET PO SCH ×2 (09:02→16:16)
[2020-03-11] MEDS: VALACYCLOVIR 500 MG TAB PO SCH (09:03)
[2020-03-11] MEDS: allopurinoL 100 MG TAB PO SCH (09:03)
[2020-03-11] MEDS: CEFEPIME/SWI 1gm 10 ML IV SCH (09:04)
[2020-03-11] MEDS: TBO-FILGRASTIM 480 MCG/0.8 ML SYR SQ SCH (09:05)
[2020-03-11 09:35] LABS: Absolute Lymphocytes (CBC) 0.2 K/uL (0.7-4.9); Basophils % 0.3 % (0-1.3); Hematocrit 25.1 % (39.6-49.0); Lymphocytes % 25.2 % (15.3-44.8); MPV 7.7 fL (7.6-11.3); RBC Red Blood Cell Count 2.91 M/uL (4.33-5.43)
[2020-03-11 09:49] LABS: BUN Blood Urea Nitrogen 17 mg/dL (7-18); Bicarbonate 28 mmol/L (21-32); Glucose Level 114 mg/dL (74-106); Potassium 3.7 mmol/L (3.5-5.1); Sodium Level 139 mmol/L (136-145)
[2020-03-11 10:24] LABS: Blood Morphology Comment NOT SEEN (NOT SEEN); Platelet Estimate DECR; Urine White Blood Cell Casts OK
--- NOTE | 2020-03-11 12:19 | P.PN ---
Subjective Date of Service: 03/11/20 Chief Complaint: Aplastic anemia, abscess Subjective: Improving (No acute events overngiht. Patient is improving. Responding to current TX.) Physical Examination - Vital Signs Temperature: 97 F Blood Pressure: 153/70 Pulse: 83 Respirations: 18 Pulse Ox (%): 100 - Physical Exam General: In no apparent distress, Cooperative, Other (lethargic) HEENT: Atraumatic, Normocephalic, Other (conjunctival pallor), EOMI Neck: Supple Respiratory: Clear to auscultation bilaterally, Normal air movement Cardiovascular: No edema, Normal pulses, Regular rate/rhythm, Normal S1 S2, Edema (1+ pitting edema) Gastrointestinal: Normal bowel sounds, Soft and benign, Non-distended, No tenderness Musculoskeletal: No clubbing, No swelling, No contractures, No erythema, No tenderness, No warmth Integumentary: Other (petechia resolved) Neurological: Normal speech, Sensation intact, Normal affect Assessment & Plan - Problems (Diagnosis) (1) Lymphoma Current Visit: Yes Status: Acute (2) Atrial fibrillation with RVR Current Visit: Yes Status: Acute (3) History of peptic ulcer disease Current Visit: No Status: Acute (4) Pancytopenia Current Visit: No Status: Acute (5) Neutropenia Current Visit: Yes Status: Acute Physician Review Additional Text: Assessment Patient is a 74 year male currently on chemotherapy for large B cell lymphoma who presented to the ER at which shortness of breath and right axillary mass. Developed rapid AFib in the ER. Resumed on home dose of fleicainide. Receive blood and platelet transfusion for pancytopenia. Rate controlled. He also received granix. He is responding favorably but is still moderately neutropenic. Infectious work up so far negative. Also during this admission, he underwent I and D of right axillary mass on 03/08 which yielded hematoma. JENNIFER drain has been removed. R axillary mass due to hematoma Possible neutropenic fever Symptomatic anemia Pancytopenia Atrial fibrillation with RVR Large B cell lymphoma PLAN Continue granix Monitor daily CBC with goal Hb > 8 Continue vancomycin, cefepime and valacyclovir for possible neutropenic fever Continue home dose of fleicanide for Afib Patient may be discharged in 1 or 2 days
[2020-03-11] MEDS ORDERED: POTASSIUM CL SA 10 MEQ TAB PO ONE (14:40)
--- NOTE | 2020-03-11 17:56 | PN ---
Date of Progress Note: 03/11/2020 Subjective: Mr. Camacho was resting in bed. He said for the first time ever, he had pain in the right axillary incision site, which was relieved by a hydrocodone earlier today. He denies any fever or chills. Continues to be extremely fatigued. Objective: Vital Signs: He has been afebrile for the past 48 hours. Temperature was 97 Fahrenheit at 8 a.m. this morning. Pulse 83, respirations 20, blood pressure 153/70. He is saturating at 100% on room air. General: Reveals pallor. No cyanosis or clubbing noted. Skin:Icterus+. No evidence of bleeding from the mouth, nose, or gum. He continues to have bruising and petechiae around the right axilla and adjacent chest wall, around the knees and shins. Lymph Node: Survey reveals no palpable lymphadenopathy in the neck or the left axilla or groin. Chest: Clear to auscultation. Heart: Sounds reveal normal S1 and S2. No gallops or murmurs. Abdomen: Soft, nontender. Bowel sounds are present. Neurologic: He is alert and oriented. Lab Data: From this morning reveals a white count of 0.8 with an absolute neutrophil count of 500. Hemoglobin has been stable at 8.7 g/dL, platelet count was 29,000 this morning. Chemistries reveal normal electrolytes, BUN and creatinine. Bilirubin remains elevated at 3.1 with a direct hyperbilirubinemia. Albumin is low at 2.1 g/dL. Assessment And Plan: 1. Pancytopenia. White blood count has gone up, would continue Granix 480 mcg subcu daily until his absolute neutrophil count is more than 2000. Continue with packed red blood cell transfusions to keep his hemoglobin at 8 g/dL, and platelet transfusions to keep his platelet count at 30,000 or more at all times. 2. Neutropenic fever. It seems to have resolved. Continue antibiotics and suggest you switch him to p.o. Levaquin 500 mg p.o. daily for chemoprophylaxis given his chronic neutropenia. 3. Diffuse large B-cell lymphoma. The right axillary mass biopsy showed no evidence of lymphoma recurrence, just necrotic tissue and hematoma. We discussed that he would not be able to get another course of chemotherapy until we see an improvement in his counts. We will see him in clinic on Saturday and recheck counts if he is discharged home over the weekend. 4. Tachycardia. Was seen by Dr. Marin who suggested continuing flecainide for the paroxysmal atrial flutter and beta blockers if he has recurrent tachycardia. Anticoagulation is not recommended given his pancytopenia. 5. Jaundice. He seems to have a persistent jaundice of unknown etiology. We will have him follow up with Dr. Bishop as an outpatient. ZOE/SHADE Voice ID: [id number] Report ID: [id number] MTDD
[2020-03-11] MEDS ORDERED: VANCOMYCIN 1.25 GM in NA CHLORIDE 0.9% 250 ML IVPB SCH (21:00)
[2020-03-12 05:06] LABS: BUN Blood Urea Nitrogen 20 mg/dL (7-18); Bicarbonate 29 mmol/L (21-32); Glucose Level 95 mg/dL (74-106); Sodium Level 140 mmol/L (136-145)
[2020-03-12] MEDS: NA CHLORIDE 0.9% 1,000 ML IV SCH ×4 (07:34→23:50)
[2020-03-12 08:11] LABS: Absolute Lymphocytes (CBC) 0.5 K/uL (0.7-4.9); Basophils % 0.2 % (0-1.3); Hematocrit 28.8 % (39.6-49.0); Lymphocytes % 21.6 % (15.3-44.8); RBC Red Blood Cell Count 3.27 M/uL (4.33-5.43)
[2020-03-12] MEDS: TBO-FILGRASTIM 480 MCG/0.8 ML SYR SQ SCH (08:59)
[2020-03-12] MEDS: CEFEPIME/SWI 1gm 10 ML IV SCH (08:59)
[2020-03-12] MEDS: PANTOPRAZOLE 40MG TABLET PO SCH ×2 (09:00→16:10)
[2020-03-12] MEDS: allopurinoL 100 MG TAB PO SCH (09:00)
[2020-03-12] MEDS: VALACYCLOVIR 500 MG TAB PO SCH (09:00)
[2020-03-12] MEDS: FLECAINIDE 100 MG TAB PO SCH ×2 (09:00→19:48)
[2020-03-12] MEDS ORDERED: NA CHLORIDE 0.9% 500 ML ONE (12:15)
--- NOTE | 2020-03-12 12:18 | P.PN ---
Subjective Date of Service: 03/12/20 Chief Complaint: Aplastic anemia, abscess Subjective: Improving (Feeling energetic. Patient concerned about JENNIFER drain management after discharge) Physical Examination - Vital Signs Temperature: 97.5 F Blood Pressure: 126/65 Pulse: 83 Respirations: 16 Pulse Ox (%): 99 - Physical Exam General: In no apparent distress, Cooperative, Other (lethargic) HEENT: Atraumatic, EOMI Neck: Supple Respiratory: Clear to auscultation bilaterally, Normal air movement Cardiovascular: Normal pulses, Regular rate/rhythm, Normal S1 S2, Edema (pedal edema nearly resolved) Gastrointestinal: Normal bowel sounds, Soft and benign, Non-distended, No tenderness Musculoskeletal: No clubbing, No swelling, No contractures, No erythema, No tenderness, No warmth Integumentary: Other (petechiae resolved) Neurological: Normal speech, Sensation intact, Normal affect Assessment & Plan - Problems (Diagnosis) (1) Lymphoma Current Visit: Yes Status: Acute (2) Atrial fibrillation with RVR Current Visit: Yes Status: Acute (3) History of peptic ulcer disease Current Visit: No Status: Acute (4) Pancytopenia Current Visit: No Status: Acute (5) Neutropenia Current Visit: Yes Status: Acute Physician Review Additional Text: Assessment Patient is a 74 year male currently on chemotherapy for large B cell lymphoma who presented to the ER at which shortness of breath and right axillary mass. Developed rapid AFib in the ER. Resumed on home dose of fleica inide. Receive blood and platelet transfusion for pancytopenia. Rate controlled. He also received granix. He is responding favorably. Neutropenia resolved, ANC ~2,000. Infectious work up was negative. Also during this admission, he underwent I and D of right axillary mass on 03/08 which yielded hematoma. JENNIFER drain is still in place with high output, > 3/4 full. R axillary mass due to hematoma Possible neutropenic fever Symptomatic anemia Pancytopenia Atrial fibrillation with RVR Large B cell lymphoma PLAN Stop granix tomorrow Transfuse 2 units of platelet with goal PLT> 35 Monitor daily CBC with goal Hb > 8 Transition antibiotics to levofloxacin PO. Continue home dose of fleicanide for Afib Surgery anticpates that patient will leave with JENNIFER drain SW consult placed for Home health. HH RN will need to update Dr. García regarding JENNIFER drain output
[2020-03-12] MEDS: levoFLOXacin 750 MG TAB PO SCH (12:38)
[2020-03-12] MEDS ORDERED: NA CHLORIDE 0.9% 250 ML ONE (13:52)
[2020-03-13] MEDS ORDERED: VANCOMYCIN 1.25 GM in NA CHLORIDE 0.9% 250 ML IVPB SCH (03:00)
[2020-03-13] MEDS: FLECAINIDE 100 MG TAB PO SCH ×2 (09:24→21:30)
[2020-03-13] MEDS: PANTOPRAZOLE 40MG TABLET PO SCH ×2 (09:25→16:48)
[2020-03-13] MEDS: TBO-FILGRASTIM 480 MCG/0.8 ML SYR SQ SCH (09:25)
[2020-03-13] MEDS: allopurinoL 100 MG TAB PO SCH (09:25)
[2020-03-13] MEDS: VALACYCLOVIR 500 MG TAB PO SCH (09:29)
[2020-03-13] MEDS: levoFLOXacin 750 MG TAB PO SCH (09:29)
[2020-03-13 10:26] LABS: Absolute Lymphocytes (CBC) 0.3 K/uL (0.7-4.9); Basophils % 0.1 % (0-1.3); Hematocrit 22.5 % (39.6-49.0); Lymphocytes % 8.8 % (15.3-44.8); MPV 9.2 fL (7.6-11.3); RBC Red Blood Cell Count 2.59 M/uL (4.33-5.43)
--- NOTE | 2020-03-13 12:00 | P.DS ---
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 He was admitted with fatigue and R axillary mass. The mass was drained by surgery and yielded hematoma. He currently has a JENNIFER drain in place with high output. He was in rapid afib on admission, and pancytopenic with concern for neutropenic fever. Infectious work up was negative. He required several pRBC and platelet transfusion. Oncology also started patient on granix while he was on broad spectrum antibiotics. Patient has done well. He can be discharge with the JENNIFER drain, which will be monitored by a home health nurse to whom surgery will provide instructions for removal. Vital Signs/Physical Exam: Temp Pulse Resp BP Pulse Ox 96.9 F 111 H 16 129/62 96 03/13/20 08:00 03/13/20 08:00 03/13/20 08:00 03/13/20 08:00 03/13/20 08:00 HEENT: Atraumatic, Normocephalic, EOMI Neck: Supple Respiratory: Clear to auscultation bilaterally, Normal air movement Cardiovascular: No edema, Normal pulses, Regular rate/rhythm, Normal S1 S2 Gastrointestinal: Normal bowel sounds, Soft and benign, Non-distended, No tenderness Musculoskeletal: No clubbing, No swelling, No contractures, No erythema, No tenderness, No warmth, Other (JENNIFER drain, R axilla) Neurological: Normal speech, Normal tone, Sensation intact, Normal affect Laboratory Data at Discharge: WBC 3.3 K/uL (4.3-10.9) L D 03/13/20 09:21 Hgb 7.7 g/dL (13.6-17.9) L* 03/13/20 09:21 Hct 22.5 % (39.6-49.0) L D 03/13/20 09:21 Plt Count 43 K/uL (152-406) L* D 03/13/20 09:21 PT 14.7 SECONDS (9.5-12.5) H 03/07/20 17:05 INR 1.25 03/07/20 17:05 APTT 29.9 SECONDS (24.3-36.9) 03/07/20 17:05 Sodium 140 mmol/L (136-145) 03/12/20 04:40 Potassium 4.0 mmol/L (3.5-5.1) 03/12/20 04:40 BUN 20 mg/dL (7-18) H 03/12/20 04:40 Creatinine 0.69 mg/dL (0.55-1.3) 03/12/20 07:59 Glucose 95 mg/dL (74-106) 03/12/20 04:40 Magnesium 2.3 mg/dL (1.8-2.4) D 03/08/20 06:50 Total Bilirubin 3.1 mg/dL (0.2-1.0) H 03/10/20 04:45 AST 16 U/L (15-37) 03/10/20 04:45 ALT 16 U/L (12-78) 03/10/20 04:45 Alkaline Phosphatase 80 U/L (45-117) 03/10/20 04:45 Lipase 69 U/L (73-393) L 03/07/20 17:05 Home Medications: Flecainide [Tambocor*] 100 mg PO BID 02/12/20 Furosemide [Lasix*] 20 mg PO BID 03/07/20 Pantoprazole Sodium [Protonix] 40 mg PO BID 03/07/20 Valacyclovir [Valtrex*] 500 mg PO DAILY 03/07/20 allopurinoL [Zyloprim*] 100 mg PO DAILY 03/07/20 predniSONE [Prednisone*] 30 mg PO SEECOM 03/07/20 Hydrocodone 7.5/APAP 325 [Freeburn 7.5/325 mg*] 1 tab PO Q6H PRN tab 03/13/20 levoFLOXacin [Levaquin*] 750 mg PO DAILY #7 tab 03/13/20 New Medications: levoFLOXacin [Levaquin*] 750 mg PO DAILY #7 tab Followup: Romaine Patterson MD [ACTIVE - CAN ADMIT] -
[2020-03-13] MEDS ORDERED: HEPARIN SOD 100 UNIT/ML FLUSH IV PRN (12:32)
--- NOTE | 2020-03-13 13:56 | P.PN ---
Subjective Date of Service: 03/13/20 Chief Complaint: Aplastic anemia, abscess Subjective: Improving (Patient is doing much better. He is staying in the hospital for PT, pending home health arranagements. He was supposed to be discharged today but the patient, his daughter and I agreed to wait for PT.) Physical Examination - Vital Signs Temperature: 97.4 F Blood Pressure: 129/58 Pulse: 87 Respirations: 16 Pulse Ox (%): 100 - Physical Exam General: In no apparent distress, Cooperative, Other (lethargic) HEENT: Atraumatic, Normocephalic, EOMI Neck: Supple Respiratory: Clear to auscultation bilaterally, Normal air movement Cardiovascular: No edema, Normal pulses, Regular rate/rhythm, Normal S1 S2 Gastrointestinal: Normal bowel sounds, Soft and benign, Non-distended, No tenderness Musculoskeletal: No clubbing, No swelling, No contractures, No erythema, No tenderness, No warmth Integumentary: No rashes, No breakdown, No significant lesion, No tenderness/swelling, No erythema, No warmth, No cyanosis Neurological: Normal speech, Sensation intact, Normal affect - Studies Microbiology Data (last 24 hrs): 03/07/20 17:05 Blood - Blood Aerobic Blood Culture - Final No growth in 5 days. 03/07/20 17:05 Blood - Blood Anaerobic Blood Culture - Final 03/07/20 17:05 Blood - Blood Aerobic Blood Culture - Final No growth in 5 days. 03/07/20 17:05 Blood - Blood Anaerobic Blood Culture - Final Assessment & Plan - Problems (Diagnosis) (1) Lymphoma Current Visit: Yes Status: Acute (2) Atrial fibrillation with RVR Current Visit: Yes Status: Acute (3) History of peptic ulcer disease Current Visit: No Status: Acute (4) Pancytopenia Current Visit: No Status: Acute (5) Neutropenia Current Visit: Yes Status: Acute Physician Review Additional Text: Assessment Patient is a 74 year male currently on chemotherapy for large B cell lymphoma who presented to the ER at which shortness of breath and right axillary mass. Developed rapid AFib in the ER. Resumed on home dose of fleicainide. Receive blood and platelet transfusion for pancytopenia. Rate controlled. He also received granix. He is responding favorably. Neutropenia resolved, ANC ~2,000. Infectious work up was negative. Also during this admission, he underwent I and D of right axillary mass on 03/08 which yielded hematoma. JENNIFER drain is still in place with high output. He is medically cleared pending PT/OT arrangements R axillary mass due to hematoma Possible neutropenic fever Symptomatic anemia Pancytopenia Atrial fibrillation with RVR Large B cell lymphoma PLAN PT/OT while in-house Stop granix Continue anti-microbial ppx with valacyclovir and levofloxacin PO. Continue home dose of fleicanide for Afib Surgery anticipates that patient will leave with JENNIFER drain SW consult placed for Home health. HH RN will need to update Dr. García regarding JENNIFER drain output
[2020-03-13] MEDS: NA CHLORIDE 0.9% 1,000 ML IV SCH (14:00)
[2020-03-14] MEDS: NA CHLORIDE 0.9% 1,000 ML IV SCH (03:16)
[2020-03-14] MEDS: VALACYCLOVIR 500 MG TAB PO SCH (08:50)
[2020-03-14] MEDS: PANTOPRAZOLE 40MG TABLET PO SCH ×2 (09:00→17:08)
[2020-03-14] MEDS: levoFLOXacin 750 MG TAB PO SCH (09:00)
[2020-03-14] MEDS: allopurinoL 100 MG TAB PO SCH (09:00)
[2020-03-14] MEDS: FLECAINIDE 100 MG TAB PO SCH ×2 (09:00→20:39)
--- NOTE | 2020-03-14 12:58 | P.DS ---
Admission Date: 03/07/20 Discharge Date: 03/15/20 Primary Care Provider: Oncology-Dr. Benjamin Disposition: DC HOME/HOME HEALTH CARE Discharge Condition: FAIR Reason for Admission: Aplastic anemia, abscess Consultations: Cardiology-Dr. Marin Oncology-Dr. Benjamin Surgery-Dr. Patterson Procedures: Right Axillary US: FINDINGS: Large irregular complex mass is present in the region, likely neoplastic, measuring approximately 8 x 5 cm. There appears to be a hematoma adjacent to the large mass laterally measuring 5 cm. Surgery: Date of Procedure: 03/08/2020 Surgeon: Romaine Patterson MD Music Autographer: PK Looney Preoperative Diagnoses: Right axillary hematoma and right axillary mass and stage IV lymphoma. Postoperative Diagnoses: Right axillary hematoma and right axillary mass and stage IV lymphoma. Procedure: Incision and drainage of right axillary hematoma and biopsy of right axillary mass. Estimated Blood Loss: Minimal. Specimens: Fluid from the right axilla and biopsy of the mass. Pathology: Diagnosis-right axillary mass tissue, excision: Skin and subcutaneous tissue with hemorrhage, reactive fibrosis and fat necrosis compatible with history of hematoma No malignancy identified Flow cytometry shows no evidence of non-Hodgkin's lymphoma Microscopic description: Sections show skin and subcutaneous adipose tissue with reactive fibrosis and hemorrhage compatible with hematoma. There is some fat necrosis. No malignancy identified. Medical Problem List: Right Large irregular complex mass measuring 8 x 5 cm with hematoma adjacent to the mass laterally measuring 5 cm axillary mass status post incision/drainage with JENNIFER tube in place along with biopsy of right axillary mass History of Large B-cell lymphoma Atrial fibrillation with RVR not on chronic anti coagulation therapy Pancytopenia with neutropenia, requiring blood/platelet transfusions GERD Brief History of Present Illness: 74-year-old male with history of large B-cell lymphoma currently on chemotherapy. Patient was admitted for fatigue and right axillary enlargement. Patient found to have hematoma. Patient was admitted for further evaluation and treatment. Hospital Course: Patient presented with right large irregular complex mass measuring 8 x 5 cm with hematoma adjacent to the mass laterally measuring 5 cm. Surgery was consulted. Surgical intervention was required and performed. Incision and drainage of the hematoma was performed. Biopsy of right axillary mass also done. Pathology shows no malignancy. Findings consistent of hematoma. JENNIFER tube now in place. This has remained stable. Patient will continue with Augmentin 500 mg twice daily for the next 7 days. Patient will continue to monitor output of JENNIFER tube. Once less than 30 cc within 24 hr then JENNIFER tube can be removed. This will be done with the help of home health which is to be arranged prior to discharge. Education will be provided on JENNIFER tube with patient and daughter. Recommend follow up with surgery to further monitor and address. Patient with pancytopenia and neutropenia. Patient also with underlying large B-cell lymphoma with recent history of chemotherapy. Patient received blood and platelet transfusion during the course of his stay. Hemoglobin stable at 7.8. Platelet count of 30. Case discussed in detail with oncology. CBC remained stable. Patient can be discharged home. Patient will need a follow up with oncology tomorrow. Repeat CBC will be performed and monitor. Patient may still require outpatient blood and platelet transfusion. This will be coordinated with Oncology. Oncology also mentioned that the patient may also require bone marrow biopsy in the near future to further address especially if he continues with pancytopenia. At discharge patient will continue with prednisone 10 mg daily. This will be tapered and monitored closely by oncology. Further recommendations will come from Oncology at followup tomorrow. Patient with history of atrial fibrillation. Patient had RVR but this resolved. Patient medication flecainide was restarted. At discharge patient will continue with his current medication of flecainide 100 mg 1 pill twice daily. Patient with bilateral lower extremity edema. At discharge patient may continue with Lasix 20 mg 1 pill twice daily. Patient may continue with a 1500 cc per day fluid restriction. Follow up with PCP to further monitor and adjust medication. Patient with GERD. At discharge patient will continue with Protonix 40 mg 1 pill twice daily. Recommend follow up with GI as directed in the past. Vital Signs/Physical Exam: Temp Pulse Resp BP Pulse Ox 97.5 F 96 H 14 138/65 100 03/14/20 04:00 03/14/20 04:00 03/14/20 04:00 03/14/20 04:00 03/14/20 04:00 General: Alert, In no apparent distress, Oriented x3, Cooperative HEENT: Atraumatic Neck: Supple Respiratory: Clear to auscultation bilaterally, Normal air movement Cardiovascular: Normal pulses, Regular rate/rhythm Gastrointestinal: Normal bowel sounds Integumentary: Tenderness/swelling (Edema to the lower extremities bilateral. JENNIFER tube in place to the right axillary area.) Neurological: Normal speech, Normal strength at 5/5 x4 extr Laboratory Data at Discharge: WBC 3.3 K/uL (4.3-10.9) L D 03/13/20 09:21 Hgb 7.7 g/dL (13.6-17.9) L* 03/13/20 09:21 Hct 22.5 % (39.6-49.0) L D 03/13/20 09:21 Plt Count 43 K/uL (152-406) L* D 03/13/20 09:21 PT 14.7 SECONDS (9.5-12.5) H 03/07/20 17:05 INR 1.25 03/07/20 17:05 APTT 29.9 SECONDS (24.3-36.9) 03/07/20 17:05 Sodium 140 mmol/L (136-145) 03/12/20 04:40 Potassium 4.0 mmol/L (3.5-5.1) 03/12/20 04:40 BUN 20 mg/dL (7-18) H 03/12/20 04:40 Creatinine 0.69 mg/dL (0.55-1.3) 03/12/20 07:59 Glucose 95 mg/dL (74-106) 03/12/20 04:40 Magnesium 2.3 mg/dL (1.8-2.4) D 03/08/20 06:50 Total Bilirubin 3.1 mg/dL (0.2-1.0) H 03/10/20 04:45 AST 16 U/L (15-37) 03/10/20 04:45 ALT 16 U/L (12-78) 03/10/20 04:45 Alkaline Phosphatase 80 U/L (45-117) 03/10/20 04:45 Lipase 69 U/L (73-393) L 03/07/20 17:05 Home Medications: Flecainide [Tambocor*] 100 mg PO BID 02/12/20 Furosemide [Lasix*] 20 mg PO BID 03/07/20 Pantoprazole Sodium [Protonix] 40 mg PO BID 03/07/20 Valacyclovir [Valtrex*] 500 mg PO DAILY 03/07/20 allopurinoL [Zyloprim*] 100 mg PO DAILY 03/07/20 predniSONE [Prednisone*] 30 mg PO SEECOM 03/07/20 Amoxicillin/Potassium Clav [Augmentin 500-125 Tablet] 1 each PO BID #14 tablet 03/15/20 predniSONE [Deltasone*] 10 mg PO DAILY #7 tab 03/15/20 New Medications: Amoxicillin/Potassium Clav [Augmentin 500-125 Tablet] 1 each PO BID #14 tablet predniSONE [Deltasone*] 10 mg PO DAILY #7 tab Patient Discharge Instructions: 1. Recommend follow up with PCP in 1 week to follow up this hospitalization. 2. Patient presented with right large irregular complex mass measuring 8 x 5 cm with hematoma adjacent to the mass laterally measuring 5 cm. Surgery was consulted. Surgical intervention was required and performed. Incision and drainage of the hematoma was performed. Biopsy of right axillary mass also done. Pathology shows no malignancy. Findings consistent of hematoma. JENNIFER tube now in place. This has remained stable. Patient will continue with Augmentin 500 mg twice daily for the next 7 days. Patient will continue to monitor output of JENNIFER tube. Once less than 30 cc within 24 hr then JENNIFER tube can be removed. This will be done with the help of home health which is to be arranged prior to discharge. Education will be provided on JENNIFER tube with patient and daughter. Recommend follow up with surgery to further monitor and address. 3. Patient with pancytopenia and neutropenia. Patient also with underlying large B-cell lymphoma with recent history of chemotherapy. Patient received blood and platelet transfusion during the course of his stay. Hemoglobin stable at 7.8. Platelet count of 30. Case discussed in detail with oncology. CBC remained stable. Patient can be discharged home. Patient will need a follow up with oncology tomorrow. Repeat CBC will be performed and monitor. Patient may still require outpatient blood and platelet transfusion. This will be coordinated with Oncology. Oncology also mentioned that the patient may also require bone marrow biopsy in the near future to further address especially if he continues with pancytopenia. At discharge patient will continue with prednisone 10 mg daily. This will be tapered and monitored closely by oncology. Further recommendations will come from Oncology at followup tomorrow. 4. Patient with history of atrial fibrillation. Patient had RVR but this resolved. Patient medication flecainide was restarted. At discharge patient will continue with his current medication of flecainide 100 mg 1 pill twice daily. 5. Patient with bilateral lower extremity edema. At discharge patient may continue with Lasix 20 mg 1 pill twice daily. Patient may continue with a 1500 cc per day fluid restriction. Follow up with PCP to further monitor and adjust medication. 6. Patient with GERD. At discharge patient will continue with Protonix 40 mg 1 pill twice daily. Recommend follow up with GI as directed in the past. Diet: AHA Activity: Fall precautions Followup: Clotilde Jordan MD [Primary Care Provider] - 1 Week (Call to make an appointmen.t) Romaine Patterson MD [ACTIVE - CAN ADMIT] - Time spent managing pt's care (in minutes): 55
[2020-03-14 13:31] LABS: Absolute Lymphocytes (CBC) 0.4 K/uL (0.7-4.9); Basophils % 0.1 % (0-1.3); Lymphocytes % 7.9 % (15.3-44.8); MPV 9.3 fL (7.6-11.3); RBC Red Blood Cell Count 2.51 M/uL (4.33-5.43)
[2020-03-14 13:37] LABS: Blood Morphology Comment NOT SEEN (NOT SEEN); Dohle Bodies PRESENT; Platelet Estimate DECR; Toxic Granulation PRESENT
[2020-03-14] MEDS ORDERED: NA CHLORIDE 0.9% 250 ML IV SCH (14:00)
--- NOTE | 2020-03-14 15:45 | P.PN ---
Subjective Date of Service: 03/14/20 Primary Care Provider: Oncology-Dr. Benjamin Chief Complaint: Aplastic anemia, abscess Subjective: Improving Physical Examination - Vital Signs Temperature: 97.8 F Blood Pressure: 140/63 Pulse: 84 Respirations: 18 Pulse Ox (%): 100 - Physical Exam General: Alert, Cooperative HEENT: Atraumatic Neck: Supple Respiratory: Clear to auscultation bilaterally, Normal air movement Cardiovascular: Normal pulses, Regular rate/rhythm Integumentary: Tenderness/swelling (Edema to the lower extremities noted) Neurological: Normal speech - Studies Medications List Reviewed: Yes Assessment & Plan Discharge Plan: Home Plan to discharge in: 24 Hours Physician Review Additional Text: Medical Problem List: Right axillary hematoma status post drainage with JENNIFER tube in place Large B-cell lymphoma Atrial fibrillation with RVR Pancytopenia with neutropenia GERD Plan: Right axillary hematoma status post drainage with JENNIFER tube in place: Continue to monitor drainage. Patient on antibiotic therapy. Anticipate discharge tomorrow on Levaquin. Large B-cell lymphoma: Continue to monitor closely. Patient will require transfusion at this time. Maintain hemoglobin above 8.0. Anticipate discharge tomorrow. Atrial fibrillation with RVR: Continue current medication. Patient normal sinus rhythm. Pancytopenia with neutropenia: As mentioned above patient will receive transfusion. Maintain hemoglobin above 8.0. GERD: Continue with medication. Time Spent Managing Pts Care (In Minutes): 55
[2020-03-14] MEDS ORDERED: FUROSEMIDE 20 MG/ 2ML VIAL IV ONE (17:43)
[2020-03-14 19:32] LABS: Hematocrit 25.9 % (39.6-49.0)
[2020-03-15 08:21] LABS: Absolute Lymphocytes (CBC) 0.5 K/uL (0.7-4.9); Basophils % 0.1 % (0-1.3); Hematocrit 22.8 % (39.6-49.0); Lymphocytes % 14.3 % (15.3-44.8); MPV 9.4 fL (7.6-11.3)
[2020-03-15] MEDS: PANTOPRAZOLE 40MG TABLET PO SCH ×2 (09:02→16:12)
[2020-03-15] MEDS: allopurinoL 100 MG TAB PO SCH (09:02)
[2020-03-15] MEDS: VALACYCLOVIR 500 MG TAB PO SCH (09:03)
[2020-03-15] MEDS: FLECAINIDE 100 MG TAB PO SCH (09:03)
[2020-03-15] MEDS: levoFLOXacin 750 MG TAB PO SCH (09:05)
[2020-03-15 09:49] LABS: BUN Blood Urea Nitrogen 18 mg/dL (7-18); Bicarbonate 31 mmol/L (21-32); Glucose Level 120 mg/dL (74-106); Potassium 3.6 mmol/L (3.5-5.1); Sodium Level 142 mmol/L (136-145)
[2020-03-15 10:46] LABS: Blood Morphology Comment NOTED (NOT SEEN); Dohle Bodies PRESENT; Platelet Estimate DECR; Polychromasia 1+; Toxic Granulation PRESENT
[2020-03-15 12:21] VITALS: O2SAT 100
[2020-03-15 16:51] VITALS: BP 142/65; TEMP 97.8
[2020-03-15] MEDS ORDERED: HEPARIN 500 UNIT/5 ML SYR IV PRN (17:14)
== END 2020-03-15 17:45 | disposition home health service (06) | DRG 555 ==
LOC: ER 15:41 → ERHOLD 18:31 → 2ND 20:04
PROVIDERS: ADMIT Internal Medicine; ATTEND Family Medicine
PROC: 30233N1 Transfusion of Nonautologous Red Blood Cells into Peripheral Vein, Percutaneous Approach (ICD-10-PCS; 2020-03-07)
PROC: 0JBD0ZX Excision of Right Upper Arm Subcutaneous Tissue and Fascia, Open Approach, Diagnostic (ICD-10-PCS; 2020-03-08)
PROC: 30233R1 Transfusion of Nonautologous Platelets into Peripheral Vein, Percutaneous Approach (ICD-10-PCS; 2020-03-08)
PROC: 0J9D00Z Drainage of Right Upper Arm Subcutaneous Tissue and Fascia with Drainage Device, Open Approach (ICD-10-PCS; principal; 2020-03-08 13:00)
DX: M79.81 Nontraumatic hematoma of soft tissue (principal); E43 Unspecified severe protein-calorie malnutrition; C83.34 Diffuse large B-cell lymphoma, lymph nodes of axilla and upper limb; I48.92 Unspecified atrial flutter; I47.1 Supraventricular tachycardia; D61.818 Other pancytopenia; R17 Unspecified jaundice; N17.9 Acute kidney failure, unspecified; I10 Essential (primary) hypertension; K21.9 Gastro-esophageal reflux disease without esophagitis; I48.0 Paroxysmal atrial fibrillation; S40.021A Contusion of right upper arm, initial encounter; R50.81 Fever presenting with conditions classified elsewhere; Z79.52 Long term (current) use of systemic steroids; Z88.1 Allergy status to other antibiotic agents; Z79.899 Other long term (current) drug therapy; Z88.0 Allergy status to penicillin; Z68.27 Body mass index [BMI] 27.0-27.9, adult; Z11.59 Encounter for screening for other viral diseases
CPT/HCPCS: 36415; 36430; 71045; 76881; 80048; 80053; 80076; 80202; 81003; 81015; 82248; 82550; 82565; 83605; 83615; 83690; 83735; 84132; 84145; 84484; 85014; 85018; 85025; 85044; 85049; 85610; 85730; 86850; 86900; 86901; 86922; 87040; 87070; 87075; 87205; 88108; 88305; 93005; 96360; 96365; 96372; 96375; 97161; 99211; 99215; 99285; J0610; J0692; J1200; J1447; J1642; J1940; J2175; J2250; J2370; J2704; J3010; J3370; J7030; J7040; J7050; P9016; P9035; P9037; Q5105; U0002

== ENCOUNTER 2020-05-13 09:05 | Day surgery (SDC) | payer OTHER ==
[2020-05-13] MEDS ORDERED: NA CHLORIDE 0.9% 250 ML ONE ×2 (09:37→13:06)
[2020-05-13 10:01] VITALS: BP 119/85; TEMP 97.4; O2SAT 96
--- OUTSIDE RECORDS SUMMARY | 2020-05-13 10:14 | XMS REPORT | Clinical Summary ---
:1945 Author Organization [facility] Address [address] [place] [address] Care Team Providers Name Role Phone Unavailable Primary Care Provider Unavailable Allergies No Known Allergies Medications Medication Sig Dispensed Refills Start Date End Date Status flecainide Take 100 mg 0 Active (TAMBOCOR) 100 MG by mouth 2 tablet (two) times daily. amLODIPine Take 5 mg by 0 Active (NORVASC) 5 MG mouth daily. tablet pantoprazole Take 1 tablet 30 tablet 0 01/18/2020 01/18/2020 D iscontinued (PROTONIX) 40 MG (40 mg total) tablet by mouth daily for 30 days. pantoprazole Take 1 tablet 60 tablet 0 01/18/2020 01/19/2020 D iscontinued (PROTONIX) 40 MG (40 mg total) tablet by mouth 2 (two) times daily for 30 days. pantoprazole Take 1 tablet 180 tablet 0 01/19/2020 04/18/2020 (PROTONIX) 40 MG (40 mg total) tablet by mouth 2 (two) times daily for 90 days. Active Problems Problem Noted Date Acute [...] ey injury) (HCC); MD Enrique Essential hypertension; [place] Keatingintestosman lanza hemorrhage with melena; Thao Acute gastric u lcer with hemorrhage MD Wong after 05/13/2019 Social History Tobacco Use Types Packs/Day Years [...] 01/19/2020 7:00 AM CDT Plan of Treatment Health Maintenance Due Date Last Done Comments COLON CANCER SCREENING COLONOSCOPY 1945 PNEUMOCOCCAL 65+ LOW/MEDIUM RISK (1 of 2 - PCV13) 2009 Medicare IPPE (WELCOME TO MEDICARE) 08/05/2019 INFLUENZA VACCINE (#1) 2020 Procedures Procedure Name Priority Date/Time Associated Diagnosis [...] procedure are in the results section. after 05/13/2019 Results SARS-CoV2/RT-PCR ([facility]) (02/12/2020 11:50 AM CDT)Only the most recent of2 resultswithin the time period is included. SARS-COV2/RT-PCR Not Detected Not Detected, Negative [facility] [place] SARS-COV-2 PERFORMING LAB [facility] Specimen Other Narrative Performed At Negative results do not preclude SARS-CoV-2 [facility] infection and should not be used as [...] the Act. Fact Sheet for Healthcare Providers: https://www.[employer]/Documents/Xpert%20Xpre ss%20SARS%20CoV-2/Fact%20Sheets/302-3802%20SAR S-COV-2%20HEALTHCARE%20PROVIDERS%20FACT%20SHEE T.pdf Fact Sheet for Healthcare Patients: https://www.[employer]/Documents/Xpert%20Xpre ss%20SARS%20CoV-2/Fact%20Sheets/302-3801%20SAR S-COV-2%20PATIENT%20FACT%20SHEET.pdf Performing Laboratory: [address] [place] [address] Performing Organization Address City/State/Zipcode Phone Number [address] [address] CENTER EKG-SCANNED (01/20/2020 1:53 PM [...] included. WBC 5.6 3.5 - 10.5 K/L [facility] H [facility] RBC 2.50 (L) 4.63 - 6.08 M/L [facility] Hemoglobin 7.4 (L) 13.7 - 17.5 GM/DL [facility] Hematocrit 23.1 (L) 40.1 - 51.0 % [facility] MCV 92.4 (H) 79.0 - 92.2 fL [facility] MCH 29.6 25.7 - 32.2 pg [facility] MCHC 32.0 (L) 32.3 - 36.5 GM/DL [facility] RDW 16.9 (H) 11.6 - 14.4 % [facility] Platelets 156 150 - 450 K/CU MM [facility] MPV 11.9 9.4 - 12.4 fL [facility] nRBC 0 0 - 0 /100 WBC [facility] % Neutros 73 % [facility] % Lymphs 13 % [facility] % Monos 9 % [facility] % Eos 2 % [facility] % Baso 0 % [facility] # Neutros 4.11 1.78 - 5.38 K/L [facility] # Lymphs 0.74 (L) 1.32 - 3.57 K/L [facility] # Monos 0.53 0.30 - 0.82 K/L [facility] # Eos 0.12 0.04 - 0.54 K/L [facility] # Baso 0.02 0.01 - 0.08 K/L [facility] Immature Granulocytes-Relative 2 (H) 0 - 1 % C HI [facility] Specimen Blood Performing Organization Address City/State/Zipcode Phone Number [facility] [address] [place] [address] CENTER Prothrombin time/INR (01/19/2020 3:55 AM CDT)Only the most recent of3 results within the time period is included. Protime 15.3 (H) 11.9 - 14.2 seconds [facility] INR 1.2 <=5.9 [facility] Specimen Blood Narrative Performed At Effective 12/31/2018: PT Reference Range [facility] Change New: 11.9-14.2Previous: 11.7-14.7 RECOMMENDED COUMADIN/WARFARIN INR THERAPY RANGES STANDARD DOSE: 2.0-3.0Includes: PROPHYLAXIS for venous thrombosis, systemic embolization; TREATMENT for venous thrombosis and/or pulmonary embolus. HIGH RISK: Target INR is 2.5-3.5 for patients wiht mechanical heart valves. Performing Organization Address City/[facility]/Zipcode Phone Number [address] [address] CENTER Magnesium (01/19/2020 3:55 AM CDT)Only the most recent of3 resultswithin the time period is included. Magnesium 2.2 1.6 - 2.6 mg/dL [facility] Specimen Blood Narrative Performed At [place] Alarm Inspector ID - AYAZ Horne [facility] IC[facility] CENTER Performing Organization Address City/[facility] Phone Number [address] [phone] CENTER Basic Metabolic Panel (01/19/2020 3:55 AM CDT)Only the most recent of3 results within the time period is included. Sodium 135 (L) 136 - 145 meq/L [facility] Potassium 3.5 3.5 - 5.1 meq/L [facility] Chloride 104 98 - 107 meq/L [facility] CO2 24 22 - 29 meq/L [facility] BUN 20 7 - 21 mg/dL [facility] Creatinine 0.78 0.57 - 1.25 mg/dL [facility] Glucose 99 70 - 105 mg/dL [facility] Calcium 7.7 (L) 8.4 - 10.2 mg/dL [facility] EGFR 118Comment: ESTIMATED GFR IS mL/min/1.73 sq m CH I [facility] NOT ACCURATE CREATININE ME DICAL CENTER CLEARANCE IN PREDICTING GLOMERULAR FILTRATION RATE. ESTIMATED GFR IS NOT APPLICABLE FOR DIALYSIS PATIENTS. Specimen Blood Narrative Performed At [place] Alarm Inspector ID - AYAZ Horne [facility] Performing Organization Address City/State/Zipcode Phone Number [facility] [address] [place] [address] CENTER Prepare Leuko-Red RBC (01/18/2020 11:54 PM CDT) CROSSMATCH COMPATIBLE SAFETRACE TX Unit ABO B Pos SAFETRACE TX UNIT NUMBER [id number] SAFETRACE TX Status TX_TIMEINCHART SAFETRACE TX Blood Bank Product RED BLOOD CELLS SAFETRACE TX PRODUCT CODE [id number] SAFETRACE TX CROSSMATCH COMPATIBLE SAFETRACE TX Unit ABO B Pos SAFETRACE TX UNIT NUMBER [id number] SAFETRACE TX Status TX_TIMEINCHART SAFETRACE TX Blood Bank Product RED BLOOD CELLS SAFETRACE TX PRODUCT CODE [id number] SAFETRACE TX CROSSMATCH COMPATIBLE SAFETRACE TX Unit ABO B Pos SAFETRACE TX UNIT NUMBER [id number] SAFETRACE TX Status TX_TIMEINCHART SAFETRACE TX Blood Bank Product RED BLOOD CELLS SAFETRACE TX PRODUCT CODE [id number] SAFETRACE [place] Specimen Other Performing Organization Address City/[facility] Phone Number SAFETRACE [place] Venous doppler arm, right (01/18/2020 4:00 PM CDT) Ejection Fraction [facility] ECHO HEAR TLAB MKCKESSON CPA Specimen Impressions Performed At Right Impression [facility] ECHO HEARTLAB MKCKESSON CPACS 1. There is [...] Upper Extremities Veins SLE ECHO HEARTLAB MKCKESSON [facility] Demographics Patient NameHOANG CUEVASDate of Study 01/18/2020 74 Visit [id number] Male of 1945 Referring Thao M Room Number 1023 Physician Zuri Fulfillment Associate BEBA Mantilla Physician Procedure Type of Study: [...] of Study 01/18/2020 Age 74 Visit Number [id number] Gen varsha Male Accession Number [id number] Geoffrey e of 1945 Referring Thaoebony Monge m Number 1023 Physician Zuri Fulfillment Associate Wyatt Gonzalez Int erpretin Meenakshi Hill, RVS Adam avalos MD Procedure Type of Study: [...] are measured in cm Performing Organization Address City/State/[facility] Phone Number SLEH ECHO HEARTLAB MKCKESSON [facility] REPORT OF PROCEDURE - ENDOSCOPY URL (01/17/2020 5:18 PM CDT) Narrative Performed At This result has an attachment that is no t available. Tissue Exam (01/17/2020 5:03 PM CDT) Case Report Surgical Pathology Report Case: [id number] [facility] Authorizing Provider:David Ozuna, Collected: 01/17/2020 05:03 PM [facility] Ordering Location: [address] Received:01/18/2020 09:09 AM Service Pathologist: Wayne Mcadams MD Specimen:Biopsy, Gas tric, Random gastric bx ADDENDUM Immunostain for helicobacter [facility] performed on block A1 is [facility] POSITIVE. 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 [facility] NEGATIVE FOR INTESTINAL METAPLASIA, DYSPLASIA, O R INVASIVE CARCINOMA. WARTHIN STARRY STAIN FOR HELICOBACTER IS NEGATIV E. IMMUNOSTAIN FOR HELICOBACTER IS PENDING, ADDENDU M REPORT TO FOLLOW. Signing Pathologist Direct Phone Line: [phone] CPT Code(s) 84141, 10447, 38386 [facility] CLINICAL HISTORY GI BLEED [facility] ISMAEL H [facility] SPECIMEN SOURCE Gastric biopsy [facility] HE [facility] GROSS DESCRIPTION Received in formalin labeled with the patient's name, accession number and "gastric biopsy" are 3 fam-pink tissue fragments measuring up to 0.3 cm in greatest dimension which are filtered and submitted in toto in A1. [facility] Augustin (ASCP)cm MICROSCOPIC DESCRIPTION PERFORMED. [facility] SPECIAL STUDIES The interpretation of this c ase included the use of immunohistochemistry or special stains. [facility] BLOCK A1- GRISEL PEREA HELICOBACTER IMMUNOSTA IN. [facility] Control Slides Examined: In -house known positive controls were evaluated along with the test tissue. These control slides run alongside of the patients sample show appropriate staining. Internal posit vivien and negative controls when available are [facility] Immunohistochemistry technic al testing was performed at [facility], Pathology Laboratory where it was developed and its performance characteristics were determined. It has not be en cleared or approved by [facility] U.S. Food and Drug Administration. The FDA has determined that such clearance or approval is not necessary. The test is used for clinical purposes. It should not be regarde d as investigational or for research. This laboratory is certified under the Clinical Laboratory Improvement Amendments of 1988 (CLIA-88) as qualified to perform high complexity clinical laboratory testing. Gross assessment was [facility] performed at [place], Department of [facility] Pathology, [address] [place] [address], Technical component was [facility] performed at [place], Department of [facility] Pathology, [address] [place] [address], Professional component [facility] was performed at [place], Department of [facility] Pathology, [address] [place] [address], Specimen Tissue Performing Organization Address [facility] Phone Number [address] [address] CENTER Transfuse Leuko-Red RBC (01/17/2020 8:35 AM CDT)Only the most recent of4 resultswithin the time period is included.Hemoglobin and hematocrit (01/17/2020 5:38 AM CDT)Only the most recent of2 resultswithin the time period is included. Hemoglobin 6.2 (L) 13.7 - 17.5 GM/DL [facility] Hematocrit 19.3 (L) 40.1 - 51.0 % [facility] Specimen Blood Narrative Performed At [place] Alarm Inspector ID - [id number] [facility] Performing Organization Address [facility] Hospital[facility] Phone Number [address] [address] CENTER ABORH, manual (01/17/2020 1:27 AM CDT) ABO Grouping B [facility] Rh Factor POS [facility] Specimen Blood Performing Organization Address City/[facility]/Zipcode Phone Number [address] [address] Vitamin B12 and Folate (01/17/2020 1:26 AM CDT) Vitamin B12 >2000 (H) 213 - 816 pg/mL [facility] Folate 14.20 >=7.00 ng/mL [facility] Specimen Blood Narrative Performed At [place] Alarm Inspector ID - PIAYA L [facility] Performing Organization Address City/[facility]/Zipcode Phone Number [address] [address] HYDES Iron, TIBC, % sat. (without ferritin) (01/17/2020 1:26 AM CDT) Iron 38.0 (L) 40.0 - 160.0 ug/dL [facility] TIBC 151 (L) 250 - 450 ug/dL [facility] Iron % Saturation 25 20 - 55 % [facility] Specimen Blood Narrative Performed At [place] Alarm Inspector ID - MARVA Lanza [facility] Performing Organization Address City/[facility] Phone Number [address] [address] CENTER Haptoglobin (01/17/2020 1:26 AM CDT) Haptoglobin 277 (H) 14 - 258 mg/dL [facility] Specimen Blood Narrative Performed At [place] Alarm Inspector ID - MARVA Lanza [facility] Performing Organization Address [facility] Phone Number [address] [address] CENTER Ferritin (01/17/2020 1:26 AM CDT) Ferritin 947.60 (H) 5.00 - 275.00 ng/mL [facility] Specimen Blood Narrative Performed At [place] Alarm Inspector ID - MARVA Lanza [facility] Performing Organization Address [facility] Phone Number [address] [address] CENTER Type and screen, automated (01/17/2020 12:57 AM CDT) ABO/RH AUTOMATED (BEJOHN) B POSITIVE [facility] Ab Scrn NEGATIVE [facility] Specimen Blood Performing Organization Address City/[facility] Phone Number [address] [address] PT/aPTT (01/17/2020 12:57 AM CDT) Protime 16.5 (H) 11.9 - 14.2 seconds [facility] INR 1.4 <=5.9 [facility] PTT 31.0 22.5 - 36.0 seconds [facility] Specimen Blood Narrative Performed At Effective 12/31/2018: PT Reference Range [facility] Change New: 11.9-14.2Previous: 11.7-14.7 RECOMMENDED COUMADIN/WARFARIN INR THERAPY RANGES STANDARD DOSE: 2.0-3.0Includes: PROPHYLAXIS for venous thrombosis, systemic embolization; TREATMENT for venous thrombosis and/or pulmonary embolus. HIGH RISK: Target INR is 2.5-3.5 for patients wiht mechanical heart valves. Performing Organization Address City/[facility] Phone Number [address] [address] CENTER Reticulocyte count (01/17/2020 12:57 AM CDT) % Retic 4.9 (H) 0.5 - 1.8 % [facility] Specimen Blood Narrative Performed At [place] Alarm Inspector ID - [id number] [facility] Performing Organization Address City/[facility] Phone Number [address] [address] CENTER Lactate dehydrogenase (LDH) (01/17/2020 12:57 AM CDT) LDH 484 (H) 125 - 220 U/L [facility] Specimen Blood Narrative Performed At [place] Alarm Inspector ID - PIAYA L [facility] Performing Organization Address City/[facility]/Zipcode Phone Number [address] [address] CENTER Hepatic function panel (01/17/2020 12:57 AM CDT) Protein, Total 5.8 (L) 6.0 - 8.3 gm/dL [facility] Albumin 2.7 (L) 3.5 - 5.0 g/dL [facility] Total Bilirubin 0.6 0.2 - 1.2 mg/dL [facility] Bilirubin, Direct 0.4 0.1 - 0.5 mg/dL [facility] Alkaline Phosphatase 71 40 - 150 U/L [facility] AST 40 (H) 5 - 34 U/L [facility] ALT 26 6 - 55 U/L [facility] Specimen Blood Narrative Performed At [place] Alarm Inspector ID - PIAYA L [facility] Performing Organization Address City/State/Zipcode Phone Number [facility] [address] [place] [address] CENTER ECG 12 lead (01/17/2020 12:08 AM CDT) Specimen Narrative Performed At Ventricular Rate 84 BPM GE MUSE Atrial Rate 84 BPM P-R Interval 228 ms QRS Duration 86 ms Q-T Interval 414 ms QTC Calculation(Bazett) 489 ms P [place] 89 degrees R [place] 40 degrees T [place] 35 degrees Sinus rhythm with 1st degree [...] 414 ms QTC Calculation(Bazett) 489 ms P [place] 89 degrees R [place] 40 degrees T [place] 35 degrees Sinus rhythm with 1st degree A-V block Nonspecific ST abnormality Prolonged QT Abnormal ECG No previous ECGs available Confirmed by MD LORENZANA YOCHAI ([id number]) on 01/18/2020 10:52:55 AM Performing Organization Address City/State/Zipcode Phone Number [employer] MUSE after 05/13/2019 Insurance Payer Benefit Plan / Group Subscriber ID Type Phone A ddress [facility] HMO xxxxxxxxx MEDICARE MGD CARE CDC REVIEW CDC REVIEW xxxxxxxx [address] [place] [place] [address] Advance Directives For more information, please contact:[place] [address] [address] [place], [place] [phone] Code Status Date Activated Date Inactivated Comments Full Code 01/16/2020 11:57 PM 01/19/2020 11:53 AM This code status was determined by: Patient
--- OUTSIDE RECORDS SUMMARY | 2020-05-13 10:14 | XMS REPORT | Continuity of Care Document ---
:1945 Author Organization [facility] Care Team Providers Name Role Phone [facility] Unavailable Un available Problems Problem Status Onset [...] Q12H, # 180 tab, 3 Refill(s), Pharmacy: [facility] amLODIPine 5 5 mg = 1 Active 03/05/20 Medica l mg oral tab, PO, 19 Group tablet BID, # 60 tab, 11 Refill(s), Pharmacy: [facility] amLODIPine 5 5 mg = 1 No Longer 08/25/19 Medi crow mg oral tab, PO, Active 19 Group tablet BID, # 60 tab, 11 Refill(s), Pharmacy: [facility] flecainide 100 mg = 1 Active 06/05/20 Medica l 100 mg oral tab, PO, 18 Group tablet Q12H, # 180 tab, 3 Refill(s), Pharmacy: [facility]08 amLODIPine 5 5 mg = 1 Active 02/14/20 Medica l mg oral tab, PO, 18 Group tablet BID, # 30 tab, 11 Refill(s), Pharmacy: [facility]08 flecainide 50 50 mg = 1 Active 02/14/20 Medi crow mg oral tab, PO, 18 Group tablet Q12H, # 60 tab, 5 Refill(s), Pharmacy: [facility] Allergies, Adverse Reactions, [...] Number For Provider Date Date Visit Outpatient [id number] RANDEE 04/19 [facility] Santino Outpatient [id number] ECHO VISIT 05/09 Act [facility] Santino Outpatient [id number] [facility] [id number] [facility] [id number] [facility] [id number] [facility]E 07[facility]03 [facility] [id number] OTHER 07/03 Active [facility] VISIT Santino [facility] Outpatient [id number] Wesley 07/03 07/04 Cardiology [place] /2016 [facility] Outpatient [id number] Wesley 07/03 07/04 [facility] [id number] 08/16 08/18 Cardiology Medical /2017 [facility] Outpatient [id number] RANDEE 12/25 [facility] Howard [facility] Outpatient [id number] Randee 12/25 12/26 Cardiology [place] /2017 [facility] Outpatient [id number] ECHO VISIT 02/13 [facility] [id number] [facility]ANDEE 02/13 [facility] Outpatient [id number] Wesley 02/13 02/14 [facility] [place] [facility] [id number] Wesley 02/13 02/14 Cardiology [place] /2017 [facility] Outpatient [id number] RANDEE 06/05 Active [facility] /2018 [facility]patient [id number] Randee 06/05 06/06 Cardiology [place] /2017 [facility] Outpatient [id number] ECHO VISIT 09/05 Act vivien [facility] Outpatient [id number] RANDEE 09/05 Active [facility]2019 [facility] Outpatient [id number] Wesley 09/05 09/06 MH Cardiology [place] /2018 [facility] Outpatient [id number] Randee 09/05 09/06 [facility] Cardiology [place] /2018 [facility] Outpatient [id number] Randee 03/05 Active [facility] /2019 [facility] Outpatient [id number] Randee 03/05 03/06 Cardiology [place] /2018 [facility] Outpatient [id number] Randee 09/03 Active [facility] /2020 [facility] Outpatient [id number] Randee 09/03 09/04 Cardiology [place] /2019 /2019 [facility] Outpatient [id number] Randee 03/03 Active [facility] /2020 [facility] Procedures No Data Provided for This Section [...]
--- OUTSIDE RECORDS SUMMARY | 2020-05-13 10:15 | XMS REPORT | Continuity of Care Document ---
:1945 Author Organization [facility] t Address [address] [place] [address] Care Team Providers Name Role Phone JACQUIE Attending Clinician Unavailable Jacquie GAMBLE Attending Clinician Enrique Avila MD Attending Clinician Zuri GAMBLE, Wong Attending Clinician [phone] Chana GAMBLE, Vivian Attending Clinician Tima GAMBLE, Raymond Attending Clinician Bib Mi Attending Clinician VISIT, AVIATION ELECTRICIAN ECHO Attending Clinician Unavailable JACQUIE Admitting Clinician Unavailable Payers Payer Name Policy Type Policy Number Effective Date Expiration Source Date [facility] - xxxxxxxxx [facility] - CAREUNITED MEDICARE Medic al HMOxxxxxxxxx Prue CDC REVIEWCDC xxxxxxxx [facility] REVIEW[facility]PO [place] Medical [id number] Center Problems Condition Condition Condition Status Onset [...] kes - on on 00:00: Medical 00 Prue 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 M emoria a 00:26:45 l (disorder) Shaun n Bradycardi a (disorder) Active Problem 09/06/2019 Medical Group Hypertensi Problem Active 2019-09-06 M emoria ve 00:26:45 l disorder, [place] systemic Hypertensi arterial ve (disorder) disorder, systemic arterial (disorder) Active Problem 09/06/2019 Medical Group Obesity Problem Active 2019-09-06 León tj (disorder) 00:26:45 l Obesity Santino (disorder) Active Problem 09/06/2019 Medical Group 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 Social History Social Habit Start Date Stop Date Quantity Comments Source History [facility] Alcohol [facility] Std Drinks [facility] History [facility] Alcohol [facility] Binge [facility] Sex Assigned At [facility] History [facility] Alcohol 2020-01-17 2020-01-17 1 [facility] - Frequency 00:00:00 00:00:00 [facility] Smoking Status Start Date Stop Date Source Never smoker [facility] edical Prue Medications Ordered Filled Start Stop Current Ordering Indication Dosage Frequency Signature Comments Components Source Medication Medication Date Date Medication? Clinician (SIG) Name Name pantoprazol 2019- No 40mg Q.5D Take 1 [...] Santino 09 180 tab, 3 Refill(s), Pharmacy: [facility] amLODIPine 2018-0 Yes 5 mg = 1 Mem oria 5 mg oral 8-01 tab, PO, l tablet 15:37: BID, # 60 Shaun n 07 tab, 11 Refill(s), Pharmacy: [facility] amLODIPine 2018-0 No 5 mg = 1 Mem oria 5 mg oral 1-21 tab, PO, l tablet 22:16: BID, # 60 Shaun n 21 tab, 11 Refill(s), Pharmacy: [facility] flecainide 2017-08 Yes 100 mg = 1 M emoria 100 mg oral 1-01 tab, PO, l tablet 16:47: Q12H, # Santino 00 180 tab, 3 Refill(s), Pharmacy: [facility] amLODIPine 2017-0 Yes 5 mg = 1 Mem oria 5 mg oral 7-12 tab, PO, l tablet 15:46: BID, # 30 Shaun n 41 tab, 11 Refill(s), Pharmacy: [facility] flecainide 2017-0 Yes 50 mg = 1 Me moria 50 mg oral 7-12 tab, PO, l tablet 15:46: Q12H, # 60 Celina nn 00 tab, 5 Refill(s), Pharmacy: [facility] Vital Signs Vital Name Observation Time Observation Value Comments Source Systolic blood 2020-01-19 07:00:00 122 mm[Hg] [facility] Diastolic blood 2020-01-19 07:00:00 64 mm[Hg] [facility] Heart rate 2020-01-19 07:00:00 74 /min [facility] Body temperature 2020-01-19 07:00:00 36.28 [facility] Respiratory rate 2020-01-19 07:00:00 18 /min [facility] Body weight Measured 2020-01-19 07:00:00 95.7 kg [facility] BMI 2020-01-19 07:00:00 28.61 kg/m2 [facility] Oxygen saturation in 2020-01-19 07:00:00 99 /min [facility] Arterial blood by Medical Ce nter Pulse oximetry Body height 2020-01-17 00:00:00 182.9 cm [facility] Systolic (mm Hg) 2019-09-03 16:13:00 León rial [place] Diastolic (mm Hg) 2019-09-03 16:13:00 Mem orial [place] Heart Rate 2019-09-03 16:13:00 [facility] [place] Height 2019-09-03 16:13:00 187.96 cm [facility] [place] Weight 2019-09-03 16:13:00 [facility] [place] BMI Calculated 2019-09-03 16:13:00 Memori al [place] Weight 2019-03-05 14:43:00 [facility] [place] Height 2019-03-05 14:43:00 187.96 cm [facility] [place] BMI Calculated 2019-03-05 14:43:00 Memori al [place] Heart Rate 2019-03-05 14:43:00 [facility] [place] Systolic (mm Hg) 2019-03-05 14:43:00 León rial [place] Diastolic (mm Hg) 2019-03-05 14:43:00 Mem orial [place] Systolic (mm Hg) 2018-09-05 17:41:00 León rial [place] Diastolic (mm Hg) 2018-09-05 17:41:00 Mem orial [place] Heart Rate 2018-09-05 17:41:00 [facility] [place] Height 2018-09-05 17:41:00 187.96 cm [facility] [place] Weight 2018-09-05 17:41:00 [facility] [place] BMI Calculated 2018-09-05 17:41:00 Memori al [place] BMI Calculated 2018-06-05 16:04:00 Memori al [place] Height 2018-06-05 16:04:00 185.42 cm [facility] [place] Weight 2018-06-05 16:04:00 [facility] [place] Systolic (mm Hg) 2018-06-05 16:04:00 León rial [place] Diastolic (mm Hg) 2018-06-05 16:04:00 Mem orial [place] Heart Rate 2018-06-05 16:04:00 [facility] [place] BMI Calculated 2018-02-13 15:20:00 Memori al [place] Weight 2018-02-13 15:20:00 [facility] [place] Systolic (mm Hg) 2018-02-13 15:20:00 León rial [place] Diastolic (mm Hg) 2018-02-13 15:20:00 Mem orial [place] Heart Rate 2018-02-13 15:20:00 [facility] [place] Height 2018-02-13 15:20:00 185.42 cm [facility] [place] Height 2017-12-25 15:51:00 185.42 cm [facility] [place] BMI Calculated 2017-12-25 15:51:00 Memori al [place] Weight 2017-12-25 15:51:00 [facility] [place] Systolic (mm Hg) 2017-12-25 15:51:00 León rial [place] Diastolic (mm Hg) 2017-12-25 15:51:00 Mem orial [place] Heart Rate 2017-12-25 15:51:00 [facility] [place] Height 2017-07-03 17:24:00 185.42 cm [facility] [place] Weight 2017-07-03 17:24:00 [facility] [place] Systolic (mm Hg) 2017-07-03 17:24:00 León rial [place] Diastolic (mm Hg) 2017-07-03 17:24:00 Mem orial [place] BMI Calculated 2017-07-03 17:24:00 Memori al [place] Heart Rate 2017-07-03 17:24:00 [facility] [place] Procedures Procedure Date / Time Performed Performing Clinician Sour e SARS-COV2/RT-PCR ([facility] & 2020-02-12 11:50:00 [facility] REF LABS) [facility] Center REPORT OF PROCEDURE - 2020-01-20 13:53:10 Provider, Default [facility] - ENDOSCOPY SCAN [facility] RHYTHM STRIP - SCAN 2020-01-20 13:53:05 Provider, Default [facility] TRANSFUSION SERVICE 2020-01-19 18:10:35 Provider, Default [facility] REPORT - SCAN [facility] BASIC METABOLIC PANEL (7) 2020-01-19 03:55:00 MELISSA Dhillon I [facility] MAGNESIUM 2020-01-19 03:55:00 [facility]/INR 2020-01-19 03:[facility] W/PLT COUNT & AUTO 2020-01-19 03:55:00 Jacquie [facility] DIFFERENTIAL [facility] PREPARE LEUKO-REDUCED RBC 2020-01-18 23:54:00 MartMELISSA Saxena I [facility] TRANSFUSION SERVICE 2020-01-18 18:00:14 Provider, Default [facility] VENOUS DOPPLER ARM, RIGHT 2020-01-18 16:00:00 Thao Keating [facility] BASIC METABOLIC PANEL (7) 2020-01-18 04:48:00 MELISSA Dhillon I [facility] MAGNESIUM 2020-01-18 04:48:00 [facility] PROTHROMBIN TIME/INR 2020-01-18 04:48:00 [facility] CBC W/PLT COUNT & AUTO 2020-01-18 04:48:00 [facility] DIFFERENTIAL [facility] REPORT OF PROCEDURE - 2020-01-17 17:18:56 David Alfred [facility] ENDOSCOPY [facility] TISSUE EXAM 2020-01-17 17:03:[address] [facility] UPPER 2020-01-17 13:03:00 David Alfred [facility] ENDOSCOPY,SCLEROTHERAPY [facility] UPPER ENDOSCOPY,BIOPSY 2020-01-17 13:03:00 David Alfred [facility] CBC W/PLT COUNT & AUTO 2020-01-17 12:11:00 Van Cope [facility] TRANSFUSE LEUKO-REDUCED 2020-01-17 08:35:27 [facility]LOOD CELLS [facility] TRANSFUSE LEUKO-REDUCED 2020-01-17 06:06:38 [facility] RED BLOOD CELLS [facility] HEMOGLOBIN AND HEMATOCRIT 2020-01-17 05:38:00 Jacquie [facility] PROTHROMBIN TIME/INR 2020-01-17 03:16:00 [facility] HEMOGLOBIN AND HEMATOCRIT 2020-01-17 03:16:00 Jacquie [facility] TRANSFUSE LEUKO-REDUCED 2020-01-17 02:57:49 [facility]LOOD CELL[facility] ABORH, MANUAL 2020-01-17 01:27:00 Marla Berger [facility] VITAMIN B12 AND FOLATE 2020-01-17 01:26:00 [facility] IRON, TIBC, % SAT. 2020-01-17 01:26:[facility] 2020-01-17 01:26:00 [facility] HAPTOGLOBIN 2020-01-17 01:26:00 [facility] BASIC METABOLIC PANEL (7) 2020-01-17 00:57:00 Jacquie I [facility] MAGNESIUM 2020-01-17 00:57:00 [facility]EL 2020-01-17 00:57:00 [facility] t [facility] PT/APTT 2020-01-17 00:57:00 [facility] RETICULOCYTE COUNT 2020-01-17 00:57:00 [facility] Emmie s [facility] LACTATE DEHYDROGENASE 2020-01-17 00:57:00 [facility] - (LDH) [facility] TYPE AND SCREEN, 2020-01-17 00:57:00 [facility] s - AUTOMATED [facility] CBC W/PLT COUNT & AUTO 2020-01-17 00:57:00 [facility] t [facility] DIFFERENTIAL [facility] SARS-COV2/RT-PCR (HS & 2020-01-17 00:37:00 [facility] - REF LABS) [facility] ECG 12-LEAD 2020-01-17 00:08:25 [facility] Plan of Care Planned Activity Planned Date Details Comments Source Future Scheduled 2020-04-05 INFLUENZA VACCINE (#1) [facility] Test 00:00:00 [code = INFLUENZA Medical Ce nter VACCINE (#1)] Future Scheduled 2019-08-05 Medicare IPPE (WELCOME [facility] - Test 00:00:00 TO MEDICARE) [code = Medical Center Medicare IPPE (WELCOME TO MEDICARE)] Future Scheduled 2009 P[address]UMOCOCCAL [address] - Test 00:00:00 LOW/MEDIUM RISK ([facility] 2 - PCV13) [code = PNEUMOCOCCAL 65+ LOW/MEDIUM RISK (1 of 2 - PCV13)] Future Scheduled [address] [facility] - Test 00:00:00 malignant neoplasm of [facility] colon (procedure) [code = 377815784] Encounters Start End Encounter Admission Attending Care Care Encounter Source Date/Time Date/Time Type Type Clinicians Facility Department ID 2019-09-03 2019-09-03 Outpatient NEO Mi [facility] [id number] 10:00:00 23:59:59 Abraham Mccartney 16 2019-03-05 2019-03-05 Outpatient Hiwot, [facility] [id number] 10:00:00 23:59:59 Abraham Bib 15 2018-09-05 2018-09-05 Outpatient Hiwot, [facility] [id number] 11:15:00 23:59:59 Abraham Bib 14 2018-09-05 2018-09-05 Outpatient Hiwot, [facility] [id number] 11:15:00 23:59:59 Abraham Bib 14 2018-09-05 2018-09-05 Outpatient VISIT, [facility] [id number] 10:45:00 23:59:59 NURSE AVIATION ELECTRICIAN 13 ECHO 2018-09-05 2018-09-05 Outpatient VISIT, [facility] [id number] 10:45:00 23:59:59 NURSE AVIATION ELECTRICIAN 13 ECHO 2018-06-05 2018-06-05 Outpatient Hiwot, [facility] [id number] 11:00:00 23:59:59 Abraham Rogerst 12 2018-02-13 2018-02-13 Outpatient Hiwot, [facility] [id number] 10:45:00 23:59:59 Abraham Bib 11 2018-02-13 2018-02-13 Outpatient VISIT, [facility]MG [facility] [id number] 10:00:00 23:59:59 NURSE AVIATION ELECTRICIAN 10 ECHO 2017-12-25 2017-12-25 Outpatient Hiwot, [facility] [id number] 11:00:00 23:59:59 Abraham Mccartney 09 2017-08-16 2017-08-17 Outpatient [facility] [id number] 15:30:00 23:59:59 2017-08-16 2017-08-17 Outpatient [facility] [id number] 15:30:00 23:59:59 2017-07-03 2017-07-03 Outpatient Hiwot, [facility] [id number] 12:00:00 23:59:59 Abraham Rogerst 08 2017-07-03 2017-07-03 Outpatient Hiwot, [facility] [id number] 11:30:00 23:59:59 Abrahammadan Mccartney 07 Results Test Description Test Time Test Comments Results Result Comments Source SARS-CoV2/RT-PCR ([facility] & Ref Labs) 2020-02-13 11:36:00 Test Item Value Reference Range Interpretation Comme nts SARS-COV2/RT-PCR (test code = Not Detected Not Detected, Negative 45654-9) SARS-COV-[address] [facility] (test code = 85648-7) BEAR (test code = BEAR) Negative results [...] of the Act. Fact Sheet for Healthcare Providers:https://www.United Mobile/Documents/Xpert%20Xpress %20SARS%20CoV-2/Fact%20Sheets /3023802%05FVOC-MVK-2%20HEAL THCARE%20PROVIDERS%20FACT%20S HEET.pdf Fact Sheet for Healthcare Patients:https://www.KnowledgeVision/Documents/Xpert%20Xpress% 20SARS%20CoV-2/Fact%20Sheets/ 3023801%41MREX-YFL-8%20PATIE NT%20FACT%20SHEET.pdf Performing Laboratory:[facility] [place] [address] [facility] MedicineARS-COV2/RT-PCR ([facility] & REF LABS)2020-02-13 11:36:00 Test Item Value Reference Range Interpretation Comments SARS-COV2/RT-PCR (test Not Detected Not Detected, Negative code = 1210551) SARS-COV-2 PERFORMING LAB [facility] (test code = 7000179) Negative results do not preclude SARS-CoV-2 infection [...] of the Act.Fact Sheet for Healthcare Pro viders:https://www.ATG Access.Contents First/Documents/Xpert%20Xpress%20SARS%20CoV-2/Fact%20Sh eets/302-3802%61QGES-EYW-5%20HEALTHCARE%20PROVIDERS%20FACT%20SHEET.pdfFact Sheet for Healthcare Patients:https://www.Futurefleet/Documents/Xpert%20Xpress%20SARS%20CoV-2/Fact%20Sheets/302-3801%20SARS-COV -2%20PATIENT%20FACT%20SHEET.pdfPerforming Laboratory:[facility], [place] [address]Fjqqde [id number] 10:48:00 Test Item Value Reference Range Interpretation Comments Case Report (test code Surgical Pathology = 104) Report Case: [id number] Authorizing Provider: David Alfred, Collected: 01/17/2020 05:03 PM Ordering Location: [address] Received: 01/18/2020 09:09 AM Service Pathologist: Wayne Mcadams MD Specimen: Biopsy, Gastric, Random gastric bx ADDENDUM (test code = [id number] 3381) EbBSFro7epUSOmmVTbErJl MzNcZnRuYmpcdWMxXGRlZm Nby5bbp786nSSyl8wlBYVj DwU6eZSsFIJqtTYpO439c5 ytn3acqxOdsXF6IMKdDZD4 WCulmcDnxgW8EUdpdXIdSz S7EAyldnTlGHdrlrAvcbWq Imu2KOBzE542GCE8ePcwa3 wcBLQ9QHDlKSXfJmOnJz3d hWImZ415APKkHUYJLWKamL y0XBJijnIczvRptNNFx567 K497r7ihNXGlvqYjuXuDjg ssb7ewC037TKVjiPJlioHl JaNkQQCldCXinYQ0OCLfKJ 0ncqfbDCjhUPqbVSQiarI0 XLNneQYfC2GsDRFlLE6eka vgGZQ6FYbvAMEoNXQ3JuJs ZJLdt0Wtguk9WjByld7shq 42LLB3v4FwuNmzTHS6CVP4 TjXlDc7ivBSpEDYnRI9gAw YhnEPaEDCoxk77lIelCKyg rpNvpT1lBoQaOKXlvJAeLM FbBD9ctUMmICMzgU3xtkqd XHBnYnJkcmhlYWRccGdicm RiAa6opQlmEZA5RLhtS8of sZ9mXgX8TCgoK5emzQ8qAN n1PZksaVK1UKNqeS2jBI1u fignv5geBEexUVtbYTErfl S6ajJ9LHNdtKByH3KylQ9p NIBaQS4mfgxhd8wxFHH6PP riCVAqOUF2NgBhROBqe2Xy tuk7FeCpi8UcsZKmGUbuI8 8gz302TUUeguJhO7fdxKYw knvuaEXprnkmGAwprfZ4ER FsXHBsYWluXGYwXGZzMjBc bGFuZzEwMzNcaGljaFxmMF knOyTkAEPgNUjaM4chWsLf EdEiVUFWmD04hk4bdCWoqj Fbb7ZjlZXaoFTjCpCrmUEb QNUwcaYfdr9oZFTodfNxjT 8lycQMJGBujhZYJ4SINWxU NZ7xeAKkoG== DIAGNOSIS (test code = w7eafIUrKMXfv8blYDDuvV 3220) FuZzEwMzNcZnRuYmpcdWMx UNtjqoXgYVplj9BkU2JmKg AwMFxhbnNpXGRlZmxhbmcx YIDqSOZ6wjKwYODnLAtkWT BqZAbsDg8utAKgaFlsOqTe DBAuu8pynmZCrbgslWz7z9 hxHFIoEaX0lAUsYNrmW1hv qbCjqSKhKXBrPJz7lG54TZ MapO9ahBVrNUadknWmJuP4 PFyyILCbYsE4YNUxiIIlZS HdJ4hqGLLrKBhaJINyCFsv rFHcWXC7oCqff6K7lFKouE HumVchJhUtNsKmILQWe4Qo MIj6dVhiZ6IeOTRmEbS8uC QgUGFyYWdyYXBoIEZvbnQ7 rP33ZLrqujD2dUTko2Ple7 7kz076jZ6ewOBiYYC4POCb MUCaqRDzQPCyWNT6FBGuhY RdP2m8SuYiaDQhI1Y3ThLz lXGwB2C2JwMqqNBrM9X7Bx PtqYAgQVXxjVYkPt1kuNEv uJCqnl4ewd53ZNY6b2WfdC xnGDQ2NGZ7XjWwXj3lwBUa CTQeTM6tRvMkyNXyHNVysa 26vZneFHpkdhIgwL6nIyMd QYVwoKVvWGIeRL6jxYNsLR NmcB9ldrkkYHQsAzMpprxg FMLzwMlpviSvAj3bvHrqGB L5YFkmZ5hloM0jCkS9UDfk W7zztR6oLVg2IDujbZF8ER CcdS9eZM6qyorne2kmXfAm XD4shremi0knRpKeCK9rjn i7q3ayWyDlNA1edlkis0qt NzIwXGhlYWRlcnkwXGZvb3 UcqgilBLXci8WfP1ZtdEaw L05rkHyhC18yMSFauNgqtZ 2szLchuM1zDvWuGzTqXNuw bFxwbGFpblxmMVxmczIwXG bvbokqJRUrFIekM9wgHdWx TLQbpVsbMXatl7JqURKvKG ZzMjAgUEFSVCBBIFJBTkRP GWDAOWZYVcoVZRHIW6TXCA pccGFyIEFOVFJBTCBBTkQg X2zXSpJEGwUGPSTQH8WsL4 tGSCLQT8ATOhZwP3lEP83S QyBHQVNUUklUSVMuXHBhci XLBCpEAZiYRHAXT2HcHK9K DLLVXM7LYTCFATISQZqQU5 jXEYHFSPJOWNSVOMFkBI1Q IElOVkFTSVZFIENBUkNJTk 4HFD9nbZNcXBaDAiYAAD9h U2ATUvSLVCGWSSwKHPTFEz BOHTnNI80PLLWKLMChCXXh TkVHQVRJVkUuXHBhciBJTU 1OFm6CZQKDWwVYP8DaSHUK SUNPQkFDVEVSIElTIFBFTk RJTkcsIEFEREVORFVNIFJF JR5CCKDUKuAAT9uHG6gnMW Fzwd39JMD5TqOwv9C0QRY0 EEZbHJDil5zkSFBuoZFcLf EwMzNcZnRuYmpcdWMxXGRl MfFxg2fin414zQDgy7mlYR WkCxI1tFCbHGKsxPZtG723 DXGtPFuar6mso7ThDWKvdC Dlw0A0JLCLanfclEu5iYzr E32bv4P1XirbH9zvOBMoSO LyP8WrUY2eZPJbKpi6OOQ3 AIQ5LRIhCPEiC4ZrUP0sRI NpwPXnTVg8c3rpaLfvTHQj QEW1g8beZOpxduBcOO2duk 6bcRi4i0wuoeYfZKWqFJDo dWMDJRWlL0WsqHtrPl5whB j8aUskCilcVTO0Biw5CE3p tj96mkl7rXdrEITqjrkhSb Z0SWvxFHHxoewiQRj5AOcd JSRvuFK6FSKnzMXwV0MkBP BvZR7jexc2HLS5DVgzDUAk UaL2PZXkbHEiQLPcyTvrHJ uqg714WND9ZeVzDA6vE8Wr m5X2fC8etIGcEDGbgNThBg KoGZHjlu7xxFHiETese5Ef VQT5qyC3jHHixNUhRTFnVx D1IQwrIX8udf53IVJcMSG5 td5wgNMzwIngyyXxaUCuCR htH5EtZDErq932ZLHjY8In EVRrk2O8jmHpZwIeEJOylK I3smZ5ROEdSF7pstkkc7yw XXchDNmeKLCrrjR9vmM7QT LnxZRcO5HwvI8rKQNkQN4y hxsvg9yfRYA8CNopQDEuXP T4ZaEkSPZtr8Qcysu2AbEg a7XdmLMdZNvgD24go809NS OezrTtH8hviTVsyuivsKIe djnaBMlcjyG9KTClNYirtz bdRGDsCNpaT5rrSpQgMQRx nSbsKTpgc4LqHXKgKZRsUz RbpMCeMMAeZne2YFRiaETa UPBfTsGiY6tahqeyTgVMWE Gli2fdX3mjvNZIsGUqF1Or UGhvbmUgTGluZTogODMyLT H7VP70DHegUOQhqp12 CPT Code(s) (test code o6gywNDmMUIrbYNdSiSjBT = 7744) BvHKZny5kmEHOyjDEbXqGg MzNcZnRuYmpcdWMxXGRlZm Smf4fgh910nQRmn0osPLHo CpB7nFRkCMOjgCVkJ530f6 kpd9dajwXtxTM6KIBbPTL4 RUwcduXhrcM8EBqcfOHqYv K9WLugmvWrTFzrwfVdjbHt Jsa9UBRzC218AZK6fXbke2 sbEPZ4MTSeHUUkEfEwYm9p xBBkO785AIFeCLFKJFFgoD r5JRFsbqCqulMwkFVCp082 H824r5rvZCIwrbEbcSeLzz fgl5xmW253KRTovEKzubOx ViPhAZFotQTvdOR8TUUfVF 3wemgnLcGpJJ3spcgnEuJu PH9rkvj3ZhSgCO1xzwvcWe LiFDkuSUGkjdkkFZRnp9Qk zymgUM7vC0Exw6J1hD5jpJ SlEXQbaDDqWpXmUTLvfe3x jWIqOJtbl4SkXIJ2csH4mM ChpXVoCJLnMJ01Hggkt1Kw NpnxXVN3ZSHrjgOar1Jxb4 tbYwDhusQuX7arY2QbEPLg WGMzPBAbBnSvnnFqg3Pal9 LgbYXnxPv1x6htCOQkWCTh cXmjz5bkXAG3VYTeI2J6aM Sij4sgEPqbBGVrzSU8cvit MXivJBFmvlO0aciqQQusSD HnoGU9mgdvTVhdQSZpAaB9 xvkkXUnkSXSsAGJ7ZTyen8 75WZY1VCqqXaguIHvpIBUh bmNvbnRccGduZGVjXHBsYW luXHBsYWluXGYwXGZzMjRc gBajlRmnnO9vWjDoGoBpIA gbPI3kMGOpH6eueXCjNKPo QDJaL2lgHgPorL0gsWmyON fyfpJqHEf4ZzF6MYH8AGPw MiwgODgzNDJccGFyfQ== CLINICAL HISTORY (test h3usvXQwNZDllUSsXlGmSZ code = 6189) TyAFLai4liEMDhrARmVfBs MzNcZnRuYmpcdWMxXGRlZm Vka6uvg266qIJhf6rqELMc ExL2uUTmJVXyqXXyO495CS JlJIqza0gyb3DhBJGupXNd p6Q8MSQAotwrwMr5kYctT7 6yn3R0IbbvQ8hlFPVjEICc W3DlLD2sXCOtZby4LUB1VD T2YBHqBHPgU4MlDK9fTIDh rVQlUKr6p9tvmOidGHZlWJ A1h9faOEirvdXjWJ5cgc8i zPn6o7mcspKzOMKtIVRsbI MWCLKpX0XivJotIk2hpBn2 dCueLnwdAUK5Avm8YX1iyk 01hhu7uLqgKHCtktazXcB7 TLehGVBearmoBDf5WJsnVO JnbDcyMFxtYXJncjcyMFxt YXJndDcyMFxtYXJnYjcyMF npTGLlRZQ8XYddv226PNM3 YNbho8eci4tzwIZiEzg1JR UoMxVyZigtCZoks4Tcq7ej HRNndk6uHLZ6lNYpqYwcl5 I2yLNwSFRshXCoqpNxUOZj ItF5BTdeOM0btn18NDXpTI X2rj1ufYSzoZzeoxJqtBMa TWtiC4ThKZPix121PSOyS8 WwTDGck1X5osRfXtLzGCPg lCX8ccY8YJSoURe7oGHbun L4ngCfqYRbN8nugE52MdEk iKJkP8MmtF31PrJrgFYzW0 ZsxR58CfYmeAQgM1HnrP20 PhFwtDIdJFXvpSXeDz5brY TogXCxb6TolHFtBJpvF71c m442MYYcskEhE6wagWYoua zsuULjhggfVExgqsM5CNa0 cnBhclxxbFxwbGFpblxmMV xmczIwXGxhbmcxMDMzXGhp Q3qxOaWdCSAquOxlLEgwc0 QfSNIpIYRmYzPmU7rmPmbA RURccGFyfQ== SPECIMEN SOURCE (test y9kiqPDrNUFsxZPzRdAyBU code = 3377) RoXRBtd3sdPERwiAGlTbXw MzNcZnRuYmpcdWMxXGRlZm Zxq0kls386mKSgm2kkYFHq SeW6dULcIZDuqVQfR907a3 rif1rcdmFnmVC8FGHfZBY1 RXbydsHhplW9EFnsuFWnBu T6TBcpfnPfYYgnclWzakYi Hna3TBAjC375ETF8jSaia3 vmBHB2BQFaNECmAfNsDc2k eTQiI760KOOgSBVMQJMteK g9YCAgazLoamSddALWe849 A608p8ypYALaskCkyFqGav vqi8oiG467PIPiuFIiwdQr OgLyFGBquLSykPF0UFQqJI 4owyblQbMoBJ6zyonjBzHe PL6wdah1RbVrXX6sqtwaJg QkWLctQESpxqzdFHIzg9Rx urhgDU7iA6Uvs9Y2tN5ddZ YsPFFacMPoSuHcLAOeoh8c eUOgTRyce3PnIEJ1ifP8rT ZzrIRcACHkBG18Lwqjz3Tz GnnlDPB9THRfigRku0Gzu7 gaVwUkaxKxN5sjP0YdZMYz QPVzXWUtKtLmgzIrp6Hfq8 TssEBciPw2n1qbDTQpMGFx aGjhh3wvBJW5XZDgD6T6tT Hfh7nlOFywWIOgaJJ4xhqi SGarMXIurpM8utnvJTjePB LegTX3kzznNEvgCZBkZmA4 ukidXYhsNDVzQNV3AHmku8 44TGP4KUwtKginRPrkONTt bmNvbnRccGduZGVjXHBsYW luXHBsYWluXGYwXGZzMjRc sPuizZeocR1qEdEeDaHqFD uxZO7aGKOjC4rbhHEhVSDw JTLfE6npYtGxiG3wyRacEG vsasQnXJlaq9HxnECuBbye yDI0SXUruw4= GROSS DESCRIPTION (test f3kupETxWCOuaWDcJpHmFW code = 3366) YnNVJlv4ahEWAlnHDcPwTc MzNcZnRuYmpcdWMxXGRlZm His3kcc805pPPem9gaWWDh HiR6bDWuYKGimKByV772v5 vtr6vumxCbyGZ0PAQvKCC9 GYuzmtLvenR5ZCvhoLTqYr P4YPbxefXzYGpdzgJjulZx Dsx5DCBcQ280GWO0lCyir5 dsFHW5ESDiJVBrAyHeJj0f oHOgQ557AELqBTAOWQAnrW j2JKAtakUobxMseQXUn967 H245v6wrQBClqlDlfOzQmm kwl1lbS306BKOkgTQyawAr JdMqNAMphMDmbAF4GRPsDF 6fwfvjImGgXV8ilzqmHmCb EH9upsh5FyYgFD1jsrpdTt ZaUBmwVHFfawedAWRgf5Mp mcmmKC8lP0Yrn5X0gQ4ccF QtWBNrbKOoNnJzHRSgaa8n oOGnQAoht7BcEJO6ydR6wI OmjAHfASXdFH86Uuwsw1Uj JkusIBB3XXEnpzAyh5Vad2 puKaJrdaHeN3tkW8NlUXMa BOQvISFxGgOkqcGet5Pxk6 AsyKOfqHy1r6ovWIUbWVCd sEnvl7oyBRR7MWVyG4E5vH Xxb6rbQHwcIFYutCL1hypc YQozEGEcfyP5ualtPDnjUW OhcXA4zkoyCCaoLIMeRgF9 adxoBCdiUUZhARM5YInmg8 65DEU3XXzzRsllRJwnYETa bmNvbnRccGduZGVjXHBsYW luXHBsYWluXGYwXGZzMjRc dGyhgFcbwB3qOqXuJoElTG ovUU2dWKImP2aiyVZnXRZp AYSfF8zwSmUceG3fvBxtII fjydHyLLPqO0RlswSiESgg ZGNtai7ksSeqNLyoUjNnJO Uoi6o4dWG5gZLlhUW7gGMb qObcAG0irJEtTJDuW5Ltj2 gbmuMugS6lIVBgKO0fRZBa GJN5lrnqFOUqg3YkaNYwPF JlIDMgdGFuLXBpbmsgdGlz d4PpTPQyHCajMB72bdFaYY DvrDCdsdvynIBkxH5yAG2r NRKoPCryJQstLQI1MRJ8OE UnkSFft2ggarO4iKxybQBy chQaCrtrmEJiQHEcHB4jLP L4Gh3wnQCkLROowvO0o9Av IGluIEExLlxwYXJccGFyIF ZtoRRcVAKzK4UpcAxxekkl VUTaMLEBR9IiY26qkDAwnF == MICROSCOPIC DESCRIPTION c5kouRXyCTNndTAwUwPbQN (test code = 3371) NcJJXkq3buLOQzqQEvCpUk MzNcZnRuYmpcdWMxXGRlZm Qgb0qev573kBIxy3feKBYa NtY2kTUqJHJzgTLdM626q1 kwj4fqsaNpbDM1ZPHpTHW1 OLdpreEqzgE3CUfumKVeWw A4HKtkxsFwAVqoftXcyxHb Cbz1KZPeM188YFI5uBzuu7 vuHHV9HAGuAASyOlNfBi2w lFLrH038DWNrJZPSGKIdgH n6AYFjciErslJmdPGUa729 H064t0yrTIEbtgHubFtSkw gha5njB958MWKgbYPllqNy LdFnCOKxhPCsjNY5TIQxZS 6bnchsPzWeSY7hqdonRyGb TS1nmdx6NyDxFS1zqjumOg SeAAnaQLQugmlkIYNsu2Vo bnwfDO5hG4Xxj0L6iZ4ouY LfYFZdfWJaTsWcDWDgwk0y pCZiJTgrr2HeDMB6ajO6uF OqnXAmKJRlCM22Lhgkv4Gm CqnuOTY8XLYlefCom4Gul6 jpZmEkwkAiX9wyN4ZaAAJo VBQwGPFcQgDzftUyr3Ghp9 BbrDKaeVu7m1ttFCPsUOQu aYado7qxCKE4PKWkR4W6jT Ioi4rvRKgzAYTzlLX2wklv WOlfKVFtweL8sxbxDUzaPR FwkBW9oxzjAWtuYQPtUmA4 ussdRHnoPESoIIS6ZWpdy9 24YKP1PHafGfyxPRzmBOAm bmNvbnRccGduZGVjXHBsYW luXHBsYWluXGYwXGZzMjRc tMzrvDeqdB9tKrWhIpKzBD vlVN3jCSFwP9fmhXCiTUHo GGAzJ3arTaGtrB3irKlhJD iwclUyLEJSUwTNEx1ERF7v cGFyfQ== SPECIAL STUDIES (test l4mwoNGfJDSuuUWfTcPqQU code = 3376) LgPAWvc1gcUIWfvSAwXeSz MzNcZnRuYmpcdWMxXGRlZm Ihc6neb378kYJfi8dtFIMy KjD6tQFkWWTajOAlU860FB NsKQxtj8yjz7YlJWWoyIBp j0W5KXUMRJppIuVgT989KH RqIOczx8aka9SiZADkpHFj e7D5EGOOviscvNz4xPxiR3 3fn5W3BswtB5bbVPGtIBMt T5OaLY1pUJQsDzc0BYN7UV N8VXHcOONmB5MkYB7iMEAc cFRjYMk4c8oonSvcRKAqOQ E2f6zhZGjihzA3CF4pzn8b zOr3m3pdfgFbUQWwGUSveA RMENCwK1YigHtxIt5otGr3 w5aaZdzmaoF7zUKrUlLoVx MyMFxsaTBccmkwIENvUGF0 bYKEZYj5Y543e9tmORGakm ZjrRvOjppaw2kzI841HCQy cGVydzEyMjQwXHBhcGVyaD F6TTDkLP8fuczuJpRkXP9w ggkaPqQpDB7wplt8UoYoTR 1hcmdiNzIwXGhlYWRlcnkw IZHdy7DmqzlmNF6eH8Kqn3 F5dH5ptALiLEVkpHZlAoGd QMYfic4zwUGoCEwkCFX6GF KyhvKux1Lkw7ulDwFalhYs J3pyB5TxWHVzVUZeGZOyTv DmpfEsi6Evt0BzuFIzaJv7 u1tgMRPaYXHowMafj4vzCK G2AQNrV8H6kIDau9taLZnm KEOurRK0hwhtHUaaZJBimp R9lrhpKPecQQMiyZE6munq TEguDWHuPdB2pjapHOtgRT ItGNO9XYorf688EZJ2BGco YmtwYWdlXHBnbmNvbnRccG duZGVjXHBsYWluXHBsYWlu XGYwXGZzMjRccWxccGxhaW 1gFlOvMwYnHnzhDK5sRBOp W7dwcSXsDWJvFVTdG3zdFi SnhH3tdKqnEAptNhDvMoNq TlVQjNDmmC02IOQjoaZ8NS Tor34ew4LmmJxhkzGuDGGd DCdeM6a9FRJvRXZdLRO8j3 Bqc6LfwT3lvZ6dzSwlwS0f fPOvyZB4dyevg4Fio2PnK6 lhbCBzdGFpbnMuXHBsYWlu XGYxXGZzMjJcbGFuZzEwMz NcaGljaFxmMVxkYmNoXGYx SKvsV5odRtGqY1TmFEWpRi HieVShP8xsbHUnWPRkUBcy XGYxXGZzMjJcbGFuZzEwMz NcaGljaFxmMVxkYmNoXGYx AUwdF5tlItDoZ7RdNMLxQo AfOyxKG4ugGVWcTIfMYmRZ BI6qJ7VMHwGLQZNHGHcQH7 3UNCSOKLFhDA8SQV6GE6ML AY5mZNRzQBojPMXsHHKaUd JcbGFuZzEwMzNcaGljaFxm GFeuDvElTNZaGJtmG1xiTr EfA1ZaQGVwOxOhcGRzE3mq cGFyXHBsYWluXGYxXGZzMj JcbGFuZzEwMzNcaGljaFxm SGhwDfTsOGXsHEomX8soKf PfF7HxZFCePfVkR95btAZh bCBTbGlkZXMgRXhhbWluZW E5HBCZgb3gn3YzOGTtlx69 ixQuy2XznOh2AACkq498vb 8rytZ0VJWmPZM0WEm1IVHt SHBlhX0lWeV9mUQxDOXhQC A0GYP2DLWbi1T3PP8fSIKw WZSgMVTfaaYhy1gxr0wlAE IhRBL7hwEbrF1kX7KbJQNi x6OtqHfxNTPdlSwxwwQqUC VxwPJeDQBjiC94GKKycCSr wQIvANJiJLN2JHfspQ4hEu XMhhMtpu5ftTBsp9SjzBq0 ZSBhbmQgbmVnYXRpdmUgY2 2wmRCslBByw7twgnRjotWw eINzeKOsYEEdXZZ7IOr5OP RlZFxwbGFpblxmMVxmczIy WUnxgkrdRSSzVQaqF9rjYm CuDDEajJdiCCoyj8NpJIOg LYDnFyqksqUsBPw6elKzTN BhclxwbGFpblxmMVxmczIy TNkyaaynILPnCMsfT8smVl EjZNLzvJbnYTizx5PmDEVf XGNmMlxmczIyICBccGxhaW 0oMqQdXvTsYlyjJP3eJVZj G6lnvJYhXQIrYNRgM4qpAd LemQ0hiCmqGUubEnDvKiHg MlxsdHJjaFxwYXJccGxhaW 9nQrYkYlNgRlkpOO0pLAMf E8fcpCVrNSPvDXMxP8giKi MmuU2coJgdWFcoVvAdEbXk ShTJeJ05io6yfHN3x0IxLH 3xb7GygRT3IIXjzrhkBVdx nIYwmUloAyO2JEOnpUBxWa 3zpSZuKBE0VWXhhFikotJS wS9dFYPyGDqytJMmmygxIS xmczIyXGxhbmcxMDMzXGhp V8odUoXaUNRhxIpxWUuxh3 NoXGYxXGNmMlxmczIyXHU4 YrK5YWjkRNHdsLcktA1nGq PlOtLiHxxvOG8fJGTeQ1ax bTKzPVOiJVAbR4kjCfSigL 9jaFxmMVxjZjJcZnMyMiBz WI6lCNmpOLagP9DmwKNkMO GQSMIfx6ekV0biCKEbw3Iz rU8ciZF5xAMtTYCgfMJ8CL DmUYP4NTmrsHQdLHOqAMMt kZPdfCFpDi0bhPJmO4QwG3 tormRrnMJomOR5xFDoFHeu rxFvPUB7UJJmlN1hVF9iLW NhdTFbWL2ryZCrXPIgBNGj ORUcPWFtu7ZkVFIzzy21KV NcEfbixUveBVVoCf9xMa4x ZEEogwVaEMS2QiRXDG9tex qahTEqzIqlfb4vRLljROMY HLSmDWUrDDF2EYOpkF1tGS W5hRX7LAA5Q5bbK7ezJMMg qrDgHK3hPKAsdQMajlMnTN akSY6xyLEtEIXiz4Jadovx CNZnMMK7DJL6ZDpmNUPeTO CsVf1aGBNxkU1aH3CwUYW3 mzHww0VsAyBCcRPmjB93qO Oshg10HJKmVOQeA2RoLZQs IGFzIGludmVzdGlnYXRpb2 0bwRPasgVnm9MpohCaEGEk P7lzKKNivRCuiFSfs3YjuL 3zwTFxulVpNZB4fSOoOVDf kN0nVEIikWpySLXsnS9lB5 DpSFhuYh7cWVKddnmrAP5j la24HL6fuvZyMR1omxXrME 15mcRbEsVfZSk1HMgQOCfK VVu9WGDfwdAzuYXluIIlPG JuwF1xpHRfXw8eeSFlkPlx HCYwtPAyQFpvpKxjD0cmgh dtNRbdoZEji9GptW3nxJR3 PTQ2dE7mVjvtnOKtbvwlUq xmczIyXGxhbmcxMDMzXGhp C2weQzVoXHUlbPywVzoew9 NoXGYyXGZzMjJccGFyXHBh yhSqfQjuaF9qLsZgIuGwRV dybTNynldeDekbrkZ8EKNi cn0= Gross assessment was [facility] performed at ([facility], = 2777) Department of Pathology, [address] [place] [address], Technical component was [facility] performed at ([facility], = 0078) Department of Pathology, [address] [place] [address], Professional component [facility]. ke's was performed at ([facility], code = 2779) Department of Pathology, [address] [place] [address], [facility] [id number] 10:48:00Surgical Pathology Report Case: [id number] Authorizing Provider: David Alfred, Collected: 01/17/2020 05:03 PM OrderingLocation: [address] Received: 01/18/2020 09:09 AM Service Pathologist: [...] REPORT TO FOLLOW.Signing Pathologist Direct Phone Line: [phone] signed by Wayne Mcadams MD on 01/18/2020 at 4:47 [id number], [id number] BLEEDGastric biopsyReceived in formalin labeled withthe patient's name, accession number and "gastric biopsy" are 3 fam-pink tissue fragments measuring up to 0.3 cm in greatest dimension which are filtered and submitted in toto in A1.MARYLIN Augustin ([facility])cmPERFORMED.The interpretation of this case included the use of immunohistochemistry or special stains.BLOCK A1- WARTHIN STARRY, HELICOBACTER IMMUNOSTAIN.Control Slides Examined: In-house known positive controls were evaluated along with the test tissue. These control slides run alongside of the patients sample show appropriate staining. Internal positive and negative controls when available are evaluated Immunohistochemistry technical testing was performed at [facility], Pathology Laboratory where it was developed [...] qualified to perform high complexity clinical laboratory testing.[facility], Department of Pathology, [address] [place] [address], [facility], [address] [place] [address], [facility], Department of [facility]ology, [address] [place] [address], Kftiyv doppler arm, right 2020-01-19 11:48:48Ejection FractionSLEH ECHO [...] Date of Study 01/18/2020 Age 74 VisitNumber [id number] Gender Male Accession Number [id number] Date of 1945 Referring Thao Room Number 1023 Physician Zuri [employer] Coordinator Wyatt Gonzalez Interpreting BEBA Portillo Physician ProcedureType [...] in cm/s ; Diameters are measured in [facility] Basic Metabolic [id number] 04:55:00 Test Item Value Reference Range Interpretation Comments Sodium (test code = 135 meq/L 136-145 L 2951-2) Potassium (test code = 3.5 meq/L 3.5-5.1 2823-3) Chloride (test code = 104 meq/L 98-107 2075-0) CO2 (test code = 24 meq/L 22-29 8-9) BUN (test code = 20 mg/dL 7-21 3094-0) Creatinine (test code 0.78 mg/dL 0.57-1.25 = 2160-0) Glucose (test code = 99 mg/dL 70-105 2345-7) Calcium (test code = 7.7 mg/dL 8.4-10.2 L 32041-5) EGFR (test code = 118 mL/min/1.73 [place] [address]-3) NOT ACCURATE CREATININE CLEARANCE IN PREDICTING GLOMERULAR FILTRATION RATE . ESTIMATED GFR I S NOT APPLICABLE FOR DIALYSIS PATIENTS. BEAR (test code = BEAR) Instructor Of Sociology ID - AYAZ W Lab Interpretation Abnormal (test code = 97336-7) [facility]00 Test Item Value Reference Range Interpretation Comments Magnesium (test code = 2.2 mg/dL 1.6-2.6 84799-1) BEAR (test code = BEAR) Instructor Of Sociology ID - AYAZ W Lab Interpretation (test Normal code = 44693-9) [facility]2020-06-16 04:55:00 Test Item Value Reference Range Interpretation Comments MAGNESIUM (BEAKER) (test code = 2.2 mg/dL 1.6-2.6 627) Instructor Of Sociology ID - AYAZ WBASIC METABOLIC [id number] 04:55:00 Test Item Value Reference Range Interpretation Comments SODIUM (BEAKER) 135 meq/L 136-145 L (test code = 381) POTASSIUM (BEAKER) 3.5 meq/L 3.5-5.1 (test code = 379) CHLORIDE (BEAKER) 104 meq/L 98-107 (test code = 382) CO2 (BEAKER) (test 24 meq/L - code = 355) BLOOD UREA NITROGEN 20 [...] S NOT APPLICABLE FOR DIALYSIS PATIEN TS. Instructor Of Sociology ID - AYAZ [facility] with platelet count + automated [id number] 04:31:00 Test Item Value Reference Range Interpretation [...] 450 K/CU MM MPV (test code = 14449-8) 11.9 fL 9.4-12.4 nRBC (test code = [...] 2801) Lab Interpretation (test code = Abnormal 44590-6) [facility] W/PLT COUNT & AUTO [id number] 04:31:00 Test Item Value Reference Range Interpretation [...] PERCENT (BEAKER) (test code = 2801) Prothrombin time/[id number] 04:30:00 Test Item Value Reference Range Interpretation [...] valves. Lab Interpretation Abnormal (test code = 68313-5) [facility]PROT[facility]OMBIN [facility]/[id number] 04:30:00 Test Item Value Reference Range Interpretation [...] for patients wiht mechanical heart valves.Prepare Leuko-Red [id number] 23:54:00 Test Item Value Reference Range Interpretation Comments CROSSMATCH (test code = 2264) COMPATIBLE Unit ABO (test code = B Pos 7622417) UNIT NUMBER (test code = [id number] 934-0) Status (test code = 3782907) TX_TIMEINCHART Blood Bank Product (test code RED BLOOD CELLS = 2263) PRODUCT CODE (test code = V1590I76 933-2) [facility]ECG 12 [id number] 10:52:57Interface, External Ris In - 01/18/2020 10:53 AM CDTVentricular Rate 84 BPMAtrial Rate 84 BPMP-R Interval 228 msQRS Duration 86 msQ-T Interval 414 msQTC Calculation(Bazett) 489 msP [place] 89 degreesR [place] 40 degreesT [place] 35 degreesSinus rhythm with 1st degree A-V blockNonspecific ST abnormalityProlonged QTAbnormal ECGNo previous ECGs availableConfirmed by MD HARRIETT, ROULA ([id number]) on 01/18/2020 10:52:55 AM [facility]MAGN[facility]IUM2020-06-15 05:53:00 Test Item Value Reference Range Interpretation Comments MAGNESIUM (BEAKER) (test code = 2.4 mg/dL 1.6-2.6 627) Instructor Of Sociology ID - PETEYHUE LBASIC METABOLIC [id number] 05:53:00 Test Item Value Reference Range Interpretation [...] S NOT APPLICABLE FOR DIALYSIS PATIEN TS. Instructor Of Sociology ID - PETEYHUE LPROTHROMBIN TIME/[id number] 05:26:00 Test Item Value Reference Range Interpretation [...] mechanical heart valves.CBC W/PLT COUNT & AUTO [id number] 05:15:00 Test Item Value Reference Range Interpretation [...] = 2801) CBC W/PLT COUNT & AUTO [id number] 12:38:00 Test Item Value Reference Range Interpretation [...] (BEAKER) (test code = 2801) Hemoglobin and dqkjsukzqj0202-07-03 05:57:00 Test Item Value Reference Range Interpretation Comments Hemoglobin (test code = 6.2 13.7- 17.5 GM/DL L 786-4) Hematocrit (test code = 19.3 % 40.1-51 L 4544-3) BEAR (test code = BEAR) Instructor Of Sociology ID - [id number] Lab Interpretation (test Abnormal code = 52629-7) [facility] HospitalHEMOGLOBIN AND [id number] 05:57:00 Test Item Value Reference Range Interpretation Comments HEMOGLOBIN (BEAKER) (test code = 6.2 GM/DL 13.7-17.5 L 410) HEMATOCRIT (BEAKER) (test code = 19.3 % 40.1-51.0 L 411) Instructor Of Sociology ID - [id number] B12 and Dnvaqq6196-94-03 05:35:00 Test Item Value Reference Range Interpretation Comments Vitamin B12 (test code = >2000 213-816 H 2132-9) Folate (test code = 14.20 ng/mL >=7.00 2284-8) BEAR (test code = BEAR) Instructor Of Sociology ID - PIAYA L Lab Interpretation (test Abnormal code = 15051-0) [facility]VITAMIN B12 AND [id number] 05:35:00 Test Item Value Reference Range Interpretation Comments VITAMIN B12 (BEAKER) (test code = > pg/mL 213-816 H 774) FOLATE (BEAKER) (test code = 362) 14.20 ng/mL >=7.00 Instructor Of Sociology ID - MARVA FImrqcmyn6349-92-82 05:27:00 Test Item Value Reference Range Interpretation Comments Ferritin (test code = 947.60 ng/mL 5-275 H 2276-4) BEAR (test code = BEAR) Instructor Of Sociology ID - MARVA L Lab Interpretation (test Abnormal code = 43366-3) [facility] HospitalFERRITIN2020-06-14 05:27:00 Test Item Value Reference Range Interpretation Comments FERRITIN (BEAKER) (test code = 947.60 ng/mL 5.00-275.00 H 361) Instructor Of Sociology ID - MARVA LHEMOGLOBIN AND [id number] 03:47:00 Test Item Value Reference Range Interpretation Comments HEMOGLOBIN (BEAKER) (test code = 5.3 GM/DL 13.7-17.5 LL 410) HEMATOCRIT (BEAKER) (test code = 16.1 % 40.1-51.0 L 411) Instructor Of Sociology ID - MarizaPROTHROMBIN TIME/[id number] 03:38:00 Test Item Value Reference Range Interpretation [...] INR is2.5-3.5 for patients wiht mechanical heart valves.Rfiqymekbkj9847-06-98 02:11:00 Test Item Value Reference Range Interpretation Comments Haptoglobin (test code = 277 mg/dL 14-258 H 4542-7) BEAR (test code = BEAR) Instructor Of Sociology ID - MARVA L Lab Interpretation (test Abnormal code = 08880-5) [facility] HospitalHAPTOGLOBIN2020-06-14 02:11:00 Test Item Value Reference Range Interpretation Comments HAPTOGLOBIN (BEAKER) (test code = 277 mg/dL 14-258 H 366) Instructor Of Sociology ID - MARVA Hicks, TIBC, % sat. (without ferritin)2020-01-17 02:10:00 Test Item Value Reference Range Interpretation Comments Iron (test code = 2498-4) 38.0 ug/dL 40-160 L TIBC (test code = 2500-7) 151 ug/dL 250-450 L Iron % Saturation (test 25 % 20-55 code = 2502-3) BEAR (test code = BEAR) Instructor Of Sociology ID Jose DURHAM L Lab Interpretation (test Abnormal code = 18610-9) [facility] HospitalIRON, TIBC, % SAT. (WITHOUT FERRITIN)2020-01-17 02:10:00 Test Item Value Reference Range Interpretation Comments IRON (BEAKER) (test code = 547) 38.0 ug/dL 40.0-160.0 L TOTAL IRON BINDING CAPACITY 151 ug/dL 250-450 L (BEAKER) (test code = 769) IRON % SATURATION (2) (BEAKER) 25 % 20-55 (test code = 2590) Instructor Of Sociology ID - MARVA PETERSON, hgrfex3242-71-25 02:00:00 Test Item Value Reference Range Interpretation Comments ABO Grouping (test code = 2588) B Rh Factor (test code = 2589) POS [facility] HospitalType and screen, gcgpkivii9813-46-78 01:59:00 Test Item Value Reference Range Interpretation Comments ABO/RH AUTOMATED (BEAKER) (test B POSITIVE code = 2260) Ab Scrn (test code = 890-4) NEGATIVE [facility] HospitalHepatic function [id number] 01:50:00 Test Item Value Reference Range Interpretation Comments Protein, Total (test code 5.8 6.0- 8.3 gm/dL L = 2885-2) Albumin (test code = 2.7 g/dL 3.5-5 L 78440-5) Total Bilirubin (test code 0.6 mg/dL 0.2-1.2 = 1974-2) Bilirubin, Direct (test 0.4 mg/dL 0.1-0.5 code = 1967-7) Alkaline Phosphatase (test 71 U/L 40-150 code = 6768-6) AST (test code = 1920-8) 40 U/L 5-34 H ALT (test code = 1742-6) 26 U/L 6-55 BEAR (test code = BEAR) Instructor Of Sociology ID - MARVA L Lab Interpretation (test Abnormal code = 55421-7) [facility] HospitalLactate dehydrogenase (LDH)2020-01-17 01:50:00 Test Item Value Reference Range Interpretation Comments LDH (test code = 2532-0) 484 U/L 125-220 H BEAR (test code = BEAR) Instructor Of Sociology ID - MARVA L Lab Interpretation (test Abnormal code = 93416-9) [facility]MAGN[facility]IUM2020-06-14 01:50:00 Test Item Value Reference Range Interpretation Comments MAGNESIUM (BEAKER) (test code = 2.4 mg/dL 1.6-2.6 627) Instructor Of Sociology ID - MARVA LBASIC METABOLIC [id number] 01:50:00 Test Item Value Reference Range Interpretation [...] S NOT APPLICABLE FOR DIALYSIS PATIEN TS. Instructor Of Sociology ID - PIAYA LHEPATIC FUNCTION [id number] 01:50:00 Test Item Value Reference Range Interpretation [...] (test code = 26 U/L 6-55 347) Instructor Of Sociology ID Jose DURHAM LLACTATE DEHYDROGENASE (LDH)2020-01-17 01:50:00 Test Item Value Reference Range Interpretation Comments LACTATE DEHYDROGENASE (BEAKER) (test 484 U/L 125-220 H code = 635) Instructor Of Sociology ID Jose DURHAM LSARS-COV2/RT-PCR ([facility])2020-01-17 01:38:00 Test Item Value Reference Range Interpretation Comments SARS-COV2/RT-PCR (test Not Detected Not Detected, Negative code = 9254705) SARS-COV-[address] [facility] (test code = 4389549) Negative results do not preclude SARS-CoV-2 infection [...] of the Act.Fact Sheet for Healthcare Pro viders:https://www.[employer].com/Documents/Xpert%20Xpress%20SARS%20CoV-2/Fact%20Sh eets/302-3802%01OCQH-QFK-0%20HEALTHCARE%20PROVIDERS%20FACT%20SHEET.pdfFact Sheet for Healthcare Patients:https://www.[employer] First/Documents/Xpert%20Xpress%20SARS%20CoV-2/Fact%20Sheets/302-3801%20SARS-COV -2%20PATIENT%20FACT%20SHEET.pdfPerforming Laboratory:[facility], [place] [address]AO/[id number] 01:24:00 Test Item Value Reference Range Interpretation Comments Protime (test code = 16.5 11.9- 14.2 H 5902-2) seconds INR (test code = 1.4 <=5.9 6301-6) PTT (test code = 31.0 22.5- 36.0 52562-1) seconds BEAR (test code = BEAR) Effective 12/31/2018: PT Reference Range ChangeNew: 11.9-14.2 Previous: 11.7-14.7 RECOMMENDED COUMADIN/WARFARIN INR THERAPY RANGESSTANDARD DOSE: 2.0-3.0 Includes: PROPHYLAXIS for venous thrombosis, systemic embolization; TREATMENT for venous thrombosis and/or pulmonary embolus.HIGH RISK: Target INR is 2.5-3.5 for patients wiht mechanical heart valves. Lab Interpretation Abnormal (test code = 00634-5) [facility] HospitalPT/[id number] 01:24:00 Test Item Value Reference Range Interpretation [...] is2.5-3.5 for patients wiht mechanical heart valves.Reticulocyte [id number] 01:20:00 Test Item Value Reference Range Interpretation Comments % Retic (test code = 4.9 % 0.5-1.8 H 55059-3) BEAR (test code = BEAR) Instructor Of Sociology ID - [id number] Lab Interpretation (test Abnormal code = 53849-9) [facility] W/PLT COUNT & AUTO [id number] 01:20:00 Test Item Value Reference Range Interpretation [...] PERCENT (BEAKER) (test code = 2801) RETICULOCYTE [id number] 01:20:00 Test Item Value Reference Range Interpretation Comments RETICULOCYTE COUNT PCT (BEAKER) (test 4.9 % 0.5-1.8 H code = 575) Instructor Of Sociology ID - [id number]
[2020-05-13 10:16] VITALS: BMI 29.8
[2020-05-13] MEDS ORDERED: HEPARIN 500 UNIT/5 ML SYR IV ONE (17:28)
[2020-05-13 17:34] LABS: Hematocrit 24.2 % (39.6-49.0)
== END 2020-05-13 17:40 | disposition home or self-care (01) ==
LOC: DS 09:05
PROVIDERS: ATTEND Internal Medicine Hematology & Oncology
DX: C83.30 Diffuse large B-cell lymphoma, unspecified site (principal); D63.0 Anemia in neoplastic disease; D61.810 Antineoplastic chemotherapy induced pancytopenia
CPT/HCPCS: 36415; 86900; 86850; 86901; 85018; 85014; 36430; J1642; P9016 ×2; J7050 ×2

== ENCOUNTER 2020-06-02 07:26 | Day surgery (SDC) | payer OTHER ==
--- OUTSIDE RECORDS SUMMARY | 2020-06-02 07:32 | XMS REPORT | Clinical Summary ---
:1945 Author Organization [facility] Address [address] [place] [address] Care Team Providers Name Role Phone Unavailable Primary Care Provider Unavailable Allergies No Known Allergies Medications Medication Sig Dispensed Refills Start Date End Date Status flecainide Take 100 mg 0 Active (TAMBOCOR) 100 MG by mouth 2 tablet (two) times daily. amLODIPine Take 5 mg by 0 Active (NORVASC) 5 MG mouth daily. tablet pantoprazole Take 1 30 tablet 0 01/18/2020 Discon tinued (PROTONIX) 40 MG tablet (40 0 (R eorder) tablet mg total) by mouth daily for 30 days. pantoprazole Take 1 60 tablet 0 01/18/2020 Discon tinued (PROTONIX) 40 MG tablet (40 0 (R eorder) tablet mg total) by mouth 2 (two) times daily for 30 days. pantoprazole Take 1 180 tablet 0 01/19/2020 Expir ed (PROTONIX) 40 MG tablet (40 0 tablet mg total) by mouth 2 (two) times daily for [...] ey injury) (HCC); MD Enrique Essential hypertension; Julianicherla, Gastrointestina l hemorrhage with melena; Thao Acute gastric u lcer with hemorrhage MD Wong after 06/02/2019 Social History Tobacco Use Types Packs/Day Years [...] Assigned at Date Recorded Not on file Last Filed Vital Signs Vital Sign Reading Time Taken Comments Blood Pressure 122/64 01/19/2020 7:00 AM CDT Pulse 74 01/19/2020 7:00 AM CDT Temperature 36.3 C (97.3 F) 01/19/2020 7:00 AM CDT Respiratory Rate 18 01/19/2020 7:00 AM CDT Oxygen Saturation 99% 01/19/2020 7:00 AM CDT Inhaled Oxygen Concentration - - Weight 95.7 kg (210 lb 15.7 oz) 01/19/2020 7:00 AM CDT Height 182.9 cm (6') 01/17/2020 12:00 AM CDT Body Mass Index 28.61 01/17/2020 12:00 AM CDT Plan of Treatment Health Maintenance Due Date Last Done Comments COLON CANCER SCREENING COLONOSCOPY 1945 PNEUMOCOCCAL 65+ YRS (1 of 1 - [id number]) 2009 Medicare IPPE (WELCOME TO MEDICARE) [...] procedure are in the results section. after 06/02/2019 Results SARS-CoV2/RT-PCR ([facility]) (02/12/2020 11:50 AM CDT)Only the most recent of2 resultswithin the time period is included. SARS-COV2/RT-PCR Not Detected Not Detected, [facility] Negative [facility] SARS-COV-2 [facility] PERFORMING LAB [facility] Specimen Other - Nasopharyngeal wall structure (b janice structure) Narrative Performed At Negative results do not preclude SARS-CoV-2 [facility] infection and should not be used as [...] the Act. Fact Sheet for Healthcare Providers: https://www.Euroffice.iZettle/Documents/Xpert%20Xpre ss%20SARS%20CoV-2/Fact%20Sheets/302-3802%20SAR S-COV-2%20HEALTHCARE%20PROVIDERS%20FACT%20SHEE T.pdf Fact Sheet for Healthcare Patients: https://www.Blue Security/Documents/Xpert%20Xpre ss%20SARS%20CoV-2/Fact%20Sheets/302-3801%20SAR S-COV-2%20PATIENT%20FACT%20SHEET.pdf Performing Laboratory: [address] [place] [address] Performing Organization Address City/State/Zipcode Phone Number 41 [...] of4 resultswithin the time period is included. Pathologist Sig nature WBC 5.6 3.5 - 10.5 [facility] K/L [facility] RBC 2.50 (L) 4.63 - 6.08 [facility] M/L [facility] Hemoglobin 7.4 (L) 13.7 - 17.5 [facility] GM/DL [facility] Hematocrit 23.1 (L) 40.1 - 51.0 % [facility] MCV 92.4 (H) 79.0 - 92.2 fL [facility] MCH 29.6 25.7 - 32.2 pg [facility] MCHC 32.0 (L) 32.3 - 36.5 [facility] GM/DL [facility] RDW 16.9 (H) 11.6 - 14.4 % [facility] Platelets 156 150 - 450 K/CU [facility] MM [facility] MPV 11.9 9.4 - 12.4 fL [facility] nRBC 0 0 - 0 /100 WBC [facility] % Neutros 73 % [facility] % Lymphs 13 % [facility] % Monos 9 % [facility] % Eos 2 % [facility] % Baso 0 % [facility] # Neutros 4.11 1.78 - 5.38 [facility] # Lymphs 0.74 (L) 1.32 - 3.57 [facility] # Monos 0.53 0.30 - 0.82 [facility] # Eos 0.12 0.04 - 0.54 [facility] # Baso 0.02 0.01 - 0.08 [facility] Immature 2 (H) 0 - 1 % [facility] Granulocytes-Relative [facility] Specimen Blood Performing Organization Address City/State/Zipcode Phone Number [facility] [address] [place] [address] CENTER Prothrombin time/INR (01/19/2020 3:55 AM CDT)Only the most recent of3 results within the time period is included. Pathologist Sig nature Protime 15.3 (H) 11.9 - 14.2 seconds [facility] INR 1.2 <=5.9 [facility] Specimen Blood Narrative Performed At Effective 12/31/2018: PT Reference Range [facility] Change New: 11.9-14.2 Previous: 11.7-14.7 RECOMMENDED COUMADIN/WARFARIN INR THERAPY RANGES STANDARD DOSE: 2.0-3.0 Includes: PROPHYLAXIS for venous thrombosis, systemic embolization; TREATMENT for venous thrombosis and/or pulmonary embolus. HIGH RISK: Target INR is 2.5-3.5 for patients wiht mechanical heart valves. Performing Organization Address City/State/Zipcode Phone Number [address] Magnesium (01/19/2020 3:55 AM CDT)Only the most recent of3 resultswithin the time period is included. Pathologist Sig nature Magnesium 2.2 1.6 - 2.6 mg/dL [facility] Specimen Blood Narrative Performed At [facility] ELVIRA - AYAZ Horne [facility] Performing Organization Address City/[facility] Cent[facility] Phone Number [address] Basic Metabolic Panel (01/19/2020 3:55 AM CDT)Only the most recent of3 results within the time period is included. Sodium 135 (L) 136 - 145 meq/L [facility] Potassium 3.5 3.5 - 5.1 meq/L [facility] Chloride 104 98 - 107 meq/L [facility] CO2 24 22 - 29 meq/L [facility] BUN 20 7 - 21 mg/dL [facility] Creatinine 0.78 0.57 - 1.25 [facility] mg/dL [facility] Glucose 99 70 - 105 mg/dL [facility] Calcium 7.7 (L) 8.4 - 10.2 [facility] mg/dL [facility] EGFR 118Comment: mL/min/1.73 sq [facility] ESTIMATED GFR IS NOT [facility] ACCURATE CENTER CREATININE CLEARANCE IN PREDICTING GLOMERULAR FILTRATION RATE. ESTIMATED GFR IS NOT APPLICABLE FOR DIALYSIS PATIENTS. Specimen Blood Narrative Performed At [facility] ID - AYAZ W [facility] Performing Organization Address City/[facility]/Zipcode Phone Number [facility] [address] [place] [address] CENTER Prepare Leuko-Red RBC (01/18/2020 11:54 PM CDT) Pathologist Sig nature CROSSMATCH COMPATIBLE SAFETRACE TX Unit ABO B Pos SAFETRACE TX UNIT NUMBER [id number] SAFETRACE TX Status TX_TIMEINCHART SAFETRACE TX Blood Bank Product RED BLOOD CELLS SAFETRACE TX PRODUCT CODE [id number] SAFETRACE TX CROSSMATCH COMPATIBLE SAFETRACE TX Unit ABO B Pos SAFETRACE TX UNIT NUMBER [id number] SAFETRACE TX Status TX_TIMEINCHART SAFETRACE TX Blood Bank Product RED BLOOD CELLS SAFETRACE TX PRODUCT CODE [id number] SAFETRACE TX CROSSMATCH COMPATIBLE SAFETRACE TX Unit ABO B Pos SAFETRACE TX UNIT NUMBER [id number] SAFETRACE TX Status TX_TIMEINCHART SAFETRACE TX Blood Bank Product RED BLOOD CELLS SAFETRACE TX PRODUCT CODE [id number] SAFETRACE TX Specimen Other Performing Organization Address [facility] Phone Number SAFETRACE [place] Venous doppler arm, right (01/18/2020 4:00 PM CDT) Pathologist Sig nature Ejection Fraction [facility] ECHO [facility] CPA Specimen Impressions Performed At Right Impression [facility] 1. There is no deep venous [...] Upper Extremities Veins [facility] Demographics Patient Name HOANG CUEVAS Date of Study 01/18/2020 Age 74 Visit Number [id number] Gender Male Accession Number [id number] Date of 1945 Referring Thao Baker Room Number 1023 Physician Zuri Transcription Specialist Wyatt Gonzalez Interpreting Meenakshi newman, S Physician Procedure Type of Study: Veins: Upper Extremities Veins, VENOUS DOPPLER ARM, RIGHT. Indications for Study:Pain and Swelling. Patient Status:STAT. Study Location:Vascular Lab. Technical Quality:Adequate visualization . Risk Factors History of Disease + + + + !Diagnosis !Date !Comments ! + + + + !History/Risk Factors: !01/18/2020!ASHLY, HTN, History of fall 2 days ago ! + + + + Procedure Note Interface, External Ris In - 01/19/2020 11:48 AM CDT PV LAB - Upper Extremities Veins Demographics Patient Name HOANG CUEVAS Geoffrey e of Study 01/18/2020 Age 74 Visit Number [id number] Gen varsha Male Accession Number [id number] Geoffrey e of 1945 Referring Thao Samuel Monge m Number 1023 Physician Zuri Transcription Specialist Wyatt Gonzalez Int erpreting Meenakshi Hill, BALBIRS Adam avalos MD Procedure [...] Performing Organization Address City/State/Zipcode Phone Number [facility] ECHO HEART[facility] REPORT OF PROCEDURE - ENDOSCOPY URL (01/17/2020 5:18 PM CDT) Narrative Performed At This result has an attachment that is no t available. Tissue Exam (01/17/2020 5:03 PM CDT) Case Report Surgical Pathology Report Case: [id number] [facility] Authorizing Provider: David Aquino, Collected: 01/17/2020 05:03 PM [facility] Ordering Location: [address] Received: 01/18/2020 09:09 AM Service Pathologist: Wayne Mcadams MD Specimen: Biopsy, Gastr ic, Random gastric bx ADDENDUM Immunostain for [facility] Addendum helicobacter performed on [facility] el ectronically block A1 is POSITIVE. [facility] sign ed by Wayne Mcadams MD on 01/20/2020 at 10:48 AM DIAGNOSIS PART A RANDOM GASTRIC BIOPSY: [facility] Electronically ANTRAL AND OXYNTIC MUCOSA WITH ACTIVE CHRONIC GASTRITI S. [facility] signed by Pema, NEGATIVE FOR INTESTINAL METAPLASIA, DYSPLASIA, O R INVASIVE CARCINOMA. [facility] MD GRISEL DixonRY STAIN FOR HELICOBACTER IS NEGATIVE. on 01/18/2020 at IMMUNOSTAIN FOR HELICOBACTER IS PENDING, ADDENDUM REPO RT TO FOLLOW. 4:46 PM Signing Pathologist Direct Phone Line: CPT Code(s) 45414, 57211, 53745 [facility] CLINICAL HISTORY GI BLEED [facility] SPECIMEN SOURCE Gastric biopsy [facility] GROSS DESCRIPTION Received in formalin labeled with the patient's name, accession number and "gastric biopsy" are 3 fam-pink tissue fragments measuring up to 0.3 cm in greatest dimension which are filtered and submitted in toto in A1. [facility] [place] (AS[facility] ER MICROSCOPIC PERFORMED. [facility] SPECIAL STUDIES The interpretation of this c ase included the use of immunohistochemistry or special stains. [facility] BLOCK A1- GRISEL PEREA HELICOBACTER IMMUNOSTAIN. [facility] Control Slides Examined: In -house known positive controls were evaluated along with the test tissue. These control slides run alongside of the patients sample show appropriate staining. [facility] vivien and negative controls when available are evaluated Immunohistochemistry technic al testing was performed at [facility], Pathology Laboratory where it was developed and its performance characteristics were determined. It has not be en cleared or approved by [facility] U.S. Food and Drug Administration. The FDA has determined that such clearance or approval is not necessary. The test is used for clinical purposes. It should not be regarde d as investigational or for research. This laboratory is certified under the Clinical Laboratory Improvement Amendments of 1988 (CLIA-88) as qualified to perform high complexity clinical laboratory testing. Gross assessment [facility] was performed at [facility] Pathology, [address] [place] [address], [place] [address], Technical [facility] component was [facility] performed at Pathology, [address] [place] [address], [place] [address], Professional [facility] component was Center, Department of [facility] performed at Pathology, [address] [place] [address], [place] [address], Specimen Tissue - Gastric biopsy sample (specimen ) Performing Organization Address [facility] Centercode Phone Number [address] [phone] CENTER Transfuse Leuko-Red RBC (01/17/2020 8:35 AM CDT)Only the most recent of3 resultswithin the time period is included.Hemoglobin and hematocrit (01/17/2020 5:38 AM CDT)Only the most recent of2 resultswithin the time period is included. Pathologist Sig nature Hemoglobin 6.2 (L) 13.7 - 17.5 GM/DL [facility] Hematocrit 19.3 (L) 40.1 - 51.0 % [facility] Specimen Blood Narrative Performed At [facility] ID - [id number] [facility] Performing Organization Address [facility] Phone Number [address] [address] CENTER ABORH, manual (01/17/2020 1:27 AM CDT) Pathologist Sig nature ABO Grouping B [facility] [address] Rh Factor POS [facility] [address] [address] Specimen Blood Performing Organization Address [facility] Centercode Phone Number [address] [address] Vitamin B12 and Folate (01/17/2020 1:26 AM CDT) Pathologist Sig nature Vitamin B12 >2000 (H) 213 - 816 pg/mL [facility] Folate 14.20 >=7.00 ng/mL [facility] Specimen Blood Narrative Performed At [facility] ID - PIAYA L [facility] Performing Organization Address [facility] Centercode Phone Number [address] [address] CENTER Iron, TIBC, % sat. (without ferritin) (01/17/2020 1:26 AM CDT) Pathologist Sig nature Iron 38.0 (L) 40.0 - 160.0 [facility] ug/dL [facility] TIBC 151 (L) 250 - 450 ug/dL [facility] Iron % Saturation 25 20 - 55 % [facility] Specimen Blood Narrative Performed At [facility] ID - PIHUE L [facility] ICAL [address] Performing Organization Address City/[facility] Centercode Phone Number [address] [address] CENTER Haptoglobin (01/17/2020 1:26 AM CDT) Pathologist Sig nature Haptoglobin 277 (H) 14 - 258 mg/dL [facility] Specimen Blood Narrative Performed At [facility] ID - PIHUE L [facility] CENTER Performing Organization Address [facility] Centercoky Phone Number [address] [address] CENTER Ferritin (01/17/2020 1:26 AM CDT) Pathologist Sig nature Ferritin 947.60 (H) 5.00 - 275.00 ng/mL [facility] Specimen Blood Narrative Performed At [facility] ID - PIHUE L [facility] Performing Organization Address [facility] Centercode Phone Number [address] [address] CENTER Type and screen, automated (01/17/2020 12:57 AM CDT) Pathologist Sig nature ABO/RH AUTOMATED B POSITIVE [facility] Ab Scrn NEGATIVE [facility] Specimen Blood Performing Organization Address City/[facility]/Zipcode Phone Number [address] [phone] PT/aPTT (01/17/2020 12:57 AM CDT) Pathologist Sig nature Protime 16.5 (H) 11.9 - 14.2 seconds [facility] INR 1.4 <=5.9 [facility] PTT 31.0 22.5 - 36.0 seconds [facility] Specimen Blood Narrative Performed At Effective 12/31/2018: PT Reference Range [facility] Change New: 11.9-14.2 Previous: 11.7-14.7 RECOMMENDED COUMADIN/WARFARIN INR THERAPY RANGES STANDARD DOSE: 2.0-3.0 Includes: PROPHYLAXIS for venous thrombosis, systemic embolization; TREATMENT for venous thrombosis and/or pulmonary embolus. HIGH RISK: Target INR is 2.5-3.5 for patients wiht mechanical heart valves. Performing Organization Address City/[facility]/Zipcode Phone Number [address] [address] CENTER Reticulocyte count (01/17/2020 12:57 AM CDT) Pathologist Sig nature % Retic 4.9 (H) 0.5 - 1.8 % [facility] Specimen Blood Narrative Performed At [facility] ID - 6[address] [facility] Performing Organization Address City/[facility]/Zipcode Phone Number [address] [address] CENTER Lactate dehydrogenase (LDH) (01/17/2020 12:57 AM CDT) Pathologist Sig nature LDH 484 (H) 125 - 220 U/L [facility] Specimen Blood Narrative Performed At [facility] ID - PIAYA L [facility] Performing Organization Address City/[facility]/Zipcode Phone Number [address] [address] CENTER Hepatic function panel (01/17/2020 12:57 AM CDT) Pathologist Sig nature Protein, Total 5.8 (L) 6.0 - 8.3 gm/dL [facility] Albumin 2.7 (L) 3.5 - 5.0 g/dL [facility] Total Bilirubin 0.6 0.2 - 1.2 mg/dL [facility] Bilirubin, Direct 0.4 0.1 - 0.5 mg/dL [facility] Alkaline Phosphatase 71 40 - 150 U/L [facility] AST 40 (H) 5 - 34 U/L [facility] ALT 26 6 - 55 U/L [facility] Specimen Blood Narrative Performed At [facility] ELVIRA - MARVA Aguila [facility] Performing Organization Address City/State/[place] [address] CENTER ECG 12 lead (01/17/2020 12:08 AM CDT) Specimen Narrative Performed At Ventricular Rate 84 BPM GE MUSE Atrial Rate 84 BPM P-R Interval 228 ms QRS Duration 86 ms Q-T Interval 414 ms QTC Calculation(Bazett) 489 ms P [place] 89 degrees R [place] 40 degrees T [place] 35 degrees Sinus rhythm with 1st degree [...] 414 ms QTC Calculation(Bazett) 489 ms P [place] 89 degrees R [place] 40 degrees T [place] 35 degrees Sinus rhythm with 1st degree A-V block Nonspecific ST abnormality Prolonged QT Abnormal ECG No previous ECGs available Confirmed by MD LORENZANA YOCHAI ([id number]) on 01/18/2020 10:52:55 AM Performing Organization Address City/State/Zipcode Phone Number GE MUSE after 06/02/2019 Insurance Payer Benefit Plan / Subscriber ID Effective Dates Phone Addre ss Type Group UNITED [employer]ARE UNITED MEDICARE [id number] 2019-Presen - MEDICARE MGD HMO t CARE CDC REVIEW CDC REVIEW [id number] 2020-[place]se [address] [place] [address] Advance Directives For more information, please contact: [phone] Code Status Date Activated Date Inactivated Comments Full Code 01/16/2020 11:57 PM 01/19/2020 11:53 AM This code status was determined by: Patient
--- OUTSIDE RECORDS SUMMARY | 2020-06-02 07:32 | XMS REPORT | Continuity of Care Document ---
:1945 Author Organization [employer] Care Team Providers Name Role Phone [employer] Unavailable Un available Problems Problem Status Onset [...] Q12H, # 180 tab, 3 Refill(s), Pharmacy: [facility] amLODIPine 5 5 mg = 1 Active 03/05/20 Medica l mg oral tab, PO, 19 Group tablet BID, # 60 tab, 11 Refill(s), Pharmacy: [facility] amLODIPine 5 5 mg = 1 No Longer 08/25/19 Medi crow mg oral tab, PO, Active 19 Group tablet BID, # 60 tab, 11 Refill(s), Pharmacy: [facility]08 flecainide 100 mg = 1 Active 06/05/20 Medica l 100 mg oral tab, PO, 18 Group tablet Q12H, # 180 tab, 3 Refill(s), Pharmacy: [facility]08 amLODIPine 5 5 mg = 1 Active 02/14/20 Medica l mg oral tab, PO, 18 Group tablet BID, # 30 tab, 11 Refill(s), Pharmacy: [facility]08 flecainide 50 50 mg = 1 Active 02/14/20 Medi crow mg oral tab, PO, 18 Group tablet Q12H, # 60 tab, 5 Refill(s), Pharmacy: [facility] Allergies, Adverse Reactions, Alerts [...] Number For Provider Date Date Visit Outpatient [id number] RANDEE 04/19 [facility] [place] Outpatient [id number] ECHO VISIT 05/09 Act [facility] Outpatient [id number] [facility] [place] [facility] [id number] [facility] [place] [facility] [id number] [facility] [place] [facility] [id number] [facility] [id number] OTHER 07/03 Active [facility] VISIT Santino [facility] Outpatient [id number] Wesley 07/03 07/04 Cardiology [place] /2016 [facility] Outpatient [id number] Wesley 07/03 07/04 [facility] [place] [id number]/16 08/18 Cardiology Medical /2017 [facility] Outpatient [id number] RANDEE 12/25 [facility] [place] [facility] Outpatient [id number] Randee 12/25 12/26 Cardiology [place] /2017 [facility] Outpatient [id number] ECHO VISIT 02/13 [facility] [place] [facility] [id number] [facility]13 [facility] Outpatient [id number] Wesley 02/13 02/14 [facility] [place] [facility] [id number] Wesley 02/13 02/14 Cardiology [place] /2017 [facility] Outpatient [id number] RANDEE 06/05 [facility]2018 [facility] Outpatient [id number] Randee 06/05 06/06 Cardiology [place] /2017 [facility] Outpatient [id number] ECHO VISIT 09/05 Act [facility] Outpatient [id number] RANDEE 09/05 Active [facility] /2019 [facility] Outpatient [id number] Wesley 09/05 09/06 [facility] Cardiology [place] /2018 [facility] Outpatient [id number] Randee 09/05 09/06 [facility] Card[facility] [place] /2018 [facility] Outpatient [id number] Randee 03/05 Active [facility] [place] /2019 [facility] Outpatient [id number] Randee 03/05 03/06 Cardiology [place] /2018 [facility] Outpatient [id number] Randee 09/03 Active [facility] /2020 [facility] Outpatient [id number] Randee 09/03 09/04 Cardiology [place] /2019 /2019 [facility] Outpatient [id number] Randee 03/03 Active [facility] [place] /2020 [place] Procedures No Data Provided for This Section [...]
--- OUTSIDE RECORDS SUMMARY | 2020-06-02 07:34 | XMS REPORT | Continuity of Care Document ---
:1945 Author Organization [facility] t Address [address] [place] [address] [address]. [address] [place] [address] Care Team Providers Name Role Phone JACQUIE Attending Clinician Unavailable Jacquie GAMBLE Attending Clinician Enrique Avila MD Attending Clinician Zuri GAMBLE, Wong Attending Clinician [phone] Chana GAMBLE, Thi Attending Clinician Tima GAMBLE, Raymond Attending Clinician Bib Mi Attending Clinician VISIT, SUPERVISOR BOARDING ECHO Attending Clinician Unavailable JACQUIE Admitting Clinician Unavailable Payers Payer Name Policy Type Policy Effective Date Expiration Date Sour ce Number [facility] [id number] [facility] - MEDICARE MGD 00:00:00 - [facility] MEDICARE [id number]/08/06 020-Present CDC REVIEWCDC [id number] [facility] [id number]/ 00:00:00 - Medic [place] 10[place] [address] Problems Condition Condition Condition Status Onset Resolution [...] kes - anemia anemia 00:00: Medical 00 [place] ASHLY (acute ASHLY (acute Disease Active [facility] kidney kidney 6-14 [facility] - injury) injury) 00:00: Medical 00 [place] GIB GIB Disease Active [facility] (gastroint (gastroint 6-13 Emmie kes - estinal estinal 00:00: Medical bleeding) bleeding) 00 [facility] Essential Essential Disease Active [facility] hypertensi hypertensi 6-13 Emmie kes - on on 00:00: Medical 00 [place] 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 M emoria a 00:26:45 l (disorder) Shaun n Bradycardi a (disorder) Active Problem 09/06/2019 [facility] Hypertensi Problem Active 2019-09-06 emoria ve 00:26:45 l disorder, [place] systemic Hypertensi arterial ve (disorder) disorder, systemic arterial (disorder) Active Problem 09/06/2019 Medical Group Obesity Problem Active 2019-09-06 León tj (disorder) 00:26:45 l Obesity [place] (disorder) Active Problem 09/06/2019 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 Social History Social Habit Start Date Stop Date Quantity Comments Source History [facility] - Alcohol Std Drinks Medica Center History [facility] - Alcohol Binge Medical Surekha ter Sex Assigned At [facility] [place] Tobacco use and 2020-01-18 2020-01-18 Never used [facility] - exposure 00:00:00 00:00:00 [facility] Alcohol intake 2020-01-18 2020-01-18 Current [facility] es - 00:00:00 00:00:00 non-drinker of Medical Ce nter alcohol (finding) History [facility] 2020-01-17 2020-01-[address] [facility] [address] [place] - Alcohol Frequency 00:00:00 00:00:00 [facility] Smoking Status Start Date Stop Date Source Never sm[facility] Medications Ordered Filled Start Stop Current Ordering Indication Dosage Frequency Signature Comments Components Source Medication Medication Date Date Medication? Clinician (SIG) Name Name flecainide 2020-0 Yes 100mg Q.5D Take [address] (TAMBOCOR) 6-16 mg by [facility] - 100 MG 09:53: mouth 2 Medical tablet 22 (two) Center times daily. amLODIPine 2019-0 Yes 5mg QD Take [address] (NORVASC) 5 6-16 by mouth Luke s - MG tablet 09:53: daily. Medica l 22 Center pantoprazol 2020-0 2020- No 40mg Q.5D Take [address] e 6-16 09-14 tablet (40 [facility] - (PROTONIX) 00:00: 23:59 mg total) M edical 40 MG 00 :00 by mouth 2 Center tablet (two) times daily for 90 days. pantoprazol 2020-0 2020- No 40mg Q.5D Take [address] [...] Center tablet daily for 30 days. flecainide Yes 100 mg = 1 M emoria 100 mg oral 8- tab, PO, l tablet 15:37: Q12H, # [place] 09 180 tab, 3 Refill(s), Pharmacy: [facility] amLODIPine Yes 5 mg = 1 Mem oria 5 mg oral 8-01 tab, PO, l tablet 15:37: BID, # 60 Shaun n 07 tab, 11 Refill(s), Pharmacy: [facility] amLODIPine No 5 mg = 1 Mem oria 5 mg oral 1-21 tab, PO, l tablet 22:16: BID, # 60 Shaun n 21 tab, 11 Refill(s), Pharmacy: [facility] flecainide 2017-08 Yes 100 mg = 1 M emoria 100 mg oral 1-01 tab, PO, l tablet 16:47: Q12H, # [place] 00 180 tab, 3 Refill(s), Pharmacy: [facility]08 amLODIPine 2018-0 Yes 5 mg = 1 Mem oria 5 mg oral 7-12 tab, PO, l tablet 15:46: BID, # 30 Shaun n 41 tab, 11 Refill(s), Pharmacy: [facility] flecainide 2018-0 Yes 50 mg = 1 Me moria 50 mg oral 7-12 tab, PO, l tablet 15:46: Q12H, # 60 Celina nn 00 tab, 5 Refill(s), Pharmacy: [facility] Vital Signs Vital Name Observation Time Observation Value Comments Source Systolic blood 2020-01-19 07:00:00 122 mm[Hg] [facility] Diastolic blood 2020-01-19 07:00:00 64 mm[Hg] [facility] Heart rate 2020-01-19 07:00:00 74 /min [facility] Body temperature 2020-01-19 07:00:00 36.28 Stacey [facility] Respiratory rate 2020-01-19 07:00:00 18 /min [facility] Body weight 2020-01-19 07:00:00 95.7 kg [facility] BMI 2020-01-19 07:00:00 28.61 kg/m2 [facility] Oxygen saturation in 2020-01-19 07:00:00 99 /min [facility] Arterial blood by Medical Ce nter Pulse oximetry Body height 2020-01-17 00:00:00 182.9 cm [facility] Systolic (mm Hg) 2019-09-03 16:13:00 León rial [place] Diastolic (mm Hg) 2019-09-03 16:13:00 Mem orial [place] Heart Rate 2019-09-03 16:13:00 [facility] Height 2019-09-03 16:13:00 187.96 cm [facility] Weight 2019-09-03 16:13:00 [facility] BMI Calculated 2019-09-03 16:13:00 Reneori al [place] Weight 2019-03-05 14:43:00 [facility] [place] Height 2019-03-05 14:43:00 187.96 cm [facility] [place] BMI Calculated 2019-03-05 14:43:00 Memori al [place] Heart Rate 2019-03-05 14:43:00 [facility] [place] Systolic (mm Hg) 2019-03-05 14:43:00 León rial [place] Diastolic (mm Hg) 2019-03-05 14:43:00 Mem orial [place] Systolic (mm Hg) 2018-09-05 17:41:00 León rial [place] Diastolic (mm Hg) 2018-09-05 17:41:00 Mem orial [place] Heart Rate 2018-09-05 17:41:00 [facility] [place] Height 2018-09-05 17:41:00 187.96 cm [facility] [place] Weight 2018-09-05 17:41:00 [facility] [place] BMI Calculated 2018-09-05 17:41:00 Memori al [place] BMI Calculated 2018-06-05 16:04:00 Memori al [place] Height 2018-06-05 16:04:00 185.42 cm [facility] [place] Weight 2018-06-05 16:04:00 [facility] [place] Systolic (mm Hg) 2018-06-05 16:04:00 León rial [place] Diastolic (mm Hg) 2018-06-05 16:04:00 Mem orial [place] Heart Rate 2018-06-05 16:04:00 [facility] [place] BMI Calculated 2018-02-13 15:20:00 Memori al [place] Weight 2018-02-13 15:20:00 [facility] [place] Systolic (mm Hg) 2018-02-13 15:20:00 León rial [place] Diastolic (mm Hg) 2018-02-13 15:20:00 Mem orial [place] Heart Rate 2018-02-13 15:20:00 [facility] [place] Height 2018-02-13 15:20:00 185.42 cm [facility] [place] Height 2017-12-25 15:51:00 185.42 cm [facility] [place] BMI Calculated 2017-12-25 15:51:00 Memori al [place] Weight 2017-12-25 15:51:00 [facility] [place] Systolic (mm Hg) 2017-12-25 15:51:00 León rial [place] Diastolic (mm Hg) 2017-12-25 15:51:00 Mem orial [place] Heart Rate 2017-12-25 15:51:00 Randell De Height 2017-07-03 17:24:00 185.42 cm Randell De Weight 2017-07-03 17:24:00 Randell Rossann Systolic (mm Hg) 2017-07-03 17:24:00 León De Diastolic (mm Hg) 2017-07-03 17:24:00 Rene De BMI Calculated 2017-07-03 17:24:00 Patrick Shuklaann Heart Rate 2017-07-03 17:24:00 [facility] Procedure Date / Time Performed Performing Clinician Sour e SARS-COV2/RT-PCR ([facility] & 2020-02-12 11:50:00 [facility] - REF LABS) [facility] Center REPORT OF PROCEDURE - 2020-01-20 13:53:10 Provider, Default [facility] ENDOSCOPY SCAN [facility] RHYTHM STRIP - SCAN 2020-01-20 13:53:05 Provider, Default [facility] TRANSFUSION SERVICE 2020-01-19 18:10:35 Provider, Default [facility] - REPORT - SCAN [facility] BASIC METABOLIC PANEL (7) 2020-01-19 03:55:00 MELISAS Dhillon I [facility] MAGNESIUM 2020-01-19 03:55:00 [facility]/INR 2020-01-19 03:55:00 [facility] W/PLT COUNT & AUTO 2020-01-19 03:55:[address] [facility] S [facility] DIFFERENTIAL PREPARE LEUKO-REDUCED RBC 2020-01-18 23:54:00 MELISSA Dhillon I [facility] TRANSFUSION SERVICE 2020-01-18 18:00:14 Provider, Default [facility] VENOUS DOPPLER ARM, RIGHT 2020-01-18 16:00:00 Thao Keating [facility] BASIC METABOLIC PANEL (7) 2020-01-18 04:48:00 MELISSA Dhillon I [facility] MAGNESIUM 2020-01-18 04:48:00 [facility] PROT[facility] TIME/INR 2020-01-18 04:48:00 Jacquie [facility] CBC W/PLT COUNT & AUTO 2020-01-18 04:48:00 Jacquie [facility] REPORT OF PROCEDURE - 2020-01-17 17:18:56 YasmeenDavid torres [facility] - ENDOSCOPY URL [facility] TISSUE EXAM 2020-01-17 17:03:00 [facility] 2020-01-17 13:03:00 [facility] UPPER ENDOSCOPY,BIOPSY 2020-01-17 13:03:00 Tima David [facility] CBC W/PLT COUNT & AUTO 2020-01-17 12:11:00 Van Cope [facility] TRANSFUSE LEUKO-REDUCED 2020-01-17 08:35:27 [facility]LOOD CELLS TRANSFUSE LEUKO-REDUCED 2020-01-17 06:06:38 [facility] RED BLOOD CELLS HEMOGLOBIN AND HEMATOCRIT 2020-01-17 05:38:00 Jacquie [facility] PROTHROMBIN TIME/INR 2020-01-17 03:16:00 [facility] HEMOGLOBIN [facility] HEMATOCRIT 2020-01-17 03:16:00 Jacquie [facility] TRANSFUSE LEUKO-REDUCED 2020-01-17 02:57:49 [facility] RED BLOOD CELLS ABORH, MANUAL 2020-01-17 01:27:00 Marla Berger [facility] VITAMIN B12 AND FOLATE 2020-01-17 01:26:00 [facility] IRON, TIBC, % SAT. 2020-01-17 01:26:00 Jacquie [facility] - [facility]WITHOUT FERRITIN[facility] 2020-01-17 01:26:00 [facility] HAPTOGLOBIN 2020-01-17 01:26:00 [facility] BASIC METABOLIC PANEL (7) 2020-01-17 00:57:00 [facility] MAGNESIUM 2020-01-17 00:57:00 [facility] HEPATIC FUNCTION PANEL 2020-01-17 00:57:00 [facility] S [facility] PT/APTT 2020-01-17 00:57:00 [facility] RETICULOCYTE COUNT 2020-01-17 00:57:00 [facility] LACTATE DEHYDROGENASE 2020-01-17 00:57:00 [facility] ([facility]) TYPE AND SCREEN, 2020-01-17 00:57:00 [facility] AUTOMATED CBC W/PLT COUNT & AUTO 2020-01-17 00:57:00 [facility] DIFFERENTIAL SARS-COV2/RT-PCR ([facility] & 2020-01-17 00:37:00 [facility] REF LABS) ECG 12-LEAD 2020-01-17 00:08:25 [facility] Plan of Care Planned Activity Planned Date Details Comments Source Future Scheduled 2020-04-05 INFLUENZA VACCINE (#1) [facility] Test 00:00:00 [code = INFLUENZA Medical Ce nter VACCINE (#1)] Future Scheduled 2019-08-05 Medicare IPPE (WELCOME [facility] - Test 00:00:00 TO MEDICARE) [code = Medical Center Medicare IPPE (WELCOME TO MEDICARE)] Future Scheduled 2009 PNEUMOCOCCAL 65+ Y[facility] - Test 00:00:00 (1 of 1 - Medical Center [id number] PCV13) [code = PNEUMOCOCCAL 65+ YRS (1 of 1 - [id number] PCV13)] Future Scheduled [address] [facility] - Test 00:00:00 malignant neoplasm of Medica l Center colon (procedure) [code = 025842619] Encounters Start End Encounter Admission Attending Care Care Encounter Source Date/Time Date/Time Type Type Clinicians Facility Department ID 2019-09-03 2019-09-03 Outpatient Hiwot, [facility] [id number] 10:00:00 23:59:59 Abraham Mccartney 16 2019-03-05 2019-03-05 Outpatient Hiwot, [facility] [id number] 10:00:00 23:59:59 Abraham Mccartney 15 2018-09-05 2018-09-05 Outpatient Hiwot, [facility] [id number] 11:15:00 23:59:59 Abraham Mccartney 14 2018-09-05 2018-09-05 Outpatient Hiwot, [facility] [id number] 11:15:00 23:59:59 Abraham Mccartney 14 2018-09-05 2018-09-05 Outpatient VISIT, [facility] [id number] 10:45:00 23:59:59 NURSE SUPERVISOR BOARDING 13 ECHO 2018-09-05 2018-09-05 Outpatient VISIT, [facility] [id number] 10:45:00 23:59:59 NURSE SUPERVISOR BOARDING 13 ECHO 2018-06-05 2018-06-05 Outpatient Hiwot, [facility] [id number] 11:00:00 23:59:59 Abraham Mccartney 12 2018-02-13 2018-02-13 Outpatient Hiwot, [facility] [id number] 10:45:00 23:59:59 Abraham Mccartney 11 2018-02-13 2018-02-13 Outpatient VISIT, [facility] [id number] 10:00:00 23:59:59 NURSE SUPERVISOR BOARDING 10 ECHO 2017-12-25 2017-12-25 Outpatient Hiwot, [facility] [id number] 11:00:00 23:59:59 Abraham Mccartney 09 2017-08-16 2017-08-17 Outpatient [facility] [id number] 15:30:00 23:59:59 00 2017-08-16 2017-08-17 Outpatient MHMG [facility] [id number] 15:30:00 23:59:59 00 2017-07-03 2017-07-03 Outpatient Hiwot, [facility] [id number] 12:00:00 23:59:59 Abraham Mccartney 2017-07-03 2017-07-03 Outpatient NEO Mi [facility] [id number] 11:30:00 23:59:59 Abraham Mccartney 07 Results Test Description Test Time Test Comments Results Result Comments Source SARS-CoV2/RT-PCR ([facility] & Ref Labs) 2020-02-13 11:36:00 Test Item Value Reference Range Interpretation Comme nts SARS-COV2/RT-PCR (test code = Not Detected Not Detected, Negative 40133-7) SARS-COV-2 PERFORMING LAB [facility] (test code = 98644-0) BEAR (test code = BEAR) Negative results [...] of the Act. Fact Sheet for Healthcare Providers:https://www.[employer]/Documents/Xpert%20Xpress %20SARS%20CoV-2/Fact%20Sheets /974-5132%52IQXA-CXI-2%20HEAL THCARE%20PROVIDERS%20FACT%20S HEET.pdf Fact Sheet for Healthcare Patients:https://www.[employer]/Documents/Xpert%20Xpress% 20SARS%20CoV-2/Fact%20Sheets/ 302-3801%77CNIK-ETA-8%20PATIE NT%20FACT%20SHEET.pdf Performing Laboratory:[facility] [place] [address] [facility] ([facility] & REF LABS)2020-02-13 11:36:00 Test Item Value Reference Range Interpretation Comments SARS-COV2/RT-PCR (test Not Detected Not Detected, Negative code = 4472027) SARS-COV-2 PERFORMING LAB [facility] (test code = 0145543) Negative results do not preclude SARS-CoV-2 infection [...] of the Act.Fact Sheet for Healthcare Pro viders:https://www.Frontleaf.[employer]/Documents/Xpert%20Xpress%20SARS%20CoV-2/Fact%20Sh eets/3023802%83XQEO-SIQ-8%20HEALTHCARE%20PROVIDERS%20FACT%20SHEET.pdfFact Sheet for Healthcare Patients:https://www.[employer]/Documents/Xpert%20Xpress%20SARS%20CoV-2/Fact%20Sheets/3023801%20SARS-COV -2%20PATIENT%20FACT%20SHEET.pdfPerforming Laboratory:[facility], [place] [address]Xrtwml [id number] 10:48:00 Test Item Value Reference Range Interpretation Comments Case Report (test code Surgical Pathology = 104) Report Case: [id number] Authorizing Provider: David Alfred, Collected: 01/17/2020 05:03 PM Ordering Location: [address] Received: 01/18/2020 09:09 AM Service Pathologist: Wayne Mcadams MD Specimen: Biopsy, Gastric, Random gastric bx ADDENDUM (test code = [id number] 3381) OzFDYur1jwMCXnlZIqIvWv MzNcZnRuYmpcdWMxXGRlZm Fic2luo903cFGsf1utURPa BpF4xIKiLQEaeFJmU532u5 gbl7rtleUtnSW7GOMaFMU9 WIrgqwMrvoO1KIlttGAsOs A6EXopenPlOPeorgKvjdXv Tfe8PCUnK521QBO5xOclo4 chKCL7XXJnNXScKhFzUd3w cFRsP778LZVyBCTKSHYpzD n1SWQkjmYrcmEzeMDLb449 M743n4okKMUcacGrgMdSmo rmb4xwT438QAUqcQOanpOz ZmEiFWVsiDAcfCG2NPNuMS 4celkoBSuiILvnTOCqdrC4 YUUccAOgQ5WvBMVfWH6djj zeZOV7JTzvLYQfZKW2PrRe CQFgq4Vssuf2CyVmbc3vxe 16FNR0i0KdnXarHJJ7OCN6 QyBfIq7udYDgTBUhNY9jUd ByxTBmQYNiag55eSbuJSej szGplI6zQzQxMEArwXVqCJ DvYK7gfTHkBERppY6jteau XHBnYnJkcmhlYWRccGdicm NbIm0tgTyqKKO4JOsaY7tv mB9sQpC8EIdsB0absU9iCR h9GWthmKQ4NRJjvA0mMU4r sweya8ieBLtfCVmlPROjml U5bcY9QNTwlYJiH3CmrV2r UNFjDN6kxaldb9nwTOX9CS rvFMCcYGC8EnEgIZXaw5Mw upk3RbNif9XqpRPpHOrzJ3 4ng653FMRnscZiT4lnxPHc naaayVEscaxkKLuazoH2UH FsXHBsYWluXGYwXGZzMjBc bGFuZzEwMzNcaGljaFxmMF yyTvJsFLNjYVymU1jiAwJx PhQeWXUFlN60df1ihBCoyy Qpy3QdyODvkBHzCuDrnMAi CIVbawBgli3rCTMzvvAlwS 1hoaTAFLOooyZAQ9QQYDyJ CD2heJQqjB== DIAGNOSIS (test code = x2wzkOLaCGXey6vjNNQybA 3220) FuZzEwMzNcZnRuYmpcdWMx EAhcmbDwQHeqn3GrE4ZbXt AwMFxhbnNpXGRlZmxhbmcx FHTbRJG6viJtCQHlUVfqTY PlSFzoWe2xhHOpdQcaRpOc ERJdm6bogtPQnhipxAd4l7 pzTQDkJoA0kACeGEnhJ0uh ulJsdNRcMLXbAPl1hX32YI NzsY7hpVEdLHiuypThDvK0 RKdsMUBwBmC5DUYwxMOgBP SsG2jkKRYwZZbtORXuUZdo pTZuKPF5rAzrx2K6aJSwoS FyqFxqGvXmYhRsAUZOr7Hf FKu6sIjuV1RsOEDhSsA5rC QgUGFyYWdyYXBoIEZvbnQ7 jQ33IFafphL6pSGte4Bhk1 8bm233yZ3pbCVvLFP3OLDy XMInoCAhWYLxWUM9JHIaeW GkG4l4FeSvpKOdF4Y2AmYo sXRgG8L4SgGirOEjB2W9Kw AckUSjGKHjhYYbZq2coQYi qDKgdu8dxe10EIK0d5XhaI tiMSQ9CAX7NgPbFp7mbHJr VOIdCG8hVwMcwQYzQTTpeu 83rXqlZCdptjOqsU4yHqJz AWSteQUzFKLiYL6iaTUgVT HxpC5ufgxaZTBjOkMlvthv WLFioXtjzfGiOs2xxJfkHH J4SUghF9volN5dJdO8WCdp Q7jnbC7hORy6XAqbnPA5MN WhxK1yZX1yfwazj0xsTaLg UV1dltweo6ysGlEmEK4xbm c8s7ftMfDjDR9kexvbm1tu NzIwXGhlYWRlcnkwXGZvb3 TttlgaDROxz0OqU1QuuBza O53ffWfaL96iVCDxlUiztW 8rlBpetG4cNuLpEzVvUMsw bFxwbGFpblxmMVxmczIwXG htagzzAGVrWKjoH4anGmXk VSMxvAzkIYkxk6ZgWDMtLQ ZzMjAgUEFSVCBBIFJBTkRP OAWRPLGYTfyBIYQRO7RWPO pccGFyIEFOVFJBTCBBTkQg X8uBMgFDMnTCTHQXB0JlE3 lDQMIJT4EAEsYtR0vXH40R QyBHQVNUUklUSVMuXHBhci UQMOfBLZrBABFQU8OtIX0S DPTEUI9SKHVHBGLKCUuSF3 mERKTCYETDOMIOLUNiZZ3H IElOVkFTSVZFIENBUkNJTk 7CRZ4jdDGbYPoNExSDMH9b F8WIHoVCEOITVOiISFZIJs LXNYoLW07THGWZPQWqTYRr TkVHQVRJVkUuXHBhciBJTU 6XEc4UNFBVCvOWV9UwUKAS SUNPQkFDVEVSIElTIFBFTk RJTkcsIEFEREVORFVNIFJF HE7QEUUAScZCD5gXH2dpEW Rkqe13EPY4RgJgo2S9VNA9 DOXrUHGqn4kxOOLkkQHlYt EwMzNcZnRuYmpcdWMxXGRl HjOpw4djs638xCLud3kcLZ PaEcW6mDOyOTUivICoK766 JHVqNXdrd6pcj5OlWUOglQ Vfe3O3YDOTzoxiwGg4bVvj V38ad6Z8SucpO3rjACMyML DjS5LzCP1nMWLiCuc9LOX5 LFG3JQRkEODcF0YeTF7iZU XdeJZhUFd2c9ikxHfqYANg SEH2k1ibPJxiqoJzBE1wha 5zlYw6c8tydsCxIRGpSBBv fYERUWRnU4WppLgxBd8rtP e7bLdgFskkJSZ9Awl5SZ9b of82dyw5sVqkLEWulpoaVu M4QRzlVRNftfspIYp7NVbi FLTnvKB2WBCouPYdC1RyKA WyMM6pswf5ITD8WSuaUSFp IuX3EJCxaCVgGLXlzDudNC bpd370EAW2GiQcVG2vI4Db q0G1xI7ovVTmKOYujMWpXp PvEDOrxv8nxKXoYGgbt1Ua XGB7seR0nBBevENiTBBzLg O9JHqgHP0mvn92MFPeYBC5 no9rjGYruGiqutSorFNgHI jrV9DlMZXib418QMFxA2Xw UVKhw7K7ylGrEuNuIVPfbD W4enK6SDFvNB2ntryug4jm YWejLPmxLODqtgS2ydE5RC WcdANuO4BufR4lBLNiMH6c nypeu7qdVCR8QVxrIYJzWW M4FmSsXWHzt0Rsnik6PuCi z5OqhLItWXftO97fj646AD WhfhDfG9onsPLqwwerfFTx yncnNSdomuX7ULBpMSmbrg lbKLAyXRglI1ipGzWkGTYk cSrqLObat0IzKGFuDLUwAf UshWMsVLMmOrs8AWKzpOKf ZOLzIkVtY5grrbdgWqSPXN Gow0zuZ0gjvYTIdZGyJ2Fz UGhvbmUgTGluZTogODMyLT U0ZJ83CEejAKTsah66 CPT Code(s) (test code m7acpKUlTFEgjTJcYsCgQU = 3357) ChITZzo3giOCAagYLsMfFt MzNcZnRuYmpcdWMxXGRlZm Wpz4vln539bHOrq0kdPEXt SxY0zBRrKNUtlRCaI139p9 hho5oydyHqaVO4EZKfTOV9 LJgtflPoumQ0DJmjhVAeJc A7TJxnhtNoCHfpjwWtnaMe Kby9VQNfE302CNZ6yYdtc7 cbCWF0QCDxXVLlXgYeEm3u nBEkK050PCBdZILQOOMyjN p6PYDsbxZxhcVojLKBx714 P613v8ksPHXcmhIleWkNaf zmr5jhT504XLKbmBKtxjZa OeJmMLQxgHAowYD5WYEqNZ 4gottkTwCeVF0xhtqnEbEo MR3sewa2PmZvSD1mjchwKw DmVBolSSHzcxzjLNQdv8Tk fbqmAU0wE6Yrq0I8vK0qqQ TuABAffKWfYxWeSXMgrz5v dYCiDIibe9MvBUI2ejW7dV OeyDFrPTTnCP26Ojkdm8Ra JpgbCSN1PCVvopDih4Xcg6 itVvEprlMvZ5lvO6XuQHGl HUMuRVWjHnEmjlEda3Syf6 LvwEAmrHg4e9mrRRVwBQFl hEjwx2fcIVI5CCFtU6Q7iB Fmh9ynUGlcWQYydSM3ttnk TOtsMSQxnjA3ipouTGwcEH MipCI0vgkaHIvwBNCoHrB3 dywlJTnqWBFnUCR4VKzfl0 05JLG0XSvxYdovXKreJNHp bmNvbnRccGduZGVjXHBsYW luXHBsYWluXGYwXGZzMjRc kLpylJhiqJ6rUjUfAkIsCS leBO1pJSXmS5wphQBtHIDu FBFzG3oaObTqfT0heStgBB omdeYxQWt0KeA8SPV9JFZy MiwgODgzNDJccGFyfQ== CLINICAL HISTORY (test d7empMPlOQSufHNkUtTmTD code = 3356) JfWTQtr7lgCHJtdDWtQkXr MzNcZnRuYmpcdWMxXGRlZm Iiw2qck629fMWgi9yqNYWc NgP3tPJuHXNniGPkT584MS YkEKilv0gnl2XaWHHmtIPn n8G4YAJZxidecXu2lDfrT5 5kf5P4XremO7rxWVXhWZYl D8GgPQ9kATPrFps0TEC9XY M3VFFgDLTzX3EpOV7dWXNo rCMkEFg4q8sxyVyhGDHcSN E2y2jmHTsxjlLjRL3taf0r fMr1a8lmliWiHAUaZVIqzR MWLYStA9MveEemHr8zrJl9 cXbnPwfvWFS1Chr2KN7lpw 96phu0gRhzIXQcssraXzO2 TUbuZHZzmlmnUTg6ADhtCZ JnbDcyMFxtYXJncjcyMFxt YXJndDcyMFxtYXJnYjcyMF akUIUrELM1ZQzin001SIJ2 GZpsq6ysh4qlxHOtUru2UM DqIoHmAosvCBijv4Gdb5eb CPExkn1oNQP5aWJegEzmd2 J7nJRiMBWenTHnexPwKFFw FnZ7ZXmeHY5xfd30RFYoRF L6ey3erBQsaAuhahGppQAc FHixK0TsTUYne594JTUxY8 CaTBYdu6V0vjVsMfXoQFZp mTV7zbW8KJCpHHq5jUMzej V9qsOjcDGeE8qruN49NtVg aLHvK0KswI44QnYlgNGuH4 GpkN72MzGmrDIgZ9VdyY70 KhBeoXDoNDUbaKHfFf2hfS ArlBEiy9NtwPRrNUaoU47n a051TGAzvgTjQ4clnCRznz ecnEQzibulASonrqG3ULg3 cnBhclxxbFxwbGFpblxmMV xmczIwXGxhbmcxMDMzXGhp M6xtRtWhVTUuyXrmAXwql9 XlPHBhMSYaNmXqT5qgMpjD RURccGFyfQ== SPECIMEN SOURCE (test s7iqoTFtLXOeyCLoHjLyLM code = 3377) TsOPEhz7gxMEBshFKcZeMb MzNcZnRuYmpcdWMxXGRlZm Xck7eky126qYCkr1tlVVLd GfI8sYRaLJJeqZVpX520p9 aoz5eszmFynKS4PSRiXFW0 VQgaqeExvyI9QLpkeIGrBq F8QQxklbAyVTglkfDkwlJv Hoq3FLIzV203CDK4bSfvr8 zbBVC6YNAuWAKnJyQfWo1s gJZmV996TUBjSGQFMLOayQ i4CBGlavIgjjUzpVWNg532 G156b4uwHOExreUxjVpRph dyd4miH845YJKjeKVugyRw SaOmAMXneKCmbNJ6IHBsYK 3ixvugRpUnDT6bidwdVeLx IN8zcdk4OzUbJC4coegvTj HzGUruXAHqxulsBPJpc1Rr tunnXU6pO1Csq2G9rC7hdX IpCTXjaNQwPfMtQHBohy1a kOArQXgwe2VzLZE7twQ2yZ LkwDRkJDHbXM46Exbkj8So OlifROY3ONCbarVas6Gmr2 ozTuOkzaUsM0cmU4XrSTJs KEAaOWEzVxXbejXjs8Lhh6 MztWWtqXn9b8fuTTBtPVLr wAulr6brMKU1XLSzV7P3qM Ayq9mvGUtfCUMugTK8ojrl MSixWCRimfP9diapSWcrVU SnnRW0ivmdHQsmDNQtJlI8 biioVGsrQMXzKKU8VKymn1 12MAX4QMclYbrcHPotKIOa bmNvbnRccGduZGVjXHBsYW luXHBsYWluXGYwXGZzMjRc rPvvaMhgcQ7aNuMbRaHeTT dlPV1oZSRbL5pmmJXzEBYt SBOfU2qzQxUeoK3rgIojYK iqbgTeBZlph4ZpuFIxHynb nKX8SHIsdd4= GROSS DESCRIPTION (test n7gkrTTvJOTmkRRbWxVbUN code = 3366) LxFBRye3rvZPEjyGUsZhLh MzNcZnRuYmpcdWMxXGRlZm Adx6sia361lELlm5mjGVWa SkX2dQByCJYlpJPeI755o4 kkz9sjhxWsoFF7AJQfTGD6 KXnoryAsteE4ZZeosYAuPf X1IModfzAfGEwoakLbmgOx Byb6FDHeS671BRD9tTnbi6 jmFUH2CLBjNDHkRaGtSw4j qYTvF680WPTsNWSBKSLebB x8JCDzkcOwxiFjzMEHp751 W705f2klQYTdlmTvbQtTwz udo9zoM852FEJjcVElmrPr ZwXaBMSutPUkyFD0THUaUW 1hekzbInIcWY1hjakuUqLt UE8qwee3SnBkWG9ugftfTf MxJZxmAMNzqyjxMWZmc6Oy yrbnVF9mE6Hme9Z0fL3qiW WyZNHzoWVyIoAnGWWlqz7p fEZnDNcjp5MqIOF9srR6lF AsuCZmRYKsMD09Atwxj0Yd SzkfPXM6ETHwjoJqu9Qlw7 xrWnWpxxCqF2ceL7VxOWLi YRKkSSZzNmIdrvZoe8Qbp9 ZwcSBiwNh6p3vlOKOxXESb zQtfp1vvVMH6LOQuJ2R2cT Rcf3pjYSkzNEXzuVU7kiak PEahIDLuxqJ2uwjhXLrpVT JbxMT9ygsiRRmeTQWmHtB5 uerbGEevSIMnFZE5NYpbf7 12WBA5QMmmNoykLXasDLLx bmNvbnRccGduZGVjXHBsYW luXHBsYWluXGYwXGZzMjRc sWbdySesiH1eSpWcVjRtSE emHX8pAOObV0wheSJtMAIj QMDvJ7cbWuYibX0rxQhtSW rxqmDgSYLtM3MsytFkRMzu ISFipz7xiKzpLVjqQsDuTJ Uim7w7kFQ3cJNexVH2eWFb bRewGG8orMZvMRRiT2Zpa0 ubvvJcyS2hTRAcIC0bEDPn SAS4fhcnDFGom5CptQWnQF JlIDMgdGFuLXBpbmsgdGlz q8TtROLsRJrpKF52lbBgUM OhuXSedpkmgPFwmO9sCF8h LLJkVIwiFUyiLBV8SZW5YS IthROuj5nccpX3aWkmtTLs qyHfWgmjbESfZHDiPQ5oHX G5Fo8ciNCoCEAootB9s4Zf IGluIEExLlxwYXJccGFyIF XwvSDiEVLrH7MuqQubxcxn ELPrKWJJZ7GgN74yuVMcbC == MICROSCOPIC DESCRIPTION n8syqXCiMQVnyBFwSrYpXY (test code = 3371) JbDHPqy1doWKDprPYrAzMh MzNcZnRuYmpcdWMxXGRlZm Xhn5hat044kHTad7puKPGh EtL5rNKkVTGreYZpR634b5 pej6cgfuPmsLH4PFScYBY0 PXauowFuscP4HWkzrHNeOg H6SJbcyhTwTSwpfkQmgzVq Ssk5QFKwZ921EYQ5lZclg0 naFJJ3RXBoBRZwSmGgMp4l zARiF064QHAbQEHVZXKgpW h8WZGezwOdrtAmcWGSp864 F311h6hcONUwzoLbiFgLbx rzb1yvE801ZELumFDkegOw TsVqMKFliLDfhON4KBVsUI 4xmfvdBpXoYZ0ehzscNmBt EI2abqt7NkCgVI8esqmrEn RzYOhuJOOrqtnyQQFby8Bv nmijVP5rM4Spp0E1dK5yvW QtFKKrqJXvGcEyQTQnqu5b tHMyHQjwo7BoOBH3cnC6yT UdpIYvBEEsIS90Ztbpx9Hz XjhjZHB8TIZwciLyy2Chi1 ghQoTfdmBwK6fmJ7NzZXDa DOBqDTRmQpFirgXfr6Hzg1 LppBZozTy4l0uwIIKaTOOa iFamb3azPZU8UVAlG7Z3gZ Cuw0rmUSzmCDOzeKE9hzhb JOgwTUWiocU0tutuUDciAI TioME7tclcANnjOBGpRwJ6 vanqDAdhVOAeHXS2CKxha8 43LMK3LGxgAahkENhaKMRc bmNvbnRccGduZGVjXHBsYW luXHBsYWluXGYwXGZzMjRc pKhxtMiltE3sWtKeQaOuYT qtOU9xGXIiJ8oyuUEeCUEb WWDuG0lkBiSojQ2otGxxLS nwdxXfOSAHBsXARe7FPO0i cGFyfQ== SPECIAL STUDIES (test d2kmeTCqNNQujLWbFdQiLE code = 3376) UlEQEwg8jxFSFhsRWuCbTy MzNcZnRuYmpcdWMxXGRlZm Txy5xvj220iYBmj3ziZLIh EwO7rARcNBHepBUqH579GY WyOCpqt8sjt0UsOTWslTSp j0U0BSPBQQlwYgRaT141QC ZqFJfty5blu6TzEGIstJIv l1F0JAQLxgfrnPi7wPtgI1 4cx5P3WkxfZ8cyQLZyBTIn X6LwWA3qNQBhOla5JZJ0QY U5EUHgAYPpY7YrGE1vKROz rWKdLQs7r9mlpVljGWFaGN V7o7ohYCxhmaJ8BJ1chj6q tRm1d1awvxCxVGBlXBKeuK FRDJSjK1OxwEyaKz3mmMi8 g6kdWvciqpJ8bMUaPeRyLa MyMFxsaTBccmkwIENvUGF0 rKCRCRf3T351o0giTAJrfp RzgCpDggvjl3inH106GUVo cGVydzEyMjQwXHBhcGVyaD Z9TMOpLC9hsgxuYoFdXB1x gqmwZbDdIQ5dllo5CpXjNN 1hcmdiNzIwXGhlYWRlcnkw BHDcg4UlkfncBB5vL1Pvq8 M9tU0qeWRhLWAgxYYhVlJe YDYiuq1axVHxZFxfNZE4AR BgzdCqh9Ilg9ikJqVzttEk K7sxV0SlCDRzWHFzJNJjWr MlkfKkh9Jcl8EnuLYkxEu0 b2bxUXZqQMDnyMggs0xnFT W6OKOdU5D5uKYes1syQOrx SPPpoDE8ycmfGWquXNVihp Y3mlnjLBptYNOpsQG0ydrq LUysFBElMsD0jcqkAPmyGO PfNJU8DPzop091SZA0EVlv YmtwYWdlXHBnbmNvbnRccG duZGVjXHBsYWluXHBsYWlu XGYwXGZzMjRccWxccGxhaW 6iIqVwAiZsWbnsBT1oQEOm S7orgJRsLIQuAMKgQ7lqIt EzsD9yaKfmNYdeVwYuOlIw QhBZiNShwT52FEBfoiY0DU Xkp97mu0BhpVboktUvFYPo XOagX6c7MIFnHUYkBND9z9 Ukz7IotI1gxV6vnXrbhY1n xIDxeXI0tljhg4Fjn4OgH2 lhbCBzdGFpbnMuXHBsYWlu XGYxXGZzMjJcbGFuZzEwMz NcaGljaFxmMVxkYmNoXGYx UPtkG3alJhLpB5UbRHBkAs XvoRVpG8uucGJaTSXxMTpp XGYxXGZzMjJcbGFuZzEwMz NcaGljaFxmMVxkYmNoXGYx CEhqG4mzMtBbV5PnTBJeOf IwTkhMF5obNYFkLUlEVnHK IN3rN2ACXsJJKMEQOGrWI7 8TJCAZKGPuWO8YQR4XO4YS QV2gGVQeDYqnOZPcKULrUr JcbGFuZzEwMzNcaGljaFxm ARfxMsLqJHZyEBabF6ecBv KqB6GnFHFrAhVhjOPiF0xx cGFyXHBsYWluXGYxXGZzMj JcbGFuZzEwMzNcaGljaFxm LPfsNjYoDAFvLDpsL1lbFq LrC7IiVCFdErXuA39pxBVu bCBTbGlkZXMgRXhhbWluZW I2PMHLrm0ws0XvUTTmmb43 zpXcs3NssKt6IYGyd533hb 4oilO9OJJnBSP8WBm6EHYb UDMmzI3lBbY6oVBmXSMzBQ G7UAS7WLEou3B5JF3eWHVu UKBmNDGcogHzk7spe6yrGK BxOQO1ekGyjL2tN0UdJFSc b6JvnZepCKRzwEkkcgTfXX LqpGIxJCCxpW39UEMfdEMs rAEiVLCaKFB1BJvydK1qEi ENbiFwkm5pjDPhm1FchFb3 ZSBhbmQgbmVnYXRpdmUgY2 9jiQImgIXuz3ngpjQwlrXm sAAjzUQuWCWjAUP5NRd3MQ RlZFxwbGFpblxmMVxmczIy MVlsbzvqJXNmOWmqO3lmIv MgMZLcoCkvKGaag7TbQBBh BZOpOyebkyJmZUk3rcDmPU BhclxwbGFpblxmMVxmczIy PZpruzskGKEeMPxhM7sxEv YbHOTywKajQXetd2ZoUCDu XGNmMlxmczIyICBccGxhaW 9uFlJbIzYaBertHH9uYENc L8tpgSOeZCJgSCDjK2ndHf DoeD4ptMcmUFskIzQfAcHf MlxsdHJjaFxwYXJccGxhaW 6eIlRkIuWsQpgrZP8hKPJr S2ibxMDxOVWvAOLoC6chPc GavA7aqOboHNorNyExSjCp McNVqW29rd9kvAV2c9EhAB 5us6EhbMG4SXCfpruzXPny sKSwzUysBgY8OUXuvFQpCf 8qcHPdRTI8EVNxkQvbuaTX gP8jLPNsFAxmsOPaoariBV xmczIyXGxhbmcxMDMzXGhp J8wlBiAoLTXgcHbtXCebk6 NoXGYxXGNmMlxmczIyXHU4 QgQ9DErjVXFzeMygcS3xTh KjToXmBbsmUD3fBLIvR9zz yBPpYHGvTYVeC8gaDbNmeE 9jaFxmMVxjZjJcZnMyMiBz GT3sSJfvGFxlI3VcpPIrEK OSXUCnf7jaA8loGWUjz9Cx yD7vaCY7yTOnBYWchFG0XA CfAKL7BWfdvKFjNEWzUJDm kCWleCXcCy8goAXcU6CpH4 rvqkWpcFGkaZJ6mFYxURam ndLrKRG5NEPizV5mQI9wNX FfpSKwYR5rxUPeNBLxVMNn IFEtGHAqa5TyYYMqpm73ES XnKihmeOwcTCLjLy7uWj0z MDPegnKqEWO8MgHVST7lka uagSHzeHgeid4iDOklWEPL PNIkFAXzZPX8QJMivC2xZQ U1gPK0WVL9J0buL7ksSBQm hqGrXI2kCZHcgXVpiqGuGY vqJK9ivGFtNZKgb1Vortyw HQOmRWB4TFG3KNyhPMJzGN BdNh5pXCGznT5fP9XmFKN7 fmDed3HxHqVLdGSujG38pB Ozaq41ZVJmHBUqM1PuUMDr IGFzIGludmVzdGlnYXRpb2 0prRGlnuGfh6AqikWrCMZt E7geNMHjwLUflGEyh6ZfiG 0ibFYjqrYzZOJ0kVRtHKJy uN0cZBFlbMayLMCzeG2tX9 TpYSgoMn3pTGMvsvtkNC1q vv07NN7nwgQbQN6snnDjWF 21tjXlUpQmWTx0WNqRUDoD BVh1OTLhmvLeoNPdqGBgBB RteW5xjPWmBa9atMTydZtx PLFbgIIbXHhajLtgU2dzxu cxNQchgVWvf9NdzF0dzOA9 CAQ5zU2yRinogJWjipygZm xmczIyXGxhbmcxMDMzXGhp W3gsTxEiVICnsHvrYfyrv8 NoXGYyXGZzMjJccGFyXHBh dzKmfMjcaV8iIpScDtWrOT tlaCRykoelZiabzoD4OWSh cn0= Gross assessment was [facility] performed at ([facility], = 2777) Department of Pathology, [address] [place] [address], Technical component was [facility] performed at ([facility], = 2778) Department of Pathology, [address] [place] [address], Professional component [facility] was performed at ([facility], code = 2779) Department of Pathology, [address] [place] [address], [facility] [id number] 10:48:00Surgical Pathology Report Case: [id number] Authorizing Provider: David Alfred, Collected: 01/17/2020 05:03 PM OrderingLocation: [address] Received: 01/18/2020 09:09 AM Service Pathologist: [...] REPORT TO FOLLOW.Signing Pathologist Direct Phone Line: [phone] signed by Wayne Mcadams MD on 01/18/2020 at 4:47 [id number], [id number], [id number] BLEEDGastric biopsyReceived in formalin labeled withthe patient's name, accession number and "gastric biopsy" are 3 fam-pink tissue fragments measuring up to 0.3 cm in greatest dimension which are filtered and submitted in toto in A1.MARYLIN Augustin (ASCP)cmPERFORMED.The interpretation of this case included the use of immunohistochemistry or special stains.BLOCK A1- WARTHIN STARRY, HELICOBACTER IMMUNOSTAIN.Control Slides Examined: In-house known positive controls were evaluated along with the test tissue. These control slides run alongside of the patients sample show appropriate staining. Internal positive and negative controls when available are evaluated Immunohistochemistry technical testing was performed at [facility], Pathology Laboratory where it was developed [...] qualified to perform high complexity clinical laboratory testing.[facility], Department of Pathology, [address] [place] [address], [facility], [address] [place] [address], [facility], Department of Pathology, [address] [place] [address], Juhhue doppler arm, right 2020-01-19 11:48:48Ejection [facility] ECHO HEARTLAB MKCKESSON CPACSRight Impression1. There is [...] Date of Study 01/18/2020 Age 74 VisitNumber [id number] Gender Male Accession Number [id number] Date of 1945 Referring Thao Room Number 1023 Physician Zuri Wind Technician Wyatt Gonzalez Interpreting BEBA Portillo Physician ProcedureType [...] cm/s ; Diameters are measured in [facility] Basic Metabolic [id number] 04:55:00 Test Item Value Reference Range Interpretation [...] (test code = 7.7 mg/dL 8.4-10.2 L 20934-7) EGFR (test code = 118 mL/min/1.73 sq m [facility] [address]-0) NOT ACCURATE CREATININE CLEARANCE IN PREDICTING GLOMERULAR FILTRATION RATE . ESTIMATED GFR I S NOT APPLICABLE FOR DIALYSIS PATIENTS. BEAR (test code = BEAR) Team Supervisor ID Jose JACOME W Lab Interpretation Abnormal (test code = 83841-5) [facility]00 Test Item Value Reference Range Interpretation Comments Magnesium (test code = 2.2 mg/dL 1.6-2.6 16006-6) BEAR (test code = BEAR) Team Supervisor ID Jose JACOME W Lab Interpretation (test Normal code = 24303-2) [facility] 04:55:00 Test Item Value Reference Range Interpretation Comments MAGNESIUM (BEAKER) (test code = 2.2 mg/dL 1.6-2.6 627) Team Supervisor ELVIRA Garcia AYAZ WBASIC METABOLIC [id number] 04:55:00 Test Item Value Reference Range Interpretation [...] S NOT APPLICABLE FOR DIALYSIS PATIEN TS. Team Supervisor ID - AYAZ WCBC with platelet count + automated [id number] 04:31:00 Test Item Value Reference Range Interpretation [...] 450 K/CU MM MPV (test code = 45490-7) 11.9 fL 9.4-12.4 nRBC (test code = [...] 2801) Lab Interpretation (test code = Abnormal 03797-9) [facility] W/PLT COUNT & AUTO [id number] 04:31:00 Test Item Value Reference Range Interpretation [...] PERCENT (BEAKER) (test code = 2801) Prothrombin time/[id number] 04:30:00 Test Item Value Reference Range Interpretation [...] valves. Lab Interpretation Abnormal (test code = 94581-3) [facility] HospitalPROTHROMBIN TIME/[id number] 04:30:00 Test Item Value Reference Range Interpretation [...] for patients wiht mechanical heart valves.Prepare Leuko-Red [id number] 23:54:00 Test Item Value Reference Range Interpretation Comments CROSSMATCH (test code = 2264) COMPATIBLE Unit ABO (test code = B Pos 0078656) UNIT NUMBER (test code = [id number] 934-0) Status (test code = 4353787) TX_TIMEINCHART Blood Bank Product (test code RED BLOOD CELLS = 2263) PRODUCT CODE (test code = N6505V30 933-2) [facility] HospitalECG 12 bjcy7456-65-56 10:52:57Interface, External Ris In - 01/18/2020 10:53 AM CDTVentricular Rate 84 BPMAtrial Rate 84 BPMP-R Interval 228 msQRS Duration 86 msQ-T Interval 414 msQTC Calculation(Bazett) 489 msP [place] 89 degreesR [facility] 40 degreesT [facility] 35 degreesSinus rhythm with 1st degree A-V blockNonspecific ST abnormalityProlonged QTAbnormal ECGNo previous ECGs availableConfirmed by MD HARRIETT, ROULA ([id number]) on 01/18/2020 10:52:55 AM [facility] HospitalMAGNESIUM2020-06-15 05:53:00 Test Item Value Reference Range Interpretation Comments MAGNESIUM (BEAKER) (test code = 2.4 mg/dL 1.6-2.6 627) Team Supervisor ID - PIAYA LBASIC METABOLIC [id number] 05:53:00 Test Item Value Reference Range Interpretation [...] S NOT APPLICABLE FOR DIALYSIS PATIEN TS. Team Supervisor ID - PIAYA LPROTHROMBIN TIME/SZA8810-15-67 05:26:00 Test Item Value Reference Range Interpretation [...] mechanical heart valves.CBC W/PLT COUNT & AUTO [id number] 05:15:00 Test Item Value Reference Range Interpretation [...] = 2801) CBC W/PLT COUNT & AUTO [id number] 12:38:00 Test Item Value Reference Range Interpretation [...] (BEAKER) (test code = 2801) Hemoglobin and gcpdjalpjo5074-55-35 05:57:00 Test Item Value Reference Range Interpretation Comments Hemoglobin (test code = 6.2 13.7- 17.5 GM/DL L 786-4) Hematocrit (test code = 19.3 % 40.1-51 L 4544-3) BEAR (test code = BEAR) Team Supervisor ID - [id number] Lab Interpretation (test Abnormal code = 14599-7) [facility] HospitalHEMOGLOBIN AND [id number] 05:57:00 Test Item Value Reference Range Interpretation Comments HEMOGLOBIN (BEAKER) (test code = 6.2 GM/DL 13.7-17.5 L 410) HEMATOCRIT (BEAKER) (test code = 19.3 % 40.1-51.0 L 411) Team Supervisor ID - [id number] B12 and Fqgryt1929-04-81 05:35:00 Test Item Value Reference Range Interpretation Comments Vitamin B12 (test code = >2000 213-816 H 2132-9) Folate (test code = 14.20 ng/mL >=7.00 2284-8) BEAR (test code = BEAR) Team Supervisor ID - MARVA L Lab Interpretation (test Abnormal code = 48538-0) [facility] HospitalVITAMIN B12 AND [id number] 05:35:00 Test Item Value Reference Range Interpretation Comments VITAMIN B12 (BEAKER) (test code = > pg/mL 213-816 H 774) FOLATE (BEAKER) (test code = 362) 14.20 ng/mL >=7.00 Team Supervisor ID - MARVA CRgsghykw2251-85-74 05:27:00 Test Item Value Reference Range Interpretation Comments Ferritin (test code = 947.60 ng/mL 5-275 H 2276-4) BEAR (test code = BEAR) Team Supervisor ID - MARVA L Lab Interpretation (test Abnormal code = 39633-6) [facility] HospitalFERRITIN2020-06-14 05:27:00 Test Item Value Reference Range Interpretation Comments FERRITIN (BEAKER) (test code = 947.60 ng/mL 5.00-275.00 H 361) Team Supervisor ID - MARVA LHEMOGLOBIN AND [id number] 03:47:00 Test Item Value Reference Range Interpretation Comments HEMOGLOBIN (BEAKER) (test code = 5.3 GM/DL 13.7-17.5 LL 410) HEMATOCRIT (BEAKER) (test code = 16.1 % 40.1-51.0 L 411) Team Supervisor ID - [id number] TIME/[id number] 03:38:00 Test Item Value Reference Range Interpretation [...] INR is2.5-3.5 for patients wiht mechanical heart valves.Rhiegmjlcmt1068-99-17 02:11:00 Test Item Value Reference Range Interpretation Comments Haptoglobin (test code = 277 mg/dL 14-258 H 4542-7) BEAR (test code = BEAR) Team Supervisor ID - MARVA L Lab Interpretation (test Abnormal code = 44805-7) [facility] HospitalHAPTOGLOBIN2020-06-14 02:11:00 Test Item Value Reference Range Interpretation Comments HAPTOGLOBIN (BEAKER) (test code = 277 mg/dL 14-258 H 366) Team Supervisor ID - MARVA Hicks, TIBC, % sat. (without ferritin)2020-01-17 02:10:00 Test Item Value Reference Range Interpretation Comments Iron (test code = 2498-4) 38.0 ug/dL 40-160 L TIBC (test code = 2500-7) 151 ug/dL 250-450 L Iron % Saturation (test 25 % 20-55 code = 2502-3) BEAR (test code = BEAR) Team Supervisor ID - MARVA L Lab Interpretation (test Abnormal code = 92843-1) [facility] HospitalIRON, TIBC, % SAT. (WITHOUT FERRITIN)2020-01-17 02:10:00 Test Item Value Reference Range Interpretation Comments IRON (BEAKER) (test code = 547) 38.0 ug/dL 40.0-160.0 L TOTAL IRON BINDING CAPACITY 151 ug/dL 250-450 L (BEAKER) (test code = 769) IRON % SATURATION (2) (BEAKER) 25 % 20-55 (test code = 2590) Team Supervisor ID - MARVA KRISTEN, yugmsn1763-90-84 02:00:00 Test Item Value Reference Range Interpretation Comments ABO Grouping (test code = 2588) B Rh Factor (test code = 2589) POS [facility] HospitalType and screen, eokfinqae8649-36-02 01:59:00 Test Item Value Reference Range Interpretation Comments ABO/RH AUTOMATED (BEAKER) (test B POSITIVE code = 2260) Ab Scrn (test code = 890-4) NEGATIVE [facility] HospitalHepatic function [id number] 01:50:00 Test Item Value Reference Range Interpretation Comments Protein, Total (test code 5.8 6.0- 8.3 gm/dL L = 2885-2) Albumin (test code = 2.7 g/dL 3.5-5 L 69716-0) Total Bilirubin (test code 0.6 mg/dL 0.2-1.2 = 1975-2) Bilirubin, Direct (test 0.4 mg/dL 0.1-0.5 code = 1968-7) Alkaline Phosphatase (test 71 U/L 40-150 code = 6768-6) AST (test code = 1920-8) 40 U/L 5-34 H ALT (test code = 1742-6) 26 U/L 6-55 BEAR (test code = BEAR) Team Supervisor ID - MARVA L Lab Interpretation (test Abnormal code = 27656-3) [facility] HospitalLactate dehydrogenase (LDH)2020-01-17 01:50:00 Test Item Value Reference Range Interpretation Comments LDH (test code = 2532-0) 484 U/L 125-220 H BEAR (test code = BEAR) Team Supervisor ID - PETEYHUE L Lab Interpretation (test Abnormal code = 99349-5) [facility] HospitalMAGNESIUM2020-06-14 01:50:00 Test Item Value Reference Range Interpretation Comments MAGNESIUM (BEAKER) (test code = 2.4 mg/dL 1.6-2.6 627) Team Supervisor ID - MARVA LBASIC METABOLIC [id number] 01:50:00 Test Item Value Reference Range Interpretation [...] S NOT APPLICABLE FOR DIALYSIS PATIEN TS. Team Supervisor ELVIRA DURHAM LHEPATIC FUNCTION [id number] 01:50:00 Test Item Value Reference Range Interpretation [...] (test code = 26 U/L 6-55 347) Team Supervisor ELVIRA DURHAM LLACTATE DEHYDROGENASE (LDH)2020-01-17 01:50:00 Test Item Value Reference Range Interpretation Comments LACTATE DEHYDROGENASE (BEAKER) (test 484 U/L 125-220 H code = 635) Team Supervisor ELVIRA DURHAM LSARS-COV2/RT-PCR ([facility])2020-01-17 01:38:00 Test Item Value Reference Range Interpretation Comments SARS-COV2/RT-PCR (test Not Detected Not Detected, Negative code = 0973937) SARS-COV-2 PERFORMING LAB [facility] (test code = 0548084) Negative results do not preclude SARS-CoV-2 infection [...] of the Act.Fact Sheet for Healthcare Pro viders:https://www.[employer]/Documents/Xpert%20Xpress%20SARS%20CoV-2/Fact%20Sh eets/302-3802%13YFKK-HDY-8%20HEALTHCARE%20PROVIDERS%20FACT%20SHEET.pdfFact Sheet for Healthcare Patients:https://www.FONU2/Documents/Xpert%20Xpress%20SARS%20CoV-2/Fact%20Sheets/302-3801%20SARS-COV -2%20PATIENT%20FACT%20SHEET.pdfPerforming Laboratory:[facility] [place], [place] [address]RD/[id number] 01:24:00 Test Item Value Reference Range Interpretation Comments Protime (test code = 16.5 11.9- 14.2 H 5902-2) seconds INR (test code = 1.4 <=5.9 6301-6) PTT (test code = 31.0 22.5- 36.0 73103-3) seconds BEAR (test code = BEAR) Effective 12/31/2018: PT Reference Range ChangeNew: 11.9-14.2 Previous: 11.7-14.7 RECOMMENDED COUMADIN/WARFARIN INR THERAPY RANGESSTANDARD DOSE: 2.0-3.0 Includes: PROPHYLAXIS for venous thrombosis, systemic embolization; TREATMENT for venous thrombosis and/or pulmonary embolus.HIGH RISK: Target INR is 2.5-3.5 for patients wiht mechanical heart valves. Lab Interpretation Abnormal (test code = 20688-6) [facility] HospitalPT/[id number] 01:24:00 Test Item Value Reference Range Interpretation [...] is2.5-3.5 for patients wiht mechanical heart valves.Reticulocyte [id number] 01:20:00 Test Item Value Reference Range Interpretation Comments % Retic (test code = 4.9 % 0.5-1.8 H 48844-5) BEAR (test code = BEAR) Team Supervisor ID - [id number] Lab Interpretation (test Abnormal code = 20843-0) [facility] W/PLT COUNT & AUTO [id number] 01:20:00 Test Item Value Reference Range Interpretation [...] PERCENT (BEAKER) (test code = 2801) RETICULOCYTE [id number] 01:20:00 Test Item Value Reference Range Interpretation Comments RETICULOCYTE COUNT PCT (BEAKER) (test 4.9 % 0.5-1.8 H code = 575) Team Supervisor ID - [id number]
[2020-06-02] MEDS ORDERED: NA CHLORIDE 0.9% 250 ML ONE (09:03)
[2020-06-02 10:49] LABS: MPV 8.9 fL (7.6-11.3)
[2020-06-02 11:13] LABS: Platelet Estimate DECR
[2020-06-02 12:49] VITALS: O2SAT 100
[2020-06-02 12:51] VITALS: BMI 26.8
[2020-06-02 12:56] VITALS: BP 125/55; TEMP 97.1
== END 2020-06-02 10:40 | disposition home or self-care (01) ==
LOC: DS 07:26
PROVIDERS: ATTEND Internal Medicine Hematology & Oncology
DX: D69.59 Other secondary thrombocytopenia (principal); C83.30 Diffuse large B-cell lymphoma, unspecified site
CPT/HCPCS: 36415; 86900; 86850; 85049; 86901; 36430; P9035; J7050

== ENCOUNTER 2020-06-23 06:54 | Day surgery (SDC) | payer OTHER ==
--- OUTSIDE RECORDS SUMMARY | 2020-06-23 06:57 | XMS REPORT | Continuity of Care Document ---
:1945 Author Organization [facility] Care Team Providers Name Role Phone [facility] Unavailable Un available Problems Problem Status Onset [...] Q12H, # 180 tab, 3 Refill(s), Pharmacy: [facility] amLODIPine 5 5 mg = 1 Active 03/05/20 Medica l mg oral tab, PO, 19 Group tablet BID, # 60 tab, 11 Refill(s), Pharmacy: [facility]08 amLODIPine 5 5 mg = 1 No Longer 08/25/19 Medi crow mg oral tab, PO, Active 19 Group tablet BID, # 60 tab, 11 Refill(s), Pharmacy: [facility]08 flecainide 100 mg = 1 Active 06/05/20 Medica l 100 mg oral tab, PO, 18 Group tablet Q12H, # 180 tab, 3 Refill(s), Pharmacy: [facility]08 amLODIPine 5 5 mg = 1 Active 02/14/20 Medica l mg oral tab, PO, 18 Group tablet BID, # 30 tab, 11 Refill(s), Pharmacy: [facility]08 flecainide 50 50 mg = 1 Active 02/14/20 Medi crow mg oral tab, PO, 18 Group tablet Q12H, # 60 tab, 5 Refill(s), Pharmacy: [facility] Allergies, Adverse Reactions, Alerts [...] Number For Provider Date Date Visit Outpatient [id number] RANDEE 04/19 [facility] Santino Outpatient [id number] ECHO VISIT 05/[address] [facility] Outpatient [id number] [facility] [id number] [facility] [id number] [facility]ANDEE 06/[facility] [id number] RANDEE 07/03 [facility] [id number] OTHER 07/03 Active [facility] VISIT Benjamin [facility] Outpatient [id number] Wesley 07/03 07/04 Cardiology [place] /2016 [facility] Outpatient [id number] Wesley 07/03 07/04 [facility] [id number] 08/16 08/18 Cardiology [facility] Outpatient [id number] RANDEE 12/25 [facility] Santino [facility] Outpatient [id number] Randee 12/25 12/26 Cardiology [place] /2017 [facility] Outpatient [id number] ECHO VISIT 02/13 [facility] [id number] RANDEE 02/13 [facility] Outpatient [id number] Wesley 02/13 02/14 [facility] [place] [facility] [id number] Wesley 02/13 02/14 Cardiology [place] /2017 [facility] Outpatient [id number] RANDEE 06/05 [facility]2018 [facility] [id number] Randee 06/05 06/06 Cardiology [place] /2017 [facility] Outpatient [id number] ECHO VISIT 09/05 [facility] Outpatient [id number] RANDEE 09/05 [facility] /2019 [facility] Outpatient [id number] Wesley 09/05 09/06 [facility]iology [place] /2018 [facility] [id number] Randee 09/05 09/06 [facility] /2018 [facility] Outpatient [id number] Randee 03/05 [facility]2019 [facility] [id number] Randee 03/05 03/06 [facility] /2018 [facility] Outpatient [id number] Randee 09/03 [facility]2020 [facility] [id number] Randee 09/03 09/04 [facility] /2019 /2019 [facility] Outpatient [id number] Randee 03/03 [facility] /2020 [facility] [...]
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
--- OUTSIDE RECORDS SUMMARY | 2020-06-23 07:00 | XMS REPORT | Continuity of Care Document ---
:1945 Author Organization [facility] t Address [address] [place] [address] Care Team Providers Name Role Phone JACQUIE Attending Clinician Unavailable Jacquie GAMBLE Attending Clinician Enrique Avila MD Attending Clinician Zuri GAMBLE, Wong Attending Clinician [phone] Chana GAMBLE, Vivian Attending Clinician Tima AGMBLE, Raymond Attending Clinician Bib Mi Attending Clinician VISIT, EHS ENGINEER ECHO Attending Clinician Unavailable JACQUIE Admitting Clinician Unavailable Payers Payer Name Policy Type Policy Effective Date Expiration Date Sour ce Number [facility] [id number] [facility] - MEDICARE MGD 00:00:00 - [facility] MEDICARE [id number]/08/06 020-Present Problems Condition Condition Condition Status Onset Resolution [...] Emmie kes - anemia anemia 00:00: Medical Center ASHLY (acute ASHLY (acute Disease Active [facility] kidney kidney 6-14 [facility] - injury) injury) 00:00: Medical 00 Center GIB GIB Disease Active [facility] ([facility]astroint (gastroint 6-13 Emmie kes - estinal estinal 00:00: Medical bleeding) bleeding) 00 Cent er Essential Essential Disease Active [facility] hypertensi hypertensi 6-13 Emmie kes - on on 00:00: Medical 00 [place] 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 M emoria a 00:26:45 l (disorder) Shaun n Bradycardi a (disorder) Active Problem 09/06/2019 [facility] Group Hypertensi Problem Active 2019-09-06 M emoria ve 00:26:45 l disorder, [place] systemic Hypertensi arterial ve (disorder) disorder, systemic arterial (disorder) Active Problem 09/06/2019 Medical Group Obesity Problem Active 2019-09-06 León tj (disorder) 00:26:45 l Obesity Santino (disorder) Active Problem 09/06/2019 Medical Group 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 Social History Social Habit Start Date Stop Date Quantity Comments Source History [facility] - Alcohol Std Drinks [facility] - Alcohol Binge Medical Sure[facility]ha [facility] Sex Assigned At [facility] Tobacco use and 2020-01-18 2020-01-18 Never used [facility] kes - exposure 00:00:00 00:00:00 [facility] Alcohol intake 2020-01-18 2020-01-18 [facility]00 non-drinker of Medical Ce nter alcohol (finding) History [facility] 2020-01-17 2020-01-17 [address] [facility] - Alcohol Frequency 00:00:00 00:00:00 [facility] Smoking Status Start Date Stop Date Source Never smoker [facility] edical Center Medications Ordered Filled Start Stop Current Ordering Indication Dosage Frequency Signature Comments Components Source Medication Medication Date Date Medication? Clinician (SIG) Name Name flecainide Yes 100mg Q.5D Take [address] (TAMB[facility]) 6-16 mg by [facility] - 100 MG 09:53: mouth 2 Medical tablet 22 (two) Center times daily. amLODIPine 2020-0 Yes [...] Center tablet daily for 30 days. flecainide 2018- Yes 100 mg = 1 M emoria 100 mg oral 8-01 tab, PO, l tablet 15:37: Q12H, # [place] 09 180 tab, 3 Refill(s), Pharmacy: [facility] amLODIPine 2018-0 Yes 5 mg = 1 Mem oria 5 mg oral 8-01 tab, PO, l tablet 15:37: BID, # 60 Shaun n 07 tab, 11 Refill(s), Pharmacy: [facility] amLODIPine 2018-0 No 5 mg = 1 Mem oria 5 mg oral 1-21 tab, PO, l tablet 22:16: BID, # 60 Shaun n 21 tab, 11 Refill(s), Pharmacy: [facility] 80 flecainide 2017- Yes 100 mg = 1 M emoria 100 mg oral 1-01 tab, PO, l tablet 16:47: Q12H, # Santino 00 180 tab, 3 Refill(s), Pharmacy: [facility] amLODIPine Yes 5 mg = 1 Mem oria 5 mg oral 7-12 tab, PO, l tablet 15:46: BID, # 30 Shaun n 41 tab, 11 Refill(s), Pharmacy: [facility] 808 flecainide 2018-0 Yes 50 mg = 1 Me moria 50 mg oral 7-12 tab, PO, l tablet 15:46: Q12H, # 60 Celina nn 00 tab, 5 Refill(s), Pharmacy: [facility] 808 Vital Signs Vital Name Observation Time Observation Value Comments Source Systolic blood 2020-01-19 07:00:00 122 mm[Hg] [facility] Diastolic blood 2020-01-19 07:00:00 64 mm[Hg] [facility] Heart rate 2020-01-19 07:00:00 74 /min [facility] Body temperature 2020-01-19 07:00:00 36.28 [facility] Respiratory rate 2020-01-19 07:00:00 18 /min [facility] Body weight 2020-01-19 07:00:00 95.7 kg [facility] BMI 2020-01-19 07:00:00 28.61 kg/m2 [facility] Oxygen saturation in 2020-01-19 07:00:00 99 /min [facility] Arterial blood by Medical Ce nter Pulse oximetry Body height 2020-01-17 00:00:00 182.9 cm [facility] Systolic (mm Hg) 2019-09-03 16:13:00 León rial [place] Diastolic (mm Hg) 2019-09-03 16:13:00 Mem orial [place] Heart Rate 2019-09-03 16:13:00 [facility] [place] Height 2019-09-03 16:13:00 187.96 cm [facility] [place] Weight 2019-09-03 16:13:00 [facility] [place] BMI Calculated 2019-09-03 16:13:00 Memori al [place] Weight 2019-03-05 14:43:00 [facility] [place] Height 2019-03-05 14:43:00 187.96 cm [facility] [place] BMI Calculated 2019-03-05 14:43:00 Memori al [place] Heart Rate 2019-03-05 14:43:00 [facility] [place] Systolic (mm Hg) 2019-03-05 14:43:00 León rial [place] Diastolic (mm Hg) 2019-03-05 14:43:00 Mem orial [place] Systolic (mm Hg) 2018-09-05 17:41:00 León rial [place] Diastolic (mm Hg) 2018-09-05 17:41:00 Mem orial [place] Heart Rate 2018-09-05 17:41:00 [facility] [place] Height 2018-09-05 17:41:00 187.96 cm [facility] [place] Weight 2018-09-05 17:41:00 [facility] [place] BMI Calculated 2018-09-05 17:41:00 Memori al [place] BMI Calculated 2018-06-05 16:04:00 Memori al [place] Height 2018-06-05 16:04:00 185.42 cm [facility] [place] Weight 2018-06-05 16:04:00 [facility] [place] Systolic (mm Hg) 2018-06-05 16:04:00 León rial [place] Diastolic (mm Hg) 2018-06-05 16:04:00 Mem orial [place] Heart Rate 2018-06-05 16:04:00 [facility] [place] BMI Calculated 2018-02-13 15:20:00 Memori al [place] Weight 2018-02-13 15:20:00 [facility] [place] Systolic (mm Hg) 2018-02-13 15:20:00 León rial [place] Diastolic (mm Hg) 2018-02-13 15:20:00 Mem orial [place] Heart Rate 2018-02-13 15:20:00 [facility] [place] Height 2018-02-13 15:20:00 185.42 cm [facility] [place] Height 2017-12-25 15:51:00 185.42 cm [facility] [place] BMI Calculated 2017-12-25 15:51:00 Memori al [place] Weight 2017-12-25 15:51:00 [facility] [place] Systolic (mm Hg) 2017-12-25 15:51:00 León rial [place] Diastolic (mm Hg) 2017-12-25 15:51:00 Mem orial [place] Heart Rate 2017-12-25 15:51:00 [facility] [place] Height 2017-07-03 17:24:00 185.42 cm [facility] [place] Weight 2017-07-03 17:24:00 [facility] [place] Systolic (mm Hg) 2017-07-03 17:24:00 León De Diastolic (mm Hg) 2017-07-03 17:24:00 Rene kenrick De BMI Calculated 2017-07-03 17:24:00 Reneleonardo Shuklaann Heart Rate 2017-07-03 17:24:00 [facility] Procedures Procedure Date / Time Performed Performing Clinician Sour e SARS-COV2/RT-PCR ([facility] & 2020-02-12 11:50:00 [facility] - REF LABS) Medical Center REPORT OF PROCEDURE - 2020-01-20 13:53:10 Provider, Default [facility] ENDOSCOPY SCAN [facility] RHYTHM STRIP - SCAN 2020-01-20 13:53:05 Provider, Default [facility] TRANSFUSION SERVICE 2020-01-19 18:10:35 Provider, Default [facility] REPORT - [facility] BASIC METABOLIC PANEL (7) 2020-01-19 03:55:00 MELISSA Dhillon I [facility] MAGNESIUM 2020-01-19 03:55[facility] 2020-01-19 03:55:00 [facility] CBC W/PLT COUNT & AUTO 2020-01-19 03:55:00 Jacquie [facility] S t [facility] PREPARE LEUKO-REDUCED RBC 2020-01-18 23:54:00 MELISSA Dhillon I [facility] TRANSFUSION SERVICE 2020-01-18 18:00:14 Provider, Default [facility] VENOUS DOPPLER ARM, RIGHT 2020-01-18 16:00:00 Gadicherla, Thao [facility] BASIC METABOLIC PANEL (7) 2020-01-18 04:48:00 MELISSA Dhillon I [facility] MAGNESIUM 2020-01-18 04:48:00 [facility]/INR 2020-01-18 04:48:00 [facility] CBC W/PLT COUNT & AUTO 2020-01-18 04:48:00 Murrey-Ittmann, [facility] REPORT OF PROCEDURE - 2020-01-17 17:18:[address] [facility] ENDOSCOPY URL [facility] TISSUE EXAM 2020-01-17 17:03:00 David Alfred [facility] UPPER 2020-01-17 13:03:[address] [facility] ENDOSCOPY,SCLEROTHERAPY [facility] UPPER ENDOSCOPY,BIOPSY 2020-01-17 13:03:00 David Alfred [facility] CBC W/PLT COUNT & AUTO 2020-01-17 12:11:00 Van Cope [facility] TRANSFUSE LEUKO-REDUCED 2020-01-17 08:35:27 [facility] RED BLOOD CELLS [facility] TRANSFUSE LEUKO-REDUCED 2020-01-17 06:06:38 [facility]LL[facility] HEMOGLOBIN AND HEMATOCRIT 2020-01-17 05:38:00 [facility] PROTHROMBIN TIME/INR 2020-01-17 03:16:00 [facility] HEMOGLOBIN AND HEMATOCRIT 2020-01-17 03:16:00 Jacquie I [facility] TRANSFUSE LEUKO-REDUCED 2020-01-17 02:57:49 [facility] RED BLOOD CELLS [facility] ABORH, MANUAL 2020-01-17 01:27:00 Marla Berger [facility] VITAMIN B12 AND FOLATE 2020-01-17 01:26:00 [facility] IRON, TIBC, % SAT. 2020-01-17 01:26:00 [facility] 2020-01-17 01:26:00 [facility] HAPTOGLOBIN 2020-01-17 01:26:00 [facility] BASIC METABOLIC PANEL (7) 2020-01-17 00:57:00 [facility] I [facility] MAGNESIUM 2020-01-17 00:57:00 [facility] HEPATIC FUNCTION PANEL 2020-01-17 00:57:00 [facility] PT/APTT 2020-01-17 00:57:00 [facility] RETICULOCYTE COUNT 2020-01-17 00:57:00 [facility] LACTATE DEHYDROGENASE 2020-01-17 00:57:00 [facility]) [facility] TYPE AND SCREEN, 2020-01-17 00:57:00 [facility] s - AUTOMATED [facility] CBC W/PLT COUNT & AUTO 2020-01-17 00:57:00 [facility] DIFFERENTIAL [facility] SARS-COV2/RT-PCR ([facility] & 2020-01-17 00:37:00 [facility] REF LABS) [facility] ECG 12-LEAD 2020-01-17 00:08:25 [facility] Plan of Care Planned Activity Planned Date Details Comments Source Future Scheduled 2020-04-05 INFLUENZA VACCINE (#1) [facility] Test 00:00:00 [code = INFLUENZA Medical Ce nter VACCINE (#1)] Future Scheduled 2019-08-05 Medicare IPPE (WELCOME [facility] - Test 00:00:00 TO MEDICARE) [code = Medical Center Medicare IPPE (WELCOME TO MEDICARE)] Future Scheduled 2009 PNEUMOCOCCAL 65+ YRS [facility] - Test 00:00:00 (1 of 1 - Medical Center [id number] PCV13) [code = PNEUMOCOCCAL 65+ YRS (1 of 1 - [id number] PCV13)] Future Scheduled 1945 Screening for [facility] Joey es - Test 00:00:00 malignant neoplasm of [facility] Center colon (procedure) [code = 330257369] Encounters Start End Encounter Admission Attending Care Care Encounter Source Date/Time Date/Time Type Type Clinicians Facility Department ID 2019-09-03 2019-09-03 Outpatient [facility], [facility] [id number] 10:00:00 23:59:59 Abraham Mccartney 16 2019-03-05 2019-03-05 Outpatient [facility]ot, [facility] [id number] 10:00:00 23:59:59 Abraham Mccartney 15 2018-09-05 2018-09-05 Outpatient [facility]ot, [facility] [id number] 11:15:00 23:59:59 Abraham Mccartney 14 2018-09-05 2018-09-05 Outpatient Hiwot, [facility] [id number] 11:15:00 23:59:59 Abraham Mccartney 14 2018-09-05 2018-09-05 Outpatient VISIT, [facility] [id number] 10:45:00 23:59:59 NURSE EHS ENGINEER 13 SENTHIL 2018-09-05 2018-09-05 Outpatient VISIT, [facility] [id number] 10:45:00 23:59:59 NURSE EHS ENGINEER 13 ECHO 2018-06-05 2018-06-05 Outpatient Hiwot, [facility] [id number] 11:00:00 23:59:59 Abraham Mccartney 12 2018-02-13 2018-02-13 Outpatient Hiwot, [facility] [id number] 10:45:00 23:59:59 Abraham Mccartney 11 2018-02-13 2018-02-13 Outpatient VISIT, [facility] [id number] 10:00:00 23:59:59 NURSE EHS ENGINEER 10 ECHO 2017-12-25 2017-12-25 Outpatient Hiwot, [facility] [id number] 11:00:00 23:59:59 Abraham Mccartney 09 2017-08-16 2017-08-17 Outpatient [facility] [id number] 15:30:00 23:59:59 00 2017-08-16 2017-08-17 Outpatient [facility] [id number] 15:30:00 23:59:59 00 2017-07-03 2017-07-03 Outpatient Hiwot, [facility] [id number] 12:00:00 23:59:59 Abraham Mccartney 08 2017-07-03 2017-07-03 Outpatient Hiwot, [facility] [id number] 11:30:00 23:59:59 Abraham Mccartney 07 Results Test Description Test Time Test Comments Results Result Comments Source SARS-CoV2/RT-PCR ([facility] & Ref Labs) 2020-02-13 11:36:00 Test Item Value Reference Range Interpretation Comme nts SARS-COV2/RT-PCR (test code = Not Detected Not Detected, Negative 40375-0) SARS-COV-2 [facility] (test code = 08202-2) BEAR (test code = BEAR) Negative results [...] of the Act. Fact Sheet for Healthcare Providers:https://www.Auth0/Documents/Xpert%20Xpress %20SARS%20CoV-2/Fact%20Sheets /302-1632%24KTMP-YLA-1%20HEAL THCARE%20PROVIDERS%20FACT%20S HEET.pdf Fact Sheet for Healthcare Patients:https://www.[employer]/Documents/Xpert%20Xpress% 20SARS%20CoV-2/Fact%20Sheets/ 3023801%48SRBM-JFV-7%20PATIE NT%20FACT%20SHEET.pdf Performing Laboratory:[facility] [place] [address] [facility] & REF LABS)2020-02-13 11:36:00 Test Item Value Reference Range Interpretation Comments SARS-COV2/RT-PCR (test Not Detected Not Detected, Negative code = 2555636) SARS-COV-2 PERFORMING LAB [facility] (test code = 2809230) Negative results do not preclude SARS-CoV-2 infection [...] of the Act.Fact Sheet for Healthcare Pro viders:https://www.[employer]/Documents/Xpert%20Xpress%20SARS%20CoV-2/Fact%20Sh eets/3023802%60TXUA-KFV-8%20HEALTHCARE%20PROVIDERS%20FACT%20SHEET.pdfFact Sheet for Healthcare Patients:https://www.[employer]/Documents/Xpert%20Xpress%20SARS%20CoV-2/Fact%20Sheets/3023801%20SARS-COV -2%20PATIENT%20FACT%20SHEET.pdfPerforming Laboratory:[facility], [place] [address]Ieshak [id number] 10:48:00 Test Item Value Reference Range Interpretation Comments Case Report (test code Surgical Pathology = 104) Report Case: [id number] Authorizing Provider: David Alfred, Collected: 01/17/2020 05:03 PM Ordering Location: [address] Received: 01/18/2020 09:09 AM Service Pathologist: Wayne Mcadams MD Specimen: Biopsy, Gastric, Random gastric bx ADDENDUM (test code = m5lesUEyNWXkaBXtUwWgLA 3381) KhOXWku8dvVPJclQGsYrIc MzNcZnRuYmpcdWMxXGRlZm Xew0kdt972dFAxr0npFPUi HnU9fMJnQCOjfWKcJ501j2 uls6abkbEstUL2PNMpDXR3 SGoabvSnrdY0DZfhtMJwGf U7JKcrwbSzNGcaryDfshWt Xei5VXGmM791OZF6aTghy0 syPQJ2YWYoCAAsVlHbUx0a wDAdN783CFYmWMFCKTHftC k0KTXhmqXarsHgnLASb379 F179o4ckORGkmqOjjBwJmj cyl9vgC643HQUhrRLhaiVv MkMnMADcsFCbiZN2QXNbSB 6vfuihBHftDVayONLowlL1 FREpzSEzO2EsGTVxTN7hks swMUK3EFgjPAJxHGL9DvSa KZFhx9Tqdmw5VzEqpo7mlq 75EJH9e7OjaBlqZBJ3LNB4 DgBxWj8mhSEnZEDwLY5kBn TbgVTrRGJtkq64tYvdALqj yeHnxR5kHoApPMOwgYCjHN HzIU9glQGuCGCzdA9wgoxw XHBnYnJkcmhlYWRccGdicm YrJo8eoByvHNL2XVrwD1xb iX8nRdY1KDbtE9tihG0mWC l0DDvqtDI2HSYgdI9eGD1i jyjji5enCYxqZCezLIKzwv O1czY0TMNttFUgS6RrkR6o TZGaFY7bgpfcn7vqWGI4VP vrNTDjNYV5JcFyMUWju6Oj kxe7SeHul6BorJDrNMxsW5 5wq496MVTyokIfG5zinBZa egehlMFplxrlCLwfecF9QU FsXHBsYWluXGYwXGZzMjBc bGFuZzEwMzNcaGljaFxmMF rbGiQqGZTxOTwrS6mlVxWg XtKbEOHClW89ex2qnMYlnp Bca9QhmWZrdXWnYaOfmTVv EZCurfIlvb6xFJUvluHwyU 1vqwBJTQQukzMIB9IWAOdK IO3amFPfiA== DIAGNOSIS (test code = i8jxiWFhFGGwq9yaMVSnrS 3220) FuZzEwMzNcZnRuYmpcdWMx ZSaukvXrWTyst4WkL8SyXn AwMFxhbnNpXGRlZmxhbmcx GKWjOVI8qgBrWZTmOWtjXP ExTWdrCl6npDSbvDuaAhCd URAjk4tnlaHKrrzhsOk0l2 ycQGGjYoF0fOKyZVezV8xn kmBlhGGtZGNeRYh4hV60WU OlvP1kpPFmHSxoyhQsSyI5 HVqjJEYqLqV7URYgsKHcKR VzF0gtUFKwQUvsOXOkFYvv mSRcHBH3bHttp7U5wDNqlE PovJzaFlDmMpQpDVBXn6Xu LVx1iYyrE9WbPANlLbA1dR QgUGFyYWdyYXBoIEZvbnQ7 gL54ECohsyS6fOHfg1Vfi8 1vw905tD6wvEHzSYB1BQQf MOYvzRUiDZRrMGS3DSZuhG FsX8q7TaBkfMWfP2H2RcAf sUNmL8H1SoNvlZArS1X4Lx IyqTGgTRSniGOwPz3wzGYi yUXzbg5ltj80TPX0w9ZnkO ewPUZ1IKC8TxEhUw5qsFCp VFHeTQ7pYsWvjWRlBUCbrf 60cBflEOvjpzYutM5aDsAl HKHfrOPyAUUvJA0umXIpHP IutH2bahcvUXAtZuKiabjv JUCjuDbpeuOnEa7ruCzbQU P4TTfaD1qouZ6eWgL9RVhr I6vweK2kYWy0QTlogEH0IP YqcI8gJN2ocxuxm1yzUaXv JK2pjkyno1owToPuGF9fur v0x7tgLvNnDC5mrnbvd7of NzIwXGhlYWRlcnkwXGZvb3 ZosaegRLYjp0EyB8LxlYnb E94urLccP59rQYJbrCsazY 1weAjbhQ1cUlSoYmCfBIui bFxwbGFpblxmMVxmczIwXG ssesnyFVRjMWejG1kxViCj CBNulYnxCJyui1ThLVEyWH ZzMjAgUEFSVCBBIFJBTkRP EPYINOCOAdoMMIZOU0BAZV pccGFyIEFOVFJBTCBBTkQg O9oCMjTYJrHOAAUII0WtO0 zZIOMHU2GKXqGyW6mYS55P QyBHQVNUUklUSVMuXHBhci WMHFpKNIoJFKZUL6EuRK0U XIYJWN1FTPMREICAGNbUF8 iJAUWKCUBZWZMELEErHL3G IElOVkFTSVZFIENBUkNJTk 2OVI3hoBXiNRxZPdATTM6j B6FOFsUZTHQIFIxAOVHINt LEDPaAS30ZFDNFSCQzVFVr TkVHQVRJVkUuXHBhciBJTU 0XKq0ZDRLCNtETW9GpJOWT SUNPQkFDVEVSIElTIFBFTk RJTkcsIEFEREVORFVNIFJF PT7LDOOHFtWRN1xOS9izBV Fqkc52CKM4RaFab2F0ECX8 OBCrLHLmq5xoPJDdwPNiXc EwMzNcZnRuYmpcdWMxXGRl VkJtn6azi814pBHzu9oqSK HyOlD3eMWrRYLskIBoX820 MFGdCLajr8gpk7NeQRLxuH Axw5J3HFETrcvidLz1zVia Z97vp7Z8KwvuT1naVTDrEE YcX1OtND5bIYBrAdg9MKK6 OLB2HQCxXPBaA7NeCN0zHN PtoCYtRPv5k1heyNcrNRYi RIM4l3yfDKmyvgBdNC6gjd 2ohIu9d5iokfNxFNKtXDNx pBCWOIByD8OcgYgiBl9uqP g7nUarAvkfXIF7Upn4HM1u or10rka6mKohHQZfpxusWg K7PBeoNCZzoybtFTm5TRdd MDAkvKR2DEXznDAiC2QqLS JoWE4tczj7MOW8MFjxSTCj OcQ5JPFunONvPRKyoHuiKZ fut579OKV3FaXvKE6qW3Rm h9V0xB5mnNQsELPfvVNtRi UwLCOvuy4nlRLsCKxnx9Bj OBY6jtQ3lTNzqUNbWTZkGs W0MQukLU7nuf88KGJvIHL6 ft9blXVxyUmqooYhiQFjEN dcQ9RbLPRyx205UUZgQ0Qe YWPau1I1bjDdPxGuKXKqxQ P1huA3INVzLW0wmhxra4ee GHfeEHbwRNIzquA9uuB8JA YjeOSdW4TmkD8yYNHwQJ7r weyjv8gfDYY5DZecFEOyFF P5PfOgWGZjt6Ttyll7LhGj a7EkoCNhUFdsX34xm470IZ YfrjIcV6bvvJFosdwivHPh tufbLParvgY6JJVsKAcgxn stTONeCMjeS3pnQfSrRRHw nKqhDPltt0BqASUwMCEqIj DbpWYrKXFqZti3QCUijUFd QDSsDwXpA1oiyojhApJWID Zgb2yaB9jopBDIqOAvT1Rk UGhvbmUgTGluZTogODMyLT D6ZO82AYqsMJXati26 CPT Code(s) (test code l4dnwTJrJDNfrLStHbRvKI = 3353) TmOPFsy5inHHJupSHcHiCe MzNcZnRuYmpcdWMxXGRlZm Kbr2thj724uVDpy4nnKEYq EoB5eRAfVIOdsAAuP922t3 kxj6nzaeUnuAY5DATeBVR9 WRctizDwbgO9HAyreGBhLn I5HDwdwbDaQLsgyqHxvjRq Hcp6BMUiQ720KWX9dAuan4 lzEZM3NGEeXMOtYsMaXz1b gNLwC299ZBCoRDVXNLKpnV h2IVHxcmEvqnYjrMODf003 E733g1rhPQLszqJqqByInl zvo5wmJ988IYJbvCTgnqOv JdQcAUZggSHvcLT7MARlZZ 4iyihrNnUjZR6mvjgoLhZh PV5toij3YvIkDB1jdnsnSr DiVPioIGAbakduNLLft3Ve jplqYI8pK0Qar4P6nD6bpF RkZNEopDQzCjJwAVPaus5m hVRxDIexw0OoADE7luJ1tP DlgSOrUMHiZI18Sxdtm9Ha VpxlZRC6ELYcwcIzi7Pys4 owPvFgphMkN0svC9QvLAYu WIReBNCzXfXfmnJjv0Ase3 CubQVkpDr7t5snSJYrXPOo uBnrl6lcPMZ2KZExE4R7sD Pjs4wjIEplAVOuxVE3ixjj CSjgTCAcguF4ozmsLXzbSM QsqOP6xrzzGAbeLTQiJgI4 czmrZKfpVWXaLMT8NEmbw4 55VGG6OTyqEduvBXiwFQAh bmNvbnRccGduZGVjXHBsYW luXHBsYWluXGYwXGZzMjRc sNfcvLvykN0hAuChCxOlNL jbED4xWAMyE7lxuMGqTLDx QULlQ4deOjHieN2kqBatFA vwvcJrHJd3DtJ5KRO8TPHb MiwgODgzNDJccGFyfQ== CLINICAL HISTORY (test f0rwvAXcZZRlcFDfXhGgTX code = 3354) WwTUGgj6fyHSEhiOWhAhXq MzNcZnRuYmpcdWMxXGRlZm Dra0tjk024hWZky8ymCHJn QyQ4jILrWZNhqHFzD388UR TmQCyoj8iis9AvQJCdmELj o1F3YKCRrhxgoDf9cYksX3 1oc9J1YxwfE8zsJBEvFZFf F9GeBT2qEAMcNke8PMO7ZE X6MIItQLRuM2SlAB2cUJPv eKLsHIf3j5kajKhsMDNnXB C1j3nqGMjsuhXsPB2mhc1c jKb6p3ktnnShWWUvEUCunZ NPECSvD4LaqDssTs9uiMb8 rGqhGwouMUD3Dan9AO6ihe 66iet5eGulBSWeikngKqP5 UBlvUYZxzkawXNh8ZTfxAP JnbDcyMFxtYXJncjcyMFxt YXJndDcyMFxtYXJnYjcyMF ipLQWvUDU3GXjvs326XVE9 QVsyp4wib3rxgLKvHrh6OW EkWzHxXbcyGJtiz3Wdy7vm MVKylq0rHLM8sRNimYgux8 Z8jWNqGUKydJDdnxHeEXBj DjP8PWvpVN2qww61BFJvAW Q4lq5cuEVarMjeriOwsNNf NMazB0IePRWue391DSViH6 XwABYzq7W4awErVcUxQFWa kEB3ypC8LIVaQCv8pLOpsj Z5bqVqlYQhL8nhdR25YvDv aAZmA3AemR54FnTeeTKnU2 WehE77GbDtnCJgX3WziA09 PdFqvJBwLTWslAMoAa8yaS HriHVma1WmtDThHVjqS46q x068DJHlapGcP1chwPIvjl jocZMnkuocZVawrpL9OYg2 cnBhclxxbFxwbGFpblxmMV xmczIwXGxhbmcxMDMzXGhp Z5mvDaXcTEDouQjuRNtie4 VgXHTgWBSwNfAjZ3ogJwuB RURccGFyfQ== SPECIMEN SOURCE (test n8pneNYaVPGgxFIbMkSyIY code = 3377) UfJCWvv2awGKYacXOsWkOj MzNcZnRuYmpcdWMxXGRlZm Vrp4ieu807yBBct3unBWMq TxQ6fRPfBJTfkFUvM729v1 hps9bgogPduXM4OWOuQOQ9 HOswliHlhjV7VWzlsIFlUe E2GUmtxbXsXUkujzJsvsXv Mmo2ZTXpG605YJA2yInzw2 wnXXN6JCXyQUWqSqEvOt3c zFPfE960FCZcPUKDKEBwaK v0GFPurgOlqnDeyIIAu231 D308b7kjLXJgamDxwWsEui ovc6vhT823OFDuqPSvtgTs WyTiRPJriRTjyDA4GXQyQO 6avjyfIdHiCO3udiwrSlAf QF7hgue3AwDrBC7pvnanUc XcSNcxEEFmyivaJWDvo5Nw piduNM2nX3Lmw9B6pY7dpR DdMXMspAUpHcLhVODlms6a mSNrSUlwk0GmCHW0lxO9zF HyuTCrCYOwNX63Qmykz5Af XiwvAMN1TWFsdeDky6Edo0 uiDvPnupKiM9ceT1KrVNGj IRDsQXAwVoDwjtLbs1Ohz2 TqqBBvuKy8x8fcMFOzHLNl oKres4lyXCX5TABrD7X7xA Ytm3qwAJrpACYqdIK7ixyt DIogHBMhkqD5kamaKXjdUU FunJS0iyxvJEngQWVzZgX8 ciomICzfFDTwDKA6LStah9 20DJO1AUdgJvnqWLtwEJDi bmNvbnRccGduZGVjXHBsYW luXHBsYWluXGYwXGZzMjRc aPiabHpifQ3zJrPiQoQxUU utTM0bXGTrQ6lxqHGlYMVk BUNwL2ulMiEsvR0bqPuqGF uiojErVPytm6SmsUNdQgjs uOU3YIQsox7= GROSS DESCRIPTION (test z1qsbDKsSGXvaVNbOgKhCU code = 3366) BiRKSbr0nbWDXdwSIwZvIe MzNcZnRuYmpcdWMxXGRlZm Nbk2wqs372dEGrx1qzADDr YrF9mIOdEWShhXAxI704t5 qpk2xvdhRenIB4FFXsFXR4 VNbkthBkbnS2PAizoMEnMz Q1GWcrojJvSNbwwlJrwzAp Nuz3BEToY273FIY5vCmbg4 nrMWC1QVNzYILcWuMjSm0j lWUfD358LORxMMAGZEFmrR h9WBPkalVkifAmwXGVn259 H958s3tgNUUgqqFbiDyTjg pet1knV405IXBknSUgbfHa KoWxXTDwkTIasZQ2XDFaGL 6ifwvjCiVkYN2qcdfaRxIy JL8klao9QrFyZS8oyanaRh VaIBzvKBLaymxnJQEtp1Zr imeuKF8sS7Red0K3nD5pvO IgOJXpyLJlArSiSCBebr7v fXPaPMpqu1VtIVI9phY4aM NoqVMiWBKpFX04Ywsjl8Qy QxuxDSJ6AJAmeqAzh8Lmb1 fkLeLxnjVuY3uaE1JwOZQl PSNdDDMdMvSgnuKtu5Bdg9 MnlSHmfIw2g7gxZPEkVUZd gMxcq2jsWGK5NGQeT7J7yK Gcw2vpODebVVLwuFB3yyab VWcuZKGmmjY3klvaUNizHW UxkHJ0dneiHNjyGBGwOxC0 lvztPSivORZnPXM6MTdpt4 08VEG4UCssZkuiXWfwFOQh bmNvbnRccGduZGVjXHBsYW luXHBsYWluXGYwXGZzMjRc mQawmEdwxQ5lJlQzBgDcPZ zzCI0nXXYeW1urbSJeTZCd VUBlY2jrTaIheM7muHvkST lkdsHrYLNpN4AyxjIqFHsy SHMper5iwOjdRMuuFlMmMR Xan8r6mAY7cNBsrZV0nJKo jRxhKF9koYEiNYIgJ6Yon3 wblxDfbS0bGIBrFX2rFIMx PIN1oiouJUVpu3XojWXcVQ JlIDMgdGFuLXBpbmsgdGlz u0UrXWBuAQtgEM16mkFmJA QbzTCoqjksvDEgyQ8jTR1e PXZvDHxxVEqnCZF5JOM0UG EyrRDzc8ieudH3xLjpgULs ftNdOpfxiCCiGFHzYY0qQZ L7Os7saWCeYMKhcfZ8w9Qf IGluIEExLlxwYXJccGFyIF EsnZVhIWTdD7LagMruwnae TQZwFMRTF6UlX08ukZGjsF == MICROSCOPIC DESCRIPTION l7qjlJXiCEJrtUPgCxStYJ (test code = 3371) TmFHTey4zfEDKtsRWhBsPv MzNcZnRuYmpcdWMxXGRlZm Iso3kln587hSOnk8bkJDFt OhK7aBObXFAjuMOpY312b3 lxc4aibzFwlAB4UVCbMAD2 DMecerLfzyU9GNfhiHUfPx M9VMryjxNlJRccwoJcmfJz Jks6XLCgB344OWO9tRiuo0 rnKTK8RQAdGZRfAvHlAr0u eBNtB016HLBoPDYGIZJanF f7FLNxlqLhzoBjdFFIf459 W585d2nuBUFswgRboQxAkc chb9yqC380FKRpcWVhkvCt UtRfIWFnaSIvcPF2TGZzAX 3hyojsGaCmIV7uzheiSsMb UI6smzi4YnYcOE7ykbxgGt BqDWetRVIfpueaRNGgl7Pk ayonEA2zT1Tzp1U3wE5uxO ExAYOklGEiFqJtSSPqng3d oGUtLPhaj6VrIGX8ddU5vD JevNAlVIYwMC12Vpirr5Os AnhrIUK6EAZhhrVkp3Bvi8 exOtQierDbG4xsC5BrHBBw IMXwYQZxQtDwezWge1Eno9 SbzLBcaPy3t9ycNMQzLAAd tYoqq4bhJZL3TJJdO1E3aB Upc5upEVtlKWZdfTN6gtlk XWilBBRzimF4gbwhNQscUB GmeFN1cymkIMfdBOVrErH6 muklLAjfWYTlTFT5RByry1 38USW2INprKxbmRIcrIJOr bmNvbnRccGduZGVjXHBsYW luXHBsYWluXGYwXGZzMjRc tRalhKjkpP6nSdTeEpUwWR ulEA3jPHKcY8kmlJXbJCEc FJUpO5ipYgZymW4cdOnrJH znhwAkYTSQDfCLJa0LBQ0b cGFyfQ== SPECIAL STUDIES (test i1tbkPXmKAFurPOoNfDtEP code = 3376) UdDDTpx4aoWWHqbQCdMwCs MzNcZnRuYmpcdWMxXGRlZm Xnr8gia059zJPkk7fyIGRm BiW6rVSnJQSkrYIfV223PI YlTGfip5ase3FbPKSbwQSa r3T6RVWIXEyiIbGkT578TV MySImpe4izf3LjGMZlvEMx w0I3OLZVrhnvhOh4tLsiS1 0ml1U8UrauL4fbQLOpLGYr M2WrUM9gIMCuAdo6WFQ4VI D3YMBeIOCjZ7BuHA4sETQm mBBpDZr2z8mpdAetUTSdVD A2o4elXFpzdsO3CJ5rmk4s kUz1m2jadfUqSXAlAHCfhJ RASVNoB1BtfYayDs1utKb9 m9xpNqhsqaX1nRVgObNeXf MyMFxsaTBccmkwIENvUGF0 yTQPTVt5O881m4vaWBEnrh QovGpOnoydz0dqK021KVDp cGVydzEyMjQwXHBhcGVyaD S6UTMgET9bjhhjBcVvOS8n uiqpVnQfXA4bxhz9JkTmVM 1hcmdiNzIwXGhlYWRlcnkw NCRpx3HjpikrNP7nW8Uuy9 Y0kH2jhOEiXCKrsMMwVkNn ZYJswy7gfJAkXWdvAKP1EU PqgiAut6Xsb1inPqEfmaTc F2leO0GwBIPrFHCeUFHvFq ErecKmj1Kuf7BidAVlyMh3 m5tvELLlIYLxmKaft7qcJZ S0RCCfW0U2mLRmb8qfSIwx OGGmxAC5bkgoZCgaLWEbgu C0aqusDYbeIULkpSM6qsuo BMrkIMVaGtZ8bnkoKCcuAY RwBFR8XDugf500CBA3MPaw YmtwYWdlXHBnbmNvbnRccG duZGVjXHBsYWluXHBsYWlu XGYwXGZzMjRccWxccGxhaW 3lIaFsQaEeSdfjWY4iKRHb M8zgyKHcOEDmEBMxV1iaUd GqjT0sfWmyYWwpJoZlTiCr RxZMjTVljC82HTPkrmX5NI Xen54ca9TzmIcudcDyNJAa CIylU8q2NUZkOOOdCCD2x5 Oym7WcuI0vcD2ayNiuuL5m iPYksWN3ziczz0Umz1KrP6 lhbCBzdGFpbnMuXHBsYWlu XGYxXGZzMjJcbGFuZzEwMz NcaGljaFxmMVxkYmNoXGYx QOqtM2kfHpOjS0KeUQLdZr DthWJpK6irfSDoZKEwFPge XGYxXGZzMjJcbGFuZzEwMz NcaGljaFxmMVxkYmNoXGYx IAztH3ohXsJtV4VjABBwTd GbPxcYC3mpTCRkOHeTGdFX PW7qS2RBKqHEZJMALMpYK7 5IHCBEKZIsJC5ORA9MF5HK NN9zNGOlGMutGBZrFBUdOp JcbGFuZzEwMzNcaGljaFxm XReyLoOqCVKsCYfmV0huRz EfP6GyOTCaCrXyeNFcW9jm cGFyXHBsYWluXGYxXGZzMj JcbGFuZzEwMzNcaGljaFxm PJayGuZwDGFkLBrvO3aeDb FfP7OnORKgMuXjD63dkWXj bCBTbGlkZXMgRXhhbWluZW A0VFFKmx5fh8DoGQTzce63 kgYgx1RqxWj0HCKoj872nb 9jivT4NVJiVEB1HPm7MQZv IKLpzN4vTzD5yUGcPDAiRB L0UXB1HRHvz9J8QQ5kTBZu HHTnVCYihpBel9wbo5srXC KzPTB1kwGuxY8fH9AwTJUi u9KkqExjYJPhzYonszYlOH HkjGGtNGIxgE26NXHnkUKi aTKsGKLuZBP4ABmpjH1dDv JIsjTycl1gkORtc1ZwiNa6 ZSBhbmQgbmVnYXRpdmUgY2 9baMSkgQYww2hekyZxpuDy vBHqrKBbWXNvGCH6JXa9QJ RlZFxwbGFpblxmMVxmczIy MNzmfrijELHbPDlqB8gsQp DxQHBwkTvwGSxne0YsJQZr ZZJeOwxaglBtSSc2bnXnZF BhclxwbGFpblxmMVxmczIy PPhlcdifLVUjSWcoW2qfJj LcTSUabJgqHSmfc5CwGRYp XGNmMlxmczIyICBccGxhaW 0iSvDwMsLwXympVJ6bHDMr U7rsjUNeJZYpWCEpO6tnMy MogC6mvVqoNRvgAcIsPzPr MlxsdHJjaFxwYXJccGxhaW 8aTqUqHkGuClveME1sKZNh N9uogMDyMUKsPXHnT6umCc QqqH4hyBunNIqaAcPjSuVn TxFCyM62gl3wmNS9g4CjTR 7ug5FquEU8IFMtaxdaMItv tQWtqMydVqQ8OBRxaEYkIy 5ebLYkWPX5MWTdzFzwktQL sM5yTTVbBDhtaJShkmenVU xmczIyXGxhbmcxMDMzXGhp C8vtNeIaOHJbtRdhGGqxl3 NoXGYxXGNmMlxmczIyXHU4 ChG4QYyoTRShsIkdrA8qXa NoRpZhAljmZS5cLIMxU3tu eUPaZSVdWYXzX7elPuBkgT 9jaFxmMVxjZjJcZnMyMiBz TK9tDNfiDYjlQ4ZgoMJxMS DMWXDqa2sxQ2xzITYwd6Gu wI0mxLA7oEVlBVFyqSA6AH DdAMH8DCtocFSxADIpIDDd gPNgpXNnTd9hfMLpT5ExG3 jbbkAugPIbeOI1xACyAIvi wbMyYON6IBQltK1eSS4rEF ElgMIbAV6alBPoDNSaJTJj YNQmAVJdi9KfXSUpgg97YB IdMscuuNoqLOUbCb1kRh9r FJArprRbMGT2YdKRMH1lsc gcwIUvmQvxou6wMVmfBPMP UVAqSYNcXPT4WRDmzZ9eXG U2uBH4KKO1U5bnW5gdMPWm bgEsEU1vAQBqsBUkhxLyYG bsVS8stJLcKVIjk1Ybuqyg BFIwXPD2FGB5CDzrXZHxNX QmVv9dJOVvpF0uN5CiBBO1 gcCou0ClHwULsBHnyZ91iV Cnkq42GAQdLCXqJ9YtGREk IGFzIGludmVzdGlnYXRpb2 1xfKRxylGsn8LvbiQiHJTy E6nrKLItrDFxdKSvq5FmbD 1unCWjkgOoXJI3rDXpZAZf bS8rQZKlqLvqWDIxpA9oA3 CfEMteTu9kPEVpxyynOT8z ct38NJ3uijAhQP6apgUqEF 01xqUpGtHeSZi5XRwMIAiJ XUd8ULWtreOweAJphFRjGY RukJ4deTCdFn1nnNKzdFak IHGxfOCsCXdotWevM6niij xbXYpybUFis4OctS6woDS9 XLC7gW6fKysxnERgmvrnKu xmczIyXGxhbmcxMDMzXGhp S8wlMzYzAGFrzGwwWzbel7 NoXGYyXGZzMjJccGFyXHBh pdWboVnjxU4zPgIfOlIgNI mzuTDdhbpwDblevxF5WWEf cn0= Gross assessment was [facility] performed at ([facility], = 2777) Department of Pathology, [address] [place] [address], Technical component was [facility] performed at ([facility], = 2778) Department of Pathology, [address] [place] [address], Professional component [facility] was performed at ([facility], code = 2779) Department of Pathology, [address] [place] [address], [facility] Hospital[facility] [id number] 10:48:00Surgical Pathology Report Case: [id number] Authorizing Provider: David Alfred, Collected: 01/17/2020 05:03 PM OrderingLocation: [address] Received: 01/18/2020 09:09 AM Service Pathologist: [...] REPORT TO FOLLOW.Signing Pathologist Direct Phone Line: [phone] signed by Wayne Mcadams MD on 01/18/2020 at 4:47 [id number], [id number] BLEEDGastric biopsyReceived in formalin labeled withthe patient's [...] evaluated Immunohistochemistry technical testing was performed at [facility], Pathology Laboratory where it was developed [...] qualified to perform high complexity clinical laboratory testing.[facility], Department of Pathology, [address] [place] [address], [place] [address], [facility], [facility], [address] [place] [address], [facility], [facility], [address] [place] [address], Tsgizq doppler arm, right 2020-01-19 11:48:48Ejection FractionSLEH ECHO [...] Date of Study 01/18/2020 Age 74 VisitNumber [id number] Gender Male Accession Number [id number] Date of 1945 Referring Thao M Room Number 1023 Physician Zuri Burn Crew Member Wyatt Gonzalez Interpreting BEBA Portillo Physician ProcedureType [...] in cm/s ; Diameters are measured in [facility] Basic Metabolic [id number] 04:55:00 Test Item Value Reference Range Interpretation [...] (test code = 7.7 mg/dL 8.4-10.2 L 82092-0) EGFR (test code = 118 mL/min/1.73 [place] [address]-9) NOT ACCURATE CREATININE CLEARANCE IN PREDICTING GLOMERULAR FILTRATION RATE . ESTIMATED GFR I S NOT APPLICABLE FOR DIALYSIS PATIENTS. BEAR (test code = BEAR) [employer] Supervisor ID - AYAZ W Lab Interpretation Abnormal (test code = 61140-9) [facility]esium[facility] 04:55:00 Test Item Value Reference Range Interpretation Comments Magnesium (test code = 2.2 mg/dL 1.6-2.6 23826-2) BEAR (test code = BEAR) [employer] Supervisor ID - AYAZ W Lab Interpretation (test Normal code = 71051-4) [facility] 04:[facility]00 Test Item Value Reference Range Interpretation Comments MAGNESIUM (BEAKER) (test code = 2.2 mg/dL 1.6-2.6 627) [employer] Supervisor ID - AYAZ WBASIC METABOLIC [id number] 04:55:00 Test Item Value Reference Range Interpretation Comments SODIUM (BEAKER) 135 meq/L 136-145 L (test code = 381) POTASSIUM (BEAKER) 3.5 meq/L 3.5-5.1 (test code = 379) CHLORIDE (BEAKER) 104 meq/L 98-107 (test code = 382) CO2 (BEAKER) (test 24 meq/L -29 code = 355) BLOOD UREA NITROGEN 20 [...] S NOT APPLICABLE FOR DIALYSIS PATIEN TS. [employer] Supervisor ID - AYAZ WCBC with platelet count + automated [id number] 04:31:00 Test Item Value Reference Range Interpretation [...] 450 K/CU MM MPV (test code = 35802-8) 11.9 fL 9.4-12.4 nRBC (test code = [...] 2801) Lab Interpretation (test code = Abnormal 91920-9) [facility] W/PLT COUNT & AUTO [id number] 04:31:00 Test Item Value Reference Range Interpretation [...] PERCENT (BEAKER) (test code = 2801) Prothrombin time/[id number] 04:30:00 Test Item Value Reference Range Interpretation [...] valves. Lab Interpretation Abnormal (test code = 69280-6) [facility] HospitalPROTHROMBIN TIME/[id number] 04:30:00 Test Item Value Reference Range Interpretation [...] for patients wiht mechanical heart valves.Prepare Leuko-Red [id number] 23:54:00 Test Item Value Reference Range Interpretation Comments CROSSMATCH (test code = 2264) COMPATIBLE Unit ABO (test code = B Pos 2173840) UNIT NUMBER (test code = [id number] 934-0) Status (test code = 5408326) [place]_TIMEINCHART Blood Bank Product (test code RED BLOOD CELLS = 2263) PRODUCT CODE (test code = L1097G49 933-2) [facility] HospitalECG 12 amab6382-72-93 10:52:57Interface, External Ris In - 01/18/2020 10:53 AM CDTVentricular Rate 84 BPMAtrial Rate 84 BPMP-R Interval 228 msQRS Duration 86 msQ-T Interval 414 msQTC Calculation(Bazett) 489 msP [place] 89 degreesR [place] 40 degreesT [place] 35 degreesSinus rhythm with 1st degree A-V blockNonspecific ST abnormalityProlonged QTAbnormal ECGNo previous ECGs availableConfirmed by MD HARRIETT, ROULA ([id number]) on 01/18/2020 10:52:55 AM [facility] HospitalMAGNESIUM2020-06-15 05:53:00 Test Item Value Reference Range Interpretation Comments MAGNESIUM (BEAKER) (test code = 2.4 mg/dL 1.6-2.6 627) [employer] Supervisor ID - PIAYA LBASIC METABOLIC [id number] 05:53:00 Test Item Value Reference Range Interpretation [...] S NOT APPLICABLE FOR DIALYSIS PATIEN TS. [employer] Supervisor ID - PIAYA LPROTHROMBIN TIME/TVC2031-31-18 05:26:00 Test Item Value Reference Range Interpretation [...] mechanical heart valves.CBC W/PLT COUNT & AUTO [id number] 05:15:00 Test Item Value Reference Range Interpretation [...] = 2801) CBC W/PLT COUNT & AUTO [id number] 12:38:00 Test Item Value Reference Range Interpretation [...] (BEAKER) (test code = 2801) Hemoglobin and rxliqxpdoi2912-05-92 05:57:00 Test Item Value Reference Range Interpretation Comments Hemoglobin (test code = 6.2 13.7- 17.5 GM/DL L 786-4) Hematocrit (test code = 19.3 % 40.1-51 L 4544-3) BEAR (test code = BEAR) [employer] Supervisor ID - [id number] Lab Interpretation (test Abnormal code = 34939-0) [facility] HospitalHEMOGLOBIN AND [id number] 05:57:00 Test Item Value Reference Range Interpretation Comments HEMOGLOBIN (BEAKER) (test code = 6.2 GM/DL 13.7-17.5 L 410) HEMATOCRIT (BEAKER) (test code = 19.3 % 40.1-51.0 L 411) [employer] Supervisor ID - [id number] B12 and Muxjzg1411-42-31 05:35:00 Test Item Value Reference Range Interpretation Comments Vitamin B12 (test code = >2000 213-816 H 2132-9) Folate (test code = 14.20 ng/mL >=7.00 2284-8) BEAR (test code = BEAR) [employer] Supervisor ID - MARVA L Lab Interpretation (test Abnormal code = 02413-3) [facility] HospitalVITAMIN B12 AND [id number] 05:35:00 Test Item Value Reference Range Interpretation Comments VITAMIN B12 (BEAKER) (test code = > pg/mL 213-816 H 774) FOLATE (BEAKER) (test code = 362) 14.20 ng/mL >=7.00 [employer] Supervisor ID - MARVA KLhzfywfa2759-74-10 05:27:00 Test Item Value Reference Range Interpretation Comments Ferritin (test code = 947.60 ng/mL 5-275 H 2276-4) BEAR (test code = BEAR) [employer] Supervisor ID - MARVA L Lab Interpretation (test Abnormal code = 20715-9) [facility] HospitalFERRITIN2020-06-14 05:27:00 Test Item Value Reference Range Interpretation Comments FERRITIN (BEAKER) (test code = 947.60 ng/mL 5.00-275.00 H 361) [employer] Supervisor ID - MARVA LHEMOGLOBIN AND [id number] 03:47:00 Test Item Value Reference Range Interpretation Comments HEMOGLOBIN (BEAKER) (test code = 5.3 GM/DL 13.7-17.5 LL 410) HEMATOCRIT (BEAKER) (test code = 16.1 % 40.1-51.0 L 411) [employer] Supervisor ID - MarizaPROTHROMBIN TIME/[id number] 03:38:00 Test Item Value Reference Range Interpretation [...] INR is2.5-3.5 for patients wiht mechanical heart valves.Hjbwtspvzsh0806-42-54 02:11:00 Test Item Value Reference Range Interpretation Comments Haptoglobin (test code = 277 mg/dL 14-258 H 4542-7) BEAR (test code = BEAR) [employer] Supervisor ID - MARVA L Lab Interpretation (test Abnormal code = 48651-7) [facility] HospitalHAPTOGLOBIN2020-06-14 02:11:00 Test Item Value Reference Range Interpretation Comments HAPTOGLOBIN (BEAKER) (test code = 277 mg/dL 14-258 H 366) [employer] Supervisor ID - MARVA Hicks, TIBC, % sat. (without ferritin)2020-01-17 02:10:00 Test Item Value Reference Range Interpretation Comments Iron (test code = 2498-4) 38.0 ug/dL 40-160 L TIBC (test code = 2500-7) 151 ug/dL 250-450 L Iron % Saturation (test 25 % 20-55 code = 2502-3) BEAR (test code = BEAR) [employer] Supervisor ID - MARVA L Lab Interpretation (test Abnormal code = 18868-3) [facility] HospitalIRON, TIBC, % SAT. (WITHOUT FERRITIN)2020-01-17 02:10:00 Test Item Value Reference Range Interpretation Comments IRON (BEAKER) (test code = 547) 38.0 ug/dL 40.0-160.0 L TOTAL IRON BINDING CAPACITY 151 ug/dL 250-450 L (BEAKER) (test code = 769) IRON % SATURATION (2) (BEAKER) 25 % 20-55 (test code = 2590) [employer] Supervisor ID - MARVA PETERSON, jpjcpw8103-64-25 02:00:00 Test Item Value Reference Range Interpretation Comments ABO Grouping (test code = 2588) B Rh Factor (test code = 2589) POS [facility] HospitalType and screen, ocxufgmlf6932-32-73 01:59:00 Test Item Value Reference Range Interpretation Comments ABO/RH AUTOMATED (BEAKER) (test B POSITIVE code = 2260) Ab Scrn (test code = 890-4) NEGATIVE [facility] HospitalHepatic function [id number] 01:50:00 Test Item Value Reference Range Interpretation Comments Protein, Total (test code 5.8 6.0- 8.3 gm/dL L = 2885-2) Albumin (test code = 2.7 g/dL 3.5-5 L 59410-8) Total Bilirubin (test code 0.6 mg/dL 0.2-1.2 = 1975-2) Bilirubin, Direct (test 0.4 mg/dL 0.1-0.5 code = 1968-7) Alkaline Phosphatase (test 71 U/L 40-150 code = 6768-6) AST (test code = 1920-8) 40 U/L 5-34 H ALT (test code = 1742-6) 26 U/L 6-55 BEAR (test code = BEAR) [employer] Power[employer] Supervisor ID - MARVA L Lab Interpretation (test Abnormal code = 46723-7) [facility] HospitalLactate dehydrogenase (LDH)2020-01-17 01:50:00 Test Item Value Reference Range Interpretation Comments LDH (test code = 2532-0) 484 U/L 125-220 H BEAR (test code = BEAR) [employer] Supervisor ID - MARVA L Lab Interpretation (test Abnormal code = 41206-9) [facility] HospitalMAGNESIUM2020-06-14 01:50:00 Test Item Value Reference Range Interpretation Comments MAGNESIUM (BEAKER) (test code = 2.4 mg/dL 1.6-2.6 627) [employer] Supervisor ID - MARVA LBASIC METABOLIC [id number] 01:50:00 Test Item Value Reference Range Interpretation [...] S NOT APPLICABLE FOR DIALYSIS PATIEN TS. [employer] Supervisor ID - MARVA LHEPATIC FUNCTION [id number] 01:50:00 Test Item Value Reference Range Interpretation [...] (test code = 26 U/L 6-55 347) [employer] Supervisor ELVIRA ANGELOHUE LLACTATE DEHYDROGENASE (LDH)2020-01-17 01:50:00 Test Item Value Reference Range Interpretation Comments LACTATE DEHYDROGENASE (BEAKER) (test 484 U/L 125-220 H code = 635) [employer] Supervisor ELVIRA DURHAM LSARS-COV2/RT-PCR ([facility])2020-01-17 01:38:00 Test Item Value Reference Range Interpretation Comments SARS-COV2/RT-PCR (test Not Detected Not Detected, Negative code = 8046021) SARS-COV-2 PERFORMING LAB [facility] (test code = 3966131) Negative results do not preclude SARS-CoV-2 infection [...] of the Act.Fact Sheet for Healthcare Pro viders:https://www.Spool/Documents/Xpert%20Xpress%20SARS%20CoV-2/Fact%20Sh eets/302-3802%10ZEML-SPV-4%20HEALTHCARE%20PROVIDERS%20FACT%20SHEET.pdfFact Sheet for Healthcare Patients:https://www.Rocket Software/Documents/Xpert%20Xpress%20SARS%20CoV-2/Fact%20Sheets/302-3801%20SARS-COV -2%20PATIENT%20FACT%20SHEET.pdfPerforming Laboratory:[facility], [place] [address]MO/vIQW3034-55-92 01:24:00 Test Item Value Reference Range Interpretation Comments Protime (test code = 16.5 11.9- 14.2 H 5902-2) seconds INR (test code = 1.4 <=5.9 6301-6) PTT (test code = 31.0 22.5- 36.0 59727-3) seconds BEAR (test code = BEAR) Effective 12/31/2018: PT Reference Range ChangeNew: 11.9-14.2 Previous: 11.7-14.7 RECOMMENDED COUMADIN/WARFARIN INR THERAPY RANGESSTANDARD DOSE: 2.0-3.0 Includes: PROPHYLAXIS for venous thrombosis, systemic embolization; TREATMENT for venous thrombosis and/or pulmonary embolus.HIGH RISK: Target INR is 2.5-3.5 for patients wiht mechanical heart valves. Lab Interpretation Abnormal (test code = 87026-9) [facility] HospitalPT/[id number] 01:24:00 Test Item Value Reference Range Interpretation [...] is2.5-3.5 for patients wiht mechanical heart valves.Reticulocyte hfjlk7974-97-87 01:20:00 Test Item Value Reference Range Interpretation Comments % Retic (test code = 4.9 % 0.5-1.8 H 90758-2) BEAR (test code = BEAR) Steam Powerplant Supervisor ID - [id number] Lab Interpretation (test Abnormal code = 70123-5) [facility] W/PLT COUNT & AUTO [id number] 01:20:00 Test Item Value Reference Range Interpretation [...] PERCENT (BEAKER) (test code = 2801) RETICULOCYTE [id number] 01:20:00 Test Item Value Reference Range Interpretation Comments RETICULOCYTE COUNT PCT (BEAKER) (test 4.9 % 0.5-1.8 H code = 575) Steam Power[employer] Supervisor ID - [id number]
[2020-06-23] MEDS ORDERED: NA CHLORIDE 0.9% 250 ML ONE (07:53)
[2020-06-23 08:01] VITALS: TEMP 98.4; BMI 26.5
[2020-06-23] MEDS ORDERED: HEPARIN 500 UNIT/5 ML SYR IV ONE (09:05)
[2020-06-23 09:12] VITALS: BP 129/69; O2SAT 100
== END 2020-06-23 09:10 | disposition home health service (06) ==
LOC: DS 06:54
PROVIDERS: ATTEND Internal Medicine Hematology & Oncology
DX: D69.59 Other secondary thrombocytopenia (principal); C83.30 Diffuse large B-cell lymphoma, unspecified site
CPT/HCPCS: 86900; 86901; 36430; J1642; P9035; J7050; 96365

== ENCOUNTER 2020-10-30 20:48 | Emergency (ER) | payer OTHER ==
--- OUTSIDE RECORDS SUMMARY | 2020-10-30 20:51 | XMS REPORT | Continuity of Care Document ---
:1945 Author Organization [facility] t Address [address] [place] [address] Dr. [address] [place] [address] Care Team Providers Name Role Phone Jacquie GAMBLE Attending Clinician Enrique Avila MD Attending Clinician Zuri GAMBLE, Wong Attending Clinician [phone] JACQUIE Attending Clinician Unavailable Chana GAMBLE, Vivian Attending Clinician Tima GAMBLE, Raymond Attending Clinician Bib Mi Attending Clinician VISIT, SKIP TRACER ECHO Attending Clinician Unavailable JACQUIE Admitting Clinician Unavailable Payers Payer Name Policy Type Policy Effective Date Expiration Date Sour ce Number [facility] [id number] [facility] - MEDICARE MGD 00:00[facility] [id number]/08/06 020-Present Problems Condition Condition Condition Status Onset [...] 6-14 Emmie kes - anemia anemia 00:00: [place] [address] Center ASHLY (acute ASHLY (acute Disease Active [facility] kidney kidney 6-14 [facility] - injury) injury) 00:00: Medical 00 Center GIB GIB Disease Active [facility] ([facility]astroint (gastroint 6-13 Emmie kes - estinal estinal 00:00: Medical bleeding) bleeding) 00 Cent er Essential Essential Disease Active [facility] hypertensi hypertensi 6-13 Emmie kes - on on 00:00: Medical 00 Center 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 M emoria a [...] Active 2019-09-06 emoria r 00:26:45 l premature [place] complex Ventricula (disorder) r premature complex (disorder) Active Problem 09/06/2019 Medical Group Allergies, Adverse Reactions, Alerts This patient has no known allergies or adverse reactions. Social History Social Habit Start Date Stop Date Quantity Comments Source History [facility] - Alcohol Std Drinks [facility] History [facility] - Alcohol Binge Medical Surekha ter Sex Assigned At [facility] Alcohol intake 2020-01-18 2020-01-18 Current [facility] es - 00:00:00 00:00:00 non-drinker of Medical Ce nter alcohol (finding) Tobacco use and 2020-01-18 2020-01-18 Never used [facility] - exposure 00:00:00 00:00:00 Medical Center History SDOH 2020-01-17 2020-01-[address] [facility] - Alcohol Frequency 00:00:00 00:00:00 [facility] Center Smoking Status Start Date Stop Date Source Never smoker [facility] edical Center Medications Ordered Filled Start [...] tab, PO, l tablet 15:37: Q12H, # [place] 09 180 tab, 3 Refill(s), Pharmacy: [facility] amLODIPine 2019-0 Yes 5 mg = 1 Mem oria 5 mg oral 8-01 tab, PO, l tablet 15:37: BID, # 60 Shaun n 07 tab, 11 Refill(s), Pharmacy: [facility] amLODIPine 2018-0 No 5 mg = 1 Mem oria 5 mg oral 1-21 tab, PO, l tablet 22:16: BID, # 60 Shaun n 21 tab, 11 Refill(s), Pharmacy: [facility] flecainide 2017- Yes 100 mg = 1 M emoria 100 mg oral 1-01 tab, PO, l tablet 16:47: Q12H, # [place] 00 180 tab, 3 Refill(s), Pharmacy: [facility] amLODIPine 2017-0 Yes 5 mg = 1 Mem oria 5 mg oral 7-12 tab, PO, l tablet 15:46: BID, # 30 Shaun n 41 tab, 11 Refill(s), Pharmacy: [facility]08 flecainide 2018-0 Yes 50 mg = 1 Me moria 50 mg oral 7-12 tab, PO, l tablet 15:46: Q12H, # 60 Celina nn 00 tab, 5 Refill(s), Pharmacy: [facility] Vital Signs Vital Name Observation Time Observation Value Comments Source Systolic blood 2020-01-19 07:00:00 122 mm[Hg] [facility] Diastolic blood 2020-01-19 07:00:00 64 mm[Hg] [facility] Heart rate 2020-01-19 07:00:00 74 /min [facility] Body temperature 2020-01-19 07:00:00 36.28 [facility] Respiratory rate 2020-01-19 07:00:00 18 /min [facility] Body weight 2020-01-19 07:00:00 95.7 kg [facility] BMI 2020-01-19 07:00:00 28.61 kg/m2 [facility] Oxygen saturation in 2020-01-19 07:00:00 99 /min [facility] Arterial blood by Medical Ce nter Pulse oximetry Body height 2020-01-17 00:00:00 182.9 cm [facility] Systolic (mm Hg) 2019-09-03 16:13:00 León rial [place] Diastolic (mm Hg) 2019-09-03 16:13:00 Mem orial [facility] Heart Rate 2019-09-03 16:13:00 [facility] [place] Height 2019-09-03 16:13:00 187.96 cm [facility] [place] Weight 2019-09-03 16:13:00 [facility] [place] BMI Calculated 2019-09-03 16:13:00 [facility] [place] [facility] Calculated 2019-03-05 14:43:00 Memori al [place] Heart Rate 2019-03-05 14:43:00 [facility] [place] Systolic (mm Hg) 2019-03-05 14:43:00 León rial [place] Diastolic (mm Hg) 2019-03-05 14:43:00 Mem orial [place] Weight 2019-03-05 14:43:00 [facility] [place] Height 2019-03-05 14:43:00 187.96 cm [facility] Systolic (mm Hg) 2018-09-05 17:41:00 León rial [place] Diastolic (mm Hg) 2018-09-05 17:41:00 Mem orial [place] Heart Rate 2018-09-05 17:41:00 [facility] [place] Height 2018-09-05 17:41:00 187.96 cm [facility] [place] Weight 2018-09-05 17:41:00 [facility] [place] BMI Calculated 2018-09-05 17:41:00 Memori al [place] BMI Calculated 2018-06-05 16:04:00 Memori al [place] Height 2018-06-05 16:04:00 185.42 cm [facility] [place] Weight 2018-06-05 16:04:00 [facility] [place] Systolic (mm Hg) 2018-06-05 16:04:00 León rial [place] Diastolic (mm Hg) 2018-06-05 16:04:00 Mem orial [place] Heart Rate 2018-06-05 16:04:00 [facility] [place] BMI Calculated 2018-02-13 15:20:00 Memori al [place] Weight 2018-02-13 15:20:00 [facility] [place] Systolic (mm Hg) 2018-02-13 15:20:00 León rial [place] Diastolic (mm Hg) 2018-02-13 15:20:00 Mem orial [place] Heart Rate 2018-02-13 15:20:00 [facility] [place] Height 2018-02-13 15:20:00 185.42 cm [facility] [place] Height 2017-12-25 15:51:00 185.42 cm [facility] BMI Calculated 2017-12-25 15:51:00 Memori al [place] Weight 2017-12-25 15:51:00 [facility] [place] Systolic (mm Hg) 2017-12-25 15:51:00 León rial [place] Diastolic (mm Hg) 2017-12-25 15:51:00 Mem orial [place] Heart Rate 2017-12-25 15:51:00 [facility] [place] Height 2017-07-03 17:24:00 185.42 cm [facility] [place] Weight 2017-07-03 17:24:00 [facility] [place] Systolic (mm Hg) 2017-07-03 17:24:00 León De Diastolic (mm Hg) 2017-07-03 17:24:00 Rene De BMI Calculated 2017-07-03 17:24:00 Patrick Teague Heart Rate 2017-07-03 17:24:00 [facility] Procedure Date / Time Performed Performing Clinician Sour e SARS-COV2/RT-PCR ([facility] & 2020-02-12 11:50:00 [facility] - REF LABS) Medical Center REPORT OF PROCEDURE - 2020-01-20 13:53:10 Provider, Default [facility] ENDOSCOPY SCAN Scanning [facility] RHYTHM STRIP - SCAN 2020-01-20 13:53:05 Provider, Default [facility] TRANSFUSION SERVICE 2020-01-19 18:10:35 Provider, Default [facility] REPORT - SCAN [facility] CBC W/PLT COUNT & AUTO 2020-01-19 03:55:00 ARVIN Dhillon S t Rebeca - DIFFERENTIAL [facility] BASIC METABOLIC PANEL (7) 2020-01-19 03:55:00 MELISSA Dhillon [facility] MAGNESIUM 2020-01-19 03:55[facility]00 [facility] 2020-01-19 03:55[facility] LE[facility]-REDUCED RBC 2020-01-18 23:54:00 MELISSA Dhillon [facility] TRANSFUSION SERVICE 2020-01-18 18:00:14 Provider, Default [facility] VENOUS DOPPLER ARM, RIGHT 2020-01-18 16:00:00 Gadicherla, Thao [facility] CBC W/PLT COUNT & AUTO 2020-01-18 04:48:00 ARVIN Dhillon S t Emmiekes DIFFERENTIAL [facility] BASIC METABOLIC PANEL (7) 2020-01-18 04:48:00 MELISSA Dhillon [facility] MAGNESIUM 2020-01-18 04:48:00 [facility]INR 2020-01-18 04:48[facility]00 [facility] REPORT OF PROCEDURE - 2020-01-17 17:18:56 David Alfred [facility] ENDOSCOPY URL [facility] TISSUE EXAM 2020-01-17 17:03:[address] [facility] UPPER 2020-01-17 13:03:00 David Alfred [facility] ENDOSCOPY,SCLEROTHERAPY [facility] UPPER ENDOSCOPY,BIOPSY 2020-01-17 13:03:00 David Alfred [facility] CBC W/PLT COUNT & AUTO 2020-01-17 12:11:00 Van Cope [facility] TRANSFUSE LEUKO-REDUCED 2020-01-17 08:35:27 [facility] TRANSFUSE LEUKO-REDUCED 2020-01-17 06:06:38 [facility] RED BLOOD CELLS [facility] HEMOGLOBIN AND HEMATOCRIT 2020-01-17 05:38:00 [facility] PROTHROMBIN TIME/INR 2020-01-17 03:16:00 [facility] HEMOGLOBIN AND HEMATOCRIT 2020-01-17 03:16:00 [facility] TRANSFUSE LEUKO-REDUCED 2020-01-17 02:57:49 [facility] RED BLOOD CELLS [facility] ABORH, MANUAL 2020-01-17 01:27:00 Marla Berger [facility] VITAMIN B12 AND FOLATE 2020-01-17 01:26:00 [facility] IRON, TIBC, % SAT. 2020-01-17 01:26:[address] [facility] (WITHOUT FERRITIN) [facility] FERRITIN 2020-01-17 01:26:00 [facility] HAPTOGLOBIN 2020-01-17 01:26:00 [facility] TYPE AND SCREEN, 2020-01-17 00:57:00 [facility] s - AUTOMATED [facility] CBC W/PLT COUNT & AUTO 2020-01-17 00:57:00 [facility] DIFFERENTIAL [facility] BASIC METABOLIC PANEL (7) 2020-01-17 00:57:00 [facility] MAGNESIUM 2020-01-17 00:57:00 [facility] HEPATIC FUNCTION PANEL 2020-01-17 00:57:00 [facility] PT/APTT 2020-01-17 00:57:00 [facility] RETICULOCYTE COUNT 2020-01-17 00:57:00 [facility] LACTATE DEHYDROGENASE 2020-01-17 00:57:00 [facility] ([facility]) [facility] SARS-COV2/RT-PCR ([facility] & 2020-01-17 00:37:00 [facility] - REF LABS) [facility] ECG 12-LEAD 2020-01-17 00:08:25 [facility] Plan of Care Planned Activity Planned [...] 00:00:00 (1 of 1 - Medical Center [id number] PCV13) [code = PNEUMOCOCCAL 65+ YRS (1 of 1 - [id number] PCV13)] Future Scheduled 1945 Screening for [facility] St Joey es - Test 00:00:00 malignant neoplasm of Medica l Center colon (procedure) [code = 135698931] Encounters Start End Encounter Admission Attending Care Care Encounter Source Date/Time Date/Time Type Type Clinicians Facility Department ID 2019-09-03 2019-09-03 Out[facility], [facility] [id number] 10:00:00 23:59:59 Abraham Mccartney 16 2019-03-05 2019-03-05 Outpatient [facility]ot, [facility] [id number] 10:00:00 23:59:59 Abraham Mccartney 15 2018-09-05 2018-09-05 Outpatient [facility]wot, [facility] [id number] 11:15:00 23:59:59 Abraham Mccartney 14 2018-09-05 2018-09-05 Outpatient Hiwot, [facility] [id number] 11:15:00 23:59:59 Abraham Mccartney 14 2018-09-05 2018-09-05 Outpatient VISIT, [facility] [id number] 10:45:00 23:59:59 NURSE SKIP TRACER 13 SENTHIL 2018-09-05 2018-09-05 Outpatient VISIT, [facility] [id number] 10:45:00 23:59:59 NURSE SKIP TRACER 13 ECHO 2018-06-05 2018-06-05 Outpatient [facility]wot, [facility] [id number] 11:00:00 23:59:59 Abraham Mccartney 12 2018-02-13 2018-02-13 Outpatient Hiwot, [facility] [id number] 10:45:00 23:59:59 Abraham Mccartney 11 2018-02-13 2018-02-13 Outpatient VISIT, [facility] [id number] 10:00:00 23:59:59 NURSE SKIP TRACER 10 ECHO 2017-12-25 2017-12-25 Outpatient Hiwot, [facility] [id number] 11:00:00 23:59:59 Abraham Mccartney 09 2017-08-16 2017-08-17 Outpatient [facility] [id number] 15:30:00 23:59:59 00 2017-08-16 2017-08-17 Outpatient [facility] [id number] 15:30:00 23:59:59 00 2017-07-03 2017-07-03 Outpatient Hiwot, [facility] [id number] 12:00:00 23:59:59 Abraham Mccartney 08 2017-07-03 2017-07-03 Outpatient Hiwot, [facility] [id number] 11:30:00 23:59:59 Abraham Mccartney 07 Results Test Description Test Time Test Comments Results Result Comments Source SARS-CoV2/RT-PCR ([facility] & Ref Labs) 2020-02-13 11:36:00 Test Item Value Reference Range Interpretation Comme nts SARS-COV2/RT-PCR (test code = Not Detected Not Detected, Negative 38296-1) SARS-COV-2 PERFORMING LAB [facility] (test code = 95570-2) [facility] (test code = BERA) Negative results do not preclude SARS-CoV-2 infection [...] of the Act. Fact Sheet for Healthcare Providers:https://www.[employer]/Documents/Xpert%20Xpress %20SARS%20CoV-2/Fact%20Sheets /3023802%80BTUU-KEO-3%20HEAL THCARE%20PROVIDERS%20FACT%20S HEET.pdf Fact Sheet for Healthcare Patients:https://www.[employer]/Documents/Xpert%20Xpress% 20SARS%20CoV-2/Fact%20Sheets/ 3023801%63XMPL-GTL-6%20PATIE NT%20FACT%20SHEET.pdf Performing Laboratory:[facility] [place] [address] [facility] & REF LABS)2020-02-13 11:36:00 Test Item Value Reference Range Interpretation Comments SARS-COV2/RT-PCR (test Not Detected Not Detected, Negative code = 5102145) SARS-COV-2 PERFORMING LAB [facility] (test code = 1036941) Negative results do not preclude SARS-CoV-2 infection [...] of the Act.Fact Sheet for Healthcare Pro viders:https://www.[employer].THEVA/Documents/Xpert%20Xpress%20SARS%20CoV-2/Fact%20Sh eets/302-9952%23BBMP-GJE-4%20HEALTHCARE%20PROVIDERS%20FACT%20SHEET.pdfFact Sheet for Healthcare Patients:https://www.[employer].THEVA/Documents/Xpert%20Xpress%20SARS%20CoV-2/Fact%20Sheets/3023801%20SARS-COV -2%20PATIENT%20FACT%20SHEET.pdfPerforming Laboratory:[facility], [place] [address]Gncmnf [id number] 10:48:00 Test Item Value Reference Range Interpretation Comments Case Report (test code Surgical Pathology = 104) Report Case: [id number] Authorizing Provider: David Alfred, Collected: 01/17/2020 05:03 PM Ordering Location: [address] Received: 01/18/2020 09:09 AM Service Pathologist: Wayne Mcadams MD Specimen: Biopsy, Gastric, Random gastric bx ADDENDUM (test code = u4cpzBZjWVWmpLMjWuVrSC 3381) XrUCXvr4gjIGPebSQiOjKz MzNcZnRuYmpcdWMxXGRlZm Ael7mtb641bKVjl5zsVBFl YoI7yCGhAKQlgIYoD975g7 owz3pyxfLfgXK8ALUyIPP3 MGxuwkEblcA0QKwbeCHdKf Z2VIzaitSgVDsbquSwzoWu Ugn1DFGsB370FVO4qVtdu4 lzZKX6GNHnLHNcYzNtOg7k pOTwC733OMDrCALGYMPbsH k4UDAxzuHsrwVwhAECl055 N949z0llXWUyhaJmjSiGjn cek5wkZ819LBUbyBZmkiCe QyFmXHWpkYVjaDC8SVBeZE 5qkltgNOkdGAjvISVbfyP1 YDKulHHeY9BaHPRdJQ6thj vmARH6JUtlQYNrBSY6ToHw CMXvj4Posjr3YbEgan2dni 33IVA8z5EbcVdtLBD0MEL4 FhHcGd0zqPAlVQCtKV3gJu GumJWhADHrjp76ySuoXDlx wkUugE0sUfIfFDHltZMsIX NiKB5hjWJjPZQdtJ2flycj XHBnYnJkcmhlYWRccGdicm VrHa5nyPwcTOL2EMcbV3kk oT2xGwX3PWqcO6fkhD3vBU v5QTvpoWA0DEBlkU8nLI8k fvbfx7pbHJbzFRllXHIahp S7kvO5NQCvqFDdD3AezQ7b CTFwSU7vlmroc8gbNVD8PS hsNKImFYQ8SgVsXEGep1Mf mbi6OmLfg1NymCQcSVleH5 2xm685XWXbmaRmS2wnbXFp sqhjjRNotsiyWNzikuW0NF FsXHBsYWluXGYwXGZzMjBc bGFuZzEwMzNcaGljaFxmMF qoAzVcEBXkVZztF9hlTvKo NtTeEXTFyU73gn7nrXWjto Kbt7LjrCOlsEWkAxLtaXXc RWMpvlBbzm3nYSWruhYmoI 0qknLJRNMcdvQQW9YTHFdW WD6niLEytU== DIAGNOSIS (test code = o5xvwRCsAPZst8zpTGVrfA 3220) FuZzEwMzNcZnRuYmpcdWMx FYqxxtMpBLofy6QfG8NrTe AwMFxhbnNpXGRlZmxhbmcx RIOhGLU9ycBkQNSzZAsbPY RtOSeeBx2pfAWnxKjkNeHb SLRha3scddSPupxglTj8u8 uoDGNbZoD1qRZnWZqdO8na lfNpdTErKKTqFDy3rJ62TN IsrH1zfGYgDPcseqXrDlA2 VCofXAElLcU4SQDotNUhKH LhP5epYPClCHorXWHjRWxs nWVfLLO8qTkkh1J6cNSfgL LyfRliDsWbTsUwUXUQr4Rt ISb9sVyjV5SnTBWbRhP2pW QgUGFyYWdyYXBoIEZvbnQ7 uO88HMalovY0rBCyg4Ydi2 6bg593yU4hpBBxOKW5VZFd JQHvsPJtNYWzDLW5UGCauP TtL5g0TcDkqGAgM6J1JiFe cSTqO4A5YrLwjDIiX1G0Nq SzuNVpBDMpoVIpAr3zvHPj kJZsgh7bvh88YBE4k6HfwY hlBKW8EEF2McRiZf1lyQKq ZGCaZX2jTtVybTKbHNUfum 03bWjrXQsgdwVyxT5zUkBs ULMkuKJuHBLfKF9jsMMoWF LbzU5bcijoXAFxJyDryzlr LZFzcSkqkcAhTx0igMiaPB C2OClhZ9coxF4mIsS3IVuj C3syzH8tRAy8CQlpnXO6FP XnmV3gMM8edikcq6hnQrOp FG0adngka8wvOsYyEK0cff b3k4usYzMiIF0quxgwl7qo NzIwXGhlYWRlcnkwXGZvb3 RgdxkkUGMpy1HoW7GysFiq X22ycEhsX74lHOVgpEnhhD 5riGesgH1cMsKyEpYhTRwx bFxwbGFpblxmMVxmczIwXG jqucriWQIyHDojV7qnHcGl ZTYnaGsvOQyjd1KzMNUrCO ZzMjAgUEFSVCBBIFJBTkRP ELJKEBYIIfrQUHZFV5PQGS pccGFyIEFOVFJBTCBBTkQg U9aVYrZDHbZTCZJLR3JkD5 uGKBZKM7ZQCbOwO7sBA66X QyBHQVNUUklUSVMuXHBhci WOYHlJQAqGWYKRL6NnPB1E GAGMYH5VEUFQETTZRIhMI4 zQWBVDKPYJZVNKIMRcJW8R IElOVkFTSVZFIENBUkNJTk 9QBA1rsGQtJEtDAwEVVQ9f U5RVDzEYMQXADVzEVQSZZr QFSOeSP15CXZEPLMShHKIs TkVHQVRJVkUuXHBhciBJTU 2WLg8MSMVDRhBZQ6YoXOIV SUNPQkFDVEVSIElTIFBFTk RJTkcsIEFEREVORFVNIFJF NE2KWTHGPjSAJ3lBY1nhYM Uewv40YJI7IpEgf8E7SVK2 IKCcYPQtv2zgLAVrhFElSo EwMzNcZnRuYmpcdWMxXGRl KsQgf1cxp844mBGwe7kzFN KxIhW3fXPkFCXelODwJ010 CPEmYZytu2jnj0ExNZYwsZ Aln4Y0GYWPraajxXs2mGuc J04gp5S5ApddU2xlSXEdLO LqJ7BdXO9fCKXgCef1YUP6 RKG6TJSwQOMqR4VuQE5bVJ UzzPSfVUq9q5ynnYbyUNDn VGX0s0pqERxufdNzXT0gwj 2ptWu8u6ghixNzJWNzPJLt mBSSJMEiT7WcfDxaVk6seV y1vWezJkgiFYR9Xbk7YD5k pz17vtd7wYhvRSQvmgemDl K8ZYiyHELbewghHVg0XHke BEPbyWI6BMYvfZAxQ5FcMM CmRM9xyul6AHR6UOaxHOIv DuJ3UNZnjIHfITWuoWfkZF yhn940TWI7QfHaWZ2sW0Ej g1T0iG5bkCAwSEJynRAsXh XoZUXjne4gdYYaORnta8Po SAM0bwZ2yRRwhYYwFMLcUq M2BZtvCV9mbq01LWKkNHK9 np9taJMygXapruUarTFvPG gaJ2MeEJMnr804CXXbP6Yt LYRzq8M5vsHzYqEpXXRmmZ Z7xwU6KYZlBE5ukurpd1gv NYenVBjwOOQzhgY3grC1DV LzpGTbX0EefS0hPOCfJW2h ajcxf5hhOTH6NJntSJCjEF M9NqKcFOJyd2Zofki9YyGa z7TzvMSkEPerT22ip311YD CeqxAnZ0nlhYMtrntzmHDa mburPYsobaS3QOYwPIhjcw jiXNTfPEmtV5fxYtWeWTNa uPpzXFpjt8GxOYXlJUXxVx BucSZhLAVlFej5PHRovCQi GXIdIeTxT2ohseopAyPXQD Fqn1qqK6mkmDYOfDWkN9Ey UGhvbmUgTGluZTogODMyLT M3CJ58DQjnWFJezf47 CPT Code(s) (test code j6ptmKQrHBGvrXHjZjHuCZ = 3351) BkPCTeo1ovYXJdvIAcZdQo MzNcZnRuYmpcdWMxXGRlZm Ltf1edb204cVGxz7aeFASq IxS0kWYfNLPtpHYoF179b9 vpm6tlsaYvvFM5AQBrXOK1 VLqhaxChloW1NPapoRPhGz K6IBajmxLeVJqubcSnifLw Tnt7WKYzT272HAA4qStkw1 qzRFS7VBVkVITyLcXzPr5c kXBhO137HIYoNLZPHVUhaZ q9MRBjsfBffsWqiMMIe264 V705z2ehMMNdqaAddWaTre uxr2ufK833RYVniXQbsgSa CrRlUBMhsIIqtSX0EPDzSD 4nujtdHkRbMB7konskDxUy ZN4hqvm4OaJeRN1dpsqpEr YeFCqtYWPxwyknEPBew2Tv jfhhCJ0dI6Hgo5C1rR9pdV MzKSDimBUzUzQrBDVyud7b jYLfYFgha6OtAIM8qkN9cT BfcTCrKQZjVC53Rjarz7Ql XnlsXBA1NVDfytAhr3Bbh9 smAoWgowBbH6bvE3PcICOw DAOqGWEuWzRtbsQeo8Fnu6 CvvEDwoRp2g7itZMSiLLYq eDvdq4jsAJD5EPSpM3Q7iZ Ilh7zgMJmmGJCsiDJ7gwho WEmdGXEqlhX1isrvYNzlRK UqoZR4ppbxXVxvDOXnKqR3 yvxnOBysVJLtWGJ2ZUjmr5 31HLM3HTzaHrmnUOzvMHRa bmNvbnRccGduZGVjXHBsYW luXHBsYWluXGYwXGZzMjRc iArjzSlugM6mYcAcQlNcFG ioNK5wBNVfV2uynRKkUHGo IJQkZ7owYcFxkH9ktHttBW hpsiVvNYk1FyR6VTQ6UKDb MiwgODgzNDJccGFyfQ== CLINICAL HISTORY (test a8ypqNQgMHZqfBCfCtDcYD code = 3350) DlEPRfq1bhZLDpbTHtByEt MzNcZnRuYmpcdWMxXGRlZm Pwm8giu293bZTyt4frOOKc CvZ6wZLiGWJkeCYbH462GT SyGUryl7otm5BsRVHrdZLu n5S7QXKVeozpjHu8gZiiA5 3ri7J3AqjlF2bzZJYkWPAs V1BsDW0jFBOuIwg0GKU4IQ S9EBGbNHLgV2UcZN2zHKJm lDGfNZm6s7xccSjtGHHoEU D5g9nyPUxdorDkAY0tty3b wVo2n1guxnQePXAyKMVbxZ YZPQBuX3NsaTscTo1hzSs2 kXxzPcufZON7Zez7SF7fku 66tsi0sTlfANDmrrstBnR4 MPppQZDxtbjvZWh1NTsuRF JnbDcyMFxtYXJncjcyMFxt YXJndDcyMFxtYXJnYjcyMF hhKROeKIG9EKpjr054BNG9 LXsnb8xhx3uasNUuMvz0AW SfGqDuQwzbZPgxv7Qgt8pf QDOvlr8jIIJ8zABqpVwqx4 P0zGSaAFNmfRBietTsOPTf AkY5DVjuYE3owu96ZAMtFX O0id3fuOPopLhofhJpkTEy PKqtE8SxEDJnm185MHKaP7 KcHFRlz5N7guHgYiEuHFDr sMP9atR3HUAaUHv9kJQoxg R0siDnsFFfW4hpjE96RiNy gBNgJ0WvpT78KnOmlQPxE0 BqqM03WeEzkYKqD6SfvQ82 LiLjyCGwFYJxeFNjCx8koB AnaUTnk1BowFTaROsfW92u p583NBKlfnRnT9evbGDkqf oxuSWjwgipRMyryhA2NSr4 cnBhclxxbFxwbGFpblxmMV xmczIwXGxhbmcxMDMzXGhp Y7ipFzJbVDXfiZcjRHhav7 WnLVIyTRMnMuLwS2ayBiuV RURccGFyfQ== SPECIMEN SOURCE (test d0tdiWQnRVCokQFjTuYgSJ code = 3377) XsKCVcs1emWQDrdEEjVuKa MzNcZnRuYmpcdWMxXGRlZm Oak4qnq958vOBkr0fpKQDs MwH7bJFjOLMowZOxW064c4 wsn5bdzxFxlLV2FQAnIWJ0 NOflmyBqpfS4AIndqWTzQe O4KYlasmAbSBfkrjDkleUu Qjb6BIYvI953IDB5bQxve1 noRLQ9ZRFhWDPqTeDaRw1x hLQqP777TYKgWYEHCNStsP e9FLZoabAsnvTrlLGOe696 L115e3kgZBUcuhAqwWcVfq bji9rmL213CYAyzFXuspQz ZqOwZHXjgVXbkCE8BRWnDF 4gsxhhLzVwRT1dqhkeUaCy YD8bhjk8XmTnJO0ewtrvQo AhIIiwNFIuzytnPQLjd0Ao dlnfRH8hI3Nbr3W8dM2ltG QfCWPweMTzZnDsPQFozs3r zHUeODlet9KjBIG3vzT0lD DdrFNwGBRhDN59Iqply1Qf FpdnTGX7EURidnLcz3Mvs9 ldVgAxilYxZ8vqS4WxASUi LRSvKGAtPgOstsGcf3Yls6 QwrMOstJg5y8wxUWOmYFSv xHsbh3kpQDC6IKWuY8L0nH Kuf5moWKzhQJCusCA8lqso XKywEUKwjtB1pdkvCPnsRW CyuEI9lnfdWYerQIYqWfH9 spnoHOzfBBYhADR4ANwnq0 00JPZ3BUocKrcvFGypZBSv bmNvbnRccGduZGVjXHBsYW luXHBsYWluXGYwXGZzMjRc zDlmbBdfvV2rLiEgJtFkIR fzXB8eXDQkB7txkVXsWCHd LBAvO4aoSbEzaQ8elRxrHZ ypahXeXZevb2RrcGGhYkit fDE3UMAkfr2= GROSS DESCRIPTION (test y9darLVgGGBugEZhLpXjHQ code = 3366) XzARTth8tdLJOapUQtJuFo MzNcZnRuYmpcdWMxXGRlZm Pdq8fzh478sCXnv9qcIILq FtA9zHGgJLHnhXSzW303x5 xbz7gqilCzgIM7SBSrWJE7 HUtarhFuhcT6NGvwmDRwAh X7EOapwfGfDXmeimSouhFu Tfe0CZEsU904LDG8bYsbd4 wbUJM2AVBsISMxQeQqUy7l yJVxO454OQWtXYDWQPSlyK r7FTFkqiOuzzCeuWQAd736 O697z2ksCAFbbgOktRbLqw ear9yxI248XUOebBVztfJy ZiVbIKLwfIKyqEG6PPZnNU 2qrgzdWeIbWV8tpkknNzTv PN1ibwj4QtSjID0satqnEl ZkRTmmRNVeovutVHYvj0Cr nmcyFR5rW7Tgp9H1hW4lzR FtSTYpwMAxPhOaMSXmjr7z cRJlGVcii8CnHUB4yvM4pU PorRTcGCIhYF10Vbwkb2Sx ZslbKNJ1QLZufvKnz7Yof4 fwWlKqmzYtX4xwF8WvPECe MLUlRLUeSiCxngSyq3Uwe1 OliHGseRf4q3pdOTUjUREc nJvme2kkJVQ5HSQfM7Q1tI Onu2qmPJesNALreKM3ohfm IAifFKQxsfC5mjsgSJsxKL MxtSB9abrsEWrbSRAlWmD5 yldeWIbeQXApMHB3MPywf5 55RQV1JWyqBxwpYXzmCHLe bmNvbnRccGduZGVjXHBsYW luXHBsYWluXGYwXGZzMjRc eBlldJjaaR7bYzGqYaSdKG ezJY0hNJKcH1kqfNQtSNZl ZZQwC5skMeLekN9nvLizQF yqllQiPCBrO4FlnuGfHKyy TBXjju0upIdcJNudKxIhGH Qqy8p6lUW0xPNhaVG2wRDb cCmtEW6fqFDcQBZvU0Eth2 mwppVsyE6iMZRiUF4bZKJb GEJ2yswlMIKrj6SnfTXfVM JlIDMgdGFuLXBpbmsgdGlz v4ZfRVWrFHgkIT76bkNmZB FpmGDsgdeycVMpkH0sVF1l RXCiLRepISjtFYN8AEA5QF KqzPDje0xlirP7yMmpvVTw qyPzGurbtRRaBPFdDE8aZE C7Ds6urYQnTXIrkbX2x8Qr IGluIEExLlxwYXJccGFyIF WjxESjXFWtX5AxmEqhnjof TINcRTSLM1WtJ70xzKCzaN == MICROSCOPIC DESCRIPTION w1jlwQYxXUKvrBZxSoIdAZ (test code = 3371) ElJTSpe4epJKWkkEGvNmVx MzNcZnRuYmpcdWMxXGRlZm Pav0pcj432bQCab7sqNOQs IrY1mMWaTHYyrWPjF372d3 nfi2bkbzTjtRG3VRUzYAY0 RUtxpbDsqfN0VXljlJGoTa A5MZdnurYjDElmrtSdstRj Ebr7CPFqA195AAS5aGcud6 khNZE8ORXkDCLbPcJjQj1s bLRuS114CNIkGNKIFZJmcJ y1UIVvbjGhreFybQFSh908 P256b3nnQJWwtjVbvLtOnr rxq3huY914SMTnvAAyxnMl XoEjSVBmgGXxaXX9HZAsHE 2ebcxiEsIfGA2unryfWqFx TG2mosp3VbUnLO6jhopoVp EuLElxYCWvqnplTNSme0Ed vobtJX5oJ0Zdq0X5yO8yvQ XmGXYraZOsQuRzYQNtxs0a pGJmIWfrf6FoQXO9mbN3hT EsiMYkJMPsTN29Quqvh5Nm VbebYTY1MZZhpuNwg1Wsm3 cxXaKqxtShK6qvW7KjEJXu JOPdOYHzVaNaebSzw4Lvk4 ZexDPjuAq4h4qgVQQuJYUk kAxzm0uaCMU3NCFwL7E8kQ Rhl5akSQbqPWShlAE1lxnt TLzkDGIazzJ0gtuwSLpjES CoxPS4nkyoVEumVTGkYoX0 bpqjTAvmOYQjHWO7PMzbg1 40AWZ6GPuxLflbYVhnHPWo bmNvbnRccGduZGVjXHBsYW luXHBsYWluXGYwXGZzMjRc fAttyDbkvG5yTmKnJdLpEK khHK4zVGCoL9jfjVRmESMy RYDlB8zsNgIfcU5caGrmMP vajlXeFYDRDbIRYm9AXX3v cGFyfQ== SPECIAL STUDIES (test b7tuaUAvBIDpvDRpBgHaGU code = 3376) WkEQWxx4yhAOXenAGgIiDg MzNcZnRuYmpcdWMxXGRlZm Qst3gll194wVYbo0hdMLDb WeD3qLHlXMLsdNLpY257TZ DjIKeik7ckw6FuFFGavIAf w5M5QRXYUZjnQjCjC605KX VaVAorq9whh5VuLCAxqVVg x2B8QDSUdhuxpCd6vKunA0 2ph9Q0CkhxS0gcKAUaDZAd G8ZxDU6uOFDsHrx9VSD8IP V0CUWnDANdG8KxJS0bRCPe kBCiWZt5q5jutKtuTBClZF J4y3bwNQrdygY8AN5uvj1l hFa7p3xlhnTjRIMfVHUtqK MKQXPjR9QivVqdGu5cnHe2 f1mtGiehdgM8bBMdSlUyYs MyMFxsaTBccmkwIENvUGF0 nJYRUMt9O271u1jtGCRbog OvjYsCttiom4ihD682UENs cGVydzEyMjQwXHBhcGVyaD K6YFXsTC2cekbpUdTdCU6e bkxbDtYeRO5hbis6TdLeER 1hcmdiNzIwXGhlYWRlcnkw UFQwz5QqyoinKX7aF4Dth8 V8qB2amKKcBSVepNAdNwMl NLHkme5hbZRnNQxeCJI3PH KrnvZoe7Lfv7fgTxJdwgBe G5jqN8LfOOFjJRRnDLXeXx TjrfXbc5Orx2NerXByoRh5 k1vgEQLlAWRnvLkgn4ztHN M3KTSdB8V8lLDzr9oeGVwp RZQpeHZ8smwtRWpnUUUzbh R4obpxIBqnOSHquGR6hpkd TJmjSWUrLnL6orheKOkxEQ FfAOP2GUtrs547VAV3ECmv YmtwYWdlXHBnbmNvbnRccG duZGVjXHBsYWluXHBsYWlu XGYwXGZzMjRccWxccGxhaW 6pViErRaEhOipcQE5uFERn R7nrmDTyUJBjAFCvP2quJp JrpB6otTqhLTpeBaKjPwDp AlRAdTEtzF65FBMpufZ5BP Jky13sw7XpaBfbagUiMTIk AGrmC3j3VUAcTGFfLOD2n5 Vtw0UkiF6znH7ocYovrQ0d rHNviEC7lqyjj8Dwp0ZmD3 lhbCBzdGFpbnMuXHBsYWlu XGYxXGZzMjJcbGFuZzEwMz NcaGljaFxmMVxkYmNoXGYx BXvfU6shVtGvF5RzYSWlRo VdnCLdD2xyqCCoHNIuEMgi XGYxXGZzMjJcbGFuZzEwMz NcaGljaFxmMVxkYmNoXGYx JWxvB8hiTuWlA1VyMOUcBg DdMfiCW1aaGLWzBPqNYcPP YO3rG5JZGlMGTFQEKMnSV5 8QMFFQJCDvLH2XOM2NU7LN FF9bKKPiIKwcFMJmHRZfQr JcbGFuZzEwMzNcaGljaFxm OCcfDkYlMXUbHZnqI2vcQa JwH8AiQNXqLcNzxPJdC1nk cGFyXHBsYWluXGYxXGZzMj JcbGFuZzEwMzNcaGljaFxm LDvdHiZdQCTkPXlrB1ydRa JwZ8QqDIHlSlDdQ38imRSe bCBTbGlkZXMgRXhhbWluZW P6EEOJgf0ri4BgFYSbcb02 unEps3UufSp6NONep443nw 7zslL5GGVeNQP6OLv2RTLz MMMfiT5bPmS6wAPwAWVnGJ S0BGA3BGWfu1U5WX7gUCWg HFDcAOGjwySpb9ifd6uhRP EaPIT1onPkkJ1yR1KvCPCf e7NgvUuoEJDlcLeeldXqJF RjhMBcOTZqvJ06CGPcoVBy bUNzPWByLXS6KAppjM7mTl GHbyCnxi9qvSJwu3QtpPr2 ZSBhbmQgbmVnYXRpdmUgY2 8daMAdcOMrt8eizkUpiwDv nFLnjSTfLAMqDLM5PAq4IT RlZFxwbGFpblxmMVxmczIy BZubdhoaZWHrUHtsO9zvQa WnAKZetEmyMCtjk3TyCTOi BAAwOciedjNfMQx9lpMrCV BhclxwbGFpblxmMVxmczIy EIirflzvJWBdCCjbO7joDa JoSCZonBwpTVlfy8ZoFTEi XGNmMlxmczIyICBccGxhaW 3wXzIeHiLuSfgeKS9qQWTu M3ejdMLsGORpZYOrS6avZq KtcN8evEyuRPveBdWcVlSi MlxsdHJjaFxwYXJccGxhaW 0bBjJiFuTcIihnRY8mDEYq R8fozMAmXFOmSMNoY3gpPn OjrY5reOjnMIebQiCsPgKa OlINwN35by7djUD4c6HrHK 9ll7QpxRV8DYDuqluqYMch sZYesIovJfF3OZYfgVEjEb 3bjSUrPZO3ZDHxkIbmlvUZ aH7bVSSrONyjaHNuhyknPX xmczIyXGxhbmcxMDMzXGhp U7hlCcCxKWVvhJkkMXrwn2 NoXGYxXGNmMlxmczIyXHU4 PyO3YCehIAOldJkidB8fXc NxXtJwUkqaBT8hBKTuI3cx oSJlMIEkHBPoL2jeViGhgT 9jaFxmMVxjZjJcZnMyMiBz ET3qDPaoVGpgK3TntXXxAH IXKQBuo1ltJ9pwLFEax8Ov bM7pcME4bQMgDZYbuXQ8OH MoYOJ8QZtbrKMfWQYmLCDr wVIdoQWiBl3idEQtE6TaD2 cauqKxtUZvsPE9sVLxCPra sbLeRDI6PSFdiE0uLC8hLN BfxZSjLH1ylRLcCLHhKTLf WEHgDNWgx9NfDUYids06YI BrNecilTysKNGcCx3aEm8w OJDsowChJPI1QlQETM7nho xayTZpjRodzf8hJJfyTFOI PSZtTMCfXMB0SPAdcY6oLV H9jSW5SPB3I4vyE0whAIXs diPfGD8sDPUqeLAmxzRpOH mkPY0hwRDkWZKrt2Fcsalo TNMbXWT2IJQ7DQfhRSZlVV YiYd1aUESmoR6oR3UdXXX5 isCjg8NxBmKAnJEmmO81uS Bauj90RUZdDMBiP1UgNIHg IGFzIGludmVzdGlnYXRpb2 5tlCGclgTup6RdmbUxWARv K1zqBUCwkNCadTHvs1JkaA 5pfMEseoMsOAT9kBPdRCXb dC9qNOAmzTqaFYRtuI5lO1 ZvZGlgKw5iUPFonfxcPT8w wu06UV3mcpKgGZ8hpnHyRH 84sdQoXgUqKEy0MJuLYJbE JIu4KOYmojDouSQujKJtGL NmtU7kpHBwYh7zhUKzzXhc EOTfkPZnQHtyfMnwS8rasm hrDJhujVDsg0UccY3kzUC8 XEX8kA5aLknafCFpgeyxMd xmczIyXGxhbmcxMDMzXGhp L7tzFnYuTWGmeQuvQumdx6 NoXGYyXGZzMjJccGFyXHBh pxIefZwsrU1oDvBtWfVhKY cytBEqyerqZpxlfvM0WBSq cn0= Gross assessment was [facility] performed at ([facility], = 2777) Department of Pathology, [address] [place] [address], Technical component was [facility] performed at ([facility], = 2778) Department of Pathology, [address] [place] [address], Professional component [facility] was performed at ([facility], code = 2779) Department of Pathology, [address] [place] [address], [facility] [id number] 10:48:00Surgical Pathology Report Case: [id number] Authorizing Provider: David Alfredd, Collected: 01/17/2020 05:03 PM OrderingLocation: [address] Received: 01/18/2020 09:09 AM Service Pathologist: [...] REPORT TO FOLLOW.Signing Pathologist Direct Phone Line: [phone] signed by Wayne Mcadams MD on 01/18/2020 at 4:47 [id number], [id number] BLEEDGastric biopsyReceived in formalin labeled withthe patient's [...] laboratory testing.[facility], Department of Pathology, [address] [place] [address], [place] [address], [facility], Department of Pathology, [address] [place] [address], [facility], Department of [facility]ology, [address] [place] [address], Hmzwsp doppler arm, right 2020-01-19 11:48:48Ejection FractionSLEH ECHO [...] Date of Study 01/18/2020 Age 74 VisitNumber [id number] Gender Male Accession Number [id number] Date of 1945 Referring Thao M Room Number 1023 Physician Zuri Can Dryer Wyatt Gonzalez Interpreting BEBA Portillo Physician ProcedureType [...] in cm/s ; Di[facility] [id number] 04:55:00 Test Item Value Reference Range Interpretation [...] (test code = 7.7 mg/dL 8.4-10.2 L 79003-4) EGFR (test code = 118 mL/min/1.73 [place] [address]-5) NOT ACCURATE CREATININE CLEARANCE IN PREDICTING GLOMERULAR FILTRATION RATE . ESTIMATED GFR I S NOT APPLICABLE FOR DIALYSIS PATIENTS. BEAR (test code = BEAR) Experimental Display Builder ID - AYAZ W Lab Interpretation Abnormal (test code = 67655-1) [facility] 04:55[facility]00 Test Item Value Reference Range Interpretation Comments Magnesium (test code = 2.2 mg/dL 1.6-2.6 13519-0) BEAR (test code = BEAR) Experimental Display Builder ID - AYAZ W Lab Interpretation (test Normal code = 53866-8) [facility] 04:[facility]00 Test Item Value Reference Range Interpretation Comments MAGNESIUM (BEAKER) (test code = 2.2 mg/dL 1.6-2.6 627) Experimental Display Builder ID - AYAZ WBASIC METABOLIC [id number] 04:55:00 Test Item Value Reference Range Interpretation [...] S NOT APPLICABLE FOR DIALYSIS PATIEN TS. Experimental Display Builder ID - AYAZ WCBC with platelet count + automated [id number] 04:31:00 Test Item Value Reference Range Interpretation Comments WBC (test code = 6690-2) 5.6 See_Comment [A utomated message] The system [employer] generated this result transmitted ref erence range: 3.5 - 10 .5 K/L. The refe rence range was not u sed to interpret this result as normal/abnor mal. RBC (test code = 789-8) 2.50 See_Comment L [Au tomated message] The system [employer] generated this result transmitted ref erence range: 4.63 - 6 .08 M/L. The refe rence range was not u sed to interpret this result as normal/abnor mal. MCHC (test code = 786-4) 32.0 See_Comment L [A utomated message] The system [employer] generated this result transmitted ref erence range: 32.3 - 3 6.5 GM/DL. The refe rence range was not u sed to interpret this result as normal/abnor mal. Hematocrit (test code = 23.1 % 40.1-51 L 4544-3) MCV (test code = 787-2) 92.4 fL 79-92.2 H MCH (test code = 785-6) 29.6 pg 25.7-32.2 RDW (test code = 788-0) 16.9 % 11.6-14.4 H Platelets (test code = 156 See_Comment [Aut omated message] 987-3) The system [employer] generated this result transmitted ref erence range: 150 - 45 0 K/CU MM. The referen ce range was not u sed to interpret this result as normal/abnor mal. MPV (test code = 11.9 fL 9.4-12.4 04615-8) nRBC (test code = 413) 0 See_Comment [Aut omated message] The system [employer] generated this result transmitted ref erence range: 0 - 0 /1 00 WBC. The refere nce range was not u sed to interpret this result as normal/abnor mal. % Neutros (test code = 73 % 429) % Lymphs (test code = 13 % 430) % Monos (test code = 9 % 431) % Eos (test code = 432) 2 % % Baso (test code = 437) 0 % # Neutros (test code = 4.11 See_Comment [Aut omated message] 670) The system [employer] generated this result transmitted ref erence range: 1.78 - 5 .38 K/L. The refe rence range was not u sed to interpret this result as normal/abnor mal. # Lymphs (test code = 0.74 See_Comment L [Auto mated message] 414) The system [employer] generated this result transmitted ref erence range: 1.32 - 3 .57 K/L. The refe rence range was not u sed to interpret this result as normal/abnor mal. # Monos (test code = 0.53 See_Comment [Autom ated message] 415) The system [employer] generated this result transmitted ref erence range: 0.30 - 0 .82 K/L. The refe rence range was not u sed to interpret this result as normal/abnor mal. # Eos (test code = 416) 0.12 See_Comment [Au tomated message] The system [employer] generated this result transmitted ref erence range: 0.04 - 0 .54 K/L. The refe rence range was not u sed to interpret this result as normal/abnor mal. # Baso (test code = 417) 0.02 See_Comment [A utomated message] The system [employer] generated this result transmitted ref erence range: 0.01 - 0 .08 K/L. The refe rence range was not u sed to interpret this result as normal/abnor mal. Immature 2 % 0-1 H Granulocytes-Relative (test code = 2801) Lab Interpretation (test Abnormal code = 70457-3) [facility] W/PLT COUNT & AUTO [id number] 04:31:00 Test Item Value Reference Range Interpretation [...] PERCENT (BEAKER) (test code = 2801) Prothrombin time/THP0070-05-20 04:30:00 Test Item Value Reference Interpretation Comments Range Protime (test code = 15.3 See_Comment H [Autom ated 5902-2) message] The system which generated this result transmitted reference range : 11.9 - 14.2 seconds. The reference range was not used to interpret this result as normal/abnormal . INR (test code = 1.2 See_Comment [Automated 6301-6) message] The system which generated this result transmitted reference range : <=5.9. The reference range was not used to interpret this result as normal/abnormal . BEAR (test code = Effective 12/31/2018: BEAR) PT Reference Range ChangeNew: 11.9-14.2 Previous: 11.7-14.7 RECOMMENDED COUMADIN/WARFARIN INR THERAPY RANGESSTANDARD DOSE: 2.0-3.0 Includes: PROPHYLAXIS for venous thrombosis, systemic embolization; TREATMENT for venous thrombosis and/or pulmonary embolus.HIGH RISK: Target INR is 2.5-3.5 for patients wiht mechanical heart valves. Lab Interpretation Abnormal (test code = 55538-0) [facility] DiegoPROTHROMBIN TIME/[id number] 04:30:00 Test Item Value Reference Range Interpretation [...] for patients wiht mechanical heart valves.Prepare Leuko-Red [id number] 23:54:00 Test Item Value Reference Range Interpretation Comments CROSSMATCH (test code = 2264) COMPATIBLE Unit ABO (test code = B Pos 5910844) UNIT NUMBER (test code = [id number] 934-0) Status (test code = 6304967) [place]_TIMEINCHART Blood Bank Product (test code RED BLOOD CELLS = 2263) PRODUCT CODE (test code = G8920S93 933-2) [facility] DiegoECG 12 jfnh2477-39-47 10:52:57Interface, External Ris In - 01/18/2020 10:53 AM CDTVentricular Rate 84 BPMAtrial Rate 84 BPMP-R Interval 228 msQRS Duration 86 msQ-T Interval 414 msQTC Calculation(Bazett) 489 msP [place] 89 degreesR [place] 40 degreesT [place] 35 degreesSinus rhythm with 1st degree A-V blockNonspecific ST abnormalityProlonged QTAbnormal ECGNo previous ECGs availableConfirmed by MD HARRIETT, ROULA ([id number]) on 01/18/2020 10:52:55 AM [facility] DiegoMAGNESIUM2020-06-15 05:53:00 Test Item Value Reference Range Interpretation Comments MAGNESIUM (BEAKER) (test code = 2.4 mg/dL 1.6-2.6 627) Experimental Display Builder ID - PIAYA LBASIC METABOLIC [id number] 05:53:00 Test Item Value Reference Range Interpretation [...] S NOT APPLICABLE FOR DIALYSIS PATIEN TS. Experimental Display Builder ID - PIAYA LPROTHROMBIN TIME/[id number] 05:26:00 Test Item Value Reference Range Interpretation [...] mechanical heart valves.CBC W/PLT COUNT & AUTO [id number] 05:15:00 Test Item Value Reference Range Interpretation [...] = 2801) CBC W/PLT COUNT & AUTO [id number] 12:38:00 Test Item Value Reference Range Interpretation [...] (BEAKER) (test code = 2801) Hemoglobin and poldfniykj2124-76-66 05:57:00 Test Item Value Reference Range Interpretation Comments Hemoglobin (test code 6.2 See_Comment L [Auto mated = 786-4) message] The system which generated this result transmit kellee reference range : 13.7 - 17.5 GM/ DL. The reference range was not u sed to interpret th is result as normal/abnormal . Hematocrit (test code 19.3 % 40.1-51 L = 4544-3) BEAR (test code = BEAR) Experimental Display Builder ID - [id number] Lab Interpretation Abnormal (test code = 74728-0) [facility] DiegoHEMOGLOBIN AND [id number] 05:57:00 Test Item Value Reference Range Interpretation Comments HEMOGLOBIN (BEAKER) (test code = 6.2 GM/DL 13.7-17.5 L 410) HEMATOCRIT (BEAKER) (test code = 19.3 % 40.1-51.0 L 411) Experimental Display Builder ID - [id number] B12 and Kjcais3579-75-14 05:35:00 Test Item Value Reference Range Interpretation Comments Vitamin B12 (test >2000 213-816 H code = 2132-9) Folate (test code = 14.20 ng/mL See_Comment [Automa ekllee 2284-8) message] The system which generated this result transmit kellee reference range : >=7.00. The reference range was not used to interpret this result as normal/abnormal . BEAR (test code = BEAR) Experimental Display Builder ID - MARVA L Lab Interpretation Abnormal (test code = 97131-4) [facility] DiegoVITAMIN B12 AND [id number] 05:35:00 Test Item Value Reference Range Interpretation Comments VITAMIN B12 (BEAKER) (test code = > pg/mL 213-816 H 774) FOLATE (BEAKER) (test code = 362) 14.20 ng/mL >=7.00 Experimental Display Builder ID - MARVA OAarkkqbl3276-77-52 05:27:00 Test Item Value Reference Range Interpretation Comments Ferritin (test code = 947.60 ng/mL 5-275 H 2276-4) BEAR (test code = BEAR) Experimental Display Builder ID - MARVA L Lab Interpretation (test Abnormal code = 72743-4) [facility] DiegoFERRITIN2020-06-14 05:27:00 Test Item Value Reference Range Interpretation Comments FERRITIN (BEAKER) (test code = 947.60 ng/mL 5.00-275.00 H 361) Experimental Display Builder ID - MARVA LHEMOGLOBIN AND [id number] 03:47:00 Test Item Value Reference Range Interpretation Comments HEMOGLOBIN (BEAKER) (test code = 5.3 GM/DL 13.7-17.5 LL 410) HEMATOCRIT (BEAKER) (test code = 16.1 % 40.1-51.0 L 411) Experimental Display Builder ID - [id number] TIME/[id number] 03:38:00 Test Item Value Reference Range Interpretation [...] INR is2.5-3.5 for patients wiht mechanical heart valves.Gckkitsiaeq6845-34-19 02:11:00 Test Item Value Reference Range Interpretation Comments Haptoglobin (test code = 277 mg/dL 14-258 H 4542-7) BEAR (test code = BEAR) Experimental Display Builder ID Jose DURHAM L Lab Interpretation (test Abnormal code = 52445-9) [facility] DiegoHAPTOGLOBIN2020-06-14 02:11:00 Test Item Value Reference Range Interpretation Comments HAPTOGLOBIN (BEAKER) (test code = 277 mg/dL 14-258 H 366) Experimental Display Builder ID Jose Hicks, TIBC, % sat. (without ferritin)2020-01-17 02:10:00 Test Item Value Reference Range Interpretation Comments Iron (test code = 2498-4) 38.0 ug/dL 40-160 L TIBC (test code = 2500-7) 151 ug/dL 250-450 L Iron % Saturation (test 25 % 20-55 code = 2502-3) BEAR (test code = BEAR) Experimental Display Builder ID Jose DURHAM L Lab Interpretation (test Abnormal code = 23406-2) [facility] DiegoIRON, TIBC, % SAT. (WITHOUT FERRITIN)2020-01-17 02:10:00 Test Item Value Reference Range Interpretation Comments IRON (BEAKER) (test code = 547) 38.0 ug/dL 40.0-160.0 L TOTAL IRON BINDING CAPACITY 151 ug/dL 250-450 L (BEAKER) (test code = 769) IRON % SATURATION (2) (BEAKER) 25 % 20-55 (test code = 2590) Experimental Display Builder ID - PETEYHUE KRISTEN, epvmoa8664-05-19 02:00:00 Test Item Value Reference Range Interpretation Comments ABO Grouping (test code = 2588) B Rh Factor (test code = 2589) POS [facility] DiegoType and screen, bvpykcely8766-20-48 01:59:00 Test Item Value Reference Range Interpretation Comments ABO/RH AUTOMATED (BEAKER) (test B POSITIVE code = 2260) Ab Scrn (test code = 890-4) NEGATIVE [facility] DiegoHepatic function [id number] 01:50:00 Test Item Value Reference Range Interpretation Comments Protein, Total (test 5.8 See_Comment L [Autom ated code = 2885-2) message] The system which generated this result transmit kellee reference range : 6.0 - 8.3 gm/dL . The reference range was not u sed to interpret th is result as normal/abnormal . Albumin (test code = 2.7 g/dL 3.5-5 L 54572-7) Total Bilirubin (test 0.6 mg/dL 0.2-1.2 code = 1975-2) Bilirubin, Direct 0.4 mg/dL 0.1-0.5 (test code = 1968-7) Alkaline Phosphatase 71 U/L 40-150 (test code = 6768-6) AST (test code = 40 U/L 5-34 H 1920-8) ALT (test code = 26 U/L 6-55 1742-6) BEAR (test code = BEAR) Experimental Display Builder ID - PIAYA L Lab Interpretation Abnormal (test code = 94543-7) [facility] DiegoLactate dehydrogenase (LDH)2020-01-17 01:50:00 Test Item Value Reference Range Interpretation Comments LDH (test code = 2532-0) 484 U/L 125-220 H BEAR (test code = BEAR) Experimental Display Builder ID - PIAYA L Lab Interpretation (test Abnormal code = 61433-1) [facility] DiegoHEPATIC FUNCTION [id number] 01:50:00 Test Item Value Reference Range Interpretation [...] (test code = 26 U/L 6-55 347) Experimental Display Builder ID - MARVA LLACTATE DEHYDROGENASE (LDH)2020-01-17 01:50:00 Test Item Value Reference Range Interpretation Comments LACTATE DEHYDROGENASE (BEAKER) (test 484 U/L 125-220 H code = 635) Experimental Display Builder ID - MARVA [id number] 01:50:00 Test Item Value Reference Range Interpretation Comments MAGNESIUM (BEAKER) (test code = 2.4 mg/dL 1.6-2.6 627) Experimental Display Builder ID - MARVA LBASIC METABOLIC OIQJR8528-01-25 01:50:00 Test Item Value Reference Range Interpretation [...] S NOT APPLICABLE FOR DIALYSIS PATIEN TS. Experimental Display Builder ID - MARVA LSARS-COV2/RT-PCR ([facility])2020-01-17 01:38:00 Test Item Value Reference Range Interpretation Comments SARS-COV2/RT-PCR (test Not Detected Not Detected, Negative code = 6436245) SARS-COV-2 PERFORMING LAB [facility] (test code = 6104597) Negative results do not preclude SARS-CoV-2 infection [...] of the Act.Fact Sheet for Healthcare Pro viders:https://www.[employer].THEVA/Documents/Xpert%20Xpress%20SARS%20CoV-2/Fact%20Sh eets/302-3802%68IPID-BVW-5%20HEALTHCARE%20PROVIDERS%20FACT%20SHEET.pdfFact Sheet for Healthcare Patients:https://www.[employer]/Documents/Xpert%20Xpress%20SARS%20CoV-2/Fact%20Sheets/302-3801%20SARS-COV -2%20PATIENT%20FACT%20SHEET.pdfPerforming Laboratory:[facility] [place], [place] [address]janina RicoSan [place], [place] [address]LX/[id number] 01:24:00 Test Item Value Reference Interpretation Comments Range Protime (test code = 16.5 See_Comment H [Autom ated 5902-2) message] The system which generated this result transmitted reference range : 11.9 - 14.2 seconds. The reference range was not used to interpret this result as normal/abnormal . INR (test code = 1.4 See_Comment [Automated 1641-6) message] The system which generated this result transmitted reference range : <=5.9. The reference range was not used to interpret this result as normal/abnormal . PTT (test code = 31.0 See_Comment [Automated 91781-8) message] The system which generated this result transmitted reference range : 22.5 - 36.0 seconds. The reference range was not used to interpret this result as normal/abnormal . BEAR (test code = Effective 12/31/2018: BEAR) PT Reference Range ChangeNew: 11.9-14.2 Previous: 11.7-14.7 RECOMMENDED COUMADIN/WARFARIN INR THERAPY RANGESSTANDARD DOSE: 2.0-3.0 Includes: PROPHYLAXIS for venous thrombosis, systemic embolization; TREATMENT for venous thrombosis and/or pulmonary embolus.HIGH RISK: Target INR is 2.5-3.5 for patients wiht mechanical heart valves. Lab Interpretation Abnormal (test code = 24726-7) [facility] DiegoPT/[id number] 01:24:00 Test Item Value Reference Range Interpretation [...] is2.5-3.5 for patients wiht mechanical heart valves.Reticulocyte itfoo0369-53-56 01:20:00 Test Item Value Reference Range Interpretation Comments % Retic (test code = 4.9 % 0.5-1.8 H 27235-9) BEAR (test code = BEAR) Experimental Display Builder ID - [id number] Lab Interpretation (test Abnormal code = 66680-1) [facility] DiegoCBC W/PLT COUNT & AUTO [id number] 01:20:00 Test Item Value Reference Range Interpretation [...] PERCENT (BEAKER) (test code = 2801) RETICULOCYTE [id number] 01:20:00 Test Item Value Reference Range Interpretation Comments RETICULOCYTE COUNT PCT (BEAKER) (test 4.9 % 0.5-1.8 H code = 575) Experimental Display Builder ID - [id number]
[2020-10-30 21:33] LABS: Absolute Lymphocytes (CBC) 0.5 K/uL (0.7-4.9); Basophils % 0.6 % (0-1.3); Hematocrit 37.2 % (39.6-49.0); Lymphocytes % 8.8 % (15.3-44.8); RBC Red Blood Cell Count 3.79 M/uL (4.33-5.43)
[2020-10-30 21:36] LABS: Protime INR 1.03
[2020-10-30 21:48] LABS: Albumin 4.2 g/dL (3.4-5.0); Bilirubin Direct 0.3 mg/dL (0-0.2); Bilirubin Total 1.3 mg/dL (0.2-1.0); Potassium 4.3 mmol/L (3.5-5.1); Protein, Total 8.5 g/dL (6.4-8.2); Troponin (Emerg Dept Use Only) 0.06 ng/mL (0.0-0.045)
[2020-10-30 22:28] LABS: Blood Morphology Comment NOT SEEN (NOT SEEN); Hypersegmented Neutrophils 2+; Platelet Estimate DECR
[2020-10-31] MEDS ORDERED: LEVETIRACETAM 500 MG/5 ML VIAL IV ONE (00:47)
[2020-10-31] MEDS ORDERED: NA CHLORIDE 0.9% 100 ML ONE (00:47)
[2020-10-31 01:53] LABS: Urine Blood 1+ (Negative); Urine Glucose NEGATIVE (Negative); Urine Protein 1+ (NEG); Urine pH 6.5 (5.0-7.0)
--- NOTE | 2020-10-31 02:14 | EDPHYS ---
Physician Documentation [facility] Name: Hoang Camacho Age: 74 yrs Sex: Male : 1945 Arrival Date: 10/30/2020 Time: 20:50 Bed 5 Private MD: ED Physician Rao Villaseñor HPI: 10/30 23:02 This 74 yrs old Black Male presents to ER via EMS with complaints of Fall. mh7 23:02 Details of fall: The patient fell from an upright position, while walking. Onset: The mh7 symptoms/episode began/occurred today, Multiple times over the past week. Associated injuries: The patient sustained bilateral knees, abrasion, contusion, ecchymosis. Severity of symptoms: At their worst the symptoms were moderate, earlier today, in the emergency department the symptoms have improved, moderately. Per EMS patient has had multiple falls over the past week. Family reported speech problems started about a week ago. Patient states he has fallen due to legs giving out. Denies any symptoms prior to falling. Denies head injury or LOC.. Historical: - Allergies: 21:03 Amoxicillin; sf - Home Meds: 10/31 00:13 flecainide 50 mg oral tab 1 tab every 12 hours [Active]; allopurinol 100 mg Oral tab 1 sf tab once daily [Active]; Flomax 0.4 mg Oral cp24 1 cap once daily [Active]; - PMHx: 10/30 21:03 LYMPHOMA; Hypertension; Atrial Fib; sf - PSHx: 21:03 Unable to obtain; sf - Immunization history:: Adult Immunizations up to date, Client reports receiving the 2nd dose of the Covid vaccine, Reports about 2 weeks ago by daughterBebo. - Social history:: Smoking status: Patient denies any tobacco usage or history of. Patient/guardian denies using alcohol, street drugs, IV drugs. - Immunization history: Last tetanus immunization: unknown. ROS: 23:02 Constitutional: Negative for fever, chills, and weight loss, Eyes: Negative for injury, mh7 pain, redness, and discharge, ENT: Negative for injury, pain, and discharge, Neck: Negative for injury, pain, and swelling, Cardiovascular: Negative for chest pain, palpitations, and edema, Respiratory: Negative for shortness of breath, cough, wheezing, and pleuritic chest pain, Abdomen/GI: Negative for abdominal pain, nausea, vomiting, diarrhea, and constipation, Back: Negative for injury and pain, : Negative for injury, bleeding, discharge, and swelling, Neuro: Negative for headache, weakness, numbness, tingling, and seizure, Psych: Negative for depression, anxiety, suicide ideation, homicidal ideation, and hallucinations, Allergy/Immunology: Negative for hives, rash, and allergies. Exam: 23:02 Constitutional: This is a well developed, well nourished patient who is awake, alert, mh7 and in no acute distress. Head/Face: Normocephalic, atraumatic. Eyes: Pupils equal round and reactive to light, extra-ocular motions intact. Lids and lashes normal. Conjunctiva and sclera are non-icteric and not injected. Cornea within normal limits. Periorbital areas with no swelling, redness, or edema. ENT: Nares patent. No nasal discharge, no septal abnormalities noted. Tympanic membranes are normal and external auditory canals are clear. Oropharynx with no redness, swelling, or masses, exudates, or evidence of obstruction, uvula midline. Mucous membranes moist. Neck: Trachea midline, no thyromegaly or masses palpated, and no cervical lymphadenopathy. Supple, full range of motion without nuchal rigidity, or vertebral point tenderness. No Meningismus. Chest/axilla: Normal chest wall appearance and motion. Nontender with no deformity. No lesions are appreciated. Cardiovascular: Regular rate and rhythm with a normal S1 and S2. No gallops, murmurs, or rubs. Normal PMI, no JVD. No pulse deficits. Respiratory: Lungs have equal breath sounds bilaterally, clear to auscultation and percussion. No rales, rhonchi or wheezes noted. No increased work of breathing, no retractions or nasal flaring. Abdomen/GI: Soft, non-tender, with normal bowel sounds. No distension or tympany. No guarding or rebound. No evidence of tenderness throughout. 23:02 Back: pain, is absent, ROM is normal, normal spinal alignment noted, CVA tenderness, is absent, vertebral tenderness, is not appreciated, muscle spasm, is not present, small area of ecchymosis on upper middle back, no tenderness. 23:02 Musculoskeletal/extremity: Extremities: noted in the bilateral knees, left foot: contusion, ecchymosis, tenderness, ROM: intact in all extremities, Circulation is intact in all extremities. Pulses: are normal with no appreciated deficits, Perfusion: the patient is normally perfused throughout, Perfusion: the extremity is normally perfused throughout, Sensation intact. Compartment Syndrome exam of affected extremity: is normal. no numbness, no tingling, no sensation deficit, no palor, no weak pulses, Joints: the left knee and right knee displays tenderness. 23:02 Skin: injury, abrasion(s), small abrasion noted, of the bilateral knees, contusion(s), that are superficial, of the bilateral knees. 23:02 Neuro: Orientation: is normal, Mentation: is normal, Memory: is normal, Cranial nerves: facial droop noted on left, with forehead involved. Motor: strength is 5/5 in the right arm, Strength is 3/5 in the left arm, Sensation: no obvious gross deficits, Gait: not tested. seizure activity, is not displayed by the patient, Abnormal movements: there are no abnormal movements. 23:43 Psych: Awake, alert, with orientation to person, place and time. Behavior, mood, and mh7 affect are within normal limits. Vital Signs: 20:57 BP 147 / 70; Pulse 84; Resp 18; Temp 98.6; Pulse Ox 98% ; Weight 94.35 kg; Height 6 ft. sf 1 in. (185.42 cm); Pain 0/10; 21:00 BP 129 / 55; Pulse 81; Resp 16; Pulse Ox 100% ; sf 22:34 BP 147 / 92; Pulse 85; Resp 14; Pulse Ox 100% ; Pain 0/10; sf 23:40 BP 145 / 77; Pulse 87; Resp 14; Pulse Ox 100% ; sf 29 00:00 BP 134 / 98; Pulse 93; Resp 14; Pulse Ox 99% ; sf 00:30 BP 140 / 75; Pulse 83; Resp 16; Pulse Ox 100% ; sf 01:00 BP 141 / 88; Pulse 89; Resp 14; Pulse Ox 99% ; sf 01:30 BP 136 / 90; Pulse 98; Resp 14; Pulse Ox 98% ; Pain 0/10; sf 03:00 BP 127 / 68; Pulse 82; Resp 14; Pulse Ox 100% ; sf 10/30 20:57 Body Mass Index 27.44 (94.35 kg, 185.42 cm) sf NIH Stroke Scale Scores: 10/30 21:00 NIHSS Score: 8 sf [place] Coma Score: 20:50 Eye Response: spontaneous(4). Verbal Response: oriented(5). Motor Response: obeys sf commands(6). Total: 15. Trauma Score (Adult): 20:50 Eye Response: spontaneous(1); Verbal Response: oriented(1); Motor Response: obeys sf commands(2); Systolic BP: > 89 mm Hg(4); Respiratory Rate: 10 to 29 per min(4); En Score: 15; Trauma Score: 12 MDM: 10/31 02:12 Differential diagnosis: abrasion, closed head injury, contusion, fracture, laceration, 7 multiple trauma, CVA. Data reviewed: vital signs, nurses notes, EMS record, old medical records, lab test result(s), cardiac enzymes, CBC, electrolytes, EKG, radiologic studies, CT scan, plain films. Data interpreted: Pulse oximetry: on room air is 98 %. Interpretation: normal. Counseling: I had a detailed discussion with the patient and/or guardian regarding: the historical points, exam findings, and any diagnostic results supporting the discharge/admit diagnosis, the presence of at least one elevated blood pressure reading (>120/80) during this emergency department visit, lab results, radiology results, the need to transfer to another facility, for higher level of care, [facility] does not immediately have the required specialist. Response to treatment: the patient's symptoms have markedly improved after treatment. 02:14 Patient medically screened. [facility] 10/30 21:09 Order name: Basic Metabolic Panel [facility] 10/30 21:09 Order name: CBC with Diff [facility] 10/30 21:09 Order name: Type And Screen [facility] 10/30 21:09 Order name: LFT's [facility] 10/30 21:09 Order name: Protime (+inr); Complete Time: 22:52 [facility] 10/30 21:09 Order name: Ptt, Activated; Complete Time: 22:52 [facility] 10/30 21:09 Order name: Troponin (emerg Dept Use Only); Complete Time: 22:52 [facility] 10/30 21:10 Order name: Basic Metabolic Panel; Complete Time: 22:52 [facility] 10/30 21:10 Order name: CBC with Automated Diff; Complete Time: 22:52 [facility] 10/30 21:10 Order name: Type and Screen; Complete Time: 22:52 [facility] 10/30 21:10 Order name: Liver (Hepatic) Function; Complete Time: 22:52 [facility] 10/30 21:27 Order name: NT PRO-BNP; Complete Time: 22:52 [facility] 10/30 21:36 Order name: Manual Differential; Complete Time: 22:52 [facility] 10/30 21:09 Order name: CT Traumagram (Head C Spine CAP W Con) [facility] 10/30 21:09 Order name: Labs collected and sent; Complete Time: 21:24 [facility] 10/30 21:09 Order name: EKG - Nurse/Tech; Complete Time: 21:24 [facility] 10/30 21:09 Order name: Knee Left 3 View XRAY [facility] 10/30 21:09 Order name: Knee Right 3 View XRAY [facility] 10/30 21:09 Order name: Foot Left 3 View XRAY [facility] 10/31 00:07 Order name: Urine Dipstick--Ancillary (enter results) [facility] 10/31 00:21 Order name: COVID-19 : Document "Date of Symptom Onset" if Symptomatic. [facility] 10/31 02:52 Order name: SARS-COV-2 RT PCR EDMS Administered Medications: 00:30 Drug: Keppra 1000 mg Route: IV; Rate: per protocol; Site: right forearm; sf 00:46 Follow up: IV Status: Completed infusion; IV Intake: 100ml sf 01:30 Follow up: Response: No adverse reaction sf Disposition: 10/31/20 02:14 Transfer ordered to [facility]. 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 - Reason for transfer: Higher level of care. - Accepting physician is Dr. Haney. - Condition is Stable. - Problem is new. - Symptoms have improved. NIH Stroke Scale - NIH Stroke Score Date: 10/30/2020 Time: 21:00 Total Score = 8 1a. Level of Consciousness (LOC) - 0(Alert) 1b. Level of Consciousness (LOC) (Year \\T\\ Age) - 0(Both) 1c. LOC Commands (Open \\T\\ Closes Eyes/Outsole Splicer) - 0(Both) 2. Best Gaze (Lateral Gaze Paresis) - 1(Partial gaze palsy) 3. Visual Field Loss - 0(No visual loss) 4. Facial Palsy - 2(Partial paralysis) 5a. Left Arm: Motor (10-second hold) - 1(Drift) 5b. Right Arm: Motor (10-second hold) - 0(No drift) 6a. Left Leg: Motor (5-second hold - always test supine) - 1(Drift) 6b. Right Leg: Motor (5-second hold - always test supine) - 0(No drift) 7. Limb Ataxia (finger/nose \\T\\ heel/miller - test with eyes open) - 1(Present in one limb) 8. Sensory Loss (pinprick arms/legs/face) - 1(Mild to moderate loss) 9. Best Language: Aphasia (description/naming/reading) - 0(No aphasia) 10. Dysarthria (speech clarity - read or repeat words) - 1(Mild to Moderate) 11. Extinction and Inattention (visual/tactile/auditory/spatial/personal) - 0(No abnormality) Initials: Signatures: Dispatcher [employer] [facility] Dania Aggarwal, RN RN 1 Rao Villaseñor MD MD 7 Jamey Arshad RN RN Corrections: (The following items were deleted from the chart) 10/30 21:27 21:12 PROBNP+C.LAB.BRZ ordered. [facility] 10/31 00:13 10/30 23:12 Home Meds: amlodipine 5 mg tab 1 tab once daily; [facility] 10/31 01:36 00:22 CORONAVIRUS ordered. [facility] : 02:14 10/31/2020 02:[address] [facility]. 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 Reason for transfer: Higher level of care. Accepting physician is Dr. Haney. Condition is Stable. Problem is new. Symptoms have improved. 7
--- NOTE | 2020-10-31 02:14 | ER ---
Nurse's Notes 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 2 days ago started having stroke like s/s (left weakness, left facial droop, slurred speech). Today family called EMS for falls x4 since 0900 this morning. Patient denies LOC and injuries with falls. Did not want to come to ED. Coronavirus screen: Client denies travel out of the [place] in the last 14 days. At this time, the client does not indicate any symptoms associated with coronavirus-19. Ebola Screen: Patient negative for fever greater than or equal to 101.5 degrees Fahrenheit, and additional compatible Ebola Virus Disease symptoms Patient denies exposure to infectious person. Patient denies travel to an Ebola-affected area in the 21 days before illness onset. No symptoms or risks identified at this time. Initial Sepsis Screen: Does the patient meet any 2 criteria? No. Patient's initial sepsis screen is negative. Does the patient have a suspected source of infection? No. Patient's initial sepsis screen is negative. Risk Assessment: Do you want to hurt yourself or someone else? Patient reports no desire to harm self or others. Onset of symptoms was October 23, 2020. 20:57 Method Of Arrival: EMS: [facility] sf 20:57 Acuity: ELLIOTT 2 sf 21:07 Care prior to arrival: None. Mechanism of Injury: Fall from standing position. Trauma sf event details: Injury occurred: at home. Triage Assessment: 21:03 General: Appears slender, well groomed, well developed, Behavior is calm, cooperative. sf Pain: Denies pain. EENT: No signs and/or symptoms were reported regarding the EENT system. Neuro: Level of Consciousness is awake, alert, Oriented to person, place, time, situation, Sales Receptionist are weak on left Weakness in left hand(s) arm(s) leg(s) foot/feet Speech is slurred, Facial droop on left, Pupils are PERRLA, Numbness in left arm and left leg Denies headache. Cardiovascular: Patient's skin is warm and dry. Respiratory: No deficits noted. Airway is patent Respiratory effort is even, unlabored, Respiratory pattern is regular, symmetrical. GI: No signs and/or symptoms were reported involving the gastrointestinal system. : No signs and/or symptoms were reported regarding the genitourinary system. Derm: No deficits noted. No signs and/or symptoms reported regarding the dermatologic system. Musculoskeletal: No deficits noted. No signs and/or symptoms reported regarding the musculoskeletal system. Trauma Activation: Stat Physician: ED Physician; Name: ; Notified At: ; Arrived At: Physician: General Surgeon; Name: ; Notified At: ; Arrived At: Physician: Radiology; Name: ; Notified At: ; Arrived At: Physician: Respiratory; Name: ; Notified At: ; Arrived At: Physician: Lab; Name: ; Notified At: ; Arrived At: Historical: - Allergies: 21:03 Amoxicillin; sf - Home Meds: 10/31 00:13 flecainide 50 mg oral tab 1 tab every 12 hours [Active]; allopurinol 100 mg Oral tab 1 sf tab once daily [Active]; Flomax 0.4 mg Oral cp24 1 cap once daily [Active]; - PMHx: 10/30 21:03 LYMPHOMA; Hypertension; Atrial Fib; sf - PSHx: 21:03 Unable to obtain; sf - Immunization history:: Adult Immunizations up to date, Client reports receiving the 2nd dose of the Covid vaccine, Reports about 2 weeks ago by daughter, Bebo. - Social history:: Smoking status: Patient denies any tobacco usage or history of. Patient/guardian denies using alcohol, street drugs, IV drugs. - Immunization history: Last tetanus immunization: unknown. Screenin:50 Abuse screen: Denies threats or abuse. Denies injuries from another. Tuberculosis sf screening: No symptoms or risk factors identified. Never had TB. Possible symptoms: None Risk factors: None. Fall risk At risk due to age, immobility, prior history of falls, Intervention for positive screen: side rails up. Exposure risk/Travel Screening: None identified. Has not been out of the country. 21:00 VAN Screening: Arm Drift: Minor drift. Visual Disturbance: No visual disturbance noted. sf Aphasia: No aphasia noted. Neglect: No neglect noted. Patient has been NPO before screening. The patient is alert, able to follow commands. The patient exhibits slurred or garbled speech. Provider notified of indication for Speech Therapy consult. The patient failed the bedside swallow screening. The patient will be kept NPO until cleared by Speech Therapy or Physician. 21:14 Nutritional screening: No deficits noted. Fall Risk Fall in past 12 months (25 points). sf Secondary diagnosis (15 points) impaired mobility, IV access (20 points). Ambulatory Aid- None/Bed Rest/Nurse Assist (0 pts). Gait- Weak (10 pts.). Mental Status- Overestimates/Forgets Limitations (15 pts.). Total Mota Fall Scale indicates High Risk Score (45 or more points). Fall prevention measures have been instituted. Side Rails Up X 2 Placed Close to Nursing Station. Primary Survey: 20:50 NO uncontrolled hemorrhage observed. A: The patient is alert. Airway: patent. sf Breathing/Chest: Respiratory pattern: regular, Respiratory effort: spontaneous, unlabored, Breath sounds: clear, bilaterally. Chest inspection: symmetrical rise and fall of the chest. Circulation: Pulses: palpable right radial artery. Skin color: pink, Skin temperature: warm, dry. Disability Alert. Exposure/Environment: There is no evidence of uncontrolled external bleeding. No obvious injuries are noted at this time. Reassessment Airway Airway Patent Breathing/Chest Respiratory pattern Regular Respiratory effort Spontaneous Unlabored Circulation Color [place] Temperature Warm Dry Disability Alert. Secondary Survey: 20:50 HEENT: Head No injury/deformity Face Other droop to left. Gastrointestinal: No deficits sf noted. : No deficits noted. Musculoskeletal: No deficits noted. Assessment: 20:50 General: Appears slender, well groomed, well developed, Behavior is calm, cooperative. sf 21:45 Reassessment: Spoke with Bebo, patient's daughter, updated on status of care. phone lp1 number: [phone]. 23:45 Reassessment: Spoke with Bebo, updated on patient status and waiting for complete lp1 results. 10/31 00:48 Reassessment: Patient appears in no apparent distress at this time. No changes from sf previously documented assessment. Patient and/or family updated on plan of care and expected duration. Pain level reassessed. Patient is alert, oriented x 3, equal unlabored respirations, skin warm/dry/pink. 01:30 Reassessment: Patient appears in no apparent distress at this time. No changes from previously documented assessment. Patient and/or family updated on plan of care and expected duration. Pain level reassessed. Patient is alert, oriented x 3, equal unlabored respirations, skin warm/dry/pink. Patient denies pain at this time. 01:45 Reassessment: Spoke with Bebo, aware of plan for transfer to [facility]. [facility] 02:09 Reassessment: Report given to GALILEA Penaloza at [facility] for transfer to [address] [place] [address] 03:00 Reassessment: Left voicemail for Bebo, about ETA for EMS for patient transfer to [address] in about 15min. Vital Signs: 10/30 20:57 BP 147 / 70; Pulse 84; Resp 18; Temp 98.6; Pulse Ox 98% ; Weight 94.35 kg; Height 6 ft. sf 1 in. (185.42 cm); Pain 0/10; 21:00 BP 129 / 55; Pulse 81; Resp 16; Pulse Ox 100% ; sf 22:34 BP 147 / 92; Pulse 85; Resp 14; Pulse Ox 100% ; Pain 0/10; sf 23:40 BP 145 / 77; Pulse 87; Resp 14; Pulse Ox 100% ; sf 10/31 00:00 BP 134 / 98; Pulse 93; Resp 14; Pulse Ox 99% ; sf 00:30 BP 140 / 75; Pulse 83; Resp 16; Pulse Ox 100% ; sf 01:00 BP 141 / 88; Pulse 89; Resp 14; Pulse Ox 99% ; sf 01:30 BP 136 / 90; Pulse 98; Resp 14; Pulse Ox 98% ; Pain 0/10; sf 03:00 BP 127 / 68; Pulse 82; Resp 14; Pulse Ox 100% ; sf 10/30 20:57 Body Mass Index 27.44 (94.35 kg, 185.42 cm) Vitals: 10/30 22:34 Cardiac Rhythm Assessment Sinus rhythm W/unifocal PVC's. sf [place] Coma Score: 20:50 Eye Response: spontaneous(4). Verbal Response: oriented(5). Motor Response: obeys sf commands(6). Total: 15. Trauma Score (Adult): 20:50 Eye Response: spontaneous(1); Verbal Response: oriented(1); Motor Response: obeys sf commands(2); Systolic BP: > 89 mm Hg(4); Respiratory Rate: 10 to 29 per min(4); [place] Score: 15; Trauma Score: 12 NIH Stroke Scale Scores: 21:00 NIHSS Score: 8 sf ED Course: 20:50 Patient arrived in ED. mw2 20:50 Patient has correct armband on for positive identification. Fall risk band placed. sf Placed in gown. Bed in low position. Call light in reach. Side rails up X2. monitoring coordinator on. Pulse ox on. NIBP on. 20:50 Patient maintains SpO2 saturation greater than 95% on room air. sf 20:50 Maintain EMS IV. Dressing intact. Good blood return noted. Site clean \\T\\ dry. Gauge \\T\\ sf site: 22 GA left AC. 20:51 Rao Villaseñor MD is Attending Physician. [facility] 20:57 Jamey Arshad RN is Primary Nurse. sf 21:02 Triage completed. sf 21:03 Arm band placed on right wrist. Patient Trauma alert called. sf 21:13 Thermoregulation: warm blanket given to patient. sf 21:20 Initial lab(s) drawn, by me, sent to lab. T\\T\\S collected, blood band applied to patient. lp1 22:02 Knee Left 3 View XRAY In Process Unspecified. EDMS 22:02 Knee Right 3 View XRAY In Process Unspecified. EDMS 22:02 Foot Left 3 View XRAY In Process Unspecified. EDMS 22:30 CT Traumagram (Head C Spine CAP W Con) Sent. sf 22:31 IV is reddened, is swollen, with fluids not infusing freely, without good blood return, sf CT reports IV infiltration during CT scan. 22:41 CT Traumagram (Head C Spine CAP W Con) In Process Unspecified. EDMS 23:05 Inserted saline lock: 22 gauge in right antecubital area, using aseptic technique. sf 23:12 Door closed. Noise minimized. Visitors limited. Lights dimmed. Warm blanket given. sf Verbal reassurance given. 23:49 Inserted saline lock: 20 gauge in right forearm, using aseptic technique. oe 23:49 IV discontinued, intact, bleeding controlled, Pressure dressing applied, 22 GA in left sf AC. 10/31 00:22 initiated a transfer with [facility] from [facility]. [facility] declined mw2 due to capacity. 00:25 LFT's Sent. sf 00:25 Basic Metabolic Panel Sent. sf 00:25 CBC with Diff Sent. sf 00:25 Type And Screen Sent. sf 00:27 initiated a transfer with Jenifer Cooper from [facility]. mw2 00:33 COVID swab sent to lab. sf 00:39 COVID-19 : Document "Date of Symptom Onset" if Symptomatic. Sent. sf 00:46 IV is patent, is intact, with fluids infusing freely, with good blood return, (22 GA sf right AC and 20 GA right forearm). 01:05 administrative approval given by Jenifer Cooper/ patient has been accepted to [address] [place] [address] bed 18/ Dr. Haney has accepted the patient in transfer/ report to be called to [phone]. 01:10 Jenifer Cooper called from [facility] stating "Dr. Haney wants the covid mw2 result before sending the patient". 02:54 contacted [facility] spoke to Jenifer Cooper gave her covid results. mw2 03:13 Patient transferred, IV remains in place. sf 03:14 No provider procedures requiring assistance completed. sf 03:20 Report given to [facility]. sf Administered Medications: 00:30 Drug: Keppra 1000 mg Route: IV; Rate: per protocol; Site: right forearm; sf 00:46 Follow up: IV Status: Completed infusion; IV Intake: 100ml sf 01:30 Follow up: Response: No adverse reaction sf Intake: 00:46 IV: 100ml; Total: 100ml. sf 03:00 PO: 0ml; Total: 100ml. sf Output: 03:00 Urine: 250ml (Voided); Total: 250ml. sf Outcome: 02:14 ER care complete, transfer ordered by MD. cazares 03:20 Transferred by ground EMS to [facility], Transfer form completed. sf 03:20 Condition: stable 03:20 Instructed on the need for transfer. 03:21 Patient's length of stay in the Emergency Department was greater than 2 hours. sf Transferring and transportationPatient's length of stay extended due to 03:27 Patient left the ED. sf NIH Stroke Scale - NIH Stroke Score Date: 10/30/2020 Time: 21:00 Total Score = 8 1a. Level of Consciousness (LOC) - 0(Alert) 1b. Level of Consciousness (LOC) (Year \\T\\ Age) - 0(Both) 1c. LOC Commands (Open \\T\\ Closes Eyes/Combiner) - 0(Both) 2. Best Gaze (Lateral Gaze Paresis) - 1(Partial gaze palsy) 3. Visual Field Loss - 0(No visual loss) 4. Facial Palsy - 2(Partial paralysis) 5a. Left Arm: Motor (10-second hold) - 1(Drift) 5b. Right Arm: Motor (10-second hold) - 0(No drift) 6a. Left Leg: Motor (5-second hold - always test supine) - 1(Drift) 6b. Right Leg: Motor (5-second hold - always test supine) - 0(No drift) 7. Limb Ataxia (finger/nose \\T\\ heel/miller - test with eyes open) - 1(Present in one limb) 8. Sensory Loss (pinprick arms/legs/face) - 1(Mild to moderate loss) 9. Best Language: Aphasia (description/naming/reading) - 0(No aphasia) 10. Dysarthria (speech clarity - read or repeat words) - 1(Mild to Moderate) 11. Extinction and Inattention (visual/tactile/auditory/spatial/personal) - 0(No abnormality) Initials: sf Signatures: Dispatcher [employer] EDDania Hartman RN RN lp1 Tyrese Crane MyKena mw2 Rao Villaseñor MD MD 7 Jamey Arshad RN RN sf Corrections: (The following items were deleted from the chart) 00:13 10/30 23:12 Home Meds: amlodipine 5 mg tab 1 tab once daily; sf sf
[2020-10-31 03:33] VITALS: TEMP 98.6
[2020-10-31 03:47] VITALS: BP 127/68; O2SAT 100
--- NOTE | 2020-10-31 10:56 | RAD REPORT ---
EXAM DESCRIPTION: RAD - Foot Left 3 View - 10/30/2020 10:01 pm CLINICAL HISTORY: Trauma. COMPARISON: None. TECHNIQUE: Three views of the left foot were obtained: AP, oblique, and lateral. FINDINGS: No acute osseous abnormality identified. Lisfranc joint alignment is maintained. Osteopeni a. Atherosclerosis. Tiny chronic Achilles and plantar fascial enthesophytes. Minimal osseous degenera tive changes. IMPRESSION: 1. No acute osseous abnormality identified. 2. Osteopenia. Minimal degenerative changes. Electronically signed by: Cecy Schulz MD 10/30/2020 11:18 PM CDT Due to temporary technical issues with the PACS/Fluency reporting system, reports are being signed by the in house radiologist without review as a courtesy to ensure prompt reporting. The interpreting r adiologist is fully responsible for the content of the report.
--- NOTE | 2020-10-31 10:57 | RAD REPORT ---
EXAM DESCRIPTION: RAD - Knee Left 3 View - 10/30/2020 10:02 pm CLINICAL HISTORY: Trauma. COMPARISON: None. TECHNIQUE: Three views of the left knee were obtained: AP, oblique, and lateral. FINDINGS: No acute osseous abnormality identified. No definite suprapatellar joint effusion. Osteope temo. Moderate medial joint space narrowing with small marginal osteophytes. Atherosclerosis. IMPRESSION: 1. No acute osseous abnormality or joint effusion identified. 2. Moderate medial joint space narrowing. Electronically signed by: Cecy Schulz MD 10/30/2020 11:16 PM CDT Due to temporary technical issues with the PACS/Fluency reporting system, reports are being signed by the in house radiologist without review as a courtesy to ensure prompt reporting. The interpreting r adiologist is fully responsible for the content of the report.
--- NOTE | 2020-10-31 11:03 | RAD REPORT ---
EXAM DESCRIPTION: RAD - Knee Right 3 View - 10/30/2020 10:02 pm CLINICAL HISTORY: Trauma. COMPARISON: None. TECHNIQUE: Three views of the right knee were obtained: AP, oblique, and lateral. FINDINGS: No acute osseous abnormality. Osteopenia. Tiny tricompartmental osteophytes. No definite s uprapatellar joint effusion. Atherosclerosis. IMPRESSION: 1. No acute osseous abnormality or joint effusion identified. 2. Osteopenia. 3. Minimal degenerative changes. Electronically signed by: Cecy Schulz MD 10/30/2020 11:17 PM CDT Due to temporary technical issues with the PACS/Fluency reporting system, reports are being signed by the in house radiologist without review as a courtesy to ensure prompt reporting. The interpreting r adiologist is fully responsible for the content of the report.
--- NOTE | 2020-10-31 11:32 | RAD REPORT ---
EXAM DESCRIPTION: CT - Head C Spine Cap W Con - 10/30/2020 11:10 pm ADDENDUM #1 EXAM DESCRIPTION: Head C Spine Cap W Con RadLex: CT HEAD AND CERVICAL SPINE WITHOUT CONTRAST AND CT CHEST ABDOMEN PELVIS WITH CONTRAST CLINICAL HISTORY: Trauma. History of lymphoma. COMPARISON: CT of the chest, abdomen, and pelvis from June 27, 2020. TECHNIQUE: CT of the chest, abdomen, and pelvis was performed following intravenous administration o f iodinated contrast. Oral contrast was not administered. Axial, coronal, and sagittal reconstruction s were created and sent to PACS. This exam was performed according to our departmental dose-optimization program, which includes autom ated exposure control, adjustment of the mA and/or kV according to patient size and/or use of iterati ve reconstruction technique. FINDINGS: Lungs and pleura: No pulmonary consolidation. No pleural effusion. No pneumothorax. Unchan ged mild intralobular septal thickening in the basilar right lower lobe, possibly scarring. Mediastinum and neck: No mediastinal lymphadenopathy identified by CT size criteria. Unremarkable miladis earance of the thyroid gland. Cardiac: No cardiomegaly or pericardial effusion. No thoracic aortic aneurysm or dissection. Mild to moderate aortic atherosclerosis. Moderate amount of coronary artery calcifications. No central pulmon anoop embolism. Right-sided infusion port catheter terminates near the superior cavoatrial junction. Hepatobiliary: Small hypodensity in the superior left hepatic lobe measures 1.9 x 3.1 cm, unchanged. No concerning hepatic lesion identified. The hepatic and portal veins are patent. The gallbladder is unremarkable. No biliary ductal dilatation. Pancreas: Unremarkable. Spleen: Unremarkable. Gastrointestinal: No evidence of bowel obstruction or perienteric inflammation. The appendix is georgi l. Adrenals: No abnormality identified in either adrenal gland. Renal: Right interpolar slightly heterogeneous hypodensity measures 0.9 cm, slightly smaller in size as compared to prior, when it measured 1.1 cm. Bilateral renal hypodensities, measuring up to 5.8 cm at the superior pole of the left kidney. The larger hypodensities measure simple fluid density, consi stent with cysts. However, the smaller hypodensities are too small to accurately characterize but sta tistically likely cysts. No hydronephrosis or urolithiasis. Bladder/Reproductive: Unremarkable appearance of the urinary bladder by CT technique. Vascular/Lymphatics: No lymphadenopathy identified by CT size criteria. Abdominal aorta is normal in caliber. Moderate atherosclerosis. The major visceral vessels are patent. Musculoskeletal: No concerning osseous lesion identified. Osteopenia. Unchanged mild anterior wedge c ompression deformity L4. Disc and endplate degenerative changes at L5-S1. Fluid / peritoneum: No significant free fluid. No free intraperitoneal air identified. IMPRESSION 1. No evidence of acute traumatic injury identified in the chest, abdomen, or pelvis. 2. Right interpolar slightly heterogeneous hypodensity measures 0.9 cm, slightly smaller in size as compared to prior, when it measured 1.1 cm, and therefore likely benign. However, consider correlati on with nonemergent renal ultrasound given its heterogeneous appearance. 3. Bilateral renal cysts (Bosniak I). 4. No lymphadenopathy identified. 5. Osteopenia. Unchanged mild anterior wedge compression deformity L4. Disc and endplate degenerati ve changes at L5-S1. Electronically signed by: Cecy Schulz MD 10/31/2020 12:07 AM CDT End of Addendum EXAM DESCRIPTION: Head C Spine Cap W Con. RadLex: CT HEAD AND CERVICAL SPINE WITHOUT CONTRAST AND CT CHEST ABDOMEN PELVIS WITH CONTRAST CLINICAL HISTORY: Trauma. TECHNIQUE: Axial, coronal, and sagittal images through the brain were performed in the absence of in travenous contrast. CT of the cervical spine was performed without contrast. Axial, coronal, and sagittal reconstructions were created and sent to PACS. These exams were performed according to our departmental dose-optimization program which includes use of Automated Exposure Control, adjustment of the mA and/or kV according to patient size and/or use o f iterative reconstruction technique. COMPARISON: CT of the head from February 12, 2020. FINDINGS: CT Head: There is a subacute-appearing large right MCA distribution infarct. Smaller suspected subacute infarc t in the left temporal lobe. There is leftward midline shift of approximately 0.8 cm. The kareem is astrid fted to the left slightly. The remaining basal cisterns are patent. No hydrocephalus. The orbital con tents appear unremarkable. Trace mucosal thickening in the left sphenoid sinus. The remaining visualized paranasal sinuses and m astoid air cells are patent. No fracture is identified. CT cervical spine: Straightening of the normal cervical lordosis. No acute osseous abnormality identified. Vertebral bod y height and alignment are maintained. No atlantodental interval widening. Atlantoaxial alignment is maintained. C2-C3: Small posterior disc osteophyte complex. Mild uncinate hypertrophy on the right results in mil d right-sided neuroforaminal stenosis. No significant central canal or left-sided neuroforaminal narr owing. C3-C4: Posterior disc osteophyte complex results in mild to moderate narrowing of the central canal t o 0.5 cm AP. Mild uncinate hypertrophy results in moderate right-sided neuroforaminal stenosis. No si gnificant left-sided neuroforaminal narrowing. C4-C5: Mild disc height loss. Posterior disc osteophyte complex results in mild to moderate narrowing of the central canal to 0.5 to 0.6 cm AP. Moderate bilateral uncinate hypertrophy results in moderat e bilateral neuroforaminal stenosis. C5-C6: Mild disc height loss. Posterior disc osteophyte complex results in mild narrowing of the cent ral canal to 0.6 cm AP. Moderate bilateral uncinate hypertrophy results in moderate to severe bilater al neuroforaminal stenosis. C6-C7: Small posterior disc osteophyte complex results in borderline narrowing of the central canal t o 0.8 to 0.9 cm AP. No significant neuroforaminal narrowing. Paraspinal soft tissues: Unremarkable. IMPRESSION: 1. Large subacute-appearing right MCA distribution infarct. Smaller suspected subacute infarct in the left temporal lobe. Resultant leftward midline shift of 0.8 cm. Consider correlation with MRI, if clinically necessary. 2. No acute cervical spine fracture. Degenerative changes resulting in central canal and neuroforam inal narrowing, as described. THIS REPORT CONTAINS FINDINGS THAT MAY BE CRITICAL TO PATIENT CARE: The findings were verbally discu ssed via telephone conference with Dr. Rao Villaseñor on 10/30/2020 10:53 PM CDT. The results were ack nowledged and understood. Electronically signed by: Cecy Schulz MD 10/30/2020 11:00 PM CDT Due to temporary technical issues with the PACS/Fluency reporting system, reports are being signed by the in house radiologist without review as a courtesy to ensure prompt reporting. The interpreting r adiologist is fully responsible for the content of the report.
== END 2020-10-31 03:27 | disposition short-term general hospital (02) ==
LOC: ER 20:48
DX: I63.511 Cerebral infarction due to unspecified occlusion or stenosis of right middle cerebral artery (principal); I10 Essential (primary) hypertension; R29.708 NIHSS score 8; I48.91 Unspecified atrial fibrillation; W18.30XA Fall on same level, unspecified, initial encounter; Y93.01 Activity, walking, marching and hiking; Y92.009 Unspecified place in unspecified non-institutional (private) residence as the place of occurrence of the external cause; Z88.1 Allergy status to other antibiotic agents; Z20.822 Contact with and (suspected) exposure to COVID-19; Z85.72 Personal history of non-Hodgkin lymphomas
CPT/HCPCS: 93005; 85025; 80048; 36415; 86900; 86850; 85610; 86901; 80076; 85730; 81003; 84484; 83880; 70450; 72125; 71260; 74177; 73630; 73562 ×2; U0003; Q9967; J1953; 96365; 99285; G0390

== ENCOUNTER 2020-11-20 21:49 | Emergency (ER) | payer OTHER ==
--- OUTSIDE RECORDS SUMMARY | 2020-11-20 21:57 | XMS REPORT | Continuity of Care Document ---
:1945 Author Organization [facility] t Address [address] [place] [address] [address]. [address] [place] [address] Care Team Providers Name Role Phone Pcp Primary Care Physician Unavailable Julio Ramirez MD Attending Clinician [phone] Timothy GAMBLE IGatito Attending Clinician Afshin GAMBLE Attending Clinician Zeke Early MD Attending Clinician Tino GAMBLE Attending Clinician Manny GAMBLE Attending Clinician Isabel GAMBLE, Taco Attending Clinician Unavailable JULIO RAMIREZ Attending Clinician Unavail able Jacquie GAMBLE Attending Clinician Enrique Avila MD Attending Clinician Wong Keating MD Attending Clinician [phone] JACQUIE Attending Clinician Unavailable Chana GAMBLE, Vivian Attending Clinician Raymond Alfred MD Attending Clinician Bib Mi Attending Clinician VISIT, CHEESE BLENDER ECHO Attending Clinician Unavailable JULIO RAMIREZ Admitting Clinician Unavail able JACQUIE Admitting Clinician Unavailable Payers Payer Name Policy Type Policy Effective Date Expiration Date Sour ce Number [facility] [id number] [facility] - MEDICARE MGD 00:00[facility] [id number] 020-Present Problems Condition Condition Condition Status Onset Resolution Last Treating Co mments Source Name Details Category Date Date Treatment Clinician Date 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 3-31 [facility] - 00:00: Medical 00 [place] Midline Midline Disease Active [facility] shift of shift of [facility] - brain brain 00:00: Medical 00 [place] Lymphoma Lymphoma Disease [facility] - 00:00: Medical 00 [place] Acute Acute Disease Active [facility] encephalop encephalop 3-31 [facility]ie kes - athy athy 00:00: Medical 00 [place] Acute Acute Disease Active [facility] cystitis [...] kes - anemia anemia 00:00: Medical 00 [place] ASHLY (acute ASHLY (acute Disease Active [facility] kidney kidney 6-14 [facility] - injury) injury) 00:00: Medical 00 [place] GIB GIB Disease Active [facility] (gastroint (gastroint 6-13 [facility] k[facility] - estinal estinal 00:00: Medical bleeding) bleeding) 00 Cent er Essential Essential Disease Active [facility] hypertensi hypertensi 6-13 [facility] kes - on on 00:00: Medical 00 Center Allergies, Adverse Reactions, Alerts This patient has no known allergies or adverse reactions. Social History Social Habit Start Date Stop Date Quantity Comments Source History SDOH [facility] - Alcohol Std Drinks [facility] History SDOH [facility] - Alcohol Binge Medical [facility] ter Sex Assigned At [facility] Medical [facility] Exposure to Not sure [facility] - SARS-CoV-2 (event) [facility] Tobacco use and 2020-11-10 2020-11-[address] [facility] Emmie kes - exposure 00:00:00 00:00:00 [facility] Alcohol intake 2020-11-10 2020-11-[address] Joey es - 00:00:00 00:00:00 non-drinker of Medical Ce nter alcohol (finding) History SDOH 2020-01-17 2020-01-[address] [facility] - Alcohol Frequency 00:00:00 00:00:00 Medical Center Smoking Status Start Date Stop Date Source Never sm[facility] Medications Ordered Filled Start Stop Current Ordering Indication Dosage Frequency Signature Comments Components Source Medication Medication Date Date Medication? Clinician (SIG) Name Name flecainide Yes 100mg Q.5D Take [address] (TAMBOCOR) 4-12 mg by [facility] - 100 MG 15:28: mouth 2 Medical tablet 39 (two) Center times daily. amLODIPine Yes 5mg QD Take [address] (NORVASC) 5 4-12 by mouth Luke s - MG tablet 15:28: daily. Medica l 39 Center famotidine 2020- Yes 20mg Take [address] [facility] [address] (PEPCID) 20 412 05-12 tablet (20 L ukes - MG tablet 00:00: 23:59 mg total) Me dical 00 :00 by mouth Center every 12 (twelve) hours for 30 days. acyclovir 2020- Yes 400mg Q.5D Take [address] (ZOVIRAX) 4-12 04-26 tablet [facility] - 400 MG 00:00: 23:59 (400 mg Medical tablet 00 :00 total) by Center mouth 2 (two) times daily for 14 days. dexAMETHaso 2020- Yes 4mg Q.5D Take [address] ne -12 04-22 tablet (4 [facility] - (DECADRON) 00:00: 23:59 mg total) M edical 4 MG tablet 00 :00 by mouth 2 Ce nter (two) times daily for 10 days. leucovorin 2020- No 10mg QD Take [address] (WELLCOVORI 4-12 04-15 tablet (10 [facility] - N) 10 MG 00:00: 23:59 mg total) Med ical tablet 00 :00 by mouth Center daily for 3 days. ciprofloxac 2020- No 500mg Take [address] in HCl 4-12 04-12 tablet [facility] - (CIPRO) 500 00:00: 00:00 (500 mg Me dical MG tablet 00 :00 total) by Cente r mouth every 12 (twelve) hours for 14 days. fluconazole No 200mg QD Take [address] (DIFLUCAN) 11-14 tablet [facility] - 200 MG 00:00: 00:00 (200 mg Medical tablet 00 :00 total) by Center mouth daily for 14 days. pantoprazol No 40mg Q.5D Take [address] e 6-16 09-14 tablet (40 [facility] - (PROTONIX) 00:00: 23:59 mg total) M edical 40 MG 00 :00 by mouth 2 Center tablet (two) times daily for 90 days. pantoprazol No 40mg Q.5D Take [address] e 6-15 06-16 tablet (40 [facility] - (PROTONIX) 00:00: 00:00 mg total) M edical 40 MG 00 :00 by mouth 2 Center tablet (two) times daily for 30 days. pantoprazol No 40mg QD Take [address] e 6-15 06-15 tablet (40 [facility] - (PROTONIX) 00:00: 00:00 mg total) M edical 40 MG 00 :00 by mouth Center tablet daily for 30 days. Vital Signs Vital Name Observation Time Observation Value Comments Source Systolic blood 2020 11:43:00 141 mm[Hg] [facility] Diastolic blood 2020 11:43:00 59 mm[Hg] [facility] Heart rate 2020 11:43:00 60 /min [facility] Body temperature 2020 11:43:00 36.78 Stacey [facility] Respiratory rate 2020 11:43:00 18 /min [facility] Oxygen saturation in 2020 11:43:00 100 /min [facility] Arterial blood by Medical Ce nter Pulse oximetry Body weight 2020-11-07 19:32:00 91.082 kg [facility] BMI 2020-11-07 19:32:00 27.23 kg/m2 [facility] Body height 2020-10-31 04:44:00 182.9 cm [facility] Procedures Procedure Date / Time Performing Clinician Source Performed POCT-GLUCOSE METER 2020 11:14:00 Chas Early [facility] POCT-GLUCOSE METER 2020 07:30:00 [facility] CBC W/PLT COUNT & AUTO 2020 03:31:00 [facility] BASIC METABOLIC PANEL (7) 2020 03:31[place] [facility] (CELLAVISION MANUAL DIFF) 2020 03:31:00 [facility] POCT-GLUCOSE METER 2020-11-13 23:20:00 [facility] POCT-GLUCOSE METER 2020-11-13 17:11:00 [facility]/ DOPPLER 2020-11-13 11:53:49 [facility] METHOTREXATE LEVEL 2020-11-13 09:56:00 Chas Early [facility] CBC W/PLT COUNT & AUTO 2020-11-13 04:36:00 [facility] BASIC METABOLIC PANEL (7) 2020-11-13 04:36:00 [facility] (CELLAVISION MANUAL DIFF) 2020-11-13 04:36:00 [facility] HC VENOUS DOPPLER EXT UNI 2020-11-12 20:00:00 [facility] VENOUS DOPPLER LEGS BILATERAL 2020-11-12 20:00:00 Rajani Early [facility] POCT-GLUCOSE METER 2020-11-12 18:19:00 Chas Early [facility] METHOTREXATE LEVEL 2020-11-12 08:13:00 [facility] TROPONIN I 2020-11-12 08:13:00 [facility] PH, URINE 2020-11-12 00:44:[address] [facility] CBC W/PLT COUNT & AUTO 2020-11-12 00:33:00 [facility] BASIC METABOLIC PANEL (7) 2020-11-12 00:33:00 [facility] ([facility]UAL DIFFERENTIAL) 2020-11-12 00:33:00 Claudio Roper [facility] TROPONIN I 2020-11-12 00:31:00 [facility] COMPREHENSIVE METABOLIC PANEL 2020-11-12 00:31:[address] [facility] POCT-GLUCOSE METER 2020-11-11 17:36:00 [facility] 2020-11-11 13:40:00 [facility] POCT-GLUCOSE METER 2020-11-11 12:31:00 [facility] METHOTREXATE LEVEL 2020-11-11 08:38:00 Garcia [facility] D-DIMER 2020-11-11 08:38:00 [facility] XR CHEST 1 VIEW 2020-11-11 07:40:00 [facility]/BEDSIDE Medical [facility] BASIC METABOLIC PANEL (7) 2020-11-11 05:35:00 [facility] HE[facility] PANEL 2020-11-11 05:35:00 [facility] PH, URINE 2020-11-11 04:54:[address] [facility] ECG 12-LEAD 2020-11-11 04:43:15 Betzaida Alfaro [facility] CBC W/PLT COUNT & AUTO 2020-11-11 03:38:00 Nneka [facility] (CELLAVISION MANUAL DIFF) 2020-11-11 03:38:00 [facility] POCT-GLUCOSE METER 2020-11-10 21:36:00 [facility] POCT-GLUCOSE METER 2020-11-10 18:22:00 [facility] SARS-COV2/RT-PCR ([facility] & REF 2020-11-10 18:18:[address] [facility] Center TYPE AND SCREEN, AUTOMATED 2020-11-10 18:09:00 Nguyễn Jean-Baptiste [facility] POCT-GLUCOSE METER 2020-11-10 12:14:00 [facility] METHOTREXATE LEVEL 2020-11-10 08:52:00 [facility] POCT-GLUCOSE METER 2020-11-10 07:43:00 [facility] CBC W/PLT COUNT & AUTO 2020-11-10 05:14:00 [facility] BASIC METABOLIC PANEL (7) 2020-11-10 05:14:00 [facility] (CELLAVISION MANUAL DIFF) 2020-11-10 05:14:00 [facility] PH, URINE 2020-11-10 03:05:[address] [facility] POCT-GLUCOSE METER 2020-11-09 20:19:00 [facility] POCT-GLUCOSE METER 2020-11-09 11:04:00 Nneka [facility] POCT-GLUCOSE METER 2020-11-09 07:51:00 Nneka [facility] PH, URINE 2020-11-09 05:54:00 Estiven [facility] ECG 12-LEAD 2020-11-09 04:28:37 Suresh Wood [facility] CBC (HEMOGRAM ONLY) 2020-11-09 04:27:00 Afshin [facility] COMPREHENSIVE METABOLIC PANEL 2020-11-09 04:27:00 Morelia Pepe [facility] MAGNESIUM 2020-11-09 04:27:00 Afshin [facility] PH, URINE 2020-11-09 00:23:00 Estiven [facility] CT ABDOMEN/PELVIS WITH IV 2020-11-08 22:26:[address] [facility] CT CHEST WITH IV CONTRAST 2020-11-08 22:26:00 Kiana Pepe [facility] NECK SOFT TISSUE WITH IV 2020-11-08 22:26:00 Derian Pepe [facility] POCT-GLUCOSE METER 2020-11-08 21:18:00 Afshin [facility] POCT-GLUCOSE METER 2020-11-08 17:28:00 Afshin [facility] PH, URINE 2020-11-08 16:42:00 Estiven [facility] POCT-GLUCOSE METER 2020-11-08 12:09:00 Afshin [facility] PH, URINE 2020-11-08 10:40:00 Frederic [facility] PH, URINE 2020-11-08 04:45[facility] & AUTO 2020-11-08 04:34:00 Afshin [facility] COMPREHENSIVE METABOLIC PANEL 2020-11-08 04:34:00 Morelia Pepe [facility] HEPATITIS B SURFACE ANTIBODY 2020-11-08 04:34:00 [facility] HEPATITIS B SURFACE ANTIGEN 2020-11-08 04:34:00 [facility] HEPATITIS B CORE ANTIBODY, 2020-11-08 04:34:00 [facility] Nguyễn Jordyn [facility] HEPATITIS C ANTIBODY 2020-11-08 04:34:00 [facility] (CELLAVISION MANUAL DIFF) 2020-11-08 04:34:00 Kiana Pepe [facility] COMPREHENSIVE METABOLIC PANEL 2020-11-07 18:18:00 Librado Garcia [facility] MAGNESIUM 2020-11-07 18:18:00 Radha Terence [facility] POCT-GLUCOSE METER 2020-11-07 17:52:00 Afshin [facility] POCT-GLUCOSE METER 2020-11-07 08:27:00 Afshin [facility] POCT-GLUCOSE METER 2020-11-06 21:57:00 Afshin [facility] POCT-GLUCOSE METER 2020-11-06 18:03:00 Afshin [facility] POCT-GLUCOSE METER 2020-11-06 12:17:00 Afshin [facility] POCT-GLUCOSE METER 2020-11-06 07:43:00 Afshin [facility] POCT-GLUCOSE METER 2020-11-05 22:11:00 Afshin [facility] CBC (HEMOGRAM ONLY) 2020-11-05 04:38:00 Kiana Pepe [facility] BASIC METABOLIC PANEL (7) 2020-11-05 04:38:00 Kiana Pepe [facility] BRAIN WITHOUT IV CONTRAST 2020-11-04 12:20:00 Kenneth Cabrera [facility] FLOW CYTOMETRY REQUISITION 2020-11-04 09:30:00 Luis Felipe Jiménez [facility] FLOW CYTOMETRY 2020-11-04 09:30:00 Luis Felipe Jiménez [facility] TISSUE EXAM 2020-11-04 09:25:42 Luis Felipe Jiménez [facility] CRANIOTOMY,STEALTH 2020-11-04 07:40:00 Luis Felipe Jiménez [facility] CBC (HEMOGRAM ONLY) 2020-11-04 04:07:00 Kiana Pepe [facility] COMPREHENSIVE METABOLIC PANEL 2020-11-04 04:07:00 Morelia Pepe [facility] CBC W/PLT COUNT & AUTO 2020-11-03 20:54:00 Luis Felipe [facility] TYPE AND SCREEN, AUTOMATED 2020-11-03 20:54:00 Luis Felipe Jiménez [facility] XR CHEST 1 VIEW 2020-11-03 18:25:00 Akin Graves [facility]/BEDSIDE [facility] BASIC METABOLIC PANEL (7) 2020-11-03 18:19:00 Akin Graves [facility] PROTHROMBIN TIME/INR 2020-11-03 18:19:00 Akin Graves I [facility] APTT 2020-11-03 18:19:00 Akin Graves [facility] MAGNESIUM 2020-11-03 18:19:00 Akin Graves [facility] PHOSPHORUS 2020-11-03 18:19:00 Akin Graves [facility] SARS-COV2/RT-PCR ([facility] & REF 2020-11-03 17:49:00 Kenneth Cabrera [facility] PREPARE LEUKO-REDUCED 2020-11-02 23:54:[address] [facility] FLOW CYTOMETRY REQUISITION 2020-11-02 11:06:[address] [facility] CYTOLOGY 2020-11-02 11:06:00 Ivette Aguirre [facility] FLOW CYTOMETRY 2020-11-02 11:06:00 [facility] CSF CULTURE + GRAM STAIN 2020-11-02 11:05:00 Caden Luque [facility] CSF CELL COUNT W/DIFFERENTIAL 2020-11-02 11:05:00 [facility], CSF 2020-11-02 11:05:00 Caden Luque [facility] PROTEIN, CSF 2020-11-02 11:05:00 [facility] PT/[facility] 2020-11-02 05:21:00 [facility] Health[facility] CBC W/PLT COUNT & AUTO 2020-11-02 05:21:00 [facility] COMPREHENSIVE METABOLIC PANEL 2020-11-02 05:21:00 AlbaDea [facility] PHOSPHORUS 2020-11-02 05:21:00 AlbaDea [facility] MAGNESIUM 2020-11-02 05:21:00 [facility] BETA 2 MICROGLOBULIN 2020-11-02 05:21:00 Gabi Kaur [facility] (CELLAVISION MANUAL DIFF) 2020-11-02 05:21:00 Dea Zheng [facility] TRANSFUSE LEUKO-REDUCED 2020-11-01 23:58:14 Chidi Metzger [facility] TRANSFUSE LEUKO-REDUCED 2020-11-01 22:55:25 Chidi Metzger [facility] TYPE AND SCREEN, AUTOMATED 2020-11-01 19:39:00 Storm Travis [facility] XR KNEE LEFT 1 OR 2 VIEWS 2020-11-01 15:47:00 Storm Travis [facility] POCT-GLUCOSE METER 2020-11-01 06:03:00 [facility] PT/APTT 2020-11-01 04:02:00 [facility] CBC W/PLT COUNT & AUTO 2020-11-01 04:02:00 [facility] COMPREHENSIVE METABOLIC PANEL 2020-11-01 04:02:00 [facility] PHOSPHORUS 2020-11-01 04:02:00 [facility] MAGNESIUM 2020-11-01 04:02:00 [facility] D-DIMER 2020-11-01 04:02:00 Gabi Kaur [facility] FIBRINOGEN 2020-11-01 04:02:00 Gabi Kaur [facility] VENOUS DOPPLER LEGS BILATERAL 2020-11-01 00:27:00 Tammy Lyle [facility] POCT-GLUCOSE METER 2020-10-31 23:32:00 Ivette Aguirre [facility] LACTATE DEHYDROGENASE (LDH) 2020-10-31 17:58:00 Michelle Kaur [facility] URIC ACID 2020-10-31 17:58:00 Gabi Kaur [facility] PERIPHERAL BLOOD SMEAR - HOLD 2020-10-31 17:58:00 Love Kaur [facility] HC LAB HIV-1 AG W/HIV-1&2 AB 2020-10-31 17:58:00 Edwin Kaur [facility] POCT-GLUCOSE METER 2020-10-31 17:30:00 Ivette Aguirre [facility] MR BRAIN WITH & WITHOUT IV 2020-10-31 14:21:00 Lyle Lyle [facility] POTASSIUM 2020-10-31 12:40:00 Devante Schwartz [facility] MAGNESIUM 2020-10-31 12:40:00 Devante Schwartz [facility] POCT-GLUCOSE METER 2020-10-31 11:43:00 Ivette Aguirre [facility] [place] INSERT 2020-10-31 06:40:18 [facility],ART,PERCUT,SHORTTERM [facility] PT/APTT 2020-10-31 05:15:00 [facility] CBC W/PLT COUNT & AUTO 2020-10-31 05:15:00 [facility] COMPREHENSIVE METABOLIC PANEL 2020-10-31 05:15:00 [facility] LIPID PANEL 2020-10-31 05:15:00 [facility] TSH/FREE T4 IF INDICATED 2020-10-31 05:15:00 [facility] VITAMIN B12 AND FOLATE 2020-10-31 05:15:00 [facility] PHOSPHORUS 2020-10-31 05:15:00 [facility] MAGNESIUM 2020-10-31 05:15:00 [facility] THROMBOELASTOGRAPH (TEG) 2020-10-31 05:15:00 [facility] ECG 12-LEAD 2020-10-31 04:47:56 Unknown, Hl7 Doctor [facility] SARS-COV2/RT-PCR ([facility] & REF 2020-02-12 11:50:00 [facility] LABS) Medical Center REPORT OF PROCEDURE - 2020-01-20 13:53:10 Provider, Default [facility] SCAN [facility] RHYTHM STRIP - SCAN 2020-01-20 13:53:05 Provider, Default [facility] TRANSFUSION SERVICE REPORT - 2020-01-19 18:10:35 Provider, Defau lt [facility] CBC W/PLT COUNT & AUTO 2020-01-19 03:55:[address] [facility] S t [facility] DIFFERENTIAL [facility] BASIC METABOLIC PANEL (7) 2020-01-19 03:55:[address] [facility] MAGNESIUM 2020-01-19 03:55:00 [facility] PROT[facility]BIN TIME/INR 2020-01-19 03:55:00 aJcquie, [facility] PREPARE LEUKO-REDUCED RBC 2020-01-18 23:54:[address] [facility] TRANSFUSION SERVICE REPORT - 2020-01-18 18:00:14 Provider, Cherelle lt [facility] VENOUS DOPPLER ARM, RIGHT 2020-01-18 16:00:00 Thao Keating [facility] CBC W/PLT COUNT & AUTO 2020-01-18 04:48:00 ARVIN D[address]on S t [facility] DIFFERENTIAL [facility] BASIC METABOLIC PANEL (7) 2020-01-18 04:48:[address] [facility] MAGNESIUM 2020-01-18 04:48:00 [facility] PROTHROMBIN TIME/INR 2020-01-18 04:48:00 MartOdessa [facility] REPORT OF PROCEDURE - 2020-01-17 17:18:[address] [facility] ENDOSCOPY URL [facility] TISSUE EXAM 2020-01-17 17:03:00 David Alfred [facility] UPPER ENDOSCOPY,SCLEROTHERAPY 2020-01-17 13:03:00 David Alfred [facility] UPPER ENDOSCOPY,BIOPSY 2020-01-17 13:03:00 David Alfred [facility] CBC W/PLT COUNT & AUTO 2020-01-17 12:11:00 [facility] TRANSFUSE LEUKO-REDUCED RED 2020-01-17 08:35:27 [facility] TRANSFUSE LEUKO-REDUCED RED 2020-01-17 06:06:38 [facility] HEMOGLOBIN AND HEMATOCRIT 2020-01-17 05:38:[address] [facility] PROTHROMBIN TIME/INR 2020-01-17 03:16:00 [facility] HEMO[facility]EMATOCRIT 2020-01-17 03:16:[address] [facility] TRANSFUSE LEUKO-REDUCED RED 2020-01-17 02:57:49 [facility], MANUAL 2020-01-17 01:27:00 Marla Berger [facility] VITAMIN B12 AND FOLATE 2020-01-17 01:26:00 [facility] IRON, TIBC, % SAT. (WITHOUT 2020-01-17 01:26:[address] [facility] FERRITIN 2020-01-17 01:26:00 [facility] HAPTOGLOBIN 2020-01-17 01:26:00 MartOdessa CBC W/PLT COUNT & AUTO 2020-01-17 00:57:[address] [facility] S [facility] BASIC METABOLIC PANEL (7) 2020-01-17 00:57:[address] [facility] MAGNESIUM 2020-01-17 00:57:00 [facility] HEPATIC FUNCTION PANEL 2020-01-17 00:57:[address] [facility] S t [facility] PT/APTT 2020-01-17 00:57:00 [facility] RETICULOCYTE COUNT 2020-01-17 00:57:00 [facility]Hugh [facility] LACTATE DEHYDROGENASE (LDH) 2020-01-17 00:57:00 [facility] TYPE AND SCREEN, AUTOMATED 2020-01-17 00:57:[address] [facility] SARS-COV2/RT-PCR ([facility] & REF 2020-01-17 00:37:[address] [facility] ECG 12-LEAD 2020-01-17 00:08:25 [facility] Plan of Care Planned Activity Planned Date Details Comments Source Future Scheduled 2021-04-[address] [facility] Test 00:00:00 (Season Ended) [code = Medic al Center INFLUENZA VACCINE (Season Ended)] Future Scheduled 2020-08-[address] [facility] 00:[facility]:00 WELLNESS (YEAR 2 or Medical Center FIRST YEAR if no IPPE) [code = MEDICARE ANNUAL WELLNESS (YEAR 2 or FIRST YEAR if no IPPE)] Future Scheduled 2020-08-[address] [facility] - Test 00:00:00 (12+) [code = Medical Center DEPRESSION SCREENING (12+)] Future Scheduled 2009 PNEUMOCOCCAL 65+ YRS [facility] - Test 00:00:00 (1 of 1 - Medical Center [id number] PCV13) [code = PNEUMOCOCCAL 65+ YRS (1 of 1 - [id number] PCV13)] Future Scheduled 1994 SHINGLES VACCINES ([address] [facility] - Test 00:00:00 of 2) [code = [facility] VACCINES (1 of 2)] Future Scheduled 1964-11-15 DTAP/TDAP/TD VACCINES [facility] - Test 00:00:00 (1 - Tdap) [code = Medical C enter DTAP/TDAP/TD VACCINES (1 - Tdap)] Encounters Start End Encounter Admission Attending Care Care Encounter Source Date/Time Date/Time Type Type Clinicians Facility Department ID 2019-09-03 2019-09-03 Outpatient Hiwot, [facility] [id number] 10:00:00 23:59:59 Abraham Mccartney 16 2019-03-05 2019-03-05 Outpatient [facility]ot, [facility] [id number] 10:00:00 23:59:59 Abraham Mccartney 15 2018-09-05 2018-09-05 Outpatient [facility]ot, [facility] [id number] 11:15:00 23:59:59 Abraham Mccartney 14 2018-09-05 2018-09-05 Outpatient Hiwot, [facility] [id number] 11:15:00 23:59:59 Abraham Mccartney 14 2018-09-05 2018-09-05 Outpatient VISIT, [facility] [id number] 10:45:00 23:59:59 NURSE CHEESE BLENDER 13 ECHO 2018-09-05 2018-09-05 Outpatient VISIT, [facility] [id number] 10:45:00 23:59:59 NURSE CHEESE BLENDER 13 ECHO 2018-06-05 2018-06-05 Outpatient Hiwot, [facility] [id number] 11:00:00 23:59:59 Abraham Mccartney 12 2018-02-13 2018-02-13 Outpatient Hiwot, [facility] [id number] 10:45:00 23:59:59 Abraham Mccartney 11 2018-02-13 2018-02-13 Outpatient VISIT, [facility] [id number] 10:00:00 23:59:59 NURSE CHEESE BLENDER 10 ECHO 2017-12-25 2017-12-25 Outpatient Hiwot, [facility] [id number] 11:00:00 23:59:59 Abraham Mccartney 09 2017-08-16 2017-08-17 Outpatient [facility] [id number] 15:30:00 23:59:59 00 2017-08-16 2017-08-17 Outpatient [facility] [id number] 15:30:00 23:59:59 00 2017-07-03 2017-07-03 Outpatient NEO Mi [facility] [id number] 12:00:00 23:59:59 Abrahammadan Mccartney 08 2017-07-03 2017-07-03 Outpatient NEO Mi [facility] [id number] 11:30:00 23:59:59 Abrahammadan Rogerst 07 Results Test Description Test Time Test Comments Results Result Comments Source POC-Glucose meter 2020 11:26:00 Test Item Value Reference Range Interpretation Comme nts POC-Glucose Meter (test code = 101 mg/dL 70-110 : TESTED AT [facility] [address] [facility], 7[address] 30: Child Welfare Caseworker/Techni isiah ID = [id number] for HEATHER SERRANOZINA Lab Interpretation (test code = Normal 70768-9) [facility] [id number] 11:26:00 Test Item Value Reference Range Interpretation Comments POC-GLUCOSE METER 101 mg/dL 70-110 : TESTED A T [facility] 6720 (BEAKER) (test code = BERTNE R [facility], 1538) [address]: Child Welfare Caseworker/Techni isiah ID = [id number] for HEATHER COTO CBC with platelet count + automated [id number] 08:26:00 Test Item Value Reference Range Interpretation Comments WBC (test code = 6690-2) 3.3 See_Comment L [A utomated message] The system [employer] generated this result transmitted ref erence range: 3.5 - 10 .5 K/L. The refe rence range was not u sed to interpret this result as normal/abnor mal. RBC (test code = 789-8) 2.78 See_Comment L [Au tomated message] The system [employer] generated this result transmitted ref erence range: 4.63 - 6 .08 M/L. The refe rence range was not u sed to interpret this result as normal/abnor mal. MCHC (test code = 786-4) 35.1 See_Comment L [A utomated message] The system [employer] generated this result transmitted ref erence range: 32.3 - 3 6.5 GM/DL. The refe rence range was not u sed to interpret this result as normal/abnor mal. Hematocrit (test code = 27.1 % 40.1-51 L 4544-3) MCV (test code = 787-2) 97.5 fL 79-92.2 H MCH (test code = 785-6) 34.2 pg 25.7-32.2 H RDW (test code = 788-0) 13.5 % 11.6-14.4 Platelets (test code = 30 See_Comment L [Aut omated message] 777-3) The system [employer] generated this result transmitted ref erence range: 150 - 45 0 K/CU MM. The referen ce range was not u sed to interpret this result as normal/abnor mal. MPV (test code = 11.6 fL 9.4-12.4 80857-0) nRBC (test code = 413) 0 See_Comment [Aut omated message] The system [employer] generated this result transmitted ref erence range: 0 - 0 /1 00 WBC. The refere nce range was not u sed to interpret this result as normal/abnor mal. Lab Interpretation (test Abnormal code = 81568-8) [facility] [id number] 08:26:00 Test Item Value Reference Range Interpretation Comments % Neutros (test code = 94 % 2816) % Lymphs (test code = 6 % 2817) # Neutros (test code = 3.10 K/ul 1.78-5.38 2830) # Lymphs (test code = 0.20 K/ul 1.32-3.57 L 2831) Total Counted (test code = 100 1351) RBC Morphology (test code Normal = 762) WBC Morphology (test code Normal = 487) Platelet Morphology (test Normal code = 486) Platelet Conc (test code = Decreased 3438) BEAR (test code = BEAR) Child Welfare Caseworker ID - [id number] Lab Interpretation (test Abnormal code = 80422-8) [facility] W/PLT COUNT & AUTO [id number] 08:26:00 Test Item Value Reference Range Interpretation Comments WHITE BLOOD CELL COUNT (BEAKER) 3.3 K/ L 3.5-10.5 L (test code = 775) RED BLOOD CELL COUNT (BEAKER) 2.78 M/ L 4.63-6.08 L (test code = 761) HEMOGLOBIN (BEAKER) (test code = 9.5 GM/DL 13.7-17.5 L 410) HEMATOCRIT (BEAKER) (test code = 27.1 % 40.1-51.0 L 411) MEAN CORPUSCULAR VOLUME (BEAKER) 97.5 fL 79.0-92.2 H (test code = 753) MEAN CORPUSCULAR HEMOGLOBIN 34.2 pg 25.7-32.2 H (BEAKER) (test code = 751) MEAN CORPUSCULAR HEMOGLOBIN CONC 35.1 GM/DL 32.3-36.5 (BEAKER) (test code = 752) RED CELL DISTRIBUTION WIDTH 13.5 % 11.6-14.4 (BEAKER) (test code = 412) PLATELET COUNT (BEAKER) (test code 30 K/CU MM 150-450 L = 756) MEAN PLATELET VOLUME (BEAKER) 11.6 fL 9.4-12.4 (test code = 754) NUCLEATED RED BLOOD CELLS (BEAKER) 0 /100 WBC 0-0 (test code = 413) (CELLAVISION MANUAL DIFF)2020 08:26:00 Test Item Value Reference Range Interpretation Comments NEUTROPHILS - REL 94 % (CELLAVISION)(BEAKER) (test code = 2816) LYMPHOCYTES - REL 6 % (CELLAVISION)(BEAKER) (test code = 2817) NEUTROPHILS - ABS 3.10 K/ul 1.78-5.38 (CELLAVISION)(BEAKER) (test code = 2830) LYMPHOCYTES - ABS 0.20 K/ul 1.32-3.57 L (CELLAVISION)(BEAKER) (test code = 2831) TOTAL COUNTED (BEAKER) (test code = 100 1351) RBC MORPHOLOGY (BEAKER) (test code Normal = 762) WBC MORPHOLOGY (BEAKER) (test code Normal = 487) PLT MORPHOLOGY (BEAKER) (test code Normal = 486) PLATELET CONCENTRATION Decreased (CELLAVISION)(BEAKER) (test code = 3438) Child Welfare Caseworker ID - [id number]-GLUCOSE [id number] 07:42:00 Test Item Value Reference Range Interpretation Comments POC-GLUCOSE METER 92 mg/dL 70-110 : TESTED A T [facility] 67[address] (BEAKER) (test code = [place], 1538) [address]: Child Welfare Caseworker/Techni isiah ID = [id number] for HEATHER LEOS Basic Metabolic [id number] 04:07:00 Test Item Value Reference Range Interpretation Comments Sodium (test code = 135 meq/L 136-145 L 2951-2) Potassium (test code = 4.5 meq/L 3.5-5.1 2823-3) Chloride (test code = 97 meq/L 98-107 L 2075-0) CO2 (test code = 31 meq/L 22-29 H 2028-9) BUN (test code = 30 mg/dL 7-21 H 3094-0) Creatinine (test code 0.68 mg/dL 0.57-1.25 = 2160-0) Glucose (test code = 113 mg/dL 70-105 H 2345-7) Calcium (test code = 7.8 mg/dL 8.4-10.2 L 91586-5) EGFR (test code = 137 mL/min/1.73 [place] [address]-6) NOT ACCURATE CREATININE CLEARANCE IN PREDICTING GLOMERULAR FILTRATION RATE . ESTIMATED GFR I S NOT APPLICABLE FOR DIALYSIS PATIENTS. BEAR (test code = BEAR) Child Welfare Caseworker ID - LESLEY Baker Lab Interpretation Abnormal (test code = 56761-0) [facility]IC [id number] 04:07:00 Test Item Value Reference Range Interpretation Comments SODIUM (BEAKER) 135 meq/L 136-145 L (test code = 381) POTASSIUM (BEAKER) 4.5 meq/L 3.5-5.1 (test code = 379) CHLORIDE (BEAKER) 97 meq/L 98-107 L (test code = 382) CO2 (BEAKER) (test 31 meq/L 22-29 H code = 355) BLOOD UREA NITROGEN 30 mg/dL 7-21 H (BEAKER) (test code = 354) CREATININE (BEAKER) 0.68 mg/dL 0.57-1.25 (test code = 358) GLUCOSE RANDOM 113 mg/dL 70-105 H (BEAKER) (test code = 652) CALCIUM (BEAKER) 7.8 mg/dL 8.4-10.2 L (test code = 697) EGFR (BEAKER) (test 137 mL/min/1.73 ESTIM ATED GFR IS code = 1092) sq m NOT ACCURATE CREATININE CLEARANCE IN PREDICTING GLOMERULAR FILTRATION RATE . ESTIMATED GFR I S NOT APPLICABLE FOR DIALYSIS PATIEN LONI. Child Welfare Caseworker ID - LESLEY MPOCT-GLUCOSE [id number] 23:40:00 Test Item Value Reference Range Interpretation Comments POC-GLUCOSE METER 119 mg/dL 70-110 H : TESTED A T [facility] 6720 (Poynt) (test code = [facility], 1538) [address]: Child Welfare Caseworker/Techni isiah ID = [id number] for AR ENAS (V), ANNABEL POCT-GLUCOSE [id number] 17:23:00 Test Item Value Reference Range Interpretation Comments POC-GLUCOSE METER 110 mg/dL 70-110 : TESTED A T [facility] 67[address] (Poynt) (test code = [facility] Thu[facility], 1538) [address]: Child Welfare Caseworker/Techni isiah ID = [id number] for Ba i, Garcia 2D Echo W/Doppler(CW/PW/Color)2020-11-13 14:14:59Ejection FractionSLEH ECHO HEARTLAB MKCKESSON CPACSInterface, External Ris In - 11/13/2020 2:15 PM C DTTransthoracic Echocardiography Report (TTE) Demographics Patient Name CINTHIA CUEVAS Date ofStudy 11/13/2020 DANNY Gender Male Visit Number [id number] Race Unknown Room Number 2009 Number Date of 1945 Referring Physician Radha Charles Age 74 year(s) Box Printer Kuldeep Zavaleta [facility] Auditor Medical Claims Bettie Weiss, Interpreting [place] [facility] Physician Procedure Type of Study TTE procedure:2DECHO W DOPPLER(CW/PW/COLOR) (Pending Discharge) Indications:Acute Chest Pain/ Suspected CAD.Clinical HistoryHypertension11/04/20 Craniotomy - RightHGB 9.2HCT 27.1 %Height: 72 inches Weight: 90.72 kg (200 lbs) BSA: 2.13 m^2 BMI: 27.12 kg/m^2HR: 71bpm BP: 140/74 mmHg Summary The left ventricle is chamber size (by vol index) is mildly enlarged (male - LVED 75- 89ml/m2). The following segment(s) appear hypokinetic: basal inferior wall . The other segments contract normally. LVEF by Steve's method of disk assessment is normal (55-60%) . Degree of diastolic dysfunction (LAP assessment) is inconclusive due to arrhythmia . Unable to estimate peaksystolic PA pressure; inadequate TR velocity signal. Previous Study No prior studies available for c omparison. Signature Findings Technical Quality: Technically adequate exam. Rhythm/BP Frequent ventricular ectopic beats present. Left Ventricle The leftventricle is chamber size (by vol index) is mildly enlarged (male - LVED 75-89ml/m2). No evidence of LV hypertrophy. The following segment(s) appear hypokinetic: basal inferior wall . The other segments contract normally. Global LV systolic function normal . LVEF by Steve's method of disk assessment is normal (55-60%) . Degree of diastolicdysfunction (LAP assessment) is inconclusive due to arrhythmia . Left Atrium LA size is severely enlarged (>48 ml/m2) . Right Ventricle The right ventricular chamber size and systolic function are within normal limits. Right Atrium RA size is normal. Aortic Valve Mild AoV cusp thickening.Mild aortic regurgitation. No evidence of aortic stenosis. Mitral Valve Mild MV leaflet thickening. Tricuspid Valve TV structure is normal. A trace of tricuspid regurgitation. Unable to estimate peak systolic PA pressure; inadequate TR velocity signal. Pulmonic Valve Normal PV structure and function. Aorta Aortic root size (SInus of Valsalva diameter) is normal . Pericardium No pericardial effusion is visualized. IVC/SVC/PA/PV/Pleural The estimated RA pressure by IVC dynamics 5-10mmHg . Chambers/Structures Left Atrium LA Volume: 103.45 ml LA Area: 24.45 cm^2 LA Vol. Index: 49 ml/m^2 Left Ventricle LVIDd: 5.19 cm LVIDs: 3.39 cm LV Septum Diastolic: 1.13 cm LV PW Diastolic: 1.13 cm LV FS: 34.7 % LVEDV Steve's:172.97 ml LVESV Steve's:70.59 ml LVEDVI: 81 ml/m^2 LVEF Steve's: 59.2 % LVESVI: 33 ml/m^2 LVOT Diameter: 2.38 cm Aorta Ao Root S of Heydi.: 3.59 cm Doppler/Quantitative Measurements Aortic Valve Peak Velocity: 2.16 m/s Mean Velocity: 1.53 m/s Peak Gradient: 18.6 mmHg Mean Gradient: 10.76 mmHg AV Area (continuity): 2.45 cm^2 AV VTI: 45.66 cm AV DVI: 0.55 LVOT Peak Velocity: 1.11 m/s Peak Gradient: 4.96 mmHg Mean Velocity: 0.71 m/s Mean Gradient: 2.37 mmHg LVOT Diameter: 2.38 cm LVOT VTI: 25.12 cm LVOT Area: 4.45 cm^2 LVOT SV:111.7 ml LVOT CO: 7.93 l/min LVOT CI: 3.72 l/min/m^2[facility] Center[facility]ous doppler legs [id number] 13:28:42Ejection FractionSLE ECHO HEARTLAB MKCKESSON CPACSRight Impression1. There is no deep venous obstruction in the common femoral, profundafemoral, femoral, popliteal, posterior tibial or peroneal veins wherevisualized.2. There is no superficial venous obstruction in the great saphenous veinwhere visualized.Left Impression1. There is no deep venous obstruction in the common femoral, profundafemoral, femoral, popliteal, posterior tibial or peroneal veins wherevisualized.2. There is no superficial venous obstruction in the great saphenous veinwhere visualized. Conclusions Summary Venous duplex imaging and compression of the bilateral lower extremities were performed. The veins were technically difficult to visualize due to edema and patient body habitus. The bilateral venous systems were patent and compressible with no evidence of thrombus where visualized. The venous Doppler waveforms were phasic with respiration . Signature Velocities are measured in cm/s ; Diameters are measured in cm Interface, External Ris In - 11/13/2020 1:28 PM CDTPV LAB - Lower Extremities DVT Study Demographics Patient Name CINTHIA CUEVAS Date of Study 11/12/2020 DANNY Age 74 Visit Number [id number] Gender Male Accession Number [id number] Date of 1945 Referring [facility] Room Number 2238 Physician Melvin Box Printer Zainab Villar Interpreting MOE Portillo MD ProcedureType of Study: Veins: Lower Extremities DVT Study, VENOUS DOPPLER LEG, BILATERAL. Indications for Study:R/O DVT.Patient Status:Routine.Study Location:Portable.Technical Quality:Technically Difficult.Risk FactorsHistory of Disease+ + +----- +!Diagnosis !Date !Comments !+ + + +!Hi story/Risk Factors: !01/18/2020!ASHLY, HTN, History of fall !+ + +---- +!History/Risk Factors: !11/12/2020!Swelling !! ! !Chemotherapy !+ + + +ImpressionsRight Impression1. There is no deep venous obstruction in the common femoral, profundafemoral, femoral, popliteal, posterior tibial or peroneal veins wherevisualized.2. There is no superficial venous obstruction in the great saphenous veinwhere visualized.Left Impression1. There is no deep venous obstruction in the common femoral, profundafemoral, femoral, popliteal, posterior tibial or peroneal veins wherevisualized.2. There is nosuperficial venous obstruction in the great saphenous veinwhere visualized. Conclusions Summary Venous duplex imaging and compression of the bilateral lower extremities were performed. The veins weretechnically difficult to visualize due to edema and patient body habitus. The bilateral venous systems were patent and compressible with no evidence of thrombus where visualized. The venous Doppler waveforms were phasic with respiration . Signature Velocities are measured in cm/s; Diameters are measured in [facility] Venous doppler arm, [id number] 13:28:17Ejection FractionSLEH ECHO HEARTLAB MKCKESSON CPACSRight Impression1. There is no deep venous obstruction in the jugular, subclavian, axillary,brachial, radial or ulnar veins where visualized.2. There is no superficial venous obstruction in the cephalic vein.3. The superficial vein is not visualized.Conclusions Summary Venous duplex imaging and compression of the right upper extremity was performed. The veins were technically difficult to visualize due to edema and patient body habitus. The right venous system was patent and compressible with no evidence of thrombus where visualized. Signature Velocities are measured in cm/s ; Diameters are measured in cm Interface, External Ris In - 11/13/2020 1:28 PM CDTPV LAB - Upper Extremities Veins Demographics Patient Name CINTHIA CUEVAS Date of Study 11/12/2020 DANNY Age 74 Visit Number [id number] Gender Male Accession Number [id number] Date of 1945 [facility] Physician Melvin Box Printer Zainab Villar Interpreting Meenakshi Hill T Physician ProcedureType of Study: Veins: Upper Extremities Veins, VENOUS DOPPLER ARM, RIGHT. Indications for Study:Arm swelling.Patient Status:Routine.Study Location:Portable.Technical Quality:Technically Difficult.Risk FactorsHistory of Disease+ + + --+!Diagnosis !Date !Comments !+ +--- -------+ +!History/Risk Factors: !01/18/2020!ASHLY, HTN, History of fall !+ + + +!Hi story/Risk Factors: !11/12/2020!Swelling !! ! !Chemotherapy !+ + + +ImpressionsRight Impression1. There is no deep venous obstruction in the jugular, subclavian, axillary,brachial, radial or ulnar veins where visualized.2. There is no superficial venous obstruction in the cephalic vein.3. The superficial vein is not visualized. Conclusions Summary Venous duplex imaging and compression of the right upper extremity was performed. The veins were technically difficult to visualize due to edema and patient body habitus. The right venous system was patent and compressible with no evidence of thrombus where visualized. Signature Velocities are measured in cm/s ; Diameters are measured in [facility] Methotrexate [id number] 13:04:00 Test Item Value Reference Range Interpretation Comments Methotrexate (test 0.09 umol/L code = 80862-6) BEAR (test code = BEAR) METHOTREXATE RESULT INTERPRETATION LOW DOSE: 0.50 - 1.00HIGH DOSE: 24hrs: 5.00 or Less 48hrs: 0.50 or Less 72hrs: 0.10 or Less [facility] Center[facility]ETH[facility] [id number] 13:04:00 Test Item Value Reference Range Interpretation Comments METHOTREXATE LEVEL (BEAKER) (test 0.09 umol/L code = 733) METHOTREXATE RESULT INTERPRETATION LOW DOSE: 0.50 - 1.00HIGH DOSE: 24hrs: 5.00 or Less 48hrs:0.50 or Less 72hrs: 0.10 or LessCBC W/PLT COUNT & AUTO [id number] 08:17:00 Test Item Value Reference Range Interpretation Comments WHITE BLOOD CELL COUNT (BEAKER) 5.5 K/ L 3.5-10.5 (test code = 775) RED BLOOD CELL COUNT (BEAKER) 2.73 M/ L 4.63-6.08 L (test code = 761) HEMOGLOBIN (BEAKER) (test code = 9.2 GM/DL 13.7-17.5 L 410) HEMATOCRIT (BEAKER) (test code = 27.1 % 40.1-51.0 L 411) MEAN CORPUSCULAR VOLUME (BEAKER) 99.3 fL 79.0-92.2 H (test code = 753) MEAN CORPUSCULAR HEMOGLOBIN 33.7 pg 25.7-32.2 H (BEAKER) (test code = 751) MEAN CORPUSCULAR HEMOGLOBIN CONC 33.9 GM/DL 32.3-36.5 (BEAKER) (test code = 752) RED CELL DISTRIBUTION WIDTH 13.9 % 11.6-14.4 (BEAKER) (test code = 412) PLATELET COUNT (BEAKER) (test code 40 K/CU MM 150-450 L = 756) MEAN PLATELET VOLUME (BEAKER) 12.0 fL 9.4-12.4 (test code = 754) NUCLEATED RED BLOOD CELLS (BEAKER) 0 /100 WBC 0-0 (test code = 413) (CELLAVISION MANUAL DIFF)2020-11-13 08:17:00 Test Item Value Reference Range Interpretation Comments NEUTROPHILS - REL 97 % (CELLAVISION)(BEAKER) (test code = 2816) LYMPHOCYTES - REL 1 % (CELLAVISION)(BEAKER) (test code = 2817) MONOCYTES - REL 1 % (CELLAVISION)(BEAKER) (test code = 2818) NEUTROPHILS - ABS 5.34 K/ul 1.78-5.38 (CELLAVISION)(BEAKER) (test code = 2830) LYMPHOCYTES - ABS 0.06 K/ul 1.32-3.57 L (CELLAVISION)(BEAKER) (test code = 2831) MONOCYTES - ABS 0.06 K/uL 0.30-0.82 L (CELLAVISION)(BEAKER) (test code = 2832) TOTAL COUNTED (BEAKER) (test code = 100 1351) SMUDGE CELLS (BEAKER) (test code = Present 1371) GIANT PLATELETS (BEAKER) (test code Present = 313) HYPERSEGMENTATION Present (CELLAVISION)(BEAKER) (test code = 3445) POIKILOCYTES (BEAKER) (test code = 1+ few 966) PLATELET CONCENTRATION Decreased (CELLAVISION)(BEAKER) (test code = 3438) Child Welfare Caseworker ID - [id number] ID - Lakia Ho comments: Slide comments: METHOTREXATE [id number] 06:51:00 Test Item Value Reference Range Interpretation Comments METHOTREXATE LEVEL 0.11 umol/L METHOTREX ATE = 0.11 (BEAKER) (test code = umol\\L MXT HOURS = 733) 72[facility] METHOTREXATE RESULT INTERPRETATION LOW DOSE: 0.50 - 1.00HIGH DOSE: 24hrs: 5.00 or Less 48hrs:0.50 or Less 72hrs: 0.10 or LessBASIC METABOLIC PANEL 2020-11-13 05:34:00 Test Item Value Reference Range Interpretation Comments SODIUM (BEAKER) 135 meq/L 136-145 L (test code = 381) POTASSIUM (BEAKER) 4.4 meq/L 3.5-5.1 (test code = 379) CHLORIDE (BEAKER) 97 meq/L 98-107 L (test code = 382) CO2 (BEAKER) (test 33 meq/L 22-29 H code = 355) BLOOD UREA NITROGEN 31 mg/dL 7-21 H (BEAKER) (test code = 354) CREATININE (BEAKER) 0.74 mg/dL 0.57-1.25 (test code = 358) GLUCOSE RANDOM 116 mg/dL 70-105 H (BEAKER) (test code = 652) CALCIUM (BEAKER) 7.8 mg/dL 8.4-10.2 L (test code = 697) EGFR (BEAKER) (test 125 mL/min/1.73 ESTIM ATED GFR IS code = 1092) sq m NOT ACCURATE CREATININE CLEARANCE IN PREDICTING GLOMERULAR FILTRATION RATE . ESTIMATED GFR I S NOT APPLICABLE FOR DIALYSIS PATIEN TS. Child Welfare Caseworker ID - BSPOCT-GLUCOSE [id number] 18:32:00 Test Item Value Reference Range Interpretation Comments POC-GLUCOSE METER 136 mg/dL 70-110 H : TESTED A T [facility] 6720 (BEAKER) (test code = [place], 1538) [address]: Child Welfare Caseworker/Techni isiah ID = [id number] for TEJA SANCHEZ Troponin [id number] 10:49:00 Test Item Value Reference Range Interpretation Comments Troponin I (test code = 0.11 ng/mL 0-0.03 H 38457-6) BEAR (test code = BEAR) Troponin I (TnI) levels must be interpreted in the context of the presenting symptoms and the clinical findings. Elevated TnI levels indicate myocardial damage, but are not specific for ischemic heart disease. Elevated TnI levels are seen in patients with other cardiac conditions (including myocarditis and congestive heart failure), and slight TnI elevations occur in patients with other conditions, including sepsis, renal failure, acidosis, acute neurological disease, and persistent tachyarrhythmia.Opera tor ID - LYNN C Lab Interpretation (test Abnormal code = 37580-6) [facility] [id number] 10:49:00 Test Item Value Reference Range Interpretation Comments TROPONIN I (BEAKER) (test code = 0.11 ng/mL 0.00-0.03 H 397) Troponin I (TnI) levels must be interpreted in the context of the presenting symptoms and the clinical findings. Elevated TnI levels indicate myocardial damage, but are not specific for ischemic heart disease. Elevated TnI levels are seen in patients with other cardiac conditions (including myocarditis and congestive heart failure), and slight TnI elevations occur in patients with other conditions, including sepsis, renal failure, acidosis, acute neurological disease, and persistent tachyarrhythmia.Child Welfare Caseworker ID - LYNN CManual Differential 2020-11-12 07:42:00 Test Item Value Reference Range Interpretation Comments % Neutros (manual) (test 95 % code = 1359) % Lymphs (manual) (test 3 % code = 1360) % Monos (manual) (test 2 % code = 1361) # Neutros (manual) (test 7.32 See_Comment [A utomated message] code = 1365) The system [employer] generated this result transmitted ref erence range: 1.80 - 8 .00 K/L. The refe rence range was not u sed to interpret this result as normal/abnor mal. # Lymphs (manual) (test 0.23 See_Comment L [Au tomated message] code = 1366) The system [employer] generated this result transmitted ref erence range: 1.48 - 4 .50 K/L. The refe rence range was not u sed to interpret this result as normal/abnor mal. # Monos (manual) (test 0.15 See_Comment [Aut omated message] code = 1367) The system [employer] generated this result transmitted ref erence range: 0.00 - 1 .30 K/L. The refe rence range was not u sed to interpret this result as normal/abnor mal. Total Counted (test code 100 = 1351) WBC Morphology (test Normal code = 487) Platelet Morphology Normal (test code = 486) Anisocytosis (test code 1+ few = 961) Poikilocytes (test code 1+ few = 966) Lab Interpretation (test Abnormal code = 01166-1) [facility] W/PLT COUNT & AUTO [id number] 07:42:00 Test Item Value Reference Range Interpretation Comments WHITE BLOOD CELL COUNT (BEAKER) 7.7 K/ L 3.5-10.5 (test code = 775) RED BLOOD CELL COUNT (BEAKER) 2.85 M/ L 4.63-6.08 L (test code = 761) HEMOGLOBIN (BEAKER) (test code = 9.6 GM/DL 13.7-17.5 L 410) HEMATOCRIT (BEAKER) (test code = 28.4 % 40.1-51.0 L 411) MEAN CORPUSCULAR VOLUME (BEAKER) 99.6 fL 79.0-92.2 H (test code = 753) MEAN CORPUSCULAR HEMOGLOBIN 33.7 pg 25.7-32.2 H (BEAKER) (test code = 751) MEAN CORPUSCULAR HEMOGLOBIN CONC 33.8 GM/DL 32.3-36.5 (BEAKER) (test code = 752) RED CELL DISTRIBUTION WIDTH 14.0 % 11.6-14.4 (BEAKER) (test code = 412) PLATELET COUNT (BEAKER) (test code 52 K/CU MM 150-450 L = 756) MEAN PLATELET VOLUME (BEAKER) 11.4 fL 9.4-12.4 (test code = 754) NUCLEATED RED BLOOD CELLS (BEAKER) 0 /100 WBC 0-0 (test code = 413) (MANUAL DIFFERENTIAL)2020-11-12 07:42:00 Test Item Value Reference Range Interpretation Comments NEUTROPHILS - REL (DIFF) (BEAKER) 95 % (test code = 1359) LYMPHOCYTES - REL (DIFF) (BEAKER) 3 % (test code = 1360) MONOCYTES - REL (DIFF) (BEAKER) 2 % (test code = 1361) NEUTROPHILS - ABS (DIFF) (BEAKER) 7.32 K/ L 1.80-8.00 (test code = 1365) LYMPHOCYTES - ABS (DIFF) (BEAKER) 0.23 K/ L 1.48-4.50 L (test code = 1366) MONOCYTES - ABS (DIFF) (BEAKER) 0.15 K/ L 0.00-1.30 (test code = 1367) TOTAL COUNTED (BEAKER) (test code = 100 1351) WBC MORPHOLOGY (BEAKER) (test code Normal = 487) PLT MORPHOLOGY (BEAKER) (test code Normal = 486) ANISOCYTOSIS (BEAKER) (test code = 1+ few 961) POIKILOCYTES (BEAKER) (test code = 1+ few 966) pH, [id number] 02:23:00 Test Item Value Reference Range Interpretation Comments pH, UA (test code = 7.0 5.0-8.0 5803-2) BEAR (test code = BEAR) Child Welfare Caseworker ID - [auto] Lab Interpretation (test Normal code = 58753-4) [id number] 02:23:00 Test Item Value Reference Range Interpretation Comments PH UA (BEAKER) (test code = 467) 7.0 5.0-8.0 Child Welfare Caseworker ID - [auto]Comprehensive metabolic [id number] 01:41:00 Test Item Value Reference Range Interpretation Comments Protein, Total (test 4.6 See_Comment L [Autom ated code = 2885-2) message] The system which generated this result transmit lana reference range : 6.0 - 8.3 gm/dL . The reference range was not u sed to interpret th is result as normal/abnormal . Albumin (test code = 2.7 g/dL 3.5-5 L 71153-1) Alkaline Phosphatase 66 U/L 40-150 (test code = 6768-6) Total Bilirubin (test 0.7 mg/dL 0.2-1.2 code = 1975-2) Sodium (test code = 136 meq/L 633-592 4499-2) Potassium (test code 3.7 meq/L 3.5-5.1 = 2823-3) Chloride (test code = 94 meq/L 98-107 L 5-0) CO2 (test code = 32 meq/L 22-29 H 8-9) BUN (test code = 32 mg/dL 7-21 H 3094-0) Creatinine (test code 0.82 mg/dL 0.57-1.25 = 2160-0) Glucose (test code = 140 mg/dL 70-105 H 2345-7) Calcium (test code = 7.9 mg/dL 8.4-10.2 L 49510-5) AST (test code = 35 U/L 5-34 H 1920-8) ALT (test code = 37 U/L 6-55 1742-6) EGFR (test code = 111 mL/min/1.73 [place] [address]-1) NOT ACCURATE CREATININE CLEARANCE IN PREDICTING GLOMERULAR FILTRATION RATE . ESTIMATED GFR I S NOT APPLICABLE FOR DIALYSIS PATIEN TS. SIFUENTES (test code = BEAR) Child Welfare Caseworker ID - BS Lab Interpretation Abnormal (test code = 56385-4) [facility] [id number] 01:41:00 Test Item Value Reference Range Interpretation Comments TOTAL PROTEIN 4.6 gm/dL 6.0-8.3 L (BEAKER) (test code = 770) ALBUMIN (BEAKER) 2.7 g/dL 3.5-5.0 L (test code = 1145) ALKALINE PHOSPHATASE 66 U/L 40-150 (BEAKER) (test code = 346) BILIRUBIN TOTAL 0.7 mg/dL 0.2-1.2 (BEAKER) (test code = 377) SODIUM (BEAKER) (test 136 meq/L 136-145 code = 381) POTASSIUM (BEAKER) 3.7 meq/L 3.5-5.1 (test code = 379) CHLORIDE (BEAKER) 94 meq/L 98-107 L (test code = 382) CO2 (BEAKER) (test 32 meq/L 22-29 H code = 355) BLOOD UREA NITROGEN 32 mg/dL 7-21 H (BEAKER) (test code = 354) CREATININE (BEAKER) 0.82 mg/dL 0.57-1.25 (test code = 358) GLUCOSE RANDOM 140 mg/dL 70-105 H (BEAKER) (test code = 652) CALCIUM (BEAKER) 7.9 mg/dL 8.4-10.2 L (test code = 697) AST (SGOT) (BEAKER) 35 U/L 5-34 H (test code = 353) ALT (SGPT) (BEAKER) 37 U/L 6-55 (test code = 347) EGFR (BEAKER) (test 111 ESTIMATE D GFR IS code = 1092) mL/min/1.73 sq NOT ACCURA TE m CREATININE CLEARANCE IN PREDICTING GLOMERULAR FILTRATION RATE . ESTIMATED GFR I S NOT APPLICABLE FOR DIALYSIS PATIEN TS. Child Welfare Caseworker ID - BSBASIC METABOLIC [id number] 01:40:00 Test Item Value Reference Range Interpretation Comments SODIUM (BEAKER) 135 meq/L 136-145 L (test code = 381) POTASSIUM (BEAKER) 3.6 meq/L 3.5-5.1 (test code = 379) CHLORIDE (BEAKER) 94 meq/L 98-107 L (test code = 382) CO2 (BEAKER) (test 32 meq/L 22-29 H code = 355) BLOOD UREA NITROGEN 31 mg/dL 7-21 H (BEAKER) (test code = 354) CREATININE (BEAKER) 0.78 mg/dL 0.57-1.25 (test code = 358) GLUCOSE RANDOM 139 mg/dL 70-105 H (BEAKER) (test code = 652) CALCIUM (BEAKER) 7.8 mg/dL 8.4-10.2 L (test code = 697) EGFR (BEAKER) (test 118 mL/min/1.73 ESTIM ATED GFR IS code = 1092) sq m NOT ACCURATE CREATININE CLEARANCE IN PREDICTING GLOMERULAR FILTRATION RATE . ESTIMATED GFR I S NOT APPLICABLE FOR DIALYSIS PATIEN TS. Child Welfare Caseworker ID - BSTROPONIN [id number] 01:39:00 Test Item Value Reference Range Interpretation Comments TROPONIN I (BEAKER) (test code = 0.11 ng/mL 0.00-0.03 H 397) Troponin I (TnI) levels must be interpreted in the context of the presenting symptoms and the clinical findings. Elevated TnI levels indicate myocardial damage, but are not specific for ischemic heart disease. Elevated TnI levels are seen in patients with other cardiac conditions (including myocarditis and congestive heart failure), and slight TnI elevations occur in patients with other conditions, including sepsis, renal failure, acidosis, acute neurological disease, and persistent tachyarrhythmia.Child Welfare Caseworker ID - BSPOCT-GLUCOSE METER 2020-11-11 17:49:00 Test Item Value Reference Range Interpretation Comments POC-GLUCOSE METER 100 mg/dL 70-110 : TESTED A T [facility] 6720 (BEAKER) (test code = ANIL CHAVIRA 1538) [address]: Child Welfare Caseworker/Techni isiah ID = [id number] for LES URIBE TROPONIN [id number] 14:21:00 Test Item Value Reference Range Interpretation Comments TROPONIN I (LONNIE) (test code = 0.10 ng/mL 0.00-0.03 H 397) Troponin I (TnI) levels must be interpreted in the context of the presenting symptoms and the clinical findings. Elevated TnI levels indicate myocardial damage, but are not specific for ischemic heart disease. Elevated TnI levels are seen in patients with other cardiac conditions (including myocarditis and congestive heart failure), and slight TnI elevations occur in patients with other conditions, including sepsis, renal failure, acidosis, acute neurological disease, and persistent tachyarrhythmia.Child Welfare Caseworker ID - DBMETHOTREXATE LEVEL 2020-11-11 14:01:00 Test Item Value Reference Range Interpretation Comments METHOTREXATE LEVEL METHOTREX ATE = 0.24 (LONNIE) (test code = umol\\L LAST DOSE 11/09/20 733) = TIME 0830 AM 48HRSTEST PERFO RMED BY TCH METHOTREXATE RESULT INTERPRETATION LOW DOSE: 0.50 - 1.00HIGH DOSE: 24hrs: 5.00 or Less 48hrs:0.50 or Less 72hrs: 0.10 or LessPOCT-GLUCOSE METER 2020-11-11 12:42:00 Test Item Value Reference Range Interpretation Comments POC-GLUCOSE METER 111 mg/dL 70-110 H : TESTED A T [facility] 6720 (LONNIE) (test code = ANIL Cordova [facility], 1538) [address]: Child Welfare Caseworker/Techni isiah ID = [id number] for SALVADOR MOREAU Hepatic function [id number] 09:51:00 Test Item Value Reference Range Interpretation Comments Protein, Total (test 4.5 See_Comment L [Autom ated code = 2885-2) message] The system which generated this result transmit lana reference range : 6.0 - 8.3 gm/dL . The reference range was not u sed to interpret th is result as normal/abnormal . Albumin (test code = 2.6 g/dL 3.5-5 L 11384-7) Total Bilirubin (test 0.7 mg/dL 0.2-1.2 code = 1975-2) Bilirubin, Direct 0.3 mg/dL 0.1-0.5 (test code = 1968-7) Alkaline Phosphatase 61 U/L 40-150 (test code = 6768-6) AST (test code = 33 U/L 5-34 1920-8) ALT (test code = 28 U/L 6-55 1742-6) BEAR (test code = BEAR) Child Welfare Caseworker ID - DB Lab Interpretation Abnormal (test code = 60536-6) [facility] [id number] 09:51:00 Test Item Value Reference Range Interpretation Comments TOTAL PROTEIN (BEAKER) (test code = 4.5 gm/dL 6.0-8.3 L 770) ALBUMIN (BEAKER) (test code = 1145) 2.6 g/dL 3.5-5.0 L BILIRUBIN TOTAL (BEAKER) (test code 0.7 mg/dL 0.2-1.2 = 377) BILIRUBIN DIRECT (BEAKER) (test 0.3 mg/dL 0.1-0.5 code = 706) ALKALINE PHOSPHATASE (BEAKER) (test 61 U/L 40-150 code = 346) AST (SGOT) (BEAKER) (test code = 33 U/L 5-34 353) ALT (SGPT) (BEAKER) (test code = 28 U/L 6-55 347) Child Welfare Caseworker ID - DBECG 12 [id number] 09:22:18Interface, External Ris In - 11/11/2020 9:22 AM CDTVentricular Rate 69 BPMAtrial Rate 69 BPMP-R Interval 196 msQRS Duration 92 msQ-T Interval 454 msQTC Calculation(Bazett) 486 msP [place] 83 degreesR [place] 12 degreesT [place] 28 degreesSinus rhythm with frequent Premature ventricular complexesProlonged QTAbnormal ECGWhen compared with ECG of 11-NOV-2020 04:43,No significant change was foundConfirmed by MD REGGIE, VAN Izquierdo ([id number]) on 11/11/2020 9:22:15 [facility], NON [id number] 09:22:00Reason for exam:->r/o pnaShould this be performed at the bedside?->Yes [facility] : 1945 Sex: MFINAL REPORT RAD, CHEST, 1 VIEW, NON DEPT INDICATION: r/o pna COMPAR AL: 11/03/2020 FINDINGS: Portable frontal view of the chest. IMPRESSION: Support Lines: Port-A-Cath tip overlies the SVC. Lungs and pleura: Lungs are clear No pneumothorax.Heart and mediastinum: Stable contours. Stable surgical changes.Additional findings: None. Signed: Deonna De La O Verified Date/Time: 11/11/2020 09:22:06 Reading Location: [facility] Radiology Reading Room XR chest 1 view portable / [id number] 09:22:00 Interface, External Ris In - 11/11/2020 9:24 AM CDTFINAL REPORT RAD, CHEST, 1 VIEW, NON DEPT INDICATION: r/o pna COMPARISON: 11/03/2020 FINDINGS: Portable frontal view of the chest. IMPRESSION: Support Lines: Port-A-Cath tip overlies the SVC. Lungs and pleura: Lungs are clear No pneumothorax.Heart and mediastinum: Stable contours. Stable surgical changes.Additional findings: None. Signed: Deonna De La O Verified Date/Time: 11/11/2020 09:22:06 Reading Location: [facility] Radiology Reading Room [facility] campusD-[id number] 09:10:00 Test Item Value Reference Range Interpretation Comments D-Dimer, Quant (test 2.34 See_Comment H [Autom ated code = 20917-0) message] The system which generated this result transmitted reference range : <0.50 MG/L FEU. The reference range was not used to interpr et this result as normal/abnormal . BEAR (test code = BEAR) Intended Use: The D-Dimer Assay can be used to aid in the diagnosis of Deep Vein Thrombosis (DVT) and Pulmonary Embolism Disease (PED).In patients with low pre-test probability, various studies concerning STA Liatest D-dimer test have reported that with a cutoff value of 0.50 MG/L FEU, the Negative Predictive Value (NPV) regarding the exclusion of thrombosis is within 95-100% range. Lab Interpretation Abnormal (test code = 95863-6) [facility]-[id number] 09:10:00 Test Item Value Reference Range Interpretation Comments D-DIMER QUANTITATIVE (BEAKER) 2.34 MG/L FEU <0.50 H (test code = 671) Intended Use: The D-Dimer Assay can be used to aid in the diagnosis of Deep Vein Thrombosis (DVT) and Pulmonary Embolism Disease (PED).In patients with low pre- test probability, various studies concerning STA Liatest D-dimer test have reported that with a cutoff value of 0.50 MG/L FEU, the Negative Predictive Value (NPV) regarding the exclusion of thrombosis is within 95-100% range.CBC W/PLT COUNT & AUTO [id number] 08:32:00 Test Item Value Reference Range Interpretation Comments WHITE BLOOD CELL COUNT (BEAKER) 8.8 K/ L 3.5-10.5 (test code = 775) RED BLOOD CELL COUNT (BEAKER) 2.95 M/ L 4.63-6.08 L (test code = 761) HEMOGLOBIN (BEAKER) (test code = 10.1 GM/DL 13.7-17.5 L 410) HEMATOCRIT (BEAKER) (test code = 29.3 % 40.1-51.0 L 411) MEAN CORPUSCULAR VOLUME (BEAKER) 99.3 fL 79.0-92.2 H (test code = 753) MEAN CORPUSCULAR HEMOGLOBIN 34.2 pg 25.7-32.2 H (BEAKER) (test code = 751) MEAN CORPUSCULAR HEMOGLOBIN CONC 34.5 GM/DL 32.3-36.5 (BEAKER) (test code = 752) RED CELL DISTRIBUTION WIDTH 13.8 % 11.6-14.4 (BEAKER) (test code = 412) PLATELET COUNT (BEAKER) (test code 58 K/CU MM 150-450 L = 756) MEAN PLATELET VOLUME (BEAKER) 11.9 fL 9.4-12.4 (test code = 754) NUCLEATED RED BLOOD CELLS (BEAKER) 0 /100 WBC 0-0 (test code = 413) (CELLAVISION MANUAL DIFF)2020-11-11 08:32:00 Test Item Value Reference Range Interpretation Comments NEUTROPHILS - REL 96 % (CELLAVISION)(BEAKER) (test code = 2816) LYMPHOCYTES - REL 2 % (CELLAVISION)(BEAKER) (test code = 2817) MONOCYTES - REL 2 % (CELLAVISION)(BEAKER) (test code = 2818) NEUTROPHILS - ABS 8.45 K/ul 1.78-5.38 H (CELLAVISION)(BEAKER) (test code = 2830) LYMPHOCYTES - ABS 0.18 K/ul 1.32-3.57 L (CELLAVISION)(BEAKER) (test code = 2831) MONOCYTES - ABS 0.18 K/uL 0.30-0.82 L (CELLAVISION)(BEAKER) (test code = 2832) TOTAL COUNTED (BEAKER) (test code = 100 1351) PLT MORPHOLOGY (BEAKER) (test code Normal = 486) SMUDGE CELLS (BEAKER) (test code = Present 1371) POIKILOCYTES (BEAKER) (test code = 1+ few 966) ARTIFACT (CELLAVISION)(BEAKER) Present (test code = 3432) PLATELET CONCENTRATION Decreased (CELLAVISION)(BEAKER) (test code = 3438) Child Welfare Caseworker ID - [id number] ID - Fab Taylor comments: Slide comments:PH, URINE 2020-11-11 07:47:00 Test Item Value Reference Range Interpretation Comments PH UA (BEAKER) (test code = 467) 8.0 5.0-8.0 Child Welfare Caseworker ID - [auto]BASIC METABOLIC [id number] 07:37:00 Test Item Value Reference Range Interpretation Comments SODIUM (BEAKER) 134 meq/L 136-145 L (test code = 381) POTASSIUM (BEAKER) 4.0 meq/L 3.5-5.1 (test code = 379) CHLORIDE (BEAKER) 93 meq/L 98-107 L (test code = 382) CO2 (BEAKER) (test 34 meq/L 22-29 H code = 355) BLOOD UREA NITROGEN 38 mg/dL 7-21 H (BEAKER) (test code = 354) CREATININE (BEAKER) 0.82 mg/dL 0.57-1.25 (test code = 358) GLUCOSE RANDOM 115 mg/dL 70-105 H (BEAKER) (test code = 652) CALCIUM (BEAKER) 7.6 mg/dL 8.4-10.2 L (test code = 697) EGFR (BEAKER) (test 111 mL/min/1.73 ESTIM ATED GFR IS code = 1092) sq m NOT ACCURATE CREATININE CLEARANCE IN PREDICTING GLOMERULAR FILTRATION RATE . ESTIMATED GFR I S NOT APPLICABLE FOR DIALYSIS PATIEN TS. Child Welfare Caseworker ID - EDASISARS-CoV2/RT-PCR (Asymptomatic ONLY)2020-11-11 03:10:00 Test Item Value Reference Range Interpretation Comments SARS-COV2/RT-PCR Negative Not Detected, (test code = Negative, See 89013-4) external report for linked test SARS-COV-2 [facility] PERFORMING LAB (test code = 96646-5) BEAR (test code = Negative result for this BEAR) test determines that SARS-CoV-2 RNA was not present in the specimen above the Limit of Detection (LOD). However, Negative results do not preclude SARS-CoV-2 infection and should not be used as the sole basis for treatment or patient management decisions. Negative results must be combined with clinical observations, patient history, and epidemiological information. A false negative result may occur if a specimen is improperly collected, transported or handled. A false negative result should be considered if patient's recent exposures or clinical presentation indicate that COVID-19 (SARS-CoV-2) is likely and diagnostic tests for other causes of illness are negative. Re-testing should be considered in cases of suspected false negatives. The limit of detection for this assay is 100 copies/mL. This SARS CoV-2 test is a real-time RT-PCR test intended for the qualitative detection of nucleic acid from SARS-CoV-2 in a nasopharyngeal swab specimen collected from individuals suspected of COVID-19 by their healthcare provider. This test has not been Food and Drug Administration (FDA) cleared or approved. This is a modified version of an approved Emergency Use Authorization (EUA) and is in the process of review by the FDA. Once authorized by the FDA, the issued EUA will be effective until the declaration that circumstances exist justifying the authorization of the emergency use of in vitro diagnostic tests for detection and/or diagnosis of COVID-19 is terminated under Section 564(b)(2) of the Act or the EUA is revoked under Section 564(g) of the Act. Testing was performed using the Ever[employer] SARS-CoV-2 assay. Fact Sheet for Healthcare Providers:https://www.[employer]/shakila/RT_SA YC-RhJ-8_WKB_Uvoy_Uukck_ 51-553552.pdf Fact Sheet for Healthcare Patients:https://www.[employer]/shakila/RT_SAR F-YaZ-5_Wdfacqp_Ksyp_Mtx et_EN_51-701903R5.pdf Performing Laboratory:[address] [place], [place] [address] [place], [place] [address]ARS-COV2/RT-PCR ([facility])2020-11-11 03:10:00 Test Item Value Reference Range Interpretation Comments SARS-COV2/RT-PCR (test Negative Not Detected, Negative, code = 8878860) See external report for linked test SARS-COV-2 PERFORMING LAB [facility]LEG (test code = 1609478) Negative result for this test determines that SARS-CoV-2 RNA was not present in the specimen above the Limit of Detection (LOD). However, Negative results do not preclude SARS-CoV-2 infection and should not be used as the sole basis for treatment or patient management decisions. Negative results mustbe combined with clinical observations, patient history, and epidemiological information. A false negative result may occur if a specimen is improperly collected, transported or handled. A false negative result should be considered if patient's recent exposures or clinical presentation indicate that COVID-19 (SARS-CoV-2) is likely and diagnostic tests for other causes of illness are negative. Re-testing should be considered in cases of suspected false negatives.The limit of detection for this assay is 100 copies/mL.This SARS CoV-2 test is a real-time RT-PCR test intended for the qualitative detection of nucleic acid from SARS-CoV-2 in a nasopharyngeal swab specimen collected from individuals suspected of COVID-19 by their healthcare provider.This test has not been Food and Drug Administration (FDA) cleared or approved. This is a modified version of an approved Emergency Use Authorization (EUA) and is in the process of review by the FDA. Once authorized by the FDA, the issued EUA will be effective until the declaration that circumstances exist justifying the authorization of the emergency use of in vitro diagnostic tests for detection and/or diagnosis of COVID-19 is terminated under Section 564(b)(2) of the Act or the EUA is revoked under Section 564(g) of the Act.Testing was performed using the [employer] SARS-CoV-2 assay.Fact Sheet for Healthcare Providers:https://www.[employer].vargas/shakila/ FP_NVGC-McP-0_IQY_Azqo_Slyzx_23-505196.pdfFact Sheet for Healthcare Patients:https://www.[employer] ning/shakila/AA_JSYX-GaE-0_Tucufpy_Jfrt_Epihj_YF_98-208074S1.pdfPerforming Laboratory:[place] [address] [place] [address] POCT-GLUCOSE [id number] 21:48:00 Test Item Value Reference Range Interpretation Comments POC-GLUCOSE METER 163 mg/dL 70-110 H : Notified RN/MD: TESTED (LONNIE) (test code AT [place] [address] JONATHAN = 1538) [facility], [facility] 30: Child Welfare Caseworker/Techni isiah ID = [id number] for MAYRA MEADOWS Type and screen, [id number] 19:39:00 Test Item Value Reference Range Interpretation Comments ABO/RH AUTOMATED (LONNIE) (test B POSITIVE code = 2260) Ab Scrn (test code = 890-4) NEGATIVE [facility] [id number] 18:37:00 Test Item Value Reference Range Interpretation Comments POC-GLUCOSE METER 132 mg/dL 70-110 H : TESTED A T [facility] 6720 (BEAKER) (test code = ANIL Cordova [facility], 1538) [address]: Child Welfare Caseworker/Techni isiah ID = [id number] for DEMI SNEED METHOTREXATE [id number] 16:00:00 Test Item Value Reference Range Interpretation Comments METHOTREXATE LEVEL (BEAKER) See scanned results (test code = 733) METHOTREXATE RESULT INTERPRETATION LOW DOSE: 0.50 - 1.00HIGH DOSE: 24hrs: 5.00 or Less 48hrs:0.50 or Less 72hrs: 0.10 or LessPOCT-GLUCOSE METER 2020-11-10 12:31:00 Test Item Value Reference Range Interpretation Comments POC-GLUCOSE METER 143 mg/dL 70-110 H : TESTED A T [facility] 6720 (BEAKER) (test code = ANIL Cordova [facility], 1538) [address]: Child Welfare Caseworker/Techni isiah ID = [id number] for DEMI SNEED CBC W/PLT COUNT & AUTO [id number] 08:55:00 Test Item Value Reference Range Interpretation Comments WHITE BLOOD CELL COUNT (BEAKER) 6.0 K/ L 3.5-10.5 (test code = 775) RED BLOOD CELL COUNT (BEAKER) 3.02 M/ L 4.63-6.08 L (test code = 761) HEMOGLOBIN (BEAKER) (test code = 10.2 GM/DL 13.7-17.5 L 410) HEMATOCRIT (BEAKER) (test code = 29.9 % 40.1-51.0 L 411) MEAN CORPUSCULAR VOLUME (BEAKER) 99.0 fL 79.0-92.2 H (test code = 753) MEAN CORPUSCULAR HEMOGLOBIN 33.8 pg 25.7-32.2 H (BEAKER) (test code = 751) MEAN CORPUSCULAR HEMOGLOBIN CONC 34.1 GM/DL 32.3-36.5 (BEAKER) (test code = 752) RED CELL DISTRIBUTION WIDTH 13.5 % 11.6-14.4 (BEAKER) (test code = 412) PLATELET COUNT (BEAKER) (test code 61 K/CU MM 150-450 L = 756) MEAN PLATELET VOLUME (BEAKER) 11.3 fL 9.4-12.4 (test code = 754) NUCLEATED RED BLOOD CELLS (BEAKER) 0 /100 WBC 0-0 (test code = 413) (CELLAVISION MANUAL DIFF)2020-11-10 08:55:00 Test Item Value Reference Range Interpretation Comments NEUTROPHILS - REL 84 % (CELLAVISION)(BEAKER) (test code = 2816) LYMPHOCYTES - REL 8 % (CELLAVISION)(BEAKER) (test code = 2817) MONOCYTES - REL 7 % (CELLAVISION)(BEAKER) (test code = 2818) NEUTROPHILS - ABS 5.04 K/ul 1.78-5.38 (CELLAVISION)(BEAKER) (test code = 2830) LYMPHOCYTES - ABS 0.48 K/ul 1.32-3.57 L (CELLAVISION)(BEAKER) (test code = 2831) MONOCYTES - ABS 0.42 K/uL 0.30-0.82 (CELLAVISION)(BEAKER) (test code = 2832) TOTAL COUNTED (BEAKER) (test code = 100 1351) PLT MORPHOLOGY (BEAKER) (test code Normal = 486) SMUDGE CELLS (BEAKER) (test code = Present 1371) HYPERSEGMENTATION Present (CELLAVISION)(BEAKER) (test code = 3445) POIKILOCYTES (BEAKER) (test code = 1+ few 966) OVALOCYTES (BEAKER) (test code = 1+ few 477) PLATELET CONCENTRATION Decreased (CELLAVISION)(BEAKER) (test code = 3438) Child Welfare Caseworker ID - Lakia Ho comments: Slide comments:POCT-GLUCOSE METER 2020-11-10 07:58:00 Test Item Value Reference Range Interpretation Comments POC-GLUCOSE METER 157 mg/dL 70-110 H : TESTED A T [facility] 6720 (BEAKER) (test code = ANIL CHAVIRA, 1538) [address]: Child Welfare Caseworker/Techni isiah ID = [id number] for SA NCHEZ, JERALD PH, [id number] 07:23:00 Test Item Value Reference Range Interpretation Comments PH UA (BEAKER) (test code = 467) 8.0 5.0-8.0 BASIC METABOLIC [id number] 06:08:00 Test Item Value Reference Range Interpretation Comments SODIUM (BEAKER) 135 meq/L 136-145 L (test code = 381) POTASSIUM (BEAKER) 3.9 meq/L 3.5-5.1 (test code = 379) CHLORIDE (BEAKER) 92 meq/L 98-107 L (test code = 382) CO2 (BEAKER) (test 34 meq/L 22-29 H code = 355) BLOOD UREA NITROGEN 30 mg/dL 7-21 H (BEAKER) (test code = 354) CREATININE (BEAKER) 0.90 mg/dL 0.57-1.25 (test code = 358) GLUCOSE RANDOM 135 mg/dL 70-105 H (BEAKER) (test code = 652) CALCIUM (BEAKER) 8.1 mg/dL 8.4-10.2 L (test code = 697) EGFR (BEAKER) (test 100 mL/min/1.73 ESTIM ATED GFR IS code = 1092) sq m NOT ACCURATE CREATININE CLEARANCE IN PREDICTING GLOMERULAR FILTRATION RATE . ESTIMATED GFR I S NOT APPLICABLE FOR DIALYSIS PATIEN TS. Child Welfare Caseworker ID - LESLEY MPOCT-GLUCOSE [id number] 20:31:00 Test Item Value Reference Range Interpretation Comments POC-GLUCOSE METER 174 mg/dL 70-110 H : TESTED A T BSC 6720 (BEAKER) (test code = HOLLIEPAPITO Cordova [facility], 1538) [id number]: Child Welfare Caseworker/Techni isiah ID = [id number] for LEANDRA ALCARAZ TISSUE [id number] 18:09:00Surgical Pathology Report Case: [id number] Authorizing Provider: Luis Felipe Jiménez MD Collected: 11/04/2020 09:25 AM Ordering Location: [facility] PERIOPERATIVE Received: 11/04/2020 09:30 AM SERVICES Pathologist: Dexter Goldman MD Specimens: A) - Brain, Right, right frontal brain lesion B) -Brain, Right, right frontal brain lesion A-B. 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 A high proliferation index is associated with aggressive disease. High Grade Large B Cell FISH evaluation and additional immunostains for CD30 and MATT are pending for further classification. [id number]; [id number]; [id number]; [id number] of diffuse large B cell lymphoma, now with brain lesionsBrain massA. Received fresh from the OR for intraoperative frozen section diagnosis labeled with the patient's name, accession number and "right frontal brain lesion" are 2 fam-pink soft tissue fragments measuring in aggregate 0.8 x 0.5 x 0.3 cm. The specimen is entirely submitted for frozen section as FS A1. A touch prep is also made.B. Received fresh from the OR labeled with the patient's name, accession number and "right frontal brain lesion nose "are multiple fragments of fam-pink soft tissue measuring in aggregate 1.2 x 0.8 x 0.5 cm. A portion issubmitted for flow cytometry in RPMI. The remainder of the tissue is submitted as B1.Brain mass, excision FS A1: Malignant neoplasm consistent with lymphomaThe results are verbally reported by Dr. Cruz to Dr. Jiménez in OR 12 on 04 November 2020 at 9:46 AM.Sections show a diffuse proliferation ofatypical lymphoid cells. The neoplastic cells are medium size and positive for CD20, BCL6, BCL2 andc-MYC. They are negative for CD3, CD5, CD10, CAM5.2, CD56, MUM1. KI67 is performed and show a proliferation index of over 90%.The interpretation of this case included the use of immunohistochemistry orspecial stains.Control Slides Examined: In-house known positive controls were evaluated along with the test tissue. These control slides run alongside of the patients sample show appropriate staining. Internal positive and negative controls when available are evaluated Immunohistochemistry technicaltesting was performed at [facility], Pathology Laboratory where it was developed [...] qualified to perform high complexity clinical laboratory testing.The following immunostains were performed with appropriate controls:CD20, BCL6, BCL2, c-MYC, CD3, CD5, CD10, CAM5.2, CD56, MUM1, KI67, CD30, MATT [facility], Department of Pathology, [address] [place] [address], [facility], [address] [place] [address], [facility], Department of Pathology, [address] [place] [address], JPJM-GLUCOSE [id number] 11:16:00 Test Item Value Reference Range Interpretation Comments POC-GLUCOSE METER 139 mg/dL 70-110 H : TESTED A T [facility] 6720 (LONNIE) (test code = ANIL Cordova [facility], 1538) [id number]: Child Welfare Caseworker/Techni isiah ID = [id number] for SALVADOR MOREAU CT, [id number] 09:35:00CT scheduled after infusionUnlisted Reason for Exam - Click Yes and Enter Reason Below->YesUnlisted Reason for Exam- >stagingWill this procedure require oral contrast?->No [facility] CUE[facility] MAXIMILIANOARIELA : 1945 Sex: MFINAL REPORT TECHNIQUE: CT of the chest, abdomen, and pelvis WITH in travenous contrast and WITHOUT oral contrast. Dose modulation, iterative reconstruction, and/or weight-based adjustment of the mA/kV was utilized to reduce the radiation dose to as low as reasonably achievable. INDICATION: 74-year-old man with brain mass and history of diffuse large B-cell lymphoma. CO MPARISON: None. FINDINGS: LINES/TUBES: Right internal jugular chest port tip terminates in the highsuperior vena cava. LUNGS AND AIRWAYS: Mild atelectasis/scarring in both lung bases. Lungs and airways are otherwise unremarkable.PLEURA: Pleural spaces are clear.HEART AND MEDIASTINUM: Visualized thyroid gland is normal. No significant mediastinal, hilar, or axillary lymphadenopathy. Heart and pericardium are within normal limits. Atherosclerotic calcifications in the thoracic aorta and coronary arteries. HEPATOBILIARY: 2.5 x 2.9 cm cyst in segment II/IV of the liver contains thin internal septations. Additional 0.8 cm cyst in segment JOSEPHINE at the dome also likely contains a thin internal septation.Smaller subcentimeter hypodensity in segment II is too small to characterize. Gallbladder is contracted. No biliary ductal dilatation.SPLEEN: No splenomegaly.PANCREAS: No focal mass or ductal dilatation. ADRENALS: No adrenal nodule.KIDNEYS/URETERS: No hydronephrosis, calculus, or mass. Bilateral cortical and renal sinus cysts measure up to 1.6 x 1.4 cm on the right and up to 5.4 x 5.5 cm on the left.PELVIC ORGANS/BLADDER: Small amount of air in the bladder, likely related to recent instrumentation. Prostate and seminal vesicles are grossly unremarkable PERITONEUM/RETROPERITONEUM: No free air or fluid.LYMPH NODES: No lymphadenopathy.VESSELS: Atherosclerotic vascular calcifications in the abdominal aorta, bilateral iliac arteries, and bilateral common femoral arteries without aneurysm. GI TRACT: Nodistention or wall thickening. Small periampullary duodenal diverticulum. BONES AND SOFT TISSUES: Noacute or suspicious osseous abnormalities. Degenerative changes of the visualized spine. Clips in the right axillary region. IMPRESSION:No acute or suspicious findings in the chest, abdomen, or pelvis. Signed: Anne-Marie Aldrich MDReport Verified Date/Time: 11/09/2020 09:35:09 Reading Location: [facility] Diagnostic Imaging Reading Room - [place] [address] CT, CHEST, WITH [id number] 09:35:00CT scheduled after infusionUnlisted Reason for Exam - Click Yes and Enter Reason Below->YesUnlisted Reason for Exam->staging [facility] : 1945 Sex: MFINAL REPORT TECHNIQUE: CT of the chest, abdomen, and pelvis WITH in travenous contrast and WITHOUT oral contrast. Dose modulation, iterative reconstruction, and/or weight-based adjustment of the mA/kV was utilized to reduce the radiation dose to as low as reasonably achievable. INDICATION: 74-year-old man with brain mass and history of diffuse large B-cell lymphoma. CO MPARISON: None. FINDINGS: LINES/TUBES: Right internal jugular chest port tip terminates in the highsuperior vena cava. LUNGS AND AIRWAYS: Mild atelectasis/scarring in both lung bases. Lungs and airways are otherwise unremarkable.PLEURA: Pleural spaces are clear.HEART AND MEDIASTINUM: Visualized thyroid gland is normal. No significant mediastinal, hilar, or axillary lymphadenopathy. Heart and pericardium are within normal limits. Atherosclerotic calcifications in the thoracic aorta and coronary arteries. HEPATOBILIARY: 2.5 x 2.9 cm cyst in segment II/IV of the liver contains thin internal septations. Additional 0.8 cm cyst in segment JOSEPHINE at the dome also likely contains a thin internal septation.Smaller subcentimeter hypodensity in segment II is too small to characterize. Gallbladder is contracted. No biliary ductal dilatation.SPLEEN: No splenomegaly.PANCREAS: No focal mass or ductal dilatation. ADRENALS: No adrenal nodule.KIDNEYS/URETERS: No hydronephrosis, calculus, or mass. Bilateral cortical and renal sinus cysts measure up to 1.6 x 1.4 cm on the right and up to 5.4 x 5.5 cm on the left.PELVIC ORGANS/BLADDER: Small amount of air in the bladder, likely related to recent instrumentation. Prostate and seminal vesicles are grossly unremarkable PERITONEUM/RETROPERITONEUM: No free air or fluid.LYMPH NODES: No lymphadenopathy.VESSELS: Atherosclerotic vascular calcifications in the abdominal aorta, bilateral iliac arteries, and bilateral common femoral arteries without aneurysm. GI TRACT: Nodistention or wall thickening. Small periampullary duodenal diverticulum. BONES AND SOFT TISSUES: Noacute or suspicious osseous abnormalities. Degenerative changes of the visualized spine. Clips in the right axillary region. IMPRESSION:No acute or suspicious findings in the chest, abdomen, or pelvis. Signed: Anne-Marie Aldrich MDReport Verified Date/Time: 11/09/2020 09:35:09 Reading Location: [facility] Diagnostic Imaging Reading Room - [place] [address] chest with IV [id number] 09:35:00Interface, External Ris In - 11/09/2020 9:37 AM CDTFINAL REPORT TECHNIQUE: CT of the chest, abdomen, and pelvis WITH intravenous contrast and WITHOUT oral contrast. Dose modulation, iterative reconstruction, and/or weight- based adjustment of the mA/kV was utilized to reduce theradiation dose to as low as reasonably achievable. 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 COMPARISON: None. FINDINGS: LINES/TUBES: Right internal jugular chest port tip terminates in the high superior vena cava. LUNGS AND AIRWAYS: Mild atelectasis/scarring in both lung bases. Lungs and airways are otherwise unremarkable.PLEURA: Pleural spaces are clear.HEART AND MEDIASTINUM: Visualized thyroid gland is normal. No significant mediastinal, hilar, or axillary lymphadenopathy. Heart and pericardium are within normal limits. Atherosclerotic calcifications in the thoracic aorta and coronary arteries. HEPATOBILIARY: 2.5 x 2.9 cm cyst in segment II/IV ofthe liver contains thin internal septations. Additional 0.8 cm cyst in segment JOSEPHINE at the dome also likely contains a thin internal septation. Smaller subcentimeter hypodensity in segment II is too small to characterize. Gallbladder is contracted. No biliary ductal dilatation.SPLEEN: No splenomegaly.PANCREAS: No focal mass or ductal dilatation. ADRENALS: No adrenal nodule.KIDNEYS/URETERS: No hydronephrosis, calculus, or mass. Bilateral cortical and renal sinus cysts measure up to 1.6 x 1.4 cm on theright and up to 5.4 x 5.5 cm on the left.PELVIC ORGANS/BLADDER: Small amount of air in the bladder, likely related to recent instrumentation. Prostate and seminal vesicles are grossly unremarkable PERIT ONEUM/RETROPERITONEUM: No free air or fluid.LYMPH NODES: No lymphadenopathy.VESSELS: Atheroscleroticvascular calcifications in the abdominal aorta, bilateral iliac arteries, and bilateral common femoral arteries without aneurysm. GI TRACT: No distention or wall thickening. Small periampullary duodenal diverticulum. BONES AND SOFT TISSUES: No acute or suspicious osseous abnormalities. Degenerative changes of the visualized spine. Clips in the right axillary region. IMPRESSION:No acute or suspiciousfindings in the chest, abdomen, or pelvis. Signed: Anne-Marie Aldrich MDReport Verified Date/Time: 02/2021 09:35:09 Reading Location: [facility] Diagnostic Imaging Reading Room [place] [address] [facility] contrast 2020-11-09 09:35:00Interface, External Ris In - 11/09/2020 9:37 AM CDTFINAL REPORT TECHNIQUE: CT of the chest, abdomen, and pelvis WITH intravenous contrast and WITHOUT oral contrast. Dose modulation, iterative reconstruction, and/or weight-based adjustment of the mA/kV was utilized to reduce theradiation dose to as low as reasonably achievable. INDICATION: 74-year-old man with brain mass and history of diffuse large B-cell lymphoma. COMPARISON: None. FINDINGS: LINES/TUBES: Right internal jugular chest port tip terminates in the high superior vena cava. LUNGS AND AIRWAYS: Mild atelectasis/scarring in both lung bases. Lungs and airways are otherwise unremarkable.PLEURA: Pleural spaces are clear.HEART AND MEDIASTINUM: Visualized thyroid gland is normal. No significant mediastinal, hilar, or axillary lymphadenopathy. Heart and pericardium are within normal limits. Atherosclerotic calcifications in the thoracic aorta and coronary arteries. HEPATOBILIARY: 2.5 x 2.9 cm cyst in segment II/IV ofthe liver contains thin internal septations. Additional 0.8 cm cyst in segment JOSEPHINE at the dome also likely contains a thin internal septation. Smaller subcentimeter hypodensity in segment II is too small to characterize. Gallbladder is contracted. No biliary ductal dilatation.SPLEEN: No splenomegaly.PANCREAS: No focal mass or ductal dilatation. ADRENALS: No adrenal nodule.KIDNEYS/URETERS: No hydronephrosis, calculus, or mass. Bilateral cortical and renal sinus cysts measure up to 1.6 x 1.4 cm on the right and up to 5.4 x 5.5 cm on the left.PELVIC ORGANS/BLADDER: Small amount of air in the bladder, likely related to recent instrumentation. Prostate and seminal vesicles are grossly unremarkable PERITONEUM/RETROPERITONEUM: No free air or fluid.LYMPH NODES: No lymphadenopathy.VESSELS: Atheroscleroticvascular calcifications in the abdominal aorta, bilateral iliac arteries, and bilateral common femoral arteries without aneurysm. GI TRACT: No distention or wall thickening. Small periampullary duodenal diverticulum. BONES AND SOFT TISSUES: No acute or suspicious osseous abnormalities. Degenerative changes of the visualized spine. Clips in the right axillary region. IMPRESSION:No acute or suspiciousfindings in the chest, abdomen, or pelvis. Signed: Anne-Marie Aldrich MDReport Verified Date/Time: 11/09/2020 09:35:09 Reading Location: [facility] Diagnostic Imaging Reading Room - [place] [address] [facility]CT, SOFT TISSUE NECK, [id number] 08:23:00CT scheduled after infusionUnlisted Reason for Exam - Click Yes and Enter Reason Below->YesUnlisted Reason for Exam->staging[facility] : 1945 Sex: MFINAL REPORT CT Neck with contrast CLINICAL HISTORY: Unlisted Reason for Examstaging TECHNIQUE: Contiguous axial images of the neck with intravenous contrast with coronal and sagittal reformations. This exam was performed according to the departmental dose optimizationprogram which includes automated exposure control, adjustment of the mA and/or kV according to the patient size, and/or use of an iterative reconstruction technique. COMPARISON: None FINDINGS: There are scattered subcentimeter cervical lymph nodes in the neck. In the partially imaged right supraclavicular region, there is infiltrative changes with a 2.1 cm x 1.4 cm soft tissue mass suspicious for enlarged lymph node. There is no evidence of a dominant mass or abnormal fluid collection in the soft tissues of the neck. The salivary glands are symmetrical and unremarkable in appearance. The aerodigestive tract is patent. The vascular structures in the neck are patent. There is a right jugular chest wall port. The visualized lung apices are clear. IMPRESSION: Right supraclavicular mass measuring 2.1 cm x 1.4 cm compatible with an enlarged lymph node. No other cervical lymphadenopathy. Signed: Oc Roper MDReport Verified Date/Time: 11/09/2020 08:23:50 Reading Location: [address] Neuro Reading Room CT neck soft tissue with IV contrast 2020-11-09 08:23:00Interface, External Ris In - 11/09/2020 8:[address] Neck withcontrast CLINICAL HISTORY: Unlisted Reason for Examstaging TECHNIQUE: Contiguous axial images of theneck with intravenous contrast with coronal and sagittal reformations. This exam was performed according to the departmental dose optimization program which includes automated exposure control, adjustment of the mA and/or kV according to the patient size, and/or use of an iterative reconstruction technique. COMPARISON: None FINDINGS: There are scattered subcentimeter cervical lymph nodes in the neck.In the partially imaged right supraclavicular region, there is infiltrative changes with a 2.1 cm x 1.4 cm soft tissue mass suspicious for enlarged lymph node. There is no evidence of a dominant mass or abnormal fluid collection in the soft tissues of the neck. The salivary glands are symmetrical and u nremarkable in appearance. The aerodigestive tract is patent. The vascular structures in the neck are patent. There is a right jugular chest wall port. The visualized lung apices are clear. IMPRESSION:Right supraclavicular mass measuring 2.1 cm x 1.4 cm compatible with an enlarged lymph node. No other cervical lymphadenopathy. Signed: Oc Roper MDReport Verified Date/Time: 11/09/2020 08:23:50 Reading Location: [address] Neuro Reading Room [facility] campusPOCT-GLUCOSE [id number] 08:05:00 Test Item Value Reference Range Interpretation Comments POC-GLUCOSE METER 122 mg/dL 70-110 H : TESTED A T [facility] 6720 [facility] (test code = ANIL Cordova [facility], 1538) [address]: Child Welfare Caseworker/Techni isiah ID = [id number] for SALVADOR MOREAU PH, [id number] 06:14:00 Test Item Value Reference Range Interpretation Comments PH UA (BEAKER) (test code = 467) 8.0 5.0-8.0 Child Welfare Caseworker ID - [auto][id number] 05:16:00 Test Item Value Reference Range Interpretation Comments Magnesium (test code = 2.0 mg/dL 1.6-2.6 13432-9) BEAR (test code = BEAR) Child Welfare Caseworker ID - PIAYA L Lab Interpretation (test Normal code = 78700-4) [facility] [id number] 05:16:00 Test Item Value Reference Range Interpretation Comments TOTAL PROTEIN 5.0 gm/dL 6.0-8.3 L (BEAKER) (test code = 770) ALBUMIN (BEAKER) 2.9 g/dL 3.5-5.0 L (test code = 1145) ALKALINE PHOSPHATASE 67 U/L 40-150 (BEAKER) (test code = 346) BILIRUBIN TOTAL 0.6 mg/dL 0.2-1.2 (BEAKER) (test code = 377) SODIUM (BEAKER) (test 136 meq/L 136-145 code = 381) POTASSIUM (BEAKER) 4.2 meq/L 3.5-5.1 (test code = 379) CHLORIDE (BEAKER) 97 meq/L 98-107 L (test code = 382) CO2 (BEAKER) (test 31 meq/L 22-29 H code = 355) BLOOD UREA NITROGEN 30 mg/dL 7-21 H (BEAKER) (test code = 354) CREATININE (BEAKER) 0.78 mg/dL 0.57-1.25 (test code = 358) GLUCOSE RANDOM 120 mg/dL 70-105 H (BEAKER) (test code = 652) CALCIUM (BEAKER) 8.0 mg/dL 8.4-10.2 L (test code = 697) AST (SGOT) (BEAKER) 24 U/L 5-34 (test code = 353) ALT (SGPT) (BEAKER) 28 U/L 6-55 (test code = 347) EGFR (BEAKER) (test 118 ESTIMATE D GFR IS code = 1092) mL/min/1.73 sq NOT ACCURA TE m CREATININE CLEARANCE IN PREDICTING GLOMERULAR FILTRATION RATE . ESTIMATED GFR I S NOT APPLICABLE FOR DIALYSIS PATIEN TS. Child Welfare Caseworker ID - PIHUE [id number] 05:16:00 Test Item Value Reference Range Interpretation Comments MAGNESIUM (BEAKER) (test code = 2.0 mg/dL 1.6-2.6 627) Child Welfare Caseworker ID - PIHUE LCBC (Hemogram only)2020-11-09 04:48:00 Test Item Value Reference Range Interpretation Comments WBC (test code = 6690-2) 5.4 See_Comment [A utomated message] The system [employer] generated this result transmitted ref erence range: 3.5 - 10 .5 K/L. The refe rence range was not u sed to interpret this result as normal/abnor mal. RBC (test code = 789-8) 2.98 See_Comment L [Au tomated message] The system [employer] generated this result transmitted ref erence range: 4.63 - 6 .08 M/L. The refe rence range was not u sed to interpret this result as normal/abnor mal. MCHC (test code = 786-4) 34.1 See_Comment L [A utomated message] The system [employer] generated this result transmitted ref erence range: 32.3 - 3 6.5 GM/DL. The refe rence range was not u sed to interpret this result as normal/abnor mal. Hematocrit (test code = 29.3 % 40.1-51 L 4544-3) MCV (test code = 787-2) 98.3 fL 79-92.2 H MCH (test code = 785-6) 33.6 pg 25.7-32.2 H RDW (test code = 788-0) 13.6 % 11.6-14.4 Platelets (test code = 70 See_Comment L [Aut omated message] 777-3) The system [employer] generated this result transmitted ref erence range: 150 - 45 0 K/CU MM. The referen ce range was not u sed to interpret this result as normal/abnor mal. MPV (test code = 11.5 fL 9.4-12.4 28864-2) nRBC (test code = 413) 0 See_Comment [Aut omated message] The system [employer] generated this result transmitted ref erence range: 0 - 0 /1 00 WBC. The refere nce range was not u sed to interpret this result as normal/abnor mal. Lab Interpretation (test Abnormal code = 04365-1) [facility] (HEMOGRAM ONLY)2020-11-09 04:48:00 Test Item Value Reference Range Interpretation Comments WHITE BLOOD CELL COUNT (BEAKER) 5.4 K/ L 3.5-10.5 (test code = 775) RED BLOOD CELL COUNT (BEAKER) 2.98 M/ L 4.63-6.08 L (test code = 761) HEMOGLOBIN (BEAKER) (test code = 10.0 GM/DL 13.7-17.5 L 410) HEMATOCRIT (BEAKER) (test code = 29.3 % 40.1-51.0 L 411) MEAN CORPUSCULAR VOLUME (BEAKER) 98.3 fL 79.0-92.2 H (test code = 753) MEAN CORPUSCULAR HEMOGLOBIN 33.6 pg 25.7-32.2 H (BEAKER) (test code = 751) MEAN CORPUSCULAR HEMOGLOBIN CONC 34.1 GM/DL 32.3-36.5 (BEAKER) (test code = 752) RED CELL DISTRIBUTION WIDTH 13.6 % 11.6-14.4 (BEAKER) (test code = 412) PLATELET COUNT (AKER) (test code 70 K/CU MM 150-450 L = 756) MEAN PLATELET VOLUME (AKER) 11.5 fL 9.4-12.4 (test code = 754) NUCLEATED RED BLOOD CELLS (AKER) 0 /100 WBC 0-0 (test code = 413) PH, [id number] 00:54:00 Test Item Value Reference Range Interpretation Comments PH UA (BEAKER) (test code = 467) 8.0 5.0-8.0 Child Welfare Caseworker ID - [auto]POCT-GLUCOSE [id number] 21:31:00 Test Item Value Reference Range Interpretation Comments POC-GLUCOSE METER 136 mg/dL 70-110 H : Notified RN/MD: ([facility]) (test code = TESTED AT [place] [address] 153) [facility], [address]: Child Welfare Caseworker/Techni isiah ID = [id number] for Silke janet Esterjose g POCT-GLUCOSE [id number] 17:40:00 Test Item Value Reference Range Interpretation Comments POC-GLUCOSE METER 117 mg/dL 70-110 H : TESTED A T [facility] 6720 ([facility]) (test code = [facility], 153) [address]: Child Welfare Caseworker/Techni isiah ID = [id number] for Ca epifanios, Genie PH, [id number] 17:13:00 Test Item Value Reference Range Interpretation Comments PH UA ([facility]) (test code = 467) 5.0 5.0-8.0 POCT-GLUCOSE [id number] 12:21:00 Test Item Value Reference Range Interpretation Comments POC-GLUCOSE METER 112 mg/dL 70-110 H : TESTED A T [facility] 6720 ([facility]) (test code = [facility], 153) [address]: Child Welfare Caseworker/Techni isiah ID = [id number] for VERNA COLLAZO PH, [id number] 12:13:00 Test Item Value Reference Range Interpretation Comments PH UA (BEAKER) (test code = 467) 6.5 5.0-8.0 Child Welfare Caseworker ID - [auto]CBC W/PLT COUNT & AUTO [id number] 07:22:00 Test Item Value Reference Range Interpretation Comments WHITE BLOOD CELL COUNT (BEAKER) 5.5 K/ L 3.5-10.5 (test code = 775) RED BLOOD CELL COUNT (BEAKER) 3.23 M/ L 4.63-6.08 L (test code = 761) HEMOGLOBIN (BEAKER) (test code = 10.8 GM/DL 13.7-17.5 L 410) HEMATOCRIT (BEAKER) (test code = 31.2 % 40.1-51.0 L 411) MEAN CORPUSCULAR VOLUME (BEAKER) 96.6 fL 79.0-92.2 H (test code = 753) MEAN CORPUSCULAR HEMOGLOBIN 33.4 pg 25.7-32.2 H (BEAKER) (test code = 751) MEAN CORPUSCULAR HEMOGLOBIN CONC 34.6 GM/DL 32.3-36.5 (BEAKER) (test code = 752) RED CELL DISTRIBUTION WIDTH 13.7 % 11.6-14.4 (BEAKER) (test code = 412) PLATELET COUNT (BEAKER) (test code 82 K/CU MM 150-450 L = 756) MEAN PLATELET VOLUME (BEAKER) 11.5 fL 9.4-12.4 (test code = 754) NUCLEATED RED BLOOD CELLS (BEAKER) 0 /100 WBC 0-0 (test code = 413) (CELLAVISION MANUAL DIFF)2020-11-08 07:22:00 Test Item Value Reference Range Interpretation Comments NEUTROPHILS - REL 88 % (CELLAVISION)(BEAKER) (test code = 2816) LYMPHOCYTES - REL 3 % (CELLAVISION)(BEAKER) (test code = 2817) MONOCYTES - REL 8 % (CELLAVISION)(BEAKER) (test code = 2818) NEUTROPHILS - ABS 4.84 K/ul 1.78-5.38 (CELLAVISION)(BEAKER) (test code = 2830) LYMPHOCYTES - ABS 0.17 K/ul 1.32-3.57 L (CELLAVISION)(BEAKER) (test code = 2831) MONOCYTES - ABS 0.44 K/uL 0.30-0.82 (CELLAVISION)(BEAKER) (test code = 2832) TOTAL COUNTED (BEAKER) (test code = 100 1351) PLT MORPHOLOGY (BEAKER) (test code Normal = 486) HYPERSEGMENTATION Present (CELLAVISION)(BEAKER) (test code = 3445) POIKILOCYTES (BEAKER) (test code = 1+ few 966) OVALOCYTES (BEAKER) (test code = 1+ few 477) ARTIFACT (CELLAVISION)(BEAKER) Present (test code = 3432) PLATELET CONCENTRATION Decreased (CELLAVISION)(BEAKER) (test code = 3438) Child Welfare Caseworker ID - Divya OverholtUser comments: Slide comments:PH, [id number] 07:15:00 Test Item Value Reference Range Interpretation Comments PH UA (BEAKER) (test code = 467) 5.5 5.0-8.0 Child Welfare Caseworker ID - [auto]Hepatitis B surface [id number] 06:19:00 Test Item Value Reference Range Interpretation Comments Hep B S Ab (test code <8.0 See_Comment [Auto mated = 48202-0) message] The system which generated this result transmit lana reference range : <8.0 mIU/mL. e reference range was not used to interpret this result as normal/abnormal . BEAR (test code = BEAR) Child Welfare Caseworker ID - DB Lab Interpretation Normal (test code = 23879-2) [facility] [id number] 06:19:00 Test Item Value Reference Range Interpretation Comments HEPATITIS B SURFACE ANTIBODY < mIU/mL <8.0 (BEAKER) (test code = 647) Child Welfare Caseworker ID - DBHepatitis B surface [id number] 06:14:00 Test Item Value Reference Range Interpretation Comments HBsAg Screen (test code Nonreactive Nonreactive = 5195-3) BEAR (test code = BEAR) Specimen is considered negative for HBsAg. Lab Interpretation (test Normal code = 44802-5) [facility] antibody, [id number] 06:14:00 Test Item Value Reference Range Interpretation Comments Hep B Core Total Ab (test Nonreactive Nonreactive code = 79194-3) BEAR (test code = BEAR) Child Welfare Caseworker ID - DB Lab Interpretation (test Normal code = 55251-9) [facility] [id number] 06:14:00 Test Item Value Reference Range Interpretation Comments Hepatitis C Ab (test code = Nonreactive Nonreactive 67929-4) BEAR (test code = BEAR) Child Welfare Caseworker ID - DB Lab Interpretation (test Normal code = 10006-4) [facility] [id number] 06:14:00 Test Item Value Reference Range Interpretation Comments HEPATITIS B SURFACE ANTIGEN (2) Nonreactive Nonreactive (BEAKER) (test code = 2585) Specimen is considered negative for HBsAg.HEPATITIS C [id number] 06:14:00 Test Item Value Reference Range Interpretation Comments HEPATITIS C ANTIBODY (BEAKER) Nonreactive Nonreactive (test code = 367) Child Welfare Caseworker ID - DBHEPATITIS B CORE ANTIBODY, [id number] 06:14:00 Test Item Value Reference Range Interpretation Comments HEPATITIS B CORE TOTAL ANTIBODY Nonreactive Nonreactive (BEAKER) (test code = 497) Child Welfare Caseworker ID - DBCOMPREHENSIVE METABOLIC [id number] 05:38:00 Test Item Value Reference Range Interpretation Comments TOTAL PROTEIN 5.4 gm/dL 6.0-8.3 L (BEAKER) (test code = 770) ALBUMIN (BEAKER) 3.2 g/dL 3.5-5.0 L (test code = 1145) ALKALINE PHOSPHATASE 73 U/L 40-150 (BEAKER) (test code = 346) BILIRUBIN TOTAL 0.6 mg/dL 0.2-1.2 (BEAKER) (test code = 377) SODIUM (BEAKER) (test 137 meq/L 136-145 code = 381) POTASSIUM (BEAKER) 4.0 meq/L 3.5-5.1 (test code = 379) CHLORIDE (BEAKER) 100 meq/L 98-107 (test code = 382) CO2 (BEAKER) (test 27 meq/L 22-29 code = 355) BLOOD UREA NITROGEN 36 mg/dL 7-21 H (BEAKER) (test code = 354) CREATININE (BEAKER) 0.83 mg/dL 0.57-1.25 (test code = 358) GLUCOSE RANDOM 130 mg/dL 70-105 H (BEAKER) (test code = 652) CALCIUM (BEAKER) 8.3 mg/dL 8.4-10.2 L (test code = 697) AST (SGOT) (BEAKER) 26 U/L 5-34 (test code = 353) ALT (SGPT) (BEAKER) 30 U/L 6-55 (test code = 347) EGFR (BEAKER) (test 109 ESTIMATE D GFR IS code = 1092) mL/min/1.73 sq NOT ACCURA TE m CREATININE CLEARANCE IN PREDICTING GLOMERULAR FILTRATION RATE . ESTIMATED GFR I S NOT APPLICABLE FOR DIALYSIS PATIEN TS. Child Welfare Caseworker ID - [id number] 18:45:00 Test Item Value Reference Range Interpretation Comments MAGNESIUM (BEAKER) 2.3 mg/dL 1.6-2.6 Specimen slightly (test code = 627) hemolyzed Child Welfare Caseworker ID - DBCOMPREHENSIVE METABOLIC [id number] 18:45:00 Test Item Value Reference Range Interpretation Comments TOTAL PROTEIN 6.3 gm/dL 6.0-8.3 Specimen sligh tly (BEAKER) (test code = hemoly zed 770) ALBUMIN (BEAKER) 3.6 g/dL 3.5-5.0 Specimen sl ightly (test code = 1145) hemolyzed ALKALINE PHOSPHATASE 85 U/L 40-150 (BEAKER) (test code = 346) BILIRUBIN TOTAL 0.7 mg/dL 0.2-1.2 Specimen sli ghtly (BEAKER) (test code = hemoly zed 377) SODIUM (BEAKER) (test 138 meq/L 136-145 code = 381) POTASSIUM (BEAKER) 4.0 meq/L 3.5-5.1 Specimen slightly (test code = 379) hemolyzed CHLORIDE (BEAKER) 101 meq/L 98-107 (test code = 382) CO2 (BEAKER) (test 27 meq/L 22-29 code = 355) BLOOD UREA NITROGEN 37 mg/dL 7-21 H (BEAKER) (test code = 354) CREATININE (BEAKER) 0.84 mg/dL 0.57-1.25 Specimen slightly (test code = 358) hemolyzed GLUCOSE RANDOM 139 mg/dL 70-105 H (BEAKER) (test code = 652) CALCIUM (BEAKER) 8.7 mg/dL 8.4-10.2 (test code = 697) AST (SGOT) (BEAKER) 34 U/L 5-34 Specimen slightly (test code = 353) hemolyzed ALT (SGPT) (BEAKER) 39 U/L 6-55 Specimen slightly (test code = 347) hemolyzed EGFR (BEAKER) (test 108 ESTIMATE D GFR IS code = 1092) mL/min/1.73 sq NOT ACCURA TE m CREATININE CLEARANCE IN PREDICTING GLOMERULAR FILTRATION RATE . ESTIMATED GFR I S NOT APPLICABLE FOR DIALYSIS PATIEN TS. Child Welfare Caseworker ID - DBPOCT-GLUCOSE [id number] 18:05:00 Test Item Value Reference Range Interpretation Comments POC-GLUCOSE METER 106 mg/dL 70-110 : TESTED A T [facility] 6720 (Poynt) (test code = [facility], 153) 42358: Child Welfare Caseworker/Techni isiah ID = [id number] for Ca rdenas, Genie Flow Cytometry [id number] 12:39:00 Test Item Value Reference Range Interpretation Comments Flow Cytometry (test code See Separate Report = 2758) Case # (test code = 2759) [id number] [facility] [id number] 12:39:00 Test Item Value Reference Range Interpretation Comments FLOW CYTOMETRY RESULT See Separate Report [facility] (test code = 2758) FLOW CYTOMETRY AP CASE # [id number] ([facility]) (test code = 2759) POCT-GLUCOSE [id number] 08:42:00 Test Item Value Reference Range Interpretation Comments POC-GLUCOSE METER 103 mg/dL 70-110 : TESTED A T [facility] 67[facility] (BEAKER) (test code = [facility], 153) 45312: Child Welfare Caseworker/Techni isiah ID = [id number] for MA RTINEZ, MADISON POCT-GLUCOSE [id number] 22:09:00 Test Item Value Reference Range Interpretation Comments POC-GLUCOSE METER 137 mg/dL 70-110 H : TESTED A T [facility] 67[facility] (BEAKER) (test code = [facility], 153) 11801: Child Welfare Caseworker/Techni isiah ID = [id number] for DE NNIS, ARMANDO Beta 2 [id number] 20:30:00 Test Item Value Reference Range Interpretation Comments B2 1.77 mg/L See_Comment This test was performed Microglobuli using the Abbot t n, Serum Immunoturbidime tric (test code = method. Valueso btained 4108932) from different assay methods cannot be used interchangeably . Beta-2Microglob ulin levels, regardl ess of value, should n ot be interpreted asa bsolute evidence of the presence or absence of d isease. [Automated mess age] The system which ge nerated this result tra nsmitted reference range : < OR = 2.51. The refer ence range was not used to interpret this result as normal/abnormal . BEAR (test Performing Lab code = BEAR) EZ Dexmo [facility] [address] [place] [address] Madelaine Valentine MD, PhD, ADELINE [facility] [id number] 18:15:00 Test Item Value Reference Range Interpretation Comments POC-GLUCOSE METER 116 mg/dL 70-110 H : TESTED A T [facility] 6720 (BEAKER) (test code = [facility], 1538) 62509: Child Welfare Caseworker/Techni isiah ID = [id number] for Daniella Redmond POCT-GLUCOSE [id number] 12:29:00 Test Item Value Reference Range Interpretation Comments POC-GLUCOSE METER 128 mg/dL 70-110 H : TESTED A T [facility] 67[facility] (BEAKER) (test code = [facility], 1538) 05651: Child Welfare Caseworker/Techni isiah ID = [id number] for Daniella Redmond POCT-GLUCOSE [id number] 07:56:00 Test Item Value Reference Range Interpretation Comments POC-GLUCOSE METER 115 mg/dL 70-110 H : TESTED A T [facility] 6720 (BEAKER) (test code = [facility], 1538) 17384: Child Welfare Caseworker/Techni isiah ID = [id number] for Daniella Redmond POCT-GLUCOSE [id number] 22:24:00 Test Item Value Reference Range Interpretation Comments POC-GLUCOSE METER 127 mg/dL 70-110 H : TESTED A T [facility] 6720 (BEAKER) (test code = [facility], 1538) 00483: Child Welfare Caseworker/Techni isiah ID = [id number] for JOHN PAUL JOHNSON BASIC METABOLIC [id number] 06:02:00 Test Item Value Reference Range Interpretation Comments SODIUM (BEAKER) 135 meq/L 136-145 L (test code = 381) POTASSIUM (BEAKER) 4.5 meq/L 3.5-5.1 Specimen slightly (test code = 379) hemolyzed CHLORIDE (BEAKER) 102 meq/L 98-107 (test code = 382) CO2 (BEAKER) (test 22 meq/L 22-29 code = 355) BLOOD UREA NITROGEN 24 mg/dL 7-21 H (BEAKER) (test code = 354) CREATININE (BEAKER) 0.81 mg/dL 0.57-1.25 Specimen slightly (test code = 358) hemolyzed GLUCOSE RANDOM 130 mg/dL 70-105 H (BEAKER) (test code = 652) CALCIUM (BEAKER) 8.6 mg/dL 8.4-10.2 (test code = 697) EGFR (BEAKER) (test 113 mL/min/1.73 ESTIM ATED GFR IS code = 1092) sq m NOT ACCURATE CREATININE CLEARANCE IN PREDICTING GLOMERULAR FILTRATION RATE . ESTIMATED GFR I S NOT APPLICABLE FOR DIALYSIS PATIEN TS. Child Welfare Caseworker ID - [id number] (HEMOGRAM ONLY)2020-11-05 05:40:00 Test Item Value Reference Range Interpretation Comments WHITE BLOOD CELL COUNT (BEAKER) 6.1 K/ L 3.5-10.5 (test code = 775) RED BLOOD CELL COUNT (BEAKER) 3.09 M/ L 4.63-6.08 L (test code = 761) HEMOGLOBIN (BEAKER) (test code = 10.3 GM/DL 13.7-17.5 L 410) HEMATOCRIT (BEAKER) (test code = 30.4 % 40.1-51.0 L 411) MEAN CORPUSCULAR VOLUME (BEAKER) 98.4 fL 79.0-92.2 H (test code = 753) MEAN CORPUSCULAR HEMOGLOBIN 33.3 pg 25.7-32.2 H (BEAKER) (test code = 751) MEAN CORPUSCULAR HEMOGLOBIN CONC 33.9 GM/DL 32.3-36.5 (BEAKER) (test code = 752) RED CELL DISTRIBUTION WIDTH 13.6 % 11.6-14.4 (BEAKER) (test code = 412) PLATELET COUNT (BEAKER) (test code 98 K/CU MM 150-450 L = 756) MEAN PLATELET VOLUME (BEAKER) 11.5 fL 9.4-12.4 (test code = 754) NUCLEATED RED BLOOD CELLS (BEAKER) 0 /100 WBC 0-0 (test code = 413) Flow [id number] 14:57:00 Test Item Value Reference Range Interpretation Comments Case Report (test code = Flow Cytometry Report 104) Case: [id number] Authorizing Provider: Luis Felipe Jiménez MD Collected: 11/04/2020 09:30 AM Ordering Location: [facility] Received: 11/04/2020 10:09 AM SERVICES Pathologist: Brittani Milan MD Specimen: Other Flow Interpretation b3jsuGPiTDZbzJK3CsUcP (test code = 3364) MHyy7hgm2WfaZEstLXzVL oxmCYqrvMgco39nTP3bQ4 4NX3cEMAiPmA3IMSghfU6 Jzr9UGFbXKHdkQVsI541e 1esp9traySivKC2vQchPL JkXHBsYWluXGZzMjAgQlJ TUI0uXWGWGzatKpvNMQNr ECWQD6ozF3jQY75DECBLF grxHMFlEHRHP67DSRdROP MgQiBDRUxMIFBPUFVMQVR IW41nVXRJAtAZYhvSNXKf UpHyLZ4VBWFGOWjZNNZVE DUQUOwfB9V7ZDQLKRVAAN HnXE9SJ0WLBGMKBSSCVT6 OQUGdSYmTKAKbH0oXLJ4k UtDWADCKH9GLZJayLMO5 Flow Interpretation d9yhrLEjBOFkwBY3QkPiQ Comment (test code = ZFkv0zid8DseQPtnRTqTD 3365) wxwVAefoHipg95pVC6cV8 3VF5vGCTgAuY9BBVjlsZ0 Nym1KGSjRGSfyRKyH500i 1qgx8qnfuBxfDU9tDxwEI JkXHBsYWluXGZzMjAgUGx jCWNwQQMvKVF2lNPmA98f dsStlY8fYSyjWxNgxCNzn PEszLTgGJYfq2cxX7nmuc Juo5H4ZEzFMyDcKXEiLMs pXr1aHAIywqOwyGD8pT9b TFdzhBfgfX4ssEpjfO7zo PMkVpziWPvxN2PrPEVjtl 0= CPT Code(s) (test code = y2xhtOKoYPEyxQI9YlQjO 3357) EOow9rgc8ShoXVrtMRxOX jrwTPjwzOngb74oCT1rR2 7VB2sBIKqQzO8UULzlbS7 Cjk1DSYqGKDdpVKnQ934t 5jvk1fsjpKvoDU0aWpaHT JkXHBsYWluXGZzMjIgODg xODlccGFyfQ== CLINICAL HISTORY (test v5idzRGvHGYjcNK2WeRvE code = 3356) HHjj8cpm3CjxHOspWTxWK uasPYbtxBhqh11yLB5uB6 7HW9fPYWoCnS6YMGtrtB5 Exl0YEIxNZWhlHAoD365x 7qrm7ubhiSpuFZ8yYqiWD JkXHBsYWluXGZzMjAgNzU cfZ9bWju+bWFsZVx+d2l0 uMOowSH3t1A7IY5oGNWuK gV5p2YchIUgO7ZqVyVfCY ueVFj4pGCqk44kTMUvtzB aLQ16spS2yHWhJMUmoVSh IX6ggFBwuU4yeBEvQPhyS yRcL9Odr53oBC8cUMNwbG 5kIHRvIGhhdmUgbXVsdGl suPLviGLrW0SsQY7gKG6f bP0mWOTBRuQnTFEbz19pI lxwYXJ9 SPECIMEN SOURCE (test j2vocENkGMMeySO2NaYqX code = 3377) YFnv8qhz7XzdWLwbAOpED wpaVJronVjhe45vAR8lT4 8LQ5fEZTvTkN9CBDaqzR3 Ajn4MUPrJIEhiXLcY844a 4wpv8oroaMwrIY0wVeeZL RePYJyRRvgGDHeYpCjV9X eVYYdv9AqxY8ywPMjrTXl ZFxwYXJ9 CELLULAR BIOMARKER r5hklSCdXSXjsGN6AnLtW ANALYSIS (test code = FLif9giw9SxcFPufWZjRF 3380) gbiXWgmuZppx37mOE9vY7 7AQ2iSEVyMjG8NXJansN2 Qoa3YZZsBEBucDXxE630f 1vnv0idqxSrnKH5bLfkXF UsOVKeOPseGJGnMaFyK4L 4LCBzdXJmYWNlLWthcHBh BMLAVMO3UMCcxPTgMAWkK IjwbECaMFwuE8X4ITWHHV W7UIVFDAOgDGATIKMlTFC IBkIiVQXIXDvdC6O0NMsa F7EyEclgR2Q2DxmzX2B2E CBDRDQsIENEMlxwYXJ9 IMMUNOPHENOTYPIC g8sqtZPdXJYxtVD4VaEmE FINDINGS (test code = RHkq7lzh1ImaBYuqGUpIV 3379) cwxYXxflVwng27sDN1nA9 6UQ3fOXSyRaU5OKPrcjW7 Mwv2DUFpHFVznTYbR497r 9xnr8emkgTevNB9sAnvSS JkXHBsYWluXGZzMjBccGF yIFNwZWNpbWVuIFZpYWJp eVu3kMahPGIxTjWqfgw+X H5cflx+KI73nBNjziQiNu BFdmVudHMgQWNxdWlyZWQ 6IDEwMDAwMFxwYXJccGFy AFJqta4dcBYkQHQwG7Jyr WMju5G9gIW4iI6kKQvfVR 50aWZpZWQgKDMyJSBvZiB wBEiboGpoiab5dUwwfBKr YOUdlnMPJ0FVEMrVCSkuR 9Z3UIdsB1HoHMrzS2EnCP yoUBDgNcNrYZwvL5u1CYL oYWluXHBhclxwYXIgTkVH CEGGXaW5JDOAKZfaS1DiC FosZ0GpmLSxqRaecWNuY4 babR8mqDYcHJVzydn+XHB hciBJbiBhZGRpdGlvbiwg bGpcOPTycQrcl1vpHbNra 6F8iSM8iZ9jmeBduuHcgZ RlbnRpZmllZDpccGFyXH5 ogIIyJOy5nVBvl3L8wYJk VqSKidqjmALiV9E8TOrzh MvgeOfgP5u1YIXnH31ybM Llc3FwAHDoMKLku0UsvS9 8ZFihA5YcvGWyTEVlH4Tl nSQxq6rmxnSwUEZUSPkFW TxpqtW1aE4iq6PzQB5rNM WsOLKqh9DxJWloKIhzrtM jc7nfoeTmUwWbVN3aDVSe FMpaFGWyfYfaEX0jCeRUb gAopDYkhcCkKXXsp4X5lM T8eK2bVK3qZPOWQKToJ8K 3YVWlr6e0cFDuOMBiF1Rb jURpi3j8wGQ9UJBtNFAfA NYQSIJ8QHIdEWKMGHE9QK yzWLbjRL85bNSvWVCzVIN ludSjb6XxdyAva0h9fNNE LUxHTHMuXHBhclx+XHBhc eVBqPBzc9ofJ88fzv1qrD RoTcLnt5G0yEG5gN5zqgk gQXMgaWRlbnRpZmllZCBi xSXADND6GHUfHJGltFrls QTpO6F7cYPcHWBbAARkW4 FpgkwslGxvaqshX9GhdnC mx2Q4xCVvJKLkhCIlbSIr MHKbAeLqq3RivI65BWrpS 9QenWMdNWJnJYQdc09qD1 c6RQIrE41fuYWnw7AyRs7 lUTPeRaP8f4YpcNNzFZeo yz2zjSGqSA1miHEoFKJpF KQbRT2upS8ourlfHNFkgd JhVTDkSPv9lvVeNXTcpUE js5OogMXmw934eZEgiZZo I4JmsHDvSU1bsh3mPM0xr M7jeI0lhF4zIKRlGHymqe xtHC0fMYLlTrEeal4ulZK yfQ== DISCLAIMER (test code = f1rvqBYgQVQcjKL0VjTaX 3363) DXkz8ief3WrwNQjwYWoMY xpvRMavvZcpp97uJC8nX7 4UD6nQBHeIxG8FOOwcfY3 Tjh3QUOcQENstOJeX847d 9cda7lhhzNscWV1vYuuSP JkXHBsYWluXGZzMjIgVGh da0LadYTdqGBgk3LtUGNe LQGxjL0dQAVjVM7eRPNuB FqvYBKjxzHpgs0wpjNrDZ OuZWMtC1FrjsgumOikbrP aVNUfmn5gihFsAKA4QQVj aLwzvhEAoH0gFUAoJNisU G8lGZbeEJtsK7ZgxPUiJu DExYL3VOxbwcIrlj09JOM zCK7xD9xvWRVdJIMovoKs jDQps4DyLRPnnUN2oKLwS O7WUlUHh20mRIPzMIDPww YwFTLalByskNG6ecK9jZ5 uLiBUaGUgRkRBIGhhcyBk KQScfw1lvpLsGQVgKWFsj 4NotKFswSQhmkMdZ5Gdb7 YcPSXzvi20URczmNTvqg0 4XH0nX1Exw2JsvG9xXJCw s4ircTbaKQ7pnVWcZYVjA WdhcmRlZCBhcyBpbnZlc3 TeZ0F1eA7hHOrgo2WsCc7 yKUZub8IlvhMcGuKKlJrf TMatWi5dXGCslqjvvWKiP 2VydGlmaWVkIHVuZGVyIH RoZSBDbGluaWNhbCBMYWJ bsjU1g4S4HGiydPLlysUp DQ98PWDyRX7kbBRqsRKlu 8FsUSo6SKLoCaMBTJLzMN BhcyBxdWFsaWZpZWQgdG8 tfJPiGj1blNOvpYjkEMOm oKHlSJvltWzyJ7vldamvI AbmoDMcvVkaIr9qmXMjzN == Technical component was [facility]. Paulden's performed at ([facility]ly [facility], = 2778) Department of Pathology, [address] [place] [address], Professional component [facility]. Lu's was performed at ([facility], code = 2779) Department of Pathology, [address] [place] [address], [facility] [id number] 14:57:00Flow Cytometry Report Case: [id number] Authorizing Provider: Luis Felipe Jiménez MD Collected: 11/04/2020 09:30 AM Ordering Location: [facility] Received: 11/04/2020 10:09 AM SERVICES Pathologist: Brittani Milan MD Specimen: Other BRAIN MASS, RIGHT, FLOW CYTOMETRY:- MONOTYPIC B CELL POPULATION IDENTIFIED (32% OF CELLULARITY), CD5 AND CD10 NEGATIVE, LAMBDA-LIGHT CHAIN RESTRICTED Please see the corresponding surgical pathology report ([id number]) for correlation with morphologic findings.[id number] y.o. male with history of diffuse large B cell lymphoma, presents with acute neurologic dysfunction and found to have multiple large enhancing METAL BOX MAKER lesions.Cerebrospinal fluidCD8, lily face-kappa, CD56, surface-lambda, CD5, CD19, CD10, CD3, CD20, CD4, CD45, CD16, CD57, CD7, CD4, NG9Vjdsezaa Viability: 86.3% Number of Events Acquired: [id number] B cell population identified (32% of cellularity)POSITIVE: CD45, CD19, CD20, Lambda light chainNEGATIVE: CD5, CD10, [employer] light chain In addition, the following populations are identified: Lymphocytes: Bright CD45+ lymphocytes comprise 92.5% of total cells. T cells show a CD4:CD8 ratio of 0.1 and normal expression of hobbs T cell antigens. An expanded population of sCD3/CD8 positive T cells with variable CD56 and CD57 is identified,consistent with T- LGLs. Myeloid/monocytic populations: As identified by CD45 and light scatter characteristics, granulocytes comprise 0.6% of total cells, and monocytes comprise 7.3% of total cells. The remaining events analyzed represent nonviable cells, non-hematolymphoid cells, and debris.These tests were developed and their performance characteristics determined by [facility]. They have not been cleared or approved by the U.S. Food and Drug Administration. The FDA has determined that such clearance or approval is not necessary. It should not be regarded as investigational or for research. This laboratory is certified under the Clinical Laboratory Improvement Amendments bn3286 ("CLIA") as qualified to perform high-complexity clinical testing.[facility], Department of Pathology, [address] [place] [address], [facility], Department of [facility], [address] [place] [address], UMTA CYTOMETRY REQUISITION 2020-11-04 14:05:00 Test Item Value Reference Range Interpretation Comments FLOW CYTOMETRY RESULT See Separate Report POINTER (LONNIE) (test code = 2758) FLOW CYTOMETRY AP CASE # [id number] (BEAKER) (test code = 2759) CSF culture + gram [id number] 12:41:00 Test Item Value Reference Range Interpretation Comments Result (test code = 6463-4) No growth Gram Stain Result (test No organisms seen code = 1123) [facility] [id number] 12:41:00 Test Item Value Reference Range Interpretation Comments CULTURE (BEAKER) (test code No growth = 1095) GRAM STAIN RESULT (BEAKER) <1+ WBCs (test code = 1123) GRAM STAIN RESULT (BEAKER) No organisms seen (test code = 34265) CT, BRAIN, WITHOUT [id number] 12:27:00Unlisted Reason for Exam - Click Yes and Enter Reason Below->YesUnlisted Reason for Exam->Post-op R frontal craniCHI [facility]ITAL[facility]: CINTHIA CUEVAS : 1945 Sex: MFINAL REPORT CT Head without contrast CLINICAL HISTORY: Unlisted Georgina son for ExamPost-op R frontal crani TECHNIQUE: Contiguous axial CT images through the head without contrast. This exam was performed according to the departmental dose optimization program which includes automated exposure control, adjustment of the mA and/or kV according to the patient size, and/or us e of an iterative reconstruction technique. COMPARISON: MRI 10/31/2020 FINDINGS: The patient is status post right frontal craniotomy for biopsy of the underlying mass. There is small-volume pneumocephalus compatible with the recent postsurgical status. There is no CT evidence for acute infarct or hemorrhage. Extensive edema and mass effect from the previously demonstrated bilateral cerebral masses is similar appearing allowing for differences in technique. There is no other significant interval change. IMPRESSION: Since 10/23/2020, status post biopsy of a right frontal lobe mass without untoward intracranial application. Signed: Oc Roperort Verified Date/Time: 11/04/2020 12:27:05 ReadingLocation: [facility] B1 C013V Neuro Reading Room CT brain without IV [id number] 12:27:00Interface, External Ris In - 11/04/2020 12:[address] Head without contrast CLINICAL HISTORY: Unlisted Reason for ExamPost-op R frontal crani TECHNIQUE: Contiguous a xial CT images through the head without contrast. This exam was performed according to the departmental dose optimization program which includes automated exposure control, adjustment of the mA and/or kV according to the patient size, and/or use of an iterative reconstruction technique. COMPARISON: MRI 10/31/2020 FINDINGS: The patient is status post right frontal craniotomy for biopsy of the underlying mass. There is small-volume pneumocephalus compatible with the recent postsurgical status. There isno CT evidence for acute infarct or hemorrhage. Extensive edema and mass effect from the previously demonstrated bilateral cerebral masses is similar appearing allowing for differences in technique. The re is no other significant interval change. IMPRESSION: Since 10/23/2020, status post biopsy of a right frontal lobe mass without untoward intracranial application. Signed: Oc Roper MDReport Verified Date/Time: 11/04/2020 12:27:05 Reading Location: [facility] C0[facility])2020-11-04 05:06:00 Test Item Value Reference Range Interpretation Comments SARS-COV2/RT-PCR (test code Negative Not Detected, Negative, = [id number]) See external report for linked test SARS-COV-2 PERFORMING LAB [facility] (test code = 9855677) Negative results do not preclude SARS-CoV-2 infection [...] of the Act.Fact Sheet for Healthcare Pro viders:https://www.[employer]/Documents/Xpert%20Xpress%20SARS%20CoV-2/Fact%20Sh eets/3023802%81DSDJ-ERC-9%20HEALTHCARE%20PROVIDERS%20FACT%20SHEET.pdfFact Sheet for Healthcare Patients:https://www.[employer]/Documents/Xpert%20Xpress%20SARS%20CoV-2/Fact%20Sheets/3023801%20SARS-COV -2%20PATIENT%20FACT%20SHEET.pdfPerforming Laboratory:[facility], [place] [address]GVEKKXYDOYMPE METABOLIC [id number] 04:55:00 Test Item Value Reference Range Interpretation Comments TOTAL PROTEIN 6.0 gm/dL 6.0-8.3 (BEAKER) (test code = 770) ALBUMIN (BEAKER) 3.5 g/dL 3.5-5.0 (test code = 1145) ALKALINE PHOSPHATASE 68 U/L 40-150 (BEAKER) (test code = 346) BILIRUBIN TOTAL 0.7 mg/dL 0.2-1.2 (BEAKER) (test code = 377) SODIUM (BEAKER) (test 138 meq/L 136-145 code = 381) POTASSIUM (BEAKER) 4.0 meq/L 3.5-5.1 (test code = 379) CHLORIDE (BEAKER) 102 meq/L 98-107 (test code = 382) CO2 (BEAKER) (test 28 meq/L 22-29 code = 355) BLOOD UREA NITROGEN 29 mg/dL 7-21 H (BEAKER) (test code = 354) CREATININE (BEAKER) 0.80 mg/dL 0.57-1.25 (test code = 358) GLUCOSE RANDOM 120 mg/dL 70-105 H (BEAKER) (test code = 652) CALCIUM (BEAKER) 8.7 mg/dL 8.4-10.2 (test code = 697) AST (SGOT) (BEAKER) 30 U/L 5-34 (test code = 353) ALT (SGPT) (BEAKER) 35 U/L 6-55 (test code = 347) EGFR (BEAKER) (test 114 ESTIMATE D GFR IS code = 1092) mL/min/1.73 sq NOT ACCURA TE m CREATININE CLEARANCE IN PREDICTING GLOMERULAR FILTRATION RATE . ESTIMATED GFR I S NOT APPLICABLE FOR DIALYSIS PATIEN TS. Child Welfare Caseworker ID - [id number] (HEMOGRAM ONLY)2020-11-04 04:32:00 Test Item Value Reference Range Interpretation Comments WHITE BLOOD CELL COUNT (BEAKER) 6.1 K/ L 3.5-10.5 (test code = 775) RED BLOOD CELL COUNT (BEAKER) 3.29 M/ L 4.63-6.08 L (test code = 761) HEMOGLOBIN (BEAKER) (test code = 10.9 GM/DL 13.7-17.5 L 410) HEMATOCRIT (BEAKER) (test code = 31.9 % 40.1-51.0 L 411) MEAN CORPUSCULAR VOLUME (BEAKER) 97.0 fL 79.0-92.2 H (test code = 753) MEAN CORPUSCULAR HEMOGLOBIN 33.1 pg 25.7-32.2 H (BEAKER) (test code = 751) MEAN CORPUSCULAR HEMOGLOBIN CONC 34.2 GM/DL 32.3-36.5 (BEAKER) (test code = 752) RED CELL DISTRIBUTION WIDTH 13.2 % 11.6-14.4 (BEAKER) (test code = 412) PLATELET COUNT (BEAKER) (test 116 K/CU MM 150-450 L code = 756) MEAN PLATELET VOLUME (BEAKER) 10.7 fL 9.4-12.4 (test code = 754) NUCLEATED RED BLOOD CELLS 0 /100 WBC 0-0 (BEAKER) (test code = 413) CBC W/PLT COUNT & AUTO [id number] 21:08:00 Test Item Value Reference Range Interpretation Comments WHITE BLOOD CELL COUNT (BEAKER) 8.4 K/ L 3.5-10.5 (test code = 775) RED BLOOD CELL COUNT (BEAKER) 4.00 M/ L 4.63-6.08 L (test code = 761) HEMOGLOBIN (BEAKER) (test code = 13.4 GM/DL 13.7-17.5 L 410) HEMATOCRIT (BEAKER) (test code = 38.9 % 40.1-51.0 L 411) MEAN CORPUSCULAR VOLUME (BEAKER) 97.3 fL 79.0-92.2 H (test code = 753) MEAN CORPUSCULAR HEMOGLOBIN 33.5 pg 25.7-32.2 H (BEAKER) (test code = 751) MEAN CORPUSCULAR HEMOGLOBIN CONC 34.4 GM/DL 32.3-36.5 (BEAKER) (test code = 752) RED CELL DISTRIBUTION WIDTH 13.2 % 11.6-14.4 (BEAKER) (test code = 412) PLATELET COUNT (BEAKER) (test 154 K/CU MM 150-450 code = 756) MEAN PLATELET VOLUME (BEAKER) 10.8 fL 9.4-12.4 (test code = 754) NUCLEATED RED BLOOD CELLS 0 /100 WBC 0-0 (BEAKER) (test code = 413) NEUTROPHILS RELATIVE PERCENT 76 % (BEAKER) (test code = 429) LYMPHOCYTES RELATIVE PERCENT 8 % (BEAKER) (test code = 430) MONOCYTES RELATIVE PERCENT 14 % (BEAKER) (test code = 431) EOSINOPHILS RELATIVE PERCENT 0 % (BEAKER) (test code = 432) BASOPHILS RELATIVE PERCENT 0 % (BEAKER) (test code = 437) NEUTROPHILS ABSOLUTE COUNT 6.32 K/ L 1.78-5.38 H (BEAKER) (test code = 670) LYMPHOCYTES ABSOLUTE COUNT 0.64 K/ L 1.32-3.57 L (BEAKER) (test code = 414) MONOCYTES ABSOLUTE COUNT (BEAKER) 1.18 K/ L 0.30-0.82 H (test code = 415) EOSINOPHILS ABSOLUTE COUNT 0.00 K/ L 0.04-0.54 L (BEAKER) (test code = 416) BASOPHILS ABSOLUTE COUNT (BEAKER) 0.01 K/ L 0.01-0.08 (test code = 417) IMMATURE GRANULOCYTES-RELATIVE 3 % 0-1 H PERCENT (BEAKER) (test code = 2801) [id number] 19:22:00 Test Item Value Reference Range Interpretation Comments Phosphorus (test code 3.0 mg/dL 2.3-4.7 Specim en = 2777-1) slightly hemolyzed BEAR (test code = BEAR) Child Welfare Caseworker ID - DB Lab Interpretation Normal (test code = 58335-6) [facility] 19:22:00 Test Item Value Reference Range Interpretation Comments MAGNESIUM (BEAKER) 2.2 mg/dL 1.6-2.6 Specimen slightly (test code = 627) hemolyzed Child Welfare Caseworker ID - [id number] 19:22:00 Test Item Value Reference Range Interpretation Comments PHOSPHORUS (BEAKER) 3.0 mg/dL 2.3-4.7 Specimen slightly (test code = 604) hemolyzed Child Welfare Caseworker ID - DBBASIC METABOLIC [id number] 19:22:00 Test Item Value Reference Range Interpretation Comments SODIUM (BEAKER) 133 meq/L 136-145 L (test code = 381) POTASSIUM (BEAKER) 4.2 meq/L 3.5-5.1 Specimen slightly (test code = 379) hemolyzed CHLORIDE (BEAKER) 99 meq/L 98-107 (test code = 382) CO2 (BEAKER) (test 25 meq/L 22-29 code = 355) BLOOD UREA NITROGEN 33 mg/dL 7-21 H (BEAKER) (test code = 354) CREATININE (BEAKER) 0.81 mg/dL 0.57-1.25 Specimen slightly (test code = 358) hemolyzed GLUCOSE RANDOM 130 mg/dL 70-105 H (BEAKER) (test code = 652) CALCIUM (BEAKER) 8.8 mg/dL 8.4-10.2 (test code = 697) EGFR (BEAKER) (test 113 mL/min/1.73 ESTIM ATED GFR IS code = 1092) sq m NOT ACCURATE CREATININE CLEARANCE IN PREDICTING GLOMERULAR FILTRATION RATE . ESTIMATED GFR I S NOT APPLICABLE FOR DIALYSIS PATIEN TS. Child Welfare Caseworker ID - DBProthrombin time/[id number] 19:10:00 Test Item Value Reference Interpretation Comments Range Protime (test code = 13.8 See_Comment [Autom ated 5902-2) message] The system which generated this result transmitted reference range : 11.9 - 14.2 seconds. The reference range was not used to interpret this result as normal/abnormal . INR (test code = 1.09 See_Comment [Automated 6301-6) message] The system which generated this result transmitted reference range : <=5.90. The reference range was not used to interpret this result as normal/abnormal . BEAR (test code = Effective 12/31/2018: BEAR) PT Reference Range ChangeNew: 11.9-14.2 Previous: 11.7-14.7 RECOMMENDED COUMADIN/WARFARIN INR THERAPY RANGESSTANDARD DOSE: 2.0-3.0 Includes: PROPHYLAXIS for venous thrombosis, systemic embolization; TREATMENT for venous thrombosis and/or pulmonary embolus.HIGH RISK: Target INR is 2.5-3.5 for patients wiht mechanical heart valves. Lab Interpretation Normal (test code = 57267-3) [facility]:10[facility]00 Test Item Value Reference Range Interpretation Comments PTT (test code = 20.6 See_Comment L [Automated message] 10382-6) The system [employer] generated this result transmitted ref erence range: 22.5 - 3 6.0 seconds. The reference range was not used to int erpret this result as normal/abnormal . Lab Interpretation (test Abnormal code = 58203-6) [facility]/[id number] 19:10:00 Test Item Value Reference Range Interpretation Comments PROTIME (BEAKER) 13.8 seconds 11.9-14.2 (test code = 759) INR (BEAKER) (test 1.09 See_Comment [Automat ed message] code = 370) The system [employer] generated this result transmitted ref erence range: <=5.90. The reference range was not used to int erpret this result as normal/abnormal . Effective 12/31/2018: PT Reference Range ChangeNew: 11.9-14.2 Previous: 11.7- 14.7RECOMMENDED COUMADIN/WARFARIN INR THERAPY RANGESSTANDARD DOSE: 2.0-3.0 Includes: PROPHYLAXIS for venous thrombosis, systemic embolization; TREATMENT for venous thrombosis and/or pulmonary embolus.HIGH RISK: Target INR is2.5-3.5 for patients wiht mechanical heart valves.[id number] 19:10:00 Test Item Value Reference Range Interpretation Comments PARTIAL THROMBOPLASTIN TIME 20.6 seconds 22.5-36.0 L (BEAKER) (test code = 760) RAD, CHEST, 1 VIEW, NON [id number] 18:38:00Reason for exam:->Post-opShould this be performed at the bedside?->Yes [facility] 1945 Sex: MFINAL REPORT TECHNIQUE: Frontal view of the chest. INDICATION: Post- op. COMPARISON: Chest CT from 10/30/2020. FINDINGS: LINES/TUBES: A right chest port has its tip overthe mid SVC. LUNGS: The lungs are well inflated and clear. No consolidation or pulmonary edema. PLEURA: No pneumothorax or significant pleural effusion. HEART AND MEDIASTINUM: The cardiac silhouette isnormal in size. SOFT TISSUES AND BONES: Surgical jeanie over the right axilla. Hyperdensity of the left chest is most likely an old, healed fracture of the left anterior fourth rib. IMPRESSION: No acute intrathoracic abnormality. A right chest port has its tip over the mid SVC Signed: Moshe Mc MDReport Verified Date/Time: 11/03/2020 18:38:15 Reading Location: [facility] C013 Transitional Reading Room MR, BRAIN, [id number] 16:00:00PLEASE PERFORM W/ STEALTH PROTOCOLUnlisted Reason for Exam - Click Yes and Enter Reason Below->Yes Unlisted Reason for Exam->intracranial masses PLEASE PERFORM W/ STEALTH PROTOCOLCH[facility] : 1945 Sex: MAddendum BeginsREPORT STATUS:A Please note that the intracranial masses may also represent lymphoma and do have a somewhat characteristic appearance of lymphoma. The osseous lesions could also represent lymphomatous involvement, but clinical correlation is requested. The findings were discussed with Dr. Jiménez. Signed: Oc Roper MDReport Verified Date/Time: 11/03/2020 16:00:41 Reading Location: [address] Neuro Reading RoomAddendum EndsFINAL REPORT MRI Brain with and without contrast Clinical History: Unlisted Reason for Examintracranial masses PLEASE PERFORM W/ STEALTH PROTOCOL Technique: MRI of the brain utilizing axial T1, T2, FLAIR, GRE, DWI, sagittal T1; and postgadolinium axial, sagittal, and coronal T1-weighted images. Comparisons: None Findings: There is a mass in the right midfrontal lobe measuring 3.0 cm TV x 3.5 cm AP x 2.8 cm CC. There is a mass in the right external capsule/lateral lentiform nucleus region measuring 2.8cm TV x 3.6 cm AP x 3.4 cm CC. There is a mass in the left anterior temporal lobe measuring 1.9 cm TV x 1.9 cm AP x 2.0 cm CC. There is prominent T2 FLAIR hyperintense vasogenic edema surrounding all the masses, greatest in the right cerebral hemisphere. These edema changes track down the right-sidedcortical spinal tracts into the midbrain. There is mass effect with leftward midline shift of the septum pellucidum by 0.9 cm. Medial right uncal herniation also effaces the ambient cistern and contours the right middle cerebral peduncle. There is no hydrocephalus. There is no evidence for acute infarct or hemorrhage. There is generalized parenchymal volume loss. There are no extra-axial fluid collections. The craniocervical junction is preserved. The major intracranial flow-voids appear patent. Multifocal areas of marrow signal abnormality are also seen in the calvarium, skull base, and visualized upper cervical spine compatible with metastatic disease. IMPRESSION: Three enhancing supratentorial masses compatible with metastatic disease. Osseous metastatic disease also noted. Signed: Oc Roper MDReport Verified Date/Time: 10/31/2020 15:41:55 Reading Location: [address] Neuro Reading Room [id number] 15:49:00 Test Item Value Reference Range Interpretation Comments Case Report (test code Medical Cytology = 104) Report Case: [id number] Authorizing Provider: Ivette Aguirre MD Collected: 11/02/2020 11:06 AM Ordering Location: [place] [address] ICU Received: 11/02/2020 12:29 PM Pathologist: Wayne Mcadams MD Specimen: CSF DIAGNOSIS (test code = [id number] 3220) FuZzEwMzNcZnRuYmpcdWMx IHtccnRmMVxlcGljOTIwMl dluxQaZNZaoKQbI2Ghpatp KLuaRR8hMQ0mzZafhLUgjF VrUESaQtWcq5hdi529jONy u4xxROKBqzvjvDk2gBqdP7 3tq3U7OvmuN89aoQUwNMgh bGFpblxmczIwIENFUkVCUk 9TUElOQUwgRkxVSUQgKENZ SK1UCTiTRfq1LXMepqSdKM AdLV3FD2HWMPIWNWBMMiJY OHcPRHIOHAAGYH1FRDaSPs MTX5vwEZNjgiTdOFDcEWSr ETO9ELTqHXCynLGezWFkzO 2ddV2avEQvsmGqeuJeSW20 MPPgft26KKJ4WyUel7D8OV T1IQSnMHDvp8osDRQsmOVm ZzEwMzNcZnRuYmpcdWMxXG BtFxBvd7imo495jDEpe7cx HOAyRqY7gAUyNAZikBYuL2 57DTZyANavg6eji9YvMEOd tMAqs9I6FGCQkyyauJk5hO ypF41gy3W8TuorU4rbOJVz KWWaT4IlAJ0zYSIgVja6GD A8QUE8KUIaIDEkC1NjIU9l MTCqaDTmSIj6o2eucZzzUA VdGGX9v1poRXvikrZeGF8s te8xyZu7j1qminPcEEEuGZ XidTQPSZUoX5JtgQukDc5o zGp4lBcbLrlsPPQ9Zyq8JP 7jtp29uut7tUygABBngvhr WaB9MWfiWDHsqlrhDSv9WX mtOPQzaPG4YCHugPUiT4Kc QSJlZG5yhnd4OCK2EUifSV ByYkT6INHqhUZoUIEjaArp TAvve449LRW0ZpTvUJ0fA2 Psv9L3jW5zkVBsDTXnfCOw XnEnCSNblw1agGVlFKrkr3 GvCHL7kvI3jOPkkGDlXRPl TgC9SBbyLQ0zza11YSCkGK Y3vz2ljUJgiHpxvuRjaSPt BZraN5MhFTAub601YNJlB9 MnXIIeh8N5moPyJiUwRXAm nEU0xqU6XAXiYN5edjnxs9 nuKOzmVVpbTBYraeJ9xfV2 WBFirGQoJ8WowP3kKIDsNH 8kgwlau6kqEIJ9CHjdPCXx HVM7GwXbEUBlo2Zdxta0Kj Tpy5JfhZTbGDthP45sv901 SIPbbhVmU3hfmZZucliovB HismcgGBjajgD4HAHsURco ynbhRMOkTFxuM9xbSjRkQQ GdaRvnNDitr9KoXZFkDYAn JgRnbYHjNYIfZdk2BDUgfY GbDLRkHxHxO0pksydyDjSZ QSCpl1mrL5dvcNRWuMOrW9 QgUGhvbmUgTGluZTogODMy BSB6ND30ZLejMEAsmr22 CPT Code(s) (test code p5eyvABdOSRsmYI0XkRoAW = 3357) Cqt4iqh2QpfRZjjPVhPXra aDAlptEgzq99wZE2pN43LB 6kGOLsFfC9XLMwpyN8Hef8 PYFkDVSgzQUzL750j2zpv2 ciygFynPD4mAnnDMWuLAWy YWluXGZzMjAgODgxMDhccG FyfQ== CLINICAL DATA (test w1rkfYIaSIMyhWC4BkDgJK code = 3355) Mtt6ukj0XlqLSccQQoLPbp pWBiveFyet26wQZ2uH71FO 7lNSUlOsH2PRFqztR8Rcx7 JOAzQWJdjRZcF726h2erm2 yapiWptWD1tXxjKAMmNJKi GAfeFXXrOkQgwURys9IfmH Ptk2l7xANiB1C6BYRtEDOh l6wuJ1poLDB3n8Q7vaX3zD 0jHHAaVZQmy1FqDLB7jmNh XKNwDN30yCUsnHikLQxcah ezOGUevFOaL9bwEjQTEqGi cYFzqL2fqymzuWathV3jkW QyJqTTFHJTGQU8HoPvNxYq UMOiMNX8cTX5UFheftBnLJ VlFCDwRNE6WGQvkkDbMS36 dZdts4s4aUO0HzVhOyVAH1 pIKTHqntGjgO0yK5XwnGAp SKRIOVWTPYJwA2XdVXKsni 0= SPECIMEN SOURCE (test a1auaPQsGZQvnPK2DbLxVU code = 3377) Lza9nlc5MqdFRwrRWvTMbs lXNqoeVuqs64lKF1xC08LT 8mWJJwBaG5KAKoftX0Mdm7 SNFlKSHqrESrS887a8rti4 tfspGzwRS1tAsuCVGcMDGn MDhwDRPnWnZvQ1QEBUTKC9 NVWK2UPBTMPAXUOOieKEG3 GROSS DESCRIPTION (test a3tixKNoPDWblKB2JsZsXY code = 3366) Tpr6ymf1YtiLNlbRTtXVup cMWmgwUqdg42fBH5yM76DH 3sBXFrNdG6ELIdyiI4Kar1 UICwCNTtzJDdJ082i1kxd7 eytoPlrWJ5uVnmXYYiLBUz XOodFMMpBeKvXmLiYMe9FB KbZROjpLPseOEnnlxeU67p m5GbYSSfAYHzhPthCzVera LmOUTvLNCkYCM3uK1woOrp cyBccGFyfQ== MICROSCOPIC DESCRIPTION l5pxkDFsEXVtqBH3UxTbLK (test code = 3371) Roh4ppx7JldHNzvVZhRIbk hYXnluCsex63cEV4kQ09SL 5sSAPfIcV9FHRkwaF2Wqa5 VXYgUROktOFeO077h2rmo3 teoiDjnTG3cQdeJBQuRRXa XLxwZTOhVeMcZYCuKq3kvE VkLiBccGFyfQ== STATEMENT OF ADEQUACY Satisfactory (test code = 2757) Gross assessment was [facility]'s performed at (test code Medical Center, = 8773) Department of Pathology, [address] [place] [address], [place] [address], Technical component was [facility] performed at ([facility], = 2778) Department of Pathology, [address] [place] [address], Professional component [facility] was performed at ([facility], code = 2779) Department of Pathology, [address] [place] [address], [facility] 15:49:00Medical Cytology Report Case: [id number] Aut horizing Provider: Ivette Aguirre MD Collected: 11/02/2020 11:06 AM Ordering Location: [address] Received: 11/02/2020 12:29 PM Pathologist: Wayne Mcadams MD Specimen: CSF CEREBROSPINAL F LUID (CYTOSPINS): - NEGATIVE FOR EPITHELIAL MALIGNANCY. 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 [facility], Department of Pathology, [address] [place] [address], [facility], Department of Pathology, [address] [place] [address], [facility], Department of Pathology, [address] [place] [address], OGKS [id number] 15:47:00Flow Cytometry Report Case: [id number] Authorizing Provider: Ivette Aguirre MD Collected: 11/02/2020 11:06 AM Ordering Location: [address] Received: 11/03/2020 12:07 PM Service Pathologist: Wayne Mcadams MD Specimen: Other CEREBROSPINAL FLUID, FLOW CYTOMETRY:- LIMITED STUDY DUE TO THE LOW CELLULARITY- VIRTUALLY NO B CELL DETECTED- NO ABERRANT T CELL POPULATION Flow cytometry of a lymph node sample demonstrates a paucicellular sample limiting the evaluation. Only 3,572 events analyzed. Routine flow cytometry at [facility] acquires 100,000 events for flow cytometric analysis. Virtually no B cells detected. No aberrant T identified. Recommend correlation with cytology s amples.[id number] yo male with subacute onset confusion and falls with new brain masses in setting of history of lymphomaCSFCD8, surface-kappa, CD56, surface- lambda, CD5, CD19, CD10, CD3, CD20, CD4, MK48Ejyvriuc Viability: 88.4% Number of Events Acquired: 3572 The following populations are identified :Lymphocytes: Bright CD45+ lymphocytes comprise 76.1% of total cells. T cells show a CD4:CD8 ratio of 0.9 and normal expression of the hobbs T cell antigens CD3 and CD5. Virtually no B cells are detected . Myeloid/monocytic populations: As identified by CD45 and light scatter characteristics, granulocytes comprise 8.6%of total cells, and monocytes comprise 45.6% of total cells. The remaining events analyzed represent nonviable cells, non-hematolymphoid cells, and debris.These tests were developed andtheir performance characteristics determined by [facility]. They have not beencleared or approved by the U.S. Food and Drug Administration. The FDA has determined that such clearance or approval is not necessary. It should not be regarded as investigational or for research. Thislaboratory is certified under the Clinical Laboratory Improvement Amendments of 1988 ("CLIA") as qualified to perform high- complexity clinical testing.[facility], Department of Pat hology, [address] [place] [address], [facility], Department of Pathology, [address] [place] [address], Hjfbxce Leuko-Red [id number] 23:54:00 Test Item Value Reference Range Interpretation Comments Unit ABO (test code = 5209385) A Pos UNIT NUMBER (test code = [id number] 934-0) Status (test code = 6186774) [place]_TIMEINCHART Blood Bank Product (test code PLATELETS = 2263) PRODUCT CODE (test code = T9384Z75 933-2) [facility] with [id number] 13:48:00 Test Item Value Reference Range Interpretation Comments Appearance (test code = Clear Clear 65888-1) Color (test code = Colorless Colorless 76804-8) RBCs (test code = 1 See_Comment [Automate d message] 792-2) The system [employer] generated this result transmit lana reference range : 0 - 5 /cu mm. The reference range was not used to interpret this result as normal/abnormal . WBCs (test code = 6 See_Comment H [Automate d message] 806-0) The system [employer] generated this result transmit lana reference range : <=5 /cu mm. The reference range was not used to interpret this result as normal/abnormal . RBCs Fresh? (test code 100% Fresh = 88950-9) # of Cells Diff'd (test 100 code = 00407-8) % Neutros (test code = 0 % 0-5 25843-3) % Lymphs (test code = 44 % 40-80 97066-8) % Monos (test code = 56 % 15-45 H 439) % Eos (test code = 360) 0 % See_Comment [Au tomated message] The system [employer] generated this result transmit lana reference range : <=0. The refere nce range was not u sed to interpret th is result as normal/abnormal . % Baso (test code = 0 % See_Comment [Automa lana message] 440) The system [employer] generated this result transmit lana reference range : <=0. The refere nce range was not u sed to interpret th is result as normal/abnormal . Tube Number (test code 1 = 2677) Lab Interpretation Abnormal (test code = 44801-7) [facility] W/[id number] 13:48:00 Test Item Value Reference Range Interpretation Comments APPEARANCE CSF Clear Clear (BEAKER) (test code = 407) COLOR CSF (BEAKER) Colorless Colorless (test code = 408) RBC CSF (BEAKER) (test 1 /cu mm 0-5 code = 409) WBC CSF (BEAKER) (test 6 /cu mm See_Comment H [Aut omated message] code = 1020) The system [employer] h generated this result transmitted ref erence range: <=5. The reference range was not used to int erpret this result as normal/abnormal . RBCS FRESH (BEAKER) 100% Fresh (test code = 1444) NUMBER OF CELLS DIFF'D 100 (BEAKER) (test code = 1591) NEUTROPHIL, CSF 0 % 0-5 (BEAKER) (test code = 324) LYMPHS CSF (BEAKER) 44 % 40-80 (test code = 438) MONO/MACROPHAGE CSF 56 % 15-45 H (BEAKER) (test code = 439) EOSINOPHILS CSF 0 % See_Comment [Automated message] (BEAKER) (test code = The sy stem which 360) generated this result transmitted ref erence range: <=0. The reference range was not used to int erpret this result as normal/abnormal . BASO CSF (BEAKER) 0 % See_Comment [Automate d message] (test code = 440) The system which generated this result transmitted ref erence range: <=0. The reference range was not used to int erpret this result as normal/abnormal . TUBE NUMBER CSF 1 (BEAKER) (test code = 2678) Glucose, [id number] 12:22:00 Test Item Value Reference Range Interpretation Comments Glucose, CSF (test code = 75 mg/dL 40-70 H 2342-4) BEAR (test code = BEAR) Child Welfare Caseworker ID - LYNN C Lab Interpretation (test Abnormal code = 56664-9) [facility] HospitalProtein, [id number] 12:22:00 Test Item Value Reference Range Interpretation Comments Protein, CSF (test code = 180 mg/dL 15-45 H 2880-3) BEAR (test code = BEAR) Child Welfare Caseworker ID - LYNN C Lab Interpretation (test Abnormal code = 67426-5) [facility]GLU[facility]SE, [id number] 12:22:00 Test Item Value Reference Range Interpretation Comments GLUCOSE CSF (BEAKER) (test code = 75 mg/dL 40-70 H 406) Child Welfare Caseworker ID - LYNN CPROTEIN, [id number] 12:22:00 Test Item Value Reference Range Interpretation Comments PROTEIN CSF (BEAKER) (test code = 180 mg/dL 15-45 H 378) Child Welfare Caseworker ID - LYNN CCBC W/PLT COUNT & AUTO [id number] 09:48:00 Test Item Value Reference Range Interpretation Comments WHITE BLOOD CELL COUNT 6.0 K/ L 3.5-10.5 (BEAKER) (test code = 775) RED BLOOD CELL COUNT 2.86 M/ L 4.63-6.08 L (BEAKER) (test code = 761) HEMOGLOBIN (BEAKER) 9.6 GM/DL 13.7-17.5 L (test code = 410) HEMATOCRIT (BEAKER) 27.9 % 40.1-51.0 L (test code = 411) MEAN CORPUSCULAR 97.6 fL 79.0-92.2 H VOLUME (BEAKER) (test code = 753) MEAN CORPUSCULAR 33.6 pg 25.7-32.2 H HEMOGLOBIN (BEAKER) (test code = 751) MEAN CORPUSCULAR 34.4 GM/DL 32.3-36.5 HEMOGLOBIN CONC (BEAKER) (test code = 752) RED CELL DISTRIBUTION 13.2 % 11.6-14.4 WIDTH (BEAKER) (test code = 412) PLATELET COUNT 128 K/CU MM 150-[address] T (BEAKER) (test code = result compared to 756) previous result ; clinical correl ation required. MEAN PLATELET VOLUME 10.7 fL 9.4-12.4 (BEAKER) (test code = 754) NUCLEATED RED BLOOD 0 /100 WBC 0-0 CELLS (BEAKER) (test code = 413) (CELLAVISION MANUAL DIFF)2020-11-02 09:48:00 Test Item Value Reference Range Interpretation Comments NEUTROPHILS - REL 90 % (CELLAVISION)(BEAKER) (test code = 2816) LYMPHOCYTES - REL 7 % (CELLAVISION)(BEAKER) (test code = 2817) MONOCYTES - REL 3 % (CELLAVISION)(BEAKER) (test code = 2818) NEUTROPHILS - ABS 5.40 K/ul 1.78-5.38 H (CELLAVISION)(BEAKER) (test code = 2830) LYMPHOCYTES - ABS 0.42 K/ul 1.32-3.57 L (CELLAVISION)(BEAKER) (test code = 2831) MONOCYTES - ABS 0.18 K/uL 0.30-0.82 L (CELLAVISION)(BEAKER) (test code = 2832) TOTAL COUNTED (BEAKER) (test code 100 = 1351) MANUAL NRBC PER 100 CELLS 1 /100 WBC 0-0 H (BEAKER) (test code = 1353) WBC MORPHOLOGY (BEAKER) (test Normal code = 487) GIANT PLATELETS (BEAKER) (test Present code = 313) LARGE PLT(BEAKER) (test code = Present 2156) POLYCHROMATOPHILLIC RBCS(BEAKER) 1+ few (test code = 478) HYPOCHROMIA (BEAKER) (test code = 1+ few 963) ANISOCYTOSIS (BEAKER) (test code 1+ few = 961) POIKILOCYTES (BEAKER) (test code 1+ few = 966) SPHEROCYTES (BEAKER) (test code = 2+ moderate 768) ELLIPTOCYTES (BEAKER) (test code 2+ moderate = 962) OVALOCYTES (BEAKER) (test code = 1+ few 477) ARTIFACT (CELLAVISION)(BEAKER) Present (test code = 3432) PLATELET CONCENTRATION Decreased (CELLAVISION)(BEAKER) (test code = 3438) Child Welfare Caseworker ID - Asya Fox comments: Slide comments:COMPREHENSIVE METABOLIC [id number] 06:19:00 Test Item Value Reference Range Interpretation Comments TOTAL PROTEIN 6.2 gm/dL 6.0-8.3 (BEAKER) (test code = 770) ALBUMIN (BEAKER) 3.5 g/dL 3.5-5.0 (test code = 1145) ALKALINE PHOSPHATASE 66 U/L 40-150 (BEAKER) (test code = 346) BILIRUBIN TOTAL 0.6 mg/dL 0.2-1.2 (BEAKER) (test code = 377) SODIUM (BEAKER) (test 135 meq/L 136-145 L code = 381) POTASSIUM (BEAKER) 4.2 meq/L 3.5-5.1 (test code = 379) CHLORIDE (BEAKER) 104 meq/L 98-107 (test code = 382) CO2 (BEAKER) (test 24 meq/L 22-29 code = 355) BLOOD UREA NITROGEN 37 mg/dL 7-21 H (BEAKER) (test code = 354) CREATININE (BEAKER) 0.95 mg/dL 0.57-1.25 (test code = 358) GLUCOSE RANDOM 125 mg/dL 70-105 H (BEAKER) (test code = 652) CALCIUM (BEAKER) 9.1 mg/dL 8.4-10.2 (test code = 697) AST (SGOT) (BEAKER) 29 U/L 5-34 (test code = 353) ALT (SGPT) (BEAKER) 23 U/L 6-55 (test code = 347) EGFR (BEAKER) (test 94 mL/min/1.73 ESTIMA LANA GFR IS code = 1092) sq m NOT ACCURATE CREATININE CLEARANCE IN PREDICTING GLOMERULAR FILTRATION RATE . ESTIMATED GFR I S NOT APPLICABLE FOR DIALYSIS PATIEN TS. Child Welfare Caseworker ID - LUCIA [id number] 06:19:00 Test Item Value Reference Range Interpretation Comments MAGNESIUM (BEAKER) (test code = 2.3 mg/dL 1.6-2.6 627) Child Welfare Caseworker ID - LUCIA [id number] 06:19:00 Test Item Value Reference Range Interpretation Comments PHOSPHORUS (BEAKER) (test code = 3.8 mg/dL 2.3-4.7 604) Child Welfare Caseworker ID - LUCIA [id number] 05:59:00 Test Item Value Reference Interpretation Comments Range Protime (test code = 14.1 See_Comment [Autom ated 9732-2) message] The system which generated this result transmitted reference range : 11.9 - 14.2 seconds. The reference range was not used to interpret this result as normal/abnormal . INR (test code = 1.12 See_Comment [Automated 3531-6) message] The system which generated this result transmitted reference range : <=5.90. The reference range was not used to interpret this result as normal/abnormal . PTT (test code = 27.2 See_Comment [Automated 26598-4) message] The system which generated this result [...] patients wiht mechanical heart valves. Lab Interpretation Normal (test code = 47268-7) [facility][id number] 05:59:00 Test Item Value Reference Range Interpretation Comments PROTIME (BEAKER) (test 14.1 seconds 11.9-14.2 code = 759) INR (BEAKER) (test 1.12 See_Comment [Automat ed code = 370) message] The sy stem which generated this result transmitted reference range : <=5.90. The reference range was not used to interpret this result as normal/abnormal . PARTIAL THROMBOPLASTIN 27.2 seconds 22.5-36.0 TIME (BEAKER) (test code = 760) Effective 12/31/2018: PT Reference Range ChangeNew: 11.9-14.2 Previous: 11.7- 14.7RECOMMENDED COUMADIN/WARFARIN INR THERAPY RANGESSTANDARD DOSE: 2.0-3.0 Includes: PROPHYLAXIS for venous thrombosis, systemic embolization; TREATMENT for venous thrombosis and/or pulmonary embolus.HIGH RISK: Target INR is2.5-3.5 for patients wiht mechanical heart valves.RAD, KNEE, 1 OR 2 VIEWS, LEFT 2020-11-01 16:15:00Reason for exam:->Pt reports recent fracture/swelling [facility] : 1945 Sex: MFINAL REPORT TECHNIQUE: RAD, KNEE, 1 OR 2 VIEWS, LEFT INDICATION: Pt reports recent fracture/swelling COMPARISON: None. FINDINGS:No acute fracture or malalignment. 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 No knee joint effusion. There are diffuse vascular calcifications.. IMPRESSION:Mild tricompartmental osteoarthrosis.. Signed: Duke Roldan Ve rified Date/Time: 11/01/2020 16:15:38 Reading Location: [address] Transitional Reading Room XR knee 1 or 2 views [id number] 16:15:00Interface, External Ris In - 11/01/2020 4:17 PM CDTFINAL REPORT TECHNIQUE: RAD, KNEE, 1 OR 2 VIEWS, LEFT INDICATION: Pt reports recent fracture/swelling COMPARISON: None. FINDINGS:No acute fracture or malalignment. 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 No knee joint effusion. There are diffuse vascular calcifications.. IMPRESSION:Mild tricompartmental osteoarthrosis..Signed: Duke Roldan Verified Date/Time: 11/01/2020 16:15:38 Reading Location: [address] Transitional Reading [facility] [id number] 06:15:00 Test Item Value Reference Range Interpretation Comments POC-GLUCOSE METER 124 mg/dL 70-110 H : TESTED A T [facility] 6720 (BEAKER) (test code = ANIL [place], 1538) [address]: Child Welfare Caseworker/Techni isiah ID = [id number] for BEE JOHNSON [id number] 05:26:00 Test Item Value Reference Range Interpretation Comments MAGNESIUM (BEAKER) 2.3 mg/dL 1.6-2.6 Specimen slightly (test code = 627) hemolyzed Child Welfare Caseworker ID - LESLEY [id number] 05:26:00 Test Item Value Reference Range Interpretation Comments PHOSPHORUS (BEAKER) 4.3 mg/dL 2.3-4.7 Specimen slightly (test code = 604) hemolyzed Child Welfare Caseworker ID - LESLEY MCOMPREHENSIVE METABOLIC [id number] 05:26:00 Test Item Value Reference Range Interpretation Comments TOTAL PROTEIN 6.7 gm/dL 6.0-8.3 Specimen sligh tly (BEAKER) (test code = hemoly zed 770) ALBUMIN (BEAKER) 3.6 g/dL 3.5-5.0 Specimen sl ightly (test code = 1145) hemolyzed ALKALINE PHOSPHATASE 72 U/L 40-150 (BEAKER) (test code = 346) BILIRUBIN TOTAL 0.9 mg/dL 0.2-1.2 Specimen sli ghtly (BEAKER) (test code = hemoly zed 377) SODIUM (BEAKER) (test 136 meq/L 136-145 code = 381) POTASSIUM (BEAKER) 4.6 meq/L 3.5-5.1 Specimen slightly (test code = 379) hemolyzed CHLORIDE (BEAKER) 103 meq/L 98-107 (test code = 382) CO2 (BEAKER) (test 23 meq/L 22-29 code = 355) BLOOD UREA NITROGEN 31 mg/dL 7-21 H (BEAKER) (test code = 354) CREATININE (BEAKER) 0.92 mg/dL 0.57-1.25 Specimen slightly (test code = 358) hemolyzed GLUCOSE RANDOM 128 mg/dL 70-105 H (BEAKER) (test code = 652) CALCIUM (BEAKER) 9.3 mg/dL 8.4-10.2 (test code = 697) AST (SGOT) (BEAKER) 42 U/L 5-34 H Specimen slightly (test code = 353) hemolyzed ALT (SGPT) (BEAKER) 21 U/L 6-55 Specimen slightly (test code = 347) hemolyzed EGFR (BEAKER) (test 97 mL/min/1.73 ESTIMA LANA GFR IS code = 1092) sq m NOT ACCURATE CREATININE CLEARANCE IN PREDICTING GLOMERULAR FILTRATION RATE . ESTIMATED GFR I S NOT APPLICABLE FOR DIALYSIS PATIEN TS. Child Welfare Caseworker ID - LESLEY [id number] 05:13:00 Test Item Value Reference Range Interpretation Comments D-DIMER QUANTITATIVE (BEAKER) 2.03 MG/L FEU <0.50 H (test code = 671) Intended Use: The D-Dimer Assay can be used to aid in the diagnosis of Deep Vein Thrombosis (DVT) and Pulmonary Embolism Disease (PED).In patients with low pre- test probability, various studies concerning STA Liatest D-dimer test have reported that with a cutoff value of 0.50 MG/L FEU, the Negative Predictive Value (NPV) regarding the exclusion of thrombosis is within 95-100% range. [id number] 05:10:00 Test Item Value Reference Range Interpretation Comments Fibrinogen (test code = 3255-7) 406 mg/dl 225-434 Lab Interpretation (test code = Normal 96766-0) [facility] 05:10:00 Test Item Value Reference Range Interpretation Comments FIBRINOGEN LEVEL (BEAKER) (test 406 mg/dl 225-434 code = 658) [id number] 05:10:00 Test Item Value Reference Range Interpretation Comments PROTIME (BEAKER) (test 14.6 seconds 11.9-14.2 H code = 759) INR (BEAKER) (test 1.17 See_Comment [Automat ed code = 370) message] The sy stem which generated this result transmitted reference range : <=5.90. The reference range was not used to interpret this result as normal/abnormal . PARTIAL THROMBOPLASTIN 29.3 seconds 22.5-36.0 TIME (BEAKER) (test code = 760) Effective 12/31/2018: PT Reference Range ChangeNew: 11.9-14.2 Previous: 11.7- 14.7RECOMMENDED COUMADIN/WARFARIN INR THERAPY RANGESSTANDARD DOSE: 2.0-3.0 Includes: PROPHYLAXIS for venous thrombosis, systemic embolization; TREATMENT for venous thrombosis and/or pulmonary embolus.HIGH RISK: Target INR is2.5-3.5 for patients wiht mechanical heart valves.CBC W/PLT COUNT & AUTO [id number] 05:04:00 Test Item Value Reference Range Interpretation Comments WHITE BLOOD CELL COUNT (BEAKER) 4.3 K/ L 3.5-10.5 (test code = 775) RED BLOOD CELL COUNT (BEAKER) 3.19 M/ L 4.63-6.08 L (test code = 761) HEMOGLOBIN (BEAKER) (test code = 10.6 GM/DL 13.7-17.5 L 410) HEMATOCRIT (BEAKER) (test code = 30.8 % 40.1-51.0 L 411) MEAN CORPUSCULAR VOLUME (BEAKER) 96.6 fL 79.0-92.2 H (test code = 753) MEAN CORPUSCULAR HEMOGLOBIN 33.2 pg 25.7-32.2 H (BEAKER) (test code = 751) MEAN CORPUSCULAR HEMOGLOBIN CONC 34.4 GM/DL 32.3-36.5 (BEAKER) (test code = 752) RED CELL DISTRIBUTION WIDTH 13.3 % 11.6-14.4 (BEAKER) (test code = 412) PLATELET COUNT (BEAKER) (test code 80 K/CU MM 150-450 L = 756) MEAN PLATELET VOLUME (BEAKER) 12.1 fL 9.4-12.4 (test code = 754) NUCLEATED RED BLOOD CELLS (BEAKER) 0 /100 WBC 0-0 (test code = 413) NEUTROPHILS RELATIVE PERCENT 83 % (BEAKER) (test code = 429) LYMPHOCYTES RELATIVE PERCENT 9 % (BEAKER) (test code = 430) MONOCYTES RELATIVE PERCENT 5 % (BEAKER) (test code = 431) EOSINOPHILS RELATIVE PERCENT 0 % (BEAKER) (test code = 432) BASOPHILS RELATIVE PERCENT 0 % (BEAKER) (test code = 437) NEUTROPHILS ABSOLUTE COUNT 3.57 K/ L 1.78-5.38 (BEAKER) (test code = 670) LYMPHOCYTES ABSOLUTE COUNT 0.40 K/ L 1.32-3.57 L (BEAKER) (test code = 414) MONOCYTES ABSOLUTE COUNT (BEAKER) 0.23 K/ L 0.30-0.82 L (test code = 415) EOSINOPHILS ABSOLUTE COUNT 0.00 K/ L 0.04-0.54 L (BEAKER) (test code = 416) BASOPHILS ABSOLUTE COUNT (BEAKER) 0.00 K/ L 0.01-0.08 L (test code = 417) IMMATURE GRANULOCYTES-RELATIVE 3 % 0-1 H PERCENT (BEAKER) (test code = 0591) POCT-GLUCOSE [id number] 23:44:00 Test Item Value Reference Range Interpretation Comments POC-GLUCOSE METER 128 mg/dL 70-110 H : TESTED A T [facility] 6720 (BEAKER) (test code = ANIL [place], 1538) [address]: Child Welfare Caseworker/Techni isiah ID = [id number] for BEE JOHNSON HIV-1 Antigen with HIV-1/2 [id number] 19:00:00 Test Item Value Reference Range Interpretation Comments HIV-1 Antigen with HIV 1&2 Nonreactive Nonreactive Antibody (test code = 99921-3) BEAR (test code = BEAR) Child Welfare Caseworker ID - DB Lab Interpretation (test Normal code = 32886-8) [facility] ANTIGEN WITH HIV-1/2 [id number] 19:00:00 Test Item Value Reference Range Interpretation Comments HIV-1 ANTIGEN WITH HIV 1\\T\\2 Nonreactive Nonreactive ANTIBODY (2) (BEAKER) (test code = 2586) Child Welfare Caseworker ID - DBLactate dehydrogenase (LDH)2020-10-31 18:42:00 Test Item Value Reference Range Interpretation Comments LDH (test code = 2532-0) 252 U/L 125-220 H BEAR (test code = BEAR) Child Welfare Caseworker ID - DBOperator ID - DB Lab Interpretation (test Abnormal code = 30610-0) [facility] HospitalUric [id number] 18:42:00 Test Item Value Reference Range Interpretation Comments Uric Acid (test code = 4.8 mg/dL 2.6-7.2 3084-1) BEAR (test code = BEAR) Child Welfare Caseworker ID - DB Lab Interpretation (test Normal code = 90393-5) [facility] HospitalURIC [id number] 18:42:00 Test Item Value Reference Range Interpretation Comments URIC ACID (BEAKER) (test code = 4.8 mg/dL 2.6-7.2 773) Child Welfare Caseworker ID - DBLACTATE DEHYDROGENASE (LDH)2020-10-31 18:42:00 Test Item Value Reference Range Interpretation Comments LACTATE DEHYDROGENASE (BEAKER) (test 252 U/L 125-220 H code = 635) Child Welfare Caseworker ID - DBOperator ID - DBPeripheral Blood Smear - Hold [id number] 18:40:00 Test Item Value Reference Range Interpretation Comments Peripheral Smear Save (test code = saved 1815) [facility] HospitalPERIPHERAL [facility]LOOD S[facility]AR - HOLD [id number] 18:40:00 Test Item Value Reference Range Interpretation Comments PERIPHERAL SMEAR SAVE (LONNIE) (test saved code = 1815) POCT-GLUCOSE [id number] 17:54:00 Test Item Value Reference Range Interpretation Comments POC-GLUCOSE METER 144 mg/dL 70-110 H : TESTED A T [facility] 6720 (LONNIE) (test code = ANIL Cordova [facility], 1538) [address]: Child Welfare Caseworker/Techni isaih ID = [id number] for LE IJA, AURA MR brain without & with IV [id number] 15:41:00Interface, External Ris In - 11/03/2020 4:02 PM CDTAddendum BeginsREPORT STATUS:A Please note that the intracranial masses may also represent lymphoma and do have a somewhat characteristic appearance of lymphoma. The osseous lesions could also represent lymphomatous involvement, but clinical correlation is requested. The findings were discussed with Dr. Jiménez. Signed: Oc Roper MDReport Verified Date/Time: 11/03/2020 16:00:41 Reading Location: [address] Neuro ReadingRoomAddendum EndsFINAL REPORT MRI Brain with and without contrast Clinical History: Unlisted Reason for Examintracranial masses PLEASE PERFORM W/ STEALTH PROTOCOL Technique: MRI of the brain utilizing axial T1, T2, FLAIR, GRE, DWI, sagittal T1; and postgadolinium axial, sagittal, and coronal T1-weighted images. Comparisons: None Findings: There is a mass in the right midfrontallobe measuring 3.0 cm TV x 3.5 cm AP x 2.8 cm CC. There is a mass in the right external capsule/lateral lentiform nucleus region measuring 2.8 cm TV x 3.6 cm AP x 3.4 cm CC. There is a mass in the leftanterior temporal lobe measuring 1.9 cm TV x 1.9 cm AP x 2.0 cm CC. There is prominent T2 FLAIR hyperintense vasogenic edema surrounding all the masses, greatest in the right cerebral hemisphere. These edema changes track down the right-sided cortical spinal tracts into the midbrain. There is mass effect with leftward midline shift of the septum pellucidum by 0.9 cm. Medial right uncal herniation also effaces the ambient cistern and contours the right middle cerebral peduncle. There is no hydrocephalus. There is no evidence for acute infarct or hemorrhage. There is generalized parenchymal volume loss. There are no extra-axial fluid collections. The craniocervical junction is preserved. The major intracranial flow-voids appear patent. Multifocal areas of marrow signal abnormality are also seen in the calvarium, skull base, and visualized upper cervical spine compatible with metastatic disease.IMPRESSION: Three enhancing supratentorial masses compatible with metastatic disease. Osseous metastatic disease also noted. Signed: Oc Roper MDReport Verified Date/Time: 10/31/2020 15:41:55 Reading Location: [address] Neuro Reading Room [facility] [id number] 13:14:00 Test Item Value Reference Range Interpretation Comments Potassium (test code = 3.9 meq/L 3.5-5.1 2823-3) BEAR (test code = BEAR) Child Welfare Caseworker ID - LYNN C Lab Interpretation (test Normal code = 82061-7) [facility]UM2021-[facility]-29 13:14:00 Test Item Value Reference Range Interpretation Comments MAGNESIUM (BEAKER) (test code = 2.0 mg/dL 1.6-2.6 627) Child Welfare Caseworker ID - LYNN [id number] 13:14:00 Test Item Value Reference Range Interpretation Comments POTASSIUM (BEAKER) (test code = 3.9 meq/L 3.5-5.1 379) Child Welfare Caseworker ID - LYNN CPOCT-GLUCOSE [id number] 11:56:00 Test Item Value Reference Range Interpretation Comments POC-GLUCOSE METER 77 mg/dL 70-110 : TESTED A T [facility] 6720 (BEAKER) (test code = [place], 1538) [address]: Child Welfare Caseworker/Techni isiah ID = [id number] for LEIJ A, AURA Vitamin B12 and [id number] 07:27:00 Test Item Value Reference Range Interpretation Comments Vitamin B12 (test 440 pg/mL 213-816 code = 2132-9) Folate (test code = 31.50 ng/mL See_Comment [Automa lana 2284-8) message] The system which generated this result transmitted reference range : >=7.00. The reference range was not used to interpret this result as normal/abnormal . BEAR (test code = BEAR) Child Welfare Caseworker ID - LESLEY Wang ID - LESLEY M Lab Interpretation Normal (test code = 72272-0) [facility] HospitalVITAMIN B12 AND [id number] 07:27:00 Test Item Value Reference Range Interpretation Comments VITAMIN B12 440 pg/mL 213-816 (BEAKER) (test code = 774) FOLATE (BEAKER) 31.50 ng/mL See_Comment [Automated message] (test code = 362) The system which generated this result transmitted ref erence range: >=7.00. The reference range was not used to interpr et this result as normal/abnormal . Child Welfare Caseworker ID - LESLEY Wang ID - LESLEY MTSH/Free T4 If [id number] 07:10:00 Test Item Value Reference Range Interpretation Comments TSH (test code = 1.168 See_Comment [Automated 78284-1) message] The system which generated this result transmit lana reference range : 0.350 - 4.940 uIU/mL. The reference range was not used to interpret this result as normal/abnormal . BEAR (test code = BEAR) Child Welfare Caseworker ID - LESLEY Baker Lab Interpretation Normal (test code = 24709-6) [facility] HospitalTSH/FREE T4 IF [id number] 07:10:00 Test Item Value Reference Range Interpretation Comments THYROID STIMULATING HORMONE 1.168 uIU/mL 0.350-4.940 (BEAKER) (test code = 772) Child Welfare Caseworker ID - LESLEY MInsert Arterial [id number] 06:40:18Dea Zheng NP 10/31/2020 6:42 AMInsert Arterial Line Date/Time: 10/31/2020 6:40 AMPerformed b y: Dea Zheng NPAuthorized by: Dea Zheng NP Consent: Verbal consent obtained. Written consent obtained.Consent given by: patientPatient understanding: patient states understanding of the procedure being performedPatient consent: the patient's understanding of the procedure matches consent givenProcedure consent: procedure consent matches procedure scheduledRelevant documents: relevant documents present and verifiedPatient identity confirmed: arm bandTime out: Immediately prior to procedure a "time out" was called to verify the correct patient, procedure, equipment, ict customer support officer and site/side marked as required.Preparation: Patient was prepped and draped in the usual sterile fashion.Indications: hemodynamic monitoringLocation: left radial Sedation:Patient sedated: no Lobo's test normal: yesNeedle gauge: 18Number of attempts: 1Post-procedure: dressing appliedCHI [facility] Cross Medical CenterThromboelastograph (TEG)2020-10-31 06:27:00 Test Item Value Reference Range Interpretation Comments TEG Activated Clotting 4.4 See_Comment [Aut omated message] Time (test code = The system which 95581-0) generated this result transmitted ref erence range: 4.0 - 7. 0 minutes. The reference range was not used to int erpret this result as normal/abnormal . TEG Fibrinogen Activity 73.4 See_Comment H [Au tomated message] (test code = 17675-0) The sy stem which generated this result transmitted ref erence range: 61.0 - 7 3.0 degrees. The reference range was not used to int erpret this result as normal/abnormal . TEG Platelet Aggregation 66.7 See_Comment H [A utomated message] (test code = 24632-1) The sy stem which generated this result transmitted ref erence range: 55.0 - 6 5.0 MM. The referen ce range was not u sed to interpret this result as normal/abnor mal. TEG Fibrinolysis (test 0.3 % 0-5 code = 52178-1) TEG-H Activated Clotting 4.7 See_Comment [A utomated message] Time (test code = 1411) The system which generated this result transmitted ref erence range: 4.0 - 7. 0 minutes. The reference range was not used to int erpret this result as normal/abnormal . TEG-H Fibrinogen 69.9 See_Comment [Automated message] Activity (test code = The sy stem which 1412) generated this result transmitted ref erence range: 61.0 - 7 3.0 degrees. The reference range was not used to int erpret this result as normal/abnormal . TEG-H Platelet 64.8 See_Comment [Automated m essage] Aggregation (test code = The system which 1413) generated this result transmitted ref erence range: 55.0 - 6 5.0 MM. The referen ce range was not u sed to interpret this result as normal/abnor mal. TEG-H Fibrinolysis (test 0.2 % 0-5 code = 1414) Lab Interpretation (test Abnormal code = 18931-6) [facility] HospitalTHROMBOELASTOGRAPH (TEG)2020-10-31 06:27:00 Test Item Value Reference Range Interpretation Comments TEG ACTIVATED CLOTTING TIME 4.4 minutes 4.0-7.0 (BEAKER) (test code = 1407) TEG FIBRINOGEN ACTIVITY (BEAKER) 73.4 degrees 61.0-73.0 H (test code = 1408) TEG PLT. AGGREGATION (BEAKER) 66.7 MM 55.0-65.0 H (test code = 1409) TEG FIBRINOLYSIS (BEAKER) (test 0.3 % 0.0-5.0 code = 1410) T[facility] ACTIVATED CLOTTING TIME 4.7 minutes 4.0-7.0 (BEAKER) (test code = 1411) [facility] FIBRINOGEN ACTIVITY (BEAKER) 69.9 degrees 61.0-73.0 (test code = 1412) T[facility] PLT. AGGREGATION (BEAKER) 64.8 MM 55.0-65.0 (test code = 1413) [facility] FIBRINOLYSIS (BEAKER) (test 0.2 % 0.0-5.0 code = 1414) Lipid [id number] 06:02:00 Test Item Value Reference Range Interpretation Comments Triglycerides (test 78 mg/dL code = 2571-8) Cholesterol (test code 167 mg/dL = 2093-3) HDL (test code = 52 mg/dL 5-9) LDL Calculated (test 99 mg/dL code = 31662-0) BEAR (test code = BEAR) Triglyceride Reference Range: Low Risk <150 Borderline 150-199 High Risk 200-499 Very High Risk >=500 Cholesterol Reference Range: Low Risk <200 Borderline 200-239 High Risk >240 HDL Cholesterol Reference Range: Low Risk >=60 High Risk <40 LDL Cholesterol Reference Range: Optimal <100 Near Optimal 100-129 Borderline 130-159 High 160-189 Very High >=190 Child Welfare Caseworker ID - MARVA Aguila [facility] CenterMAG[facility]UM2021-[facility]-29 06:02:00 Test Item Value Reference Range Interpretation Comments MAGNESIUM (BEAKER) (test code = 2.1 mg/dL 1.6-2.6 627) Child Welfare Caseworker ID - MARVA [id number] 06:02:00 Test Item Value Reference Range Interpretation Comments PHOSPHORUS (BEAKER) (test code = 3.6 mg/dL 2.3-4.7 604) Child Welfare Caseworker ID - MARVA LLIPID [id number] 06:02:00 Test Item Value Reference Range Interpretation Comments TRIGLYCERIDES (BEAKER) (test code = 78 mg/dL 540) CHOLESTEROL (BEAKER) (test code = 167 mg/dL 631) HDL CHOLESTEROL (BEAKER) (test code 52 mg/dL = 976) LDL CHOLESTEROL CALCULATED (BEAKER) 99 mg/dL (test code = 633) Triglyceride Reference Range: Low Risk <150 Borderline 150-199 High Risk 200-499 Very High Risk >=500Cholesterol Reference Range: Low Risk <200 Borderline 200-239 High Risk >240HDL Cholesterol Reference Range: Low Risk >=60 High Risk <40LDL Cholesterol Reference Range: Optimal <100 Near Optimal 100-129 Borderline 130-159 High 160-189 Very High >=190 Child Welfare Caseworker ID - MARVALCOMPREHENSIVE METABOLIC [id number] 06:02:00 Test Item Value Reference Range Interpretation Comments TOTAL PROTEIN 7.1 gm/dL 6.0-8.3 (BEAKER) (test code = 770) ALBUMIN (BEAKER) 4.0 g/dL 3.5-5.0 (test code = 1145) ALKALINE PHOSPHATASE 73 U/L 40-150 (BEAKER) (test code = 346) BILIRUBIN TOTAL 1.4 mg/dL 0.2-1.2 H (BEAKER) (test code = 377) SODIUM (BEAKER) (test 136 meq/L 136-145 code = 381) POTASSIUM (BEAKER) 3.8 meq/L 3.5-5.1 (test code = 379) CHLORIDE (BEAKER) 102 meq/L 98-107 (test code = 382) CO2 (BEAKER) (test 24 meq/L 22-29 code = 355) BLOOD UREA NITROGEN 26 mg/dL 7-21 H (BEAKER) (test code = 354) CREATININE (BEAKER) 0.78 mg/dL 0.57-1.25 (test code = 358) GLUCOSE RANDOM 116 mg/dL 70-105 H (BEAKER) (test code = 652) CALCIUM (BEAKER) 9.4 mg/dL 8.4-10.2 (test code = 697) AST (SGOT) (BEAKER) 53 U/L 5-34 H (test code = 353) ALT (SGPT) (BEAKER) 24 U/L 6-55 (test code = 347) EGFR (BEAKER) (test 118 ESTIMATE D GFR IS code = 1092) mL/min/1.73 sq NOT ACCURA TE m CREATININE CLEARANCE IN PREDICTING GLOMERULAR FILTRATION RATE . ESTIMATED GFR I S NOT APPLICABLE FOR DIALYSIS PATIEN TS. Child Welfare Caseworker ID - PIAYA LPT/JEYR2350-66-75 05:57:00 Test Item Value Reference Range Interpretation Comments PROTIME (BEAKER) (test 14.1 seconds 11.9-14.2 code = 759) INR (BEAKER) (test 1.12 See_Comment [Automat ed code = 370) message] The sy stem which generated this result transmitted reference range : <=5.90. The reference range was not used to interpret this result as normal/abnormal . PARTIAL THROMBOPLASTIN 30.4 seconds 22.5-36.0 TIME (BEAKER) (test code = 760) Effective 12/31/2018: PT Reference Range ChangeNew: 11.9-14.2 Previous: 11.7- 14.7RECOMMENDED COUMADIN/WARFARIN INR THERAPY RANGESSTANDARD DOSE: 2.0-3.0 Includes: PROPHYLAXIS for venous thrombosis, systemic embolization; TREATMENT for venous thrombosis and/or pulmonary embolus.HIGH RISK: Target INR is2.5-3.5 for patients wiht mechanical heart valves.CBC W/PLT COUNT & AUTO [id number] 05:37:00 Test Item Value Reference Range Interpretation Comments WHITE BLOOD CELL COUNT (BEAKER) 4.7 K/ L 3.5-10.5 (test code = 775) RED BLOOD CELL COUNT (BEAKER) 3.38 M/ L 4.63-6.08 L (test code = 761) HEMOGLOBIN (BEAKER) (test code = 11.3 GM/DL 13.7-17.5 L 410) HEMATOCRIT (BEAKER) (test code = 33.2 % 40.1-51.0 L 411) MEAN CORPUSCULAR VOLUME (BEAKER) 98.2 fL 79.0-92.2 H (test code = 753) MEAN CORPUSCULAR HEMOGLOBIN 33.4 pg 25.7-32.2 H (BEAKER) (test code = 751) MEAN CORPUSCULAR HEMOGLOBIN CONC 34.0 GM/DL 32.3-36.5 (BEAKER) (test code = 752) RED CELL DISTRIBUTION WIDTH 13.4 % 11.6-14.4 (BEAKER) (test code = 412) PLATELET COUNT (BEAKER) (test code 84 K/CU MM 150-450 L = 756) MEAN PLATELET VOLUME (BEAKER) 11.4 fL 9.4-12.4 (test code = 754) NUCLEATED RED BLOOD CELLS (BEAKER) 0 /100 WBC 0-0 (test code = 413) NEUTROPHILS RELATIVE PERCENT 71 % (BEAKER) (test code = 429) LYMPHOCYTES RELATIVE PERCENT 12 % (BEAKER) (test code = 430) MONOCYTES RELATIVE PERCENT 14 % (BEAKER) (test code = 431) EOSINOPHILS RELATIVE PERCENT 1 % (BEAKER) (test code = 432) BASOPHILS RELATIVE PERCENT 1 % (BEAKER) (test code = 437) NEUTROPHILS ABSOLUTE COUNT 3.30 K/ L 1.78-5.38 (BEAKER) (test code = 670) LYMPHOCYTES ABSOLUTE COUNT 0.58 K/ L 1.32-3.57 L (BEAKER) (test code = 414) MONOCYTES ABSOLUTE COUNT (BEAKER) 0.67 K/ L 0.30-0.82 (test code = 415) EOSINOPHILS ABSOLUTE COUNT 0.05 K/ L 0.04-0.54 (BEAKER) (test code = 416) BASOPHILS ABSOLUTE COUNT (BEAKER) 0.03 K/ L 0.01-0.08 (test code = 417) IMMATURE GRANULOCYTES-RELATIVE 1 % 0-1 PERCENT (BEAKER) (test code = 2801) SARS-COV2/RT-PCR ([facility])2020-02-13 11:36:00 Test Item Value Reference Range Interpretation Comments SARS-COV2/RT-PCR (test Not Detected Not Detected, Negative code = 5734888) SARS-COV-2 PERFORMING LAB [facility] (test code = 6820067) Negative results do not preclude SARS-CoV-2 infection [...] of the Act.Fact Sheet for Healthcare Pro viders:https://www.[employer]/Documents/Xpert%20Xpress%20SARS%20CoV-2/Fact%20Sh eets/302-3802%96AKTM-UVX-9%20HEALTHCARE%20PROVIDERS%20FACT%20SHEET.pdfFact Sheet for Healthcare Patients:https://www.[employer]/Documents/Xpert%20Xpress%20SARS%20CoV-2/Fact%20Sheets/3023801%20SARS-COV -2%20PATIENT%20FACT%20SHEET.pdfPerforming Laboratory:[facility], [place] [address]Gmtdzy Bprj0733-11-03 10:48:00 Test Item Value Reference Range Interpretation Comments Case Report (test code Surgical Pathology = 104) Report Case: [id number] Authorizing Provider: David Alfred, Collected: 01/17/2020 05:03 PM Ordering Location: [address] Received: 01/18/2020 09:09 AM Service Pathologist: Wayne Mcadams MD Specimen: Biopsy, Gastric, Random gastric bx ADDENDUM (test code = [id number] 3381) BzWSUxp6seWIHuoVAsFjYs MzNcZnRuYmpcdWMxXGRlZm Xgb0cnb366lLHey1wmUJAz BfA2iLNzKXXdwWPnQ358z3 bhh0lofnKbwOC3JRIhNFR6 CHbpgwOdfiD8RNujtPLnBe A7XDtxghCrDWavpqYbhqZg Bcm1JQJoO487XOV4bBzhh6 rsLHS0ITZiFYQbTtMtVg5r lMKzQ780JADxPGRQTHHjtB j8XOCqudPvvpJnyNJUw892 I225a0fhTKQexjSseWcElq fxt1kpE038TTCnbVEhkmOg ViAjIEMxsGHzqAC2QEIcIH 4bdbyoIJsbGVpaDKIqwqX5 LBAgxGNsW5DxUOQpZY6aqr hkPWP2NQysGSLhKMB5MgMz JSFko0Tpmyz8ZbKbpw4bke 68VZA8g9NxtDwbMFM5FKZ9 RqMyBh4bpYJgFXMuPN2zXq UcnQQqFFWndg52sCbjYQws bjYloN0jTvQjCCKuoKFvUU YaXQ0sxOGqJRUjaI4sghxn XHBnYnJkcmhlYWRccGdicm ZhSt8pvGrsFXL3UBcrG4qf eV0wPhR8WIdsD7nhkG8mLY y0OLgoqSC6QRWblZ8wNI0o rrlmm7qzMQtgRTfjHYMacd V4yiU7KCSshGHyQ6BzfE1h IPIaMT5mqnjnk4kiVQR1CN mbTESeMOL3TuIeXOWgg3Mg smq1YlRro8IxwTWfPDsxA6 2wz688LCZkgrIcK3cwfHOf ctwjrUAhnvxsCUllqiX1GQ FsXHBsYWluXGYwXGZzMjBc bGFuZzEwMzNcaGljaFxmMF dlQyVkMXWsLHkiJ5omTrAe NaTkGVHNpW62ir1tqWYsjz Ghc1MtsVZeuVMzFkYvoXAk RNCdkyDvll8fXIMieiClfY 3hlyHKZBDratRLM0RISVqO PS1frOWwwH== DIAGNOSIS (test code = [id number] 3220) FuZzEwMzNcZnRuYmpcdWMx YLzkrsQqBCblv1MuU0GvVs AwMFxhbnNpXGRlZmxhbmcx AJFtUUP7suAbTKBeDPecQP KbIKpwYg2nnZMhuCsuKzAp SQEnm2gstfHBvmlsyRc3e4 kfOECpDxI7eTEuKIqcO9tu knFyjQNpZHFjUOq3wX28PQ YosQ5odXJeQRkdqmQbMnZ0 BBliFOTyBiA9MLIrnLFpCF ByZ2zsZEAvSWsqJJPgNMaq gVJeARM6lSgfr5M9fYFykL CkwUeyAcFcPdAmAVSDl8Xb LGb8yWguJ2UnEVYhDyA6lH QgUGFyYWdyYXBoIEZvbnQ7 zP16HEgivxO5tDOuu1Vzs0 7eu714eF7ngKEdKAL6ESUj FLJpiCAeNHRiWVM9OOBiqT JsW9w3EzOweALfP1U1RlCl mXFqL2G8ZjPjhHBkO5M5Zj MobJDlIWHplWXjKe8azTMb hSAqcg5mmd08RLO3e2OljX dbFTN1JRX9OdOnZv8vlJDe GVAtOV8kAkYumRQrDCNuyj 44iGqtHItczrKdpI8yTpAb GFCvlFLuXCQbBE6auGXrGQ UpxI5qrimlCPWqShWlcsyd HBMviBommxYfPe4fuBkyLG G7YWmrG9sgpS3yRgF6ETiz D5pukQ6fJRp8SVrnrLR7PL CzxI3jRN6ejyajl8taPiDh SQ0vaekqr5uaCiTaST4zlf t7l5uiAaRdCD2gtvuqx4sc NzIwXGhlYWRlcnkwXGZvb3 VzxigfFBEra8SiH1RqpTjm A26udXzwO00bHOYtsXqjvX 0scHuxhX8vTpHbZuOfZQbg bFxwbGFpblxmMVxmczIwXG tmvxfrUJOwNNllX3caBlRp FEGntBmpBGwwz9IxDQQxKW ZzMjAgUEFSVCBBIFJBTkRP LOCLCVXGRrtNPZOVT8VCBA pccGFyIEFOVFJBTCBBTkQg N5vECyCNSiIUBYJCN7XdW8 yJMCZDS6KPQeOqK9gZS95K QyBHQVNUUklUSVMuXHBhci VVSLiLGPnFETKAZ9CpFT5F AZBJEP3PKRVBENDWIRhKU4 cHWBDOJZAGAOMLGQLkND2I IElOVkFTSVZFIENBUkNJTk 8AMS3prCJwWXaDOaIZTS3s M2DCTrEKDZSFESlTKUTAWu CWKKzDA14ZYMNUACLfLRSd TkVHQVRJVkUuXHBhciBJTU 6YMw0ZMNCNCmRIH1VlATSH SUNPQkFDVEVSIElTIFBFTk RJTkcsIEFEREVORFVNIFJF HJ4IJVZUJlUPG1nAM6toML Tvoj96DSQ0MrLvy5P5DSD5 BWOwTNEzy3kkZRRpfJSqJc EwMzNcZnRuYmpcdWMxXGRl NtTty3xol418uQHra4jpRW UgOmC8lIBfHOYeqWMsM500 AORuDZsfy0jic1EbYSWlwG Pan5N1GVRAtppiqDb6tZqo X16fs0G2KasvS7zzOEJtJA AnT7ZaJP2qKIRsIwy5IFH0 MVR4QBUdMEVbI2BxJQ9iVQ GeiJGpIXw8v9muoDopZCQy XZW5x5axYMltccSjOH1eks 5mkEk2j2wkivEeBQHyAPCz eOSMHBTiQ1JueLzrWp0imH q8oQytPanoANR3Yen9PX9r ru59nvp8pNeiRTBrwpeaCg R4CAqvHPPctfxvIJj7JQlb QEYksHF9MCUljLYsS4XnNI CfFL2lqgw4VON0BXprOUAo SbK6RZTczYKeMBPjsEcsJD onm927QBG4EmNcRV7oO7Ph v0U7nI9xdERkIEHfwILjOw YvIXLpvb5hwAKvXCvnh4Hb CRG1okC1nKCxcZWiTUJqNj Q8YLnbNX4ibv98LHNlRQN0 vx9tvQAinYmtriIhzVNiCU oxM7QrQIWou134PZSzZ1Tz GHGbx6I2rsDyLhAsECEufV O7yuA8BJPbPJ4ygllcy4eu JGooTPvjIGMnpgK2yaN0DY RauJQcN8SucW1rRTWuEA5r quncb3ftWRO5MZvvOPPoVM F8DqQiWSSzv2Fwgjx4FmDb f4LcbQBpIPgxG05ze545MC KqpdWuR1ujrMZmqcupkGZj xbyjTUresoQ1IXYzCNrcry gsZMHzUUopF8qtXhQbRVOk dRghVIvhq8VuKDOfHNLzDw XsmVCcIINdNvx5CYBuvPIo AGPoEkXpE5zakldcKzCUWM Yjf7ylK8becYYRiUEhR9Ft UGhvbmUgTGluZTogODMyLT Z3BW61NEbuMGOzfw62 CPT Code(s) (test code n2hcuTJfSNOdpAJuMmAjAV = 3358) WiQRZfd0pxJVSgsAGjRgOw MzNcZnRuYmpcdWMxXGRlZm Hco5dlz797yDXgt5xaWIWl HjR4kIQiWEOrdJMoO282n2 xdb3qvzlNguYX8ENBnBGV5 ASwqkfAhrwO8ORnyhDYyUn V8OFweqxChDTmjtiEvhhWs Ryi0TGAhC230GIN1rYzfi4 jcAGA8NPMfZXAnHcNbLa9k iFTwJ426YDNeGEDEODScpM d3UMUkgaHdcpDshRSUg297 M765g3wxQAYxuuRkzSxFap uaz9ysN892HZMjvRUkmhZv GnPkMOWfaNKcxNP5DFHeZX 1dpikwYzLyYZ4lqhggDhWi PT4hgob8IzVfGF6fpavzUa YsQSzhJKYtdrmfXXYxd4Le jyapRJ8gY3Nds5R4yX9syO IhQLUxiKUcNoVlHDAlda0l xHPbWDpnj9EoYYE4nhF9nH QnqPSdBNDiIA69Bvndc4Wj LcykUHW2MDEyvpAef2Tbb0 ycFyXuivNdO7ndK0TtYFFj BYZhQGNwMfAmmkSrs7Ztn2 UbgVKudQj3q8shMGGhPMJu jHxgq9iyCRV1VQPrS2K4wE Fhx2yiCThySZCirFY1oizi KWgrOGQjmfQ3rlktLLxsWW LkeGV5dqtlJWlfYPYaGaE5 moqiZZqyHOFgSYV8AHxla7 01WZG8RWclMnviYBtjHXSf bmNvbnRccGduZGVjXHBsYW luXHBsYWluXGYwXGZzMjRc vQlagGoalX9rIcSnFfNdWI baOS6cRDVrI7fksUUkPNAp PHJxF0jnLbDcsG0agCjhRN lehkUoLBm9AyO7QYS4TGLq MiwgODgzNDJccGFyfQ== CLINICAL HISTORY (test n9jhlOFxVKKtzFUiTvAiPT code = 3358) KcOOLce0ptKQJtbNLjKlTb MzNcZnRuYmpcdWMxXGRlZm Gwi3mmi083uTJri8duTOKi JhP3kVSpTFAjjHJbF765ZS CaHHfzv8oip7YoHTNcgCMw v0F8CJXQhbklhZd2jHwuE8 7wo1W8UnjgZ7rtOLMnKDYs F8OyEP8xUUGgSzs1TOS1WJ N9LJUuDDEkP2CxDA0cDURz fGSdRQz2c2qatPsxVHAdUN E1m6lvVNbuexXvEQ4eff3p gYg5p9bvicDaBKHgWYBbtR ZIMBOqO2FhbKpfFz3mbTe1 yImaJkfmVIL1Fyp0ZF6dzf 73geh7oGrfKLXajaxmSzC8 EGezMHGftkfzZSk0FViyDO JnbDcyMFxtYXJncjcyMFxt YXJndDcyMFxtYXJnYjcyMF csQPWlPZI2OJaxt689PTG9 BFvrr0hze3nefOXeOkg2MT BsEmUwEjitNNjpz6Ikq8qe ZRVgeh9iWRX5yHSglQqdk5 Z4yWWvYTXfhAXfgsUaEZWz OgZ2DAebRH0hkp45VANrBX K2kw1evAGluYkhocTmzGKw FWcuR0EiSNVyq967YOMdG7 VtDOQln0I2xfNgUnUeKWAy kJL3yoA9ITJhKPa9sQMtee T4mnJxyLTlN6fpvN21EbEc qKZyW8FshR32TyPsrOYxX0 FvtI08GwIjzJWhU7ZkaJ47 EwYxwHJdLRCqwTIkOd4wtR JqfOZpg5BrtBNyPXwoK85w f998ISZgvrMoX5tyoOYypv nphLFycodaALepxwI2KMi5 cnBhclxxbFxwbGFpblxmMV xmczIwXGxhbmcxMDMzXGhp F1mvTiBoSQUnoQwdFUadi0 IoEKCsIZJmFzGgE9edRhwU RURccGFyfQ== SPECIMEN SOURCE (test w5mtvWPoIVCdfRNlYqCfIL code = 3377) EaLBYmy0jmRYTpgUSnHqKd MzNcZnRuYmpcdWMxXGRlZm Eud8tvk844cKCwa3ajKDJq ZhC4vKXgWWHgnILrY104y4 fcl7wmuuXfjXR7LUYbXPR5 TWzfutZeniW4SXlgrZBfUt U1COvlzaBxQAuoaqWfiiGk Fkg0RTYaT228QQE7oIeba4 blZHX0VWBoXMDiRcDtJf5i oKJeP265SUZrZZPODROvoH t8YHUapyNwyhYgvPQDp154 V636f2oxXQXdbwUpiFjBrh rcq6eiD438MIKvaWAneyNv QsGxFAYziDQnaMX9WFTwNR 1ylccuRxDrRU4vmdpgZfBh IH6vouq9JmKrTS8hafkyCw HuIPoxILGrmkbiDQQwv9Js srsjCP6zH5Oap7U7dJ1ktI IsVLPaxUJtJpMiOQWbpy1o pOOkXQzpw8AdUUH8rqV4uP SneVShTDNiMX30Hllzk6Yr RjeoUGI9TVMubiFbz4Nrc8 uoXsUvwzIfM4qjS9MfJCHx AKTxGYWcRmTgynBig7Noy9 UikOGldTy8v4apIOKhIADx mFnms1dsGCC3QEOmS8M2zO Krq0cxJFkaEHQqgMO9pgza LQgoMPPfqsL2shpsOIpdED WiiWZ0rgezTPeqACJoIfC8 itgkHArsVVZyKCA5HClqg6 63IZJ9KVofAynjWMnhMPGp bmNvbnRccGduZGVjXHBsYW luXHBsYWluXGYwXGZzMjRc iLwfaGyyzX5cJmTvTdIaWE joDE2bILWaO9uwaWRtPHZy EDSbL9dmPxEcbT5ylMacTW phrtPxHTrve7FhoTVsXuzu nET7ZDFpfc1= GROSS DESCRIPTION (test q0obmFMuLTRhsUKmGuWiPK code = 3366) CzZCLcb6rvGZFbcDTqSpMk MzNcZnRuYmpcdWMxXGRlZm Aqd1ysk741eBZpe3pbJAUd HuF6hFZkAKLbsYJuG315a8 qdv8czqhQfnJS3KDOmZZV0 ZZcausJjexR1ELzzsFOiVw R1WNqfbcCnCAocpwQidtEd Yqs5RTBaR501AIX6eSdkk1 gcSIH5TITgHHSoHkLcSq8l mWXhN385KRReMFMEYJGfrA t0POUbyjYwplPuoYUFx048 N693m9xuRWSapgYbrDrRws agx4aeX413RCIyiOYcknHj YbHmGCVhjISljBW6JZVhLC 9rfameGbVmPG5kdkysDdKn GY3lgzs4DiNpCS9rmadqUb GyPYdcKLLnnldlFXCfk7Mg ocojPC0tE1Eke7O4vU9avP JvWAJboTQtTfGrKJTpfw3x rFDyQJafc4XjEXA6kpF8nT RhyMZqEENeIW28Jquae3Kx ArgxMSC7OMSxbeBde2Sln0 iyYxNbypZeU5paP1IbRSMz SVSqLDIxDzKgchIhi1Mbm2 QbsSLbzFt5y7uqOFIhXGIb iChnu1wzKBB1KWTuU5Q6uC Dcd9cmIPgzMWUbxUR0mbop FCsnTMQdbkU4itopMWbwJV ZblTI6eamwRDkmLYLmLyK9 dawmEPigFKYtPJT0PNisp6 53ZQR8VShlZltwURurJGBk bmNvbnRccGduZGVjXHBsYW luXHBsYWluXGYwXGZzMjRc vAwdgRkjnQ6dJiScGvWdFR plWY6qNEUuX8ophPQaGACc DNWfD3ztPnJfnF0vaTnyWY sntxRtGYAeO7KymqHsRZxg QFKozo4hyWjlNXkyWjCyRS Yvq5m7cCJ1iRJasKL3aLCs vBdjAY5jnHWsYLRnE4Ibm1 gqeqAzwJ0mOQQrQV8lZAVw SEP1pvvcIPQzv0SimWXfAD JlIDMgdGFuLXBpbmsgdGlz j7KxUULbKTquKY88ddZeNH VffPWlotvhtSEbkS3kAC2r KCHvJSzsJFgbVOW7UPN3PU RshFAcc6txurM1vUdxhJBm yeIoJsrroMPyWOIqEQ7kYM U8La3rcAVgTTNvqaI3b7Tu IGluIEExLlxwYXJccGFyIF KhsVLeSQJyJ8OxuVjskuwg MAZaBQERM3GrC69pnJYdwZ == MICROSCOPIC DESCRIPTION d8jjgZPzDFDpaBZaVyRzOH (test code = 3371) XmOITdh6wtJTPlhTLgQxUm MzNcZnRuYmpcdWMxXGRlZm Lyg8lsq565vABia2rlYBNw RgU7vKYiPUNrqEVxT844p6 hpd5taukBreFJ1PZGiDNR7 DRmxpiMjglA6MWldlSTmZs N0YXirozExURysduUogjNt Raw3TNGzG248VIO4iKugc6 ogAMS9AGUqENJhFeOkVp7y mBNbI072KZTvVNXJLADevZ x0PFLeghTqhxTecWKDc690 J349p3eoCIZzgbHauHwHwe cna4dfF367SPBhdSGnkhUq AqRgCXQcbWGzfDM6QQQgYP 9huuxvHsLiTC1tzkrnKiAo ES9vxwy0LeMgLO2oyzgfTy NnRBojYBHhwbczCISzc3Uu urfhMB7sG1Bmz1O4eZ0nlR YoNTWlbEDaJhFtSMRbjt6p xKYfVLxtb6RmWDT2njP8uJ ZqsNFkUNItEY87Jntot2Yj AhouQOF7EZVqvdClx5Ako7 lcPoIlqcLoE8dcS2EuEOWf XNGiMMCzEkSrkoPbn2Voi6 MpeROqlEf5j9yrLUDdGDJs eOrvc5noQUS3OYPtW6M8sH Lxs0itQFmoWSJpjMK0liwm IPdyRTQlytL9vtgsDWxuZX UroCY3zicfRXihDPTpSaB2 ebfvOOhaGBGmFAI9IDxbz8 45XVY6ZUncTodxKHbmFNBk bmNvbnRccGduZGVjXHBsYW luXHBsYWluXGYwXGZzMjRc gAaxpZqpxZ1yLbHiRnLwCA qtUS8nUXVcU2hzwGVqAGTh JHBpZ4hlQsDklA9kcJtoMM whshNpYMZWLlFFYy0BBQ3s cGFyfQ== SPECIAL STUDIES (test h4icpRXsJPLopWQzJhIpMY code = 3376) IkEYRbu1qgGJXdhJBgTzWz MzNcZnRuYmpcdWMxXGRlZm Sfb8plb196nMVql4prKAUh DyN6yPDtYYUibISfQ393VD CqLPzbo2sdi2AdWQNtmJFz h8R3HDAQXAkuXjVvO894YG QzQJwjt9rvh4DqOXPitXQk q2W4QXFVvehtrJf3mKcaT0 4bh5B1LfswX4enZXPjKBQp X2AxMI9gPTMzYod7HFQ5SA E9QNXyMNCgM2WiUR9rFUCo hXPdZSe2g6xnhGsvMVHwQV Q8u0gsWGkynsZ4GJ4fjw3r jFe4c3egrbGlDRZbOIGlmM KDWJLsB1RqxYgnPe8gyTg4 t3liQszemrX3qHIkPhUoAr MyMFxsaTBccmkwIENvUGF0 nYWMLKj8Y927n6eyIWKpdv QxqMwBvmzte6hdJ198HHAz cGVydzEyMjQwXHBhcGVyaD Q8PXTpXG4hvmlnYvSvTX5p aavbGaKjAL2hcjv4MdEiJO 1hcmdiNzIwXGhlYWRlcnkw PBJff0HmjgysTY6eP6Omt0 L9yZ4czVKrHNWntZBaIvTr CZAkbb4wqTBfSHpbSMX2SO HseoXmq6Xoh7tmZqFsyvCf F2dxN3FtYFJrSANjCGPwGm RdxiWwp6Dyn4YgrHPivRv8 k4nlLOHxXRJfmCwfm9xdMV K7FUKiD1Q7rSSne0arTQuf DKAdaIC5jkjpZRcmUZSyyy F5edluXFsdMJWwxSP8ikns MCfdVRCzTkL6wokyGRsqDI OyGNZ3INezn091LMK8ZNli YmtwYWdlXHBnbmNvbnRccG duZGVjXHBsYWluXHBsYWlu XGYwXGZzMjRccWxccGxhaW 2rGzWpVkHnOjqsFU7aBTHh R5bbhBJcNVNwBLHmN7nrVg QgsA0wlEfzRBezNnUcWpAc UjBMzDXvfZ22MDMrbeI9DF Rub18jj3AznItivgQqSXJv NYwgA9s8PQZoHPBtOQT1o5 Clz8AmzW8urP1pzQyvhT5c oQMmpZS3yovbq5Bsl5RfG9 lhbCBzdGFpbnMuXHBsYWlu XGYxXGZzMjJcbGFuZzEwMz NcaGljaFxmMVxkYmNoXGYx LEwyT8zyScMqL7EdXKRgNc IokBIfQ9yqpCXwPRSwCVrk XGYxXGZzMjJcbGFuZzEwMz NcaGljaFxmMVxkYmNoXGYx PTeuH7cfGrGqT2RfTSWrHe VdTfgKA7piOSZtQCuQPaSN DZ7rM9OTKkMMZTYZXOgEB8 6QCOQVFZHzOA0NKA0NQ4EH WI4yPEWyAUyfXJWbFQRjGl JcbGFuZzEwMzNcaGljaFxm MGeqKwVhLRHiJVifP9ajJq KbB3DtSJMeDkYgdHMtO8hi cGFyXHBsYWluXGYxXGZzMj JcbGFuZzEwMzNcaGljaFxm UHudGtPwYXNmXEgjV2tkEv QuO6FzTFQiUnHtW85fuKKf bCBTbGlkZXMgRXhhbWluZW Q0JJFHjx4cj7GkARQtmt94 wzCgu3NaaXy2SRYim166vk 7eahX0KZLdEBP9FTf7THVr PXVoeG8tUpP4ySWtSTGkGQ G6URJ4XEPwg6F5WH0lVMJi LVSsNIInqiWxd2tqw9hoAO FnMCL6yiSoeG0hZ0JbGNCj o1GpyHyjDWVjnNxtbmVyUB ZhjIZeZAGznC38AXWacYJw sJDjQWBvPVY8QToduB9dTr VNxpTnce6cdETpw6JuhBa7 ZSBhbmQgbmVnYXRpdmUgY2 9jqPWedPMyn6ljtjWopvUd yHWhoGFrHATkOVE7UWq9HT RlZFxwbGFpblxmMVxmczIy TSjcogljBDOvOXwxS8ndXm JkZIAjuFppYAajk1YzPVIg VGVhPxirwkIsCCw0gcHvRL BhclxwbGFpblxmMVxmczIy MVkrjevwDFTpHDsoK0ufMj MmBRUlaVdqGQanp6XrJMLa XGNmMlxmczIyICBccGxhaW 1gKsTwViKlHjibHZ5lTYSm V8jssPOaACUnPMShW8alEg YglI6mfAlpQIxzAkIgKsBx MlxsdHJjaFxwYXJccGxhaW 2rZwCxPjBqZxosRE5qMRBt A1cqwWRjLPXgXCMaQ6cgHx YkjS0vuBaqZZkfWyYoFpNp JwHSyI08qv8pdHU4l0IwWB 1ex4TeyKC7NLHtzcwuAKpf kOTyyNooGzM9UPDohZWcRh 8bsFAdBKM9AYSinMqsiiAO kD5xAAAlAZtbdHPugorcKZ xmczIyXGxhbmcxMDMzXGhp B4pnNxRrLBYqmFdrLIcfm3 NoXGYxXGNmMlxmczIyXHU4 GcG9KVdfKFWmtCuijM3oNw ArGwNrNrenRH5iXWLjV7gv gJOlWORlUVTpT8yoDfYteA 9jaFxmMVxjZjJcZnMyMiBz UZ8kXNfxZFiuA5AosCIpUV KEDAQfh7tdN8znYVLgr4Tb fH5otZP8mUWrQPSdqUB9RI YvVNO3TExwoJRvUCOpEGQi wNSouZZdQq8fuSIqS5QoL8 fqbaSxhKNasWU0zNUgSYge ttJfTQL8ZTSecB4nFF9qBL IrgDLcPN8gvGHeRCJqRUYk JWWlWFAur9KjWWObok98YP YjZpjgvClwZIRkQr5hAn5j WIEhmlHoGXD3AbHEDR3obj cgwVMxcYfgei4cOZwhDQXF MWEzNHOuZDG9ETLzmL1eZY S0uRV1SNT2F9vuP8poVRJg tbWrBP7kLZNyiABzbtTlZH eyHJ4ebVSmEIJjc5Tklefh WIErWIT7TKU4JDcwXBLxVB DdUn7nCUKdmA2lO7AvFNB7 vhNlw0RuVnLMzUJhpD15sF Wirz96VXPfVRKwJ7UuLBAe IGFzIGludmVzdGlnYXRpb2 1wxCJphlQuc0SnjlJyEOWp S2gfXHWgxUAjiFQbg7WurS 9xxMOrkeHbOWQ6nEAwZCSv eI8zSPRbqKtoQPPriX8dC8 GyHSrwYy3nWMPsvaviPT1l wk25ZC2zcdUsNM9mxcKvCA 20fjFyBpBwIEb8CTxCQLdX OXz9IDEfboPvmMFqvXQsKS XxoI5miFRkDc9iiJTkiIlh DSZwmFQaDKmbpDbzO3zbjc jsTGnhiIKgg5GwyC8qdGJ2 ORN3pJ4bIommqTIifwpbIz xmczIyXGxhbmcxMDMzXGhp K1anBeYhADAsoLatSvsrj2 NoXGYyXGZzMjJccGFyXHBh nkDzxJsmlY4jXjBmRoWwOZ lbkZNmpeybZsqwqdL8AGJb cn0= Gross assessment was [facility] performed at ([facility]ly [facility], = 2777) Department of Pathology, [address] [place] [address], Technical component was [facility] performed at ([facility], = 2778) Department of Pathology, [address] [place] [address], Professional component [facility] was performed at ([facility], code = 2779) Department of Pathology, [address] [place], [place] [address], [facility] [id number] 10:48:00Surgical Pathology Report Case: [id number] Authorizing Provider: David Alfred, Collected: 01/17/2020 05:03 PM OrderingLocation: [facility] Received: 01/18/2020 09:09 AM Service Pathologist: Wayne [...] REPORT TO FOLLOW.Signing Pathologist Direct Phone Line: [phone] signed by Wayne Mcadams MD on 01/18/2020 at 4:47 [id number], [id number] BLEEDGastric biopsyReceived in formalin labeled withthe patient's name, accession number and "gastric biopsy" are 3 fam-pink tissue fragments measuring up to 0.3 cm in greatest dimension which are filtered and submitted in toto in A1.MARYLIN Augustin ([facility])cmPERFORMED.The interpretation of this case included the use of immunohistochemistry or special stains.BLOCK A1- WARTHIN STARRY, HELICOBACTER IMMUNOSTAIN.Control Slides Examined: In-house known positive controls were evaluated along with the test tissue. These control slides run alongside of the patients sample show appropriate staining. Internal positive and negative controls when available are evaluated Immunohistochemistry technical testing was performed at [facility], Pathology Laboratory where it was developed [...] qualified to perform high complexity clinical laboratory testing.[facility], Department of Pathology, [address] [place] [address], [facility] of [facility]ology, [address] [place] [address], [facility], [facility] of [facility], [address] [place] [address], [place] [address], [id number] 04:55:00 Test Item Value Reference Range Interpretation Comments MAGNESIUM (BEAKER) (test code = 2.2 mg/dL 1.6-2.6 627) Child Welfare Caseworker ELVIRA JACOME WBASIC METABOLIC [id number] 04:55:00 Test Item Value Reference Range Interpretation [...] S NOT APPLICABLE FOR DIALYSIS PATIEN TS. Child Welfare Caseworker ID Jose JACOME WCBC W/PLT COUNT & AUTO [id number] 04:31:00 Test Item Value Reference Range Interpretation [...] H PERCENT (BEAKER) (test code = 2801) PROTHROMBIN TIME/[id number] 04:30:00 Test Item Value Reference Range Interpretation [...] for patients wiht mechanical heart valves.Prepare Leuko-Red [id number] 23:54:00 Test Item Value Reference Range Interpretation Comments CROSSMATCH (test code = 2264) COMPATIBLE Unit ABO (test code = B Pos [id number]) UNIT NUMBER (test code = [id number] 934-0) Status (test code = 2534891) TX_TIMEINCHART Blood Bank Product (test code RED BLOOD CELLS = 2263) PRODUCT CODE (test code = S4444K41 933-2) [facility] 05:53:00 Test Item Value Reference Range Interpretation Comments MAGNESIUM (BEAKER) (test code = 2.4 mg/dL 1.6-2.6 627) Child Welfare Caseworker ID - MARVA LBASIC METABOLIC [id number] 05:53:00 Test Item Value Reference Range Interpretation [...] S NOT APPLICABLE FOR DIALYSIS PATIEN TS. Child Welfare Caseworker ID - PIHUE LPROTHROMBIN TIME/[id number] 05:26:00 Test Item Value Reference Range Interpretation [...] mechanical heart valves.CBC W/PLT COUNT & AUTO [id number] 05:15:00 Test Item Value Reference Range Interpretation [...] = 2801) CBC W/PLT COUNT & AUTO [id number] 12:38:00 Test Item Value Reference Range Interpretation [...] (BEAKER) (test code = 2801) Hemoglobin and [id number] 05:57:00 Test Item Value Reference Range Interpretation Comments Hemoglobin (test code 6.2 See_Comment L [Auto mated = 786-4) message] The system which generated this result transmit lana reference range : 13.7 - 17.5 GM/ DL. The reference range was not u sed to interpret th is result as normal/abnormal . Hematocrit (test code 19.3 % 40.1-51 L = 4544-3) BEAR (test code = BEAR) Child Welfare Caseworker ID - [id number] Lab Interpretation Abnormal (test code = 17419-3) [facility] AND [id number] 05:57:00 Test Item Value Reference Range Interpretation Comments HEMOGLOBIN (BEAKER) (test code = 6.2 GM/DL 13.7-17.5 L 410) HEMATOCRIT (BEAKER) (test code = 19.3 % 40.1-51.0 L 411) Child Welfare Caseworker ID - [id number] B12 AND [id number] 05:35:00 Test Item Value Reference Range Interpretation Comments VITAMIN B12 (BEAKER) (test code = > pg/mL 213-816 H 774) FOLATE (BEAKER) (test code = 362) 14.20 ng/mL >=7.00 Child Welfare Caseworker ID - MARVA CBvbmfwdf5887-92-41 05:27:00 Test Item Value Reference Range Interpretation Comments Ferritin (test code = 947.60 ng/mL 5-275 H 2276-4) BEAR (test code = BEAR) Child Welfare Caseworker ID - MARVA L Lab Interpretation (test Abnormal code = 11625-5) [facility]ERR[facility]IN2020-06-14 05:27:00 Test Item Value Reference Range Interpretation Comments FERRITIN (BEAKER) (test code = 947.60 ng/mL 5.00-275.00 H 361) Child Welfare Caseworker ID - MARVA LHEMOGLOBIN AND [id number] 03:47:00 Test Item Value Reference Range Interpretation Comments HEMOGLOBIN (BEAKER) (test code = 5.3 GM/DL 13.7-17.5 LL 410) HEMATOCRIT (BEAKER) (test code = 16.1 % 40.1-51.0 L 411) Child Welfare Caseworker ID - MarizaPROTHROMBIN TIME/[id number] 03:38:00 Test Item Value Reference Range Interpretation [...] INR is2.5-3.5 for patients wiht mechanical heart valves.[id number] 02:11:00 Test Item Value Reference Range Interpretation Comments Haptoglobin (test code = 277 mg/dL 14-258 H 4542-7) BEAR (test code = BEAR) Child Welfare Caseworker ID - MARVA L Lab Interpretation (test Abnormal code = 91233-3) [facility]IN2020-06-14 02:11:00 Test Item Value Reference Range Interpretation Comments HAPTOGLOBIN (BEAKER) (test code = 277 mg/dL 14-258 H 366) Child Welfare Caseworker ID - MARVA Kurt, TIBC, % sat. (without ferritin)2020-01-17 02:10:00 Test Item Value Reference Range Interpretation Comments Iron (test code = 2498-4) 38.0 ug/dL 40-160 L TIBC (test code = 2500-7) 151 ug/dL 250-450 L Iron % Saturation (test 25 % 20-55 code = 2502-3) BEAR (test code = BEAR) Child Welfare Caseworker ELVIRA DURHAM L Lab Interpretation (test Abnormal code = 92161-7) [facility] Hospital[facility], TIBC, % SAT. (WITHOUT FERRITIN)2020-01-17 02:10:00 Test Item Value Reference Range Interpretation Comments IRON (BEAKER) (test code = 547) 38.0 ug/dL 40.0-160.0 L TOTAL IRON BINDING CAPACITY 151 ug/dL 250-450 L (BEAKER) (test code = 769) IRON % SATURATION (2) (BEAKER) 25 % 20-55 (test code = 2590) Child Welfare Caseworker ELVIRA KAPOORPiter, [id number] 02:00:00 Test Item Value Reference Range Interpretation Comments ABO Grouping (test code = 2588) B Rh Factor (test code = 2589) POS [facility] [id number] 01:50:00 Test Item Value Reference Range Interpretation [...] 697) EGFR (BEAKER) (test 76 mL/min/1.73 ESTIMA LANA GFR IS code = 1092) sq m NOT ACCURATE CREATININE CLEARANCE IN PREDICTING GLOMERULAR FILTRATION RATE . ESTIMATED GFR I S NOT APPLICABLE FOR DIALYSIS PATIEN TS. Child Welfare Caseworker ELVIRA DURHAM LHEPATIC FUNCTION [id number] 01:50:00 Test Item Value Reference Range Interpretation [...] (test code = 26 U/L 6-55 347) Child Welfare Caseworker ID - MARVA LLACTATE DEHYDROGENASE (LDH)2020-01-17 01:50:00 Test Item Value Reference Range Interpretation Comments LACTATE DEHYDROGENASE (BEAKER) (test 484 U/L 125-220 H code = 635) Child Welfare Caseworker ID - MARVA [id number] 01:50:00 Test Item Value Reference Range Interpretation Comments MAGNESIUM (BEAKER) (test code = 2.4 mg/dL 1.6-2.6 627) Child Welfare Caseworker ID - MARVA LSARS-COV2/RT-PCR ([facility])2020-01-17 01:38:00 Test Item Value Reference Range Interpretation Comments SARS-COV2/RT-PCR (test Not Detected Not Detected, Negative code = 0623762) SARS-COV-2 PERFORMING LAB [facility] (test code = 5637219) Negative results do not preclude SARS-CoV-2 infection [...] of the Act.Fact Sheet for Healthcare Pro viders:https://www.[employer]/Documents/Xpert%20Xpress%20SARS%20CoV-2/Fact%20Sh eets/302-3802%25PZWM-QGN-1%20HEALTHCARE%20PROVIDERS%20FACT%20SHEET.pdfFact Sheet for Healthcare Patients:https://www.[employer]/Documents/Xpert%20Xpress%20SARS%20CoV-2/Fact%20Sheets/302-3801%20SARS-COV -2%20PATIENT%20FACT%20SHEET.pdfPerforming Laboratory:[place] [address], [place] [address]QJ/[id number] 01:24:00 Test Item Value Reference Range Interpretation [...] is2.5-3.5 for patients wiht mechanical heart valves.Reticulocyte [id number] 01:20:00 Test Item Value Reference Range Interpretation Comments % Retic (test code = 4.9 % 0.5-1.8 H 44688-9) BEAR (test code = BEAR) Child Welfare Caseworker ID - [id number] Lab Interpretation (test Abnormal code = 74949-8) [facility] W/PLT COUNT & AUTO [id number] 01:20:00 Test Item Value Reference Range Interpretation [...] PERCENT (BEAKER) (test code = 2801) RETICULOCYTE [id number] 01:20:00 Test Item Value Reference Range Interpretation Comments RETICULOCYTE COUNT PCT (BEAKER) (test 4.9 % 0.5-1.8 H code = 575) Child Welfare Caseworker ID - [id number]
[2020-11-20] MEDS ORDERED: ACETAMINOPHEN 500 MG TAB ONE (23:12)
[2020-11-20 23:22] LABS: Hematocrit 22.9 % (39.6-49.0); MPV 10.8 fL (7.6-11.3)
[2020-11-20] MEDS ORDERED: NA CHLORIDE 0.9% 2,000 ML ONE (23:24)
[2020-11-20 23:26] LABS: Protime INR 1.4
[2020-11-20 23:38] LABS: ALT/SGPT 45 U/L (12-78); AST/SGOT 19 U/L (15-37); Albumin 2.6 g/dL (3.4-5.0); Alkaline Phosphatase 53 U/L (45-117); Amylase 34 U/L (25-115); BUN Blood Urea Nitrogen 30 mg/dL (7-18); Bicarbonate 27 mmol/L (21-32); Bilirubin Direct 0.4 mg/dL (0-0.2); Bilirubin Total 0.7 mg/dL (0.2-1.0); CKMB Creatine Kinase MB < 1.0 ng/mL (0.3-3.6); Creatine Phosphokinase 32 U/L (39-308); Glucose Level 115 mg/dL (74-106); Lipase 45 U/L (73-393); Protein, Total 5.8 g/dL (6.4-8.2); Sodium Level 136 mmol/L (136-145); Troponin (Emerg Dept Use Only) 0.11 ng/mL (0.0-0.045)
[2020-11-21] MEDS ORDERED: NA CHLORIDE 0.9% 100 ML ONE (00:26)
[2020-11-21] MEDS ORDERED: CEFEPIME 2 GM VIAL ONE (00:26)
[2020-11-21 00:31] LABS: Blood Morphology Comment NOT SEEN (NOT SEEN); Platelet Estimate DECR
--- NOTE | 2020-11-21 01:14 | EDPHYS ---
Physician Documentation [facility] Name: Hoang Camacho Age: 75 yrs Sex: Male : 1945 Arrival Date: 11/20/2020 Time: 21:54 Bed 2 Private MD: ED Physician Rao Villaseñor HPI: 11/21 00:32 This 75 yrs old Black Male presents to ER via Wheelchair with complaints of Fever, Fall mh7 Injury. 00:32 The patient reports fever, that was measured at 101 degrees Fahrenheit. Onset: The mh7 symptoms/episode began/occurred just prior to arrival, today. Modifying factors: there are no obvious modifying factors. Associated signs and symptoms: Pertinent positives: sore throat, less active, Pertinent negatives: abdominal pain, arthralgias, backache, chest pain, chills, cough, diarrhea, earache, headache, hemoptysis, myalgias, nausea, night sweats, runny nose, sinus congestion, sinus drainage, skin rash, shortness of breath, swelling, vomiting. Severity of symptoms: At their worst the symptoms were moderate today, in the emergency department the symptoms have improved moderately. Fever that started this evening and less active with sleeping most of the day. Found laying with head on the floor. Patient denies any complaints.. Historical: - Allergies: 11/20 22:50 Amoxicillin; rr5 22:50 Augmentin; rr5 - PMHx: 22:50 Atrial Fib; Hypertension; LYMPHOMA; brain tumor; rr5 - Immunization history:: Adult Immunizations up to date, Client reports receiving the 2nd dose of the Covid vaccine, Date received: October 2020. - Social history:: Smoking status: unknown. ROS: 11/21 00:49 Eyes: Negative for injury, pain, redness, and discharge, Neck: Negative for injury, mh7 pain, and swelling, Cardiovascular: Negative for chest pain, palpitations, and edema, Respiratory: Negative for shortness of breath, cough, wheezing, and pleuritic chest pain, Abdomen/GI: Negative for abdominal pain, nausea, vomiting, diarrhea, and constipation, Back: Negative for injury and pain, : Negative for injury, bleeding, discharge, and swelling, MS/Extremity: Negative for injury and deformity, Skin: Negative for injury, rash, and discoloration, Neuro: Negative for headache, weakness, numbness, tingling, and seizure, Psych: Negative for depression, anxiety, suicide ideation, homicidal ideation, and hallucinations, Allergy/Immunology: Negative for hives, rash, and allergies, Endocrine: Negative for neck swelling, polydipsia, polyuria, polyphagia, and marked weight changes, Hematologic/Lymphatic: Negative for swollen nodes, abnormal bleeding, and unusual bruising. Exam: 00:49 Constitutional: This is a well developed, well nourished patient who is awake, alert, mh7 and in no acute distress. Head/Face: Normocephalic, atraumatic. Eyes: Pupils equal round and reactive to light, extra-ocular motions intact. Lids and lashes normal. Conjunctiva and sclera are non-icteric and not injected. Cornea within normal limits. Periorbital areas with no swelling, redness, or edema. ENT: Nares patent. No nasal discharge, no septal abnormalities noted. Tympanic membranes are normal and external auditory canals are clear. Oropharynx with no redness, swelling, or masses, exudates, or evidence of obstruction, uvula midline. Mucous membranes moist. Neck: Trachea midline, no thyromegaly or masses palpated, and no cervical lymphadenopathy. Supple, full range of motion without nuchal rigidity, or vertebral point tenderness. No Meningismus. Chest/axilla: Normal chest wall appearance and motion. Nontender with no deformity. No lesions are appreciated. Cardiovascular: Regular rate and rhythm with a normal S1 and S2. No gallops, murmurs, or rubs. Normal PMI, no JVD. No pulse deficits. Respiratory: Lungs have equal breath sounds bilaterally, clear to auscultation and percussion. No rales, rhonchi or wheezes noted. No increased work of breathing, no retractions or nasal flaring. Abdomen/GI: Soft, non-tender, with normal bowel sounds. No distension or tympany. No guarding or rebound. No evidence of tenderness throughout. Back: No spinal tenderness. No costovertebral tenderness. Full range of motion. 00:49 Neuro: Awake and alert, GCS 15, oriented to person, place, time, and situation. Cranial nerves II-XII grossly intact. Motor strength 5/5 in all extremities. Sensory grossly intact. Cerebellar exam normal. Normal gait. Psych: Awake, alert, with orientation to person, place and time. Behavior, mood, and affect are within normal limits. 00:49 Skin: multiple ecchymotic areas over body without active bleeding. Vital Signs: 11/20 22:19 BP 98 / 49; Pulse 101; Resp 18; Temp 101.2; Pulse Ox 100% ; Weight 86.18 kg; Height 6 rr5 ft. 1 in. (185.42 cm); Pain 0/10; 23:30 BP 99 / 55; Pulse 50; Resp 19; Pulse Ox 97% ; rr5 04 00:20 BP 92 / 43; Pulse 88; Resp 16; Temp 100; Pulse Ox 93% ; rr5 01:00 BP 90 / 55; Pulse 89; Resp 16; Pulse Ox 98% ; rr5 02:10 BP 83 / 47; Pulse 78; Resp 16; Temp 98.2; Pulse Ox 99% ; rr5 02:17 BP 92 / 52; Pulse 82; Resp 17; Temp 98.2; Pulse Ox 99% ; rr5 02:25 BP 99 / 42; Pulse 85; Resp 17; Temp 98.3; Pulse Ox 100% ; rr5 11/20 22:19 Body Mass Index 25.07 (86.18 kg, 185.42 cm) rr5 MDM: 01:00 Differential diagnosis: viral Infection, bacterial infection, URI, bronchitis, mh7 pneumonia UTI, Fall, Neutropenia, head injury. Data reviewed: vital signs, nurses notes, old medical records, lab test result(s), CBC, electrolytes, EKG, radiologic studies, CT scan, plain films. Data interpreted: Pulse oximetry: on room air is 96 %. Interpretation: normal. Counseling: I had a detailed discussion with the patient and/or guardian regarding: the historical points, exam findings, and any diagnostic results supporting the discharge/admit diagnosis, lab results, radiology results, the need to transfer to another facility, for higher level of care, [facility] does not immediately have the required specialist. Response to treatment: the patient's symptoms have markedly improved after treatment. 01:13 Patient medically screened. [facility] 11/20 22:51 Order name: Amylase, Serum; Complete Time: 23:56 [facility] 11/20 22:51 Order name: Basic Metabolic Panel; Complete Time: 23:56 [facility] 11/20 22:51 Order name: Blood Culture Adult (2) [facility] 11/20 22:51 Order name: CBC with Diff; Complete Time: 00:43 [facility] 11/20 22:51 Order name: Ckmb; Complete Time: 23:56 [facility] 11/20 22:51 Order name: CPK; Complete Time: 23:56 [facility] 11/20 22:51 Order name: Lactate; Complete Time: 23:56 [facility] 11/20 22:51 Order name: LFT's; Complete Time: 23:56 [facility] 11/20 22:51 Order name: Lipase; Complete Time: 23:56 [facility] 11/20 22:51 Order name: Procalcitonin; Complete Time: 00:43 [facility] 11/20 22:51 Order name: Protime (+inr); Complete Time: 23:35 [facility] 11/20 22:51 Order name: Ptt, Activated; Complete Time: 23:35 [facility] 11/20 22:51 Order name: Troponin (emerg Dept Use Only); Complete Time: 23:56 [facility] 11/20 22:51 Order name: Chest Single View XRAY [facility] 11/20 22:51 Order name: Accucheck; Complete Time: 23:15 [facility] 11/20 22:51 Order name: Cardiac monitoring; Complete Time: 23:15 [facility] 11/20 23:21 Order name: Head C Spine Mpr Wo Con [facility] 11/20 23:31 Order name: Manual Differential; Complete Time: 00:43 [facility] 11/20 23:56 Order name: Type And Screen [facility] 11/21 00:34 Order name: Platelets, Leukored Pheresis [facility] 11/21 01:12 Order name: SARS-COV-2 RT PCR; Complete Time: 01:19 [facility] 11/21 02:19 Order name: Lactate Sepsis 2 HR Follow-up [facility] 11/20 22:51 Order name: EKG - Nurse/Tech; Complete Time: 23:43 [facility] 11/20 22:51 Order name: IV Saline Lock - Large Bore; Complete Time: 23:16 5 11/20 22:51 Order name: Labs collected and sent; Complete Time: 23:16 [facility] 11/20 22:51 Order name: O2 Per Protocol; Complete Time: 23:16 [facility] 11/20 22:51 Order name: O2 Sat Monitoring; Complete Time: 23:16 [facility] 11/21 00:27 Order name: Transfuse; Complete Time: 02:28 7 Administered Medications: 11/20 23:10 Drug: Tylenol 1000 mg Route: PO; rr5 11/21 01:00 Follow up: Response: No adverse reaction; Temperature is decreased rr5 11/20 23:15 Drug: NS 0.9% (30 ml/kg) 30 ml/kg Route: IV; Rate: bolus; Site: right antecubital; rv 11/21 01:00 Follow up: Response: No adverse reaction; IV Status: Completed infusion; IV Intake: rr5 2500ml 00:22 Drug: Cefepime 2 grams Route: IVPB; Rate: 200 ml/hr; Infused Over: 30 mins; Site: right rr5 antecubital; 01:20 Follow up: Response: No adverse reaction; IV Status: Completed infusion; IV Intake: rr5 100ml Disposition: 11/21/20 01:13 Transfer ordered to [facility]. Diagnosis are Intracranial Hemorrhage, Neutropenic Fever, Pancytopenia. - Reason for transfer: Higher level of care. - Accepting physician is Dr. Haney/Dr. De Luna. - Condition is Stable. - Problem is an acute exacerbation. - Symptoms have improved. Signatures: Dispatcher [employer] EDMS Silvio Nguyen, PASS WORKER-C PASS WORKER-Cla1 Michele Blum, RN RN rv Christos De Oliveira RN RN rr5 Rao Villaseñor MD MD 7 Corrections: (The following items were deleted from the chart) 11/20 23:21 23:10 Head Brain Wo Cont+CT.RAD.BRZ ordered. EDMS EDMS 23:39 23:10 C Spine Wo Con+CT.RAD.BRZ ordered. EDMS EDMS 11/21 00:34 00:19 CORONAVIRUS+MR.LAB.BRZ ordered. EDMS EDMS 02:37 01:13 11/21/2020 01:13 Transfer ordered to [facility]. rr5 Diagnosis is Intracranial Hemorrhage; Neutropenic Fever; Pancytopenia. Reason for transfer: Higher level of care. Accepting physician is Dr. Haney/Dr. De Luna. Condition is Stable. Problem is an acute exacerbation. Symptoms have improved. 7
--- NOTE | 2020-11-21 01:14 | ER ---
Nurse's Notes [facility] Name: Hoang Camacho Age: 75 yrs Sex: Male : 1945 Arrival Date: 11/20/2020 Time: 21:54 Bed 2 Private MD: Diagnosis: Intracranial Hemorrhage;Neutropenic Fever;Pancytopenia Presentation: 11/20 22:19 Chief complaint: Patient's son or daughter states: he has fever 101.4 F started 2 hours rr5 ago. I noticed his lethargic, been diagnosed of brain tumor admitted in [facility] dis a brain biopsy, on matrix chemotherapy IV got released 11-14-20. we are not sure if he fell down last night because my mom saw him face down in the restroom. Coronavirus screen: Client denies travel out of the [place] in the last 14 days. fever, Client presents with at least one sign or symptom that may indicate coronavirus-19. Standard/surgical mask placed on the client. Provider contacted for isolation considerations. Ebola Screen: Patient negative for fever greater than or equal to 101.5 degrees Fahrenheit, and additional compatible Ebola Virus Disease symptoms Patient denies exposure to infectious person. Patient denies travel to an Ebola-affected area in the 21 days before illness onset. Initial Sepsis Screen: Does the patient meet any 2 criteria? Temp <36.0*C (96.8*F)) or > 38.3*C (100.9*F). HR > 90 bpm. Does the patient have a suspected source of infection? No. Patient's initial sepsis screen is negative. If YES to both, name of provider notified: Rao Villaseñor MD. Risk Assessment: Do you want to hurt yourself or someone else? Patient reports no desire to harm self or others. Onset of symptoms was November 20, 2020. 22:19 Method Of Arrival: Wheelchair rr5 22:19 Acuity: ELLIOTT 2 rr5 Historical: - Allergies: 22:50 Amoxicillin; rr5 22:50 Augmentin; rr5 - PMHx: 22:50 Atrial Fib; Hypertension; LYMPHOMA; brain tumor; rr5 - Immunization history:: Adult Immunizations up to date, Client reports receiving the 2nd dose of the Covid vaccine, Date received: October 2020. - Social history:: Smoking status: unknown. Screenin/19 00:21 Abuse screen: Denies threats or abuse. Denies injuries from another. Nutritional rr5 screening: No deficits noted. Tuberculosis screening: No symptoms or risk factors identified. Fall Risk Fall in past 12 months (25 points). IV access (20 points). Gait- Impaired (20 pts.). Mental Status- Oriented to own ability (0 pts). Total Mota Fall Scale indicates High Risk Score (45 or more points). Fall prevention measures have been instituted. Side Rails Up X 2 Placed Close to Nursing Station Frequent Obs/Assessments Occuring Family Present and informed to notify staff if the need to leave the bedside As available patient and family educated on Fall Prevention Program and Strategies. Assessment: 11/20 22:20 General: Appears in no apparent distress. comfortable, Behavior is calm, cooperative, rr5 appropriate for age, drowsy, Reports fever for. Pain: Denies pain. Neuro: Level of Consciousness is awake, alert, obeys commands, Oriented to person, place, time. 22:20 Cardiovascular: Capillary refill < 3 seconds Patient's skin is warm and dry. rr5 Respiratory: Airway is patent Respiratory effort is even, unlabored, Respiratory pattern is regular, symmetrical. GI: No signs and/or symptoms were reported involving the gastrointestinal system. : No signs and/or symptoms were reported regarding the genitourinary system. EENT: No signs and/or symptoms were reported regarding the EENT system. Derm: Skin is intact, is healthy with good turgor, Skin temperature is warm. Musculoskeletal: Capillary refill < 3 seconds. 23:10 Reassessment: Patient appears in no apparent distress at this time. Patient and/or rr5 family updated on plan of care and expected duration. Pain level reassessed. awaiting for results. 23:29 Reassessment: WBC 0.1. Hgb 7.7, plt 4 called by radha, ED provider aware. rr5 11/21 00:22 Reassessment: Patient appears in no apparent distress at this time. reassess by ED rr5 provider plan for transfer, family member agreed. 01:57 Reassessment: report given to gave from [facility]. rr5 02:15 Reassessment: Patient appears in no apparent distress at this time. PLT bag started rr5 double checked by emily CALERO unit number [id number] exp 11/23/20 type a positive 235 ml. 02:25 Reassessment: report given to [facility] awake alert, ongoing Platelet bag infusion. vital rr5 signs taken and recorded. Vital Signs: 11/20 22:19 BP 98 / 49; Pulse 101; Resp 18; Temp 101.2; Pulse Ox 100% ; Weight 86.18 kg; Height 6 rr5 ft. 1 in. (185.42 cm); Pain 0/10; 23:30 BP 99 / 55; Pulse 50; Resp 19; Pulse Ox 97% ; rr5 04 00:20 BP 92 / 43; Pulse 88; Resp 16; Temp 100; Pulse Ox 93% ; rr5 01:00 BP 90 / 55; Pulse 89; Resp 16; Pulse Ox 98% ; rr5 02:10 BP 83 / 47; Pulse 78; Resp 16; Temp 98.2; Pulse Ox 99% ; rr5 02:17 BP 92 / 52; Pulse 82; Resp 17; Temp 98.2; Pulse Ox 99% ; rr5 02:25 BP 99 / 42; Pulse 85; Resp 17; Temp 98.3; Pulse Ox 100% ; rr5 11/20 22:19 Body Mass Index 25.07 (86.18 kg, 185.42 cm) rr5 ED Course: 11/20 21:54 Patient arrived in ED. am4 22:08 Michele Blum, GALILEA is Primary Nurse. rv 22:11 Rao Villaseñor MD is Attending Physician. mh7 22:19 Arm band placed on right wrist. rr5 22:25 Patient has correct armband on for positive identification. Placed in gown. Bed in low rr5 position. Call light in reach. Side rails up X2. electronic device monitor on. Pulse ox on. NIBP on. 22:27 Triage completed. rr5 23:00 Inserted saline lock: 20 gauge in right antecubital area, using aseptic technique. rv Blood collected. 23:00 Initial lab(s) drawn, by me, sent to lab. First set of blood cultures drawn by me. rv 23:12 Second set of blood cultures drawn by me. rv 23:23 Chest Single View XRAY In Process Unspecified. EDMS 23:42 Head C Spine Mpr Wo Con In Process Unspecified. EDMS 11/21 00:22 initiated a transfer with Elsa Moraolas from [facility]. She stated " mw2 we can't move forward with this transfer until we have the covid results.". 00:46 doc to doc with the Neurologist from [facility]. mw2 00:56 doc to doc with the ER physician from [facility]. mw2 01:13 administrative approval given by Elsa Sanchez/ patient has been accepted to [address] Emergency Department/ Dr. De Luna has accepted the patient in transfer/ report to be called to [phone]. 01:30 Inserted saline lock: 20 gauge in left forearm, using aseptic technique. rr5 02:30 No provider procedures requiring assistance completed. Patient transferred, IV remains rr5 in place. intact, No redness/swelling at site. Administered Medications: 11/20 23:10 Drug: Tylenol 1000 mg Route: PO; rr5 11/21 01:00 Follow up: Response: No adverse reaction; Temperature is decreased rr5 11/20 23:15 Drug: NS 0.9% (30 ml/kg) 30 ml/kg Route: IV; Rate: bolus; Site: right antecubital; rv 11/21 01:00 Follow up: Response: No adverse reaction; IV Status: Completed infusion; IV Intake: rr5 2500ml 00:22 Drug: Cefepime 2 grams Route: IVPB; Rate: 200 ml/hr; Infused Over: 30 mins; Site: right rr5 antecubital; 01:20 Follow up: Response: No adverse reaction; IV Status: Completed infusion; IV Intake: rr5 100ml Intake: 01:00 IV: 2500ml; Total: 2500ml. rr5 01:20 IV: 100ml; Total: 2600ml. rr5 Outcome: 01:13 ER care complete, transfer ordered by 7 02:35 Transferred by ground EMS to [facility], Transfer form completed. rr5 02:35 Condition: stable 02:35 Instructed on the need for transfer. 02:37 Patient left the ED. rr5 Addendum: 11/28/2020 12:08 Addendum: Culture Results: Positive blood culture. Phone call Attempt #1 Pt was a a5 transferred to [facility] and was recently discharged from there. Pt currently at home, spoke to pt's family and family reported pt has appointment today at 1330 with oncologist, results faxed to Dr. Rizzo (oncologist) ( ). Spoke to Dr. Rizzo's staff at [phone]. Signatures: Dispatcher [employer] EDDeborah Tracy RN RN aa5 Kristofer Caban mw2 Michele Blum RN RN Christos De Oliveira RN RN rr5 Rao Villaseñor MD MD 7 Abeba Medina 4 Corrections: (The following items were deleted from the chart) 11/21 02:35 02:20 BP 99 / 42; Pulse 85bpm; Resp 17bpm; Pulse Ox 100%; Temp 98.3F; rr5 rr5
[2020-11-21] MEDS ORDERED: D5 0.45 NS 1,000 ML IV ONE (01:41)
[2020-11-21] MEDS ORDERED: NA CHLORIDE 0.9% 250 ML ONE (01:41)
[2020-11-21] MEDS ORDERED: NA CHLORIDE 0.9% 500 ML ONE (02:29)
[2020-11-21 02:55] VITALS: BP 99/42; TEMP 98.3; O2SAT 100
--- NOTE | 2020-11-21 08:26 | RAD REPORT ---
EXAM DESCRIPTION: RAD - Chest Single View - 11/20/2020 11:23 pm CLINICAL HISTORY: FEVER COMPARISON: Portable March 2020 TECHNIQUE: AP portable chest image was obtained 11/20/2020 11:23 pm . FINDINGS: Lung volumes are reduced compared to prior imaging. Interstitial pattern is similar. No pe ripheral mass or consolidations seen and no significant failure or volume overload suspected. Right-s ided Port-A-Cath is in place. Heart and vasculature are normal. No measurable pleural effusion and no pneumothorax. No acute bony abnormality seen. No acute aortic findings suspected. IMPRESSION: No acute cardiopulmonary process. No significant change from comparison study.
--- NOTE | 2020-11-21 11:13 | RAD REPORT ---
EXAM DESCRIPTION: CT - CTHCSPWOC - 11/21/2020 6:48 am CLINICAL HISTORY: Fall/pain COMPARISON: None available TECHNIQUE: Axial CT of the head obtained from the skull apex to the skull base without contrast. Axi al CT images of the cervical spine obtained from the skull base through the thoracic inlet. Sagittal and coronal reformatted images available. This exam was performed according to our departmental dose- optimization program, which includes automated exposure control, adjustment of the mA and/or kV accor ding to patient size and/or use of iterative reconstruction technique. FINDINGS: CT head: Focal area of hemorrhage along the anterior right lateral convexity which appears to be extra-axial m easuring 0.7 cm in width with minimal local mass effect. This is subjacent to right parietal cranioto my which is new from the comparison study. Persistent vasogenic edema in the right frontoparietotempo ral region. Previously visualized mass is not identified on this study. Persistent 0.4 cm right to le ft midline shift. Mild prominence of ventricular system and sulcal spaces may be related to cerebral atrophy. The visualized paranasal sinuses and the mastoids are clear. Atherosclerotic calcification of the int racranial internal carotid arteries. No skull fracture identified. Visualized orbits and globes are unremarkable. Cervical CT: Mild motion artifact. Straightening of the cervical lordosis may be secondary to patient positioning. The atlantoaxial, a tlantodental, and occipitoatlantal intervals are preserved. No fracture identified. Vertebral body height preserved. Prevertebral soft tissues are unremarkable. Mild to moderate multilevel loss of intervertebral disc height with endplate spondylosis, facet arthr opathy, and uncovertebral spurring. Visualized skull base is intact. No fracture of the visualized facial bones. Visualized mastoid air c ells and paranasal sinuses are well aerated. Visualized thyroid is unremarkable. No cervical lymphadenopathy. No pneumothorax in the visualized lung apices. Carotid artery atherosclerosis. Right IJ Mediport partially visualized. IMPRESSION: 1. Small acute appearing extra-axial hemorrhage along the right frontal convexity nery uring 0.7 cm in width. Minimal local mass effect. 2. Persistent vasogenic edema in the right frontal lobe with approximately 4 mm right to left midli ne shift. 3. Interval right anterior parietal craniotomy. 4. No acute fracture or subluxation of the cervical spine. 5. Mild multilevel degenerative change of the cervical spine. Urgent finding reported to Dr. Villaseñor at 11/21/2020 12:10 AM CDT Electronically signed by: Brad Abreu 11/21/2020 12:11 AM CDT Due to temporary technical issues with the PACS/Fluency reporting system, reports are being signed by the in house radiologist without review as a courtesy to ensure prompt reporting. The interpreting r adiologist is fully responsible for the content of the report.
== END 2020-11-21 02:37 | disposition short-term general hospital (02) ==
LOC: ER 21:49
PROC: 30233R1 Transfusion of Nonautologous Platelets into Peripheral Vein, Percutaneous Approach (ICD-10-PCS; principal; 2020-11-21)
DX: S06.340A Traumatic hemorrhage of right cerebrum without loss of consciousness, initial encounter (principal); D61.818 Other pancytopenia; C71.9 Malignant neoplasm of brain, unspecified; I10 Essential (primary) hypertension; W19.XXXA Unspecified fall, initial encounter; Y93.9 Activity, unspecified; Y92.89 Other specified places as the place of occurrence of the external cause; Z85.72 Personal history of non-Hodgkin lymphomas; Z20.822 Contact with and (suspected) exposure to COVID-19; Z88.1 Allergy status to other antibiotic agents
CPT/HCPCS: 36430; 93005; 87040 ×2; 85025; 80048; 36415 ×2; 82150; 86900; 86850; 82550; 85610; 86901; 80076; 83605 ×2; 85730; 84484; 82553; 83690; 84145; 70450; 72125; 71045; U0003; J0692; P9035; J7799; J7050; J7040; J7030; 87077; 87186; 87205; 96365; 99285

== ENCOUNTER 2023-09-06 09:42 | Day surgery (SDC) | payer OTHER ==
[2023-09-02 13:01] LABS: Absolute Lymphocytes (CBC) 1.6 K/uL (0.7-4.9); Hematocrit 34.3 % (39.6-49.0); Lymphocytes % 27.8 % (15.3-44.8); MCV 96.4 fL (80-100); MPV 9.9 fL (7.6-11.3); Platelets 81 thou/uL (152-406); RBC Red Blood Cell Count 3.56 M/uL (4.33-5.43)
[2023-09-02 13:05] LABS: Protime INR 1.12
--- NOTE | 2023-09-02 13:18 | RAD REPORT ---
EXAM DESCRIPTION: RAD - Chest Pa And Lat (2 Views) - 09/02/2023 12:59 pm CLINICAL HISTORY: Pre op pending heart catheterization. Hypertension COMPARISON: 11/20/2020 TECHNIQUE: PA and lateral views of the chest were obtained. FINDINGS: The lungs are clear. Elevation of the right hemidiaphragm again seen. Heart size is normal and central vasculature is within normal limits. No pleural effusion or pneumothorax seen. No acute bony finding noted. IMPRESSION: No acute cardiopulmonary process.
[2023-09-02 13:19] LABS: Potassium 3.9 mEq/L (3.5-5.1)
[2023-09-02 13:31] LABS: Blood Morphology Comment NOT SEEN (NOT SEEN); Platelet Estimate DECR; White Blood Cell Scan OK (OK)
--- NOTE | 2023-09-05 13:37 | EKG ---
Test Date: 2023-09-02 Test Time: 13:38:54 Transportation Maintenance Supervisor: SILVER MEASUREMENT RESULTS: Intervals: Rate: 68 AK: 250 QRSD: 78 QT: 428 QTc: 455 [place]: P: AK: 250 QRS: 58 T: 82 INTERPRETIVE STATEMENTS: Sinus rhythm with 1st degree AV block with occasional premature ventricular complexes Nonspecific ST abnormality Abnormal ECG Compared to ECG 11/20/2020 23:22:00 Ventricular premature complex(es) now present ST (T wave) deviation now present Electronically Signed On 09-05-23 13:25:24 SPRING TACKER by Jaime Conklin
[2023-09-06] MEDS ORDERED: ATROPINE SULF 1 MG/10 ML SYR IV ONE (11:34)
[2023-09-06] MEDS ORDERED: VERAPAMIL HCL 10 MG/4 ML VIAL IV ONE (11:34)
[2023-09-06] MEDS ORDERED: LIDOCAINE 1% 20 ML MDV ONE (11:34)
[2023-09-06] MEDS ORDERED: HEPA 1000U/500MLS 2,000 UNIT/1,000 ML BAG IV ONE (11:34)
[2023-09-06] MEDS ORDERED: HEPARIN 10,000 UNIT/10 ML VIAL IV ONE (11:35)
[2023-09-06] MEDS ORDERED: HEPARIN 5000 UNIT/ML 1 ML VIAL ONE (11:35)
[2023-09-06] MEDS ORDERED: FENTANYL CITR 100 MCG/2 ML ONE (11:47)
[2023-09-06] MEDS ORDERED: MIDAZOLAM HCL 2 MG/2 ML INJ ONE (11:48)
[2023-09-06] MEDS ORDERED: NA CHLORIDE 0.9% 500 ML ONE (12:17)
--- NOTE | 2023-09-06 15:47 | OP ---
Date of Procedure: 09/06/2023 Surgeon: RONEY RAMIREZ Procedure Performed: 1.Selective coronary angiogram. 2.Left heart catheterization. 3.Right heart catheterization. Indication: Aortic valve stenosis evaluation. Access: 1.Right radial artery 6-[place], closed with TR band. 2.Right IJ 7-[place], closed with manual pressure. Complications: None. Bleeding: Less than 20 mL. Total Sedation Time: 1 hour. Description Of Procedure: After risks, benefits, alternatives were explained, patient agreed to proc eed and signed informed consent. The patient was brought into cardiac catheterization laboratory, pr epped and draped in sterile fashion. Then, I accessed right radial artery using pediatric micropunct ure kit, placed a 6-[place] sheath and also access right IJ using ultrasound guidance and micr opuncture kit, placed 7-[place] sheath and took a 7-[place] balloon-tipped [place] catheter throu gh the IJ access into the right atrium, right ventricle, pulmonary artery and wedge, obtained wavefor m and pressure and then thermodilution and cardiac output was obtained and then removed the [place] cath eter and then took a 5-[place] 4 catheter over J-wire through the radial artery into the aortic root, engaged left main, took standard views, exchanged for a 6-[place] JR4 catheter, engaged the RCA, took standard views and then aortic valve was crossed over the wire. Then, advanced the [place] ca theter into the LV and simultaneous measurements of LV and AO pressures were measured and then remove d the [place] catheter. Then, the radial sheath was removed, placed TR band with good hemostasis, a nd the IJ sheath was removed. Manual pressure was used for closure. Good hemostasis. Findings: Coronary angiogram: 1.Left main largely normal. 2.LAD: Ostial 20%, mid 30% stenosis, and distally 20% to 30%. Rest of the LAD is normal and diagon al branches are normal. 3.Left circumflex has proximal 80% stenosis, heavily calcified and it is a large artery. 4.RCA is large and has mid to distal 30% to 40% stenosis and the PDA is widely patent. The PLV has 90% to 99% stenosis in the mid segment with collaterals from the LAD. Right Heart Cath Measurements: RA pressure is 7, RV pressure 30/1, mean of 7. PA pressure 33/50, me an of 20. Pulmonary wedge pressure was 13 and the cardiac output was 4.78 L/minute by thermodilution method and then LVEDP was 11 mmHg. Mean gradient across the aortic valve was 36 mmHg and aortic chavez ve area was 0.85 sq cm. Conclusion: 1.Severe left circumflex stenosis, heavily calcified, needs atherectomy and PCI. Otherwise, mild co ronary artery disease. 2.Severe aortic valve stenosis with a mean gradient of 36 mmHg and 0.85 sq cm valve area. Plan: PCI with shockwave to the left circumflex and followed by transcatheter aortic valve replaceme nt. SR/MODL Voice ID: [id number] Report ID: [id number]
[2023-09-06 15:52] VITALS: O2SAT 100
[2023-09-06 16:09] VITALS: BP 134/75
== END 2023-09-06 16:14 | disposition home or self-care (01) ==
LOC: CCL 09:42
PROVIDERS: ATTEND Internal Medicine
DX: I35.1 Nonrheumatic aortic (valve) insufficiency (principal); I25.10 Atherosclerotic heart disease of native coronary artery without angina pectoris; I65.23 Occlusion and stenosis of bilateral carotid arteries; I48.0 Paroxysmal atrial fibrillation; I10 Essential (primary) hypertension; Z87.891 Personal history of nicotine dependence; Z79.899 Other long term (current) drug therapy; Z88.0 Allergy status to penicillin
CPT/HCPCS: 36415; 71046; 76937; 80048; 85025; 85610; 85730; 93005; 93458; 93460; 99152; 99153; C1893; J0461; J1644; J2001; J2250; J3010; J7040; Q9967